=== PATIENT | female | born 1950 | race Caucasian/White ===

== ENCOUNTER 2022-05-12 14:34 | Emergency (ER) | payer MEDICARE, SELFPAY ==
[2022-05-12 14:39] VITALS: BP 135/71; PULSE 89; RESP 18; TEMP 36.6; O2SAT 98; BMI 23.6
[2022-05-12 15:02] VITALS: PULSE 89; O2SAT 95
--- NOTE | 2022-05-12 15:21 | CRLHL7_ITS ---
For Patients: As a result of the Century Cures Act, medical imaging exams and procedure reports are released immediately into your electronic medical record. You may view this report before your referring provider. If you have questions, please contact your health care provider. INDICATION: COUGH HISTORY: Cough. COMPARISON: None. TECHNIQUE: Chest, 2 views. FINDINGS: Heart size is obscured. There is a mass present in the right lung, which is suspicious for malignancy. Chest CT is suggested for further assessment. This involves the right middle lobe, and on the lateral projection, measures approximately 15 cm in dimension. There is no pneumothorax. The left lung and pleural space are within normal limits. Case was reviewed with Dr. Patricia of the emergency department, 05/12/2022, 1625 hours. IMPRESSION: 1. Region of masslike consolidation in the right lung. 2. No comparison exam is available for review. Chest CT is suggested for further assessment. Dictated by Too Greenberg MD @ 05/12/2022 4:27:09 PM Dictated by: Too Greenberg MD @ 05/12/2022 16:27:15 (Electronically Signed)
--- OUTSIDE RECORDS SUMMARY | 2022-05-12 15:37 | XMS_ITS | Clinical Summary ---
:1950 Author Organization [facility] [place] [address] Care Team Providers Name Role Phone Chitra Bruno MD Primary Care Provider [phone] Allergies Active Allergy Reactions Severity Noted Date Comments Penicillins 09/05/2010 Sulfa (Sulfonamide Antibiotics) 1 Medications Medication Sig Dispensed Refills Start Date End Date Status estrogens conj Take 1 tablet by 0 09/05/2010 Active synthetic (CENESTIN) mouth once daily. 0.9 mg tablet FLUoxetine (PROZAC) 10 Take 1 capsule by 0 1 Active mg capsule mouth every morning. alendronate (FOSAMAX) Take 1 tablet by 12 tablet 3 09/28/2010 Active 70 mg mouth once a week tabletIndications: in the morning. Osteoporosis Take on empty stomach with full glass of water. Do not lie down for 1 hr. Active Problems Problem Noted Date Osteopenia 09/05/2010 Immunizations Name Administration Dates Next Due Influenza, IIV3 (Age >=3 years) 09/05/2010 Tdap 09/05/2010 Family History Medical History Relation Name Comments Cancer Father bladder Cancer Mother ovarian, age 65 Cancer-breast No Family History Relation Name Status Comments Father Mother Social History Tobacco Use Types Packs/Day Years Used Date Never Smoker Smokeless Tobacco: Never Used Alcohol Use Standard Drinks/Week Comments Yes 0 (1 standard drink = 0.6 oz pure alcoho l) occa Alcohol Habits Answer Date Recorded How often do you have a drink containing alcohol? Not asked How many drinks containing alcohol do you have on a typical Not asked day when you are drinking? How often do you have six or more drinks on one occasion? No t asked Comment: occa 09/05/2010 Sex Assigned at Date Recorded Not on file Obstetrics History Last Filed Vital Signs Vital Sign Reading Time Taken Comments Blood Pressure 118/78 09/28/2010 2:38 PM [employer] Pulse 71 09/28/2010 2:38 PM [employer] Temperature - - Respiratory Rate - - Oxygen Saturation - - Inhaled Oxygen Concentration - - Weight 85.2 kg (187 lb 12.8 oz) 09/28/2010 2:38 PM [employer] Height 174 cm (5' 8.5) 09/05/2010 3:52 PM [employer] Body Mass Index 28.14 09/05/2010 3:52 PM [employer] Plan of Treatment Health Maintenance Due Date Last Done Comments COVID-19 vaccine series (#1) 01/25/1951 Depression screening for age 12+ 1964 BMI (ht and wt on same day) for age 18+ 1970 Hepatitis C screening for age 18-79 1970 Colonoscopy through age 75 1997 Lipids for age 45-75 1997 Zoster (shingles) series for age 50+ (1 of 2002 2) Mammogram for age 45-75 09/21/2011 09/21/2010, 09/05/2010 DEXA/DXA scan for age 65+ 2017 09/12/2010 Pneumococcal series for age 65+ (1 - PCV) 2017 Tetanus booster 09/05/2020 09/05/2010 Influenza for age 65+ 04/26/2022 09/05/2010 Tdap Completed 09/05/2010 Results Not on filefrom Last 3 Months Insurance Payer Benefit Plan / Subscriber ID Effective Dates Phone Addre ss Type Group [employer]UE [employer]OSS [employer] OF [id number] 2010-Present [address] [place] [address] Care Teams Director Of Marketing Communications Relationship Specialty Start Date End Date Chitra Bruno MD PCP - General Family Practice 08/29/10 [address] [place] [address]
[2022-05-12] MEDS: IPRAT-ALBUT 0.5-2.5 MG/3 ML NEB 1 NEB IH (15:40)
--- NOTE | 2022-05-12 15:45 | ED_ITS ---
HPI - SOB/Dyspnea General Date Seen: 05/12/22 <Tony Patricia MD - Last Filed: 05/13/22 20:10> Chief Complaint: Shortness of Breath/Dyspnea <Tony Patricia MD - Last Filed: 05/13/22 20:10> Stated Complaint: Short of Breath <Tony Patricia MD - Last Filed: 05/13/22 20:10> Time Seen by Provider: 05/12/22 14:37 <Tony Patricia MD - Last Filed: 05/13/22 20:10> Source: patient <Tony Patricia MD - Last Filed: 05/13/22 20:10> Mode of arrival: ambulatory <Tony Patricia MD - Last Filed: 05/13/22 20:10> Limitations: no limitations <Tony Patricia MD - Last Filed: 05/13/22 20:10> History of Present Illness HPI Narrative: Patient is a helen 71-year-old female presents here with the 3 day history of progressive shortness of breath, she notices this when she moves around or talks, and after talking to the nurse line today, they suggested she comes in to be seen. Is noted with this she has had a runny nose, postnasal drip, and a cough. Low-grade fever, but she has not been really good about taking her temperature the highest she has got is 99. She denies any previous history of cardiac or pulmonary problems, there is no purulence to her sputum, she has had no chest pain, leg swelling, nausea vomiting, her appetites been good. She is COVID vaccinated x4, her son who was also sick, and she feels she may have got that from him. He tested COVID negative 3 times. <Tony Patricia MD - Last Filed: 05/13/22 20:10> MD elicited complaint: shortness of breath and cough <Tony Patricia MD - Last Filed: 05/13/22 20:10> Onset (ago): day(s) <Tony Patricia MD - Last Filed: 05/13/22 20:10> Timing: constant and progressively worsening <Tony Patricia MD - Last Filed: 05/13/22 20:10> Severity: moderate <Tony Patricia MD - Last Filed: 05/13/22 20:10> Exacerbating factors: coughing and talking <Tony Patricia MD - Last Filed: 05/13/22 20:10> Relieving factors: upright position <Tony Patricia MD - Last Filed: 05/13/22 20:10> Associated symptoms: wheezing and chest congestion <Tony Patricia MD - Last Filed: 05/13/22 20:10> Treatment prior to arrival: other (Treated with a decongestant x1) <Tony Patricia MD - Last Filed: 05/13/22 20:10> Related Data Home oxygen amount: none <Tony Patricia MD - Last Filed: 05/13/22 20:10> Home Medications: Home Medications Medication Instructions Recorded Confirmed acetaminophen 500 mg tablet mg PO .As Needed as needed PRN 03/14/22 03/14/22 ascorbate calcium (vitamin C) 500 500 mg PO BID 03/14/22 03/14/22 mg tablet ascorbic acid (vitamin C) 1,000 mg 1 g PO DAILY 03/14/22 03/14/22 tablet cholecalciferol (vitamin D3) 50 2,000 unit PO DAILY 03/14/22 03/14/22 mcg (2,000 unit) capsule cyanocobalamin (vitamin B-12) 1,000 mcg PO .weekly 03/14/22 03/14/22 1,000 mcg tablet glucosamine sulfate 1,500 mg oral mg PO DAILY 03/14/22 03/14/22 powder packet ibuprofen 200 mg tablet mg PO PRN 03/14/22 03/14/22 multivitamin with minerals-ferrous tab PO DAILY 03/14/22 03/14/22 sulfate 4.5 mg iron tablet (One Daily Multivitamins with Minerals) tumeric 100 mg-wallace 150 mg-olive cap PO DAILY 03/14/22 03/14/22 50 mg-oreg 150 mg-caprylate capsule zinc 50 mg tablet 50 mg PO QDAY 03/14/22 03/14/22 Previous Rx's Medication Instructions Recorded alendronate 70 mg tablet 70 mg PO .Every 7 Days #12 tabs 03/14/22 estradiol 0.5 mg tablet 0.5 mg PO QDAY #90 tabs 03/14/22 sulfuric acid 30 %-sulfonated 1 applic mucous membrane ONCE PRN 03/14/22 phenol 50 % mucosal swab pain 2 doses #12 ea (Debacterol) doxycycline monohydrate 100 mg 100 mg PO BID #19 caps 05/12/22 capsule <Tony Patricia MD - Last Filed: 05/13/22 20:10> Allergies/Adverse Reactions: Allergies Allergy/AdvReac Type Severity Reaction Status Date / Time penicillin V Allergy Mild Rash Verified 05/12/22 16:45 Sulfa (Sulfonamide Allergy Mild Verified 05/12/22 16:45 Antibiotics) <Tony Patricia MD - Last Filed: 05/13/22 20:10> Review of Systems Status of ROS: Reports: 10 or more systems reviewed and unremarkable except as noted in History and below <Tony Patricia MD - Last Filed: 05/13/22 20:10> PFSH PFS Medical History: Medical History Fracture of distal end of right radius History of fracture of wrist (08/2017) History of in vitro fertilization Hot flashes due to menopause Left shoulder pain Osteopenia (2017) <Tony Patricia MD - Last Filed: 05/13/22 20:10> Surgical History: Surgical History History of bilateral cataract extraction (2017) History of colonoscopy History of surgery on wrist History of total abdominal hysterectomy and bilateral salpingo-oophorectomy (2002) <Tony Patricia MD - Last Filed: 05/13/22 20:10> Family History: Family History Father Bladder cancer, Onset Age: 60 High blood pressure Paternal Grandfather Coronary artery disease Mother Ovarian cancer, Onset Age: 65 Sister Thyroid disease <Tony Patricia MD - Last Filed: 05/13/22 20:10> Social History: Social History Narrative: exercises regularly- 3-4/week gym, weights, cardio non-smoker rarely consumes alcohol lives [place] lives with 21 yo adopted Aspergers son Smoking Status: Never smoker How often do you have a drink containing alcohol: monthly or less How often do you have six or more drinks on one occasion: Never AUDIT-C Alcohol total score: 1 Non-prescribed substance use: denies use Little interest or pleasure in doing things: several days Feeling down, depressed, or hopeless: several days <Tnoy Patricia MD - Last Filed: 05/13/22 20:10> Exam Narrative: Exam Narrative: Patient is seen in the room, she does have a bit of a stuttering conversation associated with not being able to get all of her sentences out. She is alert and oriented x3, with good color her pupils are equal round react to light there is no scleral icterus redness TMs are normal oropharynx is normal, neck is supple full range of motion JVP is flat, she has musical wheezes in all lung wood, and appears to be hyperinflated to this examiner. No dullness to percussion and no crackles noted, heart sounds S1-S2 is normal no S3-S4 clicks murmurs or gallops, her abdomen is soft there is no guarding no past splenomegaly skin reveals no petechiae or rashes, there is no edema of her lower extremities negative Homans sign, pulses are normal, she moves her upper lower extremities through normal range of motion right versus left symmetrical, with normal proximal and distal muscle strength. <Tony Patricia MD - Last Filed: 05/13/22 20:10> Const: Vital Signs, click to edit/add: Vital Signs - 24 hr 05/12/22 14:39 05/12/22 15:02 Temperature 97.8 F Pulse Rate [Right Pulse Oximeter] 89 89 Respiratory Rate 18 Blood Pressure [Ri ght Upper Arm] 135/71 Pulse Oximetry 98 95 Oxygen Delivery Me thod Room Air Room Air <Tony Patricia MD - Last Filed: 05/13/22 20:10> Vital Signs, click to edit/add: Vital Signs - 24 hr 05/12/22 14:39 05/12/22 15:02 Temperature 97.8 F Pulse Rate [Right Pulse Oximeter] 89 89 Respiratory Rate 18 Blood Pressure [Ri ght Upper Arm] 135/71 Pulse Oximetry 98 95 Oxygen Delivery Me thod Room Air Room Air <Joyce Levin MD - Last Filed: 05/12/22 19:19> Documenting provider has reviewed patient's vital signs: yes <Tony Patricia MD - Last Filed: 05/13/22 20:10> Course Reevaluation(s) Reevaluation #1: Have reviewed with patient in shown her a picture of her chest x-ray, that it is abnormal on the right side. We will bridge seed with a chest CT PE protocol. Her D-dimer is just very minimally elevated. Radiology had called Dr. Patricia and I was in the office when they called to report her abnormal chest x-ray. She has been getting recurrent aphthous ulcers, nasal congestion and headache. She states the aphthous ulcers, and then the other symptoms come. I do note when she is talking to me that she is a bit tachypneic just talking in regular sentences. She is not overtly hypoxic however. <Joyce Levin MD - Last Filed: 05/12/22 19:19> Time: 16:39 <Joyce Levin MD - Last Filed: 05/12/22 19:19> Reevaluation #2: Reviewed with patient her CT. There are no pulmonary emboli, there are possibly some infectious or inflammatory infiltrates in the right upper lobe, mass in the right middle lobe. We discussed that there was concern that this could be a cancerous process. She is going to need further workup an outpatient evaluation. I do know that [place] has a pulmonary clinic that specializes and masses and nodules, new diagnosis of cancers. She is going to need to contact her clinic and get set up for appropriate follow-up. She is not hypoxic here, does not require hospitalization or inpatient workup of this at this time. <Joyce Levin MD - Last Filed: 05/12/22 19:19> Time: 19:08 <Joyce Levin MD - Last Filed: 05/12/22 19:19> Vital Signs Vital signs: Initial Vital Signs Temperature 97.8 F 05/12/22 14:39 Temperature Source Temporal Artery Scan 05/12/22 14:39 Pulse Rate 89 05/12/22 14:39 Respiratory Rate 18 05/12/22 14:39 Blood Pressure 135/71 05/12/22 14:39 Blood Pressure Mean 92 05/12/22 14:39 Blood Pressure Position Sitting 05/12/22 14:39 Pulse Oximetry 98 05/12/22 14:39 Oxygen Delivery Method 05/12/22 14:39 Vital Signs Temperature 97.8 F 05/12/22 14:39 Pulse Rate 89 05/12/22 14:39 Respiratory Rate 18 05/12/22 14:39 Blood Pressure 135/71 05/12/22 14:39 Pulse Oximetry 98 05/12/22 14:39 Oxygen Delivery Method 05/12/22 14:39 Temperature 97.8 F 05/12/22 19:43 Pulse Rate 98 05/12/22 19:43 Respiratory Rate 18 05/12/22 19:43 Blood Pressure 131/57 L 05/12/22 19:43 Pulse Oximetry 95 05/12/22 19:15 Oxygen Delivery Method 05/12/22 19:15 <Tony Patricia MD - Last Filed: 05/13/22 20:10> Initial Vital Signs Temperature 97.8 F 05/12/22 14:39 Temperature Source Temporal Artery Scan 05/12/22 14:39 Pulse Rate 89 05/12/22 14:39 Respiratory Rate 18 05/12/22 14:39 Blood Pressure 135/71 05/12/22 14:39 Blood Pressure Mean 92 05/12/22 14:39 Blood Pressure Position Sitting 05/12/22 14:39 Pulse Oximetry 98 05/12/22 14:39 Oxygen Delivery Method 05/12/22 14:39 Vital Signs Temperature 97.8 F 05/12/22 14:39 Pulse Rate 89 05/12/22 14:39 Respiratory Rate 18 05/12/22 14:39 Blood Pressure 135/71 05/12/22 14:39 Pulse Oximetry 98 05/12/22 14:39 Oxygen Delivery Method 05/12/22 14:39 Temperature 97.8 F 05/12/22 19:43 Pulse Rate 98 05/12/22 19:43 Respiratory Rate 18 05/12/22 19:43 Blood Pressure 131/57 L 05/12/22 19:43 Pulse Oximetry 95 05/12/22 19:15 Oxygen Delivery Method 05/12/22 19:15 <Joyce Levin MD - Last Filed: 05/12/22 19:19> MDM - SOB/Dyspnea MDM Narrative Medical decision making narrative: Life-threatening differential diagnosis includes occluded COPD exacerbation, pulmonary edema, acute coronary syndromes, pulmonary embolism, pneumonia, and pneumothorax. Other differential diagnosis considerations include asthma, bronchitis as well as other etiologies We will test her for COVID, will do the normal shortness of breath workup, we will get a chest x-ray, and I will give her a DuoNeb now. As she is wheezy. <Tony Patricia MD - Last Filed: 05/13/22 20:10> Lab Data Attestation: I reviewed the patient's lab results. <Joyce Levin MD - Last Filed: 05/12/22 19:19> Labs: Lab Results 05/12/22 05/12/22 05/12/22 Range/Units 14:49 14:50 15:21 WBC (4.50-11.00) K/uL RBC (4.00-5.20) m/uL Hgb (12.0-16.0) gm/dL Hct (33.0-51.0) % MCV (80-100) fL MCH (26-34) pg MCHC (32-36) gm/dL RDW Coeff of [place] (11.5-15.5) % Plt Count (140-440) K/uL Neut % (Auto) (42.0-72.0) % Lymph % (Auto) (20-44) % Emmons % (Auto) (0.0-11.0) % Eos % (Auto) (0.0-7.0) % Baso % (Auto) (0.0-3.0) % Neut # (Auto) (1.7-7.0) K/uL Lymph # (Auto) (0.90-2.90) K/uL Emmons # (Auto) (0.00-0.90) K/UL Eos # (Auto) (0.00-0.50) K/uL Baso # (Auto) (0.00-0.30) K/uL Abs Immat Gran (auto) (0.00-0.30) K/uL D-Dimer Quant (PE/DVT) (0.00-0.50) ug/ml Sodium (135-149) mmol/L Potassium (3.6-5.1) mmol/L Chloride (96-114) mmol/L Carbon Dioxide (20-32) mmol/L BUN (7-30) mg/dL Creatinine (0.5-1.5) mg/dL Estimated Creat Clear Estimated GFR ml/min Glucose (60-115) mg/dL Lactate (0.5-1.9) mmol/L Calcium (8.4-10.6) mg/dL C-Reactive Protein (0.5-1.0) mg/dL NT-Pro-B Natriuret Pep (0-125) PG/mL SARS-CoV-2 (PCR) Negative SARS-CoV-2 Negative SARS-CoV-2 (Negative) Influenza Type A (PCR) Negative PCR FLU A (Negative) Influenza Type B (PCR) Negative PCR FLU B (Negative) RSV (PCR) Negative PCR RSV (Negative) POC Troponin I 0.00 L (0.01-0.04) ng/ml 05/12/22 05/12/22 05/12/22 Range/Units 15:45 15:45 15:45 WBC 17.78 H (4.50-11.00) K/uL RBC 4.89 (4.00-5.20) m/uL Hgb 14.4 (12.0-16.0) gm/dL Hct 43.3 (33.0-51.0) % MCV 89 (80-100) fL MCH 29 (26-34) pg MCHC 33 (32-36) gm/dL RDW Coeff of [place] 12.9 (11.5-15.5) % Plt Count 279 (140-440) K/uL Neut % (Auto) 80.2 H (42.0-72.0) % Lymph % (Auto) 10.9 L (20-44) % Emmons % (Auto) 8.7 (0.0-11.0) % Eos % (Auto) 0.0 (0.0-7.0) % Baso % (Auto) 0.0 (0.0-3.0) % Neut # (Auto) 14.30 H (1.7-7.0) K/uL Lymph # (Auto) 1.90 (0.90-2.90) K/uL Emmons # (Auto) 1.50 H (0.00-0.90) K/UL Eos # (Auto) 0.00 (0.00-0.50) K/uL Baso # (Auto) 0.00 (0.00-0.30) K/uL Abs Immat Gran (auto) 0.04 (0.00-0.30) K/uL D-Dimer Quant (PE/DVT) 0.52 H (0.00-0.50) ug/ml Sodium 133 L (135-149) mmol/L Potassium 3.7 (3.6-5.1) mmol/L Chloride 98 (96-114) mmol/L Carbon Dioxide 28 (20-32) mmol/L BUN 15 (7-30) mg/dL Creatinine 0.6 (0.5-1.5) mg/dL Estimated Creat Clear 53.56 Estimated GFR 97 ml/min Glucose 114 (60-115) mg/dL Lactate (0.5-1.9) mmol/L Calcium 8.5 (8.4-10.6) mg/dL C-Reactive Protein 8.2 H (0.5-1.0) mg/dL NT-Pro-B Natriuret Pep 284 H (0-125) PG/mL SARS-CoV-2 (PCR) (Negative) Influenza Type A (PCR) (Negative) Influenza Type B (PCR) (Negative) RSV (PCR) (Negative) POC Troponin I (0.01-0.04) ng/ml 05/12/22 Range/Units 15:45 WBC (4.50-11.00) K/uL RBC (4.00-5.20) m/uL Hgb (12.0-16.0) gm/dL Hct (33.0-51.0) % MCV (80-100) fL MCH (26-34) pg MCHC (32-36) gm/dL RDW Coeff of [place] (11.5-15.5) % Plt Count (140-440) K/uL Neut % (Auto) (42.0-72.0) % Lymph % (Auto) (20-44) % Emmons % (Auto) (0.0-11.0) % Eos % (Auto) (0.0-7.0) % Baso % (Auto) (0.0-3.0) % Neut # (Auto) (1.7-7.0) K/uL Lymph # (Auto) (0.90-2.90) K/uL Emmons # (Auto) (0.00-0.90) K/UL Eos # (Auto) (0.00-0.50) K/uL Baso # (Auto) (0.00-0.30) K/uL Abs Immat Gran (auto) (0.00-0.30) K/uL D-Dimer Quant (PE/DVT) (0.00-0.50) ug/ml Sodium (135-149) mmol/L Potassium (3.6-5.1) mmol/L Chloride (96-114) mmol/L Carbon Dioxide (20-32) mmol/L BUN (7-30) mg/dL Creatinine (0.5-1.5) mg/dL Estimated Creat Clear Estimated GFR ml/min Glucose (60-115) mg/dL Lactate 0.7 (0.5-1.9) mmol/L Calcium (8.4-10.6) mg/dL C-Reactive Protein (0.5-1.0) mg/dL NT-Pro-B Natriuret Pep (0-125) PG/mL SARS-CoV-2 (PCR) (Negative) Influenza Type A (PCR) (Negative) Influenza Type B (PCR) (Negative) RSV (PCR) (Negative) POC Troponin I (0.01-0.04) ng/ml <Tony Patricia MD - Last Filed: 05/13/22 20:10> Lab Results 05/12/22 05/12/22 05/12/22 Range/Units 14:49 14:50 15:21 WBC (4.50-11.00) K/uL RBC (4.00-5.20) m/uL Hgb (12.0-16.0) gm/dL Hct (33.0-51.0) % MCV (80-100) fL MCH (26-34) pg MCHC (32-36) gm/dL RDW Coeff of [place] (11.5-15.5) % Plt Count (140-440) K/uL Neut % (Auto) (42.0-72.0) % Lymph % (Auto) (20-44) % Emmons % (Auto) (0.0-11.0) % Eos % (Auto) (0.0-7.0) % Baso % (Auto) (0.0-3.0) % Neut # (Auto) (1.7-7.0) K/uL Lymph # (Auto) (0.90-2.90) K/uL Emmons # (Auto) (0.00-0.90) K/UL Eos # (Auto) (0.00-0.50) K/uL Baso # (Auto) (0.00-0.30) K/uL Abs Immat Gran (auto) (0.00-0.30) K/uL D-Dimer Quant (PE/DVT) (0.00-0.50) ug/ml Sodium (135-149) mmol/L Potassium (3.6-5.1) mmol/L Chloride (96-114) mmol/L Carbon Dioxide (20-32) mmol/L BUN (7-30) mg/dL Creatinine (0.5-1.5) mg/dL Estimated Creat Clear Estimated GFR ml/min Glucose (60-115) mg/dL Lactate (0.5-1.9) mmol/L Calcium (8.4-10.6) mg/dL C-Reactive Protein (0.5-1.0) mg/dL NT-Pro-B Natriuret Pep (0-125) PG/mL SARS-CoV-2 (PCR) Negative SARS-CoV-2 Negative SARS-CoV-2 (Negative) Influenza Type A (PCR) Negative PCR FLU A (Negative) Influenza Type B (PCR) Negative PCR FLU B (Negative) RSV (PCR) Negative PCR RSV (Negative) POC Troponin I 0.00 L (0.01-0.04) ng/ml 05/12/22 05/12/22 05/12/22 Range/Units 15:45 15:45 15:45 WBC 17.78 H (4.50-11.00) K/uL RBC 4.89 (4.00-5.20) m/uL Hgb 14.4 (12.0-16.0) gm/dL Hct 43.3 (33.0-51.0) % MCV 89 (80-100) fL MCH 29 (26-34) pg MCHC 33 (32-36) gm/dL RDW Coeff of [place] 12.9 (11.5-15.5) % Plt Count 279 (140-440) K/uL Neut % (Auto) 80.2 H (42.0-72.0) % Lymph % (Auto) 10.9 L (20-44) % Emmons % (Auto) 8.7 (0.0-11.0) % Eos % (Auto) 0.0 (0.0-7.0) % Baso % (Auto) 0.0 (0.0-3.0) % Neut # (Auto) 14.30 H (1.7-7.0) K/uL Lymph # (Auto) 1.90 (0.90-2.90) K/uL Emmons # (Auto) 1.50 H (0.00-0.90) K/UL Eos # (Auto) 0.00 (0.00-0.50) K/uL Baso # (Auto) 0.00 (0.00-0.30) K/uL Abs Immat Gran (auto) 0.04 (0.00-0.30) K/uL D-Dimer Quant (PE/DVT) 0.52 H (0.00-0.50) ug/ml Sodium 133 L (135-149) mmol/L Potassium 3.7 (3.6-5.1) mmol/L Chloride 98 (96-114) mmol/L Carbon Dioxide 28 (20-32) mmol/L BUN 15 (7-30) mg/dL Creatinine 0.6 (0.5-1.5) mg/dL Estimated Creat Clear 53.56 Estimated GFR 97 ml/min Glucose 114 (60-115) mg/dL Lactate (0.5-1.9) mmol/L Calcium 8.5 (8.4-10.6) mg/dL C-Reactive Protein 8.2 H (0.5-1.0) mg/dL NT-Pro-B Natriuret Pep 284 H (0-125) PG/mL SARS-CoV-2 (PCR) (Negative) Influenza Type A (PCR) (Negative) Influenza Type B (PCR) (Negative) RSV (PCR) (Negative) POC Troponin I (0.01-0.04) ng/ml 05/12/22 Range/Units 15:45 WBC (4.50-11.00) K/uL RBC (4.00-5.20) m/uL Hgb (12.0-16.0) gm/dL Hct (33.0-51.0) % MCV (80-100) fL MCH (26-34) pg MCHC (32-36) gm/dL RDW Coeff of [place] (11.5-15.5) % Plt Count (140-440) K/uL Neut % (Auto) (42.0-72.0) % Lymph % (Auto) (20-44) % Emmons % (Auto) (0.0-11.0) % Eos % (Auto) (0.0-7.0) % Baso % (Auto) (0.0-3.0) % Neut # (Auto) (1.7-7.0) K/uL Lymph # (Auto) (0.90-2.90) K/uL Emmons # (Auto) (0.00-0.90) K/UL Eos # (Auto) (0.00-0.50) K/uL Baso # (Auto) (0.00-0.30) K/uL Abs Immat Gran (auto) (0.00-0.30) K/uL D-Dimer Quant (PE/DVT) (0.00-0.50) ug/ml Sodium (135-149) mmol/L Potassium (3.6-5.1) mmol/L Chloride (96-114) mmol/L Carbon Dioxide (20-32) mmol/L BUN (7-30) mg/dL Creatinine (0.5-1.5) mg/dL Estimated Creat Clear Estimated GFR ml/min Glucose (60-115) mg/dL Lactate 0.7 (0.5-1.9) mmol/L Calcium (8.4-10.6) mg/dL C-Reactive Protein (0.5-1.0) mg/dL NT-Pro-B Natriuret Pep (0-125) PG/mL SARS-CoV-2 (PCR) (Negative) Influenza Type A (PCR) (Negative) Influenza Type B (PCR) (Negative) RSV (PCR) (Negative) POC Troponin I (0.01-0.04) ng/ml <Joyce Levin MD - Last Filed: 05/12/22 19:19> Imaging Data Chest x-ray: Attestation: I have reviewed the pertinent imaging results. <Joyce Bartholomew MD - Last Filed: 05/12/22 19:19> Radiologist's impression: Patient: NANY NINO Facility:?[facility] Patient ID:?[id number] Site Patient ID:?[id number]. Site :?[id number] Study:?XRay Chest 2 IMAGES-05/12/2022 3:51:33 PM Ordering Physician:Ricco Jimenez Final Report: INDICATION: COUGH HISTORY: Cough. COMPARISON: None. TECHNIQUE: Chest, 2 views. FINDINGS: Heart size is obscured. There is a mass present in the right lung, which is suspicious for malignancy. Chest CT is suggested for further assessment. This involves the right middle lobe, and on the lateral projection, measures approximately 15 cm in dimension. There is no pneumothorax. The left lung and pleural space are within normal limits. Case was reviewed with Dr. Patricia of the emergency department, 05/12/2022, 1625 hours. IMPRESSION: 1. Region of masslike consolidation in the right lung. 2. No comparison exam is available for review. Chest CT is suggested for further assessment. Dictated by Too Greenberg MD @ 05/12/2022 4:27:09 PM Dictated by: Too Greenberg MD @ 05/12/2022 16:27:15 <Joyce Levin MD - Last Filed: 05/12/22 19:19> CT scan - chest: Attestation: I have reviewed the pertinent imaging results. <Joyce Bartholomew MD - Last Filed: 05/12/22 19:19> Radiologist's impression: Patient: NANY NINO Facility:?[facility] Patient ID:?[id number] Site Patient ID:?[id number]. 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 No pulmonary emboli. Prevascular mediastinal adenopathy. Heart size is normal. No pericardial effusion. Small right effusion. subtle ill-defined centrilobular nodules peripheral right upper lobe could be infectious or inflammatory atelectasis in the posterior right upper lobe. There is a large right middle lobe heterogeneous mass measuring 16 centimeters craniocaudad dimension by a 9.5 x 14.5 cm area slight mass effect on the right cardiac border. Small right pericardial effusion. Small low-attenuation lesions in the left kidney probably reflecting cysts. No suspicious bony lesions. Impression: 1. Large 16 x 9.5 x 14.5 centimeter mass centered in the right middle lobe suspicious for malignancy. Mild mediastinal prevascular adenopathy. Small right effusion. 2. Subtle ill-defined centrilobular opacities in the right upper lobe could be infectious or inflammatory. Please note that all CT scans at this facility use dose modulation, iterative reconstruction, and/or weight-based dosing when appropriate to reduce radiation dose to as low as reasonably achievable. Dictated by Darcy Luna MD @ 05/12/2022 6:09:29 PM (Electronic Signature) <Joyce Levin MD - Last Filed: 05/12/22 19:19> ECG Data Attestation: I personally reviewed and interpreted this ECG as follows: (Sinus rhythm, 95 beats per minute. Nonspecific flipped T-waves V1 V2 without any significant ST segment changes. Flipped T-wave aVL without ST segment change) <Joyce Levin MD - Last Filed: 05/12/22 19:19> ECG interpretation date: 05/12/22 <Joyce Levin MD - Last Filed: 05/12/22 19:19> Critical Care Time Critical Care Time Critical Care Time: No <Joyce Levin MD - Last Filed: 05/12/22 19:19> Discharge Plan Discharge Clinical Impression: Infiltrate of lung present on computed tomography, Shortness of breath, Lung mass <Tony Patricia MD - Last Filed: 05/13/22 20:10> Patient Disposition: Home, Self-Care <Tony Patricia MD - Last Filed: 05/13/22 20:10> Condition: Stable <Tony Patricia MD - Last Filed: 05/13/22 20:10> Instructions: Bacterial Pneumonia (ED) <Tony Patricia MD - Last Filed: 05/13/22 20:10> Additional Instructions: Need to continue with oral antibiotics as there may be pneumonia on the CT scan. Need to follow up with primary provider next week remy and they will need to assist you in further appointments in work up of this lung mass. Acitivity as tolerated, do not push yourself to point of becoming short of breath. Should you develop increasing difficulty breathing, fever, coughing up blood or have further concerns, need to be re-evaluated. <Tony Patricia MD - Last Filed: 05/13/22 20:10> Activity Level: Activity as Tolerated <Tony Patricia MD - Last Filed: 05/13/22 20:10> Activity as Tolerated <Joyce Levin MD - Last Filed: 05/12/22 19:19> Prescriptions: New doxycycline monohydrate 100 mg capsule 100 mg PO BID Qty: 19 0RF No Action cholecalciferol (vitamin D3) 50 mcg (2,000 unit) capsule 2,000 unit PO DAILY Rx Instructions: MWF during the summer, daily during the winter. ibuprofen 200 mg tablet PO PRN acetaminophen 500 mg tablet PO .As Needed as needed PRN Rx Instructions: NO MORE THAN 4000 MG/DAY cyanocobalamin (vitamin B-12) 1,000 mcg tablet 1,000 mcg PO .weekly ascorbic acid (vitamin C) 1,000 mg tablet 1 g PO DAILY zinc 50 mg tablet 50 mg PO QDAY One Daily Multi-Vit w-Mineral 4.5 mg iron tablet PO DAILY ascorbate calcium (vitamin C) 500 mg tablet 500 mg PO BID glucosamine sulfate 1,500 mg powder in packet PO DAILY tsnoxwf-yfvg-xahmx-oreg-capryl 100 mg-150 mg- 50 mg-150 mg capsule PO DAILY Debacterol 30-50 % swab 1 applic mucous membrane ONCE PRN (Reason: pain) Qty: 12 0RF Rx Instructions: Use on after does ulcer 5-10 seconds x1, use as needed, then rinse mouth alendronate 70 mg tablet 70 mg PO .Every 7 Days Qty: 12 4RF estradiol 0.5 mg tablet 0.5 mg PO QDAY Qty: 90 4RF <Tony Patricia MD - Last Filed: 05/13/22 20:10> Follow Up/Referrals: Aury Estevez MD [Primary Care Provider] - <Tony Patricia MD - Last Filed: 05/13/22 20:10> Stand Alone Forms: [facility] Info Instructions <Tony Patricia MD - Last Filed: 05/13/22 20:10>
[2022-05-12 15:46] LABS: SARS PCR* Negative SARS-CoV-2 (Negative)
[2022-05-12 15:53] LABS: Lactate* 0.7 mmol/L (0.5-1.9)
[2022-05-12 15:56] LABS: Hematocrit 43.3 % (33.0-51.0); Hemoglobin* 14.4 gm/dL (12.0-16.0); Immature Granulocytes Abs Auto 0.04 K/uL (0.00-0.30); Lymphocytes Percent Auto 10.9 % (20-44); Mean Corpuscular HGB Conc 33 gm/dL (32-36); Mean Corpuscular Hemoglobin 29 pg (26-34); Mean Corpuscular Volume 89 fL (80-100); Monocytes Percent Auto 8.7 % (0.0-11.0); Neutrophils Percent Auto 80.2 % (42.0-72.0); Platelet Count* 279 K/uL (140-440); RDW Coefficient of Variation % 12.9 % (11.5-15.5); Red Blood Count 4.89 m/uL (4.00-5.20); White Blood Count* 17.78 K/uL (4.50-11.00)
--- NOTE | 2022-05-12 15:58 | ED.NURSE ---
Pt states she felt relief from wheezing while doing the neb, but states previous feeling of congestion and wheezing returned once the neb was complete.
[2022-05-12 16:01] LABS: Slide Review Reflex No
[2022-05-12 16:20] LABS: Chloride* 98 mmol/L (96-114); Potassium* 3.7 mmol/L (3.6-5.1); Sodium* 133 mmol/L (135-149)
[2022-05-12 16:23] LABS: Blood Urea Nitrogen* 15 mg/dL (7-30); Carbon Dioxide* 28 mmol/L (20-32); Creatinine* 0.6 mg/dL (0.5-1.5); D Dimer Quantitative* 0.52 ug/ml (0.00-0.50); Est. Creatinine Clearance* 53.56; Estimated Glomerular Filt Rate 97 ml/min
[2022-05-12 16:24] LABS: Calcium* 8.5 mg/dL (8.4-10.6); Glucose* 114 mg/dL (60-115)
[2022-05-12 16:26] LABS: C Reactive Protein* 8.2 mg/dL (0.5-1.0)
--- NOTE | 2022-05-12 16:30 | CRLHL7_ITS ---
For Patients: As a result of the Century Cures Act, medical imaging exams and procedure reports are released immediately into your electronic medical record. You may view this report before your referring provider. If you have questions, please contact your health care provider. 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 No pulmonary emboli. Prevascular mediastinal adenopathy. Heart size is normal. No pericardial effusion. Small right effusion. subtle ill-defined centrilobular nodules peripheral right upper lobe could be infectious or inflammatory atelectasis in the posterior right upper lobe. There is a large right middle lobe heterogeneous mass measuring 16 centimeters craniocaudad dimension by a 9.5 x 14.5 cm area slight mass effect on the right cardiac border. Small right pericardial effusion. Small low-attenuation lesions in the left kidney probably reflecting cysts. No suspicious bony lesions. Impression: 1. Large 16 x 9.5 x 14.5 centimeter mass centered in the right middle lobe suspicious for malignancy. Mild mediastinal prevascular adenopathy. Small right effusion. 2. Subtle ill-defined centrilobular opacities in the right upper lobe could be infectious or inflammatory. Please note that all CT scans at this facility use dose modulation, iterative reconstruction, and/or weight-based dosing when appropriate to reduce radiation dose to as low as reasonably achievable. Dictated by Darcy Luna MD @ 05/12/2022 6:09:29 PM (Electronically Signed)
[2022-05-12 16:31] LABS: NT Pro B Type NatriureticPept* 284 PG/mL (0-125)
[2022-05-12 17:25] VITALS: BP 135/59; PULSE 102; O2SAT 91
[2022-05-12 18:32] LABS: PCR FLU A Negative PCR FLU A (Negative); PCR FLU B Negative PCR FLU B (Negative); PCR RSV Negative PCR RSV (Negative); SARS PCR* Negative SARS-CoV-2 (Negative)
[2022-05-12 19:15] VITALS: BP 131/57; PULSE 98; O2SAT 95
[2022-05-12] MEDS: DOXYCYCLINE HYCLATE 100 MG CAPSULE PO (19:41)
[2022-05-12 19:43] VITALS: BP 131/57; PULSE 98; RESP 18; TEMP 36.6
== END 2022-05-12 19:44 | disposition home or self-care (01) ==
PROVIDERS: Family Medicine; Emergency Provider Family Medicine; PCP Family Medicine
DX: R91.8 Other nonspecific abnormal finding of lung field (principal); R06.02 Shortness of breath
CPT/HCPCS: 36415; 71046; 71260; 80048; 83605; 83880; 84484; 85025; 85379; 86140; 87502; 87634; 87635; 93005; 94640; 99285; A9270; Q9967

== ENCOUNTER 2022-06-11 13:06 | Outpatient (CLI) | payer MEDICARE, SELFPAY ==
--- OUTSIDE RECORDS SUMMARY | 2022-06-11 13:10 | XMS_ITS | Encounter Summary ---
:1950 Author Organization [facility] Address [address] [place] [address] Care Team Providers Name Role Phone Elsewhere, Pcp Primary Care Provider Unavailable Reason for Referral Outpatient (Routine) - Closed Specialty Diagnoses / Procedures Referred By Contact Refer red To Contact Pulmonary Medicine Diagnoses Other Nonspecific Abnormal Finding Of Lung Field Aury Estevez [place] [facility] [place] M.D. [address] [place] [address] Referral ID Status Reason Start Date Expiration Date Visits Requ ested Visits Authorized [id number] Closed 05/15/2022 05/15/2023 1 1 Encounter Details Date Type Department Care Team Description 05/15/2022 Community [facility] Aury Estevez Other Nonspecific AND CLINICS Everett Kunz Abnormal Finding Of [address] [facility] [address] [facility] Lung [place] [address] [place], [place]) [phone] [id number] Social History Tobacco Use Types Packs/Day Years Used Date Smoking Tobacco: Never Assessed Alcohol Habits Answer Date Recorded How often do you have a drink containing Monthly or less 06/04/2022 alcohol? How many drinks containing alcohol do you have Patient does not drink 06/04/2022 on a typical day when you are drinking? How often do you have six or more drinks on one Never 06/04/2022 occasion? Social Isolation Answer Date Recorded In a typical week, how many times do you talk on the Three t imes a week 06/04/2022 phone with family, friends, or neighbors? How often do you get together with friends or Patient refuse d 06/04/2022 relatives? How often do you attend confucianist or spiritism Never 06/04/2022 services? Do you belong to any clubs or organizations such as No 06/04/2022 confucianist groups, unions, fraternal or athletic groups, or school groups? How often do you attend meetings of the clubs or Never 06/04/2022 organizations you belong to? Are you now , , , , 06/04/2022 never or living with a partner? Physical Activity Answer Date Recorded On average, how many days per week do you engage in moderate to 7 days 06/04/2022 strenuous exercise (like walking fast, running, jogging, dancing, swimming, biking, or other activities that cause a light or heavy sweat)? On average, how many minutes do you engage in exercise at th is 30 min 06/04/2022 level? Stress Answer Date Recorded Do you feel stress - tense, restless, nervous, or To some ex tent 06/04/2022 anxious, or unable to sleep at night because your mind is troubled all the time - these days? Financial Resource Strain Answer Date Recorded How hard is it for you to pay for the very basics like Not v michel hard 06/04/2022 food, housing, medical care, and heating? Intimate Partner Violence Answer Date Recorded Within the last year, have you been afraid of your partner o r No 06/04/2022 ex-partner? Within the last year, have you been humiliated or emotionall y No 06/04/2022 abused in other ways by your partner or ex-partner? Within the last year, have you been kicked, hit, slapped, or No 06/04/2022 otherwise physically hurt by your partner or ex-partner? Within the last year, have you been raped or forced to have any No 06/04/2022 kind of sexual activity by your partner or ex-partner? Food Insecurity Answer Date Recorded Within the past 12 months, you worried that your food would Never true 06/04/2022 run out before you got money to buy more. Within the past 12 months, the food you bought just didn't N ever true 06/04/2022 last and you didn't have money to get more. Transportation Needs Answer Date Recorded In the past 12 months, has lack of transportation kept you f rom No 06/04/2022 medical appointments or from getting medications? In the past 12 months, has lack of transportation kept you f rom No 06/04/2022 meetings, work, or getting things needed for daily living? Housing Stability Answer Date Recorded In the last 12 months, was there a time when you were not ab le No 06/04/2022 to pay the mortgage or rent on time? In the last 12 months, how many places have you lived? 1 06/04/2022 In the last 12 months, was there a time when you did not hav e a No 06/04/[address] sleep or slept in a half-way (including now)? Sex Assigned at Date Recorded Female 06/04/2022 4:58 PM CDT documented as of this encounter Plan of Treatment Upcoming Encounters Date Type Specialty Care Team Description 07/12/2022 Appointment Radiology López Doran M .D. 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
--- OUTSIDE RECORDS SUMMARY | 2022-06-11 13:10 | XMS_ITS | Clinical Summary ---
:1950 Author Organization [facility] Address [address] [place] [address] Care Team Providers Name Role Phone Elsewhere, Pcp Primary Care Provider Unavailable Source Comments Patient records contain information from all sites at [facility]. For routine questions regarding patient records, call [phone] during business hours, M-F 8:00 AM - 5:00 PM Central Time. Record requests for emergency care only can be directed to [phone] at any time.[facility] Allergies Active Allergy Reactions Severity Noted Date Comments Penicillins Rash 09/05/2010 Sulfa (Sulfonamide Antibiotics) Rash 1 Medications Medication Sig Dispensed Refills Start Date End Date Status estradiol Take 1 mg by 3 04/13/2018 Active (ESTRACE) 1 mg mouth daily. tablet Guaiatussin AC TAKE 5-10 ML BY 0 05/17/2022 Active 10-100 mg/5 mL MOUTH THREE liquid TIMES DAILY NEEDED FOR COUGH. alendronate Take 70 mg by 11 06/02/2018 06/05/2022 Di scontinued (FOSAMAX) 70 mg mouth once a tablet week. FLUoxetine Take 10 mg by 0 09/05/2010 06/05/2022 Dis continued (PROzac) 10 mg mouth. capsule FLUoxetine Take by mouth 3 04/26/2018 06/05/2022 Dis continued (PROzac) 20 mg daily. capsule albuterol 90 INHALE 2 PUFFS 0 05/15/2022 06/05/2022 Discontinued mcg/actuation EVERY 4-6 HOURS inhaler NEEDED FOR SHORTNESS OF BREATH OR WHEEZING. doxycycline Take 100 mg by 0 05/13/2022 06/05/2022 D iscontinued monohydrate mouth 2 (two) (MONODOX) 100 mg times a day. capsule Encounters Date Type Specialty Care Team Description 06/06/2022 Comprehensive Visit Pulmonary Medicine López Doran, Thymoma (Primary Dx); [facility]; Other Nonspecif ic Abnormal Finding Of Lung Field 06/06/2022 Ancillary Procedure Radiology Ronal Mass L Abril neumann M.D. 06/05/2022 Hospital Encounter Radiology Shlomo Hector M.D. 06/01/2022 Clinical Communication Admitting/Central Scheduling 06/01/2022 Hospital Encounter Laboratory Medicine Barbara Hector ss Lung [place] [facility] 06/01/2022 Hospital Encounter Radiology Shlomo Hector M.D. 05/16/2022 Documentation Pulmonary Medicine Mundo Hector M.D. 05/15/2022 Community Orders Heral[facility]erg, Other Nonsp ecific Aury Kunz M.D. Abnormal Find ing Of Lung Field (Rosangela Dx) from Last 3 Months Immunizations Name Administration Dates Next Due PCV13 01/03/2018 Family History Medical History Relation Name Comments Bladder cancer Father Hypertension Father Ovarian cancer Mother Coronary artery disease Paternal Grandfather Heart attack Paternal Grandfather Thyroid disease Sister Relation Name Status Comments Father Mother Paternal Grandfather Sister Social History Tobacco Use Types Packs/Day Years Used Date Smoking Tobacco: Never Smokeless Tobacco: Never Tobacco Cessation: Counseling Given: Not Answered Alcohol Habits Answer Date Recorded How often [...] 06/04/2022 relatives? How often do you attend latter-day or gnosticism Never 06/04/2022 services? Do you belong to any clubs or organizations such as No 06/04/2022 latter-day groups, unions, fraternal or athletic groups, or [...] or slept in a half-way (including now)? Education Answer Date Recorded What is the highest level of school Master's degree (e.g., M Marielena, MS, 06/04/2022 you have completed or the highest Milly, MEd, ASSISTANT REAL E[employer]GER, MADELYN) degree you have received? Sex Assigned at Date Recorded Female 06/04/2022 4:58 PM CDT Last Filed Vital Signs Vital Sign Reading Time Taken Comments Blood Pressure 146/78 06/06/2022 2:40 PM CDT Pulse 81 06/06/2022 2:40 PM CDT Temperature 35.4 ??C (95.8 ??F) 06/06/2022 2:40 PM CDT Respiratory Rate - - Oxygen Saturation 97% 06/06/2022 2:40 PM CDT rm air Inhaled Oxygen Concentration - - Weight 68.2 kg (150 lb 5.7 oz) 06/06/2022 2:40 PM CDT Height 174 cm (5' 8.5) 06/06/2022 2:40 PM CDT Body Mass Index 22.53 06/06/2022 2:40 PM CDT Plan of Treatment Upcoming Encounters Date Type Specialty Care Team Description 07/12/2022 Appointment Radiology López Doran M .D. [address] [phone] (Wo rk) Health Maintenance Due Date Last Done Comments Bone Density Scan (Osteoporosis 1950 Screen) CT Colonography 1950 Cologuard 1950 Colonoscopy 1950 Colorectal Cancer Screening 1950 FIT 1950 Hepatitis C Screening 1950 Mammogram 1950 Zoster Vaccines (1 of 2) 2002 Depression Screening (Annual 08/26/2021 PHQ-2) COVID-19 Vaccine (4 - Booster for 09/05/2021 07/11/2021, , Pfizer series) 11/05/2020 Influenza Vaccine (#1) 2022 06/09/2021, 05/26/2019, 05/13/2019, Additional history exists DTaP,Tdap,and Td Vaccines (3 - Td 06/23/2022 06/23/2012, or Tdap) Fasting Glucose for Diabetes 06/01/2025 06/01/2022 Screening Pneumococcal vaccine (65+ years) Completed 04/08/2020, 06/2019, 01/03/2018 Fall Risk Screen (Annual) Completed 06/05/2022 Procedures Procedure Name Priority Date/Time Associated Comments Diagnosis INTERPRETATION OF RAD - Routine 06/06/2022 8:52 [facility] Result s for OUTSIDE CT CHEST (most inpatients AM CDT this pr ocedure and all are in the outpatients) results section. MR BRAIN WITHOUT AND RAD - Routine 06/05/2022 9:50 [facility] Res ults for WITH IV CONTRAST (most inpatients PM CDT this pr ocedure and all are in the outpatients) results section. PULMONARY FUNCTION Routine 06/05/2022 12:13 [facility] Resul ts for TESTS PM CDT this procedure are in the results section. PET CT SKULL TO THIGH RAD - Routine 06/01/2022 12:14 [facility] R esults for (most inpatients PM CDT this proced ure and all are in the outpatients) results section. COMPREHENSIVE Routine 06/01/2022 12:12 [facility] Results fo r METABOLIC PANEL, S/P PM CDT this pr ocedure are in the results section. CBC WITH Routine 06/01/2022 12:12 [facility] Results for DIFFERENTIAL, B PM CDT this procedu re are in the results section. OUTSIDE CT BODY Routine 05/12/2022 4:50 Results f or PM CDT this procedure are in the results section. OUTSIDE DX CHEST Routine 05/12/2022 3:40 Results for PM CDT this procedure are in the results section. from Last 3 Months Results Interpretation of Outside CT Chest (06/06/2022 8:52 AM CDT) Anatomical Region Laterality Modality Chest, Thoracic RST LOS, Thoracic ARZ LOS, Thoracic N/A Computed Tomography FLA LOS, Other, Body Specimen (Source) Anatomical Collection Method Collection Time Re ceived Time Location / / Volume Laterality 06/06/2022 10:02 AM CDT Impressions 06/06/2022 10:11 AM CDT 1. Negative for pulmonary embolism. 2. Large mass in the right hemithorax. 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 3. Right pleural effusion, hilar/mediast inal adenopathy, nodes in the right cardiophrenic angle several pulmonary micronodules and a lef t adrenal nodule are indeterminate for metastatic disease. Narrative 06/06/2022 10:11 AM CDT EXAM: ??INTERPRETATION OF OUTSIDE CT CHEST COMPARISON: ??None. FINDINGS: OUTSIDE CT ANGIOGRAPHY OF THE CHEST WITH INTRAVENOUS CONTRAST DATED 05/12/2022 No filling defects in the pulmonary denise barbara to suggest acute or chronic pulmonary thromboemboli are identified. There is a large heterogeneous density e nhancing mass in the right hemithorax that measures approximately 9 x 17 cm axially and exte nds over 15 cm craniocaudally. This abuts the mediastinum medially, the chest wall anteriorly/late rally and results in moderate compression of the lung, particularly the right middle lobe. Fat planes between the mass and the ascending thoracic aorta, pericardium, SVC and chest wall are obsc ured. A moderate right pleural effusion is concerning for potential pleural invasion although no d efinite pleural enhancement/nodularity is identified. The etiology is indeterminate but the morpho logy with vessels that apparently CT chest from the mediastinum and position are concerning for malignancy such as a thymoma. The appearance would be unusual for a primary pulmonary neoplasm . Pleural malignancy might also be considered but is probably less likely given the position and vascularity. The borderline enlarged right cardiophre george angle lymph node (series 5 image 166), a 12 mm left infrahilar node (series 5 image 108, 10 mm subcarinal nodes (image 92) and ill- defined soft tissue in the right paratracheal position are i ndeterminate for metastatic disease. Mild central bronchial wall thickening i s compatible with an inflammatory or infectious process such as bronchitis or asthma. There are few 1-3 mm pulmonary micronodu les (for example left upper lobe series 5 image 28, right lower lobe image 167) that are indetermi rekha. These are too small to further characterize but metastatic malignancy cannot be excluded . Minimal apical scarring. Probable left renal cyst. Approximately 10 mm nodule in the left adrenal gland is indeterminate. Otherwise the visualized upper abdomen a ppears negative. Procedure Note Dillon Danielle M.D. - 06/06/2022Fo rmatting of this note might be different from the original. EXAM: INTERPRETATION OF OUTSIDE CT CHEST COMPARISON: None. FINDINGS: OUTSIDE CT ANGIOGRAPHY OF THE CHEST WITH INTRAVENOUS CONTRAST DATED 05/12/2022 No filling defects in the pulmonary denise barbara to suggest acute or chronic pulmonary thromboemboli are identified. There is a large heterogeneous density e nhancing mass in the right hemithorax that measures approximately 9 x 17 cm axially and exte nds over 15 cm craniocaudally. This abuts the mediastinum medially, the chest wall anteriorly/late rally and results in moderate compression of the lung, particularly the right middle lobe. Fat planes between the mass and the ascending thoracic aorta, pericardium, SVC and chest wall are obsc ured. A moderate right pleural effusion is concerning for potential pleural invasion although no d efinite pleural enhancement/nodularity is identified. The etiology is indeterminate but the morpho logy with vessels that apparently CT chest from the mediastinum and position are concerning for malignancy such as a thymoma. The appearance would be unusual for a primary pulmonary neoplasm . Pleural malignancy might also be considered but is probably less likely given the position and vascularity. The borderline enlarged right cardiophre george angle lymph node (series 5 image 166), a 12 mm left infrahilar node (series 5 image 108, 10 mm subcarinal nodes (image 92) and ill- defined soft tissue in the right paratracheal position are i ndeterminate for metastatic disease. Mild central bronchial wall thickening i s compatible with an inflammatory or infectious process such as bronchitis or asthma. There are few 1-3 mm pulmonary micronodu les (for example left upper lobe series 5 image 28, right lower lobe image 167) that are indetermi rekha. These are too small to further characterize but metastatic malignancy cannot be excluded . Minimal apical scarring. Probable left renal cyst. Approximately 10 mm nodule in the left adrenal gland is indeterminate. Otherwise the visualized upper abdomen a ppears negative. IMPRESSION: 1. Negative for pulmonary embolism. 2. Large mass in the right hemithorax. 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 3. Right pleural effusion, hilar/mediast inal adenopathy, nodes in the right cardiophrenic angle several pulmonary micronodules and a lef t adrenal nodule are indeterminate for metastatic disease. Abril Villeda M.D. IMG CT PROCEDURES MR Brain without and with IV Contrast (06/05/2022 9:50 PM CDT) Anatomical Region Laterality Modality Head, Brain, Neuroradiology RST LOS, Neuroradiology ARZ N/A Magnetic Resonance LOS, Neuroradiology FLA LOS Specimen (Source) Anatomical Collection Method Collection Time Re ceived Time Location / / Volume Laterality 06/06/2022 8:49 AM CDT Impressions 06/06/2022 8:57 AM CDT Negative for intracranial metastatic dis ease. Narrative 06/06/2022 8:57 AM CDT EXAM: MR BRAIN WITHOUT AND WITH IV CONTRAST COMPARISON: None FINDINGS: Mild generalized cerebral and cerebellar parenchymal volume loss. Minimal leukoaraiosis supratentorially, moderate in the mid po ns. No diffusion restriction or abnormal contrast enhancement. No evidence for metastatic disease. Susceptibility weighted imaging is unremarkable. Mild mucosal thickening right greater th an left maxillary sinuses, and in a few bilateral ethmoid air cells, with a dependent fluid level in the right maxillary sinus. Mastoid air cells are clear. Procedure Note Shandra Kennedy M.D. - 06/06/2022Fo rmatting of this note might be different from the original. EXAM: MR BRAIN WITHOUT AND WITH IV CONTR AST COMPARISON: None FINDINGS: Mild generalized cerebral and cerebellar parenchymal volume loss. Minimal leukoaraiosis supratentorially, moderate in the mid po ns. No diffusion restriction or abnormal contrast enhancement. No evidence for metastatic disease. Susceptibility weighted imaging is unremarkable. Mild mucosal thickening right greater th an left maxillary sinuses, and in a few bilateral ethmoid air cells, with a dependent fluid level in the right maxillary sinus. Mastoid air cells are clear. IMPRESSION: Negative for intracranial metastatic dis ease. Mundo Hector M.D. IMG MRI PROCEDURES Pulmonary Function Tests (06/05/2022 12:13 PM CDT) Analysis Performed At Patho logist Time Signature VC MAX POST 2.82 L 06/05/2022 [facility] 5:55 PM CDT SUITE PostFVC 2.82 L 06/05/2022 [facility] 5:55 PM CDT SUITE PostFEV1 1.95 L 06/05/2022 [facility] 5:55 PM CDT SUITE FEV1/FVC POST 69.06 % 06/05/2022 [facility] 5:55 PM CDT SUITE FEF 25-75 % 1.13 L/s 06/05/2022 [facility] POST 5:55 PM CDT SUITE PEF POST 4.29 L/s 06/05/2022 [facility] 5:55 PM CDT SUITE FET POST 15.30 sec 06/05/2022 [facility] 5:55 PM CDT SUITE DLCO SINGLE 15.00 ml/(min*mm 06/05/2022 [facility] BREATH POST Hg) 5:55 PM CDT SUITE DLCOC SINGLE 14.82 ml/(min*mm 06/05/2022 [facility] BREATH POST Hg) 5:55 PM CDT SUITE HB 13.80 g(Hb)/dL 06/05/2022 [facility] 5:55 PM CDT SUITE VA SINGLE 4.21 L 06/05/2022 [facility] BREATH POST 5:55 PM CDT SUITE [id number] 98.00 % 06/05/2022 [facility] 5:55 PM CDT SUITE PulseRest 94.00 1/min 06/05/2022 [facility] 5:55 PM CDT SUITE [id number] 95.00 % 06/05/2022 [facility] 5:55 PM CDT SUITE PulseExer 106.00 1/min 06/05/2022 [facility] 5:55 PM CDT SUITE EXER TIME 3.00 min 06/05/2022 [facility] 5:55 PM CDT SUITE STEP HEIGHT 9.00 Inch 06/05/2022 [facility] PRE 5:55 PM CDT SUITE TLC 4.80 L 06/05/2022 [facility] 5:55 PM CDT SUITE VC PRE 2.79 L 06/05/2022 [facility] 5:55 PM CDT SUITE FRCPLETH 3.02 L 06/05/2022 [facility] PROVBASE 5:55 PM CDT SUITE RV 2.01 L 06/05/2022 [facility] 5:55 PM CDT SUITE RV % TLC PRE 41.90 % 06/05/2022 [facility] 5:55 PM CDT SUITE SR MID PRE 7.27 cmH2O*s 06/05/2022 [facility] 5:55 PM CDT SUITE VC MAX PRE 2.67 L 06/05/2022 [facility] 5:55 PM CDT SUITE FVC 2.67 L 06/05/2022 [facility] 5:55 PM CDT SUITE FEV1 1.79 L 06/05/2022 [facility] 5:55 PM CDT SUITE FEV1/FVC 67.10 % 06/05/2022 [facility] 5:55 PM CDT SUITE AMI71-41% 0.89 L/s 06/05/2022 [facility] 5:55 PM CDT SUITE PEF PRE 4.13 L/s 06/05/2022 [facility] 5:55 PM CDT SUITE FET PRE 15.05 sec 06/05/2022 [facility] 5:55 PM CDT SUITE SUBSTANCE POST Albuterol 06/05/2022 [facility] 5:55 PM CDT SUITE DOSE POST 2 Puff 06/05/2022 [facility] 5:55 PM CDT SUITE TLC% 83 % % 06/05/2022 [facility] 5:55 PM CDT SUITE % PRED RV 88 % % 06/05/2022 [facility] 5:55 PM CDT SUITE % PRED VC MAX 80 % % 06/05/2022 [facility] 5:55 PM CDT SUITE FVC% 80 % % 06/05/2022 [facility] 5:55 PM CDT SUITE FEV1% 70 % % 06/05/2022 [facility] 5:55 PM CDT SUITE % PRED 86 % % 06/05/2022 [facility] FEV1/FVC 5:55 PM CDT SUITE % PRED FEF 43 % % 06/05/2022 [facility] 25-75% 5:55 PM CDT SUITE % PRED PEF 68 % % 06/05/2022 [facility] 5:55 PM CDT SUITE PRED TLC 5.80 06/05/2022 [facility] 5:55 PM CDT SUITE PRED RV 2.27 06/05/2022 [facility] 5:55 PM CDT SUITE PRED VC MAX 3.33 06/05/2022 [facility] 5:55 PM CDT SUITE PRED FVC 3.33 06/05/2022 [facility] 5:55 PM CDT SUITE PRED FEV 1 2.56 06/05/2022 [facility] 5:55 PM CDT SUITE PRED FEV1/FVC 77.6 06/05/2022 [facility] 5:55 PM CDT SUITE PRED FEF 2.07 06/05/2022 [facility] 25-75% 5:55 PM CDT SUITE PRED PEF 6.1 06/05/2022 [facility] 5:55 PM CDT SUITE PRED DLCO 22.6 06/05/2022 [facility] 5:55 PM CDT SUITE PRED DLCOc 22.6 06/05/2022 [facility] 5:55 PM CDT SUITE Specimen (Source) Anatomical Collection Method Collection Time Re ceived Time Location / / Volume Laterality 06/05/2022 12:13 PM CDT Impressions [facility] - 06/05/2022 5:55 PM C DT Abnormal. FEV1 is mildly reduced in a nonspecific pattern, with a normal FEV1/FVC ratio, lung volumes, and airways resistance There is no immediate response to bronchodilator. Diffusing capacity (adjust ed for hemoglobin) is mildly reduced, co nsistent with a pulmonary parenchymal or vascular process. Oxygen saturation is normal at rest and during exercise. Narrative This result has an attachment that is no t available. Procedure Note Alen Marshall M.D. - 06/05/2022For matting of this note might be different from the original. IMPRESSION: Abnormal. FEV1 is mildly reduced in a no nspecific pattern, with a normal FEV1/FVC ratio, lung volumes, and airways resistance There is no immediate response to bronchodilator. Diffusing capacity (adjusted for hemoglobin) is mildly reduced, consistent with a pulmonary parenchymal or vascular process. Oxygen saturation is normal at rest and during exercise. Mundo Hector M.D. PFT ORDERABLES Performing Organization Address City/State/ZIP Code Phon e Number [facility] NA PET CT Skull to Thigh FDG (06/01/2022 12:14 PM CDT) Anatomical Region Laterality Modality Body, Nuclear Medicine PET RST LOS, N/A Posi edith Emission Tomography (PET), PET ARZ LOS, Nuclear Medicine PET FLA Po sitron Emission Tomography (PET) LOS, Nuclear Medicine Specimen (Source) Anatomical Collection Method Collection Time Re ceived Time Location / / Volume Laterality 06/01/2022 3:07 PM CDT Impressions 06/01/2022 3:56 PM CDT 1. Large right lung mass with mild to mo derate FDG uptake, suspicious for malignancy. Small right pleural effusion with mild FDG uptake, c oncerning for malignant pleural effusion. 2. Mild increased FDG uptake at the axia l skeleton, could be from anemia, reactive bone marrow changes, hematopoietic disorder Narrative 06/01/2022 3:56 PM CDT EXAM: ??PET CT SKULL TO THIGH FDG Serum glucose at time of F-18 FDG inject ion was 99 mg/dL. Patient followed standard dietary/fasting requirements for this exam. RADIOPHARMACEUTICAL/MEDS: Route: intravenous fludeoxyglucose F 18 injection SNF (FDG F-18),14.94 millicurie TECHNIQUE: ??F-18 FDG PET/CT scan was pe rformed from the orbits through the thighs with low dose, non-contrast, free-breathing CT images f or attenuation correction and anatomic localization (AC/AL), with imaging beginning at approximately 60 minutes after radiotracer injection. ?? COMPARISON: ??05/12/[address] INDICATION: ??Lung mass suspicious for m alignancy. ??Initial treatment strategy. The patient reports having received a va ccination in the left arm within the last two months. FINDINGS: About 15 x 9 cm large heteroge neous lobulated mass at the anterior portion of the right lung involving right upper lung and righ t middle lung with mild heterogeneous radiotracer uptake with maximum SUV of 4. Small right pleur al effusion with mild FDG uptake. ?? Mild increased FDG uptake at the axial s keleton. Focal FDG uptake at the moderately displ aced fracture deformity at the left posterior 8th rib, most likely posttraumatic, reactive/inflammat ory. Significant incidental findings on the n oncontrast CT: Layering fluid in the right maxillary sinus, consistent with maxillary sinusitis. Sca ttered vascular calcifications. Cholelithiasis. Mild atherosclerotic changes of abdominal aor ta and its branches. Scattered colonic diverticula. Procedure Note Claribel Reno M.D. - 06/01/2022Formatti ng of this note might be different from the original. EXAM: PET CT SKULL TO THIGH FDG Serum glucose at time of F-18 FDG inject ion was 99 mg/dL. Patient followed standard dietary/fasting requirements for this exam. RADIOPHARMACEUTICAL/MEDS: Route: intravenous fludeoxyglucose F 18 injection SNF (FDG F-18),14.94 millicurie TECHNIQUE: F-18 FDG PET/CT scan was perf ormed from the orbits through the thighs with low dose, non-contrast, free-breathing CT images f or attenuation correction and anatomic localization (AC/AL), with imaging beginning at approximately 60 minutes after radiotracer injection. COMPARISON: 05/12/[address] INDICATION: Lung mass suspicious for mal ignancy. Initial treatment strategy. The patient reports having received a va ccination in the left arm within the last two months. FINDINGS: About 15 x 9 cm large heteroge neous lobulated mass at the anterior portion of the right lung involving right upper lung and righ t middle lung with mild heterogeneous radiotracer uptake with maximum SUV of 4. Small right pleur al effusion with mild FDG uptake. Mild increased FDG uptake at the axial s keleton. Focal FDG uptake at the moderately displ aced fracture deformity at the left posterior 8th rib, most likely posttraumatic, reactive/inflammat ory. Significant incidental findings on the n oncontrast CT: Layering fluid in the right maxillary sinus, consistent with maxillary sinusitis. Sca ttered vascular calcifications. Cholelithiasis. Mild atherosclerotic changes of abdominal aor ta and its branches. Scattered colonic diverticula. IMPRESSION: 1. Large right lung mass with mild to mo derate FDG uptake, suspicious for malignancy. Small right pleural effusion with mild FDG uptake, c oncerning for malignant pleural effusion. 2. Mild increased FDG uptake at the axia l skeleton, could be from anemia, reactive bone marrow changes, hematopoietic disorder Mundo Hector M.D. IMG [place] PROCEDURES CBC with Differential, Blood (06/01/2022 12:12 PM CDT) P athologist Signature Hemoglobin 13.8 11.6 - 06/01/2022 DTL 15.0 g/dL 12:44 PM CDT Hematocrit 43.9 35.5 - 06/01/2022 DTL 44.9 % 12:44 PM CDT Erythrocytes 4.77 3.92 - 06/01/2022 DTL 5.13 12:44 PM CDT x10(12)/L MCV 92.0 78.2 - 06/01/2022 DTL 97.9 fL 12:44 PM CDT RBC Distrib Width 12.9 12.2 - 06/01/2022 DTL 16.1 % 12:44 PM CDT Platelet Count 318 157 - 371 06/01/2022 DTL x10(9)/L 12:44 PM CDT Leukocytes 7.3 3.4 - 9.6 06/01/2022 DTL x10(9)/L 12:44 PM CDT Neutrophils 4.45 1.56 - 06/01/2022 DTL 6.45 12:44 PM CDT x10(9)/L Lymphocytes 2.07 0.95 - 06/01/2022 DTL 3.07 12:44 PM CDT x10(9)/L Monocytes 0.73 0.26 - 06/01/2022 DTL 0.81 12:44 PM CDT x10(9)/L Eosinophils <0.03 0.03 - 06/01/2022 DTL 0.48 12:44 PM CDT x10(9)/L Basophils <0.03 0.01 - 06/01/2022 DTL 0.08 12:44 PM CDT x10(9)/L Specimen Anatomical Collection Method Collection Time Receive d Time (Source) Location / / Volume Laterality Blood (Blood, 06/01/2022 12:12 06/01/2022 Venous) PM CDT 12:36 PM CDT Mundo Hector M.D. LAB BLOOD ADD-ON Performing Organization Address City/State/ZIP Code Phon e Number [facility] - [address] [place] [address] [phone] [facility] [place] [address] [facility] [facility] [address] [facility] (ABNORMAL) Comprehensive Metabolic Panel (06/01/2022 12:12 PM CDT) athologist Signature Potassium, S 4.8 3.6 - 5.2 06/01/2022 DTL mmol/L 1:36 PM CDT Sodium, S 142 135 - 145 06/01/2022 DTL mmol/L 1:36 PM CDT Chloride, S 102 98 - 107 06/01/2022 DTL mmol/L 1:36 PM CDT Bicarbonate, S 31 (H) 22 - 29 06/01/2022 DTL mmol/L 1:36 PM CDT Anion Gap 9 7 - 15 06/01/2022 DTL 1:36 PM CDT BUN (Blood Urea 14 6 - 21 06/01/2022 DTL Nitrogen), S mg/dL 1:36 PM CDT Creatinine 0.76 0.59 - 06/01/2022 DTL 1.04 mg/dL 1:36 PM CDT Estimated GFR 85 >=60 06/01/2022 DTL (eGFR) mL/min/BSA 1:36 PM CDT Comment: Estimated GFR calculated using the 2020 CKD_EPI creatinine equation. Calcium, Total, S 9.5 8.8 - 10.2 mg/dL 06/01/2022 1:36 PM CDT DTL Glucose, S 96 70 - 140 mg/dL 06/01/2022 1:36 PM CDT D TL Protein, Total, S 5.6 (L) 6.3 - 7.9 g/dL 06/01/2022 1:36 P M CDT DTL Albumin, S 4.1 3.5 - 5.0 g/dL 06/01/2022 1:36 PM CDT D TL Aspartate Aminotransferase 25 8 - 43 U/L 06/01/2022 1 :36 PM CDT DTL (AST), S Alkaline Phosphatase, S 82 35 - 104 U/L 06/01/2022 1: 36 PM CDT DTL Alanine Aminotransferase 28 7 - 45 U/L 06/01/2022 1:3 6 PM CDT DTL (ALT), S Bilirubin, Total, S 0.4 <=1.2 mg/dL 06/01/2022 1:36 PM CDT DTL Specimen Anatomical Collection Method Collection Time Receive d Time (Source) Location / / Volume Laterality Blood (Blood, 06/01/2022 12:12 06/01/2022 Venous) PM CDT 12:55 PM CDT Mundo Hector M.D. LAB BLOOD ADD-ON Performing Organization Address City/State/ZIP Code Phon e Number [facility] - [address] [place], [place] [address] [facility] [place] [address] [facility] [address] ANGIO CHEST PE PROTOCOL-Outside CT Body (05/12/2022 4:50 PM CDT) Specimen (Source) Anatomical Location Collection Method / Collectio n Time Received Time / Laterality Volume Narrative IIMS - 05/15/2022 11:21 AM CDT This order has been created and auto-finalized to support the import of outside images. If available, original i nterpretation can be found on the Media Tab in Chart Review, in Document V iewer, or as an image in QREADS. If a re-interpretation or overread is re quired please follow defined workflow. ?? Provider Not In System IMG CT PROCEDURES Performing Organization Address [facility]/ZIP Code Phon e Number IIMS IIMS NA XR CHEST 2V-Outside Chest Xray (05/12/2022 3:40 PM CDT) Specimen (Source) Anatomical Location Collection Method / Collectio n Time Received Time / Laterality Volume Narrative IIMS - 05/15/2022 11:12 AM CDT This order has been created and auto-finalized to support the import of outside images. If available, original i nterpretation can be found on the Media Tab in Chart Review, in Document V iewer, or as an image in QREADS. If a re-interpretation or overread is re quired please follow defined workflow. ?? Provider Not In System IMG DIAGNOSTIC IMAGING PROCE DURES Performing Organization Address City/[facility]/ZIP Code Phon e Number IIMS IIMS NA from Last 3 Months Insurance Payer Benefit Plan / Subscriber ID Effective Dates Phone Addre ss Type Group [employer] ARE FOR [id number] 2019-Present [phone] [address] [place] [address] Care Teams Salesperson Automobiles Relationship Specialty Start Date End Date Elsewhere, Pcp PCP - General Family Medicine 01/03/18
--- OUTSIDE RECORDS SUMMARY | 2022-06-11 13:10 | XMS_ITS | Encounter Summary ---
:1950 Author Organization [facility] Address [address] [place] [address] Care Team Providers Name Role Phone Elsewhere, Pcp Primary Care Provider Unavailable Reason for Visit MRI/CAT/PET Scan (Routine) - Closed Specialty Diagnoses / Procedures Referred By Contact Refer red To Contact Radiology Diagnoses Mass Lung Mundo Hector M.D. [facility] Procedures MR Brain without and with IV Contrast MR Brain with IV Contrast [place] MRI BRAIN W [facility] [address] [place] [address] Referral ID Status Reason Start Date Expiration Date Visits Requ ested Visits Authorized [id number] Closed 05/16/2022 05/16/2023 1 1 Encounter Details Date Type Department Care Team Description 06/05/2022 Hospital Encounter Department of Radiology, Rupinder Hector, Mass Lung beto Middleton M.D. [place], [place] [address] [facility] [address] [place] [phone] Social History Tobacco Use Types Packs/Day Years [...] 06/04/2022 relatives? How often do you attend catholic or quaker Never 06/04/2022 services? Do you belong to any clubs or organizations such as No 06/04/2022 catholic groups, unions, fraternal or athletic groups, or [...] place to sleep or slept in a fpc (including now)? Education Answer Date Recorded What is the highest level of school Master's degree (e.g., M A, MS, 06/04/2022 you have completed or the highest Milly, MEd, ASSISTANT CHIEF ENGINEER, MADELYN) degree you have received? Sex Assigned at Date Recorded Female 06/04/2022 4:58 PM CDT documented as of this encounter Medications at Time of Discharge Medication Sig Dispensed Refills Start Date End Date estradiol (ESTRACE) 1 mg Take 1 mg by mouth 3 tablet daily. Guaiatussin AC 10-100 mg/5 TAKE 5-10 ML BY MOUTH 0 05/17/2022 mL liquid THREE TIMES DAILY NEEDED FOR COUGH. documented as of this encounter Plan of Treatment Upcoming Encounters Date Type Specialty Care Team Description 07/12/2022 Appointment Radiology López Doran M .D. [address] [place] [phone] (Wo rk) documented as of this encounter Procedures Procedure Name Priority Date/Time Associated Comments Diagnosis MR BRAIN WITHOUT RAD - Routine 06/05/2022 9:50 Mass Lung Results for this AND WITH IV (most inpatients PM CDT procedure a re in CONTRAST and all the results outpatients) section. documented in this encounter Results MR Brain without and with IV Contrast [...] intracranial metastatic dis ease. Mundo Hector M.D. [facility] MRI PROCEDURES documented in this encounter Visit Diagnoses Diagnosis Mass Lung documented in this encounter Administered Medications Inactive Administered Medications - up to 3 most recent administrations Medication Order MAR Action Action Date Dose Rate Site gadobutrol injection 0.01-30 mL Given 06/05/2022 9:37 PM CDT 10 mL (GADAVIST) 0.01-30 mL, intravenous, Once in imaging, contrast, Starting on Sat06/05/22 at 2102, For 1 dose, Imaging Protocol Orders, Dose per Radiant Medication Guidelines Intrathecal doses greater than 0.25 mL not recommended. documented in this encounter Care Teams Breakfast Attendant Relationship Specialty Start Date End Date Elsewhere, Pcp PCP - General Family Medicine 01/03/18 documented as of this encounter
--- OUTSIDE RECORDS SUMMARY | 2022-06-11 13:10 | XMS_ITS | Encounter Summary ---
:1950 Author Organization [facility] Address [address] [place] [address] Care Team Providers Name Role Phone Elsewhere, Pcp Primary Care Provider Unavailable Encounter Details Date Type Department Care Team Description 06/01/2022 Clinical Communication Visit Review in [place], [place] [address] [place] [address] Social History Tobacco Use Types Packs/Day Years [...] How often do you attend catholic or anabaptist Never 06/04/2022 services? Do you belong to [...] place to sleep or slept in a residential (including now)? Sex Assigned at Date Recorded Female 06/04/2022 4:58 PM CDT documented as of this encounter Plan of Treatment Upcoming Encounters Date Type Specialty Care Team Description 07/12/2022 Appointment Radiology López Doran M .D. [address] [place], [place] [phone] (Wo rk) documented as of this encounter Visit Diagnoses Not on filedocumented in this encounter Care Teams Chief Unit Forester Relationship Specialty Start Date End Date Elsewhere, Pcp PCP - General Family Medicine 01/03/18 documented as of this encounter
--- OUTSIDE RECORDS SUMMARY | 2022-06-11 13:10 | XMS_ITS | Encounter Summary ---
:1950 Author Organization [facility] Address [address] [place] [address] Care Team Providers Name Role Phone Elsewhere, Pcp Primary Care Provider Unavailable Reason for Referral MRI/CAT/PET Scan (Routine) - Closed Specialty Diagnoses / Procedures Referred By Contact Refer red To Contact Diagnoses Mass Lung Mundo Hector M.D. [facility] Procedures PET CT Skull to Thigh FDG [place] PET/CT TRUNK [address] [place] [address] Referral ID Status Reason Start Date Expiration Date Visits Requ ested Visits Authorized [id number] Closed 05/16/2022 05/16/2023 1 1 Encounter Details Date Type Department Care Team Description 05/16/2022 Documentation Division of Pulmonary Rupinder Hector M.D. Medicine in [place], [address] [place] [address] [place] [phone] [place] [address] [phone] Social History Tobacco Use Types Packs/Day Years [...] 06/04/2022 relatives? How often do you attend mandaen or episcopalian Never 06/04/2022 services? Do you belong to any clubs or organizations such as No 06/04/2022 mandaen groups, unions, fraternal or athletic groups, or [...] place to sleep or slept in a nursing home (including now)? Sex Assigned at Date Recorded Female 06/04/2022 4:58 PM CDT documented as of this encounter Progress Notes Mundo Hector M.D. - 05/16/2022 11:51 AM CDT Triage note 71-year-old woman with unknown smoking status. Outside imaging demonstrates a large right mid lung mass. There is also right-sided pleural effusion and mediastinal lymphadenopathy. This is highly suspicious for malignancy. Plan is to bring the patient in for a visit. We should pre schedule a PET-CT, MRI of the brain, blood work and PFTs. documented in this encounter Plan of Treatment Upcoming Encounters Date Type Specialty Care Team Description 07/12/2022 Appointment Radiology López Doran M .D. [address] [place], [place] [phone] (Wo rk) documented as of this encounter Results Pulmonary Function Tests (06/05/2022 12:13 PM CDT) Analysis Performed At Patho logist Time Signature VC MAX POST 2.82 L 06/05/2022 [facility] 5:55 PM CDT SUITE PostFVC 2.82 L 06/05/2022 [facility] 5:55 PM CDT SUITE PostFEV1 1.95 L 06/05/2022 [facility] SUITE FEV1/FVC POST 69.06 % 06/05/2022 [facility] 5:55 PM CDT SUITE FEF 25-75 % 1.13 L/s 06/05/2022 [facility] POST 5:55 PM CDT SUITE PEF POST 4.29 L/s 06/05/2022 [facility] 5:55 PM CDT SUITE FET POST 15.30 sec 06/05/2022 [facility] 5:55 PM CDT SUITE DLCO SINGLE 15.00 ml/(min*mm 06/05/2022 [facility] BREATH POST Hg) 5:55 PM CDT SUITE DLCOC SINGLE 14.82 ml/(min*mm 06/05/2022 [facility] BREATH POST Hg) 5:55 PM CDT SUITE HB 13.80 g(Hb)/dL 06/05/2022 [facility] 5:55 PM [address] VA SINGLE 4.21 L 06/05/2022 [facility] BREATH POST 5:55 PM CDT SUITE Q6VaxWvdl 98.00 % 06/05/2022 [facility] 5:55 PM CDT SUITE PulseRest 94.00 1/min 06/05/2022 [facility] 5:55 PM CDT SUITE F5NqlXnou 95.00 % 06/05/2022 [facility] 5:55 PM CDT SUITE PulseExer 106.00 1/min 06/05/2022 [facility] 5:55 PM CDT SUITE EXER TIME 3.00 min 06/05/2022 [facility] 5:55 PM CDT SUITE STEP HEIGHT 9.00 Inch 06/05/2022 [facility] PRE 5:55 PM CDT SUITE TLC 4.80 L 06/05/2022 [facility] 5:55 PM CDT SUITE VC PRE 2.79 L 06/05/2022 [facility] 5:55 PM CDT SUITE FRCPLETH 3.02 L 06/05/2022 [facility] PROVBASE 5:55 PM CDT SUITE RV 2.01 L 06/05/2022 [facility] 5:55 PM CDT SUITE RV % TLC PRE 41.90 % 06/05/2022 [facility] 5:55 PM CDT SUITE SR MID PRE 7.27 cmH2O*s 06/05/2022 [facility] 5:55 PM CDT SUITE VC MAX PRE 2.67 L 06/05/2022 [facility] 5:55 PM CDT SUITE FVC 2.67 L 06/05/2022 [facility] 5:55 PM CDT SUITE FEV1 1.79 L 06/05/2022 [facility] 5:55 PM CDT SUITE FEV1/FVC 67.10 % 06/05/2022 [facility] 5:55 PM CDT SUITE UQE41-55% 0.89 L/s 06/05/2022 [facility] 5:55 PM CDT SUITE PEF PRE 4.13 L/s 06/05/2022 [facility] 5:55 PM CDT SUITE FET PRE 15.05 sec 06/05/2022 [facility] 5:55 PM CDT SUITE SUBSTANCE POST Albuterol 06/05/2022 [facility] 5:55 PM CDT SUITE DOSE POST 2 Puff 06/05/2022 [facility] 5:55 PM CDT SUITE TLC% 83 % % 06/05/2022 [facility] 5:55 PM CDT SUITE % PRED RV 88 % % 06/05/2022 [facility] 5:55 PM CDT SUITE % PRED VC MAX 80 % % 06/05/2022 [facility] 5:55 PM CDT SUITE FVC% 80 % % 06/05/2022 [facility] 5:55 PM CDT SUITE FEV1% 70 % % 06/05/2022 [facility] 5:55 PM CDT SUITE % PRED 86 % % 06/05/2022 [facility] FEV1/FVC 5:55 PM CDT SUITE % PRED FEF 43 % % 06/05/2022 [facility] 25-75% 5:55 PM CDT SUITE % PRED PEF 68 % % 06/05/2022 [facility] 5:55 PM CDT SUITE PRED TLC 5.80 06/05/2022 [facility] 5:55 PM CDT SUITE PRED RV 2.27 06/05/2022 [facility] 5:55 PM CDT SUITE PRED VC MAX 3.33 06/05/2022 [facility] 5:55 PM CDT SUITE PRED FVC 3.33 06/05/2022 [facility] 5:55 PM CDT SUITE PRED FEV 1 2.56 06/05/2022 [facility] 5:55 PM CDT SUITE PRED FEV1/FVC 77.6 06/05/2022 [facility] 5:55 PM CDT SUITE PRED FEF 2.07 06/05/2022 [facility] 25-75% 5:55 PM CDT SUITE PRED PEF 6.1 06/05/2022 [facility] 5:55 PM [address]T [address] PRED DLCO 22.6 06/05/2022 [facility] 5:55 PM CDT SU[address] PRED DLCOc 22.6 06/05/2022 [facility] 5:55 PM CDT SUITE Specimen (Source) Anatomical Collection Method Collection Time Re ceived Time Location / / Volume Laterality 06/05/2022 12:13 PM CDT Impressions [facility] - 06/05/2022 5:55 PM C DT Abnormal. [...] Organization Address City/State/ZIP Code Phon e Number [facility] NA PET CT Skull to Thigh [...] RADIOPHARMACEUTICAL/MEDS: Route: intravenous fludeoxyglucose F 18 injection FCI (FDG F-18),14.94 millicurie TECHNIQUE: ??F-18 FDG PET/CT [...] RADIOPHARMACEUTICAL/MEDS: Route: intravenous fludeoxyglucose F 18 injection FCI (FDG F-18),14.94 millicurie TECHNIQUE: F-18 FDG PET/CT [...] reactive bone marrow changes, hematopoietic disorder Mundo MALING NM PROCEDURES (ABNORMAL) Comprehensive Metabolic Panel (06/01/2022 12:12 PM CDT) P athologist Signature Potassium, S 4.8 3.6 - [...] Organization Address City/State/ZIP Code Phon e Number [facility] - [address] [place], [place] [address] [facility] [place] [address] [facility] [place] 200 [facility] CBC with Differential, Blood (06/01/2022 12:12 PM [...] Organization Address City/State/ZIP Code Phon e Number [facility] - [address] [place], [place] [address] [facility] [place] [address] [facility] [place] [address] documented in this encounter Visit Diagnoses Diagnosis Mass Lung - Primary Mass Lung documented in this encounter Care Teams Wringer Machine Operator Relationship Specialty Start Date End Date Elsewhere, Pcp PCP - General Family Medicine 01/03/18 documented as of this encounter
--- OUTSIDE RECORDS SUMMARY | 2022-06-11 13:10 | XMS_ITS | Encounter Summary ---
:1950 Author Organization [facility] Address [address] [place] [address] Care Team Providers Name Role Phone Elsewhere, Pcp Primary Care Provider Unavailable Reason for Referral MRI/CAT/PET Scan (Routine) - Pending Review Specialty Diagnoses / Procedures Referred By Contact Refer red To Contact Radiology Diagnoses Thymoma López Doran M.D. [facility] Procedures MR Chest without and with IV Contrast [address] [place] [address] Referral ID Status Reason Start Date Expiration Date Visits V isits Requested Authorized [id number] Pending 06/06/2022 06/06/2023 1 1 Review Reason for Visit Outpatient (Routine) - Closed Specialty Diagnoses / Procedures Referred By Contact Refer red To Contact Pulmonary Medicine Diagnoses Other Nonspecific Abnormal Finding Of Lung [facility] Aury Estevez, Shilpa [facility] Clara Floyd [address] [place] [address] Referral ID Status Reason Start Date Expiration Date Visits Requ ested Visits Authorized [id number] Closed 05/15/2022 05/15/2023 1 1 Encounter Details Date Type Department Care Team Description 06/06/2022 Comprehensive Visit Division of López Doran Thymom a (Primary Dx); Pulmonary Medicine M.DYesika Mass Lung; in [place], [address] [facility] Other Nonspecific Abnormal Finding Of Rita ng Field [place], [place] [address] [place] [address] [place], [place] [phone] (Work) [phone] Social History Tobacco Use Types Packs/Day Years [...] 06/04/2022 relatives? How often do you attend taoist or mandaeism Never 06/04/2022 services? Do you belong to any clubs or organizations such as No 06/04/2022 taoist groups, unions, fraternal or athletic groups, or [...] place to sleep or slept in a usp (including now)? Education Answer Date Recorded What is the highest level of school Master's degree (e.g., M A, MS, 06/04/2022 you have completed or the highest Milly, MEd, CRIME PREVENTION WORKER, MADELYN) degree you have received? Sex Assigned at Date Recorded Female 06/04/2022 4:58 PM CDT documented as of this encounter Last Filed Vital Signs Vital Sign Reading [...] Mass Index 22.53 06/06/2022 2:40 PM CDT documented in this encounter Consult Notes Abril Villeda M.D. - 06/06/2022 3:00 PM CDT SUBJECTIVE CHIEF COMPLAINT/REASON FOR VISIT Lung mass This is a supervisory note for Dr. Doran. I have personally seen and evaluated Ms. Phillips. I have reviewed the pertinent laboratory data, radiographic images, and clinical notes. I have reviewed the history, physical examination, impression, report, and plan with Dr. Doran and agree with the documentation outlined in his note from today's date. The patient had an x-ray in April of 2022, which showed findings concerning for a large mass. CTof the chest was obtained and confirmed that the patient did indeed have a large 15 x 9 cm heterogeneous lobulated mass. PET scan revealed heterogeneous uptake with an SUV maximum of 4 and a small right pleural effusion with mild FDG uptake. There was some focal FDG uptake near a moderately displaced fracture of the left posterior 8th rib, which was felt to likely be posttraumatic inflammation. ASSESSMENT / PLAN Ms. Alexia Phillips is a 71 y.o. female who presents for evaluation of a lung mass. 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 If there are in-tact planes around the mass, then we can refer the patient for surgical excision. Remainder of the plan of care is as outlined in Dr. Doran's note from today's date. Abril Villeda MD Carbon Capture Power Plant Engineer [employer] Joiner Pulmonary/Sleep Medicine #[id number] López Doran M.D. - 06/06/2022 3:00 PM CDT SUBJECTIVE PULMONARY MEDICINE CONSULT NOTE REFERRED BY: Aury Estevez M.D. CHIEF COMPLAINT/REASON FOR VISIT Thoracic mass HISTORY OF PRESENT ILLNESS Ms. Alexia Phillips is a 71-year-old female from [place], [place], with medical comorbidities including osteoporosis, depression, and anxiety, who has been referred to Pulmonary Clinic for evaluation of a right-sided lung mass. Patient presented to the emergency department on 05/03/2022 after experiencing a 3-day history of progressive shortness of breath. This is in the setting of many months of cough, rhinorrhea, and frequent oral mouth sores. CT chest was obtained noting a large right sided heterogenous mass measuring 16 x 9 x 14.5 cm. It was recommended she follow up at [facility] for further cares. Today, patient states her shortness of breath has improved after a course of doxycycline. She otherwise confirms the history as listed above. She has no history of pulmonary issues. She is a lifetime nonsmoker. She remains very active, walking on her treadmill for 30 minutes per day along with stretching, sit ups, and pushups. Family history of malignancy includes father (bladder) and mother (lung). The following portions of the patient's history were reviewed and updated as appropriate: allergies,current medications, family history, medical history, social history, surgical history and problem list. REVIEW OF SYSTEMS All systems were reviewed and negative or non-contributory outside of items mentioned in the HPI. VITAL SIGNS Temperature: 35.4 ??C Blood Pressure: 146/78 SpO2: 97 % Height: 174 cm Weight: 68.2 kg BMI (Calculated): 22.5 kg/m?? OBJECTIVE PHYSICAL EXAMINATION General: female, resting comfortably on the exam table, no acute distress HEENT: Moist mucous membranes, no oral lesions. Cardiac: Regular rate and rhythm, no murmurs/rubs/gallops. Respiratory: Lungs clear to auscultation bilaterally, no wheezing/rhonchi/rales. Extremities: No peripheral edema, peripheral pulses intact. Skin: No rashes or lesions noted. Neuro: No focal motor or sensory deficits appreciated DIAGNOSTIC REVIEW I have reviewed the patient's current laboratory, imaging, and other diagnostic studies. PFTs (06/06/22): FEV1 is mildly reduced in a nonspecific pattern, with a normal FEV1/FVC ratio, lungvolumes, and airways resistance There is no immediate response to bronchodilator. Diffusing capacity(adjusted for hemoglobin) is mildly reduced, consistent with a pulmonary parenchymal or vascular process. Oxygen saturation is normal at rest and during exercise. PET-CT (06/01/22): Large right lung mass with mild to moderate FDG uptake, suspicious for malignancy. Small right pleural effusion with mild FDG uptake, concerning for malignant pleural effusion. MRI brain (06/06/22): Negative for intracranial metastatic disease. 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 Phillips is here for evaluation of large right-sided chest mass. We have reviewed her imaging in depth. The mass appears to originate from the anterior mediastinum and is radiographically consistent with a thymoma. A primary pulmonary malignancy is much less likely. We discussed her case at tumor board. The recommendation of the group was that this would likely be amenable to surgical resection. A biopsy is not needed. Prior to surgery, an MRI of the chest would be helpful to distinguish that planes between the mass and aorta, pericardium, chest wall, etc for surgical planning. Order has beenplaced. I will follow-up with the patient by phone after imaging. Patient seen and evaluated with supervising loss control consultant, Dr. Villeda. PATIENT EDUCATION Ready to learn, no apparent learning barriers were identified; learning preferences include listening. Explained diagnosis and treatment plan; patient expressed understanding of the content. ADMINISTRATIVE BILLING I personally spent over half of a total 45 minutes face to face with the patient in counseling and discussion and/or coordination of care as described above. López Doran M.D. Pulmonary and Critical Care Medicine, [id number] [phone] 06/06/22 documented in this encounter Plan of Treatment Upcoming Encounters Date Type Specialty Care Team Description 07/12/2022 Appointment Radiology López Doran M .D. [address] [place] [phone] (Wo rk) Scheduled Orders Name Type Priority Associated Diagnoses Order S chedule MR Chest without Imaging RAD - Routine (most Thymoma Expe cted: and with IV inpatients and all 2 Contrast outpatients) (Approximate), Expires: 09/06/2023 documented as of this encounter Results Interpretation of Outside CT Chest (06/06/2022 [...] disease. Abril Villeda M.D. IMG CT PROCEDURES documented in this encounter Visit Diagnoses Diagnosis Thymoma - Primary Mass Lung Other Nonspecific Abnormal Finding Of Rita ng Field Mass Lung documented in this encounter Care Teams Ballast Inspector Relationship Specialty Start Date End Date Elsewhere, Pcp PCP - General Family Medicine 01/03/18 documented as of this encounter
--- OUTSIDE RECORDS SUMMARY | 2022-06-11 13:10 | XMS_ITS | Encounter Summary ---
:1950 Author Organization [facility] Address [address] [place] [address] Care Team Providers Name Role Phone Elsewhere, Pcp Primary Care Provider Unavailable Encounter Details Date Type Department Care Team Description 06/06/2022 Ancillary Procedure Department of Radiology Cara yusuf, [facility] in [facility] tyrel Simons M.D. [address] [facility] [address] [place] [address] [place] [address] Social History Tobacco Use Types Packs/Day Years Used Date Smoking Tobacco: Never Smokeless Tobacco: Never Alcohol Habits Answer Date Recorded How often [...] 06/04/2022 relatives? How often do you attend restorationism or christian Never 06/04/2022 services? Do you belong to any clubs or organizations such as No 06/04/2022 restorationism groups, unions, fraternal or athletic groups, or [...] place to sleep or slept in a [facility] (including now)? Education Answer Date Recorded What is the highest level of school Master's degree (e.g., M A, MS, 06/04/2022 you have completed or the highest Milly, MEd, TURNING MACHINE OPERATOR, MADELYN) degree you have received? Sex Assigned at Date Recorded Female 06/04/2022 4:58 PM CDT documented as of this encounter Plan of Treatment Upcoming Encounters Date Type Specialty Care Team Description 07/12/2022 Appointment Radiology López Doran M .D. [address] [place], [place] [phone] (Wo rk) documented as of this encounter Procedures Procedure Name Priority Date/Time Associated Comments Diagnosis INTERPRETATION OF RAD - Routine 06/06/2022 8:52 [facility] Result s for OUTSIDE CT CHEST (most inpatients AM CDT this pr ocedure and all are in the outpatients) results section. documented in this encounter Results Interpretation of Outside CT [...] nodule are indeterminate for metastatic disease. Abril MURDOCK CT PROCEDURES documented in this encounter Visit Diagnoses Diagnosis [facility] documented in this encounter Care Teams Java Android Developer Relationship Specialty Start Date End Date Elsewhere, Pcp PCP - General Family Medicine 01/03/18 documented as of this encounter
--- OUTSIDE RECORDS SUMMARY | 2022-06-11 13:10 | XMS_ITS | Encounter Summary ---
:1950 Author Organization [facility] Address [address] [place] [address] Care Team Providers Name Role Phone Elsewhere, Pcp Primary Care Provider Unavailable Encounter Details Date Type Department Care Team Description 06/09/2018 Ancillary Procedure Department of Dermatology Social History Tobacco Use Types Packs/Day Years [...] 06/04/2022 relatives? How often do you attend pentecostalism or congregation Never 06/04/2022 services? Do you belong to any clubs or organizations such as No 06/04/2022 pentecostalism groups, unions, fraternal or athletic groups, or [...] place to sleep or slept in a [place] [facility] [place] (including now)? Sex Assigned at Date Recorded Female 06/04/2022 4:58 PM CDT documented as of this encounter Plan of Treatment Upcoming Encounters Date Type Specialty Care Team Description 07/12/2022 Appointment Radiology López Doran M .D. [address] [place] [phone] (Wo rk) documented as of this encounter Procedures Procedure Name Priority Date/Time Associated Comments Diagnosis DERMATOLOGY IMAGE Routine 06/09/2018 3:15 PM Resu lts for this EXAM CDT procedure are i n the results section. documented in this encounter Results DERMATOLOGY IMAGE EXAM (06/09/2018 3:15 PM CDT) Specimen (Source) Anatomical Collection Method Collection Time Re ceived Time Location / / Volume Laterality 06/09/2018 3:15 PM CDT Narrative [facility] - 06/09/2018 3:17 PM CDT This order has been created and auto-finalized to support the import of images acquired without order. The clini georgette documentation to support these images can be found on the encounter reyes t produced images. Provider Not In System IMG NON RAD IMAGING PROCEDUR ES Performing Organization Address City/State/ZIP Code Phon e Number [facility] NA documented in this encounter Visit Diagnoses Not on filedocumented in this encounter Care Teams Brim Shaper Relationship Specialty Start Date End Date Elsewhere, Pcp PCP - General Family Medicine 01/03/18 documented as of this encounter
--- OUTSIDE RECORDS SUMMARY | 2022-06-11 13:10 | XMS_ITS | Encounter Summary ---
:1950 Author Organization [facility] Address [address] [place] [address] Care Team Providers Name Role Phone Elsewhere, Pcp Primary Care Provider Unavailable Encounter Details Date Type Department Care Team Description 06/09/2018 Orders Only Department of Dermatology in [facility] tyrel Carias, [place] [address] [place], [place] [phone] [place], [place] [phone] Social History Tobacco Use Types Packs/Day Years [...] 06/04/2022 relatives? How often do you attend muslim or temple Never 06/04/2022 services? Do you belong to any clubs or organizations such as No 06/04/2022 muslim groups, unions, fraternal or athletic groups, or [...] place to sleep or slept in a alf (including now)? Sex Assigned at Date Recorded Female 06/04/2022 4:58 PM CDT documented as of this encounter Plan of Treatment Upcoming Encounters Date Type Specialty Care Team Description 07/12/2022 Appointment Radiology López Doran M .D. [address] [place], [place] [phone] (Wo rk) documented as of this encounter Visit Diagnoses Not on filedocumented in this encounter Care Teams Guyline Operator Relationship Specialty Start Date End Date Elsewhere, Pcp PCP - General Family Medicine 01/03/18 documented as of this encounter
--- OUTSIDE RECORDS SUMMARY | 2022-06-11 13:10 | XMS_ITS | Encounter Summary ---
:1950 Author Organization [facility] Address [address] [place] [address] Care Team Providers Name Role Phone Elsewhere, Pcp Primary Care Provider Unavailable Encounter Details Date Type Department Care Team Description 06/01/2022 Hospital Encounter Department of Laboratory Rupinder Hector, [facility] Lung Medicine and Pathology, [facility], in [address] [place], [place] [address] [place] [phone] [place] [address] [phone] Social History Tobacco Use Types Packs/Day Years [...] 06/04/2022 relatives? How often do you attend bahai or holiness Never 06/04/2022 services? Do you belong to any clubs or organizations such as No 06/04/2022 bahai groups, unions, fraternal or athletic groups, or [...] place to sleep or slept in a long term (including now)? Sex Assigned at Date Recorded Female 06/04/2022 4:58 PM CDT documented as of this encounter Medications at Time of Discharge Medication Sig Dispensed Refills Start Date End Date estradiol (ESTRACE) 1 mg Take 1 mg by mouth 3 tablet daily. Guaiatussin AC 10-100 TAKE 5-10 ML BY MOUTH 0 mg/5 mL liquid THREE TIMES DAILY NEEDED FOR COUGH. albuterol 90 INHALE 2 PUFFS EVERY 0 05/15/2022 mcg/actuation inhaler 4-6 HOURS NEEDED FOR SHORTNESS OF BREATH OR WHEEZING. alendronate (FOSAMAX) 70 Take 70 mg by mouth 11 06/05/2022 mg tablet once a week. doxycycline monohydrate Take 100 mg by mouth 0 06/05/2022 (MONODOX) 100 mg capsule 2 (two) times a day. FLUoxetine (PROzac) 10 Take 10 mg by mouth. 0 06/201106/05/2022 mg capsule FLUoxetine (PROzac) 20 Take by mouth daily. 3 08/201706/05/2022 mg capsule documented as of this encounter Plan of Treatment Upcoming Encounters Date Type Specialty Care Team Description 07/12/2022 Appointment Radiology López Doran M .D. [address] [place] [phone] (Wo rk) documented as of this encounter Procedures Procedure Name Priority Date/Time Associated Comments Diagnosis CBC WITH DIFFERENTIAL, Routine 06/01/2022 12:12 [facility] R esults for this B PM CDT procedure are i n the results section. COMPREHENSIVE Routine 06/01/2022 12:12 [facility] Results fo r this METABOLIC PANEL, S/P PM CDT procedu re are in the results section. documented in this encounter Results (ABNORMAL) Comprehensive Metabolic Panel (06/01/2022 12:12 PM [...] Organization Address City/State/ZIP Code Phon e Number [facility] - [address] [place] [phone] [place] [address] [facility] 200 [facility] CBC with Differential, Blood (06/01/2022 12:12 PM [...] Organization Address City/State/ZIP Code Phon e Number [facility] - [address] [place], [place] [address] [place] [address] [facility] [address] documented in this encounter Visit Diagnoses Diagnosis [facility] documented in this encounter Care Teams Signal Worker Relationship Specialty Start Date End Date Elsewhere, Pcp PCP - General Family Medicine 01/03/18 documented as of this encounter
--- OUTSIDE RECORDS SUMMARY | 2022-06-11 13:10 | XMS_ITS | Encounter Summary ---
:1950 Author Organization [facility] Address [address] [place] [address] Care Team Providers Name Role Phone Elsewhere, Pcp Primary Care Provider Unavailable Reason for Referral MRI/CAT/PET Scan (Routine) - Closed Specialty Diagnoses / Procedures Referred By Contact Refer red To Contact Diagnoses [facility] Mundo Hector M.D. [facility] Procedures PET CT Skull to Thigh FDG NC PET/CT TRUNK [address] [place] [address] Referral ID Status Reason Start Date Expiration Date Visits Requ ested Visits Authorized [id number] Closed 05/16/2022 05/16/2023 1 1 Reason for Visit MRI/CAT/PET Scan (Routine) - Closed Specialty Diagnoses / Procedures Referred By Contact Refer red To Contact Diagnoses [facility] Mundo Hector M.D. [facility] Procedures PET CT Skull to Thigh FDG NC PET/CT TRUNK [address] [place] [address] Referral ID Status Reason Start Date Expiration Date Visits Requ ested Visits Authorized [id number] Closed 05/16/2022 05/16/2023 1 1 Encounter Details Date Type Department Care Team Description 06/01/2022 Hospital Encounter Department of Radiology, Rupinder Hector, beto Gonzalez M.D. [place], [place] 200 [facility] [address] [place] [phone] Social History Tobacco Use Types Packs/Day Years [...] 06/04/2022 relatives? How often do you attend restorationist or episcopalian Never 06/04/2022 services? Do you belong to any clubs or organizations such as No 06/04/2022 restorationist groups, unions, fraternal or athletic groups, or [...] place to sleep or slept in a correction (including now)? Sex Assigned at Date Recorded [...] Radiology López Doran M .D. [address] [place] [phone] (Wo rk) documented as of this encounter Procedures Procedure Name Priority Date/Time Associated Comments Diagnosis PET CT SKULL TO RAD - Routine 06/01/2022 12:14 [facility] Results for this THIGH (most inpatients PM CDT procedure a re in and all the results outpatients) section. documented in this encounter Results PET CT Skull to Thigh FDG (06/01/2022 [...] RADIOPHARMACEUTICAL/MEDS: Route: intravenous fludeoxyglucose F 18 injection LONG-TERM (FDG F-18),14.94 millicurie TECHNIQUE: ??F-18 FDG PET/CT [...] RADIOPHARMACEUTICAL/MEDS: Route: intravenous fludeoxyglucose F 18 injection LONG-TERM (FDG F-18),14.94 millicurie TECHNIQUE: F-18 FDG PET/CT [...] changes, hematopoietic disorder Mundo Hector M.D. IMG [facility] PROCEDURES documented in this encounter Visit Diagnoses Diagnosis [facility] documented in this encounter Administered Medications Inactive Administered Medications - up to 3 most recent administrations Medication Order MAR Action Action Date Dose Rate Site fludeoxyglucose F 18 Given 06/01/2022 10:26 14.94 millicuries injection LONG-TERM (FDG F-18) AM CDT 4.5-16.5 millicurie, intravenous, Once, On Sat06/01/22 at 1030, For 1 dose, Imaging Protocol Orders documented in this encounter Care Teams Assembling Fabricator Relationship Specialty Start Date End Date Elsewhere, Pcp PCP - General Family Medicine 01/03/18 documented as of this encounter
--- OUTSIDE RECORDS SUMMARY | 2022-06-11 13:11 | XMS_ITS | Clinical Summary ---
:1950 Author Organization [facility] [place] [address] Care Team Providers Name Role Phone Chitra Bruno MD Primary Care Provider [phone] Allergies Active Allergy Reactions Severity Noted Date [...] Comments Blood Pressure 118/78 09/28/2010 2:38 PM DEBT COUNSELOR Pulse 71 09/28/2010 2:38 PM DEBT COUNSELOR Temperature - - Respiratory Rate - - Oxygen Saturation - - Inhaled Oxygen Concentration - - Weight 85.2 kg (187 lb 12.8 oz) 09/28/2010 2:38 PM DEBT COUNSELOR Height 174 cm (5' 8.5) 09/05/2010 3:52 PM DEBT COUNSELOR Body Mass Index 28.14 09/05/2010 3:52 PM DEBT COUNSELOR Plan of Treatment Health Maintenance Due Date [...] Type Group BLUE CROSS BLUE CROSS OF [id number] 2010-Present [address] [place] [address] Care Teams Drag Down Relationship Specialty Start Date End Date Chitra Bruno MD PCP - General Family Practice 08/29/10 [address] [place] [address]
--- OUTSIDE RECORDS SUMMARY | 2022-06-11 13:11 | XMS_ITS | Encounter Summary ---
:1950 Author Organization [facility] Address [address] [place] [address] Care Team Providers Name Role Phone Elsewhere, Pcp Primary Care Provider Unavailable Reason for Visit Appointment Request (Routine) - Closed Specialty Diagnoses / Procedures Referred By Contact Refer red To Contact Dermatology Referral ID Status Reason Start Date Expiration Date Visits Requ ested Visits Authorized [id number] Closed 01/03/2018 07/02/2018 1 Encounter Details Date Type Department Care Team Description 06/09/2018 Office Visit Department of Bubba Carvajal [facility] (Primary Dermatology in [place] ) [address] [phone] Social History Tobacco Use Types Packs/Day Years [...] 06/04/2022 relatives? How often do you attend islam or catholic Never 06/04/2022 services? Do you belong to any clubs or organizations such as No 06/04/2022 islam groups, unions, fraternal or athletic groups, or [...] place to sleep or slept in a jail (including now)? Sex Assigned at Date Recorded Female 06/04/2022 4:58 PM CDT documented as of this encounter Consult Notes Bubba Carvajal M.D. - 06/09/2018 2:45 PM CDT CHIEF COMPLAINT Skin cancer screening exam HISTORY OF THE PRESENT ILLNESS Alexia Phillips is a pleasant 67 y.o. female who is being seen the first time by me for a skin cancer screening exam. She has been seen by multiple dermatologists including Dr. Yesica Duke in [place]. The patient has two moles to the bilateral arms which have been present for as long as the patient is able to remember. She had a small lesion appear next to the mole involving the left antecubital fossa. At that time, she had a shave biopsy which was apparently benign. The patient also had anevus removed from her upper central back by her arson and bomb investigator in [place], [place] but she is uncertain of the diagnosis as to whether not it was atypical but she was told it was benign and not melanoma. She denies a personal history of skin cancer but she has a sister who has had basal cell carcinoma. The patient uses facial moisturizer with SPF 15 sunscreen. We have recommended SPF 30 or higher. PAST MEDICAL HISTORY No history of skin cancer FAMILY HISTORY Sister with history of basal cell carcinoma PHYSICAL EXAM General: Awake, alert, in no acute distress, and with appropriate affect. Eyes: No scleral injection or icterus. No eyelid abnormalities. Lymph: No lower extremity edema. Skin: I have examined the scalp, face, neck, chest, abdomen, back, bilateral upper extremities, and bilateral lower extremities. Examination of the skin reveals multiple benign nevi and lentigines. Examination of the the left anterior thigh reveals a 3.5 mm x 2.5 mm nevus with slightly irregular pigmen tation and borders. Examination of the right upper thigh reveals some seborrheic keratoses. Examination of the area lateral to left axilla reveals a benign seborrheic keratosis. Examination of the posterior legs reveals multiple benign nevi and seborrheic keratoses. Examination of the right lower backreveals a 5 mm x 3 mm dark brown nevus with slight irregular pigmentation and border. Examination ofthe upper central back reveals a scar with no evidence of recurrence of a suspicious lesion. Examination of the left upper back reveals a 6 mm x 9 mm nonspecific pinkish slightly firm macule, that could represent a dermatofibroma versus atypical nevus. IMPRESSION AND PLAN #1 Right lower back and left anterior thigh: Rule out atypical nevus I have recommended the patient return during procedure clinic on July 08 for a 8-mm punch biopsies of the nevus involving the right lower back and a 6 mm punch biopsy for the nevus involving the left anterior thigh. Photograph taken today with patient's verbal consent. #2 Left upper back: Dermatofibroma versus atypical nevus I have recommended the patient return during procedure clinic on July 08 for an excisional biopsy or 10-mm punch excision biopsy of the lesion. Photograph taken today with patient's verbal consent. #3 Multiple nevi The ABCDE criteria for melanoma was reviewed with the patient. None of the patient's nevi reach the clinical threshold for biopsy. I recommend continued sun protection, self-skin examinations, and observation. Should any of the patient's nevi change in size, color, texture, or shape or develop symptoms such as itching or bleeding, I recommend an immediate return visit for reassessment. PATIENT EDUCATION Ready to learn. No apparent learning barriers were identified. Learning preferences include listening. Explained diagnosis and treatment plan; patient/guardian of patient expressed understanding of thecontent. By signing my name below, I, Errol Rothman, attest that this documentation has been prepared under the direction and in the presence of Bubba Carvajal M.D.. Electronically Signed: sabrina Busch. 06/09/2018. 2:55 PM . I, Bubba Carvajal M.D., personally performed the services described in this documentation. All medical record entries made by the scribe were at my direction and in my presence. I have reviewed the chart and discharge instructions (if applicable) and agree that the record reflects my personal performance and is accurate and complete. Bubba Carvajal M.D. . 06/09/2018. 4:11 PM. documented in this encounter Plan of Treatment Upcoming Encounters Date Type Specialty Care Team Description 07/12/2022 Appointment Radiology López Doran M .D. [address] [place], [place] [phone] (Wo rk) documented as of this encounter Visit Diagnoses Diagnosis Nevi Multiple - Primary documented in this encounter Care Teams Ems Manager Relationship Specialty Start Date End Date Elsewhere, Pcp PCP - General Family Medicine 01/03/18 documented as of this encounter
--- OUTSIDE RECORDS SUMMARY | 2022-06-11 13:11 | XMS_ITS | Encounter Summary ---
:1950 Author Organization [facility] Address [address] [place] [address] Care Team Providers Name Role Phone Elsewhere, Pcp Primary Care Provider Unavailable Encounter Details Date Type Department Care Team Description 01/16/2018 Abstract Department of Family Medicine in Provider , Historical Julianna Leary n [address] [phone] Social History Tobacco Use Types Packs/Day Years [...] 06/04/2022 relatives? How often do you attend jewish or oriental orthodox Never 06/04/2022 services? Do you belong to any clubs or organizations such as No 06/04/2022 jewish groups, unions, fraternal or athletic groups, or [...] place to sleep or slept in a long-term (including now)? Sex Assigned at Date Recorded Female 06/04/2022 4:58 PM CDT documented as of this encounter Plan of Treatment Upcoming Encounters Date Type Specialty Care Team Description 07/12/2022 Appointment Radiology López Doran M .D. [address] [place], [place] [phone] (Wo rk) documented as of this encounter Visit Diagnoses Not on filedocumented in this encounter Care Teams Starcher And Tenter Range Feeder Relationship Specialty Start Date End Date Elsewhere, Pcp PCP - General Family Medicine 01/03/18 documented as of this encounter
--- NOTE | 2022-06-11 13:20 | CRLHL7_ITS ---
For Patients: As a result of the Century Cures Act, medical imaging exams and procedure reports are released immediately into your electronic medical record. You may view this report before your referring provider. If you have questions, please contact your health care provider. BILATERAL SCREENING MAMMOGRAM WITH COMPUTER-AIDED DETECTION AND TOMOSYNTHESIS TECHNIQUE: CC and MLO views were obtained. These mammographic images have been obtained using full-field digital technique. These mammographic images were interpreted with the benefit of computer-aided detection. Breast Tomosynthesis was used in this interpretation. COMPARISON FILM: 04/26/21, 03/16/20, 03/06/19. FINDINGS: There are scattered areas of fibroglandular density IMPRESSION: There is no radiographic evidence for malignancy. ASSESSMENT: BI-RADS Category 1: Negative RECOMMENDATION: Routine screening mammogram in 1 year. A lay language report of this examination will be provided to the patient. Dale Jordan M.D. Diagnostic Radiologist [email or web address] BRODY/Dictated by: Dale Jordan MD @ 06/12/2022 9:13:00 AM (Electronically Signed)
== END 2022-06-11 13:07 | disposition home or self-care (01) ==
LOC: MAMMO 13:06
PROVIDERS: PCP Family Medicine; Visit Provider Family Medicine
DX: Z12.31 Encounter for screening mammogram for malignant neoplasm of breast (principal)
CPT/HCPCS: 77063; 77067

== ENCOUNTER 2023-03-20 10:05 | Outpatient (CLI) | payer MEDICARE, SELFPAY ==
[2023-03-20 18:58] LABS: Lab Add On Test New Spec Needed
== END 2023-03-20 10:06 | disposition home or self-care (01) ==
PROVIDERS: PCP Family Medicine; Referring Provider Family Medicine; Visit Provider Family Medicine
DX: R53.83 Other fatigue (principal); E55.9 Vitamin D deficiency, unspecified; D64.9 Anemia, unspecified; Z13.6 Encounter for screening for cardiovascular disorders
CPT/HCPCS: 80053; 80061; 82306; 82607; 82728

== ENCOUNTER 2023-04-04 12:39 | Outpatient (CLI) | payer MEDICARE, SELFPAY ==
--- NOTE | 2023-04-04 08:26 | W.ANESCHARGE ---
Anesthesia Charges Start Date/Time Anesthesia Start Date: 04/04/23 Anesthesia Start Time: 13:40 Stop Date/Time Anesthesia Stop Date: 04/04/23 Anesthesia Stop Time: 13:56 Summary Extremes of Age - Over 70 or under 1: MDA
--- NOTE | 2023-04-04 14:01 | W.ANESCHARGE ---
Anesthesia Charges Start Date/Time Anesthesia Start Date: 04/04/23 Anesthesia Start Time: 13:40 Stop Date/Time Anesthesia Stop Date: 04/04/23 Anesthesia Stop Time: 13:56
== END 2023-04-04 12:40 | disposition home or self-care (01) ==
LOC: OP CLINIC 12:40
PROVIDERS: PCP Family Medicine; Visit Provider Internal Medicine
DX: D50.9 Iron deficiency anemia, unspecified (principal); K25.9 Gastric ulcer, unspecified as acute or chronic, without hemorrhage or perforation
CPT/HCPCS: 43239; 731; 88305; 88342; 99100; J2704

== ENCOUNTER 2023-04-30 14:05 | Outpatient (CLI) | payer MEDICARE, SELFPAY | END 2023-04-30 14:06 | disposition home or self-care (01) | LOC: NFLDREF 05-01 08:00 | PROVIDERS: PCP Family Medicine; Referring Provider Family Medicine; Visit Provider Family Medicine | DX: D50.9 Iron deficiency anemia, unspecified (principal) | CPT/HCPCS: 80053; 82728 ==

== ENCOUNTER 2023-05-08 14:59 | Outpatient (CLI) | payer MEDICARE, SELFPAY ==
--- NOTE | 2023-05-08 15:00 | CRLHL7_ITS ---
For Patients: As a result of the Century Cures Act, medical imaging exams and procedure reports are released immediately into your electronic medical record. You may view this report before your referring provider. If you have questions, please contact your health care provider. DXA BONE MINERAL DENSITY STUDY Reason for exam: Osteopenia. Current height (in): 68. Weight (lb): 154. Menopause age: 54. Ethnicity: White. 1. Have you had a previous hip or vertebral fracture? No. 2. Have you had any fractures during your adult life which did not result from significant trauma (e.g., auto accident)? No. 3. Did either of your parents have a hip fracture? No. 4. Do you smoke? No. 5. Have you ever taken Glucocorticoids? No. 6. Do you have rheumatoid arthritis? No. 7. Do you have secondary osteoporosis? No. 8. Do you drink 3 or more alcoholic drinks per day? No. 9. Are you being treated for osteoporosis? No. 10. Have you ever taken any of the following medications: Actonel, Evista, Fosamax, Miacalcin, Reclast, Boniva, Forteo, HRT (i.e. estrogen/hormone therapy), Protelos, Prolia, Vitamin D, Calcium, other ??? please specify. ANSWER: No. 11. Do you have any of the following medical conditions: Anorexia or bulimia, asthma or emphysema, end stage renal disease, hyperparathyroidism, any seizure disorders, cancer, inflammatory bowel diseases, hysterectomy, other ??? please specify. ANSWER: Yes, hysterectomy. 12. What was your maximum height (inches)? 69. 13. Do you perform weight bearing exercise regularly? Yes. 14. Do you regularly consume dairy products? Yes. . 15. Do you drink caffeinated beverages? Yes. 16. At what age did your period start? 15. 17. Are you premenopausal? No. 18. How many full term pregnancies have you had? 0. 19. Have you ever missed your period for more than 6 months in a row (not including or menopause)? No. TECHNIQUE: Bone mineral density study was performed using the [employer]. FINDINGS: The results of the study expressed as bone mineral density (BMD) are as follows: Lumbar spine L1 to L4: BMD: 0.824 g/cm2. T-score: -2.0 Z-score: 0.1. Neck Left: BMD: 0.788 g/cm2. T-score: -0.5. Z-score: 1.3. Right: BMD: 0.792 g/cm2. T-score: -0.5. Z-score: 1.3. Total Left: BMD: 0.969 g/cm2. T-score: 0.2. Z-score: 1.8. Right: BMD: 0.971 g/cm2. T-score: 0.2. Z-score: 1.8. IMPRESSION: Osteopenia. *Comparison exams done prior to 01/2020 were performed on different unit, [employer]. COMPARISON: Compared with scan of 01/23/2018, the bone mineral density has decreased by 0.8 percent at the spine. Compared with scan of 03/16/2020 the bone mineral density has decreased by 1.1 percent at the hip. FRAX 10-year Fracture Risk Major Osteoporotic Fracture: 7.9 percent Hip Fracture: 0.7 percent Reported Risk Factors: [place] () Neck BMD=0.788, BMI=23.4 Dale Jordan M.D. Diagnostic Radiologist [email or web address] BRODY/Dictated by: Dale Jordan MD @ 05/09/2023 9:55:00 AM (Electronically Signed)
== END 2023-05-08 15:00 | disposition home or self-care (01) ==
LOC: RAD 14:59
PROVIDERS: PCP Family Medicine; Visit Provider Family Medicine
DX: M85.80 Other specified disorders of bone density and structure, unspecified site (principal); M85.88 Other specified disorders of bone density and structure, other site
CPT/HCPCS: 77080

== ENCOUNTER 2023-07-05 14:27 | Outpatient (CLI) | payer MEDICARE, SELFPAY ==
--- NOTE | 2023-07-05 14:40 | CRLHL7_ITS ---
For Patients: As a result of the Century Cures Act, medical imaging exams and procedure reports are released immediately into your electronic medical record. You may view this report before your referring provider. If you have questions, please contact your health care provider. BILATERAL DIGITAL SCREENING MAMMOGRAM WITH TOMOSYNTHESIS AND COMPUTER-AIDED DETECTION CLINICAL HISTORY: Routine screening exam. COMPARISON: 06/11/2022, 04/26/2021, 03/16/2020. TECHNIQUE: Digital mammogram in CC and MLO projections including computer-aided detection (CAD). Tomosynthesis utilized. BREAST COMPOSITION: The breasts are heterogeneously dense, which may obscure small masses. FINDINGS: RIGHT Breast: Focal asymmetric density retroareolar plane 4 cm from the nipple. LEFT Breast: No suspicious findings. IMPRESSION: RIGHT breast asymmetry/mass. RECOMMENDATIONS: Additional mammographic views of the RIGHT breast including 3D spot compression CC/MLO. RIGHT breast ultrasound may also be required. BI-RADS Category 0: Incomplete: Need Additional Imaging Evaluation and/or Prior Mammograms for Comparison The [facility] will contact the patient for follow-up. A lay language report of this examination will be provided to the patient. Dictated by Dale Jordan MD @ 07/08/2023 1:08:17 PM [place]/Dictated by: Dale Jordan MD @ 07/08/2023 1:08:00 PM (Electronically Signed)
== END 2023-07-05 14:28 | disposition home or self-care (01) ==
LOC: MAMMO 14:28
PROVIDERS: PCP Family Medicine; Visit Provider Family Medicine
DX: Z12.31 Encounter for screening mammogram for malignant neoplasm of breast (principal); N63.10 Unspecified lump in the right breast, unspecified quadrant; R92.2 Inconclusive mammogram
CPT/HCPCS: 77063; 77067

== ENCOUNTER 2023-07-19 10:42 | Outpatient (CLI) | payer MEDICARE, SELFPAY ==
--- NOTE | 2023-07-19 10:45 | CRLHL7_ITS ---
For Patients: As a result of the Cures Act, medical imaging exams and procedure reports are released immediately into your electronic medical record. You may view this report before your referring provider. If you have questions, please contact your health care provider. DIGITAL DIAGNOSTIC RIGHT MAMMOGRAM USING TOMOSYNTHESIS AND COMPUTER-AIDED DETECTION RIGHT BREAST ULTRASOUND CLINICAL HISTORY: RIGHT breast mass/asymmetry. COMPARISON: 07/05/2023, 06/11/2022, 04/26/2021, 03/16/2020. TECHNIQUE: Digital RIGHT mammogram in two projections. Tomosynthesis and CAD utilized. Real-time ultrasound imaging of RIGHT breast with imaging documentation. Scanning was performed by both the technologist and the radiologist. BREAST COMPOSITION: The breast is heterogeneously dense, which may obscure small masses. FINDINGS: 3D spot compression CC/MLO RIGHT breast mammogram images submitted. Persistent asymmetric density in the retroareolar plane. No suspicious calcifications or adenopathy. Targeted RIGHT breast ultrasound performed. In the retroareolar plane at 9 o`clock 1 cm from the nipple, there is an ill-defined area of decreased echotexture, only visualized in the anti-radial plane due to the presence of the nipple, measuring approximately 2.4 cm. IMPRESSION: Indeterminate ill-defined area of hypoechoic tissue 9 o`clock 1 cm from the nipple RIGHT breast. RECOMMENDATIONS: Ultrasound-guided biopsy recommended. Results and recommendations discussed with the patient. BI-RADS Category 4: Suspicious Dictated by Dale Jordan MD @ 07/19/2023 11:46:06 AM jj/Dictated by: Dale Jordan MD @ 07/19/2023 11:46:00 AM (Electronically Signed)
--- NOTE | 2023-07-19 11:15 | CRLHL7_ITS ---
For Patients: As a result of the Cures Act, medical imaging exams and procedure reports are released immediately into your electronic medical record. You may view this report before your referring provider. If you have questions, please contact your health care provider. PLEASE SEE DIGITAL DIAGNOSTIC RIGHT MAMMOGRAM PERFORMED SAME DAY CRL:[place] goff/Dictated by: Dale Jordan MD @ 07/19/2023 11:58:00 AM (Electronically Signed)
== END 2023-07-19 10:43 | disposition home or self-care (01) ==
LOC: MAMMO 10:43
PROVIDERS: PCP Family Medicine; Visit Provider Family Medicine
DX: N63.10 Unspecified lump in the right breast, unspecified quadrant (principal); R92.8 Other abnormal and inconclusive findings on diagnostic imaging of breast
CPT/HCPCS: 76642; 77065; G0279

== ENCOUNTER 2023-07-31 11:01 | Outpatient (CLI) | payer MEDICARE, SELFPAY ==
--- NOTE | 2023-07-31 11:15 | CRLHL7_ITS ---
For Patients: As a result of the Century Cures Act, medical imaging exams and procedure reports are released immediately into your electronic medical record. You may view this report before your referring provider. If you have questions, please contact your health care provider. ULTRASOUND-GUIDED BREAST BIOPSY AND POST-BIOPSY DIGITAL MAMMOGRAM FOR BIOPSY MARKER PLACEMENT CLINICAL HISTORY: Indeterminate hypoechoic lesion. COMPARISON STUDIES: 07/05/2023. TECHNIQUE: Real-time ultrasound with image documentation was used for targeting the breast lesion. Core biopsy specimens were obtained using an automated gun with a 18-gauge biopsy needle. Post-biopsy CC and ML digital mammograms were obtained to document position of the biopsy marker. CONSENT and TIME OUT: The procedure, risks, and alternatives were explained to the patient and a consent was signed. [place] Protocol was followed including pre-procedure verification that relevant information/documentation was available, reviewed and properly matched to the patient; consent accurate and complete; and equipment and supplies available. Time Out was conducted just prior to starting procedure to verify the four required elements: patient identity, correct side/site marked (if applicable), procedure, relevant images/results properly labeled and displayed (if applicable). PROCEDURE: The patient was positioned supine on the ultrasound table. The breast was prepped with ChloraPrep. 8 cc of 1% lidocaine was injected for local anesthesia. Core samples were obtained. A sterile metal biopsy clip was placed percutaneously to nate the lesion position within the breast. The specimens were placed in 10% formalin and sent to the pathology department. Pressure was held on the biopsy site until all bleeding subsided. The skin incision was closed with Steri-Strips. An ice pack was positioned over the biopsy site. Post-biopsy instructions were reviewed with the patient, and a written copy was given to her. LATERALITY: RIGHT breast. LESION: Ill-defined hypoechoic breast tissue measuring approximately 2.5 cm at 9 o`clock 1 cm from the nipple. SUSPICION FOR MALIGNANCY: Low-medium. NUMBER OF SAMPLES: 5. BIOPSY CLIP SHAPE: Oval. PROXIMITY OF CLIP TO TARGET: Within the lesion. IMPRESSION: Ultrasound-guided breast biopsy. When the pathology report is available, an addendum to this report will be made. ACR not applicable Dictated by Dale Jordan MD @ 07/31/2023 12:11:38 PM jj/Dictated by: Dale Jordan MD @ 07/31/2023 12:11:00 PM (Electronically Signed)
--- NOTE | 2023-07-31 12:00 | CRLHL7_ITS ---
For Patients: As a result of the Century Cures Act, medical imaging exams and procedure reports are released immediately into your electronic medical record. You may view this report before your referring provider. If you have questions, please contact your health care provider. PLEASE SEE ULTRASOUND-GUIDED RIGHT BREAST BIOPSY PERFORMED SAME DAY CRL:[place] goff/Dictated by: Dale Jordan MD @ 07/31/2023 2:42:00 PM (Electronically Signed)
== END 2023-07-31 11:02 | disposition home or self-care (01) ==
LOC: US 11:01
PROVIDERS: PCP Family Medicine; Visit Provider Family Medicine
DX: N63.10 Unspecified lump in the right breast, unspecified quadrant (principal); R92.8 Other abnormal and inconclusive findings on diagnostic imaging of breast
CPT/HCPCS: 19083; 77065; 88305; A4648; A4649

== ENCOUNTER 2023-08-25 22:14 | Emergency (ER) | payer MEDICARE, SELFPAY ==
[2023-08-25 22:27] VITALS: BP 148/71; PULSE 84; RESP 16; TEMP 36.2; O2SAT 96; BMI 22.8
--- NOTE | 2023-08-25 23:34 | ED.GENADULT ---
HPI - General Adult General Chief complaint: Back Injury/Pain Stated complaint: covid positive, right flank pain Time Seen by Provider: 08/25/23 23:18 History of Present Illness HPI narrative: This 73-year-old female comes in reporting pain in her right lateral and posterior ribs related to coughing. She was diagnosed with COVID about 3 or 4 weeks ago and states that she has continued to cough throughout this time. She now has developed significant pain in her right lateral and posterior ribs when coughing. She was evaluated a couple weeks ago and without any imaging or studies she received a prescription for doxycycline. She has been taking this without any relief. She arrives here with normal vital signs. Her main reason for presenting here is because of the distinct and severe pain when coughing. Related Data Home Medications Medication Instructions Recorded Confirmed acetaminophen 500 mg tablet mg PO .As Needed as needed PRN 03/14/22 08/15/23 ascorbic acid (vitamin C) 1,000 mg 1 g PO DAILY 03/14/22 08/15/23 tablet cholecalciferol (vitamin D3) 50 2,000 unit PO DAILY 03/14/22 08/15/23 mcg (2,000 unit) capsule cyanocobalamin (vitamin B-12) 1,000 mcg PO .weekly 03/14/22 08/15/23 1,000 mcg tablet multivitamin with minerals-ferrous tab PO DAILY 03/14/22 08/15/23 sulfate 4.5 mg iron tablet (One Daily Multivitamins with Minerals) zinc 50 mg tablet 50 mg PO QDAY 03/14/22 08/15/23 glucosamine chondroi 2 tab PO DAILY 01/01/23 08/15/23 estradiol 0.5 mg tablet 0.5 mg PO .Every 3 days 05/08/23 08/15/23 Previous Rx's Medication Instructions Recorded iron,carbonyl 65 mg-vitamin C 125 1 tab PO QHS #90 tabs 05/08/23 mg tablet,delayed release (Vitron-C) estradiol 1 mg tablet 1 mg PO QDAY 1 month #30 tabs 06/25/23 codeine 10 mg-guaifenesin 100 mg/5 5 - 10 ml PO BID PRN cough #240 mL 08/15/23 mL oral liquid doxycycline hyclate 100 mg capsule 100 mg PO BID #20 caps 08/15/23 omeprazole 20 mg capsule,delayed 20 mg PO QDAY #90 caps 08/22/23 release Allergies Allergy/AdvReac Type Severity Reaction Status Date / Time penicillin V Allergy Mild Rash Verified 08/15/23 11:22 Sulfa (Sulfonamide Allergy Mild Verified 08/15/23 11:22 Antibiotics) Review of Systems Status of ROS: Reports: 10 or more systems reviewed and unremarkable except as noted in History and below Narrative: Constitutional: No fevers, no weight gain or loss. Eyes: No discharge. No vision changes. HENT: No congestion, no sore throat, no ear pain. Cardiovascular: No chest pain, no palpitations. Respiratory: No shortness of breath, no wheezes. She has a nonproductive cough. Gastrointestinal: No abdominal pain, no vomiting, no diarrhea. Genitourinary: No dysuria, no hematuria. Musculoskeletal: Normal range of motion. Skin: No rashes, no pruritis. Neurological: No dizziness, weakness, sensory change, speech change. Endo/Heme/Allergies: No bruising or bleeding. No polydipsia. Pysch: no suicidality, no anxiety, no insomnia. All other systems reviewed and are negative. 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-10) Hot flashes due to menopause ?N95.1 - Menopausal and female climacteric states (ICD-10) Osteoporosis ?M81.0 - Age-related osteoporosis without current pathological fracture (ICD-10) Osteopenia (2018) ?M85.80 - Other specified disorders of bone density and structure, unspecified site (ICD-10) Left shoulder pain ?M25.512 - Pain in left shoulder (ICD-10) History of in vitro fertilization ?Z98.890 - Other specified postprocedural states (ICD-10) History of fracture of wrist (08/2017) ?Z87.81 - Personal history of (healed) traumatic fracture (ICD-10) Surgical History 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) ?Z90.89 - Acquired absence of other organs (ICD-10) History of total abdominal hysterectomy and bilateral salpingo-oophorectomy (2002) ?Z90.710 - Acquired absence of both cervix and uterus (ICD-10) ?Z90.722 - Acquired absence of ovaries, bilateral (ICD-10) ?Z90.79 - Acquired absence of other genital organ(s) (ICD-10) History of surgery on wrist (~2018) ?Z98.890 - Other specified postprocedural states (ICD-10) History of colonoscopy (2018) ?Z98.890 - Other specified postprocedural states (ICD-10) History of bilateral cataract extraction (2018) ?Z98.41 - Cataract extraction status, right eye (ICD-10) ?Z98.42 - Cataract extraction status, left eye (ICD-10) Family History Father Bladder cancer, Onset Age: 60 High blood pressure Paternal Grandfather Coronary artery disease Mother Ovarian cancer, Onset Age: 65 Sister Thyroid disease Social History (Updated 03/27/23 @ 15:04 by Jolie Munoz ~ CTA) Narrative: exercises regularly- 3-4/week gym, weights, cardio non-smoker rarely consumes alcohol lives [place] lives with 21 yo adopted Aspergers son What is your current living situation?: I presently have a place to live Problems where you live: no known problems In the past 12 months, utilities in danger of being shut off: no In past 12 months, lack of transportation kept you from medical appts, meetings, work, or getting things needed for daily living: no In the past 12 mos, have been you worried that your food would run out before you had money to buy more?: never true In the past 12 mos, the food you bought just didn't last and you didn't have money to buy more?: never true Smoking Status: Never smoker How often do you have a drink containing alcohol: monthly or less How often do you have six or more drinks on one occasion: Never AUDIT-C Alcohol total score: 1 Non-prescribed substance use: denies use How often does anyone, including family, friends and others, physically hurt you: never How often does anyone, including family, friends and others, insult or talk down to you: never How often does anyone, including family, friends and others, threaten you with harm: never How often does anyone, including family, friends and others, scream or curse at you: never Little interest or pleasure in doing things: not at all Feeling down, depressed, or hopeless: not at all Exam Narrative: Exam Narrative: Constitutional: Well-developed, well-nourished, no acute distress. HEENT: Normocephalic, atraumatic. Neck: Normal range of motion. Nontender. Supple. Heart: Regular. No murmurs. Normal rate. Intact distal pulses. Lungs: Clear to auscultation. No wheezes, rhonchi, or rales. Distinct pain in the right lateral and posterior ribs when coughing and with certain movements. Abdomen: Normal bowel sounds. Nontender. No rebound tenderness. Genitalia: Deferred. Back: No midline tenderness. Normal range of motion. Extremities: Normal range of motion. No injury. Skin: Intact. No rash. Warm. No erythema or pallor. Neurologic: No altered sensation. No weakness. Alert and oriented. Psychiatric: No suicidality. No anxiety or depression. No insomnia. Nursing notes and vitals signs are reviewed. Const: Vital Signs, click to edit/add: Vital Signs - 24 hr 08/25/23 22:27 Temperature 97.2 F L Pulse Rate [Pulse Oximeter] 84 Respiratory Rate 16 Blood Pressure [Ri ght Upper Arm] 148/71 H Pulse Oximetry 96 Oxygen Delivery Me thod Room Air Course Vital Signs Vital signs: Initial Vital Signs Temperature 97.2 F L 08/25/23 22:27 Temperature Source Temporal Artery Scan 08/25/23 22:27 Pulse Rate 84 08/25/23 22:27 Pulse Rhythm Regular 08/25/23 22:27 Respiratory Rate 16 08/25/23 22:27 Blood Pressure 148/71 H 08/25/23 22:27 Blood Pressure Mean 96 08/25/23 22:27 Blood Pressure Position Sitting 08/25/23 22:27 Pulse Oximetry 96 08/25/23 22:27 Oxygen Delivery Method Room Air 08/25/23 22:27 Vital Signs Temperature 97.2 F L 08/25/23 22:27 Pulse Rate 84 08/25/23 22:27 Respiratory Rate 16 08/25/23 22:27 Blood Pressure 148/71 H 08/25/23 22:27 Pulse Oximetry 96 08/25/23 22:27 Oxygen Delivery Method Room Air 08/25/23 22:27 Temperature 97.2 F L 08/25/23 22:27 Pulse Rate 84 08/25/23 22:27 Respiratory Rate 16 08/25/23 22:27 Blood Pressure 148/71 H 08/25/23 22:27 Pulse Oximetry 96 08/25/23 22:27 Oxygen Delivery Method Room Air 08/25/23 22:27 Medical Decision Making MDM Narrative Medical decision making narrative: This patient comes in with persistent cough that is now causing distinct pain in her ribs on the right lateral and posterior aspect of her thorax. She arrives with normal vital signs and lungs are clear to auscultation. She is just now finishing a course of doxycycline without any relief. I did discuss the role of x-ray and labs but these were declined in a process of shared decision making. The patient did receive a wide Jayro wrap around her lower ribs which she states seemed to bring some relief. Additionally she received [facility] prescriptions for Toradol and Tylenol 3. Discharge Plan Discharge Clinical Impression: Rib pain on right side Patient Disposition: Home, Self-Care Condition: Stable Additional Instructions: Wear Jayro wrap or a rib belt as needed and directed. Take medication also as needed and directed. Activity as tolerated. Follow up with MD return if worsening. Prescriptions: No Action doxycycline hyclate 100 mg capsule 100 mg PO BID Qty: 20 0RF codeine-guaifenesin 10-100 mg/5 mL liquid 5 - 10 ml PO BID PRN (Reason: cough) Qty: 240 0RF cholecalciferol (vitamin D3) 50 mcg (2,000 unit) capsule 2,000 unit PO DAILY Rx Instructions: MWF during the summer, daily during the winter. acetaminophen 500 mg tablet PO .As Needed as needed PRN Rx Instructions: NO MORE THAN 4000 MG/DAY cyanocobalamin (vitamin B-12) 1,000 mcg tablet 1,000 mcg PO .weekly ascorbic acid (vitamin C) 1,000 mg tablet 1 g PO DAILY zinc 50 mg tablet 50 mg PO QDAY One Daily Multi-Vit w-Mineral 4.5 mg iron tablet PO DAILY estradiol 0.5 mg tablet 0.5 mg PO .Every 3 days Rx Instructions: Using every 3 days glucosamine chondroi 2 tab PO DAILY Vitron-C 65 mg iron- 125 mg tablet,delayed release (DR/EC) 1 tab PO QHS Qty: 90 0RF estradiol 1 mg tablet 1 mg PO QDAY 30 Days Qty: 30 12RF omeprazole 20 mg capsule,delayed release(DR/EC) 20 mg PO QDAY Qty: 90 0RF Follow Up/Referrals: Aury Estevez MD [Primary Care Provider] - Stand Alone Forms: [employer] Info Instructions
== END 2023-08-25 23:56 | disposition home or self-care (01) ==
LOC: ED 23:49
PROVIDERS: Emergency Provider Emergency Medicine Emergency Medical Services; PCP Family Medicine
DX: R05.9 Cough, unspecified (principal); S29.011A Strain of muscle and tendon of front wall of thorax, initial encounter
CPT/HCPCS: 99283; 99284

== ENCOUNTER 2023-09-04 19:37 | Inpatient (IN) | payer MEDICARE, SELFPAY ==
[2023-09-04] VITALS (18 sets, daily range): BP systolic 133–195; BP diastolic 56–113; PULSE 81–119; RESP 20–30; TEMP 36.7–39.6; O2SAT 86–99; BMI 22.8
--- NOTE | 2023-09-04 20:01 | CRLHL7_ITS ---
For Patients: As a result of the Century Cures Act, medical imaging exams and procedure reports are released immediately into your electronic medical record. You may view this report before your referring provider. If you have questions, please contact your health care provider. INDICATION: Hypoxia, fever. TECHNIQUE: Chest 1 view. COMPARISON: Chest radiograph 10/02/2022. FINDINGS: There are patchy opacities in the lower lungs bilaterally suspicious for pneumonia. No pleural effusion or pneumothorax. Heart size and pulmonary vasculature are within normal limits. Sternotomy. Surgical clips along the right mediastinum. Asymmetric density in the right hilum. There are multiple subacute to chronic appearing right lateral rib fractures which are new since prior exam. IMPRESSION: 1. Patchy bibasilar opacities suspicious for pneumonia. 2. Asymmetric density in the right hilum could be due to lymphadenopathy. 3. Multiple new right lateral rib fractures which have a subacute to chronic appearance. Dictated by Sheree Benavidez MD @ 09/04/2023 9:16:30 PM (Electronically Signed)
--- NOTE | 2023-09-04 20:04 | ED.GENADULT ---
HPI - General Adult General Chief complaint: Shortness of Breath/Dyspnea Stated complaint: Covid+, short of breath Time Seen by Provider: 09/04/23 19:54 History of Present Illness HPI narrative: This 73-year-old female comes in with fever and shortness of breath. She states that these fevers started yesterday and today. She has been coughing for the past fiber 6 weeks but symptoms got worse in the past day or so. She was diagnosed with COVID in the beginning of July last month. She arrives here with tachycardia, tachypnea, oximetry at 86% on room air, and a temperature at 103.3? F. 2 L of oxygen was applied by nasal cannula and this brought her oximetry up to 94-95%. She reports chills and fevers. Related Data Home Medications Medication Instructions Recorded Confirmed acetaminophen 500 mg tablet mg PO .As Needed as needed PRN 03/14/22 08/15/23 ascorbic acid (vitamin C) 1,000 mg 1 g PO DAILY 03/14/22 08/15/23 tablet cholecalciferol (vitamin D3) 50 2,000 unit PO DAILY 03/14/22 08/15/23 mcg (2,000 unit) capsule cyanocobalamin (vitamin B-12) 1,000 mcg PO .weekly 03/14/22 08/15/23 1,000 mcg tablet multivitamin with minerals-ferrous tab PO DAILY 03/14/22 08/15/23 sulfate 4.5 mg iron tablet (One Daily Multivitamins with Minerals) zinc 50 mg tablet 50 mg PO QDAY 03/14/22 08/15/23 glucosamine chondroi 2 tab PO DAILY 01/01/23 08/15/23 estradiol 0.5 mg tablet 0.5 mg PO .Every 3 days 05/08/23 08/15/23 Previous Rx's Medication Instructions Recorded iron,carbonyl 65 mg-vitamin C 125 1 tab PO QHS #90 tabs 05/08/23 mg tablet,delayed release (Vitron-C) estradiol 1 mg tablet 1 mg PO QDAY 1 month #30 tabs 06/25/23 codeine 10 mg-guaifenesin 100 mg/5 5 - 10 ml PO BID PRN cough #240 mL 08/15/23 mL oral liquid doxycycline hyclate 100 mg capsule 100 mg PO BID #20 caps 12/21/23 omeprazole 20 mg capsule,delayed 20 mg PO QDAY #90 caps 08/22/23 release Allergies Allergy/AdvReac Type Severity Reaction Status Date / Time penicillin V Allergy Mild Rash Verified 09/04/23 22:48 Sulfa (Sulfonamide Allergy Mild Verified 09/04/23 22:48 Antibiotics) Review of Systems Status of ROS: Reports: 10 or more systems reviewed and unremarkable except as noted in History and below Narrative: Constitutional: No weight gain or loss. She reports fever and chills. Eyes: No discharge. No vision changes. HENT: No congestion, no sore throat, no ear pain. Cardiovascular: No chest pain, no palpitations. Respiratory: Cough and shortness of breath. Gastrointestinal: No abdominal pain, no vomiting, no diarrhea. Genitourinary: No dysuria, no hematuria. Musculoskeletal: Normal range of motion. Skin: No rashes, no pruritis. Neurological: No dizziness, weakness, sensory change, speech change. Endo/Heme/Allergies: No bruising or bleeding. No polydipsia. Pysch: no suicidality, no anxiety, no insomnia. All other systems reviewed and are negative. 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) Hot flashes due to menopause ?N95.1 - Menopausal and female climacteric states (ICD-10) Osteoporosis ?M81.0 - Age-related osteoporosis without current pathological fracture (ICD-10) Osteopenia (2018) ?M85.80 - Other specified disorders of bone density and structure, unspecified site (ICD-10) Left shoulder pain ?M25.512 - Pain in left shoulder (ICD-10) History of in vitro fertilization ?Z98.890 - Other specified postprocedural states (ICD-10) History of fracture of wrist (08/2017) ?Z87.81 - Personal history of (healed) traumatic fracture (ICD-10) Surgical History 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) ?Z90.89 - Acquired absence of other organs (ICD-10) History of total abdominal hysterectomy and bilateral salpingo-oophorectomy (2002) ?Z90.710 - Acquired absence of both cervix and uterus (ICD-10) ?Z90.722 - Acquired absence of ovaries, bilateral (ICD-10) ?Z90.79 - Acquired absence of other genital organ(s) (ICD-10) History of surgery on wrist (~2018) ?Z98.890 - Other specified postprocedural states (ICD-10) History of colonoscopy (2018) ?Z98.890 - Other specified postprocedural states (ICD-10) History of bilateral cataract extraction (2018) ?Z98.41 - Cataract extraction status, right eye (ICD-10) ?Z98.42 - Cataract extraction status, left eye (ICD-10) Family History Father Bladder cancer, Onset Age: 60 High blood pressure Paternal Grandfather Coronary artery disease Mother Ovarian cancer, Onset Age: 65 Sister Thyroid disease Social History (Updated 09/04/23 @ 22:53 by Master Hawkins MD) Narrative: exercises regularly- 3-4/week gym, weights, cardio non-smoker rarely consumes alcohol lives in lives with 25 yo adopted Aspergers son Her sister Rea Purcell from [place] is healthcare power of 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 Code status is full What is your current living situation?: I presently have a place to live Problems where you live: no known problems Problems where you live details: N/A In the past 12 months, utilities in danger of being shut off: no In past 12 months, lack of transportation kept you from medical appts, meetings, work, or getting things needed for daily living: no In the past 12 mos, have been you worried that your food would run out before you had money to buy more?: never true In the past 12 mos, the food you bought just didn't last and you didn't have money to buy more?: never true Highest level of school completed/degree received: Master's degree Smoking Status: Never smoker How often do you have a drink containing alcohol: never How often do you have six or more drinks on one occasion: Never AUDIT-C Alcohol total score: 0 Non-prescribed substance use: denies use Caffeine: Yes (Occasional coffee) How often does anyone, including family, friends and others, physically hurt you: never How often does anyone, including family, friends and others, insult or talk down to you: never How often does anyone, including family, friends and others, threaten you with harm: never How often does anyone, including family, friends and others, scream or curse at you: never Little interest or pleasure in doing things: not at all Feeling down, depressed, or hopeless: not at all service: No Exam Narrative: Exam Narrative: Constitutional: Well-developed, well-nourished, no acute distress. HEENT: Normocephalic, atraumatic. Neck: Normal range of motion. Nontender. Supple. Heart: Regular. No murmurs. Normal rate. Intact distal pulses. Lungs: Clear to auscultation. No chest discomfort. No wheezes, rhonchi, or rales. Abdomen: Normal bowel sounds. Nontender. No rebound tenderness. Genitalia: Deferred. Back: No midline tenderness. Normal range of motion. Extremities: Normal range of motion. No injury. Skin: Intact. No rash. Warm. No erythema or pallor. Neurologic: No altered sensation. No weakness. Alert and oriented. Psychiatric: No suicidality. No anxiety or depression. No insomnia. Nursing notes and vitals signs are reviewed. Const: Vital Signs, click to edit/add: Vital Signs - 24 hr 09/04/23 19:47 09/04/23 19:53 09/04/23 20:00 Temperature 103.3 F H Pulse Rate 110 H 119 H Pulse Rate [Pulse Oximeter] 111 H Respiratory Rate 30 H Blood Pressure Blood Pressure [Le ft Upper Arm] 195/113 H Pulse Oximetry 86 L 96 94 Oxygen Delivery Me thod Room Air Oxygen Flow Rate 09/04/23 20:15 09/04/23 20:30 09/04/23 20:45 Temperature Pulse Rate 107 H 103 H 103 H Pulse Rate [Pulse Oximeter] Respiratory Rate Blood Pressure Blood Pressure [Le ft Upper Arm] Pulse Oximetry 96 95 96 Oxygen Delivery Me thod Oxygen Flow Rate 09/04/23 21:00 09/04/23 21:15 09/04/23 21:22 Temperature Pulse Rate 98 96 Pulse Rate [Pulse Oximeter] Respiratory Rate Blood Pressure Blood Pressure [Le ft Upper Arm] Pulse Oximetry 95 95 94 Oxygen Delivery Me thod Oxygen Flow Rate 09/04/23 21:22 09/04/23 21:30 09/04/23 22:07 Temperature Pulse Rate 91 Pulse Rate [Pulse Oximeter] Respiratory Rate Blood Pressure Blood Pressure [Le ft Upper Arm] Pulse Oximetry 94 96 94 Oxygen Delivery Me thod Nasal Cannula Oxygen Flow Rate 2 09/04/23 22:14 09/04/23 22:15 09/04/23 22:16 Temperature Pulse Rate 88 86 83 Pulse Rate [Pulse Oximeter] Respiratory Rate Blood Pressure 143/56 H Blood Pressure [Le ft Upper Arm] Pulse Oximetry 94 95 95 Oxygen Delivery Me thod Oxygen Flow Rate 09/04/23 22:30 Temperature Pulse Rate 81 Pulse Rate [Pulse Oximeter] Respiratory Rate Blood Pressure Blood Pressure [Le ft Upper Arm] Pulse Oximetry 97 Oxygen Delivery Me thod Oxygen Flow Rate Course Vital Signs Vital signs: Initial Vital Signs Temperature 103.3 F H 09/04/23 19:47 Temperature Source Temporal Artery Scan 09/04/23 19:47 Pulse Rate 111 H 09/04/23 19:47 Respiratory Rate 30 H 09/04/23 19:47 Respiratory Effort Normal 09/04/23 19:47 Respiratory Depth Normal 09/04/23 19:47 Respiratory Pattern Normal 09/04/23 19:47 Blood Pressure 195/113 H 09/04/23 19:47 Blood Pressure Mean 140 H 09/04/23 19:47 Blood Pressure Position Sitting 09/04/23 19:47 Pulse Oximetry 86 L 09/04/23 19:47 Oxygen Delivery Method Room Air 09/04/23 19:47 Vital Signs Temperature 103.3 F H 09/04/23 19:47 Pulse Rate 111 H 09/04/23 19:47 Respiratory Rate 30 H 09/04/23 19:47 Blood Pressure 195/113 H 09/04/23 19:47 Pulse Oximetry 86 L 09/04/23 19:47 Oxygen Delivery Method Room Air 09/04/23 19:47 Temperature 98.1 F 09/04/23 23:20 Pulse Rate 81 09/04/23 22:30 Respiratory Rate 20 09/04/23 23:25 Blood Pressure 133/64 09/04/23 23:20 Pulse Oximetry 99 09/04/23 23:25 Oxygen Delivery Method Nasal Cannula 09/04/23 23:25 Oxygen Flow Rate 2 09/04/23 23:25 Medications Administered Medications: Discontinued Medications Generic Name Dose Route Start Last Admin Trade Name Freq PRN Reason Stop Dose Admin Azithromycin 500 mg 09/04/23 20:00 09/04/23 22:30 Azithromycin 100 Mg/Ml Inj IVPB 09/04/23 20:01 500 mg ONCE ONE Administration Sodium Chloride 1,000 mls @ 1,000 mls/hr 09/04/23 20:00 09/04/23 22:41 0.9 % Sodium Chloride 1000 Ml IV 09/04/23 20:59 Infused .Q1H MIGUEL Infusion Ceftriaxone Sodium 1 gm/ 100 mls @ 200 mls/hr 09/04/23 20:00 09/04/23 22:41 Sodium Chloride IVPB 09/04/23 20:01 Infused ONCE ONE Infusion Ibuprofen 600 mg 09/04/23 20:00 09/04/23 22:30 Ibuprofen 200 Mg Tablet PO 09/04/23 20:01 600 mg ONCE ONE Administration Medical Decision Making Lab Data Labs: Lab Results 09/04/23 09/04/23 09/04/23 Range/Units 20:00 20:01 20:04 WBC 6.99 (4.50-11.00) K/uL RBC 4.26 (4.00-5.20) m/uL Hgb 12.4 (12.0-16.0) gm/dL Hct 37.2 (33.0-51.0) % MCV 87 (80-100) fL MCH 29 (26-34) pg MCHC 33 (32-36) gm/dL RDW Coeff of [place] 13.9 (11.5-15.5) % Plt Count 448 H (140-440) K/uL Neut % (Auto) 85.5 H (42.0-72.0) % Lymph % (Auto) 9.0 L (20-44) % [place] % (Auto) 5.3 (0.0-11.0) % Eos % (Auto) 0.0 (0.0-7.0) % Baso % (Auto) 0.1 (0.0-3.0) % Neut # (Auto) 6.00 (1.7-7.0) K/uL Lymph # (Auto) 0.60 L (0.90-2.90) K/uL [place] # (Auto) 0.40 (0.00-0.90) K/UL Eos # (Auto) 0.00 (0.00-0.50) K/uL Baso # (Auto) 0.01 (0.00-0.30) K/uL Abs Immat Gran (auto) 0.01 (0.00-0.30) K/uL Imm/Tot Granulo (auto) 0.1 % D-Dimer Quant (PE/DVT) (0.00-0.50) ug/ml Sodium 131 L (135-149) mmol/L Potassium 3.6 (3.6-5.1) mmol/L Chloride 95 L (96-114) mmol/L Carbon Dioxide 26 (20-32) mmol/L Anion Gap 10 (7-15) mEq/L BUN 15 (7-30) mg/dL Creatinine 0.6 (0.5-1.5) mg/dL Estimated Creat Clear 52.05 Estimated GFR 96 ml/min Glucose 112 (60-115) mg/dL Lactate 0.9 (0.5-1.9) mmol/L Calcium 9.0 (8.4-10.6) mg/dL Troponin I < 0.01 L (0.01-0.04) ng/mL NT-Pro-B Natriuret Pep 418 pg/mL Procalcitonin 0.26 (<0.50) ng/mL Urine Color (Yellow) Urine Appearance (Clear) Urine pH (5.0-8.5) Ur Specific [place] (1.000-1.030) Urine Protein (Negative) Urine Glucose (UA) (Negative) Urine Ketones (Negative) Urine Blood (Negative) Urine Nitrite (Negative) Urine Bilirubin (Negative) Urine Urobilinogen (0.2-1.0) Ur Leukocyte Esterase (Negative) Urine RBC (0-2) Urine WBC (0-5) Ur Squamous Epith Cells Urine Bacteria (None) Urine L. pneumophilia Ag (Negative) Urine Strep pneumoniae Ag (Negative) SARS-CoV-2 (PCR) POSITIVE SARS-CoV-2 A (Negative) Influenza Type A (PCR) Negative PCR FLU A (Negative) Influenza Type B (PCR) Negative PCR FLU B (Negative) RSV (PCR) Negative PCR RSV (Negative) SARS-CoV-2 Ag (Rapid) (Negative) Lab Acknowledgement Test Added 09/04/23 09/04/23 09/04/23 Range/Units 20:25 21:44 22:00 WBC (4.50-11.00) K/uL RBC (4.00-5.20) m/uL Hgb (12.0-16.0) gm/dL Hct (33.0-51.0) % MCV (80-100) fL MCH (26-34) pg MCHC (32-36) gm/dL RDW Coeff of [place] (11.5-15.5) % Plt Count (140-440) K/uL Neut % (Auto) (42.0-72.0) % Lymph % (Auto) (20-44) % [place] % (Auto) (0.0-11.0) % Eos % (Auto) (0.0-7.0) % Baso % (Auto) (0.0-3.0) % Neut # (Auto) (1.7-7.0) K/uL Lymph # (Auto) (0.90-2.90) K/uL [place] # (Auto) (0.00-0.90) K/UL Eos # (Auto) (0.00-0.50) K/uL Baso # (Auto) (0.00-0.30) K/uL Abs Immat Gran (auto) (0.00-0.30) K/uL Imm/Tot Granulo (auto) % D-Dimer Quant (PE/DVT) 1.61 H (0.00-0.50) ug/ml Sodium (135-149) mmol/L Potassium (3.6-5.1) mmol/L Chloride (96-114) mmol/L Carbon Dioxide (20-32) mmol/L Anion Gap (7-15) mEq/L BUN (7-30) mg/dL Creatinine (0.5-1.5) mg/dL Estimated Creat Clear Estimated GFR ml/min Glucose (60-115) mg/dL Lactate (0.5-1.9) mmol/L Calcium (8.4-10.6) mg/dL Troponin I (0.01-0.04) ng/mL NT-Pro-B Natriuret Pep pg/mL Procalcitonin (<0.50) ng/mL Urine Color Yellow (Yellow) Urine Appearance Clear (Clear) Urine pH 7.0 (5.0-8.5) Ur Specific [place] 1.015 (1.000-1.030) Urine Protein 1+ A (Negative) Urine Glucose (UA) Negative (Negative) Urine Ketones Negative (Negative) Urine Blood 1+ A (Negative) Urine Nitrite Negative (Negative) Urine Bilirubin Negative (Negative) Urine Urobilinogen 0.2 (0.2-1.0) Ur Leukocyte Esterase Negative (Negative) Urine RBC 0-2 (0-2) Urine WBC 0-2 (0-5) Ur Squamous Epith Cells Not Reportable Urine Bacteria None (None) Urine L. pneumophilia Ag L. pneumo POSITIVE A (Negative) Urine Strep pneumoniae Ag S. pneumo Negative (Negative) SARS-CoV-2 (PCR) (Negative) Influenza Type A (PCR) (Negative) Influenza Type B (PCR) (Negative) RSV (PCR) (Negative) SARS-CoV-2 Ag (Rapid) POSITIVE A (Negative) Lab Acknowledgement Test Added Imaging Data Chest x-ray: Radiologist's impression: 1. Patchy bibasilar opacities suspicious for pneumonia. 2. Asymmetric density in the right hilum could be due to lymphadenopathy. 3. Multiple new right lateral rib fractures which have a subacute to chronic appearance. ECG Data Attestation: I personally reviewed and interpreted this ECG as follows: Interpretation: Sinus tachycardia. Rate is 106 beats per minute. There are no specific ST or T-wave abnormalities. Discharge Plan Discharge Patient Disposition: Admitted As Observation Discharge Location: [facility]
[2023-09-04 20:11] LABS: Lactate* 0.9 mmol/L (0.5-1.9)
[2023-09-04 20:22] LABS: Basophils Absolute Auto 0.01 K/uL (0.00-0.30); Basophils Percent Auto 0.1 % (0.0-3.0); Hematocrit 37.2 % (33.0-51.0); Hemoglobin* 12.4 gm/dL (12.0-16.0); Immature Granulocytes Abs Auto 0.01 K/uL (0.00-0.30); Immature Granulocytes Pct Auto 0.1 %; Mean Corpuscular HGB Conc 33 gm/dL (32-36); Mean Corpuscular Hemoglobin 29 pg (26-34); Mean Corpuscular Volume 87 fL (80-100); Monocytes Percent Auto 5.3 % (0.0-11.0); Neutrophils Percent Auto 85.5 % (42.0-72.0); Platelet Count* 448 K/uL (140-440); RDW Coefficient of Variation % 13.9 % (11.5-15.5); Red Blood Count 4.26 m/uL (4.00-5.20); White Blood Count* 6.99 K/uL (4.50-11.00)
[2023-09-04 20:23] LABS: Slide Review Reflex No
--- OUTSIDE RECORDS SUMMARY | 2023-09-04 20:28 | XMS_ITS ---
Author Name Unknown Organization [facility] Address [address] [place] [address] Care Team Providers Care Billboard Poster Helper Name Role Phone Unavailable Unavailable Unavailable Surgery Details Not on file Complications Check Surgery Details section. Procedure Estimated Blood Loss Check Surgery Details section. Procedure Findings Check Surgery Details section. Procedure Specimens Taken Check Surgery Details section.
--- OUTSIDE RECORDS SUMMARY | 2023-09-04 20:28 | XMS_ITS | Encounter Summary ---
Author Name Unknown Organization [facility] Address [address] [place] [address] Care Team Providers Care Sexer Name Role Phone Elsewhere, Pcp Primary Care Provider Unavailabl e Encounter Details Date Type Department Care Team (Late st Contact Info) Description 10/26/2022 Clinical Communication Division of Thoracic Surgery in [place], [place] [address] [place] [address] Susan Jarrett, RYesikaN. Social History Tobacco Use Types Packs/Day Years Used Date Smoking Tobacco: Never Smokeless Tobacco: Never Comments:I have never used t obacco. Alcohol Use Standard Drinks/Week Comments Never 0 (1 standard drink = 0.6 oz pur e alcohol) Humiliation, Afraid, Rape, and Kick questionnair e Answer Date Recorded Within the last year, have y ou been afraid of your partner or ex-partner? No 06/04/2022 Within the last year, have y ou been humiliated or emotionally abused in other ways by your partner or ex-partner? No Within the last year, have y ou been kicked, hit, slapped, or otherwise physically hurt by your partner or ex-partner? No 06/04/2022 Within the last year, have y ou been raped or forced to have any kind of sexual activity by your partner or ex-partner? No 06/04/2022 Social Connection and Isolation Panel [NHANES] A nswer Date Recorded In a typical week, how many times do you talk on the phone with family, friends, or neighbors? Three times a week 06/04/2022 How often do you get togethe r with friends or relatives? Patient declined 06/04/2022 How often do you attend chur or mandaen services? Never 06/04/2022 Do you belong to any clubs o r organizations such as taoism groups, unions, fraternal or athletic groups, or school groups? No 06/04/2022 How often do you attend meet ings of the clubs or organizations you belong to? Never 06/04/2022 Are you , , di vorced, , never , or living with a partner? 06/04/2022 AUDIT-C Answer Date Recorded Q1: How often do you have a drink containing alcohol? Monthly or less 06/04/2022 Q2: How many drinks containi ng alcohol do you have on a typical day when you are drinking? Patient does not drink Q3: How often do you have si x or more drinks on one occasion? Never 06/04/2022 Overall Financial Resource Strain (CARDIA) Answe r Date Recorded How hard is it for you to pa y for the very basics like food, housing, medical care, and heating? Not very hard 06/04/2022 [facility] - Occupational Stress Questionnaire Answer Date Recorded Do you feel stress - tense, restless, nervous, or anxious, or unable to sleep at night because your mind is troubled all the time - these days? To some extent 06/04/2022 Exercise Vital Sign Answer Date Recorde d On average, how many days pe r week do you engage in moderate to strenuous exercise (like a brisk walk)? 7 days 06/04/2022 On average, how many minutes do you engage in exercise at this level? 30 min 06/04/2022 Hunger Vital Sign Answer Date Recorded Within the past 12 months, y ou worried that your food would run out before you got the money to buy more. Never true 06/04/20 22 Within the past 12 months, t he food you bought just didn't last and you didn't have money to get more. Never true 06/04/2022 PRAPARE - Transportation Answer Date Re corded In the past 12 months, has l ack of transportation kept you from medical appointments or from getting medications? No 05/26 In the past 12 months, has l ack of transportation kept you from meetings, work, or from getting things needed for daily living? No 06/04/2022 Housing Stability Vital Sign Answer Edwin e Recorded In the last 12 months, was t here a time when you were not able to pay the mortgage or rent on time? No 06/04/2022 In the last 12 months, how many places have you lived? 1 06/04/2022 In the last 12 months, was t here a time when you did not have a steady place to sleep or slept in a halfway (including now)? No 06/04/2022 Nutrition Answer Date Recorded Nutrition: EVOO Fat Source Yes 06/04 On average, how many serving s of fruits and vegetables do you eat per day (serving size is equal to 1 cup or approximately the size of a tennis ball)? 4-5 06/04/2022 Dental Answer Date Recorded Dental: Regular Dentist Yes 06/04/20 Employment Answer Date Recorded Employment status Retired 06/04/2022 Education Answer Date Recorded What is the highest level of school you have completed or the highest degree you have received? Master's degree (e.g., MA, MS, Milly, MEd, MRI SUPERVISOR, MADELYN) 06/04/2022 Sex and Gender Information Value Date Recorded Sex Assigned at Female 06/04/2022 4:58 PM CDT Gender Identity Female 06/04/2022 4:58 PM CDT Sexual Orientation Straight 06/04/2022 4: 58 PM CDT documented as of this encounter Miscellaneous Notes * Addendum Note - Suly Mansfield APRN, C.N.P. - 10/26/2022 10:09 AM PSYCHOLOGY INSTRUCTOR Addended by: SULY MANSFIELD on: 10/26/2022 10:09 AM Modules accepted: Orders HOLOGY INSTRUCTOR * Telephone Encounter - Susan Jarrett R.N. - 10/26/2022 9:43 AM PSYCHOLOGY INSTRUCTOR PLAN The following information was provided: Patient Keke called called in returning a call from our office. We have been trying to get in touch with her to discuss her pain and medication for it. I discussed with her what she was currently doing for her pain management and what a potential plan going forward would be. Recall she had a aryan clamshell with Dr. Claudio on August 22. She states that this time she is taking 2 doses of pregabalin a day, with Tylenol or ibuprofen usually once during the day as well. She indicated that she only has 1 more dose of the pregabalin left for this morning and will be out this evening. We discussed that it would be reasonable to continue doing twice a day through the weekend, and then begin the taper. The taper would be her taking it once a day, and then using ibuprofen and/or Tylenol for the residual pain. We discussed giving her enough tablets to complete this next week with the contingency that we would touch base again towards the end of next week. This will all be discussed with Suly Mansfield NP. I anticipate we would be able to provide her with 12 tablets to get through the weekend and next week. I confirmed her pharmacy with her and let her know that we would send a messagethrough the portal once we had sent the prescription. She would no further questions at this time and was appreciative of the call. Information/Education: patient/caller able to teach back The following references were used: nursing clinical judgement HOLOGY INSTRUCTOR documented in this encounter Plan of Treatment Upcoming Encounters Date Type Department Care Team (Latest Contact Info) Description 09/18/2023 10:15 AM PSYCHOLOGY INSTRUCTOR Clinical Communication Virtual Review in [place], [place] [address] [place] [address] 09/19/2023 8:10 AM PSYCHOLOGY INSTRUCTOR Appointment Department of Laboratory Medicine and Pathology, [facility], in [address] [phone] Suly Mansfield APRN, C.NLuz Maria, M.S.N. [address] [place] [phone] 09/19/2023 10:15 AM PSYCHOLOGY INSTRUCTOR Appointment Department of Radiology, [facility], in [place], [place] [address] [place] [phone] Suly Mansfield APRN, C.N.P., M.S.N. [address] [place] [phone] 09/19/2023 1:00 PM PSYCHOLOGY INSTRUCTOR Office Visit Division of Thoracic Surgery in [place], [place] [address] [place] [phone] Suly Mansfield APRN, C.NLuz Maria, M.S.N. [address] [place] [phone] documented as of this encounter Visit Diagnoses Not on filedocumented in this encounter Care Teams Sexer Relationship Specialty Start Date End Date Elsewhere, Pcp PCP - General Family Medicine 01/03/18 documented as of this encounter
--- OUTSIDE RECORDS SUMMARY | 2023-09-04 20:28 | XMS_ITS | Referral Summary ---
Author Name Unknown Organization [facility] Address [address] [place] [address] Care Team Providers Care Public Interviewer Name Role Phone Elsewhere, Pcp Primary Care Provider Unavailabl e Source Comments Patient records contain information from all sites at [facility]. For routine questions regarding patient records, call [phone] during business hours, M-F 8:00 AM - 5:00 PM Central Time. Record requests for emergency care only can be directed to [phone] at any time.[facility] Encounters Date Type Department Care Team Description 07/08/2023 Orders Only Division of Thoracic Surgery in [place], [place] [address] [place] [address] Susan Jarrett R.N. 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 As of 08/17/2022, has not been taking for awhile, but may restart and would like to keep on medication list for now. 0 06/19/2022 Active cholecalciferol (VITAMIN D3) 50 mcg (2,000 Unit) tablet Take 2,000 Units by mouth daily. 0 03/14/2022 Active estradioL (ESTRACE) 1 mg tablet Take 0.5 mg by mouth every other day. Takes after dinner every other day. 0 03/14/2022 Active sulfuric acid-sulfonated phenolics (DEBACTEROL) 30-50 % swab Apply 1 each topically as needed (canker sores). Does not use often, but would like to keep on medication list in case needed. 0 03/14/2022 Active ZINC ORAL Take 30 mg by mouth 3 (three) times a week. Wgsubu-Uobjdrofg-Pc iday 0 03/14/2022 Active B complex-vitamins (BALANCE B-50) tablet Take 1 tablet by mouth once a week. MONDAYS 0 Active glucosa merchant 2KCl/chondroitin merchant (GLUCOSAMINE SULF-CHONDROITIN ORAL) Take 2 tablets by mouth daily after dinner. Glucosamine 1500 mg/Chondroitin 1200 mg/tablet 0 Active multivitamin-minera ls-lutein (CENTURY MATURE) tablet Take 1 tablet by mouth daily. 0 Active calcium-vitamin D3-vitamin K (VIACTIV) 650 mg-12.5 mcg (500 Unit)-40 mcg tablet,chewable per chewable tablet Chew 1 tablet 2 (two) times a day with meals. 0 Active ascorbic acid, vitamin C, (VITAMIN C) 1,000 mg tablet Take 1,000 mg by mouth daily. 0 Active peg 400/hypromellose/gl ycerin (DRY EYE RELIEF OPHT) Administer 1-2 drops into both eyes as needed (dry eyes). 0 Active minoxidiL 5 % solution Apply 1 application topically at bedtime. Apply to scalp 0 Active pseudoephedrine (SUDAFED) 30 mg tablet Take 30 mg by mouth as needed for congestion. 0 Active acetaminophen (TYLENOL) 500 mg tablet Take 1-2 tablets (500-1,000 mg total) by mouth every 6 (six) hours as needed (pain). 0 08/27/2022 Active ibuprofen (ADVIL,MOTRIN) 600 mg tablet Take 1 tablet (600 mg total) by mouth every 6 (six) hours as needed for pain (pain). 50 tablet 0 08/27/2022 Active Additional Information Patient not taking.Reported on 05/01/2023 omeprazole (PriLOSEC) [address] capsule Take 20 mg by mouth every morning before breakfast. 0 03/27/2023 Active triamcinolone (KENALOG) 0.1 % dental paste TAKE 1 APPLICATION 3 TIMES A DAY BY DENTAL ROUTE NEEDED FOR 10 DAYS. 0 Active dexAMETHasone 0.5 mg/5 mL elixir See Admin Instructions. 0 Active DOCUSATE SODIUM ORAL Take 200 mg by mouth 2 (two) times a day. 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 Alcohol Use Standard Drinks/Week Comments Never 0 [...] How often do you attend chur or anglican services? Never 06/04/2022 Do you belong to any clubs o r organizations such as anabaptist groups, unions, fraternal or athletic groups, or [...] care, and heating? Not very hard 06/04/2022 [facility] [place] of Occupat ional Health - Occupational Stress [...] place to sleep or slept in a senior living (including now)? No 06/04/2022 Nutrition Answer Date [...] Master's degree (e.g., MA, MS, Milly, MEd, TECHNICAL SUPPORT TECHNICIAN, MADELYN) 06/04/2022 Sex and Gender Information Value Date Recorded Sex Assigned at Female 06/04/2022 4:58 PM CDT Gender Identity Female 06/04/2022 4:58 PM CDT Sexual Orientation Straight 06/04/2022 4: 58 PM CDT Last Filed Vital Signs Vital Sign Reading Time Taken Comments Blood Pressure 125/53 08/27/2022 10:15 AM MUSIC SOUND LIGHT TECHNICIAN Pulse 82 08/27/2022 10:15 AM MUSIC SOUND LIGHT TECHNICIAN Temperature 36.8 ??C (98.2 ??F) 08/27/2022 10:[address] Respiratory Rate 16 08/27/2022 10:15 AM MUSIC SOUND LIGHT TECHNICIAN Oxygen Saturation 98% 08/27/2022 10:15 AM MUSIC SOUND LIGHT TECHNICIAN Inhaled Oxygen Concentration - - Weight 67.6 kg (149 lb 0.5 oz) 08/26/2022 9:15 A M MUSIC SOUND LIGHT TECHNICIAN Height 173.9 cm (5' 8.47) 08/22/2022 7:06 AM CS T Body Mass Index 22.35 08/22/2022 7:06 AM MUSIC SOUND LIGHT TECHNICIAN Plan of Treatment Upcoming Encounters Date Type Department Care Team (Latest Contact Info) Description 09/18/2023 10:15 AM MUSIC SOUND LIGHT TECHNICIAN Clinical Communication Virtual Review in [place], [place] [address] [place] [address] 09/19/2023 8:10 AM MUSIC SOUND LIGHT TECHNICIAN Appointment Department of Laboratory Medicine and Pathology, [facility], in [place], [place] [address] [place] [address] Radha Keen APRN, C.N.P., M.S.N. [address] [place] [phone] 09/19/2023 10:15 AM MUSIC SOUND LIGHT TECHNICIAN Appointment Department of Radiology, [facility], in [place], [place] [address] [place] [address] Radha Keen APRN, C.N.P., M.S.N. [address] [place] [phone] 09/19/2023 1:00 PM MUSIC SOUND LIGHT TECHNICIAN Office Visit Division of Thoracic Surgery in [place], [place] [address] [place] [address] Radha Keen APRN, C.N.P., M.S.N. [address] [place] [phone] Medical Devices Implanted Type Area Taproom Attendant Device Identifier Shelf Expiration Date Model / Serial / Lot Clp Hrzn Ti 6 Clp Lg Orng - [id number] Implanted:Qty: 1 on 08/22/2022 by Rosaura Claudio M.D., Ph.D. at [facility] Hardware e.g. pins/screws/r ods [employer] [id number] 04/16/2027 [id number] / / [id number] Ocular Lens Ocular Lens Eye Orthopedic Other Orthopedic Other Wrist Advance Directives For more information, please contact: [phone] Documents on File Type Date Recorded Patient Optics Engineer Expl anation Advance Directives 08/22/2022 9:15 AM Rea PhillipsSelenaskyla Albarosvetlana Phillips HCPOA/ADVOCATE/AGENT/R EPRESENTATIVE/SURROGAT E Latest Code Status on File Code Status Date Activated Date Inactivated Comments Full Code 08/22/2022 3:36 PM 08/27/2022 2:15 PM Question Answer Comments Full Code: Not Discussed Due to: Patient not available Healthcare Agents on File Name Relationship Healthcare Agent Relationship Communication Rea Sousa Sister Health Care Agent [email or web address] Jacqueline Leavitt Health Care Agent [email or web address] Selenaskyla Leavitt First Altern ate Health Care Agent Care Teams Public Interviewer Relationship Specialty Start Date End Date Elsewhere, Pcp PCP - General Family Medicine 01/03/18
--- OUTSIDE RECORDS SUMMARY | 2023-09-04 20:28 | XMS_ITS | Encounter Summary ---
Author Name Unknown Organization [facility] Address [address] [place] [address] Care Team Providers Care Home Care Provider Name Role Phone Elsewhere, Pcp Primary Care Provider Unavailabl e Reason for Referral * Outpatient (Routine) - Authorized Specialty Diagnoses / Procedures Referred By Joe allison Referred To Contact Thoracic Surgery Radha Keen APRN, C.N.PYesika, M.S.N. [address] [place] [phone] [facility] Referral ID Status Reason Start Date Expiration Date V isits Requested Visits Authorized [id number] Authorized 07/08/2023 07/07/2026 1 1 Scheduling Instructions With Radha Keen NP after CT scan TTING OFFICER * MRI/CAT/PET Scan (Routine) - Pending Review Specialty Diagnoses / Procedures Referred By Joe t Referred To Contact Radiology Diagnoses Thymoma Procedures CT Chest with IV Contrast Radha Keen APRN, C.N.PYesika, M.S.N. [address] [place] [phone] [place] [facility] Referral ID Status Reason Start Date Expiration Date V isits Requested Visits Authorized [id number] Pending Review 07/08/2023 07/07/2024 1 1 TTING OFFICER Encounter Details Date Type Department Care Team (Late st Contact Info) Description 07/08/2023 Orders Only Division of Thoracic Surgery in [place], [place] [address] [place] [address] Susan Jarrett, RYesikaNYesika Thymoma (Primary Dx) Social History Tobacco Use Types Packs/Day Years [...] How often do you attend chur or protestant services? Never 06/04/2022 Do you belong to any clubs o r organizations such as episcopal groups, unions, fraternal or athletic groups, or [...] care, and heating? Not very hard 06/04/2022 [facility] [place] of Occupat ional Health - Occupational Stress [...] place to sleep or slept in a detention (including now)? No 06/04/2022 Nutrition Answer Date [...] degree you have received? Master's degree (e.g., DICK, MS, Milly, MEd, FORMING DEPARTMENT END FINDER, MADELYN) 06/04/2022 Sex and Gender Information Value Date Recorded Sex Assigned at Female 06/04/2022 4:58 PM CDT Gender Identity Female 06/04/2022 4:58 PM CDT Sexual Orientation Straight 06/04/2022 4: 58 PM CDT documented as of this encounter Plan of Treatment Upcoming Encounters Date Type Department Care Team (Latest Contact Info) Description 09/18/2023 10:15 AM ADMITTING OFFICER Clinical Communication Virtual Review in [place], [place] [address] [place] [address] 09/19/2023 8:10 AM ADMITTING OFFICER Appointment Department of Laboratory Medicine and Pathology, [facility] in [address] [phone] Radha Keen APRN, C.N.P., M.S.N. [address] [place] [phone] 09/19/2023 10:15 AM ADMITTING OFFICER Appointment Department of Radiology, [facility] in [address] [phone] Radha Keen APRN, C.N.P., M.S.N. [address] [place] [phone] 09/19/2023 1:00 PM ADMITTING OFFICER Office Visit Division of Thoracic Surgery in [place], [place] 200 [place] [address] Radha Keen APRN, C.N.P., M.S.N. 200 [place] [address] Scheduled Orders Name Type Priority Associated Diagnoses Orde r Schedule Creatinine with Estimated GFR Lab Routine Thymoma Expected: 09/18/2023 (Approximate), Expires: 10/08/2024 CT Chest with IV Contrast Imaging RAD - Routine (most inpatients and all outpatients) Thymoma Expected: 09/19/2023 (Approximate), Expires: 07/08/2024 Scheduled Referrals Name Type Priority Associated Diagnoses Orde r Schedule Thoracic Surgery office visit (clinic) Outpatient Referral Routine Expected: 09/19/2023 (Approximate), Expires: 10/08/2024 documented as of this encounter Visit Diagnoses Diagnosis Thymoma- Primary documented in this encounter Care Teams Home Care Provider Relationship Specialty Start Date End Date Elsewhere, Pcp PCP - General Family Medicine 01/03/18 documented as of this encounter
--- OUTSIDE RECORDS SUMMARY | 2023-09-04 20:28 | XMS_ITS | Encounter Summary ---
Author Name Unknown Organization [facility] Address [address] [place] [phone] Care Team Providers Care Adult Crossing Guard Name Role Phone Elsewhere, Pcp Primary Care Provider Unavailabl e Reason for Visit * Reason Onset Date Comments Pre-visit Intake 05/01/2023 Encounter Details Date Type Department Care Team (Latest Contact Info) Description 05/01/2023 12:00 PM CDT Clinical Communication Virtual Review in [place], [place] 200 [place] [address] Pre-visit Intake Social History Tobacco Use Types Packs/Day Years [...] How often do you attend chur or islam services? Never 06/04/2022 Do you belong to any clubs o r organizations such as confucianism groups, unions, fraternal or athletic groups, or [...] care, and heating? Not very hard 06/04/2022 [facility] of Occupat ional Health - Occupational Stress [...] money to buy more. Never true 06/04/20 Within the past 12 months, t he [...] place to sleep or slept in a fdc (including now)? No 06/04/2022 Nutrition Answer Date [...] Master's degree (e.g., MA, MS, Milly, MEd, TOP EXECUTIVE, MADELYN) 06/04/2022 Sex and Gender Information Value Date Recorded Sex Assigned at Female 06/04/2022 4:58 PM CDT Gender Identity Female 06/04/2022 4:58 PM CDT Sexual Orientation Straight 06/04/2022 4: 58 PM CDT documented as of this encounter Plan of Treatment Upcoming Encounters Date Type Department Care Team (Latest Contact Info) Description 09/18/2023 10:15 AM PRESS SET UP PERSON Clinical Communication Virtual Review in [address] [address] 09/19/2023 8:10 AM PRESS SET UP PERSON Appointment Department of Laboratory Medicine and Pathology, [facility] in [place], [place] [address] [place] [address] Radha Keen APRN, C.NLuz Maria, M.S.N. [address] [place] [phone] 09/19/2023 10:15 AM PRESS SET UP PERSON Appointment Department of Radiology, [facility] in [place], [place] [address] [place] [address] Radha Keen APRN, C.N.P., M.S.N. [address] [place] [phone] 09/19/2023 1:00 PM PRESS SET UP PERSON Office Visit Division of Thoracic Surgery in [place], [place] [address] [place] [phone] Radha Keen APRN, C.NYesikaP., M.S.N. [address] [place] [phone] documented as of this encounter Visit Diagnoses Not on filedocumented in this encounter Care Teams Adult Crossing Guard Relationship Specialty Start Date End Date Elsewhere, Pcp PCP - General Family Medicine 01/03/18 documented as of this encounter
--- OUTSIDE RECORDS SUMMARY | 2023-09-04 20:28 | XMS_ITS | Encounter Summary ---
Author Name Unknown Organization [facility] Address [address] [place] [address] Care Team Providers Care Slot Operations Director Name Role Phone Elsewhere, Pcp Primary Care Provider Unavailabl e Reason for Visit * Reason Comments Med Refill Encounter Details Date Type Department Care Team (Late st Contact Info) Description 10/26/2022 Refill Division of Thoracic Surgery in [place], [place] [address] [place] [phone] Radha Keen APRN, C.N.P., M.S.N. [address] [place] [phone] Med Refill Social History Tobacco Use Types Packs/Day Years [...] How often do you attend chur or denominational services? Never 06/04/2022 Do you belong to any clubs o r organizations such as zoroastrian groups, unions, fraternal or athletic groups, or [...] care, and heating? Not very hard 06/04/2022 [facility] [place] [facility] - Occupational Stress Questionnaire Answer [...] place to sleep or slept in a custodial (including now)? No 06/04/2022 Nutrition Answer Date [...] Master's degree (e.g., MA, MS, Milly, MEd, FITNESS ASSISTANT, MADELYN) 06/04/2022 Sex and Gender Information Value Date Recorded Sex Assigned at Female 06/04/2022 4:58 PM CDT Gender Identity Female 06/04/2022 4:58 PM CDT Sexual Orientation Straight 06/04/2022 4: 58 PM CDT documented as of this encounter Plan of Treatment Upcoming Encounters Date Type Department Care Team (Latest Contact Info) Description 09/18/2023 10:15 AM GASOLINE ENGINE INSPECTOR Clinical Communication Virtual Review in [place], [place] [address] [place] [address] 09/19/2023 8:10 AM GASOLINE ENGINE INSPECTOR Appointment Department of Laboratory Medicine and Pathology, [facility] in [place], [place] [address] [place] [phone] Radha Keen APRN, Sandip.N.P., M.S.N. [address] [place] [phone] 09/19/2023 10:15 AM GASOLINE ENGINE INSPECTOR Appointment Department of Radiology, [facility], in [place], [place] [address] [place] [phone] Radha Keen APRN, C.N.P., M.S.N. [address] [place] [phone] 09/19/2023 1:00 PM GASOLINE ENGINE INSPECTOR Office Visit Division of Thoracic Surgery in [address] [phone] Radha Keen APRN, C.N.P., M.S.N. [address] [place] [phone] documented as of this encounter Visit Diagnoses Not on filedocumented in this encounter Care Teams Slot Operations Director Relationship Specialty Start Date End Date Elsewhere, Pcp PCP - General Family Medicine 01/03/18 documented as of this encounter
--- OUTSIDE RECORDS SUMMARY | 2023-09-04 20:28 | XMS_ITS | Encounter Summary ---
Author Name Unknown Organization [facility] Address [address] [place] [address] Care Team Providers Care Dye Machine Tender Name Role Phone Elsewhere, Pcp Primary Care Provider Unavailabl e Encounter Details Date Type Department Care Team (Latest Contact Info) Description 04/18/2023 Clinical Communication Department of Cardiovascular Surgery in [place], [place] [address] [place] [phone] Rosaura Claudio M.D., Ph.D. [address] [place] [phone] Social History Tobacco Use Types Packs/Day Years [...] How often do you attend chur or shinto services? Never 06/04/2022 Do you belong to any clubs o r organizations such as scientologist groups, unions, fraternal or athletic groups, or [...] care, and heating? Not very hard 06/04/2022 [facility] [place] of Occupat ional Health - Occupational Stress [...] place to sleep or slept in a assisted (including now)? No 06/04/2022 Nutrition Answer Date [...] Master's degree (e.g., MA, MS, Milly, MEd, CNC SET UP OPERATOR, MADELYN) 06/04/2022 Sex and Gender Information Value Date Recorded Sex Assigned at Female 06/04/2022 4:58 PM CDT Gender Identity Female 06/04/2022 4:58 PM CDT Sexual Orientation Straight 06/04/2022 4: 58 PM CDT documented as of this encounter Plan of Treatment Upcoming Encounters Date Type Department Care Team (Latest Contact Info) Description 09/18/2023 10:15 AM RADIATION PROTECTION SPECIALIST Clinical Communication Virtual Review in [place], [place] 200 [place] [address] 09/19/2023 8:10 AM RADIATION PROTECTION SPECIALIST Appointment Department of Laboratory Medicine and Pathology, [facility] in [address] [phone] Radha Keen APRN, C.NYesiakPYesika, M.S.N. [address] [place] [phone] 09/19/2023 10:15 AM RADIATION PROTECTION SPECIALIST Appointment Department of Radiology, [facility] in [address] [phone] Radha Keen APRN, C.NLuz Maria, M.S.N. [address] [place] [phone] 09/19/2023 1:00 PM RADIATION PROTECTION SPECIALIST Office Visit Division of Thoracic Surgery in [address] [phone] Radha Keen APRN, C.NYesikaP., M.S.N. [address] [place] [phone] documented as of this encounter Visit Diagnoses Not on filedocumented in this encounter Care Teams Dye Machine Tender Relationship Specialty Start Date End Date Elsewhere, Pcp PCP - General Family Medicine 01/03/18 documented as of this encounter
--- OUTSIDE RECORDS SUMMARY | 2023-09-04 20:28 | XMS_ITS | Clinical Summary ---
Author Name Unknown Organization [facility] Address [address] [place] [address] Care Team Providers Care Supercharge Repair Supervisor Name Role Phone Elsewhere, Pcp Primary Care Provider Unavailabl e Source Comments Patient records contain information from all sites at [facility]. For routine questions regarding patient records, call [phone] during business hours, M-F 8:00 AM - 5:00 PM Central Time. Record requests for emergency care only can be directed to [phone] at any time.[facility] Allergies Active Allergy Reactions Criticality Noted Date [...] by mouth 3 (three) times a week. Beezah-Jzmjlwkif-Ri iday 0 03/14/2022 Active B complex-vitamins (BALANCE [...] Overview: Added automatically from request for surgery [id number] Encounters Date Type Department Care Team Description 07/08/2023 Orders Only Division of Thoracic Surgery in [place], [place] [address] [place] [phone] Susan Jarrett R.N. Thymoma (Primary Dx) from Last 3 Months Immunizations Name Administration Dates Next Due PCV13 01/03/2018 Family History Medical History Relation Name Comments Bladder cancer Father Antonio Coronary artery disease Father Antonio atri al fibrillation Hypertension Father Antonio Ovarian cancer Mother Sandra Coronary artery disease Paternal Grandfather Sandra Heart attack Paternal Grandfather Sandra Parkinson disease Paternal Grandfather Sandra Thyroid disease Sister Rea Relation Name Status Comments Father Antonio Mother Sandra Paternal Grandfather Sandra Sister Rea Social History Tobacco Use Types Packs/Day Years [...] 06/04/2022 How often do you attend chur ch or confucianist services? Never 06/04/2022 Do you belong to any clubs o r organizations such as adventism groups, unions, fraternal or athletic groups, or [...] care, and heating? Not very hard 06/04/2022 [facility] - Occupational [...] place to sleep or slept in a group home (including now)? No 06/04/2022 Nutrition Answer Date [...] Master's degree (e.g., MA, MS, Milly, MEd, REIMBURSEMENT SPECIALIST, MADELYN) 06/04/2022 Sex and Gender Information Value Date Recorded Sex Assigned at Female 06/04/2022 4:58 PM CDT Gender Identity Female 06/04/2022 4:58 PM CDT Sexual Orientation Straight 06/04/2022 4: 58 PM CDT Last Filed Vital Signs Vital Sign Reading Time Taken Comments Blood Pressure 125/53 08/27/2022 10:15 AM FLIGHT LINE SERVICE ATTENDANT Pulse 82 08/27/2022 10:15 AM FLIGHT LINE SERVICE ATTENDANT Temperature 36.8 ??C (98.2 ??F) 08/27/2022 10:[address] Respiratory Rate 16 08/27/2022 10:15 AM FLIGHT LINE SERVICE ATTENDANT Oxygen Saturation 98% 08/27/2022 10:15 AM FLIGHT LINE SERVICE ATTENDANT Inhaled Oxygen Concentration - - Weight 67.6 kg (149 lb 0.5 oz) 08/26/2022 9:15 A M FLIGHT LINE SERVICE ATTENDANT Height 173.9 cm (5' 8.47) 08/22/2022 7:06 AM CS T Body Mass Index 22.35 08/22/2022 7:06 AM FLIGHT LINE SERVICE ATTENDANT Plan of Treatment Upcoming Encounters Date Type Department Care Team (Latest Contact Info) Description 09/18/2023 10:15 AM FLIGHT LINE SERVICE ATTENDANT Clinical Communication Virtual Review in [place], [place] [address] [place] [address] 09/19/2023 8:10 AM FLIGHT LINE SERVICE ATTENDANT Appointment Department of Laboratory Medicine and Pathology, [facility] in [place], [place] [address] [place] [phone] Radha Keen APRN, C.N.P., M.S.N. [address] [place] [phone] 09/19/2023 10:15 AM FLIGHT LINE SERVICE ATTENDANT Appointment Department of Radiology, [facility] in [place], [place] [address] [place] [phone] Radha Keen APRN, C.NCasandra., M.S.N. [address] [place] [phone] 09/19/2023 1:00 PM FLIGHT LINE SERVICE ATTENDANT Office Visit Division of Thoracic Surgery in [address] [phone] Radha Keen APRN, C.N.P., M.S.N. [address] [place] [phone] Health Maintenance Due Date Last Done Comments Bone Density Scan (Osteoporo sis Screen) 1952 CT Colonography 1952 Cologuard 1952 Colonoscopy 1952 Colorectal Cancer Screening 1952 FIT 1952 Hepatitis C Screening 1950 Mammogram 1952 Zoster Vaccines (1 of 2) 2002 Depression Screening (Annual PHQ-2) 08/26/2023 Fall Risk Screen (Annual) 08/26/2023 Fasting Glucose for Diabetes Screening 08/25/2025 08/25/2022, 08/22/2022, 08/21/2022, Additional history exists DTaP,Tdap,and Td Vaccines (4 - Td or Tdap) 05/07/2033 05/07/2023, 06/23/2012, 09/05/2010 Pneumococcal vaccine (65+ years) Completed 04/08/2020, 02/03/2019, 01/03/2018 Influenza Vaccine Completed 06/28/2023, , 06/09/2021, Additional history exists COVID-19 Vaccine Completed 07/23/2023, 06/2023, 08/07/2022, Additional history exists Medical Devices Implanted Type Area Director Of Strategic Initiatives Device Identifier Shelf Expiration Date Model / Serial / Lot Clp Hrzn Ti 6 Clp Lg Orng - [id number] Implanted:Qty: 1 on 08/22/2022 by Rosaura Claudio M.D., Ph.D. at [facility] Hardware e.g. pins/screws/r ods Instagram [id number] 04/16/2027 [id number] / / [id number] Ocular Lens Ocular Lens Eye Orthopedic Other Orthopedic Other Wrist Advance Directives For more information, please contact: [phone] Documents on File Type Date Recorded Patient Fire Extinguisher Technician Expl anation Advance Directives 08/22/2022 9:15 AM Rea Phillips HCPOA/ADVOCATE/AGENT/R EPRESENTATIVE/SURROGAT E Latest Code Status on File Code Status Date Activated Date Inactivated Comments Full Code 08/22/2022 3:36 PM 08/27/2022 2:15 PM Question Answer Comments Full Code: Not Discussed Due to: Patient not available Healthcare Agents on File Name Relationship Healthcare Agent Relationship Communication Rea Sousa Sister Health Care Agent [email or web address] Abraham Jacqueline Leavitt Health Care Agent [email or web address] Selenaskyla Leavitt First Altern ate Health Care Agent Care Teams Supercharge Repair Supervisor Relationship Specialty Start Date End Date Elsewhere, Pcp PCP - General Family Medicine 01/03/18
--- OUTSIDE RECORDS SUMMARY | 2023-09-04 20:28 | XMS_ITS | Encounter Summary ---
Author Name Unknown Organization [facility] Address [address] [place] [id number] Care Team Providers Care Milanese Knitting Machine Operator Name Role Phone Elsewhere, Pcp Primary Care Provider Unavailabl e Reason for Visit * Outpatient (Routine) - Closed Specialty Diagnoses / Procedures Referred By Joe allison Referred To Contact Thoracic Surgery Abril Nash P.A.-C. [address] [place] [phone] [facility] Referral ID Status Reason Start Date Expiration Date Visits Re quested Visits Authorized [id number] Closed 10/30/2022 10/29/2025 1 1 Encounter Details Date Type Department Care Team (Late st Contact Info) Description 05/02/2023 1:00 PM CDT Office Visit Division of Thoracic Surgery in [place], [place] [address] [place] [phone] Radha Keen APRN, C.N.P., M.S.N. [address] [place] [phone] Thymoma (Primary Dx) Social History Tobacco Use [...] often do you attend chur ch or latter day services? Never 06/04/2022 Do you belong to any clubs o r organizations such as alevism groups, unions, fraternal or athletic groups, or [...] care, and heating? Not very hard 06/04/2022 [facility] - Occupational Stress [...] Master's degree (e.g., MA, MS, Milly, MEd, WRITER TECHNICAL PUBLICATIONS, MADELYN) 06/04/2022 Sex and Gender Information Value Date Recorded Sex Assigned at Female 06/04/2022 4:58 PM CDT Gender Identity Female 06/04/2022 4:58 PM CDT Sexual Orientation Straight 06/04/2022 4: 58 PM CDT documented as of this encounter Progress Notes * Radha Keen APRN, C.N.P., M.S.N. - 05/02/2023 1:00 PM CDT SUBJECTIVE Alexia Phillips is a 72 y.o. female who presents today for a thymoma surveillance visit. Dr. Claudio took her to the operating room on August 14, 2022 for a aryan clamshell mediastinal mass resection. 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 Marginsnegative by 1 mm. It was encapsulated without invasion of surrounding tissue. She was discharged from the hospital on August 27 after an uneventful postoperative course. She feels like she has recovered from her surgery. Unfortunately, she was feeling epigastric pain and was evaluated in March with an endoscopy that showed ulceration. She was started on six weeks ofPPI and will be re-evaluated endoscopically in May. She has also had waxing and waning stomatitis in recent months. This got significantly worse after her endoscopy. OBJECTIVE EXAM: CT CHEST WITH IV CONTRAST COMPARISON: Outside chest CT 05/12/2022 FINDINGS: Since 08/11/2022, interval postoperative changes related to resection of a large thymoma involving the prevascular mediastinum and right hemithorax. No discrete soft tissue density nodularity in the prevascular mediastinum. Small foci of fluid density along the right pleural surfaces, for example paramediastinal pleura at the level of the ascending aorta on , anterolateral pleural surface of , overlying the posterior right hemidiaphragm inferiorly on and posterior costophrenic sulcus on . An 8 x 6 mm solid noncalcified pulmonary nodule along the right minor fissure may have been present on the preoperative study, however is challenging to accurately compare and was previously immediately adjacent to the mass. New sub-3 mm posterior left lower lobe solid noncalcified pulmonary nodule on 546. Unchanged 3 mm left lower lobe groundglass pulmonary nodule laterally on 466 and 4 mm lateral right lower lobe groundglass nodule on 440. Numerous additional sub-3 mm noncalcified micronodules in both lungs, for example on left upper lobe 107, 109 which are similar to the prior. Ill-defined peripheral predominant groundglass and reticulation predominantly in the right lung, though also mildly present in the left lower lobe, some of which were present on 10/12/2021, however accurate comparison is challenging due to the prior mass and left pleural effusion. Probable mild dendriform pulmonary ossifications in the inferior lung bases. Clear central airways. Subsegmental endobronchial mucous plugging. No left pleural effusion. No pneumothorax. An 8 mm left interlobar lymph node on 340 has decreased in size from 10 mm previously. A 7 mm right infrahilar lymph node on 375 previously measured 5 mm. Additional scattered unchanged subcentimeter thoracic lymph nodes. For example: 5 mm right anterior diaphragmatic lymph node on 493 and 6 mm precarinal lymph node on 262. No pericardial effusion. Mild atherosclerotic vascular calcifications. Stable 5 mm nodule or lymph node inferior right breast on 387. Interval sternotomy. Right lower anterior costochondral junction cerclage wire. New ununited left posterolateral lateral 8th rib fracture on 347. No aggressive appearing osseous lesions. Cholelithiasis. Left renal cysts. Unchanged 9 mm left adrenal nodule on 627 and similar somewhat ill-defined thickening of the medial limb of the left adrenal gland on 599. The visualized upper abdomen is otherwise unremarkable. IMPRESSION: 1. Since 08/11/2022, interval postoperative changes related to resection of a large thymoma involving the prevascular mediastinum and right hemithorax. No discrete soft tissue density nodularity in the prevascular mediastinum. Scattered small foci of low density along the right pleural surfaces are likely postoperative. 2. An 8 x 6 mm solid noncalcified pulmonary nodule along the right minor fissure may have been present on the preoperative study, however is challenging to accurately compare and was previously immediately adjacent to the mass. New sub-3 mm posterior left lower lobe solid noncalcified pulmonary nodule. Chest CT follow-up is recommended. 3. Multiple additional unchanged solid and sub-solid pulmonary nodules measuring 4 mm or less. 4. Ill-defined mild peripheral predominant groundglass and reticulation predominantly in the right lung, though also mildly present in the left lower lobe, some of which were present on 10/12/2021, however accurate comparison is challenging due to the prior mass and left pleural effusion; this may be related to inflammation and/or mild interstitial fibrosis. 5. Subcentimeter thoracic lymph nodes. An 8 mm interlobar lymph node has mildly decreased in size, however a 7 mm right infrahilar lymph node has mildly increased in size. ASSESSMENT / PLAN #[address] of the chest was discussed with Dr. Claudio. Due to the increase in size of a right infrahilar lymph node, she recommends repeating the CT scan in four months. We discussed that the stomatitis could be dealt with her primary care provider who she is following up with this week. This could be due to nutritional deficiencies such as folic acid or iron, and we have evidence that she is deficient in iron with her anemia. We will plan on seeing her back again in four months' time for ongoing surveillance. documented in this encounter Plan of Treatment Upcoming Encounters Date Type Department Care Team (Latest Contact Info) Description 09/18/2023 10:15 AM ASPHALT TAMPER Clinical Communication Virtual Review in [place], [place] [address] [place] [address] 09/19/2023 8:10 AM ASPHALT TAMPER Appointment Department of Laboratory Medicine and Pathology, [facility] in [place], [place] [address] [place] [phone] Radha Keen APRN, C.N.P., M.S.N. [address] [place] [phone] 09/19/2023 10:15 AM ASPHALT TAMPER Appointment Department of Radiology, [facility], in [place], [place] [address] [place] [phone] Radha Keen APRN, C.N.P., M.S.N. [address] [place] [phone] 09/19/2023 1:00 PM ASPHALT TAMPER Office Visit Division of Thoracic Surgery in [place], [place] [address] [place] [phone] Radha Keen APRN, Estefani, M.S.N. [address] [place] [phone] documented as of this encounter Visit Diagnoses Diagnosis Thymoma- Primary documented in this encounter Care Teams Milanese Knitting Machine Operator Relationship Specialty Start Date End Date Elsewhere, Pcp PCP - General Family Medicine 01/03/18 documented as of this encounter
--- OUTSIDE RECORDS SUMMARY | 2023-09-04 20:28 | XMS_ITS | Encounter Summary ---
Author Name Unknown Organization [facility] Address [address] [place] [address] Care Team Providers Care Slice Plug Cutter Operator Name Role Phone Elsewhere, Pcp Primary Care Provider Unavailabl e Reason for Referral * MRI/CAT/PET Scan (Routine) - Closed Specialty Diagnoses / Procedures Referred By Joe allison Referred To Contact Radiology Diagnoses Mass Mediastinal Procedures CT Chest with IV Contrast Abril Nash P.A.-C. [address] [place] [address] [facility] Referral ID Status Reason Start Date Expiration Date Visits Re quested Visits Authorized [id number] Closed 10/30/2022 10/30/2023 1 1 Reason for Visit * MRI/CAT/PET Scan (Routine) - Closed Specialty Diagnoses / Procedures Referred By Joe allison Referred To Contact Radiology Diagnoses Mass Mediastinal Procedures CT Chest with IV Contrast Abril Nash P.A.-C. [address] [place] [address] [facility] Referral ID Status Reason Start Date Expiration Date Visits Re quested Visits Authorized [id number] Closed 10/30/2022 10/30/2023 1 1 Encounter Details Date Type Department Care Team (Latest Contact Info) Description 05/02/2023 10:21 AM CDT - 05/02/2023 11:59 PM CDT Hospital Encounter Department of Radiology, [facility], in [place], [place] [address] [place] [address] Abril Nsah P.A.-C. [address] [place] [address] Mass Mediastinal Discharge Disposition: Home or Self Care Social History Tobacco Use Types Packs/Day Years [...] often do you attend chur ch or rastafarian services? Never 06/04/2022 Do you belong to any clubs o r organizations such as tenriism groups, unions, fraternal or athletic groups, or [...] care, and heating? Not very hard 06/04/2022 [facility] of Occupat ional Health - Occupational Stress [...] or slept in a residential (including now)? No 06/04/2022 Nutrition Answer Date [...] Master's degree (e.g., MA, MS, Milly, MEd, MONITORING TECH, MADELYN) 06/04/2022 Sex and Gender Information Value Date Recorded Sex Assigned at Female 06/04/2022 4:58 PM CDT Gender Identity Female 06/04/2022 4:58 PM CDT Sexual Orientation Straight 06/04/2022 4: 58 PM CDT documented as of this encounter Medications at Time of Discharge Medication Sig Dispensed Refills Start Date End Date acetaminophen (TYLENOL) 500 mg tablet Take 1-2 tablets (500-1,000 mg total) by mouth every 6 (six) hours as needed (pain). 0 08/27/2022 ascorbic acid, vitamin C, (VITAMIN C) 1,000 mg tablet Take 1,000 mg by mouth daily. 0 B complex-vitamins (BALANCE B-50) tablet Take 1 tablet by mouth once a week. MONDAYS 0 calcium-vitamin D3-vitamin K (VIACTIV) 650 mg-12.5 mcg (500 Unit)-40 mcg tablet,chewable per chewable tablet Chew 1 tablet 2 (two) times a day with meals. 0 cholecalciferol (VITAMIN D3) 50 mcg (2,000 Unit) tablet Take 2,000 Units by mouth daily. 0 03/14/2022 dexAMETHasone 0.5 mg/5 mL elixir See Admin Instructions. 0 DOCUSATE SODIUM ORAL Take 200 mg by mouth 2 (two) times a day. 0 estradioL (ESTRACE) 1 mg tablet Take 0.5 mg by mouth every other day. Takes after dinner every other day. 0 03/14/2022 FLUoxetine (PROzac) 20 mg capsule Take 20 mg by mouth as directed. As of 08/17/2022, has not been taking for awhile, but may restart and would like to keep on medication list for now. 0 06/19/2022 glucosa merchant 2KCl/chondroitin merchant (GLUCOSAMINE SULF-CHONDROITIN ORAL) Take 2 tablets by mouth daily after dinner. Glucosamine 1500 mg/Chondroitin 1200 mg/tablet 0 ibuprofen (ADVIL,MOTRIN) 600 mg tablet Take 1 tablet (600 mg total) by mouth every 6 (six) hours as needed for pain (pain). 50 tablet 0 08/27/2022 minoxidiL 5 % solution Apply 1 application topically at bedtime. Apply to scalp 0 multivitamin-minerals- lutein (CENTURY MATURE) tablet Take 1 tablet by mouth daily. 0 omeprazole (PriLOSEC) [address] capsule Take 20 mg by mouth every morning before breakfast. 0 03/27/2023 peg 400/hypromellose/glyce rin (DRY EYE RELIEF OPHT) Administer 1-2 drops into both eyes as needed (dry eyes). 0 pseudoephedrine (SUDAFED) 30 mg tablet Take 30 mg by mouth as needed for congestion. 0 sulfuric acid-sulfonated phenolics (DEBACTEROL) 30-50 % swab Apply 1 each topically as needed (canker sores). Does not use often, but would like to keep on medication list in case needed. 0 03/14/2022 triamcinolone (KENALOG) 0.1 % dental paste TAKE 1 APPLICATION 3 TIMES A DAY BY DENTAL ROUTE NEEDED FOR 10 DAYS. 0 ZINC ORAL Take 30 mg by mouth 3 (three) times a week. Uyfakh-Sbvtngeyg-Wtclgu 0 03/14/2022 documented as of this encounter Plan of Treatment Upcoming Encounters Date Type Department Care Team (Latest Contact Info) Description 09/18/2023 10:15 AM FREIGHT CAR INSPECTOR Clinical Communication Virtual Review in [place], [place] [address] [place] [address] 09/19/2023 8:10 AM FREIGHT CAR INSPECTOR Appointment Department of Laboratory Medicine and Pathology, [facility], in [place], [place] [address] [place] [address] Radha Keen, CICI, C.NLuz Maria, M.S.N. [address] [place] [phone] 09/19/2023 10:15 AM FREIGHT CAR INSPECTOR Appointment Department of Radiology, [facility], in [place], [place] [address] [place] [address] Radha Keen APRN, C.N.P., M.S.N. [address] [place] [phone] 09/19/2023 1:00 PM FREIGHT CAR INSPECTOR Office Visit Division of Thoracic Surgery in [place], [place] [address] [place] [phone] Radha Keen APRN, C.N.P., M.S.N. [address] [place] [phone] documented as of this encounter Procedures Procedure Name Priority Date/Time Associated Diagnosis Comments CT CHEST WITH IV CONTRAST RAD - Routine (most inpatients and all outpatients) 05/02/2023 11:04 AM CDT Mass Mediastinal documented in this encounter Results * CT Chest with IV Contrast (05/02/2023 11:04 AM CDT) Anatomical Region Laterality Modality Chest, Thoracic RST LOS, Tho racic ARZ LOS, Thoracic ARZ LOS, Thoracic FLA LOS N/A Computed Tomography, Compute d Tomography 05/02/2023 11:0 4 AM CDT Impressions 05/02/2023 11:50 AM CDT 1. 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 No discrete soft tissue density nodularity in the prevascular mediastinum. Scattered small foci of low density along the right pleural surfaces are likely postoperative. 2. ??An 8 x 6 mm solid noncalcified pulmonary nodule along the right minor fissure may have been present on the preoperative study, however is challenging to accurately compare and was previously immediately adjacent to the mass. New sub-3 mm posterior left lower lobe solid noncalcified pulmonary nodule. Chest CT follow-up is recommended. 3. ??Multiple additional unchanged solid and sub-solid pulmonary nodules measuring 4 mm or less. 4. ??Ill-defined mild peripheral predominant groundglass and reticulation predominantly in the right lung, though also mildly present in the left lower lobe, some of which were present on 10/12/2021, however accurate comparison is challenging due to the prior mass and left pleural effusion; this may be related to inflammation and/or mild interstitial fibrosis. 5. ??Subcentimeter thoracic lymph nodes. An 8 mm interlobar lymph node has mildly decreased in size, however a 7 mm right infrahilar lymph node has mildly increased in size. 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 No discrete soft tissue density nodularity in the prevascular mediastinum. Small foci of fluid density along the right pleural surfaces, for example paramediastinal pleura at the level of the ascending aorta on 3/310, anterolateral pleural surface of 3/310, overlying the posterior right hemidiaphragm inferiorly on 3/588 and posterior costophrenic sulcus on 3/577. An 8 x 6 mm solid noncalcified pulmonary nodule along the right minor fissure may have been present on the preoperative study, however is challenging to accurately compare and was previously immediately adjacent to the mass. New sub-3 mm posterior left lower lobe solid noncalcified pulmonary nodule on 3/546. Unchanged 3 mm left lower lobe groundglass pulmonary nodule laterally on 3/466 and 4 mm lateral right lower lobe groundglass nodule on /440. Numerous additional sub-3 mm noncalcified micronodules in both lungs, for example on left upper lobe 3/107, 109 which are similar to the prior. [...] 8 mm left interlobar lymph node on has decreased in size from 10 mm previously. A 7 mm right infrahilar lymph node on previously measured 5 mm. Additional scattered unchanged subcentimeter thoracic lymph nodes. For example: 5 mm right anterior diaphragmatic lymph node on and 6 mm precarinal lymph node on 262. No pericardial effusion. Mild atherosclerotic vascular calcifications. Stable 5 mm nodule or lymph node inferior right breast on . Interval sternotomy. Right lower anterior costochondral junction cerclage wire. New ununited left posterolateral lateral 8th rib fracture on . No aggressive appearing osseous lesions. Cholelithiasis. Left renal cysts. Unchanged 9 mm left adrenal nodule on and similar somewhat ill-defined thickening of the medial limb of the left adrenal gland on 599. The visualized upper abdomen is otherwise unremarkable. Procedure Note Noreen Chu M.D. - 05/02/2023 EXAM: CT CHEST WITH IV CONTRAST COMPARISON: Outside chest CT 05/12/2022 FINDINGS: Since 08/11/2022, interval postoperative changes related to resection of alarge thymoma involving the prevascular mediastinum and right hemithorax. No discrete soft tissuedensity nodularity in the prevascular mediastinum. Small foci of fluid density along the rightpleural surfaces, for example paramediastinal pleura at the level of the ascending aorta on 310,anterolateral pleural surface of 310, overlying the posterior right hemidiaphragm inferiorly on 588and posterior costophrenic sulcus on 577. An 8 x 6 mm solid noncalcified pulmonary nodule along the right minorfissure may have been present on the preoperative study, however is challenging to accurately compareand was previously immediately adjacent to the mass. New sub-3 mm posterior left lower lobesolid noncalcified pulmonary nodule on 546. Unchanged 3 mm left lower lobe groundglasspulmonary nodule laterally on 466 and 4 mm lateral right lower lobe groundglass nodule on 440.Numerous additional sub-3 mm noncalcified micronodules in both lungs, for example on left upper lobe/107, 109 which are similar to the prior. Ill-defined peripheral predominant groundglass and reticulationpredominantly in the right lung, though also mildly present in the left lower lobe, some of which werepresent on 10/12/2021, however accurate comparison is challenging due to the prior mass and left pleuraleffusion. Probable mild dendriform pulmonary ossifications in the inferior lung bases. Clearcentral airways. Subsegmental endobronchial mucous plugging. No left pleural effusion. Nopneumothorax. An 8 mm left interlobar lymph node on has decreased in size from 10mm previously. A 7 mm right infrahilar lymph node on previously measured 5 mm. Additionalscattered unchanged subcentimeter thoracic lymph nodes. For example: 5 mm right anteriordiaphragmatic lymph node on 493 and 6 mm precarinal lymph node on 262. No pericardial effusion. Mild atherosclerotic vascular calcifications. Stable 5 mm nodule or lymph node inferior right breast on . Interval sternotomy. Right lower anterior costochondral junction cerclagewire. New ununited left posterolateral lateral 8th rib fracture on . No aggressive appearingosseous lesions. Cholelithiasis. Left renal cysts. Unchanged 9 mm left adrenal nodule on627 and similar somewhat ill-defined thickening of the medial limb of the left adrenal gland on599. The visualized upper abdomen is otherwise unremarkable. IMPRESSION: 1. Since 08/11/2022, interval postoperative changes related to resectionof a large thymoma involving the prevascular mediastinum and right hemithorax. No discretesoft tissue density nodularity in the prevascular mediastinum. Scattered small foci of lowdensity along the right pleural surfaces are likely postoperative. 2. An 8 x 6 mm solid noncalcified pulmonary nodule along the right minorfissure may have been present on the preoperative study, however is challenging to accuratelycompare and was previously immediately adjacent to the mass. New sub-3 mm posterior left lower lobesolid noncalcified pulmonary nodule. Chest CT follow-up is recommended. 3. Multiple additional unchanged solid and sub-solid pulmonary nodulesmeasuring 4 mm or less. 4. Ill-defined mild peripheral predominant groundglass and reticulationpredominantly in the right lung, though also mildly present in the left lower lobe, some of whichwere present on 10/12/2021, however accurate comparison is challenging due to the prior mass and leftpleural effusion; this may be related to inflammation and/or mild interstitial fibrosis. 5. Subcentimeter thoracic lymph nodes. An 8 mm interlobar lymph node hasmildly decreased in size, however a 7 mm right infrahilar lymph node has mildly increased in size. Abril Nash P.A.-C. IMG CT PROCEDU RES documented in this encounter Visit Diagnoses Diagnosis Mass Mediastinal documented in this encounter Administered Medications Inactive Administered Medications - up to 3 most recent administrations Medication Order MAR Action Action Date Dose Rate Site iohexoL 300 mg iodine/mL solution 1-200 mL (OMNIPAQUE) 1-200 mL, intravenous, Once in imaging, contrast, Starting on Christina 05/02/23 at 1026, For 1 dose, Imaging Protocol Orders, Dose per Radiant Medication Guidelines Given 05/02/2023 10:53 AM CDT 80 mL documented in this encounter Care Teams Slice Plug Cutter Operator Relationship Specialty Start Date End Date Elsewhere, Pcp PCP - General Family Medicine 01/03/18 documented as of this encounter
--- OUTSIDE RECORDS SUMMARY | 2023-09-04 20:28 | XMS_ITS | Encounter Summary ---
Author Name Unknown Organization [facility] Address [address] [place] [address] Care Team Providers Care Chairman And Ceo Name Role Phone Elsewhere, Pcp Primary Care Provider Unavailabl e Encounter Details Date Type Department Care Team (Latest Contact Info) Description 05/02/2023 8:50 AM CDT - 05/02/2023 10:20 AM CDT Hospital Encounter Department of Laboratory Medicine and Pathology, [facility], in [place], [place] [address] [place] [address] Abril Nash P.A.-C. [address] [place] [address] Mass Mediastinal Discharge Disposition: Home or Self [...] How often do you attend chur or episcopal services? Never 06/04/2022 Do you belong to any clubs o r organizations such as druze groups, unions, fraternal or athletic groups, or [...] care, and heating? Not very hard 06/04/2022 [facility] of Occupat ional Health - Occupational Stress [...] place to sleep or slept in a fci (including now)? No 06/04/2022 Nutrition Answer Date [...] Master's degree (e.g., MA, MS, Milly, MEd, PERSONAL LINES ADVISOR, MADELYN) 06/04/2022 Sex and Gender Information Value [...] by mouth 3 (three) times a week. Tqdsas-Akpdoedsr-Gspdjp 0 03/14/2022 documented as of this encounter Plan of Treatment Upcoming Encounters Date Type Department Care Team (Latest Contact Info) Description 09/18/2023 10:15 AM FOOT SPECIALIST Clinical Communication Virtual Review in [address] [address] 09/19/2023 8:10 AM FOOT SPECIALIST Appointment Department of Laboratory Medicine and Pathology, [facility] in [address] [phone] Radha Keen APRN C.N.P., M.S.N. [address] [place] [phone] 09/19/2023 10:15 AM FOOT SPECIALIST Appointment Department of Radiology, [facility], in [address] [phone] Radha Keen APRN, C.N.P., M.S.N. [address] [place] [phone] 09/19/2023 1:00 PM FOOT SPECIALIST Office Visit Division of Thoracic Surgery in [address] [phone] Radha Keen APRN C.N.P., M.S.N. [address] [place] [phone] documented as of this encounter Procedures Procedure Name Priority Date/Time Associated Diagnosis Comments CREATININE WITH EGFR, S/P Routine 05/02/2023 9:09 AM CDT Mass Mediastinal documented in this encounter Results * Creatinine with Estimated GFR (05/02/2023 9:09 AM CDT) Creatinine 0.79 0.59 - 1.04 mg/dL 05/02/2023 10:02 AM CDT DTL Estimated GFR (eGFR) 80 >=60 mL/min/BSA 05/02/2023 10:02 AM CDT DTL Comment: Estimated GFR calculated using the 2020 CKD_EPI creatinine equation. Blood (Blood, Venous) 05/02/2023 9:09 AM CDT 05/02/2023 9:44 AM CDT Abril Nash P.A.-C. LAB BLOOD ADD- ON [facility] [address] [place] [address], [facility] DTL [facility] [address] [place] [address] documented in this encounter Visit Diagnoses Diagnosis Mass Mediastinal documented in this encounter Care Teams Chairman And Ceo Relationship Specialty Start Date End Date Elsewhere, Pcp PCP - General Family Medicine 01/03/18 documented as of this encounter
[2023-09-04 20:29] LABS: Chloride* 95 mmol/L (96-114); Potassium* 3.6 mmol/L (3.6-5.1); Sodium* 131 mmol/L (135-149)
--- OUTSIDE RECORDS SUMMARY | 2023-09-04 20:29 | XMS_ITS | Clinical Summary ---
Author Name Unknown Organization [employer] [facility] Address [place], [place] [address] Care Team Providers Care Card Decorator Name Role Phone Chitra Bruno MD Primary Care Provider Allergies Active Allergy Reactions Criticality Noted Date Comments Penicillins 09/05/2010 Sulfa (Sulfonamide Antibiotics) 08/26 Medications Medication Sig Dispensed Refills Start Date End Date Status estrogens conj synthetic (CENESTIN) 0.9 mg tablet Take 1 tablet by mouth once daily. 0 09/05/2010 Active FLUoxetine (PROZAC) 10 mg capsule Take 1 capsule by mouth every morning. 0 09/05/2010 Active alendronate (FOSAMAX) 70 mg tabletIndications:Ost eoporosis Take 1 tablet by mouth once a week in the morning. Take on empty stomach with full glass of water. Do not lie down for 1 hr. 12 tablet 3 09/28/2010 Active Active Problems Problem Noted Date Diagnosed Date Osteopenia 09/05/2010 Encounters Date Type Department Care Team Description 07/31/2023 Lab Requisition [facility] [phone] Aury Estevez MD from Last 3 Months Immunizations Name Administration Dates Next Due Influenza, IIV3 (Age >=3 years) 09/05/2010 Tdap 09/05/2010 Family History Medical History Relation Name Comments Cancer Father bladder Cancer Mother ovarian, age 65 Cancer-breast No Family History Relation Name Status Comments Father Mother Social History Tobacco Use Types Packs/Day Years Used Date Smoking Tobacco: Never Smokeless Tobacco: Never Alcohol Use Standard Drinks/Week Comments Yes 0 (1 standard drink = 0.6 oz pur e alcohol) occa Social Connections Answer Date Recorded Frequency of Communication with Friends and Fami ly Not on file 08/28/2023 Sex and Gender Information Value Date Recorded Sex Assigned at Not on file Gender Identity Not on file Sexual Orientation Not on file Obstetrics History Last Filed Vital Signs Vital Sign Reading Time Taken Comments Blood Pressure 118/78 09/28/2010 2:38 PM SENIOR SITE MANAGER Pulse 71 09/28/2010 2:38 PM SENIOR SITE MANAGER Temperature - - Respiratory Rate - - Oxygen Saturation - - Inhaled Oxygen Concentration - - Weight 85.2 kg (187 lb 12.8 oz) 09/28/2010 2:38 PM SENIOR SITE MANAGER Height 174 cm (5' 8.5) 09/05/2010 3:52 PM SENIOR SITE MANAGER Body Mass Index 28.14 09/05/2010 3:52 PM SENIOR SITE MANAGER Plan of Treatment Health Maintenance Due Date Last Done Comments COVID-19 vaccine series (#1) 01[birth year]25/1951 Depression screening for age 12+ 1964 BMI (ht and wt on same day) for age 18+ 1970 Hepatitis C screening for age 18-79 1970 Colonoscopy through age 75 1997 Lipids for age 45-75 1997 Zoster (shingles) series for age 50+ (1 of 2) 2002 Mammogram for age 45-75 09/21/2011 09/21/2010, 09/05 DEXA/DXA scan for age 65+ 2017 09/12/2010 Pneumococcal series for age 65+ (1 of 1 - PCV) 2017 Tetanus booster 09/05/2020 09/05/2010 Influenza for age 65+ 04/26/2023 09/05/2010 Tdap Completed 09/05/2010 Procedures Procedure Name Priority Date/Time Associated Diagnosis Comments LAB TRACKING EVENT Routine 07/31/2023 11 :30 AM SENIOR SITE MANAGER PATH BREAST CORE BIOPSY Routine 07/31/2023 11:30 AM SENIOR SITE MANAGER from Last 3 Months Results * LAB TRACKING EVENT (07/31/2023 11:30 AM SENIOR SITE MANAGER) Other (Other) Client Collect / Unknown 07/31/2023 11:30 AM SENIOR SITE MANAGER 07/31/2023 8:50 PM SENIOR SITE MANAGER Aury Estevez MD LAB BILL ONLY [facility] [address] [place] [address], * PATH BREAST CORE BIOPSY (07/31/2023 11:30 AM SENIOR SITE MANAGER) Case Report Pathology Report ?Case: [id number] ? Authorizing Provider: ??Aury Estevez MD ??Collected: ? 07/31/2023 1130 ? Ordering Location: ? [facility] ?Received: ?07/31/20232055 ? Pathologist: ? Dale Helton MD ? Specimen: ?Right Breast Core Ultrasound Biopsy ? 08/01/2023 10:26 AM SENIOR SITE MANAGER [facility] Final Diagnosis A) RIGHT BREAST, 9:00, 1 CM FROM NIPPLE, ULTRASOUND-GUID ED CORE BIOPSY: 1. Nodular densely fibrous breast stroma and dilated ducts 2. Negative for atypia and malignancy 08/01/2023 10:26 AM SENIOR SITE MANAGER [facility] Comment A) This is an image-guided breast biopsy. The pathologic findings should be correlated with radiologic and clinical findings prior to treatment decisions. Case seen in consultation with Dr. Andres. 08/01/2023 10:26 AM [facility] Clinical Information RIGHT breast lobulated, indistinct, hypoechoic, solid mass at 9:00, 1 cm from the nipple measuring 2.4 cm 08/01/2023 10:26 AM [facility] Gross Description A) Label: Patient's name and right breast Description: Fibrofatty core biopsies Size: 2.0 x 0.7 x 0.2 cm (aggregate) Ink color: Blue The specimen is submitted in toto in 1 cassette(s). Cold ischemic time: Less than 60 minutes, meets current ASCO/CAP guidelines. ?? The specimen was fixed in formalin for a minimum of 6 hours and not longer than 72 hours. TLF 07/31/2023 08/01/2023 10:26 AM [facility] Microscopic Description The final diagnosis is based on microscopic examination of appropriate sections of all specimens. A) The presence of blue ink is confirmed on tissue sections. 08/01/2023 10:26 AM [facility] Additional Information Interpreted at [facility] - [address] [facility] [address], [place] [address] 08/01/2023 10:26 AM [facility] Other (Right Breast Core Ultrasound Biopsy) 07/31/2023 11:30 AM SENIOR SITE MANAGER 07/31/2023 8:56 PM SENIOR SITE MANAGER Aury Estevez MD PATHOLOGY/CYTOLO [facility] [address] [place] [address], from Last 3 Months Care Teams Card Decorator Relationship Specialty Start Date End Date Chitra Bruno MD [address] [place] [address] PCP - General Family Practice 08/29/10
--- OUTSIDE RECORDS SUMMARY | 2023-09-04 20:29 | XMS_ITS | Encounter Summary ---
Author Name Unknown Organization [facility] Address [address] [place] [address] Care Team Providers Care Regional Director Name Role Phone Elsewhere, Pcp Primary Care Provider Unavailabl e Reason for Visit * Reason Onset Date Comments Pre-visit Intake 10/12/2022 Encounter Details Date Type Department Care Team (Latest Contact Info) Description 10/12/2022 11:30 AM PALLETIZER OPERATOR Clinical Communication Virtual Review in [place], [place] 200 [place], [place] [address] Pre-visit Intake Social History Tobacco Use Types [...] How often do you attend chur or confucianism services? Never 06/04/2022 Do you belong to any clubs o r organizations such as episcopalian groups, unions, fraternal or athletic groups, or [...] care, and heating? Not very hard 06/04/2022 [facility] - Occupational Stress Questionnaire Answer [...] Master's degree (e.g., MA, MS, Milly, MEd, SAP GRC SECURITY, MADELYN) 06/04/2022 Sex and Gender Information Value Date Recorded Sex Assigned at Female 06/04/2022 4:58 PM CDT Gender Identity Female 06/04/2022 4:58 PM CDT Sexual Orientation Straight 06/04/2022 4: 58 PM CDT documented as of this encounter Plan of Treatment Upcoming Encounters Date Type Department Care Team (Latest Contact Info) Description 09/18/2023 10:15 AM PALLETIZER OPERATOR Clinical Communication Virtual Review in [address] [address] 09/19/2023 8:10 AM PALLETIZER OPERATOR Appointment Department of Laboratory Medicine and Pathology, [facility] in [place], [place] [address] [place] [address] Radha Keen APRN, C.NCasandra., M.S.N. [address] [place] [phone] 09/19/2023 10:15 AM PALLETIZER OPERATOR Appointment Department of Radiology, [facility] in [place], [place] [address] [place] [address] Radha Keen APRN, C.N.P., M.S.N. [address] [place] [phone] 09/19/2023 1:00 PM PALLETIZER OPERATOR Office Visit Division of Thoracic Surgery in [place], [place] [address] [place] [address] Radha Keen APRN, C.N.P., M.S.N. [address] [place] [phone] documented as of this encounter Visit Diagnoses Not on filedocumented in this encounter Care Teams Regional Director Relationship Specialty Start Date End Date Elsewhere, Pcp PCP - General Family Medicine 01/03/18 documented as of this encounter
--- OUTSIDE RECORDS SUMMARY | 2023-09-04 20:29 | XMS_ITS | Encounter Summary ---
Author Name Unknown Organization [facility] Address [address] [place] [address] Care Team Providers Care Fisher Troll Line Name Role Phone Elsewhere, Pcp Primary Care Provider Unavailabl e Encounter Details Date Type Department Care Team (Late st Contact Info) Description 09/13/2022 Orders Only Division of Thoracic Surgery in [place], [place] [address] [place] [phone] Radha Keen APRN, C.N.P., M.S.N. [address] [place] [phone] Social History Tobacco Use Types Packs/Day Years Used Date Smoking Tobacco: Never Smokeless Tobacco: Never Alcohol Use Standard Drinks/Week Comments Not Currently 0 (1 standard drink = 0.6 oz [...] How often do you attend chur or yazidism services? Never 06/04/2022 Do you belong to any clubs o r organizations such as buddhist groups, unions, fraternal or athletic groups, or [...] and heating? Not very hard 06/04/2022 [facility] of Occupat ional Health - Occupational [...] Master's degree (e.g., MA, MS, Milly, MEd, MEDICAL INSTRUMENT CABLE FABRICATOR, MADELYN) 06/04/2022 Sex and Gender Information Value Date Recorded Sex Assigned at Female 06/04/2022 4:58 PM CDT Gender Identity Female 06/04/2022 4:58 PM CDT Sexual Orientation Straight 06/04/2022 4: 58 PM CDT documented as of this encounter Plan of Treatment Upcoming Encounters Date Type Department Care Team (Latest Contact Info) Description 09/18/2023 10:15 AM TILTING HEAD BAND SAWYER Clinical Communication Virtual Review in [address] [address] 09/19/2023 8:10 AM TILTING HEAD BAND SAWYER Appointment Department of Laboratory Medicine and Pathology, [facility] in [place], [place] [address] [place] [address] Radha Keen APRN, C.NYesikaP., M.S.N. [address] [place] [phone] 09/19/2023 10:15 AM TILTING HEAD BAND SAWYER Appointment Department of Radiology, [facility] in [place], [place] [address] [place] [address] Radha Keen APRN, C.N.P., M.S.N. [address] [place] [phone] 09/19/2023 1:00 PM TILTING HEAD BAND SAWYER Office Visit Division of Thoracic Surgery in [place], [place] [address] [place] [phone] Radha Keen APRN, C.N.P., M.S.N. [address] [place] [phone] documented as of this encounter Visit Diagnoses Not on filedocumented in this encounter Care Teams Fisher Troll Line Relationship Specialty Start Date End Date Elsewhere, Pcp PCP - General Family Medicine 01/03/18 documented as of this encounter
--- OUTSIDE RECORDS SUMMARY | 2023-09-04 20:29 | XMS_ITS | Encounter Summary ---
Author Name Unknown Organization [facility] Address [address] [place] [address] Care Team Providers Care Archivist Name Role Phone Elsewhere, Pcp Primary Care Provider Unavailabl e Encounter Details Date Type Department Care Team (Late st Contact Info) Description 10/03/2022 Clinical Communication Division of Thoracic Surgery in [place], [place] [address] [place] [phone] Rosaura Claudio M.D., Ph.D. [address] [place] [address] Social History Tobacco Use Types Packs/Day Years [...] often do you attend chur ch or yarsanism services? Never 06/04/2022 Do you belong to any clubs o r organizations such as yazidism groups, unions, fraSpongecell or athletic groups, or school groups? No [...] care, and heating? Not very hard 06/04/2022 [facility] of Occupat ional Health - Occupational Stress [...] place to sleep or slept in a prison (including now)? No 06/04/2022 Nutrition Answer Date [...] Master's degree (e.g., MA, MS, Milly, MEd, WAIST PLEATER, MADELYN) 06/04/2022 Sex and Gender Information Value Date Recorded Sex Assigned at Female 06/04/2022 4:58 PM CDT Gender Identity Female 06/04/2022 4:58 PM CDT Sexual Orientation Straight 06/04/2022 4: 58 PM CDT documented as of this encounter Miscellaneous Notes * Telephone Encounter - Radha Keen APRN, C.N.P. - 10/05/2022 1:34 PM CST Left another message. T LINE FEEDER * Telephone Encounter - Radha Keen APRN, C.N.P. - 10/04/2022 9:46 AM CST Left message T LINE FEEDER documented in this encounter Plan of Treatment Upcoming Encounters Date Type Department Care Team (Latest Contact Info) Description 09/18/2023 10:15 AM PRINT LINE FEEDER Clinical Communication Virtual Review in [address] [address] 09/19/2023 8:10 AM PRINT LINE FEEDER Appointment Department of Laboratory Medicine and Pathology, [facility] in [address] [phone] Radha Keen APRN, C.N.P., M.S.N. [address] [place] [phone] 09/19/2023 10:15 AM PRINT LINE FEEDER Appointment Department of Radiology, [facility], in [address] [phone] Radah Kene APRN, Sandip.N.P., M.S.N. [address] [place] [phone] 09/19/2023 1:00 PM PRINT LINE FEEDER Office Visit Division of Thoracic Surgery in [address] [phone] Radha Keen APRN, C.N.P., M.S.N. [address] [place] [phone] documented as of this encounter Visit Diagnoses Not on filedocumented in this encounter Care Teams Archivist Relationship Specialty Start Date End Date Elsewhere, Pcp PCP - General Family Medicine 01/03/18 documented as of this encounter
--- OUTSIDE RECORDS SUMMARY | 2023-09-04 20:29 | XMS_ITS | Encounter Summary ---
Author Name Unknown Organization [facility] Address [address] [place] [address] Care Team Providers Care [employer] Home Economics Teacher Name Role Phone Elsewhere, Pcp Primary Care Provider Unavailabl e Reason for Referral * Outpatient (Routine) - Closed Specialty Diagnoses / Procedures Referred By Joe allison Referred To Contact Thoracic Surgery Abril Nash P.A.-C. 200 [place] [address] [facility] Referral ID Status Reason Start Date Expiration Date Visits Re quested Visits Authorized [id number] Closed 10/30/2022 10/29/2025 1 1 SLITTER * MRI/CAT/PET Scan (Routine) - Closed Specialty Diagnoses / Procedures Referred By Joe allison Referred To Contact Radiology Diagnoses Mass Mediastinal Procedures CT Chest with IV Contrast Abril Nash P.A.-C. [address] [place] [phone] [facility] Referral ID Status Reason Start Date Expiration Date Visits Re quested Visits Authorized [id number] Closed 10/30/2022 10/30/2023 1 1 SLITTER Reason for Visit * Outpatient (Routine) - Closed Specialty Diagnoses / Procedures Referred By Joe t Referred To Contact Video Medicine Diagnoses Mass Mediastinal Delaney Wade M.D. [facility] Referral ID Status Reason Start Date Expiration Date Visits Re quested Visits Authorized [id number] Closed 08/27/2022 08/27/2023 1 1 Encounter Details Date Type Department Care Team (Late st Contact Info) Description 10/15/2022 11:00 AM CUFF SLITTER Telemedicine Division of Thoracic Surgery in [place], [place] [address] [place] [phone] Abril Nash P.A.-C. [address] [place] [address] Mass Mediastinal Social History Tobacco Use Types Packs/Day Years [...] often do you attend chur ch or catholic services? Never 06/04/2022 Do you belong to any clubs o r organizations such as jehovah's witness groups, unions, fraternal or athletic groups, or [...] to sleep or slept in a senior care (including now)? No 06/04/2022 Nutrition Answer Date [...] Master's degree (e.g., MA, MS, Milly, MEd, GEM SETTER, MADELYN) 06/04/2022 Sex and Gender Information Value Date Recorded Sex Assigned at Female 06/04/2022 4:58 PM CDT Gender Identity Female 06/04/2022 4:58 PM CDT Sexual Orientation Straight 06/04/2022 4: 58 PM CDT documented as of this encounter Progress Notes * Abril Nash P.A.-C. - 10/15/2022 11:00 AM CST SUBJECTIVE Alexia Phillips is a 72 y.o. female who presents today for a post- operative follow up visit. Dr. Claudio took her to the operating room on August 14, 2022 for a aryan clamshell mediastinalmass resection. 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 Margins negative by 1 mm. It was encapsulated without invasion of surrounding tissue. She was discharged from the hospital on August 27 after an uneventful postoperative course. She returns today doing really well. She is having some persistent soreness, numbness and hypersensitivity, which is not unexpected. This is worse with a deep breath. She is taking Lyrica twice a daywith some side effects, and will taper off when ready. She may need a refill prior to completely stopping it. Appetite and bowel of improve, along with activity. No fevers, chills, infections, or hospitalizations since discharge. OBJECTIVE PHYSICAL EXAM General: no apparent distress Pulmonary: normal breathing Incision: normal, clean, dry, intact, no erythema and no drainage Diagnostics Imaging: chest radiograph Chest x-ray Result: stable postoperative changes ASSESSMENT / PLAN #1 Mass Mediastinal Doing as I expect after surgery. If she needs more pregabalin prior to tapering, certainly we are happy to help. For ongoing oncologic surveillance, we will see her back in [address] chest with IV contrast. I did review with the team regarding the role of adjuvant radiation therapy, but given the negativemargin, the team did not feel it was necessary. Postoperative visit no charge. SLITTER documented in this encounter Plan of Treatment Upcoming Encounters Date Type Department Care Team (Latest Contact Info) Description 09/18/2023 10:15 AM CUFF SLITTER Clinical Communication Virtual Review in [place], [place] 200 [place] [address] 09/19/2023 8:10 AM CUFF SLITTER Appointment Department of Laboratory Medicine and Pathology, [facility] in [place], [place] [address] [place] [phone] Radha Keen APRN C.N.P., M.S.N. [address] [place] [phone] 09/19/2023 10:15 AM CUFF SLITTER Appointment Department of Radiology, [facility], in [place], [place] [address] [place] [phone] Radha Keen APRN, Sandip.N.P., M.S.N. [address] [place] [phone] 09/19/2023 1:00 PM CUFF SLITTER Office Visit Division of Thoracic Surgery in [place], [place] [address] [place] [address] Radha Keen, CICI, C.N.P., M.S.N. [address] [place] [address] Scheduled Referrals Name Type Priority Associated Diagnoses Orde r Schedule Thoracic Surgery office visit (clinic) Outpatient Referral Routine Expected: 05/02/2023 (Approximate), Expires: 01/31/2024 documented as of this encounter Results * CT Chest with [...] the level of the ascending aorta on 310, anterolateral pleural surface of 310, overlying the posterior right hemidiaphragm inferiorly on 588 and posterior costophrenic sulcus on 577. An 8 [...] 5 mm right anteriordiaphragmatic lymph node on and 6 mm precarinal lymph node on . No pericardial effusion. Mild atherosclerotic vascular calcifications. [...] medial limb of the left adrenal gland on. The visualized upper abdomen is otherwise unremarkable. [...] mildly increased in size. Abril Nash P.A.-C. [facility] CT PROCEDU RES * Creatinine with Estimated GFR (05/02/2023 9:09 AM CDT) Creatinine 0.79 0.59 - 1.04 mg/dL 05/02/2023 10:02 AM CDT DTL Estimated GFR (eGFR) 80 >=60 mL/min/BSA 05/02/2023 10:02 AM CDT DTL Comment: Estimated GFR calculated using the 2020 CKD_EPI creatinine equation. Blood (Blood, Venous) 05/02/2023 9:09 AM CDT 05/02/2023 9:44 AM CDT Abril Nash P.A.-C. LAB BLOOD ADD- ON [place] [address] [place] [address], [facility] DTL [facility][note 3] [address] [place] [address] documented in this encounter Visit Diagnoses Diagnosis Mass Mediastinal Mass Mediastinal documented in this encounter Care Teams [employer] Home Economics Teacher Relationship Specialty Start Date End Date Elsewhere, Pcp PCP - General Family Medicine 01/03/18 documented as of this encounter
--- OUTSIDE RECORDS SUMMARY | 2023-09-04 20:29 | XMS_ITS | Encounter Summary ---
Author Name Unknown Organization [facility] Address [address] [place] [address] Care Team Providers Care Career Specialist Name Role Phone Elsewhere, Pcp Primary Care Provider Unavailabl e Reason for Visit * Reason Comments Med Refill Encounter Details Date Type Department Care Team (Late st Contact Info) Description 09/20/2022 Clinical Communication Division of Thoracic Surgery in [place], [place] [address] [place] [phone] Rosaura Claudio M.D., Ph.D. [address] [place] [address] Med Refill Social History Tobacco Use Types [...] How often do you attend chur or anabaptist services? Never 06/04/2022 Do you belong to [...] Not very hard 06/04/2022 [facility] of Occupat ional Health - Occupational Stress [...] Master's degree (e.g., MA, MS, Milly, MEd, ELECTROMEDICAL SERVICE ENGINEER, MADELYN) 06/04/2022 Sex and Gender Information Value Date Recorded Sex Assigned at Female 06/04/2022 4:58 PM CDT Gender Identity Female 06/04/2022 4:58 PM CDT Sexual Orientation Straight 06/04/2022 4: 58 PM CDT documented as of this encounter Miscellaneous Notes * Telephone Encounter - Suly Mansfield APRN, C.N.P. - 09/25/2022 9:02 AM CST Unable to reach patient by phone-seems to be not working. Rx for Lyrica sent to local pharmacy and portal message sent to patient. OLL LEAD * Addendum Note - Suly Mansfield APRN, C.N.P. - 09/24/2022 4:50 PM PAYROLL LEAD Addended by: SULY MANSFIELD on: 09/24/2022 04:50 PM Modules accepted: Orders OLL LEAD * Telephone Encounter - Arlette Khan - 09/24/2022 3:03 PM CST Pat called back and is interested in trying gabapentin but she has some ?s and would like to talk with you. OLL LEAD * Telephone Encounter - Suly Mansfield APRN, C.N.P. - 09/20/2022 4:46 PM CST I spoke with Mrs. Phillips by phone today. She had a aryan clamshell resection of a mediastinal mass on 08/22/[address] Claudio. She feels her pain has changed over the last week or so, mainly in the right breast area. She describes a deep ache which sounds neuropathic in nature. She doesn't like taking the oxycodone, but finds she needs it to be as active as she wants to be. She is alternating Tylenol and ibuprofen. We discussed the use of lidocaine patches, but she isn't sure about using this on her breast which is understandable. We discussed the use of gabapentin as well, including potential side effects. By the end of our conversation, we decided she will continue with the Tylenol and ibuprofen and use oxycodone as needed. A new Rx has been sent to her pharmacy. She would like to think about the gabapentin. I've reassured her that what is she feeling is expected and will improve slowly. If she continues to struggle beyond 3 months post op, we will refer her to the pain clinic for consideration of injection. OLL LEAD * Telephone Encounter - Nickie Khanrios Mcnair - 09/20/2022 4:04 PM CST Patient is still having breakthrough pain alternating Tylenol and ibuprofen every 6 hours. She is wanting to discuss pain issues, what she can do to lessen the pain, and also requesting some pain medication. OLL LEAD documented in this encounter Plan of Treatment Upcoming Encounters Date Type Department Care Team (Latest Contact Info) Description 09/18/2023 10:15 AM PAYROLL LEAD Clinical Communication Virtual Review in [address] [address] 09/19/2023 8:10 AM PAYROLL LEAD Appointment Department of Laboratory Medicine and Pathology, [facility] in [address] [phone] Suly Mansfield APRN, C.N.P., M.S.N. [address] [place] [phone] 09/19/2023 10:15 AM PAYROLL LEAD Appointment Department of Radiology, [facility], in [address] [phone] Suly Mansfield APRN, C.N.P., M.S.N. [address] [place] [phone] 09/19/2023 1:00 PM PAYROLL LEAD Office Visit Division of Thoracic Surgery in [address] [phone] Suly Mansfield APRN, C.N.P., M.S.N. [address] [place] [address] documented as of this encounter Visit Diagnoses Not on filedocumented in this encounter Care Teams Career Specialist Relationship Specialty Start Date End Date Elsewhere, Pcp PCP - General Family Medicine 01/03/18 documented as of this encounter
--- OUTSIDE RECORDS SUMMARY | 2023-09-04 20:29 | XMS_ITS | Data Portability ---
Author Name Unknown Address [address] [place] [address] Phone [phone] Organization [place] - [facility], [facility] Address [facility] [address] [place] [address] Care Team Providers Care Concrete Stone Fabricating Supervisor Name Role Phone BRUCE FORREST Primary Care Provider [phone] FLORA KEMP Referring Provider [phone] NIKO CRISOSTOMO Primary Care Provider [phone] Assessment No assessment recorded. Plan of Treatment Reminders Order Date Submit Date Provider Last Modified By Organization Details Last Modified Time Details Appointments None recorded. Lab None recorded. Referral None recorded. Procedures None recorded. Surgeries None recorded. Imaging None recorded. Medication Orders triamcinolo ne acetonide 0.1 % dental paste 2022 023 [facility] [id number] [facility] [employer], [facility], [address], 15:33:29 dexamethaso ne 0.5 mg/5 mL oral elixir 2022 023 [facility] [id number] [address] [employer], [address] [facility] [place], [address], 15:33:28 Patient TargetsNo targets recorded. Patient Instructions Encounter Date Encounter Id Patient Instructions Last Modified By Organization Details Last Modified Time 01/16/2023 [id number] canker sore: car e instructions jbarss Not available 01/16/2023 15:33:25 S: Pt has a vaishali f complaint of sores that are like canker sores that come and go that are very painful and seem to cause a headache and foggy feeling. They can be quite debilitating. 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 She did not complain of dryness. No sores today. O: Clinical findings are documented in her e chart and are very normal today except for gingival/periodont al tissues are erythemic and edemic that look like they have a pathologic process going on, especially Li to 22-27. This makes it painful to brush and she had her teeth aggressively cleaned a couple months ago. A: Apthous Ulcers/mucocitis; possible periodontitis P; We had a long discussion about the oral lesions and I prescribed 2 medications to help her with those: 1) triamcinolone in dental paste for times when she has 1 or 2 lesions with instructions how to use and 12 refills 2) dexamethasone elixir to swish with for 3 minutes and spit out 2-3x/day for up to 2 weeks for times she has multiple lesions also with 12 refills Discussed stress as part of the equation for these appearing. Also discussed her gingival tissues and recommended she order Nimbus toothbrushes to use for the discomfort of brushing right now as they have feathered tips to the bristles for comfort and the supporting part of the bristle is able to be engaged as the tenderness subsides. I also recommended she see a Automotive Window Tinter for an evaluation. She knows to reach out to me via the portal if she has any questions or concerns an d if she is able to capture a lesion by photo she will send it to me. jbarss Not available 01/16/2023 22:19:21 Reason for Referral None Reported. Procedures Surgical History Date Name Laterality Status Provider Name and Address Organization Details Recorded Time procedure on lung completed [facility] 01/16/2023 14:30:06 Imaging Results None recorded. Procedure Notes None recorded. Medical Equipment None Reported. Allergies Allergen ID Allergen Name Allergen Category Reaction Reaction Severity Criticality Documentation Date Start Date Code Code System Note Provider Name and Address Organization Details Recorded Time 97347 Medicinal product containin g penicilli n and acting as antibacte rial agent (product) medicatio n Not available Not available Not available 01/16/2023 56097 05 SNOMED [facility] 14:38:42 67737 Substance with sulfonami de structure and antibacte rial mechanism of action (substanc e) medicatio n Not available Not available Not available 01/16/2023 67536 8003 SNOMED Rea Pace audrey [facility] 14:38:49 Medications Name Sig Start Date Stop Date Status Note LastModified by Organization Details LastModified Time methocarbam ol 500 mg tablet TAKE 1 TABLET BY MOUTH 4 TIMES A DAY NEEDED FOR MUSCLE SPASMS. 01/16 completed Not Available Not Available Not Available alendronate 70 mg tablet TAKE 1 TABLET BY MOUTH EVERY 7 DAYS. 01/16 completed Not Available Not Available Not Available dexamethaso ne 0.5 mg/5 mL oral elixir PLEASE SEE ATTACHED FOR DETAILED DIRECTION S active Not Available Not Available No t Available Guaiatussin AC 10 mg-100 mg/5 mL oral liquid TAKE 5-10 ML BY MOUTH THREE TIMES DAILY NEEDED FOR COUGH. 01/16 completed Not Available Not Available Not Available famotidine 20 mg tablet TAKE 1 TABLET BY MOUTH EVERY DAY active Not Available Not Available No t Available estradiol 1 mg tablet TAKE 1 TABLET BY MOUTH EVERY DAY 01/16 completed Not Available Not Available Not Available triamcinolo ne acetonide 0.1 % dental paste TAKE 1 APPLICATI ON 3 TIMES A DAY BY DENTAL ROUTE NEEDED FOR 10 DAYS. active Not Available Not Available No t Available doxycycline monohydrate 100 mg capsule TAKE 1 CAPSULE BY MOUTH TWICE A DAY 01/16 completed Not Available Not Available Not Available ibuprofen 600 mg tablet active Not Available Not Available Not Available albuterol sulfate HFA 90 mcg/actuati on aerosol inhaler INHALE 2 PUFFS EVERY 4-6 HOURS NEEDED FOR SHORTNESS OF BREATH OR WHEEZING. 01/16 completed Not Available Not Available Not Available fluoxetine 20 mg capsule TAKE 1 CAPSULE BY MOUTH DAILY 01/16 completed Not Available Not Available Not Available oxycodone 5 mg tablet PLEASE SEE ATTACHED FOR DETAILED DIRECTION S 01/16 completed Not Available Not Available Not Available pregabalin 75 mg capsule TAKE 1 CAPSULE (75 MG TOTAL) BY MOUTH 2 (TWO) TIMES A DAY. REDUCE DOSE TO ONCE PER DAY ON 10/29/22. 01/16 completed Not Available Not Available Not Available Vitals Date Recorded Body height Heart rate Systolic blood pressure Diastolic blood pressure Provider Name and Address Organization Details Last Updated DateTime 01/16/2023 172.72 cm 73 /min 118 mm[Hg] 63 mm[Hg] Rea venturaNEDA - [facility] 01/16/2023 14:37:47 Social History Question Answer Notes LastModified by Organizat ion Details LastModified Time Tobacco Smoking Status Never Smoker Rea ventura [facility] 01/16/2023 14:41:43 What Is Your Level Of Alcohol Consumption? None Information not available 01/16/2023 What Is Your Level Of Caffeine Consumption? Occasional Information not available 01/16/2023 Are You Currently Employed? No Information not available 01/16/2023 What Type Of Diet Are You Following? REGULAR Information not available 01/16/2023 What Is Your Relationship Status? Information not available 01/16/2023 Do You Use Any Illicit Or Recreational Drugs? No Information not available 01/16/2023 Sex: Female Functional Status Question Answer Note LastModified by Organization D etails LastModified Time What is your exercise level? Moderate Information not available 01/16/2023 Mental Status None recorded. Family History Relationship Description Onset Age of this Age Resolved Age Notes Father No current problems or disability Mother No current problems or disability Medical History Condition Response Coronary Artery Disease N Other N Gout N Chronic fatigue syndrome N Hyperthyroidism N Premenstrual syndrome (PMS) N MRSA N Head Trauma/Injury N Emphysema N Irritable bowel syndrome N Glaucoma N Lung Disease N COPD N Hypothyroidism N Depression Y Pneumonia Y Pacemaker N Orthopedic Problems N Obstructive Sleep Apnea N Anxiety Disorder N Autoimmune disease N Muscle, Joint, or Bone Problems N Vision or Eye Problems N Arthritis N Serious Illness or Injuries N Acid Reflux (GERD) N Cancer N Stroke N Eating disorder N Neck Injury N Back Injury N High Cholesterol N History of chemotherapy N Neurologic Disorder N Liver Disease N Organ Transplant N Rheumatoid Arthritis N Headaches N Fibromyalgia N Kidney Disease N Allergies/Hayfever N Post traumatic stress disorder (PTSD) N Parkinson's Disease N Migraines N Thyroid Problems N Brain Tumors N Anemia N Multiple Sclerosis N Immune System Disorder N Meningitis N Pancreatic disease N Heart Attack ([place]) N Stomach Ulcers N Back pain Y Diabetes N Bleeding Disorder N Seizures/Epilepsy N Sjogren's syndrome N Tuberculosis N AIDS/HIV N History of radiation therapy N Hyperlipidemia N Dementia N Asthma N Physical or sexual abuse N Substance Abuse N Peripheral Vascular Disease N Psoriasis N Reflux/GERD N Mental Problems N Vertigo N Sleep Disorder N GERD/Reflux N Aneurysm N Hepatitis N Heart Disease N Neuropathy N Pulmonary Embolism N Hypertension N Osteoporosis N Gynecological HistoryNo gynecological history recorded. Obstetrics History GPAL:G 0 P 0 0 0 0 Past Encounters Encounter ID Performer Location Encounter Start Date Encounter Closed Date Diagnosis/Indication [id number] Helena Villalta DDS [address] [place] [address] 01/16/2023 14:17:38 01/16/2023 15:33:21 Aphthous ulcer of mouth Health Concerns Section Related Observation LastModified by Organization Detai ls LastModified Time None Recorded Concern Status LastModified by Organization Details LastModified Time None Recorded Advance Directives Directive None Recorded Payers Encounter Date Sequence Insurance Name Policy Number Policy Guevara Covered Member ID Guevara Member ID Guarantor Name 01/16/2023 1 [employer] - DOS ON OR AFTER 19 (MEDICARE REPLACEMENT/ ADVANTAGE - HMO) [id number] 1 Alexia Phillips [id number] Alexia Phillips Notes Date Note Type Note Provider Name and Address Organization Details Recorded Time 01/16/2023 text/html HPI Notes: Oral Medicine Reported by patient. Location: gingiva Quality: sore Severity: pain level 0-5/10 Duration/frequency episodic frequent Context: no known trigger Alleviating Factors: none Aggravating Factors: brushing her teeth Associated Symptoms: headaches; Dry mouth sores come and go, leading to symptoms of headaches. Alexia recently had a tumor removed from her lung last jul 2023. Helena Villalta DDS [address] [facility] [address], [place], [address], [facility] 01/16/2023 22:21:14 OBGyn Episode No OBEpisode recorded.
--- OUTSIDE RECORDS SUMMARY | 2023-09-04 20:29 | XMS_ITS | Encounter Summary ---
Author Name Unknown Organization [facility] Address [address] [place] [address] Care Team Providers Care Hydrometer Tester Name Role Phone Elsewhere, Pcp Primary Care Provider Unavailabl e Encounter Details Date Type Department Care Team (Late st Contact Info) Description 09/20/2022 Orders Only Division of Thoracic Surgery in [place], [place] [address] [place] [phone] Mookie Jaimes III, P.AYesika-Angela [address] [place] [address] Social History Tobacco Use Types Packs/Day Years [...] 06/04/2022 How often do you attend chur uTaP or uatsdin services? Never 06/04/2022 Do you belong to any clubs o r organizations such as temple groups, unions, fraternal or athletic groups, or [...] care, and heating? Not very hard 06/04/2022 [facility] [place] of Occupat ional Health - Occupational Stress [...] Master's degree (e.g., MA, MS, Milly, MEd, SECURITY INVESTIGATOR, MADELYN) 06/04/2022 Sex and Gender Information Value Date Recorded Sex Assigned at Female 06/04/2022 4:58 PM CDT Gender Identity Female 06/04/2022 4:58 PM CDT Sexual Orientation Straight 06/04/2022 4: 58 PM CDT documented as of this encounter Plan of Treatment Upcoming Encounters Date Type Department Care Team (Latest Contact Info) Description 09/18/2023 10:15 AM SURFACE LAY OUT TECHNICIAN Clinical Communication Virtual Review in [place], [place] [address] [place] [address] 09/19/2023 8:10 AM SURFACE LAY OUT TECHNICIAN Appointment Department of Laboratory Medicine and Pathology, [facility], in [place], [place] [address] [place] [phone] Radha Keen APRN, C.NLuz Maria, M.S.N. [address] [place] [phone] 09/19/2023 10:15 AM SURFACE LAY OUT TECHNICIAN Appointment Department of Radiology, [facility] in [place], [place] [address] [place] [phone] Radha Keen APRN, C.NLuz Maria, M.S.N. [address] [place] [phone] 09/19/2023 1:00 PM SURFACE LAY OUT TECHNICIAN Office Visit Division of Thoracic Surgery in [place], [place] [address] [place] [phone] Radha Keen APRN, C.NCasandra., M.S.N. [address] [place] [phone] documented as of this encounter Visit Diagnoses Not on filedocumented in this encounter Care Teams Hydrometer Tester Relationship Specialty Start Date End Date Elsewhere, Pcp PCP - General Family Medicine 01/03/18 documented as of this encounter
--- OUTSIDE RECORDS SUMMARY | 2023-09-04 20:29 | XMS_ITS | Encounter Summary ---
Author Name Unknown Organization [facility] Address [address] [place] [address] Care Team Providers Care Billing And Accounting Staff Assistant Name Role Phone Elsewhere, Pcp Primary Care Provider Unavailabl e Reason for Visit * Reason Onset Date Comments medication refill 10/22/2022 Encounter Details Date Type Department Care Team (Latest Contact Info) Description 10/22/2022 Clinical Communication Department of Cardiovascular Surgery in [place], [place] [address] [place] [phone] Rosaura Claudio M.D., Ph.D. [address] [place] [phone] medication refill Social History Tobacco Use Types Packs/Day Years [...] How often do you attend chur or evangelical services? Never 06/04/2022 Do you belong to any clubs o r organizations such as buddhism groups, unions, fraternal or athletic groups, or [...] care, and heating? Not very hard 06/04/2022 [facility] [place] of Occupat ional Health - Occupational Stress [...] Master's degree (e.g., MA, MS, Milly, MEd, DATABASE PROGRAMMER, MADELYN) 06/04/2022 Sex and Gender Information Value Date Recorded Sex Assigned at Female 06/04/2022 4:58 PM CDT Gender Identity Female 06/04/2022 4:58 PM CDT Sexual Orientation Straight 06/04/2022 4: 58 PM CDT documented as of this encounter Miscellaneous Notes * Telephone Encounter - Radha Keen APRN, C.N.P. - 10/23/2022 2:04 PM CST Unable to reach patient by phone despite multiple tries. Call will not go through. Sent portal message. WALL SUPERVISOR * Telephone Encounter - Arlette Khan - 10/22/2022 3:15 PM CST Patient is requesting Lyrica refill sent to [facility] in [place]. WALL SUPERVISOR documented in this encounter Plan of Treatment Upcoming Encounters Date Type Department Care Team (Latest Contact Info) Description 09/18/2023 10:15 AM TILT WALL SUPERVISOR Clinical Communication Virtual Review in [address] [address] 09/19/2023 8:10 AM TILT WALL SUPERVISOR Appointment Department of Laboratory Medicine and Pathology, [facility] in [address] [phone] Radha Keen APRN, C.N.P., M.S.N. [address] [place] [phone] 09/19/2023 10:15 AM TILT WALL SUPERVISOR Appointment Department of Radiology, [facility], in [address] [phone] Radha Keen APRN, C.N.P., M.S.N. [address] [place] [phone] 09/19/2023 1:00 PM TILT WALL SUPERVISOR Office Visit Division of Thoracic Surgery in [address] [phone] Radha Keen APRN, C.N.PYesika, M.S.N. [address] [place] [phone] documented as of this encounter Visit Diagnoses Not on filedocumented in this encounter Care Teams Billing And Accounting Staff Assistant Relationship Specialty Start Date End Date Elsewhere, Pcp PCP - General Family Medicine 01/03/18 documented as of this encounter
[2023-09-04 20:32] LABS: Anion Gap 10 mEq/L (7-15); Blood Urea Nitrogen* 15 mg/dL (7-30); Carbon Dioxide* 26 mmol/L (20-32); Creatinine* 0.6 mg/dL (0.5-1.5); Est. Creatinine Clearance* 52.05; Estimated Glomerular Filt Rate 96 ml/min; Glucose* 112 mg/dL (60-115)
[2023-09-04 20:54] LABS: PCR FLU A Negative PCR FLU A (Negative); PCR FLU B Negative PCR FLU B (Negative); PCR RSV Negative PCR RSV (Negative); SARS PCR* POSITIVE SARS-CoV-2 (Negative)
[2023-09-04 21:55] LABS: Appearance Urine Clear (Clear); Bilirubin Urine Negative (Negative); Blood Urine 1+ (Negative); Color Urine Yellow (Yellow); Glucose Urine Negative (Negative); Ketones Urine Negative (Negative); Leukocyte Esterase Urine Negative (Negative); Nitrite Urine Negative (Negative); Protein Urine 1+ (Negative); Specific Gravity Urine 1.015 (1.000-1.030); Urobilinogen Urine 0.2 (0.2-1.0)
[2023-09-04 21:59] LABS: NT Pro B Type NatriureticPept* 418 pg/mL; Troponin I* < 0.01 ng/mL (0.01-0.04)
[2023-09-04 22:24] LABS: RBC Urine 0-2 (0-2); WBC Urine 0-2 (0-5)
[2023-09-04] MEDS: 0.9 % SODIUM CHLORIDE 1000 ml 1,000 ML IV (22:28)
[2023-09-04] MEDS: cefTRIAXone 1 GM in 0.9 % SODIUM CHLORIDE Mini-bag 100 ML IVPB (22:30)
[2023-09-04] MEDS: IBUPROFEN 200 MG TABLET 600 MG PO (22:30)
[2023-09-04] MEDS: AZITHROMYCIN 100 MG/ML inj 500 MG IVPB (22:30)
--- NOTE | 2023-09-04 22:32 | CRLHL7_ITS ---
For Patients: As a result of the Century Cures Act, medical imaging exams and procedure reports are released immediately into your electronic medical record. You may view this report before your referring provider. If you have questions, please contact your health care provider. INDICATION: HYPOXIA, COUGH, HX THYMECTOMY. TECHNIQUE: CT chest PE was acquired with 95 cc Isovue 370 IV contrast. Permanently recorded images are archived. COMPARISON: Chest CT 05/12/2022. FINDINGS: Heart and vasculature: Contrast opacification of the pulmonary arterial tree is adequate. No sign of pulmonary embolism. Heart size is normal. Thoracic aorta and pulmonary artery are normal in caliber. Median sternotomy. CABG postsurgical changes. No pericardial effusion. Lungs and pleura: Diffuse patchy ground-glass opacities throughout the lower lobes and to a lesser degree within the inferior upper lobes and right middle lobe. No pleural effusion or pneumothorax. Lymph nodes/mediastinum: No mediastinal, hilar, or axillary adenopathy. Chest wall: No masses. Thyroid: Unremarkable. Upper abdomen: No acute or significant findings. Bones: Subacute right lateral 4th, 5th, and 6th rib fractures. Acute, mildly displaced 7th and 8th lateral rib fractures. Chronic posterolateral left 8th rib fracture. IMPRESSION: 1. No pulmonary embolism. 2. Diffuse patchy ground-glass opacities throughout the lower lobes and to a lesser degree the upper lobes and right middle lobe, most likely representing multilobar pneumonia. Recommend follow-up imaging after treatment to ensure resolution. Please note that all CT scans at this facility use dose modulation, iterative reconstruction, and/or weight-based dosing when appropriate to reduce radiation dose to as low as reasonably achievable. Dictated by Eyad Pineda MD @ 09/05/2023 12:23:44 AM (Electronically Signed)
--- NOTE | 2023-09-04 22:43 | ED.NURSE ---
ED nurse maren tubes for stat procalcitonin and stat d-dimer. Notified lab to run these two labs. Lab in agreement with plan of care and will run labs as soon as able.
[2023-09-04 22:45] LABS: SARS Antigen* POSITIVE (Negative)
--- NOTE | 2023-09-04 22:49 | P.IMHP_ITS ---
Hospitalist- H&P: HPI History of Present Illness Date Seen: 09/04/23 Chief complaint: Covid+, short of breath Narrative: Alexia Phillips is a 73 year old female admitted with fever cough hypoxia fatigue malaise for 1 month. Patient was diagnosed with COVID infection on 08/03/2023. She reports at that time she had fever cough dyspnea fatigue malaise. The fever resolved after about 4 days. Her other symptoms persisted. On August 15 she was seen by primary care and started on doxycycline. The course of doxycycline was reported to be of no help. At the end of July she was seen in the emergency department for her rib pain from so much coughing. Since then she has had recurrence of the fever and her dyspnea is getting worse. In the emergency department she was found to be hypoxic. Chest x-ray shows by lateral infiltrates. COVID test remains positive. She has no history of heart or lung disease. She is a nonsmoker. 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 That procedure was uncomplicated. Review of Systems Narrative: She reports prominent fatigue, dyspnea, malaise, cough, pleuritic chest pain, poor appetite, recurrence of fever. 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) Hot flashes due to menopause ?N95.1 - Menopausal and female climacteric states (ICD-10) Osteoporosis ?M81.0 - Age-related osteoporosis without current pathological fracture (ICD- 10) Osteopenia (2017) ?M85.80 - Other specified disorders of bone density and structure, unspecified site (ICD-10) Left shoulder pain ?M25.512 - Pain in left shoulder (ICD-10) History of in vitro fertilization ?Z98.890 - Other specified postprocedural states (ICD-10) History of fracture of wrist (08/2017) ?Z87.81 - Personal history of (healed) traumatic fracture (ICD-10) Surgical History 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) ?Z90.89 - Acquired absence of other organs (ICD-10) History of total abdominal hysterectomy and bilateral salpingo-oophorectomy (2003) ?Z90.710 - Acquired absence of both cervix and uterus (ICD-10) ?Z90.722 - Acquired absence of ovaries, bilateral (ICD-10) ?Z90.79 - Acquired absence of other genital organ(s) (ICD-10) History of surgery on wrist (~2018) ?Z98.890 - Other specified postprocedural states (ICD-10) History of colonoscopy (2018) ?Z98.890 - Other specified postprocedural states (ICD-10) History of bilateral cataract extraction (2018) ?Z98.41 - Cataract extraction status, right eye (ICD-10) ?Z98.42 - Cataract extraction status, left eye (ICD-10) Family History Father Bladder cancer, Onset Age: 60 High blood pressure Paternal Grandfather Coronary artery disease Mother Ovarian cancer, Onset Age: 65 Sister Thyroid disease Social History (Updated 09/04/23 @ 22:53 by Master Hawkins MD) Narrative: exercises regularly- 3-4/week gym, weights, cardio non-smoker rarely consumes alcohol lives in lives with 25 yo adopted Aspergers son Her sister Rea Purcell from [place] is healthcare power of assistant prosecuting attorney. Code status is full What is your current living situation?: I presently have a place to live Problems where you live: no known problems In the past 12 months, utilities in danger of being shut off: no In past 12 months, lack of transportation kept you from medical appts, meetings, work, or getting things needed for daily living: no In the past 12 mos, have been you worried that your food would run out before you had money to buy more?: never true In the past 12 mos, the food you bought just didn't last and you didn't have money to buy more?: never true Smoking Status: Never smoker How often do you have a drink containing alcohol: monthly or less How often do you have six or more drinks on one occasion: Never AUDIT-C Alcohol total score: 1 Non-prescribed substance use: denies use How often does anyone, including family, friends and others, physically hurt you : never How often does anyone, including family, friends and others, insult or talk down to you: never How often does anyone, including family, friends and others, threaten you with harm: never How often does anyone, including family, friends and others, scream or curse at you: never Little interest or pleasure in doing things: not at all Feeling down, depressed, or hopeless: not at all Meds Home Medications and Allergies Home Medications Medication Instructions Recorded Confirmed Type acetaminophen 500 mg tablet mg PO .As Needed as needed PRN 03/14/22 08/15/23 History ascorbic acid (vitamin C) 1,000 mg 1 g PO DAILY 03/14/22 08/15/23 History tablet cholecalciferol (vitamin D3) 50 2,000 unit PO DAILY 03/14/22 08/15/23 History mcg (2,000 unit) capsule cyanocobalamin (vitamin B-12) 1,000 mcg PO .weekly 03/14/22 08/15/23 History 1,000 mcg tablet multivitamin with minerals-ferrous tab PO DAILY 03/14/22 08/15/23 History sulfate 4.5 mg iron tablet (One Daily Multivitamins with Minerals) zinc 50 mg tablet 50 mg PO QDAY 03/14/22 08/15/23 History glucosamine chondroi 2 tab PO DAILY 01/01/23 08/15/23 History estradiol 0.5 mg tablet 0.5 mg PO .Every 3 days 05/08/23 08/15/23 History Allergies Allergy/AdvReac Type Severity Reaction Status Date / Time penicillin V Allergy Mild Rash Verified 09/04/23 22:48 Sulfa (Sulfonamide Allergy Mild Verified 09/04/23 22:48 Antibiotics) Exam Narrative: Exam Narrative: She is alert and appears in mild respiratory distress with increased rate and work of breathing. She gives her own history and is oriented to her circumstances. Oropharynx is normal. Eyes normal. No facial asymmetry. Neck is supple without mass or adenopathy. Respirations with bibasilar crackles. No wheezing. Fair air exchange all lung wood. Cardiovascular: S1, S2, regular rate and rhythm. No murmur gallop or rub. Abdomen: Bowel sounds active. Abdomen is soft without tenderness or mass. Extremities without edema. She has intact peripheral pulses. There is no rash. Const: Vital Signs, click to edit/add: Vital Signs - 24 hr 09/04/23 19:47 09/04/23 19:53 09/04/23 20:00 Temperature 103.3 F H Pulse Rate 110 H 119 H Pulse Rate [Pulse Oximeter] 111 H Respiratory Rate 30 H Blood Pressure Blood Pressure [Le ft Upper Arm] 195/113 H Pulse Oximetry 86 L 96 94 Oxygen Delivery Me thod Room Air Oxygen Flow Rate 09/04/23 20:15 09/04/23 20:30 09/04/23 20:45 Temperature Pulse Rate 107 H 103 H 103 H Pulse Rate [Pulse Oximeter] Respiratory Rate Blood Pressure Blood Pressure [Le ft Upper Arm] Pulse Oximetry 96 95 96 Oxygen Delivery Me thod Oxygen Flow Rate 09/04/23 21:00 09/04/23 21:15 09/04/23 21:22 Temperature Pulse Rate 98 96 Pulse Rate [Pulse Oximeter] Respiratory Rate Blood Pressure Blood Pressure [Le ft Upper Arm] Pulse Oximetry 95 95 94 Oxygen Delivery Me thod Oxygen Flow Rate 09/04/23 21:22 09/04/23 21:30 09/04/23 22:14 Temperature Pulse Rate 91 88 Pulse Rate [Pulse Oximeter] Respiratory Rate Blood Pressure Blood Pressure [Le ft Upper Arm] Pulse Oximetry 94 96 94 Oxygen Delivery Me thod Nasal Cannula Oxygen Flow Rate 2 09/04/23 22:15 09/04/23 22:16 09/04/23 22:30 Temperature Pulse Rate 86 83 81 Pulse Rate [Pulse Oximeter] Respiratory Rate Blood Pressure 143/56 H Blood Pressure [Le ft Upper Arm] Pulse Oximetry 95 95 97 Oxygen Delivery Me thod Oxygen Flow Rate Documenting provider has reviewed patient's vital signs: yes Hospitalist - H&P: Result Labs Labs: Short CBC 09/04/23 Range/Units 20:01 WBC 6.99 (4.50-11.00) K/uL Hgb 12.4 (12.0-16.0) gm/dL Hct 37.2 (33.0-51.0) % Plt Count 448 H (140-440) K/uL BMP 09/04/23 20:01 Sodium 131 L Potassium 3.6 Chloride 95 L Carbon Dioxide 26 BUN 15 Creatinine 0.6 Glucose 112 Calcium 9.0 Cardiac Enzymes 09/04/23 Range/Units 20:01 Troponin I < 0.01 L (0.01-0.04) ng/mL Urine 09/04/23 Range/Units 21:44 Urine Color Yellow (Yellow) Urine Appearance Clear (Clear) Urine pH 7.0 (5.0-8.5) Ur Specific [place] 1.015 (1.000-1.030) Urine Protein 1+ A (Negative) Urine Glucose (UA) Negative (Negative) Imaging Chest x-ray: Radiologist's impression: INDICATION: Hypoxia, fever. TECHNIQUE: Chest 1 view. COMPARISON: Chest radiograph 10/02/2022. FINDINGS: There are patchy opacities in the lower lungs bilaterally suspicious for pneumonia. No pleural effusion or pneumothorax. Heart size and pulmonary vasculature are within normal limits. Sternotomy. Surgical clips along the right mediastinum. Asymmetric density in the right hilum. There are multiple subacute to chronic appearing right lateral rib fractures which are new since prior exam. IMPRESSION: 1. Patchy bibasilar opacities suspicious for pneumonia. 2. Asymmetric density in the right hilum could be due to lymphadenopathy. 3. Multiple new right lateral rib fractures which have a subacute to chronic appearance. Assessment and Plan Assessment and plan (1) Bilateral pneumonia: Problem comment: Presentation is atypical for COVID infection as well as bacterial infections with the prolonged course of illness. Will treat as community-acquired pneu monia. No COVID treatment at this time due to presentation 1 month from diagnosis Status: Acute (2) Hypoxic respiratory failure: Problem comment: Chest CT pending Status: Acute (3) Rib pain on right side: Problem comment: New rib fractures probably from her severe cough Status: Acute (4) COVID-19: Status: Acute (5) History of thymectomy: Problem comment: thymoma , not ca not according to patient. entire timor gone, no additional treatment needed Status: Acute Plan Patient admitted to the hospital for treatment of hypoxic respiratory failure and pneumonia. Oxygen, IV antibiotics, Total time spent is 80 minutes, 50 minutes in coordination of care discussing with patient other providers ongoing management of pneumonia and COVID and hypoxia
[2023-09-04 22:54] LABS: D Dimer Quantitative* 1.61 ug/ml (0.00-0.50)
[2023-09-04 23:03] LABS: S pneumo Ag Urine S. pneumo Negative (Negative)
[2023-09-04 23:04] LABS: Procalcitonin* 0.26 ng/mL (<0.50)
[2023-09-05] VITALS (10 sets, daily range): BP systolic 120–145; BP diastolic 57–71; PULSE 76–100; RESP 16–22; TEMP 36.5–39.1; O2SAT 94–98
[2023-09-05] MEDS: ACETAMINOPHEN 325 MG TABLET 650 MG PO ×4 (03:39→23:36)
[2023-09-05 06:24] LABS: HCO3 VBG 28 mmol/L (21-28); PCO2 VBG 43 mmHG (40-50); PO2 VBG 36.9 mmHG (25-47); pH VBG 7.428 (7.32-7.43)
[2023-09-05 06:30] LABS: Basophils Absolute Auto 0.01 K/uL (0.00-0.30); Basophils Percent Auto 0.2 % (0.0-3.0); Hematocrit 30.9 % (33.0-51.0); Hemoglobin* 10.2 gm/dL (12.0-16.0); Immature Granulocytes Abs Auto 0.03 K/uL (0.00-0.30); Immature Granulocytes Pct Auto 0.6 %; Lymphocytes Percent Auto 12.4 % (20-44); Mean Corpuscular HGB Conc 33 gm/dL (32-36); Mean Corpuscular Hemoglobin 29 pg (26-34); Mean Corpuscular Volume 88 fL (80-100); Monocytes Percent Auto 7.7 % (0.0-11.0); Neutrophils Percent Auto 79.1 % (42.0-72.0); Platelet Count* 367 K/uL (140-440); White Blood Count* 5.34 K/uL (4.50-11.00)
[2023-09-05 06:43] LABS: Slide Review Reflex No
[2023-09-05] MEDS: OMEPRAZOLE 20 MG CAPSULE DR 40 MG PO (06:45)
--- NOTE | 2023-09-05 06:58 | PC.NURSE ---
Pt admitted to med/surg from ED at 2315 last night. She is noted to be alert & oriented x 4 and able to make needs known. Pt able to transfer/ambulate independently in room. Pt is on telemetry with NSR noted. EKG and MRSA swab completed per orders. VSS. Pt is currently on 2 liters oxygen via NC with O2 sat of 99% noted on arrival to med/surg unit. Pt states she has had intermittent cough at home since being diagnosed with Covid on 08/03/23. She states she has had both a productive and dry cough noted at times though has not inspected sputum when productive cough noted at home. Bilateral lung?bases noted to be diminished upon auscultation. Late supper served upon pt?s arrival to / with pt eating 100% of soup and sandwich provided. She has been continent of bladder and reports last BM 09/04/23. Pt states she takes Estradiol daily though current order reads to take every 3 days. Ornamenter Hand did leave a note for hospitalist to address this this morning. Pt noted to have perspiration and chills this morning though was afebrile with temp of 98.0. PRN Tylenol given for c/o 5/10 mid back pain which was effective. Pt has been continent of bladder. IV to R AC SL.
[2023-09-05 07:00] LABS: Chloride* 103 mmol/L (96-114); Potassium* 4.2 mmol/L (3.6-5.1); Sodium* 134 mmol/L (135-149)
[2023-09-05 07:02] LABS: Creatinine* 0.5 mg/dL (0.5-1.5); Est. Creatinine Clearance* 52.05; Estimated Glomerular Filt Rate 100 ml/min
[2023-09-05 07:03] LABS: Anion Gap 4 mEq/L (7-15); Blood Urea Nitrogen* 13 mg/dL (7-30); Carbon Dioxide* 27 mmol/L (20-32); Glucose* 107 mg/dL (60-115)
[2023-09-05 07:04] LABS: Calcium* 8.2 mg/dL (8.4-10.6)
[2023-09-05 07:17] LABS: C Reactive Protein* 11.5 mg/dL (0.5-1.0)
[2023-09-05] MEDS: METHYLPREDNISOLONE SOD SUCC 62.5 MG/ML (125) 125 MG IVP ×3 (09:40→22:03)
[2023-09-05] MEDS: CEFEPIME HCL 2 GM in 0.9 % SODIUM CHLORIDE Mini-bag 100 ML IVPB ×2 (09:41→17:50)
[2023-09-05] MEDS: 0.9 % SODIUM CHLORIDE 250 ml IV (09:41)
[2023-09-05] MEDS: SODIUM CHLORIDE 0.9 % (FLUSH) 10 ML SYRINGE 5 ML IVF ×2 (09:41→22:03)
[2023-09-05] MEDS: BUDESONIDE 0.5 MG/2ML NEB NEB ×2 (09:42→22:02)
--- NOTE | 2023-09-05 10:03 | PM.IMPN1 ---
Progress Note: A&P Assessment and plan (1) Hypoxic respiratory failure: Problem details: Pulmonary hygiene. Steroids. Oxygen supplementation. Budesonide nebs. P.r.ana Meza. RT to evaluate. Cefepime and azithromycin to cover bacterial etiology and specifically Legionella Steroids to cover the COVID 19 positive antigen Suspect she will be here for 2-3 days Status: Acute (2) Legionella pneumonia: Problem details: Will continue IV azithromycin at 500 Q 24 Adding IV Solu-Medrol Status: Acute (3) COVID-19: Problem details: Symptomatic with a positive PCR since early July. Antigen still positive. Status: Acute (4) Rib pain on right side: Problem details: New rib fractures probably from her severe cough -Subacute right lateral 4th, 5th, and 6th rib fractures. Acute, mildly displaced 7th and 8th lateral rib fractures. 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 entire timor gone, no additional treatment needed Status: Acute Subjective Date Seen: 09/05/23 Interval history: Daily Progress Note - Hospital Medicine Day #:2 CC: Hypoxic respiratory failure secondary to Legionella pneumonia and COVID-19 OVERNIGHT UPDATES FROM STAFF & MED, LAB, IMAGING UPDATES -remains on 1-2 L nasal cannula oxygen -urine antigen positive for Legionella -COVID antigen still positive -WBC count normal -blood gas normal -CRP up from 8.2-11.5 -sodium has improved to 134 CT chest reviewed IMPRESSION: 1. No pulmonary embolism. 2. Diffuse patchy ground-glass opacities throughout the lower lobes and to a lesser degree the upper lobes and right middle lobe, most likely representing multilobar pneumonia. Recommend follow-up imaging after treatment to ensure resolution. Blood cultures negative to date Objective: Looks acutely ill. Febrile. Vitals: see above Lungs: Bilateral crackles. No significant respiratory distress Cardiac: S1S2. Disposition/Potential discharge - Likely to return to previous living situation. Today I spent 50minutes seeing the patient, reviewing Expanse and EPIC notes/diagnostics, discussing the care plan with our care time that includes social work, PT/OT, pharmacy, RT, mcc and documenting my impressions and plan in the medical record. Exam Const: Vital Signs, click to edit/add: Vital Signs - 24 hr 09/04/23 19:47 09/04/23 19:53 09/04/23 20:00 Temperature 103.3 F H Pulse Rate 110 H 119 H Pulse Rate [Left P ulse Oximeter] Pulse Rate [Pulse Oximeter] 111 H Respiratory Rate 30 H Blood Pressure Blood Pressure [Le ft Arm] Blood Pressure [Le ft Upper Arm] 195/113 H Pulse Oximetry 86 L 96 94 Oxygen Delivery Me thod Room Air Oxygen Flow Rate 09/04/23 20:15 09/04/23 20:30 09/04/23 20:45 Temperature Pulse Rate 107 H 103 H 103 H Pulse Rate [Left P ulse Oximeter] Pulse Rate [Pulse Oximeter] Respiratory Rate Blood Pressure Blood Pressure [Le ft Arm] Blood Pressure [Le ft Upper Arm] Pulse Oximetry 96 95 96 Oxygen Delivery Me thod Oxygen Flow Rate 09/04/23 21:00 09/04/23 21:15 09/04/23 21:22 Temperature Pulse Rate 98 96 Pulse Rate [Left P ulse Oximeter] Pulse Rate [Pulse Oximeter] Respiratory Rate Blood Pressure Blood Pressure [Le ft Arm] Blood Pressure [Le ft Upper Arm] Pulse Oximetry 95 95 94 Oxygen Delivery Me thod Oxygen Flow Rate 09/04/23 21:22 09/04/23 21:30 09/04/23 22:07 Temperature Pulse Rate 91 Pulse Rate [Left P ulse Oximeter] Pulse Rate [Pulse Oximeter] Respiratory Rate Blood Pressure Blood Pressure [Le ft Arm] Blood Pressure [Le ft Upper Arm] Pulse Oximetry 94 96 94 Oxygen Delivery Me thod Nasal Cannula Oxygen Flow Rate 2 09/04/23 22:14 09/04/23 22:15 09/04/23 22:16 Temperature Pulse Rate 88 86 83 Pulse Rate [Left P ulse Oximeter] Pulse Rate [Pulse Oximeter] Respiratory Rate Blood Pressure 143/56 H Blood Pressure [Le ft Arm] Blood Pressure [Le ft Upper Arm] Pulse Oximetry 94 95 95 Oxygen Delivery Me thod Oxygen Flow Rate 09/04/23 22:30 09/04/23 23:20 09/04/23 23:25 Temperature 98.1 F Pulse Rate 81 Pulse Rate [Left P ulse Oximeter] Pulse Rate [Pulse Oximeter] Respiratory Rate 20 20 Blood Pressure Blood Pressure [Le ft Arm] 133/64 Blood Pressure [Le ft Upper Arm] Pulse Oximetry 97 99 99 Oxygen Delivery Me thod Room Air Nasal Cannula Oxygen Flow Rate 2 2 09/04/23 23:32 09/05/23 00:42 09/05/23 03:29 Temperature 99.3 F Pulse Rate 78 Pulse Rate [Left P ulse Oximeter] 80 Pulse Rate [Pulse Oximeter] Respiratory Rate 20 18 Blood Pressure Blood Pressure [Le ft Arm] 139/69 Blood Pressure [Le ft Upper Arm] Pulse Oximetry 99 96 Oxygen Delivery Me thod Nasal Cannula Nasal Cannula Oxygen Flow Rate 2 2 09/05/23 09:13 Temperature 102.3 F H Pulse Rate Pulse Rate [Left P ulse Oximeter] 100 Pulse Rate [Pulse Oximeter] Respiratory Rate 18 Blood Pressure Blood Pressure [Le ft Arm] 145/71 H Blood Pressure [Le ft Upper Arm] Pulse Oximetry 95 Oxygen Delivery Me thod Nasal Cannula Oxygen Flow Rate 2 Labs Labs: Laboratory Results - last 24 hr 09/04/23 09/04/23 09/04/23 20:00 20:01 20:04 WBC 6.99 RBC 4.26 Hgb 12.4 Hct 37.2 MCV 87 MCH 29 MCHC 33 RDW Coeff of [place] 13.9 Plt Count 448 H Neut % (Auto) 85.5 H Lymph % (Auto) 9.0 L [place] % (Auto) 5.3 Eos % (Auto) 0.0 Baso % (Auto) 0.1 Neut # (Auto) 6.00 Lymph # (Auto) 0.60 L [place] # (Auto) 0.40 Eos # (Auto) 0.00 Baso # (Auto) 0.01 Abs Immat Gran (auto) 0.01 Imm/Tot Granulo (auto) 0.1 D-Dimer Quant (PE/DVT) VBG pH VBG pCO2 VBG pO2 VBG HCO3 Sodium 131 L Potassium 3.6 Chloride 95 L Carbon Dioxide 26 Anion Gap 10 BUN 15 Creatinine 0.6 Estimated Creat Clear 52.05 Estimated GFR 96 Glucose 112 Lactate 0.9 Calcium 9.0 Troponin I < 0.01 L C-Reactive Protein NT-Pro-B Natriuret Pep 418 Procalcitonin 0.26 Urine Color Urine Appearance Urine pH Ur Specific [place] Urine Protein Urine Glucose (UA) Urine Ketones Urine Blood Urine Nitrite Urine Bilirubin Urine Urobilinogen Ur Leukocyte Esterase Urine RBC Urine WBC Ur Squamous Epith Cells Urine Bacteria Urine L. pneumophilia Ag Urine Strep pneumoniae Ag SARS-CoV-2 (PCR) POSITIVE SARS-CoV-2 A Influenza Type A (PCR) Negative PCR FLU A Influenza Type B (PCR) Negative PCR FLU B RSV (PCR) Negative PCR RSV SARS-CoV-2 Ag (Rapid) Lab Acknowledgement Test Added 09/04/23 09/04/23 09/04/23 20:25 21:44 22:00 WBC RBC Hgb Hct MCV MCH MCHC RDW Coeff of [place] Plt Count Neut % (Auto) Lymph % (Auto) [place] % (Auto) Eos % (Auto) Baso % (Auto) Neut # (Auto) Lymph # (Auto) [place] # (Auto) Eos # (Auto) Baso # (Auto) Abs Immat Gran (auto) Imm/Tot Granulo (auto) D-Dimer Quant (PE/DVT) 1.61 H VBG pH VBG pCO2 VBG pO2 VBG HCO3 Sodium Potassium Chloride Carbon Dioxide Anion Gap BUN Creatinine Estimated Creat Clear Estimated GFR Glucose Lactate Calcium Troponin I C-Reactive Protein NT-Pro-B Natriuret Pep Procalcitonin Urine Color Yellow Urine Appearance Clear Urine pH 7.0 Ur Specific [place] 1.015 Urine Protein 1+ A Urine Glucose (UA) Negative Urine Ketones Negative Urine Blood 1+ A Urine Nitrite Negative Urine Bilirubin Negative Urine Urobilinogen 0.2 Ur Leukocyte Esterase Negative Urine RBC 0-2 Urine WBC 0-2 Ur Squamous Epith Cells Not Reportable Urine Bacteria None Urine L. pneumophilia Ag L. pneumo POSITIVE A Urine Strep pneumoniae Ag S. pneumo Negative SARS-CoV-2 (PCR) Influenza Type A (PCR) Influenza Type B (PCR) RSV (PCR) SARS-CoV-2 Ag (Rapid) POSITIVE A Lab Acknowledgement Test Added 09/05/23 05:40 WBC 5.34 RBC 3.50 L Hgb 10.2 L Hct 30.9 L MCV 88 MCH 29 MCHC 33 RDW Coeff of [place] 14.0 Plt Count 367 Neut % (Auto) 79.1 H Lymph % (Auto) 12.4 L [place] % (Auto) 7.7 Eos % (Auto) 0.0 Baso % (Auto) 0.2 Neut # (Auto) 4.20 Lymph # (Auto) 0.70 L [place] # (Auto) 0.40 Eos # (Auto) 0.00 Baso # (Auto) 0.01 Abs Immat Gran (auto) 0.03 Imm/Tot Granulo (auto) 0.6 D-Dimer Quant (PE/DVT) VBG pH 7.428 VBG pCO2 43 VBG pO2 36.9 VBG HCO3 28 Sodium 134 L Potassium 4.2 Chloride 103 Carbon Dioxide 27 Anion Gap 4 L BUN 13 Creatinine 0.5 Estimated Creat Clear 52.05 Estimated GFR 100 Glucose 107 Lactate Calcium 8.2 L Troponin I C-Reactive Protein 11.5 H NT-Pro-B Natriuret Pep Procalcitonin Urine Color Urine Appearance Urine pH Ur Specific [place] Urine Protein Urine Glucose (UA) Urine Ketones Urine Blood Urine Nitrite Urine Bilirubin Urine Urobilinogen Ur Leukocyte Esterase Urine RBC Urine WBC Ur Squamous Epith Cells Urine Bacteria Urine L. pneumophilia Ag Urine Strep pneumoniae Ag SARS-CoV-2 (PCR) Influenza Type A (PCR) Influenza Type B (PCR) RSV (PCR) SARS-CoV-2 Ag (Rapid) Lab Acknowledgement
[2023-09-05] MEDS: AZITHROMYCIN 500 MG in 0.9 % SODIUM CHLORIDE 250 ml 250 ML 255 MG IVPB (10:48)
[2023-09-05] MEDS: ENOXAPARIN 40 MG/0.4 ML INJ SUBCUT (22:02)
--- NOTE | 2023-09-05 22:39 | PC.NURSE ---
VSS, 2L NC oxygen sats in mid to high 90s. Lower back pain of 5- PRN tylenol given w/ relief. Tele- NSR. LS w/ crackles in bases. Frequent dry cough. SOB occasionally. Ate 100% of dinner, drinking well. Up to bathroom independently, 600 cc out. Queasy stomach- declined intervention. Loose stools x2. Up independently in room. PIV in left FA- SL'd. Will continue to monitor, follow POC, and keep pt and family updated. Donna Rosario RN
[2023-09-06] VITALS (11 sets, daily range): BP systolic 139–155; BP diastolic 77–85; PULSE 76–86; RESP 14–20; TEMP 36.6–37; O2SAT 90–97
[2023-09-06] MEDS: CEFEPIME HCL 2 GM in 0.9 % SODIUM CHLORIDE Mini-bag 100 ML IVPB (01:47)
[2023-09-06] MEDS: METHYLPREDNISOLONE SOD SUCC 62.5 MG/ML (125) 125 MG IVP (02:53)
--- NOTE | 2023-09-06 05:38 | PC.NURSE ---
Shift note: Pt is afebrile overnight, still on 2L Os via NC, SOB with exertion. She is independent in the room, no c/o nausea, chronic pain in lower back and head ache treated per eMAR with relief.
[2023-09-06 06:38] LABS: HCO3 VBG 29 mmol/L (21-28); PCO2 VBG 44 mmHG (40-50); PO2 VBG 30.1 mmHG (25-47)
[2023-09-06] MEDS: OMEPRAZOLE 20 MG CAPSULE DR 40 MG PO (06:43)
[2023-09-06 07:01] LABS: Hematocrit 33.7 % (33.0-51.0); Hemoglobin* 11.2 gm/dL (12.0-16.0); Mean Corpuscular HGB Conc 33 gm/dL (32-36); Mean Corpuscular Hemoglobin 29 pg (26-34); Mean Corpuscular Volume 88 fL (80-100); Platelet Count* 415 K/uL (140-440); Red Blood Count 3.84 m/uL (4.00-5.20); White Blood Count* 4.02 K/uL (4.50-11.00)
[2023-09-06 07:31] LABS: Albumin* 3.9 g/dL (3.3-5.0); Chloride* 102 mmol/L (96-114)
[2023-09-06 07:32] LABS: Potassium* 4.3 mmol/L (3.6-5.1); Sodium* 137 mmol/L (135-149)
[2023-09-06 07:34] LABS: Bilirubin Total* 0.3 mg/dL (0.1-1.5); Creatinine* 0.4 mg/dL (0.5-1.5); Est. Creatinine Clearance* 52.05; Estimated Glomerular Filt Rate 106 ml/min; Slide Review Reflex No
[2023-09-06 07:35] LABS: Alanine Aminotransferase* 26 U/L (4-35); Alkaline Phosphatase* 81 U/L (40-150); Anion Gap 6 mEq/L (7-15); Aspartate Amino Transferase* 35 U/L (12-35); Blood Urea Nitrogen* 13 mg/dL (7-30); Calcium* 8.8 mg/dL (8.4-10.6); Carbon Dioxide* 29 mmol/L (20-32); Glucose* 155 mg/dL (60-115); Total Protein* 6.3 g/dL (6.0-8.3)
[2023-09-06 07:49] LABS: Procalcitonin* 0.16 ng/mL (<0.50)
[2023-09-06 07:59] LABS: C Reactive Protein* 12.4 mg/dL (0.5-1.0); NT Pro B Type NatriureticPept* 608 pg/mL; Troponin I* < 0.01 ng/mL (0.01-0.04)
[2023-09-06 08:31] LABS: Thyroid Stimulating Hormone* 0.208 uIU/mL (0.270-4.20)
[2023-09-06 08:50] LABS: Magnesium* 2.6 mg/dL (1.5-2.6)
[2023-09-06] MEDS: AZITHROMYCIN 250 MG TABLET 500 MG PO (09:04)
[2023-09-06] MEDS: BUDESONIDE 0.5 MG/2ML NEB NEB ×2 (09:04→20:09)
[2023-09-06] MEDS: predniSONE 20 MG TABLET 40 MG PO (09:05)
[2023-09-06] MEDS: SODIUM CHLORIDE 0.9 % (FLUSH) 10 ML SYRINGE 5 ML IVF ×2 (09:06→20:11)
[2023-09-06] MEDS: ACETAMINOPHEN 325 MG TABLET 650 MG PO ×2 (09:08→18:11)
[2023-09-06] MEDS: levoFLOXacin 500 MG TABLET PO (11:03)
--- NOTE | 2023-09-06 11:21 | P.IMPN_ITS ---
Progress Note: A&P Assessment and plan (1) Hypoxic respiratory failure: Problem details: Pulmonary hygiene. Steroids. Oxygen supplementation. Budesonide jinas. P.rsena Meza. RT to evaluate. previous Cefepime d/c, azithromycin d/c - change to Levaquin 500mg qd - this will cover atypical pneumonia (including the legionella) continue prednisone (transitioned to oral after 4 doses of IV solu-medrol) Appreciate ID consult (recommended the switch from Azithro to Levaquin and that +covid was likely a false positive) Status: Acute (2) Legionella pneumonia: Problem details: levaquin 500mg qd, oral supportive care Status: Acute (3) COVID-19: Problem details: Symptomatic with a positive PCR since early July. Antigen still positive - cross reactive? Status: Acute (4) Rib pain on right side: Problem details: New rib fractures probably from her severe cough -Subacute right lateral 4th, 5th, and 6th rib fractures. Acute, mildly displaced 7th and 8th lateral rib fractures. 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 -urine antigen positive for Legionella -COVID antigen still positive (likely cross-reactive?) -WBC count 4.0 -CRP minimally up from 11.5-12.4 CT chest reviewed IMPRESSION: 1. No pulmonary embolism. 2. Diffuse patchy ground-glass opacities throughout the lower lobes and to a lesser degree the upper lobes and right middle lobe, most likely representing multilobar pneumonia. Recommend follow-up imaging after treatment to ensure resolution. Blood cultures negative to date Objective: Improved from yesterday. Vitals: see above Lungs: Bilateral crackles. No significant respiratory distress Cardiac: S1S2. Disposition/Potential discharge - Likely to return to previous living situation. Today I spent 50minutes seeing the patient, reviewing Expanse and EPIC notes/diagnostics, discussing the care plan with our care time that includes social work, PT/OT, pharmacy, RT, half-way and documenting my impressions and plan in the medical record. Exam Const: Vital Signs, click to edit/add: Vital Signs - 24 hr 09/05/23 11:54 09/05/23 15:00 09/05/23 15:00 Temperature 98.3 F 98.3 F Pulse Rate Pulse Rate [Left P ulse Oximeter] 81 82 Respiratory Rate 22 16 16 Blood Pressure [Le ft Arm] 129/60 131/57 L Blood Pressure [Ri ght Arm] Pulse Oximetry 97 95 95 Oxygen Delivery Me thod Nasal Cannula Room Air Nasal Cannula Oxygen Flow Rate 2 2 2 09/05/23 15:00 09/05/23 15:00 09/05/23 19:00 Temperature 97.7 F Pulse Rate 80 Pulse Rate [Left P ulse Oximeter] 82 76 Respiratory Rate 16 16 Blood Pressure [Le ft Arm] 120/58 L Blood Pressure [Ri ght Arm] Pulse Oximetry 98 Oxygen Delivery Me thod Nasal Cannula Oxygen Flow Rate 2 09/05/23 21:35 09/05/23 23:00 09/05/23 23:00 Temperature Pulse Rate 78 Pulse Rate [Left P ulse Oximeter] 79 Respiratory Rate 16 Blood Pressure [Le ft Arm] Blood Pressure [Ri ght Arm] Pulse Oximetry 98 Oxygen Delivery Me thod Oxygen Flow Rate 09/05/23 23:00 09/05/23 23:00 09/06/23 03:00 Temperature 97.9 F 98.3 F Pulse Rate Pulse Rate [Left P ulse Oximeter] 79 76 Respiratory Rate 16 16 20 Blood Pressure [Le ft Arm] 141/71 H Blood Pressure [Ri ght Arm] Pulse Oximetry 95 94 97 Oxygen Delivery Me thod Nasal Cannula Nasal Cannula Nasal Cannula Oxygen Flow Rate 2 2 2 09/06/23 07:00 09/06/23 07:00 09/06/23 07:36 Temperature 97.9 F Pulse Rate Pulse Rate [Left P ulse Oximeter] 80 80 Respiratory Rate 14 14 14 Blood Pressure [Le ft Arm] Blood Pressure [Ri ght Arm] 139/85 Pulse Oximetry 96 96 Oxygen Delivery Me thod Room Air Nasal Cannula Oxygen Flow Rate 2 09/06/23 10:45 09/06/23 11:05 Temperature 98.3 F Pulse Rate 82 Pulse Rate [Left P ulse Oximeter] 83 Respiratory Rate 20 Blood Pressure [Le ft Arm] Blood Pressure [Ri ght Arm] 145/80 H Pulse Oximetry 90 Oxygen Delivery Me thod Nasal Cannula Oxygen Flow Rate 0.5 Labs Labs: Laboratory Results - last 24 hr 09/06/23 09/06/23 06:12 09:08 WBC 4.02 L RBC 3.84 L Hgb 11.2 L Hct 33.7 MCV 88 MCH 29 MCHC 33 Plt Count 415 VBG pH 7.420 VBG pCO2 44 VBG pO2 30.1 VBG HCO3 29 H Sodium 137 Potassium 4.3 Chloride 102 Carbon Dioxide 29 Anion Gap 6 L BUN 13 Creatinine 0.4 L Estimated Creat Clear 52.05 Estimated GFR 106 Glucose 155 H Calcium 8.8 Magnesium 2.6 Total Bilirubin 0.3 AST 35 ALT 26 Alkaline Phosphatase 81 Troponin I < 0.01 L C-Reactive Protein 12.4 H NT-Pro-B Natriuret Pep 608 Total Protein 6.3 Albumin 3.9 Procalcitonin 0.16 TSH 0.208 L Free T4 1.60 Lab Acknowledgement Test Added
[2023-09-06] MEDS: LACTOBACILLUS ACIDOPHILUS 1 TABLET 1 TAB PO ×2 (12:29→18:11)
--- NOTE | 2023-09-06 13:08 | W.PM.INFDCN ---
Consultation Information Consultation Information Consultation Statement: This patient recommendation is based on a telemedicine consult request which was completed asynchronously through chart review and information provided by the primary physician. The patient was not seen or examined today. The evaluation is consultative in nature and all patient care and treatment decisions can either be accepted or rejected by the patient's primary hospital-based treating physician using their own independent medical judgment for their patient. 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 At [facility], nonsmoker, recently diagnosed with COVID-19 infection on 08/03/23 who presented to [facility] on 09/04 with c/o fever cough, malaise and fatigue for about 1 month. Patient was diagnosed with COVID infection early Jul 2023. She reports at that time she had fever cough dyspnea fatigue malaise. The fever resolved after about 4 days. Her other symptoms persisted. On August 15 she was seen by primary care and started on doxycycline. Apparently despite taking oral doxy, symptoms persisted. At the end of July, she was seen in the emergency department for her rib pain from due to persistent cough and since then she has had recurrence of the fever with worsening dyspnea. Upon arrival to the ED, pt noted to be hypoxic at 86% on RA, tachycardic and tachypneic, febrile up to 103.3. Pt was started on O2 supplementation 2L NC her O2 sat improved to 94-95%, Chest x-ray shows bilateral infiltrates. EKG c/w sinus tachy rate 106, no specific ST or t wave abnormalities, COVID test remains positive with both PCR and Ag. Pt was started on broad spectrum IV Abx and supplemental O2, and was admitted to Medicine for further management. Labs reviewed WBC normal today at 4.02<6.99K on admission, Hg 11.2, plat 415k, sodium 134, AST, ALT normal, CRP 11.5<12.4, Procal 0.16, D dimer 1.6, VBG upon admission PH 7.4, pCO2 43, HCO3 28, Cr 0.6, UA negative for infection, urine strep pneumo Ag negative, urine legionella Ag positive. COVID-19 Ag positive, PCR also positive. 09/04 blood cx NG after 24 hr. Nares MRSA screen negative. Pt clinically improving with decreased O2 requirement, today on minimal O2 1 L NC, afebrile since 09/05 when she spikes 102.3 at 09:13. Tmax 103.3 on 09/04. Primary initially started cefepime + azithromycin, once urine legionella Ag returned positive, cefepime was d/tesfaye by primary team on 09/05 and azithromycin continued. Tele ID consulted on 09/06 for recommendations Re antibiotic management. 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-10) Hot flashes due to menopause ?N95.1 - Menopausal and female climacteric states (ICD-10) Osteoporosis ?M81.0 - Age-related osteoporosis without current pathological fracture (ICD-10) Osteopenia (2017) ?M85.80 - Other specified disorders of bone density and structure, unspecified site (ICD-10) Left shoulder pain ?M25.512 - Pain in left shoulder (ICD-10) History of in vitro fertilization ?Z98.890 - Other specified postprocedural states (ICD-10) History of fracture of wrist (08/2017) ?Z87.81 - Personal history of (healed) traumatic fracture (ICD-10) Surgical History (Updated 09/05/23 @ 15:04 by Stella Durand MD) 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) ?Z90.89 - Acquired absence of other organs (ICD-10) History of total abdominal hysterectomy and bilateral salpingo-oophorectomy (2002) ?Z90.710 - Acquired absence of both cervix and uterus (ICD-10) ?Z90.722 - Acquired absence of ovaries, bilateral (ICD-10) ?Z90.79 - Acquired absence of other genital organ(s) (ICD-10) History of surgery on wrist (~2017) ?Z98.890 - Other specified postprocedural states (ICD-10) History of colonoscopy (2017) ?Z98.890 - Other specified postprocedural states (ICD-10) History of bilateral cataract extraction (2018) ?Z98.41 - Cataract extraction status, right eye (ICD-10) ?Z98.42 - Cataract extraction status, left eye (ICD-10) Family History Father Bladder cancer, Onset Age: 60 High blood pressure Paternal Grandfather Coronary artery disease Mother Ovarian cancer, Onset Age: 65 Sister Thyroid disease Social History (Updated 09/04/23 @ 22:53 by Master Hawkins MD) Narrative: exercises regularly- 3-4/week gym, weights, cardio non-smoker rarely consumes alcohol lives in lives with 25 yo adopted Aspergers son Her sister Rea Purcell from [place] is healthcare power of 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 Code status is full What is your current living situation?: I presently have a place to live Problems where you live: no known problems Problems where you live details: N/A In the past 12 months, utilities in danger of being shut off: no In past 12 months, lack of transportation kept you from medical appts, meetings, work, or getting things needed for daily living: no In the past 12 mos, have been you worried that your food would run out before you had money to buy more?: never true In the past 12 mos, the food you bought just didn't last and you didn't have money to buy more?: never true Highest level of school completed/degree received: Master's degree Smoking Status: Never smoker How often do you have a drink containing alcohol: never How often do you have six or more drinks on one occasion: Never AUDIT-C Alcohol total score: 0 Non-prescribed substance use: denies use Caffeine: Yes (Occasional coffee) How often does anyone, including family, friends and others, physically hurt you: never How often does anyone, including family, friends and others, insult or talk down to you: never How often does anyone, including family, friends and others, threaten you with harm: never How often does anyone, including family, friends and others, scream or curse at you: never Little interest or pleasure in doing things: not at all Feeling down, depressed, or hopeless: not at all service: No Home Medications and Allergies Home Medications and Allergies Inpatient Medications: Active Medications Generic Name Dose Route Start Last Admin Trade Name Freq PRN Reason Stop Dose Admin Acetaminophen 650 mg 09/04/23 22:05 09/06/23 09:08 Acetaminophen 325 Mg Tablet PO 650 mg Q4H PRN Administration Albuterol/Ipratropium 1 neb 09/05/23 09:04 Iprat-Albut 0.5-2.5 Mg/3 Ml Neb IH Q2H PRN Budesonide 0.5 mg 09/05/23 09:00 09/06/23 09:04 Budesonide 0.5 Mg/2ml Neb NEB 0.5 mg BID MIGUEL Administration Enoxaparin Sodium 40 mg 09/05/23 21:00 09/05/23 22:02 Enoxaparin 40 Mg/0.4 Ml Inj SUBCUT 40 mg HS MIGUEL Administration Estradiol 1 mg 09/06/23 21:00 Estradiol 1 Mg Tablet PO HS MIGUEL Lactobacillus Acidophilus 1 tab 09/06/23 12:00 09/06/23 12:29 Lactobacillus Acidophilus 1 Tablet PO 1 tab TIDWM MIGUEL Administration Levofloxacin 500 mg 09/06/23 11:00 09/06/23 11:03 Levofloxacin 500 Mg Tablet PO 500 mg Q24H MIGUEL Administration Melatonin 3 mg 09/04/23 22:05 Melatonin 3 Mg Tablet PO HS PRN Omeprazole 20 mg 09/06/23 07:00 09/06/23 07:42 Omeprazole [address] PO Not Given DAILY@0700 MIGUEL Oxycodone HCl 2.5 mg 09/04/23 22:05 Oxycodone 5 Mg Tablet PO Q2H PRN Pain Prednisone 40 mg 09/06/23 08:00 09/06/23 09:05 Prednisone 20 Mg Tablet PO 40 mg DAILYWM MIGUEL Administration Senna/Docusate Sodium 1 - 2 tab 09/04/23 22:05 Sennosides/Docusate Tablet PO BID PRN Sodium Chloride 5 ml 09/05/23 09:00 09/06/23 09:06 Sodium Chloride 0.9 % (Flush) 10 Ml Syringe IVF 5 ml BID MIGUEL Administration Sodium Chloride 3 ml 09/05/23 09:04 Sodium Chloride 0.9% 3ml Neb NEB Q2H PRN Sodium Chloride 250 ml 09/05/23 09:30 09/06/23 10:21 0.9 % Sodium Chloride 250 Ml IV Not Given Q24H MIGUEL Vitamin D 50 mcg 09/05/23 09:00 09/06/23 09:05 Cholecalciferol (Vitamin D3) 25 Mcg Tablet (1000 Unit) PO 50 mcg DAILY MIGUEL Administration Discontinued Medications Generic Name Dose Route Start Last Admin Trade Name Beto PRN Reason Stop Dose Admin Azithromycin 500 mg 09/04/23 20:00 09/04/23 22:30 Azithromycin 100 Mg/Ml Inj IVPB 09/04/23 20:01 500 mg ONCE ONE Administration Azithromycin Confirm 09/04/23 20:08 Azithromycin 100 Mg/Ml Inj Administered 09/04/23 20:09 Dose 500 mg IVPB .STK-MED ONE Azithromycin 500 mg 09/05/23 22:00 Azithromycin 250 Mg Tablet PO Q24H MIGUEL Azithromycin 500 mg 09/06/23 09:00 09/06/23 09:04 Azithromycin 250 Mg Tablet PO 500 mg Q24H MIGUEL Administration Budesonide 0.5 mg 09/05/23 21:00 Budesonide 0.5 Mg/2ml Neb NEB BID MIGUEL Budesonide 0.5 mg 09/05/23 21:00 Budesonide 0.5 Mg/2ml Neb NEB BID MIGUEL Ceftriaxone Sodium Confirm 09/04/23 20:09 Ceftriaxone 1 Gm Vial Administered 09/04/23 20:10 Dose 1 gm .ROUTE .STK-MED ONE Estradiol 1 mg 09/06/23 09:00 09/06/23 09:04 Estradiol 1 Mg Tablet PO Not Given DAILY MIGUEL Sodium Chloride 1,000 mls @ 1,000 mls/hr 09/04/23 20:00 09/04/23 22:41 0.9 % Sodium Chloride 1000 Ml IV 09/04/23 20:59 Infused .Q1H MIGUEL Infusion Ceftriaxone Sodium 1 gm/ 100 mls @ 200 mls/hr 09/04/23 20:00 09/04/23 22:41 Sodium Chloride IVPB 09/04/23 20:01 Infused ONCE ONE Infusion Ceftriaxone Sodium 2 gm/ 100 mls @ 200 mls/hr 09/05/23 22:00 Sodium Chloride IVPB Q24H MIGUEL Cefepime HCl 2 gm/ Sodium 100 mls @ 200 mls/hr 09/05/23 09:15 09/06/23 02:53 Chloride IVPB Infused Q8H MIGUEL Infusion Azithromycin 500 mg/ Sodium 255 mls @ 255 mls/hr 09/05/23 10:00 09/06/23 07:43 Chloride IVPB Infused Q24H MIGUEL Infusion Ibuprofen 600 mg 09/04/23 20:00 09/04/23 22:30 Ibuprofen 200 Mg Tablet PO 09/04/23 20:01 600 mg ONCE ONE Administration Ibuprofen Confirm 09/04/23 20:09 Ibuprofen 200 Mg Tablet Administered 09/04/23 20:10 Dose 600 mg .ROUTE .STK-MED ONE Ibuprofen Confirm 09/04/23 22:11 Ibuprofen 200 Mg Tablet Administered 09/04/23 22:12 Dose 200 mg .ROUTE .STK-MED ONE Iopamidol 95 ml 09/04/23 20:21 Iopamidol IV 09/04/23 20:22 .STK-MED ONE Methylprednisolone Sodium Succinate 125 mg 09/05/23 09:00 09/06/23 02:53 Methylprednisolone Sod Succ 62.5 Mg/Ml (125) IVP 09/06/23 03:01 125 mg Q6H MIGUEL Administration Non-Formulary Medication 1 tab 09/05/23 09:00 [id number] Sulfate [One Daily Multi-Vit W-Mineral] PO DAILY MIGUEL Non-Formulary Medication 1 tab 09/04/23 22:15 Iron,Carbonyl-Vitamin C [Vitron-C] PO QHS MIGUEL Non-Formulary Medication 1,000 mcg 09/04/23 22:15 Cyanocobalamin (Vitamin B-12) PO .weekly MIGUEL Omeprazole 40 mg 09/05/23 07:00 09/06/23 06:43 Omeprazole [address] PO 40 mg DAILY@0700 [facility] Administration Ondansetron HCl 4 mg 09/04/23 22:05 Ondansetron 2 Mg/Ml Inj IVP Q4H PRN Nausea Vitamin D 1,000 mcg 09/05/23 09:00 09/06/23 09:13 Cholecalciferol (Vitamin D3) 25 Mcg Tablet (1000 Unit) PO Not Given DAILY [facility] Allergies Allergy/AdvReac Type Severity Reaction Status Date / Time penicillin V Allergy Mild Rash Verified 09/04/23 22:48 Sulfa (Sulfonamide Allergy Mild Verified 09/04/23 22:48 Antibiotics) Objective - Infectious Disease Objective Vital Signs: Vital Signs - 24 hr 09/05/23 15:00 09/05/23 15:00 09/05/23 15:00 Temperature 98.3 F Pulse Rate 80 Pulse Rate [Left Pulse Oximeter] 82 Respiratory Rate 16 16 Blood Pressure [Left Arm] 131/57 L Blood Pressure [Right Arm] Pulse Oximetry 95 95 Oxygen Delivery Method Room Air Nasal Cannula Oxygen Flow Rate 2 2 09/05/23 15:00 09/05/23 19:00 09/05/23 21:35 Temperature 97.7 F Pulse Rate Pulse Rate [Left Pulse Oximeter] 82 76 Respiratory Rate 16 16 Blood Pressure [Left Arm] 120/58 L Blood Pressure [Right Arm] Pulse Oximetry 98 98 Oxygen Delivery Method Nasal Cannula Oxygen Flow Rate 2 09/05/23 23:00 09/05/23 23:00 09/05/23 23:00 Temperature Pulse Rate 78 Pulse Rate [Left Pulse Oximeter] 79 Respiratory Rate 16 16 Blood Pressure [Left Arm] Blood Pressure [Right Arm] Pulse Oximetry 95 Oxygen Delivery Method Nasal Cannula Oxygen Flow Rate 2 09/05/23 23:00 09/06/23 03:00 09/06/23 07:00 Temperature 97.9 F 98.3 F Pulse Rate Pulse Rate [Left Pulse Oximeter] 79 76 80 Respiratory Rate 16 20 14 Blood Pressure [Left Arm] 141/71 H Blood Pressure [Right Arm] Pulse Oximetry 94 97 Oxygen Delivery Method Nasal Cannula Nasal Cannula Oxygen Flow Rate 2 2 09/06/23 07:00 09/06/23 07:36 09/06/23 10:45 Temperature 97.9 F Pulse Rate 82 Pulse Rate [Left Pulse Oximeter] 80 Respiratory Rate 14 14 Blood Pressure [Left Arm] Blood Pressure [Right Arm] 139/85 Pulse Oximetry 96 96 Oxygen Delivery Method Room Air Nasal Cannula Oxygen Flow Rate 2 09/06/23 11:05 Temperature 98.3 F Pulse Rate Pulse Rate [Left Pulse Oximeter] 83 Respiratory Rate 20 Blood Pressure [Left Arm] Blood Pressure [Right Arm] 145/80 H Pulse Oximetry 90 Oxygen Delivery Method Nasal Cannula Oxygen Flow Rate 0.5 Narrative: Patient was not seen or examined. Results - Infectious Disease Results Labs: 09/05/23 00:20 Nares MRSA Screen - Final No MRSA (Methicillin resistant Staph aureus) isolated. 09/04/23 20:25 Blood Blood Culture - Preliminary NO GROWTH AFTER 24 HOURS 09/04/23 20:01 Blood Blood Culture - Preliminary NO GROWTH AFTER 24 HOURS Laboratory Tests 09/06/23 09/06/23 09/05/23 Range/Units 09:08 06:12 05:40 WBC 4.02 L 5.34 (4.50-11.00) K/uL RBC 3.84 L 3.50 L (4.00-5.20) m/uL Hgb 11.2 L 10.2 L (12.0-16.0) gm/dL Hct 33.7 30.9 L (33.0-51.0) % MCV 88 88 (80-100) fL MCH 29 29 (26-34) pg MCHC 33 33 (32-36) gm/dL RDW Coeff of [place] 14.0 (11.5-15.5) % Plt Count 415 367 (140-440) K/uL Neut % (Auto) 79.1 H (42.0-72.0) % Lymph % (Auto) 12.4 L (20-44) % [place] % (Auto) 7.7 (0.0-11.0) % Eos % (Auto) 0.0 (0.0-7.0) % Baso % (Auto) 0.2 (0.0-3.0) % Neut # (Auto) 4.20 (1.7-7.0) K/uL Lymph # (Auto) 0.70 L (0.90-2.90) K/uL [place] # (Auto) 0.40 (0.00-0.90) K/UL Eos # (Auto) 0.00 (0.00-0.50) K/uL Baso # (Auto) 0.01 (0.00-0.30) K/uL Abs Immat Gran (auto) 0.03 (0.00-0.30) K/uL Imm/Tot Granulo (auto) 0.6 % D-Dimer Quant (PE/DVT) (0.00-0.50) ug/ml VBG pH 7.420 7.428 (7.32-7.43) VBG pCO2 44 43 (40-50) mmHG VBG pO2 30.1 36.9 (25-47) mmHG VBG HCO3 29 H 28 (21-28) mmol/L Sodium 137 134 L (135-149) mmol/L Potassium 4.3 4.2 (3.6-5.1) mmol/L Chloride 102 103 (96-114) mmol/L Carbon Dioxide 29 27 (20-32) mmol/L Anion Gap 6 L 4 L (7-15) mEq/L BUN 13 13 (7-30) mg/dL Creatinine 0.4 L 0.5 (0.5-1.5) mg/dL Estimated Creat Clear 52.05 52.05 Estimated GFR 106 100 ml/min Glucose 155 H 107 (60-115) mg/dL Lactate (0.5-1.9) mmol/L Calcium 8.8 8.2 L (8.4-10.6) mg/dL Magnesium 2.6 (1.5-2.6) mg/dL Total Bilirubin 0.3 (0.1-1.5) mg/dL AST 35 (12-35) U/L ALT 26 (4-35) U/L Alkaline Phosphatase 81 (40-150) U/L Troponin I < 0.01 L (0.01-0.04) ng/mL C-Reactive Protein 12.4 H 11.5 H (0.5-1.0) mg/dL NT-Pro-B Natriuret Pep 608 pg/mL Total Protein 6.3 (6.0-8.3) g/dL Albumin 3.9 (3.3-5.0) g/dL Procalcitonin 0.16 (<0.50) ng/mL TSH 0.208 L (0.270-4.20) uIU/mL Free T4 1.60 (0.70-1.85) ng/dL T3 Pending Urine Color (Yellow) Urine Appearance (Clear) Urine pH (5.0-8.5) Ur Specific [place] (1.000-1.030) Urine Protein (Negative) Urine Glucose (UA) (Negative) Urine Ketones (Negative) Urine Blood (Negative) Urine Nitrite (Negative) Urine Bilirubin (Negative) Urine Urobilinogen (0.2-1.0) Ur Leukocyte Esterase (Negative) Urine RBC (0-2) Urine WBC (0-5) Ur Squamous Epith Cells Urine Bacteria (None) Urine L. pneumophilia Ag (Negative) Urine Strep pneumoniae Ag (Negative) SARS-CoV-2 (PCR) (Negative) Influenza Type A (PCR) (Negative) Influenza Type B (PCR) (Negative) RSV (PCR) (Negative) SARS-CoV-2 Ag (Rapid) (Negative) Lab Acknowledgement Test Added 09/04/23 09/04/23 09/04/23 Range/Units 22:00 21:44 20:25 WBC (4.50-11.00) K/uL RBC (4.00-5.20) m/uL Hgb (12.0-16.0) gm/dL Hct (33.0-51.0) % MCV (80-100) fL MCH (26-34) pg MCHC (32-36) gm/dL RDW Coeff of [place] (11.5-15.5) % Plt Count (140-440) K/uL Neut % (Auto) (42.0-72.0) % Lymph % (Auto) (20-44) % [place] % (Auto) (0.0-11.0) % Eos % (Auto) (0.0-7.0) % Baso % (Auto) (0.0-3.0) % Neut # (Auto) (1.7-7.0) K/uL Lymph # (Auto) (0.90-2.90) K/uL [place] # (Auto) (0.00-0.90) K/UL Eos # (Auto) (0.00-0.50) K/uL Baso # (Auto) (0.00-0.30) K/uL Abs Immat Gran (auto) (0.00-0.30) K/uL Imm/Tot Granulo (auto) % D-Dimer Quant (PE/DVT) 1.61 H (0.00-0.50) ug/ml VBG pH (7.32-7.43) VBG pCO2 (40-50) mmHG VBG pO2 (25-47) mmHG VBG HCO3 (21-28) mmol/L Sodium (135-149) mmol/L Potassium (3.6-5.1) mmol/L Chloride (96-114) mmol/L Carbon Dioxide (20-32) mmol/L Anion Gap (7-15) mEq/L BUN (7-30) mg/dL Creatinine (0.5-1.5) mg/dL Estimated Creat Clear Estimated GFR ml/min Glucose (60-115) mg/dL Lactate (0.5-1.9) mmol/L Calcium (8.4-10.6) mg/dL Magnesium (1.5-2.6) mg/dL Total Bilirubin (0.1-1.5) mg/dL AST (12-35) U/L ALT (4-35) U/L Alkaline Phosphatase (40-150) U/L Troponin I (0.01-0.04) ng/mL C-Reactive Protein (0.5-1.0) mg/dL NT-Pro-B Natriuret Pep pg/mL Total Protein (6.0-8.3) g/dL Albumin (3.3-5.0) g/dL Procalcitonin (<0.50) ng/mL TSH (0.270-4.20) uIU/mL Free T4 (0.70-1.85) ng/dL T3 Urine Color Yellow (Yellow) Urine Appearance Clear (Clear) Urine pH 7.0 (5.0-8.5) Ur Specific [place] 1.015 (1.000-1.030) Urine Protein 1+ A (Negative) Urine Glucose (UA) Negative (Negative) Urine Ketones Negative (Negative) Urine Blood 1+ A (Negative) Urine Nitrite Negative (Negative) Urine Bilirubin Negative (Negative) Urine Urobilinogen 0.2 (0.2-1.0) Ur Leukocyte Esterase Negative (Negative) Urine RBC 0-2 (0-2) Urine WBC 0-2 (0-5) Ur Squamous Epith Cells Not Reportable Urine Bacteria None (None) Urine L. pneumophilia Ag L. pneumo POSITIVE A (Negative) Urine Strep pneumoniae Ag S. pneumo Negative (Negative) SARS-CoV-2 (PCR) (Negative) Influenza Type A (PCR) (Negative) Influenza Type B (PCR) (Negative) RSV (PCR) (Negative) SARS-CoV-2 Ag (Rapid) POSITIVE A (Negative) Lab Acknowledgement Test Added 09/04/23 09/04/23 09/04/23 Range/Units 20:04 20:01 20:00 WBC 6.99 (4.50-11.00) K/uL RBC 4.26 (4.00-5.20) m/uL Hgb 12.4 (12.0-16.0) gm/dL Hct 37.2 (33.0-51.0) % MCV 87 (80-100) fL MCH 29 (26-34) pg MCHC 33 (32-36) gm/dL RDW Coeff of [place] 13.9 (11.5-15.5) % Plt Count 448 H (140-440) K/uL Neut % (Auto) 85.5 H (42.0-72.0) % Lymph % (Auto) 9.0 L (20-44) % [place] % (Auto) 5.3 (0.0-11.0) % Eos % (Auto) 0.0 (0.0-7.0) % Baso % (Auto) 0.1 (0.0-3.0) % Neut # (Auto) 6.00 (1.7-7.0) K/uL Lymph # (Auto) 0.60 L (0.90-2.90) K/uL [place] # (Auto) 0.40 (0.00-0.90) K/UL Eos # (Auto) 0.00 (0.00-0.50) K/uL Baso # (Auto) 0.01 (0.00-0.30) K/uL Abs Immat Gran (auto) 0.01 (0.00-0.30) K/uL Imm/Tot Granulo (auto) 0.1 % D-Dimer Quant (PE/DVT) (0.00-0.50) ug/ml VBG pH (7.32-7.43) VBG pCO2 (40-50) mmHG VBG pO2 (25-47) mmHG VBG HCO3 (21-28) mmol/L Sodium 131 L (135-149) mmol/L Potassium 3.6 (3.6-5.1) mmol/L Chloride 95 L (96-114) mmol/L Carbon Dioxide 26 (20-32) mmol/L Anion Gap 10 (7-15) mEq/L BUN 15 (7-30) mg/dL Creatinine 0.6 (0.5-1.5) mg/dL Estimated Creat Clear 52.05 Estimated GFR 96 ml/min Glucose 112 (60-115) mg/dL Lactate 0.9 (0.5-1.9) mmol/L Calcium 9.0 (8.4-10.6) mg/dL Magnesium (1.5-2.6) mg/dL Total Bilirubin (0.1-1.5) mg/dL AST (12-35) U/L ALT (4-35) U/L Alkaline Phosphatase (40-150) U/L Troponin I < 0.01 L (0.01-0.04) ng/mL C-Reactive Protein (0.5-1.0) mg/dL NT-Pro-B Natriuret Pep 418 pg/mL Total Protein (6.0-8.3) g/dL Albumin (3.3-5.0) g/dL Procalcitonin 0.26 (<0.50) ng/mL TSH (0.270-4.20) uIU/mL Free T4 (0.70-1.85) ng/dL T3 Urine Color (Yellow) Urine Appearance (Clear) Urine pH (5.0-8.5) Ur Specific [place] (1.000-1.030) Urine Protein (Negative) Urine Glucose (UA) (Negative) Urine Ketones (Negative) Urine Blood (Negative) Urine Nitrite (Negative) Urine Bilirubin (Negative) Urine Urobilinogen (0.2-1.0) Ur Leukocyte Esterase (Negative) Urine RBC (0-2) Urine WBC (0-5) Ur Squamous Epith Cells Urine Bacteria (None) Urine L. pneumophilia Ag (Negative) Urine Strep pneumoniae Ag (Negative) SARS-CoV-2 (PCR) POSITIVE SARS-CoV-2 A (Negative) Influenza Type A (PCR) Negative PCR FLU A (Negative) Influenza Type B (PCR) Negative PCR FLU B (Negative) RSV (PCR) Negative PCR RSV (Negative) SARS-CoV-2 Ag (Rapid) (Negative) Lab Acknowledgement Test Added Impression & Recommendations Recommendations Impression & Recommendations: HPI This is a 73-year-old female patient with history of thoracotomy for removal thymoma? At [facility], nonsmoker, recently diagnosed with COVID-19 infection on 08/03/23 who presented to [facility] ER on 09/04 with c/o fever cough, malaise and fatigue for about 1 month. Patient was diagnosed with COVID infection early Jul 2023. She reports at that time she had fever cough dyspnea fatigue malaise. The fever resolved after about 4 days. Her other symptoms persisted. On August 15 she was seen by primary care and started on doxycycline. Apparently despite taking oral doxy, symptoms persisted. At the end of July, she was seen in the emergency department for her rib pain from due to persistent cough and since then she has had recurrence of the fever with worsening dyspnea. Upon arrival to the ED, pt noted to be hypoxic at 86% on RA, tachycardic and tachypneic, febrile up to 103.3. Pt was started on O2 supplementation 2L NC her O2 sat improved to 94-95%, Chest x-ray shows bilateral infiltrates. EKG c/w sinus tachy rate 106, no specific ST or t wave abnormalities, COVID test remains positive with both PCR and Ag. Pt was started on broad spectrum IV Abx and supplemental O2, and was admitted to Medicine for further management. Labs reviewed WBC normal today at 4.02<6.99K on admission, Hg 11.2, plat 415k, sodium 134, AST, ALT normal, CRP 11.5<12.4, Procal 0.16, D dimer 1.6, VBG upon admission PH 7.4, pCO2 43, HCO3 28, Cr 0.6, UA negative for infection, urine strep pneumo Ag negative, urine legionella Ag positive. COVID-19 Ag positive, PCR also positive. 09/04 blood cx NG after 24 hr. Nares MRSA screen negative. Pt clinically improving with decreased O2 requirement, today on minimal O2 1 L NC, afebrile since 09/05 when she spikes 102.3 at 09:13. Tmax 103.3 on 09/04. Primary initially started cefepime + azithromycin, once urine legionella Ag returned positive, cefepime was d/tesfaye by primary team on 09/05 and azithromycin continued. Tele ID consulted on 09/06 for recommendations Re antibiotic management. Micro 09/04 blood cx NG after 24 hr. 09/05 Nares MRSA screen negative. Antibiotics Levaquin 09/06-current S/p course of cefepime, azithromycin. Imaging 09/04/23 CXR 1. Patchy bibasilar opacities suspicious for pneumonia. 2. Asymmetric density in the right hilum could be due to lymphadenopathy. 3. Multiple new right lateral rib fractures which have a subacute to chronic appearance. 09/04/23 Chest CTA 1. No pulmonary embolism. 2. Diffuse patchy ground-glass opacities throughout the lower lobes and to a lesser degree the upper lobes and right middle lobe, most likely representing multilobar pneumonia. Recommend follow-up imaging after treatment to ensure resolution. Antibiotic allergies PNC V rash, sulfa Abx Summary # Multifocal pneumonia with positive COVID test in the setting of recent diagnosis of COVID-19 infection and positive urine legionella Ag # Recent COVID1-19 infection and now with positive COVID-19 Ag and PCR, Symptomatic with a positive PCR since early July. 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 Discussion/Recommendations Multifocal PNA in a pt with a recent diagnosis of COVID-19 with persistent symptoms since early Jul 2023 and worsening 3 days prior to this admission, possible CAP vs atypical PNA? With persistent COVID-19 symptoms since recent infection early Jul. The interpretation of legionella Ag test and COVID-19 testing in the context of a recent COVID-19 infection is not clear. There have been case reports of coninfections with COVID-19 and legionella pneumophila, there are also some reports in the literature of cases with false positive legionella pneumophilia antibodies in COVID-19 patients. In addition a case of legionnaire?s disease with severe rhabdomyolysis misdiagnosed as COVID-19 was described in a case report on Jul 2022. The patient seems to be improving on broad spectrum IV Abx, therefore, it is reasonable to continue coverage for a possible bacterial PNA targeting pathogens that can cause both CAP and atypical PNA with supportive treatment for COVID-19 infection. Recs -Continue broad spectrum IV Abx. -Negative MRSA screen, and adm blood cx NGTD, so unlikely MRSA bacterial superinfection, it is reasonable to continue treatment for CAP with coverage for atypical PNA, I would switch Azithromycin to Levaquin 750 mg daily for a broader Abx coverage including legionella coverage, to treat for a total of 7 days. -Monitor admission blood cx, consider sending sputum Cx if pt has a productive cough -Management and isolation for COVID-19 infection per local treatment protocol, wean off O2 as tolerated. -Monitor clinical status and labs while pt remains on systemic antibiotics with cbd/diff and CMP. -Rest of management per primary team. -Plan d/w Dr. Durand earlier. -Thanks for the consult, tele ID will sign off, you can contact tele ID with any questions. Tele ID will not round over the weekend or review charts, but you can page IDC to discuss with the covering ID Attending if any questions arise over the weekend. Sarahi Ventura MD Visual Manager [facility] ID connect
--- NOTE | 2023-09-06 18:00 | PC.NURSE ---
End of Shift: Patient pleasant and cooperative. Patient vitally stable, lungs course, BS WNL, IV SL and intact. Patient independent. Patient reports chest/back pain at most 3-4, tylenol given x2. Patient currently on RA, does desat with activity and was put on 0.5 L of oxygen NS for a little bit. Patient tolerating regular diet, urinating, and has had 3 BM, 2 being loose stools.
[2023-09-06] MEDS: estradioL 1 MG TABLET PO (18:13)
[2023-09-06] MEDS: ENOXAPARIN 40 MG/0.4 ML INJ SUBCUT (20:10)
[2023-09-07] VITALS (12 sets, daily range): BP systolic 135–153; BP diastolic 67–95; PULSE 79–99; RESP 16–33; TEMP 36.6–37.6; O2SAT 88–97
[2023-09-07] MEDS: ACETAMINOPHEN 325 MG TABLET 650 MG PO ×3 (02:57→20:05)
[2023-09-07] MEDS: diphenhydrAMINE 25 MG CAPSULE PO ×2 (02:57→20:04)
--- NOTE | 2023-09-07 05:00 | PC.NURSE ---
Pt remained on RA overnight with sats at 97%. Pt up IND. Intermittent cough. Afebrile. Pt very anxious this night.
[2023-09-07] MEDS: OMEPRAZOLE 20 MG CAPSULE DR 40 MG PO (06:09)
[2023-09-07] MEDS: LACTOBACILLUS ACIDOPHILUS 1 TABLET 1 TAB PO ×3 (08:21→18:27)
[2023-09-07] MEDS: BUDESONIDE 0.5 MG/2ML NEB NEB (08:21)
[2023-09-07] MEDS: predniSONE 20 MG TABLET 40 MG PO (08:21)
[2023-09-07] MEDS: levoFLOXacin 500 MG TABLET PO (11:01)
[2023-09-07] MEDS: SODIUM CHLORIDE 0.9 % (FLUSH) 10 ML SYRINGE 5 ML IVF ×2 (11:01→20:06)
--- NOTE | 2023-09-07 11:44 | CRLHL7_ITS ---
For Patients: As a result of the Cures Act, medical imaging exams and procedure reports are released immediately into your electronic medical record. You may view this report before your referring provider. If you have questions, please contact your health care provider. INDICATION: Followup pneumonia. COMPARISON: Chest CT and chest x-ray done 09/04/2023. FINDINGS: AP portable view of the chest was obtained. There are sternotomy wires. The cardiac silhouette and pulmonary vasculature are within normal limits. There are continued airspace opacities in the lung bases bilaterally similar to the previous study. The upper lungs are clear. IMPRESSION: Continued bibasilar pneumonia. Dictated by Master Alcantara MD @ 09/07/2023 1:19:16 PM (Electronically Signed)
[2023-09-07 12:09] LABS: Hematocrit 34.7 % (33.0-51.0); Hemoglobin* 11.5 gm/dL (12.0-16.0); Mean Corpuscular HGB Conc 33 gm/dL (32-36); Mean Corpuscular Hemoglobin 29 pg (26-34); Mean Corpuscular Volume 88 fL (80-100); Platelet Count* 462 K/uL (140-440); Red Blood Count 3.95 m/uL (4.00-5.20); White Blood Count* 14.34 K/uL (4.50-11.00)
[2023-09-07 12:11] LABS: Slide Review Reflex No
[2023-09-07 12:38] LABS: C Reactive Protein* 5.1 mg/dL (0.5-1.0)
--- NOTE | 2023-09-07 16:37 | P.IMPN_ITS ---
Progress Note: A&P Assessment and plan (1) Hypoxic respiratory failure: Problem details: Pulmonary hygiene. Steroids. Oxygen supplementation. Budesonide nebs. Sg Meza. RT working with patient. previous Cefepime d/c, azithromycin d/c - change to Levaquin 500mg qd - this will cover atypical pneumonia (including the legionella) continue prednisone (transitioned to oral after 4 doses of IV solu-medrol) Appreciate ID consult (recommended the switch from Azithro to Levaquin and that +covid was likely a false positive) Status: Acute (2) Legionella pneumonia: Problem details: levaquin 500mg qd, oral supportive care Status: Acute (3) COVID-19: Problem details: Symptomatic with a positive PCR since early July. Antigen still positive - cross reactive? Status: Acute (4) Rib pain on right side: Problem details: New rib fractures probably from her severe cough -Subacute right lateral 4th, 5th, and 6th rib fractures. Acute, mildly displaced 7th and 8th lateral rib fractures. 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 No pulmonary embolism. 2. Diffuse patchy ground-glass opacities throughout the lower lobes and to a lesser degree the upper lobes and right middle lobe, most likely representing multilobar pneumonia. Recommend follow-up imaging after treatment to ensure resolution. Blood cultures negative to date MRSA negative Objective: Improved from yesterday. anxious. two pages of written notes/questions. Vitals: see above Lungs: Bilateral crackles lessening. No significant respiratory distress Cardiac: S1S2. Disposition/Potential discharge - Likely to return to previous living situation. Today I spent 50minutes seeing the patient, reviewing Expanse and EPIC notes/diagnostics, discussing the care plan with our care time that includes social work, PT/OT, pharmacy, RT, penitentiary and documenting my impressions and plan in the medical record. Exam Const: Vital Signs, click to edit/add: Vital Signs - 24 hr 09/06/23 19:11 09/06/23 19:20 09/06/23 20:47 Temperature 98.2 F 98.2 F Pulse Rate [Left P ulse Oximeter] 86 Respiratory Rate 16 Blood Pressure [Le ft Arm] 148/77 H Blood Pressure [Ri ght Arm] Pulse Oximetry 96 96 Oxygen Delivery Me thod Room Air Oxygen Flow Rate 0 09/06/23 22:12 09/06/23 22:13 09/06/23 22:13 Temperature 98.6 F Pulse Rate [Left P ulse Oximeter] 84 84 Respiratory Rate 16 16 16 Blood Pressure [Le ft Arm] Blood Pressure [Ri ght Arm] 155/84 H Pulse Oximetry 94 94 Oxygen Delivery Me thod Room Air Room Air Oxygen Flow Rate 0 09/07/23 01:57 09/07/23 02:57 09/07/23 07:00 Temperature 98.6 F 98.6 F Pulse Rate [Left P ulse Oximeter] 88 88 Respiratory Rate 16 26 H Blood Pressure [Le ft Arm] Blood Pressure [Ri ght Arm] 142/73 H Pulse Oximetry 97 Oxygen Delivery Me thod Room Air Oxygen Flow Rate 09/07/23 07:00 09/07/23 07:00 09/07/23 11:00 Temperature 99.6 F Pulse Rate [Left P ulse Oximeter] 86 99 Respiratory Rate 26 H 26 H 33 H Blood Pressure [Le ft Arm] 153/71 H 146/70 H Blood Pressure [Ri ght Arm] Pulse Oximetry 92 90 88 Oxygen Delivery Me thod Room Air Room Air Room Air Oxygen Flow Rate 09/07/23 15:00 09/07/23 15:00 09/07/23 15:00 Temperature 97.8 F Pulse Rate [Left P ulse Oximeter] 99 88 Respiratory Rate 25 H 25 H 25 H Blood Pressure [Le ft Arm] Blood Pressure [Ri ght Arm] 135/67 Pulse Oximetry 94 94 Oxygen Delivery Me thod Room Air Room Air Oxygen Flow Rate Labs Labs: Laboratory Results - last 24 hr 09/07/23 12:00 WBC 14.34 H RBC 3.95 L Hgb 11.5 L Hct 34.7 MCV 88 MCH 29 MCHC 33 Plt Count 462 H C-Reactive Protein 5.1 H
--- NOTE | 2023-09-07 18:47 | PC.NURSE ---
Nursing Care Hours: [id number] Pt this shift alert and oriented, calm and cooperative with cares. Independent in room. SpO2 drops to 79% when ambulating. Instructed pt on pursed lip breathing and taking breaks during activity. Also educated pt on use of supplemental oxygen with activities. Pt using IS and PEP independently. Drinking plenty and voiding. No BM this shift, but pt states she feels like she needs to but feels slightly constipated. Requesting docusate PRN for tomorrow. Highest temperature was 99.6, pt states feeling chilled but flushed. Treated with acetaminophen, effective. Gown and pillow linens changed d/t perspiration.
[2023-09-07] MEDS: ENOXAPARIN 40 MG/0.4 ML INJ SUBCUT (20:04)
[2023-09-07] MEDS: SENNOSIDES/DOCUSATE TABLET PO (20:05)
[2023-09-07] MEDS: estradioL 1 MG TABLET PO (20:06)
[2023-09-07 21:55] LABS: Total T3 62 ng/dL (80-200)
[2023-09-08 03:36] VITALS: TEMP 37.2
[2023-09-08] MEDS: ACETAMINOPHEN 325 MG TABLET 650 MG PO ×2 (03:36→08:14)
[2023-09-08 04:34] VITALS: BP 163/87; PULSE 97; RESP 18; TEMP 37.2; O2SAT 93
[2023-09-08] MEDS: OMEPRAZOLE 20 MG CAPSULE DR 40 MG PO (06:17)
[2023-09-08 08:01] VITALS: BP 142/78; PULSE 96; RESP 16; TEMP 38.6; O2SAT 92
[2023-09-08] MEDS: LACTOBACILLUS ACIDOPHILUS 1 TABLET 1 TAB PO ×2 (08:12→12:04)
[2023-09-08] MEDS: predniSONE 20 MG TABLET 40 MG PO (08:12)
[2023-09-08 08:14] VITALS: TEMP 38.5
[2023-09-08] MEDS: SODIUM CHLORIDE 0.9 % (FLUSH) 10 ML SYRINGE 5 ML IVF (09:32)
[2023-09-08] MEDS: BUDESONIDE 0.5 MG/2ML NEB NEB (09:32)
[2023-09-08 09:33] VITALS: TEMP 37.4
[2023-09-08 11:04] VITALS: BP 129/68; PULSE 81; RESP 20; TEMP 37; O2SAT 95
[2023-09-08] MEDS: levoFLOXacin 500 MG TABLET PO (11:04)
--- NOTE | 2023-09-08 15:08 | PC.NURSE ---
Discharge: Patient pleasant and cooperative. Patient vitally stable, lungs course, BS WNL, IV removed, catheter intact. Patient independent in room. Patient given tylenol once for back/chest pain that she rates 4/10, and also for temperature. Temperature resolved after administration of tylenol. Patient tolerating regular diet and urinating. Patient signed belongings sheet and discharge form. Discharge information reviewed, patient had no further questions. Patient left the floor by wheelchair at 1507.
--- NOTE | 2023-09-08 17:03 | P.DS_ITS ---
DS: Providers Provider Date Seen: 09/08/23 Date of admission: 09/04/23 22:49 Primary care physician: Aury Estevez MD Admitting Clinician: Master Hawkins MD Consults: 09/04/23 22:07 Consult to Respiratory Therapy [CONS] Routine Comment: Reason(s) for RT Consult:: Consult 09/06/23 10:50 Consult to Infectious Diseases [CONS] Routine Comment: Consulting Provider: [facility] Consult priority: Routine Has provider been notified: Yes Call back required?: No Attending Physician on discharge: Stella Durand MD [facility] Date of Discharge: 09/08/23 DS: Diagnosis Discharge Diagnosis (1) Legionella pneumonia: Status: Acute Problem details: Total does is 10 days of antibiotics, Levaquin 500 mg q.day at discharge Prednisone continued taper at discharge (2) Hypoxic respiratory failure: Status: Acute Problem details: Pulmonary hygiene. Steroids. Oxygen supplementation. Budesonide nebs. P.r.n. Susana. RT consulted with patient. previous Cefepime d/c, azithromycin d/c - change to Levaquin 500mg qd - this will cover atypical pneumonia (including the legionella) continue prednisone (transitioned to oral after 4 doses of IV solu-medrol) Appreciate ID consult (recommended the switch from Azithro to Levaquin and that +covid was likely a false positive) (3) Rib pain on right side: Status: Acute Problem details: New rib fractures probably from her severe cough -Subacute right lateral 4th, 5th, and 6th rib fractures. Acute, mildly displaced 7th and 8th lateral rib fractures. Chronic posterolateral left 8th rib fracture (4) COVID-19: Status: Acute Problem details: Symptomatic with a positive PCR since early July. Antigen still positive - cross reactive? DS: Summary Hospital Course Hospital Course: FINAL DIAGNOSIS/FOLLOW UP ISSUES: Legionella pneumonia - wean from oxygen. Discharged on oral Levaquin for total therapy of 10 days. Prednisone taper outlined in discharge summary. Positive COVID antigen and PCR-ID felt like this was likely a cross-reactivity false-positive. Patient was weaned from oxygen and discharged on prednisone taper. BRIEF HOSPITAL COURSE: Patient was admitted for 5 days. Synopsis of acute inpatient issues are outlined above. Chronic medical conditions with notable findings outlined above. She was weaned from a oxygen on hospital day 3. Her max support was 2-3 L per nasal cannula. She was anxious throughout her stay but easily redirected. DISCHARGE MEDICATIONS: See Reconciled list - SIGNIFICANT CHANGES: Short-term use of prednisone and Levaquin as outlined above. Specific instructions to the patient and follow-up are outlined below. REVIEW OF SYSTEMS No new chest pain or dyspnea Pain controlled No voiding difficulties Tolerating diet challenge PHYSICAL EXAM: CONSTITUTIONAL: Anxious. But improved physically. VITAL SIGNS: see record. HEENT: Normocephalic, atraumatic. PERRL, EOMI, conjunctivae pink, no scleral icterus. Ears and nose externally normal. Pharynx normal. NECK: No JVD. No carotid bruit, no thyromegaly, no adenopathy. CHEST: Clear to auscultation bilaterally. HEART: S1 and S2 normal. Edema ABDOMEN: Soft, nontender. Normal bowel sounds. MUSCULOSKELETAL: No gross joint deformity or swelling. NEURO: Cranial nerves intact. Grossly intact. No asymmetric findings. SKIN: No rashes, petechiae, concerning changes PSYCHIATRIC: Mood euthymic. DISPOSITION: Home with family. Time spent on discharge 37 minutes. Status at Discharge Functional status at discharge: independent ambulation Overall status at discharge: patient is progressing back to baseline Time Spent with Patient Time attestation: Total time spent providing and/or coordinating discharge services: Time spent: Greater than 30 minutes Exam Const: Vital Signs, click to edit/add: Vital Signs - 24 hr 09/07/23 19:23 09/07/23 20:05 09/07/23 21:23 Temperature 97.9 F 97.9 F Pulse Rate [Left P ulse Oximeter] 93 Respiratory Rate 18 Blood Pressure [Le ft Arm] 139/95 H Blood Pressure [Ri ght Arm] Pulse Oximetry 96 96 Oxygen Delivery Me thod Room Air Oxygen Flow Rate 09/07/23 21:25 09/07/23 22:33 09/07/23 22:35 Temperature 97.9 F 98.3 F Pulse Rate [Left P ulse Oximeter] 79 79 Respiratory Rate 16 16 Blood Pressure [Le ft Arm] 147/82 H Blood Pressure [Ri ght Arm] Pulse Oximetry 96 Oxygen Delivery Me thod Room Air Oxygen Flow Rate 09/07/23 22:36 09/08/23 03:36 09/08/23 04:34 Temperature 99 F 99 F Pulse Rate [Left P ulse Oximeter] 97 Respiratory Rate 18 18 Blood Pressure [Le ft Arm] Blood Pressure [Ri ght Arm] 163/87 H Pulse Oximetry 96 93 Oxygen Delivery Me thod Room Air Room Air Oxygen Flow Rate 09/08/23 08:01 09/08/23 08:01 09/08/23 08:01 Temperature 101.4 F H Pulse Rate [Left P ulse Oximeter] 96 96 Respiratory Rate 16 16 16 Blood Pressure [Le ft Arm] Blood Pressure [Ri ght Arm] 142/78 H Pulse Oximetry 92 92 Oxygen Delivery Me thod Room Air Room Air Oxygen Flow Rate 0 09/08/23 08:14 09/08/23 09:33 09/08/23 11:04 Temperature 101.3 F H 99.3 F 98.6 F Pulse Rate [Left P ulse Oximeter] 81 Respiratory Rate 20 Blood Pressure [Le ft Arm] Blood Pressure [Ri ght Arm] 129/68 Pulse Oximetry 95 Oxygen Delivery Me thod Room Air Oxygen Flow Rate DS: Data Data Completed and Pending Labs on day of discharge: Labs from last 24 hours 09/06/23 06:12 T3 62 L Preliminary micro results at discharge 09/04/23 20:25 Blood Culture - Preliminary Blood NO GROWTH AFTER 72 HOURS 09/04/23 20:01 Blood Culture - Preliminary Blood NO GROWTH AFTER 72 HOURS Discharge Plan Discharge Disposition: Home, Self-Care Date of Admission: 09/04/23 22:49 Attending Provider on Discharge: Stella Durand Primary Care Provider: Aury Estevez Condition: Improved Anticipated Discharge Date/Time: 09/08/23 11:01 Discharge Medications: New levofloxacin 500 mg Tablet 500 mg PO Q24H Qty: 6 0RF Rx Instructions: This will complete a total of 10 days of treatment. Lactobacillus acidophilus 0.5 mg (100 million cell) Tablet 1,000 mmu cells PO TIDWM Qty: 90 0RF prednisone 20 mg Tablet 20 mg PO DAILYWM Qty: 6 0RF Rx Instructions: take 1 tablet (20mg) 09/09-09/12, then take 1/2 tablet for four days, 09/13- 09/16, then take the 5 mg dose for four days. prednisone 5 mg tablet 5 mg PO DAILY Qty: 4 0RF Rx Instructions: take daily for four days after the 20mg bottle Continued cholecalciferol (vitamin D3) 50 mcg (2,000 unit) capsule 2,000 unit PO DAILY Rx Instructions: MWF during the summer, daily during the winter. acetaminophen 500 mg tablet 1,000 mg PO Q6H PRN Rx Instructions: NO MORE THAN 4000 MG/DAY cyanocobalamin (vitamin B-12) 1,000 mcg tablet 1,000 mcg PO QWEEK ascorbic acid (vitamin C) 1,000 mg tablet 1 g PO DAILY One Daily Multi-Vit w-Mineral 4.5 mg iron tablet 1 tab PO DAILY glucosamine chondroi 2 tab PO DAILY Vitron-C 65 mg iron- 125 mg tablet,delayed release (DR/EC) 1 tab PO QHS Qty: 90 0RF estradiol 1 mg tablet 1 mg PO QDAY 30 Days Qty: 30 12RF omeprazole 20 mg capsule,delayed release(DR/EC) 20 mg PO QDAY Qty: 90 0RF Discontinued estradiol 0.5 mg tablet 0.5 mg PO Q72H Rx Instructions: Using every 3 days Discharge Orders: Discharge Order (Routine); Ordered 09/08/23 Ordered By: Stella Durand Patient Education: Prednisone (By mouth), Levofloxacin (By mouth), Probiotic (By mouth), Legionnaires Disease (GEN) Additional Instructions: 1. Contagious/quarantine period is thru Saturday the 2. Use the aerobika flutter device several times a day 3. Each day should improve; if you would like you can check your blood oxygen level intermittently. It should be higher than 88%. If you find it lower, be sure you adjust the fitting on your finger and use the aerobika several times and see what the number does. Proceed to the ED if less than 88% Your antibiotics will be for six more days (Levaquin 500mg daily). This is a total of 10 days. Your prednisone will be on a taper. 20 mg for four days, 10 mg for four days, 5 mg for four days I sent a probiotic to your pharmacy; you can use this one or any recommendation they have for an OTC brand. You can stop these the day of your last antibiotic. 4. Send your [place] physician a portal message updating them on your admission. Let them know your hospitalist pushed the images to their system. Activity Level: Activity as Tolerated Discharge Diet: Regular Follow Up Appointments: Aury Estevez MD [Primary Care Provider] - 09/17/23 2:30 pm ([facility] for follow-up.) Forms: Pushpay Info Instructions Discharge Comments: please push all images to [facility] for her followup.
== END 2023-09-08 15:07 | disposition home or self-care (01) | DRG 177 ==
LOC: ED 20:26 → MEDSURG 22:49
PROVIDERS: Family Medicine; Admitting Provider Family Medicine; Emergency Provider Emergency Medicine Emergency Medical Services; PCP Family Medicine; Visit Provider Family Medicine
DX: A48.1 Legionnaires' disease (principal); J96.01 Acute respiratory failure with hypoxia; U07.1 COVID-19; S22.41XA Multiple fractures of ribs, right side, initial encounter for closed fracture; R07.81 Pleurodynia; Z90.89 Acquired absence of other organs; R00.0 Tachycardia, unspecified; M85.80 Other specified disorders of bone density and structure, unspecified site; M81.0 Age-related osteoporosis without current pathological fracture
CPT/HCPCS: 36415; 71045; 71275; 80048; 80053; 81001; 82803; 83605; 83735; 83880; 84145; 84439; 84443; 84480; 84484; 85025; 85027; 85379; 86140; 87040; 87081; 87426; 87449; 87631; 87899; 93005; 94640; 94664; 94761; 99284; 99285; A9270; J0456; J0692; J0696; J1650; J2930; J7030; J7050; J7512; J7626; Q9967

== ENCOUNTER 2023-09-14 20:02 | Emergency (ER) | payer MEDICARE, SELFPAY ==
[2023-09-14 20:07] VITALS: BP 137/79; PULSE 84; RESP 24; TEMP 36.8; O2SAT 92; BMI 22.8
--- NOTE | 2023-09-14 20:19 | ED_ITS ---
HPI - General Adult General Chief complaint: Shortness of Breath/Dyspnea Stated complaint: shortness of breath, mouth is very sore Time Seen by Provider: 09/14/23 20:18 History of Present Illness HPI narrative: pt complaint of short of breath. Low O2 sats at home. worried about having th tony. Triage sats, 88% after walking, 92% after sitting in triage. Pt reports fever at home, has taken Tylenol and ibuprofen at home. 73-year-old woman presenting to the emergency department with concern of shortness of breath. Was discharged nearly week ago from this facility diagnosis of Legionella pneumonia. Discharged on Levaquin having been weaned off oxygen. Sats upon discharge look to have been 92%. She is now reporting return of fever. Taken acetaminophen ibuprofen. Worried also about having thrush. She has been checking morning temperatures. On the had a temperature of 101?. Subsequent 2 days upper 99. She then today had a temperature measured of 102.3. She has been monitor oxygen saturations and since discharge has been desatting into the low 70s even 71% with any exertion. And then to need some time to recover. 88% on arrival here after ambulating in and 92% triage. She is just scared that she has not gotten any better. In that regard things have not changed. Today was her last dose of levofloxacin. She is continuing on a steroid taper. Sounds like it was unclear whether not also had COVID in addition to legionnaires. Still sore also in left chest. She does not have a history of asthma she says. Softer stools; no diarrhea. She is taking a stool softener. Now she is having pain in the back of her mouth/throat was worried that she might have thrush. Not so much that hurts to swallow although admittedly a little sore at the left side of her neck. Related Data Home Medications Medication Instructions Recorded Confirmed acetaminophen 500 mg tablet 1,000 mg PO Q6H PRN 03/14/22 09/05/23 ascorbic acid (vitamin C) 1,000 mg 1 g PO DAILY 03/14/22 09/05/23 tablet cholecalciferol (vitamin D3) 50 2,000 unit PO DAILY 03/14/22 09/05/23 mcg (2,000 unit) capsule cyanocobalamin (vitamin B-12) 1,000 mcg PO QWEEK 03/14/22 09/05/23 1,000 mcg tablet multivitamin with minerals-ferrous 1 tab PO DAILY 03/14/22 09/05/23 sulfate 4.5 mg iron tablet (One Daily Multivitamins with Minerals) glucosamine chondroi 2 tab PO DAILY 01/01/23 09/05/23 Previous Rx's Medication Instructions Recorded iron,carbonyl 65 mg-vitamin C 125 1 tab PO QHS #90 tabs 05/08/23 mg tablet,delayed release (Vitron-C) estradiol 1 mg tablet 1 mg PO QDAY 1 month #30 tabs 06/25/23 omeprazole 20 mg capsule,delayed 20 mg PO QDAY #90 caps 08/22/23 release Lactobacillus acidophilus 0.5 mg 1,000 mmu cells PO TIDWM #90 tabs 09/08/23 (100 million cell) tablet levofloxacin 500 mg tablet 500 mg PO Q24H #6 tabs 09/08/23 prednisone 20 mg tablet 20 mg PO DAILYWM #6 tabs 09/08/23 prednisone 5 mg tablet 5 mg PO DAILY #4 tabs 09/08/23 Magic Mouthwash 10 ml PO QID PRN #120 mL 09/14/23 (Lidocaine/Benadryl/Maalox) 120 mL suspension albuterol sulfate 90 mcg/actuation 2 puff inhalation QID PRN #6.7 09/14/23 aerosol inhaler grams Allergies Allergy/AdvReac Type Severity Reaction Status Date / Time penicillin V Allergy Mild Rash Verified 09/04/23 22:48 Sulfa (Sulfonamide Allergy Mild Verified 09/04/23 22:48 Antibiotics) Review of Systems Status of ROS: Reports: 6 or more systems reviewed and unremarkable except as noted in History and below [facility] Medical 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) Hot flashes due to menopause ?N95.1 - Menopausal and female climacteric states (ICD-10) Osteoporosis ?M81.0 - Age-related osteoporosis without current pathological fracture (ICD- 10) Osteopenia (2018) ?M85.80 - Other specified disorders of bone density and structure, unspecified site (ICD-10) Left shoulder pain ?M25.512 - Pain in left shoulder (ICD-10) History of in vitro fertilization ?Z98.890 - Other specified postprocedural states (ICD-10) History of fracture of wrist (08/2017) ?Z87.81 - Personal history of (healed) traumatic fracture (ICD-10) Surgical History 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) ?Z90.89 - Acquired absence of other organs (ICD-10) History of total abdominal hysterectomy and bilateral salpingo-oophorectomy (2002) ?Z90.710 - Acquired absence of both cervix and uterus (ICD-10) ?Z90.722 - Acquired absence of ovaries, bilateral (ICD-10) ?Z90.79 - Acquired absence of other genital organ(s) (ICD-10) History of surgery on wrist (~2017) ?Z98.890 - Other specified postprocedural states (ICD-10) History of colonoscopy (2017) ?Z98.890 - Other specified postprocedural states (ICD-10) History of bilateral cataract extraction (2017) ?Z98.41 - Cataract extraction status, right eye (ICD-10) ?Z98.42 - Cataract extraction status, left eye (ICD-10) Family History Father Bladder cancer, Onset Age: 60 High blood pressure Paternal Grandfather Coronary artery disease Mother Ovarian cancer, Onset Age: 65 Sister Thyroid disease Social History Narrative: exercises regularly- 3-4/week gym, weights, cardio non-smoker rarely consumes alcohol lives in lives with 25 yo adopted Aspergers son Her sister Rea Purcell from [place] is healthcare power of deputy prosecuting attorney. Code status is full What is your current living situation?: I presently have a place to live Problems where you live: no known problems Problems where you live details: N/A In the past 12 months, utilities in danger of being shut off: no In past 12 months, lack of transportation kept you from medical appts, meetings, work, or getting things needed for daily living: no In the past 12 mos, have been you worried that your food would run out before you had money to buy more?: never true In the past 12 mos, the food you bought just didn't last and you didn't have money to buy more?: never true Highest level of school completed/degree received: Master's degree Smoking Status: Never smoker How often do you have a drink containing alcohol: never How often do you have six or more drinks on one occasion: Never AUDIT-C Alcohol total score: 0 Non-prescribed substance use: denies use Caffeine: Yes (Occasional coffee) How often does anyone, including family, friends and others, physically hurt you : never How often does anyone, including family, friends and others, insult or talk down to you: never How often does anyone, including family, friends and others, threaten you with harm: never How often does anyone, including family, friends and others, scream or curse at you: never Little interest or pleasure in doing things: not at all Feeling down, depressed, or hopeless: not at all service: No Exam Narrative: Exam Narrative: Very pleasant. Increasingly breathless as we talk. She is wearing a mask. Does appear anxious. Skin is warm and dry. Oropharynx without significant inflammatory changes. Some mucopurulence up along the left upper buccal surface. There also to erosions that might be related to dentition at the back corners of the mouth. Adjacent ulcers though as well. I do not see actual thrush. I do not hear any stridor. Lungs without wheeze. Good air movement throughout. Bibasilar crepitus. Heart is in regular rate and rhythm. Abdomen is soft. Extremities are well perfused without edema. Skin is not warm actually little clammy. Const: Vital Signs, click to edit/add: Vital Signs - 24 hr 09/14/23 20:07 Temperature 98.2 F Pulse Rate [Left P ulse Oximeter] 84 Respiratory Rate 24 Blood Pressure [Ri ght Upper Arm] 137/79 Pulse Oximetry 92 Oxygen Delivery Me thod Room Air Documenting provider has reviewed patient's vital signs: yes Course Vital Signs Vital signs: Initial Vital Signs Temperature 98.2 F 09/14/23 20:07 Temperature Source Temporal Artery Scan 09/14/23 20:07 Pulse Rate 84 09/14/23 20:07 Pulse Rhythm Regular 09/14/23 20:07 Respiratory Rate 24 09/14/23 20:07 Blood Pressure 137/79 09/14/23 20:07 Blood Pressure Mean 98 09/14/23 20:07 Blood Pressure Position Sitting 09/14/23 20:07 Pulse Oximetry 92 09/14/23 20:07 Oxygen Delivery Method Room Air 09/14/23 20:07 Vital Signs Temperature 98.2 F 09/14/23 20:07 Pulse Rate 84 09/14/23 20:07 Respiratory Rate 24 09/14/23 20:07 Blood Pressure 137/79 09/14/23 20:07 Pulse Oximetry 92 09/14/23 20:07 Oxygen Delivery Method Room Air 09/14/23 20:07 Temperature 98.2 F 09/14/23 20:07 Pulse Rate 91 09/14/23 22:45 Respiratory Rate 24 09/14/23 20:07 Blood Pressure 137/79 09/14/23 20:07 Pulse Oximetry 91 09/14/23 22:45 Oxygen Delivery Method Room Air 09/14/23 20:07 Medications Administered Medications: Discontinued Medications Generic Name Dose Route Start Last Admin Trade Name Beto PRN Reason Stop Dose Admin Lorazepam 0.5 mg 09/14/23 20:41 09/14/23 20:30 Lorazepam 2 Mg/Ml Inj IVP 09/14/23 20:42 0.5 mg ONCE ONE Administration Medical Decision Making MDM Narrative Medical decision making narrative: At this point will try to look for recurrence of disease. Compare imaging. Seems to have some traumatic and possibly other stomatitis. She does note she wears a mouth guard due to teeth grinding at night. Monitor on oximetry. Would also like to treat what I perceive a some degree of anxiety and see if this helps some of the symptoms that she is feeling. Nursing confirms later they observed some suspected nervous chewing of her cheeks during prior time here. Requested low-dose Ativan. I have reordered antigen testing for COVID as well as Legionella. In review with our hospitalist, according to CDC duration of positive antigen test specifically related to Legionella, sounds as though may be positive for few weeks. I suppose this is helpful if it is negative. Labs are reassuring. White count is no longer elevated. However COVID testing remains positive. Urinalysis thankfully is negative for strep pneumo and Legionella antigen. I suppose this would indicate absence of active disease. Chest x-ray by my read looks quite similar to prior. I had discussed with Ms. Phillips that it was unlikely to look much different unless clearly worse. Radiology over-read as below Indication: Pneumonia. Technique: Chest 2 views. Comparison: September 07, 2023. Findings/Impression: Cardiovascular and mediastinum: Heart size and vasculature are normal in caliber and appearance. Bilateral lower lobe pneumonia is not significantly changed. Remainder of the lungs and pleural spaces are clear. No pneumothorax. Lungs and pleural spaces: Lungs are clear. No sign of infiltrate or mass. No sign of pleural effusion. No pneumothorax. Bones and soft tissues: No significant findings. Remained vitally well during time in the emergency department. Still desaturates to low 70s with ambulation. At rest oximetry on room air is 92-93%. On reassessment also was more relaxed. Seems more reassured. See patient discharge plan Medical Records Medical records reviewed: Yes I reviewed the patient's medical records Lab Data Lab results reviewed: Yes I reviewed the patient's lab results Labs: Lab Results 09/14/23 09/14/23 Range/Units 20:47 22:16 WBC 8.05 (4.50-11.00) K/uL RBC 4.34 (4.00-5.20) m/uL Hgb 12.5 (12.0-16.0) gm/dL Hct 38.3 (33.0-51.0) % MCV 88 (80-100) fL MCH 29 (26-34) pg MCHC 33 (32-36) gm/dL RDW Coeff of [place] 14.2 (11.5-15.5) % Plt Count 438 (140-440) K/uL Neut % (Auto) 89.6 H (42.0-72.0) % Lymph % (Auto) 4.8 L (20-44) % [place] % (Auto) 5.3 (0.0-11.0) % Eos % (Auto) 0.0 (0.0-7.0) % Baso % (Auto) 0.1 (0.0-3.0) % Neut # (Auto) 7.20 H (1.7-7.0) K/uL Lymph # (Auto) 0.40 L (0.90-2.90) K/uL [place] # (Auto) 0.40 (0.00-0.90) K/UL Eos # (Auto) 0.00 (0.00-0.50) K/uL Baso # (Auto) 0.01 (0.00-0.30) K/uL Abs Immat Gran (auto) 0.02 (0.00-0.30) K/uL Imm/Tot Granulo (auto) 0.2 % VBG pH 7.422 (7.32-7.43) VBG pCO2 48 (40-50) mmHG VBG pO2 23.9 L (25-47) mmHG VBG HCO3 31 H (21-28) mmol/L Sodium 135 (135-149) mmol/L Potassium 4.1 (3.6-5.1) mmol/L Chloride 96 (96-114) mmol/L Carbon Dioxide 30 (20-32) mmol/L Anion Gap 9 (7-15) mEq/L BUN 16 (7-30) mg/dL Creatinine 0.5 (0.5-1.5) mg/dL Estimated Creat Clear 52.05 Estimated GFR 100 ml/min Glucose 129 H (60-115) mg/dL Lactate 0.9 (0.5-1.9) mmol/L Calcium 9.2 (8.4-10.6) mg/dL Total Bilirubin 0.4 (0.1-1.5) mg/dL Direct Bilirubin 0.0 (0.0-0.5) mg/dL AST 44 H (12-35) U/L ALT 38 H (4-35) U/L Alkaline Phosphatase 87 (40-150) U/L C-Reactive Protein 8.4 H (0.5-1.0) mg/dL Total Protein 6.6 (6.0-8.3) g/dL Albumin 4.1 (3.3-5.0) g/dL Urine Color Yellow (Yellow) Urine Appearance Clear (Clear) Urine pH 7.0 (5.0-8.5) Ur Specific [place] 1.010 (1.000-1.030) Urine Protein Negative (Negative) Urine Glucose (UA) Negative (Negative) Urine Ketones Negative (Negative) Urine Blood Trace-lysed A (Negative) Urine Nitrite Negative (Negative) Urine Bilirubin Negative (Negative) Urine Urobilinogen 0.2 (0.2-1.0) Ur Leukocyte Esterase Negative (Negative) Urine RBC 0-2 (0-2) Urine WBC 0-2 (0-5) Ur Squamous Epith Cells None (None-Few) Urine Bacteria None (None) Urine L. pneumophilia Ag L. pneumo Negative (Negative) Urine Strep pneumoniae Ag S. pneumo Negative (Negative) SARS-CoV-2 (PCR) POSITIVE SARS-CoV-2 A (Negative) Influenza Type A (PCR) Negative PCR FLU A (Negative) Influenza Type B (PCR) Negative PCR FLU B (Negative) RSV (PCR) Negative PCR RSV (Negative) SARS-CoV-2 Ag (Rapid) POSITIVE A (Negative) Discharge Plan Discharge Clinical Impression: Anxiety, Physical deconditioning, Hypoxia, Traumatic ulcer of oral mucosa, Pneumonia Patient Disposition: Home w/ Parent or Adult Condition: Improved Additional Instructions: It seems like you will need to take it easy a little while longer. At least try to do regular stretching including upper back. See handout. Stay well-hydrated. I am happy to hear you have an appointment with your primary care provider early this coming week. You might need some assistance in rehabilitation from a pulmonary perspective. Today your white count is much improved from last time we checked. Oxygenation is a little bit better. Return for persistent increase in shortness of breath even at rest, increasing weakness, worsening chest pain. Prescriptions: New Magic Mouthwash (Lidocaine/Benadryl/Maalox) 120 mL suspension 10 ml PO QID PRNQty: 120 1RF Rx Instructions: Lidocaine Viscous 2 % mucosal solution 40 mL; Maalox 200 mg-200 mg-20 mg/5 mL oral suspension 40 mL; Benadryl 12.5 mg/5 mL oral elixir 40 mL; Per 120 mL SWISH AND SPIT. MAY COMPOUND IF FIRST PRODUCT IS NOT AVAILABLE. albuterol sulfate 90 mcg/actuation HFA aerosol inhaler 2 puff inhalation QID PRNQty: 6.7 1RF No Action cholecalciferol (vitamin D3) 50 mcg (2,000 unit) capsule 2,000 unit PO DAILY Rx Instructions: MWF during the summer, daily during the winter. acetaminophen 500 mg tablet 1,000 mg PO Q6H PRN Rx Instructions: NO MORE THAN 4000 MG/DAY cyanocobalamin (vitamin B-12) 1,000 mcg tablet 1,000 mcg PO QWEEK ascorbic acid (vitamin C) 1,000 mg tablet 1 g PO DAILY One Daily Multi-Vit w-Mineral 4.5 mg iron tablet 1 tab PO DAILY glucosamine chondroi 2 tab PO DAILY Vitron-C 65 mg iron- 125 mg tablet,delayed release (DR/EC) 1 tab PO QHS Qty: 90 0RF levofloxacin 500 mg Tablet 500 mg PO Q24H Qty: 6 0RF Rx Instructions: This will complete a total of 10 days of treatment. Lactobacillus acidophilus 0.5 mg (100 million cell) Tablet 1,000 mmu cells PO TIDWM Qty: 90 0RF prednisone 20 mg Tablet 20 mg PO DAILYWM Qty: 6 0RF Rx Instructions: take 1 tablet (20mg) 09/09-09/12, then take 1/2 tablet for four days, 09/13- 09/16, then take the 5 mg dose for four days. prednisone 5 mg tablet 5 mg PO DAILY Qty: 4 0RF Rx Instructions: take daily for four days after the 20mg bottle estradiol 1 mg tablet 1 mg PO QDAY 30 Days Qty: 30 12RF omeprazole 20 mg capsule,delayed release(DR/EC) 20 mg PO QDAY Qty: 90 0RF Follow Up/Referrals: Aury Estevez MD [Primary Care Provider] - Stand Alone Forms: ePatientFinder Info Instructions
[2023-09-14] MEDS: LORazepam 2 MG/ML inj 0.5 MG IVP (20:30)
[2023-09-14 20:40] VITALS: O2SAT 93
--- NOTE | 2023-09-14 20:43 | CRLHL7_ITS ---
For Patients: As a result of the Century Cures Act, medical imaging exams and procedure reports are released immediately into your electronic medical record. You may view this report before your referring provider. If you have questions, please contact your health care provider. Indication: Pneumonia. Technique: Chest 2 views. Comparison: September 07, 2023. Findings/Impression: Cardiovascular and mediastinum: Heart size and vasculature are normal in caliber and appearance. Bilateral lower lobe pneumonia is not significantly changed. Remainder of the lungs and pleural spaces are clear. No pneumothorax. Lungs and pleural spaces: Lungs are clear. No sign of infiltrate or mass. No sign of pleural effusion. No pneumothorax. Bones and soft tissues: No significant findings. Dictated by Isra Khan MD @ 09/14/2023 9:41:25 PM (Electronically Signed)
--- OUTSIDE RECORDS SUMMARY | 2023-09-14 20:51 | XMS_ITS | Clinical Summary ---
Author Name Unknown Organization [facility] Address [address] [place] [address] Care Team Providers Care Harvest Worker Fruit Name Role Phone Elsewhere, Pcp Primary Care Provider Unavailabl e Source Comments Patient records contain information from all sites at [facility]. For routine questions regarding patient records, call [phone] during business hours, M-F 8:00 AM - 5:00 PM Central Time. Record requests for emergency care only can be directed to [phone] at any time.[facility] Allergies Active Allergy Reactions Criticality Noted Date [...] by mouth 3 (three) times a week. Ohbiid-Hnrswhvbb-Kn iday 0 03/14/2022 Active B complex-vitamins (BALANCE [...] Overview: Added automatically from request for surgery [id number] Encounters Date Type Department Care Team Description 07/08/2023 Orders Only Division of Thoracic Surgery in [place], [place] [address] [place] [phone] Susan Jarrett R.N. Thymoma (Primary Dx) from [...] often do you attend chur ch or restorationism services? Never 06/04/2022 Do you belong to any clubs o r organizations such as uatsdin groups, unions, fraternal or athletic groups, or [...] care, and heating? Not very hard 06/04/2022 [facility] - Occupational [...] place to sleep or slept in a mcc (including now)? No 06/04/2022 Nutrition Answer Date [...] Master's degree (e.g., MA, MS, Milly, MEd, TRAINING EXECUTIVE, MADELYN) 06/04/2022 Sex and Gender Information Value Date Recorded Sex Assigned at Female 06/04/2022 4:58 PM CDT Gender Identity Female 06/04/2022 4:58 PM CDT Sexual Orientation Straight 06/04/2022 4: 58 PM CDT Last Filed Vital Signs Vital Sign Reading Time Taken Comments Blood Pressure 125/53 08/27/2022 10:15 AM ASSOCIATE PROFESSOR PHYSICIAN Pulse 82 08/27/2022 10:15 AM ASSOCIATE PROFESSOR PHYSICIAN Temperature 36.8 ??C (98.2 ??F) 08/27/2022 10:[address] Respiratory Rate 16 08/27/2022 10:15 AM ASSOCIATE PROFESSOR PHYSICIAN Oxygen Saturation 98% 08/27/2022 10:15 AM ASSOCIATE PROFESSOR PHYSICIAN Inhaled Oxygen Concentration - - Weight 67.6 kg (149 lb 0.5 oz) 08/26/2022 9:15 A M ASSOCIATE PROFESSOR PHYSICIAN Height 173.9 cm (5' 8.47) 08/22/2022 7:06 AM CS T Body Mass Index 22.35 08/22/2022 7:06 AM ASSOCIATE PROFESSOR PHYSICIAN Plan of Treatment Upcoming Encounters Date Type Department Care Team (Late st Contact Info) Description 11/11/2023 10:40 AM CDT Appointment Department of Laboratory Medicine and Pathology, [facility], in [place], [place] [address] [place] [phone] Radha Keen APRN, C.N.P., M.S.N. [address] [place] [phone] 11/11/2023 11:15 AM CDT Appointment Department of Radiology, [facility] in [place], [place] [address] [place] [phone] Radha Keen APRN, C.N.P., M.S.N. [address] [place] [phone] 11/11/2023 1:00 PM CDT Office Visit Division of Thoracic Surgery in [place], [place] [address] [place] [phone] Radha Keen APRN, Sandip.N.P., M.S.N. [address] [place] [phone] Health Maintenance Due Date Last Done Comments [...] 02/03/2019, 01/03/2018 Influenza Vaccine Completed 06/28/2023, , 06/25/2022, Additional history exists COVID-19 Vaccine Completed 07/23/2023, 06/2023, 08/07/2022, Additional history exists Medical Devices Implanted Type Area Project Management Instructor Device Identifier Shelf Expiration Date Model / Serial / Lot Clp Hrzn Ti 6 Clp Lg Orng - [id number] Implanted:Qty: 1 on 08/22/2022 by Rosaura Claudio M.D., Ph.D. at [facility] Hardware e.g. pins/screws/r ods [employer] [id number] 04/16/2027 [id number] / / [id number] Ocular Lens Ocular Lens Eye Orthopedic Other Orthopedic Other Wrist Procedures Procedure Name Priority Date/Time Associated Diagnosis Comments OUTSIDE DX CHEST Routine 09/07/2023 12:3 5 PM ASSOCIATE PROFESSOR PHYSICIAN OUTSIDE CT BODY Routine 09/04/2023 11:10 PM ASSOCIATE PROFESSOR PHYSICIAN OUTSIDE DX CHEST Routine 09/04/2023 8:35 PM ASSOCIATE PROFESSOR PHYSICIAN from Last 3 Months Results * XR CHEST 1V PORTABLE-Outside Chest Xray (09/07/2023 12:35 PM ASSOCIATE PROFESSOR PHYSICIAN) Only the most recent of2 resultswithin the time period is included. Narrative [facility] - 09/08/2023 12:00 PM ASSOCIATE PROFESSOR PHYSICIAN This order has been created and auto-finalized to support the import of outside images. If available, original interpretation can be found on the Media Tab in Chart Review, in Document Viewer, or as an image in QREADS. If a re-interpretation or overread is required please follow defined workflow. ?? Provider Not In System IMG DIAGNOSTIC IM AGING PROCEDURES [facility]IMN NA * CT Angio Chest PE Protocol-Outside CT Body (09/04/2023 11:10 PM ASSOCIATE PROFESSOR PHYSICIAN) Narrative II - 09/08/2023 12:09 PM ASSOCIATE PROFESSOR PHYSICIAN This order has been created and auto-finalized to support the import of outside images. If available, original interpretation can be found on the Media Tab in Chart Review, in Document Viewer, or as an image in QREADS. If a re-interpretation or overread is required please follow defined workflow. ?? Provider Not In System IMG CT PROCEDURES [facility] NA from Last 3 Months Advance Directives For more information, please contact: [phone] Documents on File Type Date Recorded Patient Circulating Process Inspector Expl anation Advance Directives 08/22/2022 9:15 AM Rea Phillips HCPOA/ADVOCATE/AGENT/R EPRESENTATIVE/SURROGAT E Latest Code Status on File Code Status Date Activated Date Inactivated Comments Full Code 08/22/2022 3:36 PM 08/27/2022 2:15 PM Question Answer Comments Full Code: Not Discussed Due to: Patient not available Healthcare Agents on File Name Relationship Healthcare Agent Relationship Communication Rea Sousa Sister Health Care Agent [email or web address] Abraham Jacqueline Leavitt Health Care Agent [email or web address] Alex Leavitt First Altern ate Health Care Agent Care Teams Harvest Worker Fruit Relationship Specialty Start Date End Date Elsewhere, Pcp PCP - General Family Medicine 01/03/18
--- OUTSIDE RECORDS SUMMARY | 2023-09-14 20:52 | XMS_ITS | Encounter Summary ---
Author Name Unknown Organization [facility] Address [address] [place] [address] Care Team Providers Care Label Drier Name Role Phone Elsewhere, Pcp Primary Care Provider Unavailabl e Encounter Details Date Type Department Care Team (Late st Contact Info) Description 10/03/2022 Clinical Communication Division of Thoracic Surgery in [place], [place] [address] [place] [phone] Rosaura Claudio M.D., Ph.D. [address] [place] [address] Social History Tobacco Use Types Packs/Day Years [...] often do you attend chur ch or baptist services? Never 06/04/2022 Do you belong to any clubs o r organizations such as hoahaoism groups, unions, fraGlobal Velocity or athletic groups, or school groups? No [...] care, and heating? Not very hard 06/04/2022 [facility] of Occupat ional Health - Occupational Stress [...] Master's degree (e.g., MA, MS, Milly, MEd, LEAD SYSTEMS ENGINEER, MADELYN) 06/04/2022 Sex and Gender Information Value Date Recorded Sex Assigned at Female 06/04/2022 4:58 PM CDT Gender Identity Female 06/04/2022 4:58 PM CDT Sexual Orientation Straight 06/04/2022 4: 58 PM CDT documented as of this encounter Miscellaneous Notes * Telephone Encounter - Radha Keen APRN, C.N.P. - 10/05/2022 1:34 PM CST Left another message. RMATION SYSTEMS SPECIALIST * Telephone Encounter - Radha Keen APRN, C.N.P. - 10/04/2022 9:46 AM CST Left message RMATION SYSTEMS SPECIALIST documented in this encounter Plan of Treatment Upcoming Encounters Date Type Department Care Team (Late st Contact Info) Description 11/11/2023 10:40 AM CDT Appointment Department of Laboratory Medicine and Pathology, [place], [place] [address] [place] [phone] Radha Keen APRN, C.N.P., M.S.N. [address] [place] [phone] 11/11/2023 11:15 AM CDT Appointment Department of Radiology, [facility] in [place], [place] [address] [place] [phone] Radha Keen APRN, Sandip.N.P., M.S.N. [address] [place] [phone] 11/11/2023 1:00 PM CDT Office Visit Division of Thoracic Surgery in [place], [place] [address] [place] [phone] Radha Keen APRN, C.N.P., M.S.N. [address] [place] [phone] documented as of this encounter Visit Diagnoses Not on filedocumented in this encounter Care Teams Label Drier Relationship Specialty Start Date End Date Elsewhere, Pcp PCP - General Family Medicine 01/03/18 documented as of this encounter
--- OUTSIDE RECORDS SUMMARY | 2023-09-14 20:52 | XMS_ITS | Encounter Summary ---
Author Name Unknown Organization [facility] Address [address] [place] [address] Care Team Providers Care Wastewater Supervisor Name Role Phone Elsewhere, Pcp Primary Care Provider Unavailabl e Reason for Visit * Reason Onset Date Comments Pre-visit Intake 10/12/2022 Encounter Details Date Type Department Care Team (Latest Contact Info) Description 10/12/2022 11:30 AM CONSTRUCTION EQUIPMENT TECHNICIAN Clinical Communication Virtual Review in [place], [place] 200 [place], [place] [phone] Pre-visit Intake Social History Tobacco Use Types [...] How often do you attend chur or sabianist services? Never 06/04/2022 Do you belong to any clubs o r organizations such as yazdanism groups, unions, fraternal or athletic groups, or [...] care, and heating? Not very hard 06/04/2022 [facility] - Occupational Stress Questionnaire [...] or slept in a correction (including now)? No 06/04/2022 Nutrition Answer Date [...] Master's degree (e.g., MA, MS, Milly, MEd, DIABETES CLINICAL MANAGER, MADELYN) 06/04/2022 Sex and Gender Information Value Date Recorded Sex Assigned at Female 06/04/2022 4:58 PM CDT Gender Identity Female 06/04/2022 4:58 PM CDT Sexual Orientation Straight 06/04/2022 4: 58 PM CDT documented as of this encounter Plan of Treatment Upcoming Encounters Date Type Department Care Team (Late st Contact Info) Description 11/11/2023 10:40 AM CDT Appointment Department of Laboratory Medicine and Pathology, [facility], in [place], [place] [address] [place] [address] Radha Keen APRN, C.N.P., M.S.N. [address] [place] [phone] 11/11/2023 11:15 AM CDT Appointment Department of Radiology, [facility], in [place], [place] [address] [place] [phone] Radha Keen APRN, C.N.P., M.S.N. [address] [place] [phone] 11/11/2023 1:00 PM CDT Office Visit Division of Thoracic Surgery in [place], [place] [address] [place] [phone] Radha Keen APRN, C.NLuz Maria, M.S.N. [address] [place] [phone] documented as of this encounter Visit Diagnoses Not on filedocumented in this encounter Care Teams Wastewater Supervisor Relationship Specialty Start Date End Date Elsewhere, Pcp PCP - General Family Medicine 01/03/18 documented as of this encounter
--- OUTSIDE RECORDS SUMMARY | 2023-09-14 20:52 | XMS_ITS | Encounter Summary ---
Author Name Unknown Organization [facility] Address [address] [place] [address] Care Team Providers Care Center Punch Operator Name Role Phone Elsewhere, Pcp Primary Care Provider Unavailabl e Encounter Details Date Type Department Care Team (Latest Contact Info) Description 04/18/2023 Clinical Communication Department of Cardiovascular Surgery in [place], [place] [address] [place] [phone] Rosaura Claudio M.D., Ph.D. [address] [place] [phone] Social History Tobacco Use Types Packs/Day Years [...] How often do you attend chur or zoroastrianism services? Never 06/04/2022 Do you belong to any clubs o r organizations such as synagogue groups, unions, fraternal or athletic groups, or [...] care, and heating? Not very hard 06/04/2022 [facility] [place] of Occupat ional Health - Occupational Stress [...] place to sleep or slept in a care home (including now)? No 06/04/2022 Nutrition Answer [...] Master's degree (e.g., MA, MS, Milly, MEd, INTERNAL AUDIT SENIOR MANAGER, MADELYN) 06/04/2022 Sex and Gender Information [...] Appointment Department of Laboratory Medicine and Pathology, [facility] in [place], [place] [address] [place] [phone] Radha Keen APRN, C.N.P., M.S.N. [address] [place] [phone] 11/11/2023 11:15 AM CDT Appointment Department of Radiology, [facility] in [place], [place] [address] [place] [phone] Radha Keen APRN, C.N.P., M.S.N. [address] [place] [phone] 11/11/2023 1:00 PM CDT Office Visit Division of Thoracic Surgery in [place], [place] [address] [place] [phone] Radha Keen APRN, C.N.P., M.S.N. [address] [place] [phone] documented as of this encounter Visit Diagnoses Not on filedocumented in this encounter Care Teams Center Punch Operator Relationship Specialty Start Date End Date Elsewhere, Pcp PCP - General Family Medicine 01/03/18 documented as of this encounter
--- OUTSIDE RECORDS SUMMARY | 2023-09-14 20:52 | XMS_ITS | Encounter Summary ---
Author Name Unknown Organization [facility] Address [address] [place] [address] Care Team Providers Care Pattern Changer And Repairer Name Role Phone Elsewhere, Pcp Primary Care Provider Unavailabl e Encounter Details Date Type Department Care Team (Late st Contact Info) Description 10/26/2022 Clinical Communication Division of Thoracic Surgery in [place], [place] [address] [place] [address] Susan Jarrett, RYesikaN. Social History Tobacco Use [...] How often do you attend chur or rastafarian services? Never 06/04/2022 Do you [...] or slept in a usp (including now)? No 06/04/2022 Nutrition Answer Date [...] Master's degree (e.g., MA, MS, Milly, MEd, COUNTER SALES PERSON, MADELYN) 06/04/2022 Sex and Gender Information Value Date Recorded Sex Assigned at Female 06/04/2022 4:58 PM CDT Gender Identity Female 06/04/2022 4:58 PM CDT Sexual Orientation Straight 06/04/2022 4: 58 PM CDT documented as of this encounter Miscellaneous Notes * Addendum Note - Suly Mansfield APRN, C.N.P. - 10/26/2022 10:09 AM WOOD MILLER Addended by: SULY MANSFIELD on: 10/26/2022 10:09 AM Modules accepted: Orders MILLER * Telephone Encounter - Susan Jarrett R.N. - 10/26/2022 9:43 AM WOOD MILLER PLAN The following information was provided: Patient [...] following references were used: nursing clinical judgement MILLER documented in this encounter Plan of Treatment Upcoming Encounters Date Type Department Care Team (Late st Contact Info) Description 11/11/2023 10:40 AM CDT Appointment Department of Laboratory Medicine and Pathology, [facility], in [place], [place] [address] [place] [phone] Suly Mansfield APRN, Sandip.N.Avery., M.S.N. [address] [place] [phone] 11/11/2023 11:15 AM CDT Appointment Department of Radiology, [facility], in [place], [place] [address] [place] [address] Suly Mansfield APRN, C.N.P., M.S.N. [address] [place] [phone] 11/11/2023 1:00 PM CDT Office Visit Division of Thoracic Surgery in [place], [place] [address] [place] [phone] Suly Mansfield APRN, C.N.P., M.S.N. [address] [place] [phone] documented as of this encounter Visit Diagnoses Not on filedocumented in this encounter Care Teams Pattern Changer And Repairer Relationship Specialty Start Date End Date Elsewhere, Pcp PCP - General Family Medicine 01/03/18 documented as of this encounter
--- OUTSIDE RECORDS SUMMARY | 2023-09-14 20:52 | XMS_ITS | Referral Summary ---
Author Name Unknown Organization [facility] Address [address] [place] [address] Care Team Providers Care Lubricating Engineer Name Role Phone Elsewhere, Pcp Primary Care Provider Unavailabl e Source Comments Patient records contain information from all sites at [facility]. For routine questions regarding patient records, call [phone] during business hours, M-F 8:00 AM - 5:00 PM Central Time. Record requests for emergency care only can be directed to [phone] at any time.[facility] Encounters Date Type Department Care Team Description 07/08/2023 Orders Only Division of Thoracic Surgery in [place], [place] [address] [place] [address] Susan Jarrett R.N. Thymoma (Primary Dx) from [...] by mouth 3 (three) times a week. [id number]-[id number] iday 0 03/14/2022 Active B complex-vitamins (BALANCE [...] Overview: Added automatically from request for surgery [id number] Immunizations Name Administration Dates Next Due PCV13 [...] care, and heating? Not very hard 06/04/2022 [facility] of Occupat ional Health - Occupational Stress [...] place to sleep or slept in a intermediate (including now)? No 06/04/2022 Nutrition Answer Date [...] Master's degree (e.g., MA, MS, Milly, MEd, TOBACCO STRIPPING MACHINE OPERATOR, MADELYN) 06/04/2022 Sex and Gender Information Value Date Recorded Sex Assigned at Female 06/04/2022 4:58 PM CDT Gender Identity Female 06/04/2022 4:58 PM CDT Sexual Orientation Straight 06/04/2022 4: 58 PM CDT Last Filed Vital Signs Vital Sign Reading Time Taken Comments Blood Pressure 125/53 08/27/2022 10:15 AM CAN FILLER Pulse 82 08/27/2022 10:15 AM CAN FILLER Temperature 36.8 ??C (98.2 ??F) 08/27/2022 10:[address] Respiratory Rate 16 08/27/2022 10:15 AM CAN FILLER Oxygen Saturation 98% 08/27/2022 10:15 AM CAN FILLER Inhaled Oxygen Concentration - - Weight 67.6 kg (149 lb 0.5 oz) 08/26/2022 9:15 A M CAN FILLER Height 173.9 cm (5' 8.47) 08/22/2022 7:06 AM CS T Body Mass Index 22.35 08/22/2022 7:06 AM CAN FILLER Plan of Treatment Upcoming Encounters Date Type Department Care Team (Late st Contact Info) Description 11/11/2023 10:40 AM CDT Appointment Department of Laboratory Medicine and Pathology, [facility], in [place], [place] [address] [place] [address] Radha Keen APRN, C.N.P., M.S.N. [address] [place] [phone] 11/11/2023 11:15 AM CDT Appointment Department of Radiology, [facility], in [place], [place] [address] [place] [phone] Radha Keen APRN, C.N.P., M.S.N. [address] [place] [phone] 11/11/2023 1:00 PM CDT Office Visit Division of Thoracic Surgery in [place], [place] [address] [place] [phone] Radha Keen APRN, C.N.P., M.S.N. [address] [place] [phone] Medical Devices Implanted Type Area Boat Carpenter Mechanic Device Identifier Shelf Expiration Date Model / Serial / Lot Clp Hrzn Ti 6 Clp Lg Orng - [id number] Implanted:Qty: 1 on 08/22/2022 by Rosarua Claudio M.D., Ph.D. at [facility] [place] Hardware e.g. pins/screws/r ods [employer] [id number] 04/16/2027 [id number] / / [id number] Ocular Lens Ocular Lens Eye Orthopedic Other Orthopedic Other Wrist Procedures Procedure Name Priority Date/Time Associated Diagnosis Comments OUTSIDE DX CHEST Routine 09/07/2023 12:3 5 PM CAN FILLER OUTSIDE CT BODY Routine 09/04/2023 11:10 PM CAN FILLER OUTSIDE DX CHEST Routine 09/04/2023 8:35 PM CAN FILLER from Last 3 Months Results * XR CHEST 1V PORTABLE-Outside Chest Xray (09/07/2023 12:35 PM CAN FILLER) Only the most recent of2 resultswithin the time period is included. Narrative [facility] - 09/08/2023 12:00 PM CAN FILLER This order has been created and auto-finalized to support the import of outside images. If available, original interpretation can be found on the Media Tab in Chart Review, in Document Viewer, or as an image in QREADS. If a re-interpretation or overread is required please follow defined workflow. ?? Provider Not In System IMG DIAGNOSTIC IM AGING PROCEDURES Performing Organization Address [facility] de Phone Number [facility] NA * CT Angio Chest PE Protocol-Outside CT Body (09/04/2023 11:10 PM CAN FILLER) Narrative [facility] - 09/08/2023 12:09 PM CAN FILLER This order has been created and auto-finalized to support the import of outside images. If available, original interpretation can be found on the Media Tab in Chart Review, in Document Viewer, or as an image in QREADS. If a re-interpretation or overread is required please follow defined workflow. ?? Provider Not In System IMG CT PROCEDURES Performing Organization Address [facility] de Phone Number [facility] NA from Last 3 Months Advance Directives For more information, please contact: [phone] Documents on File Type Date Recorded Patient Transonic Engineer Expl anation Advance Directives 08/22/2022 9:15 AM Rea Phillips HCPOA/ADVOCATE/AGENT/R EPRESENTATIVE/SURROGAT E Latest Code Status on File Code Status Date Activated Date Inactivated Comments Full Code 08/22/2022 3:36 PM 08/27/2022 2:15 PM Question Answer Comments Full Code: Not Discussed Due to: Patient not available Healthcare Agents on File Name Relationship Healthcare Agent Relationship Communication Rea Duran Health Care Agent [phone] (Home) [email or web address] Abraham Leavitt Health Care Agent [email or web address] Alex Irvin Jacqueline Leavitt First Altern ate Health Care Agent Care Teams Lubricating Engineer Relationship Specialty Start Date End Date Elsewhere, Pcp PCP - General Family Medicine 01/03/18
--- OUTSIDE RECORDS SUMMARY | 2023-09-14 20:52 | XMS_ITS | Encounter Summary ---
Author Name Unknown Organization [facility] Address [address] [place] [address] Care Team Providers Care Supervisor Vine Fruit Farming Name Role Phone Elsewhere, Pcp Primary Care Provider Unavailabl e Encounter Details Date Type Department Care Team (Late st Contact Info) Description 09/20/2022 Orders Only Division of Thoracic Surgery in [place], [place] [address] [place] [phone] Mookie Jaimes III, P.AYesika-Angela [address] [place] [address] Social History Tobacco Use Types Packs/Day Years [...] 06/04/2022 How often do you attend chur [employer] or anabaptism services? Never 06/04/2022 Do you belong to [...] care, and heating? Not very hard 06/04/2022 [facility] of Occupat ional Health - Occupational Stress [...] or slept in a long-term (including now)? No 06/04/2022 Nutrition Answer Date [...] Master's degree (e.g., MA, MS, Milly, MEd, HOME TEACHING GRADES 7 AND 8 TEACHER, MADELYN) 06/04/2022 Sex and Gender Information Value [...] and Pathology, [facility], in [place], [place] [address] [place] [address] Radha Keen APRN, C.N.P., M.S.N. [address] [place] [phone] 11/11/2023 11:15 AM CDT Appointment Department of Radiology, [facility], in [place], [place] [address] [place] [phone] Radha Keen APRN, C.NCasandra., M.S.N. [address] [place] [phone] 11/11/2023 1:00 PM CDT Office Visit Division of Thoracic Surgery in [place], [place] [address] [place] [phone] Radha Keen APRN, Sandip.N.P., M.S.N. [address] [place] [phone] documented as of this encounter Visit Diagnoses Not on filedocumented in this encounter Care Teams Supervisor Vine Fruit Farming Relationship Specialty Start Date End Date Elsewhere, Pcp PCP - General Family Medicine 01/03/18 documented as of this encounter
--- OUTSIDE RECORDS SUMMARY | 2023-09-14 20:52 | XMS_ITS | Encounter Summary ---
Author Name Unknown Organization [facility] Address [address] [place] [address] Care Team Providers Care Instructional Paraprofessional Name Role Phone Elsewhere, Pcp Primary Care Provider Unavailabl e Reason for Visit * Reason Comments Med Refill Encounter Details Date Type Department Care Team (Late st Contact Info) Description 10/26/2022 Refill Division of Thoracic Surgery in [place], [place] [address] [place] [phone] Radha Keen APRN, C.N.P., M.S.N. [address] [place] [phone] Med Refill Social History Tobacco Use Types [...] How often do you attend chur or rastafari services? Never 06/04/2022 Do you belong to any clubs o r organizations such as orthodox groups, unions, fraternal or athletic groups, or [...] care, and heating? Not very hard 06/04/2022 [facility] [place] [facility] - Occupational Stress Questionnaire [...] place to sleep or slept in a skilled nursing (including now)? No 06/04/2022 Nutrition Answer Date [...] Master's degree (e.g., MA, MS, Milly, MEd, ROTARY ADJUSTER, MADELYN) 06/04/2022 Sex and Gender Information Value Date Recorded Sex Assigned at Female 06/04/2022 4:58 PM CDT Gender Identity Female 06/04/2022 4:58 PM CDT Sexual Orientation Straight 06/04/2022 4: 58 PM CDT documented as of this encounter Plan of Treatment Upcoming Encounters Date Type Department Care Team (Late st Contact Info) Description 11/11/2023 10:40 AM CDT Appointment Department of Laboratory Medicine and Pathology, [facility] in [place], [place] [address] [place] [phone] Radha Keen APRN, C.NLuz Maria, M.S.N. [address] [place] [phone] 11/11/2023 11:15 AM CDT Appointment Department of Radiology, [facility] in [place], [place] [address] [place] [phone] Radha Keen APRN, C.NLuz Maria, M.S.N. [address] [place] [phone] 11/11/2023 1:00 PM CDT Office Visit Division of Thoracic Surgery in [place], [place] [address] [place] [phone] Radha Keen APRN, C.NCasandra., M.S.N. [address] [place] [phone] documented as of this encounter Visit Diagnoses Not on filedocumented in this encounter Care Teams Instructional Paraprofessional Relationship Specialty Start Date End Date Elsewhere, Pcp PCP - General Family Medicine 01/03/18 documented as of this encounter
--- OUTSIDE RECORDS SUMMARY | 2023-09-14 20:52 | XMS_ITS | Encounter Summary ---
Author Name Unknown Organization [facility] Address [address] [place] [address] Care Team Providers Care Leather Tanner Name Role Phone Elsewhere, Pcp Primary Care Provider Unavailabl e Reason for Referral * Outpatient (Routine) - Authorized Specialty Diagnoses / Procedures Referred By Joe t Referred To Contact Thoracic Surgery Radha Keen APRN, C.N.PYesika, M.S.N. [address] [place] [phone] [facility] Referral ID Status Reason Start Date Expiration Date V isits Requested Visits Authorized [id number] Authorized 07/08/2023 07/07/2026 1 1 Scheduling Instructions With Radha Keen NP after CT scan E BUILDER * MRI/CAT/PET Scan (Routine) - Authorized Specialty Diagnoses / Procedures Referred By Contac t Referred To Contact Radiology Diagnoses Thymoma Procedures CT Chest with IV Contrast Radha Keen APRN, C.N.PYesika, M.S.N. [address] [place] [phone] [place] Referral ID Status Reason Start Date Expiration Date V isits Requested Visits Authorized [id number] Authorized 07/08/2023 07/07/2024 1 1 E BUILDER Encounter Details Date Type Department Care Team (Late st Contact Info) Description 07/08/2023 Orders Only Division of Thoracic Surgery in [place], [place] [address] [place] [phone] Susan Jarrett RNazia Thymoma (Primary Dx) Social History Tobacco Use [...] often do you attend chur ch or yazdanism services? Never 06/04/2022 Do you belong to [...] care, and heating? Not very hard 06/04/2022 [facility] of Occupat ional Health - Occupational Stress [...] place to sleep or slept in a snf (including now)? No 06/04/2022 Nutrition Answer Date [...] Master's degree (e.g., DICK, MS, Milly, MEd, PROCESS CONTROL MANAGER, MADELYN) 06/04/2022 Sex and Gender Information [...] Appointment Department of Laboratory Medicine and Pathology, [place], [place] [address] [place] [phone] Radha Keen APRN, C.N.P., M.S.N. [address] [place] [phone] 11/11/2023 11:15 AM CDT Appointment Department of Radiology, [place], [place] [address] [place] [phone] Radha Keen APRN, C.N.P., M.S.N. [address] [place] [phone] 11/11/2023 1:00 PM CDT Office Visit Division of Thoracic Surgery in [place], [place] 200 [place] [phone] Radha Keen APRN, C.N.P., M.S.N. [address] [place] [phone] Scheduled Orders Name Type Priority Associated Diagnoses Orde r Schedule Creatinine with Estimated GFR Lab Routine Thymoma Expected: 09/18/2023 (Approximate), Expires: 10/08/2024 CT Chest with IV Contrast Imaging RAD - Routine (most inpatients and all outpatients) Thymoma Expected: 11/11/2023 (Approximate), Expires: 07/08/2024 Scheduled Referrals Name Type Priority Associated Diagnoses Orde r Schedule Thoracic Surgery office visit (clinic) Outpatient Referral Routine Expected: 09/19/2023 (Approximate), Expires: 10/08/2024 documented as of this encounter Visit Diagnoses Diagnosis Thymoma- Primary documented in this encounter Care Teams Leather Tanner Relationship Specialty Start Date End Date Elsewhere, Pcp PCP - General Family Medicine 01/03/18 documented as of this encounter
--- OUTSIDE RECORDS SUMMARY | 2023-09-14 20:52 | XMS_ITS | Encounter Summary ---
Author Name Unknown Organization [facility] Address [address] [place] [address] Care Team Providers Care Equity Analyst Name Role Phone Elsewhere, Pcp Primary Care Provider Unavailabl e Reason for Referral * MRI/CAT/PET Scan (Routine) - Closed Specialty Diagnoses / Procedures Referred By Joe allison Referred To Contact Radiology Diagnoses Mass Mediastinal Procedures CT Chest with IV Contrast Abril Nash P.A.-C. 200 [place] [address] [facility] Referral ID Status Reason Start Date Expiration Date Visits Re quested Visits Authorized [id number] Closed 10/30/2022 10/30/2023 1 1 Reason for Visit * MRI/CAT/PET Scan (Routine) - Closed Specialty Diagnoses / Procedures Referred By Joe allison Referred To Contact Radiology Diagnoses Mass Mediastinal Procedures CT Chest with IV Contrast Abril Nash P.A.-C. [address] [place] [address] [facility] Referral ID Status Reason Start Date Expiration Date Visits Re quested Visits Authorized [id number] Closed 10/30/2022 10/30/2023 1 1 Encounter Details Date Type Department Care Team (Latest Contact Info) Description 05/02/2023 10:21 AM CDT - 05/02/2023 11:59 PM CDT Hospital Encounter Department of Radiology, [facility], in [place], [place] [address] [place] [address] Abril Nash P.A.-C. [address] [place] [address] Mass Mediastinal Discharge Disposition: Home or Self [...] often do you attend chur ch or lutheran services? Never 06/04/2022 Do you belong to any clubs o r organizations such as bahai groups, unions, fraternal or athletic groups, [...] care, and heating? Not very hard 06/04/2022 [facility] [place] of Occupat ional Health - Occupational Stress [...] Master's degree (e.g., MA, MS, Milly, MEd, NEURO INTENSIVIST PHYSICIAN, MADELYN) 06/04/2022 Sex and Gender Information Value [...] by mouth 3 (three) times a week. [id number] 0 03/14/2022 documented as of this encounter Plan of Treatment Upcoming Encounters Date Type Department Care Team (Late st Contact Info) Description 11/11/2023 10:40 AM CDT Appointment Department of Laboratory Medicine and Pathology, [facility] in [place], [place] [address] [place] [address] Radha Keen APRN, C.N.P., M.S.N. [address] [place] [phone] 11/11/2023 11:15 AM CDT Appointment Department of Radiology, [facility], in [place], [place] [address] [place] [address] Radha Keen APRN, C.N.P., M.S.N. [address] [place] [phone] 11/11/2023 1:00 PM CDT Office Visit Division of Thoracic Surgery in [place], [place] [address] [place] [address] Radha Keen APRN, C.NCasandra., M.S.N. [address] [place] [phone] documented as of this encounter Procedures Procedure [...] lower lobe solid noncalcified pulmonary nodule on /546. Unchanged 3 mm left lower lobe groundglass pulmonary nodule laterally on 3/466 and 4 mm lateral right lower lobe groundglass nodule on 3/440. Numerous additional sub-3 mm noncalcified micronodules in both lungs, for example on left upper lobe /107, 109 which are similar to the prior. [...] both lungs, for example on left upper lobe3/107, 109 which are similar to the prior. [...] mL documented in this encounter Care Teams Equity Analyst Relationship Specialty Start Date End Date Elsewhere, Pcp PCP - General Family Medicine 01/03/18 documented as of this encounter
--- OUTSIDE RECORDS SUMMARY | 2023-09-14 20:52 | XMS_ITS | Encounter Summary ---
Author Name Unknown Organization [facility] Address [address] [place] [address] Care Team Providers Care Mortgage Field Inspector Name Role Phone Elsewhere, Pcp Primary Care Provider Unavailabl e Reason for Visit * Reason Onset Date Comments Pre-visit Intake 05/01/2023 Encounter Details Date Type Department Care Team (Latest Contact Info) Description 05/01/2023 12:00 PM CDT Clinical Communication Virtual Review in [place], [place] 200 [place] [address] Pre-visit Intake Social History Tobacco Use Types [...] How often do you attend chur or scientology services? Never 06/04/2022 Do you belong to any clubs o r organizations such as cheondoism groups, unions, fraternal or athletic groups, or [...] Master's degree (e.g., MA, MS, Milly, MEd, FOOD ANALYST, MADELYN) 06/04/2022 Sex and Gender Information Value Date Recorded Sex Assigned at Female 06/04/2022 4:58 PM CDT Gender Identity Female 06/04/2022 4:58 PM CDT Sexual Orientation Straight 06/04/2022 4: 58 PM CDT documented as of this encounter Plan of Treatment Upcoming Encounters Date Type Department Care Team (Late st Contact Info) Description 11/11/2023 10:40 AM CDT Appointment Department of Laboratory Medicine and Pathology, [facility], in [place], [place] [address] [place] [address] Radha Keen APRN, C.N.P., M.S.N. [address] [place] [phone] 11/11/2023 11:15 AM CDT Appointment Department of Radiology, [facility], in [place], [place] [address] [place] [phone] Radha Keen APRN, C.N.P., M.S.N. [address] [place] [phone] 11/11/2023 1:00 PM CDT Office Visit Division of Thoracic Surgery in [place], [place] [address] [place] [phone] Radha Keen APRN, C.NLuz Maria, M.S.N. [address] [place] [phone] documented as of this encounter Visit Diagnoses Not on filedocumented in this encounter Care Teams Mortgage Field Inspector Relationship Specialty Start Date End Date Elsewhere, Pcp PCP - General Family Medicine 01/03/18 documented as of this encounter
--- OUTSIDE RECORDS SUMMARY | 2023-09-14 20:52 | XMS_ITS | Encounter Summary ---
Author Name Unknown Organization [facility] Address [address] [place] [address] Care Team Providers Care Deep Tissue Massage Therapist Name Role Phone Elsewhere, Pcp Primary Care Provider Unavailabl e Reason for Visit * Outpatient (Routine) - Closed Specialty Diagnoses / Procedures Referred By Joe allison Referred To Contact Thoracic Surgery Abril Nash P.A.-C. [address] [place] [phone] [facility] Referral ID Status Reason Start Date Expiration Date Visits Re quested Visits Authorized [id number] Closed 10/30/2022 10/29/2025 1 1 Encounter Details Date Type Department Care Team (Late st Contact Info) Description 05/02/2023 1:00 PM CDT Office Visit Division of Thoracic Surgery in [place], [place] [address] [place] [phone] Radha Keen APRN, C.N.P., M.S.N. [address] [place] [phone] Thymoma (Primary Dx) Social History Tobacco Use [...] often do you attend chur ch or confucianism services? Never 06/04/2022 Do you belong to any clubs o r organizations such as lutheran groups, unions, fraternal or athletic groups, or [...] care, and heating? Not very hard 06/04/2022 [facility] [place] of Occupat ional Health - Occupational Stress [...] Master's degree (e.g., MA, MS, Milly, MEd, CREDIT RISK OFFICER, MADELYN) 06/04/2022 Sex and Gender Information Value [...] of Laboratory Medicine and Pathology, [facility] in [place], [place] [address] [place] [phone] Radha Keen APRN, C.N.P., M.S.N. [address] [place] [phone] 11/11/2023 11:15 AM CDT Appointment Department of Radiology, [place], [place] [address] [place] [phone] Radha Keen APRN, C.N.P., M.S.N. [address] [place] [phone] 11/11/2023 1:00 PM CDT Office Visit Division of Thoracic Surgery in [place], [place] [address] [place] [address] Radha Keen APRN, C.N.P., M.S.N. [address] [place] [address] documented as of this encounter Visit Diagnoses Diagnosis Thymoma- Primary documented in this encounter Care Teams Deep Tissue Massage Therapist Relationship Specialty Start Date End Date Elsewhere, Pcp PCP - General Family Medicine 01/03/18 documented as of this encounter
--- OUTSIDE RECORDS SUMMARY | 2023-09-14 20:52 | XMS_ITS | Encounter Summary ---
Author Name Unknown Organization [facility] Address [address] [place] [address] Care Team Providers Care Seismograph Recorder Name Role Phone Elsewhere, Pcp Primary Care Provider Unavailabl e Encounter Details Date Type Department Care Team (Latest Contact Info) Description 05/02/2023 8:50 AM CDT - 05/02/2023 10:20 AM CDT Hospital Encounter Department of Laboratory Medicine and Pathology, [facility], in [place], [place] [address] [place] [address] Abril Nash P.A.-C. [address] [place] [address] Mass Mediastinal Discharge Disposition: Home or Self [...] How often do you attend chur or amish services? Never 06/04/2022 Do you belong to any clubs o r organizations such as jew groups, unions, fraternal or athletic groups, or [...] care, and heating? Not very hard 06/04/2022 [facility] [place] of Occupat ional Health - Occupational Stress [...] Master's degree (e.g., MA, MS, Milly, MEd, MATERIAL HANDLING TECHNICIAN, MADELYN) 06/04/2022 Sex and Gender Information [...] by mouth 3 (three) times a week. [id number] 0 03/14/2022 documented as of this encounter Plan of Treatment Upcoming Encounters Date Type Department Care Team (Late st Contact Info) Description 11/11/2023 10:40 AM CDT Appointment Department of Laboratory Medicine and Pathology, [place], [place] [address] [place] [phone] Radha Keen APRN, C.N.P., M.S.N. [address] [place] [phone] 11/11/2023 11:15 AM CDT Appointment Department of Radiology, [facility] in [place], [place] [address] [place] [phone] Radha Keen APRN, Sandip.N.P., M.S.N. [address] [place] [phone] 11/11/2023 1:00 PM CDT Office Visit Division of Thoracic Surgery in [place], [place] [address] [place] [phone] Radha Keen APRN, C.N.P., M.S.N. [address] [place] [phone] documented as of this encounter Procedures Procedure [...] Abril Nash P.A.-C. LAB BLOOD ADD- ON [facility] [address] [place] [address], [facility] DTL [facility] [address] [place] [address] documented in this encounter Visit Diagnoses Diagnosis Mass Mediastinal documented in this encounter Care Teams Seismograph Recorder Relationship Specialty Start Date End Date Elsewhere, Pcp PCP - General Family Medicine 01/03/18 documented as of this encounter
--- OUTSIDE RECORDS SUMMARY | 2023-09-14 20:52 | XMS_ITS | Encounter Summary ---
Author Name Unknown Organization [facility] Address [address] [place] [address] Care Team Providers Care Flow Specialist Name Role Phone Elsewhere, Pcp Primary Care Provider Unavailabl e Reason for Referral * Outpatient (Routine) - Closed Specialty Diagnoses / Procedures Referred By Joe allison Referred To Contact Thoracic Surgery Abril Nash P.A.-C. 200 [place] [address] [facility] Referral ID Status Reason Start Date Expiration Date Visits Re quested Visits Authorized [id number] Closed 10/30/2022 10/29/2025 1 1 UNITY DEVELOPMENT DIRECTOR * MRI/CAT/PET Scan (Routine) - Closed Specialty Diagnoses / Procedures Referred By Joe allison Referred To Contact Radiology Diagnoses Mass Mediastinal Procedures CT Chest with IV Contrast Abril Nash P.A.-C. [address] [place] [phone] [facility] Referral ID Status Reason Start Date Expiration Date Visits Re quested Visits Authorized [id number] Closed 10/30/2022 10/30/2023 1 1 UNITY DEVELOPMENT DIRECTOR Reason for Visit * Outpatient (Routine) - Closed Specialty Diagnoses / Procedures Referred By Joe t Referred To Contact Video Medicine Diagnoses Mass Mediastinal Delaney Wade M.D. [facility] Referral ID Status Reason Start Date Expiration Date Visits Re quested Visits Authorized [id number] Closed 08/27/2022 08/27/2023 1 1 Encounter Details Date Type Department Care Team (Late st Contact Info) Description 10/15/2022 11:00 AM COMMUNITY DEVELOPMENT DIRECTOR Telemedicine Division of Thoracic Surgery in [place], [place] [address] [place] [phone] Abril Nash P.A.-C. [address] [place] [address] Mass Mediastinal Social History Tobacco Use Types [...] often do you attend chur ch or druze services? Never 06/04/2022 Do you belong to any clubs o r organizations such as baptism groups, unions, fraternal or athletic groups, or [...] care, and heating? Not very hard 06/04/2022 [facility] of Occupat ional Health - Occupational Stress [...] or slept in a fpc (including now)? No 06/04/2022 Nutrition Answer Date [...] Master's degree (e.g., MA, MS, Milly, MEd, FILM SORTER, MADELYN) 06/04/2022 Sex and Gender Information Value [...] it was necessary. Postoperative visit no charge. UNITY DEVELOPMENT DIRECTOR documented in this encounter Plan of Treatment Upcoming Encounters Date Type Department Care Team (Late st Contact Info) Description 11/11/2023 10:40 AM CDT Appointment Department of Laboratory Medicine and Pathology, [facility] in [place], [place] [address] [place] [phone] Radha Keen APRN, Sandip.NYesikaP., M.S.N. [address] [place] [phone] 11/11/2023 11:15 AM CDT Appointment Department of Radiology, [facility] in [place], [place] [address] [place] [phone] Radha Keen APRN, AngelaNYesikaP., M.S.N. [address] [place] [phone] 11/11/2023 1:00 PM CDT Office Visit Division of Thoracic Surgery in [place], [place] [address] [place] [phone] Radha Keen APRN, C.NYesikaPYesika, M.S.N. [address] [place] [address] Scheduled Referrals Name Type Priority Associated Diagnoses [...] aorta on 310, anterolateral pleural surface of /310, overlying the posterior right hemidiaphragm inferiorly on [...] Unchanged 9 mm left adrenal nodule on 3/627 and similar somewhat ill-defined thickening of the [...] ascending aorta on 310,anterolateral pleural surface of /310, overlying the posterior right hemidiaphragm inferiorly on [...] on 340 has decreased in size from 10mm previously. A 7 mm right infrahilar lymph node on 375 previously measured 5 mm. Additionalscattered unchanged subcentimeter [...] medial limb of the left adrenal gland on9. The visualized upper abdomen is otherwise unremarkable. [...] mildly increased in size. Abril Nash P.A.-C. [facility] CT PROCEDU RES * Creatinine with Estimated GFR (05/02/2023 9:09 AM CDT) Creatinine 0.79 0.59 - 1.04 mg/dL 05/02/2023 10:02 AM CDT DTL Estimated GFR (eGFR) 80 >=60 mL/min/BSA 05/02/2023 10:02 AM CDT DTL Comment: Estimated GFR calculated using the 2020 CKD_EPI creatinine equation. Blood (Blood, Venous) 05/02/2023 9:09 AM CDT 05/02/2023 9:44 AM CDT Abril Nash P.A.-C. LAB BLOOD ADD- ON [facility] [place] 200 [place] [address], [facility] DTL [facility] 200 [place] [address] documented in this encounter Visit Diagnoses Diagnosis Mass Mediastinal Mass Mediastinal documented in this encounter Care Teams Flow Specialist Relationship Specialty Start Date End Date Elsewhere, Pcp PCP - General Family Medicine 01/03/18 documented as of this encounter
--- OUTSIDE RECORDS SUMMARY | 2023-09-14 20:52 | XMS_ITS | Encounter Summary ---
Author Name Unknown Organization [facility] Address [address] [place] [address] Care Team Providers Care Bookkeeping Clerks Supervisor Name Role Phone Elsewhere, Pcp Primary Care Provider Unavailabl e Reason for Visit * Reason Onset Date Comments medication refill 10/22/2022 Encounter Details Date Type Department Care Team (Latest Contact Info) Description 10/22/2022 Clinical Communication Department of Cardiovascular Surgery in [place], [place] [address] [place] [phone] Rosaura Claudio M.D., Ph.D. [address] [place] [phone] medication refill Social History Tobacco Use Types [...] How often do you attend chur or quaker services? Never 06/04/2022 Do you belong to any clubs o r organizations such as methodist groups, unions, fraternal or athletic groups, or [...] care, and heating? Not very hard 06/04/2022 [facility] [place] of Occupat ional Health - Occupational Stress [...] place to sleep or slept in a longterm (including now)? No 06/04/2022 Nutrition Answer Date [...] Master's degree (e.g., MA, MS, Milly, MEd, HOG SCALDER, MADELYN) 06/04/2022 Sex and Gender Information Value [...] will not go through. Sent portal message. RACT SEARCHER * Telephone Encounter - Arlette Khan - 10/22/2022 3:15 PM CST Patient is requesting Lyrica refill sent to [facility] in [place]. RACT SEARCHER documented in this encounter Plan of Treatment Upcoming Encounters Date Type Department Care Team (Late st Contact Info) Description 11/11/2023 10:40 AM CDT Appointment Department of Laboratory Medicine and Pathology, [facility] in [place], [place] [address] [place] [phone] Radha Keen APRN, C.N.P., M.S.N. [address] [place] [phone] 11/11/2023 11:15 AM CDT Appointment Department of Radiology, [facility] in [place], [place] [address] [place] [phone] Radha Keen APRN, Sandip.N.P., M.S.N. [address] [place] [phone] 11/11/2023 1:00 PM CDT Office Visit Division of Thoracic Surgery in [place], [place] [address] [place] [phone] Radha Keen APRN, C.N.P., M.S.N. [address] [place] [phone] documented as of this encounter Visit Diagnoses Not on filedocumented in this encounter Care Teams Bookkeeping Clerks Supervisor Relationship Specialty Start Date End Date Elsewhere, Pcp PCP - General Family Medicine 01/03/18 documented as of this encounter
--- OUTSIDE RECORDS SUMMARY | 2023-09-14 20:52 | XMS_ITS ---
Author Name Unknown Organization [facility] Address [address] [place] [address] Care Team Providers Care Coal Trimmer Name Role Phone Unavailable Unavailable Unavailable Surgery Details Not on file Complications Check Surgery Details section. Procedure Estimated Blood Loss Check Surgery Details section. Procedure Findings Check Surgery Details section. Procedure Specimens Taken Check Surgery Details section.
--- OUTSIDE RECORDS SUMMARY | 2023-09-14 20:53 | XMS_ITS | Data Portability ---
Author Name Unknown Address [address] [place] [address] Phone [phone] Organization [place] [facility] [place] [facility] Address [facility] [address] [place] [address] Care Team Providers Care Welding Robot Operator Name Role Phone BRUCE FORREST Primary Care Provider FLORA KEMP Referring Provider [phone] NIKO CRISOSTOMO Primary Care Provider Assessment No assessment recorded. Plan of Treatment Reminders Order Date Submit Date Provider Last Modified By Organization Details Last Modified Time Details Appointments None recorded. Lab None recorded. Referral None recorded. Procedures None recorded. Surgeries None recorded. Imaging None recorded. Medication Orders triamcinolo ne acetonide 0.1 % dental paste [address] [facility] [address] [facility], [facility] [address], [address], 15:33:29 dexamethaso ne 0.5 mg/5 mL oral elixir 2022 023 [facility] [address] [facility] [employer], [address] [facility] [place], [address], 15:33:28 Patient TargetsNo targets recorded. Patient Instructions Encounter Date Encounter Id Patient Instructions Last Modified By Organization Details Last Modified Time 01/16/2023 [id number] canker sore: car e instructions jbarss Not [...] subsides. I also recommended she see a Dog Track Kennel Manager for an evaluation. She knows to reach [...] Time procedure on lung completed [facility] 01/16/2023 14:30:06 Imaging Results None recorded. Procedure Notes None recorded. Medical Equipment None Reported. Allergies Allergen ID Allergen Name Allergen Category Reaction Reaction Severity Criticality Documentation Date Start Date Code Code System Note Provider Name and Address Organization Details Recorded Time 86129 Medicinal product containin g penicilli n and acting as antibacte rial agent (product) medicatio n Not available Not available Not available 01/16/2023 06667 05 SNOMED NEDA [facility] 14:38:42 76655 Substance with sulfonami de structure and antibacte rial mechanism of action (substanc e) medicatio n Not available Not available Not available 01/16/2023 22533 8003 SNOMED Rea Pace audrey [facility] 14:38:49 Medications [...] 118 mm[Hg] 63 mm[Hg] Rea venturaNEDA - [facility] 01/16/2023 14:37:47 Social History Question Answer Notes LastModified by Organizat ion Details LastModified Time Tobacco Smoking Status Never Smoker Rea ventura [facility] 01/16/2023 14:41:43 [...] N Premenstrual syndrome (PMS) N MRSA N Emphysema N Head Trauma/Injury N Irritable bowel syndrome N Glaucoma N Lung Disease N COPD N Depression Y Hypothyroidism N Pneumonia Y Pacemaker N Orthopedic Problems N [...] Meningitis N Pancreatic disease N Heart Attack ([place]) N Stomach Ulcers N Back pain Y [...] Encounter Start Date Encounter Closed Date Diagnosis/Indication [id number] Helena Villalta DDS [address] [place] [address] 01/16/2023 14:17:38 01/16/2023 15:33:21 Aphthous ulcer of [...] AFTER 19 (MEDICARE REPLACEMENT/ ADVANTAGE - HMO) [id number] Alexia Phillips [id number] Alexia Phillips Notes Date Note Type Note [...] jul 2023. Helena Villalta DDS [address] [facility] [address], [place], [address], [facility] 01/16/2023 22:21:14 OBGyn Episode No OBEpisode recorded.
--- OUTSIDE RECORDS SUMMARY | 2023-09-14 20:53 | XMS_ITS | Clinical Summary ---
Author Name Unknown Organization [email or web address] [employer] [facility] Address [place], [place] [address] Care Team Providers Care Optical Store Manager Name Role Phone Chitra Bruno MD Primary [...] Department Care Team Description 07/31/2023 Lab Requisition [facility] [phone] Aury Estevez MD from Last 3 Months [...] Comments Blood Pressure 118/78 09/28/2010 2:38 PM FERMENTING CELLARS SUPERVISOR Pulse 71 09/28/2010 2:38 PM FERMENTING CELLARS SUPERVISOR Temperature - - Respiratory Rate - - Oxygen Saturation - - Inhaled Oxygen Concentration - - Weight 85.2 kg (187 lb 12.8 oz) 09/28/2010 2:38 PM FERMENTING CELLARS SUPERVISOR Height 174 cm (5' 8.5) 09/05/2010 3:52 PM FERMENTING CELLARS SUPERVISOR Body Mass Index 28.14 09/05/2010 3:52 PM FERMENTING CELLARS SUPERVISOR Plan of Treatment Health Maintenance Due [...] TRACKING EVENT Routine 07/31/2023 11 :30 AM FERMENTING CELLARS SUPERVISOR PATH BREAST CORE BIOPSY Routine 07/31/2023 11:30 AM FERMENTING CELLARS SUPERVISOR from Last 3 Months Results * LAB TRACKING EVENT (07/31/2023 11:30 AM FERMENTING CELLARS SUPERVISOR) Other (Other) Client Collect / Unknown 07/31/2023 11:30 AM FERMENTING CELLARS SUPERVISOR 07/31/2023 8:50 PM FERMENTING CELLARS SUPERVISOR Aury Estevez MD LAB BILL ONLY [facility] [address] [place] [address], * PATH BREAST CORE BIOPSY (07/31/2023 11:30 AM FERMENTING CELLARS SUPERVISOR) Case Report Pathology Report ?Case: [id number] ? Authorizing Provider: ??Aury Estevez MD ??Collected: ? 07/31/2023 1130 ? Ordering Location: ? [facility] ?Received: ?07/31/20232055 ? Pathologist: ? Dale Helton MD ? Specimen: ?Right Breast Core Ultrasound Biopsy ? 08/01/2023 10:26 AM FERMENTING CELLARS SUPERVISOR [facility] Final Diagnosis A) RIGHT BREAST, 9:00, 1 CM FROM NIPPLE, ULTRASOUND-GUID ED CORE BIOPSY: 1. Nodular densely fibrous breast stroma and dilated ducts 2. Negative for atypia and malignancy 08/01/2023 10:26 AM FERMENTING CELLARS SUPERVISOR [facility] Comment A) This is an image-guided breast biopsy. The pathologic findings should be correlated with radiologic and clinical findings prior to treatment decisions. Case seen in consultation with Dr. Andres. 08/01/2023 10:[address] [facility] Clinical Information RIGHT breast lobulated, indistinct, hypoechoic, solid mass at 9:00, 1 cm from the nipple measuring 2.4 cm 08/01/2023 10:[address] [facility] Gross Description A) Label: Patient's name [...] 72 hours. TLF 07/31/2023 08/01/2023 10:[address] [facility] Microscopic Description The final diagnosis is based on microscopic examination of appropriate sections of all specimens. A) The presence of blue ink is confirmed on tissue sections. 08/01/2023 10:[address] [facility] Additional Information Interpreted at [facility] - [address] [facility] [address], [place] [address] 08/01/2023 10:[address] [facility] Other (Right Breast Core Ultrasound Biopsy) 07/31/2023 11:30 AM FERMENTING CELLARS SUPERVISOR 07/31/2023 8:56 PM FERMENTING CELLARS SUPERVISOR Aury Estevez MD PATHOLOGY/CYTOLO GY [facility] [address] [place] [address], from Last 3 Months Care Teams Optical Store Manager Relationship Specialty Start Date End Date Chitra Bruno MD [address] [place] [address] PCP - General Family Practice 08/29/10
--- OUTSIDE RECORDS SUMMARY | 2023-09-14 20:53 | XMS_ITS | Encounter Summary ---
Author Name Unknown Organization [facility] Address [address] [place] [address] Care Team Providers Care Anatomic Pathology Manager Name Role Phone Elsewhere, Pcp Primary Care Provider Unavailabl e Reason for Visit * Reason Comments Med Refill Encounter Details Date Type Department Care Team (Late st Contact Info) Description 09/20/2022 Clinical Communication Division of Thoracic Surgery in [place], [place] [address] [place] [phone] Rosaura Claudio M.D., Ph.D. [address] [place] [address] Med Refill Social History Tobacco Use Types [...] How often do you attend chur or church services? Never 06/04/2022 Do you belong to any clubs o r organizations such as evangelical groups, unions, fraternal or athletic groups, or [...] care, and heating? Not very hard 06/04/2022 [facility] Occupat ional Health - Occupational Stress [...] Master's degree (e.g., MA, MS, Milly, MEd, PROGRESSIVE CARE MANAGER, MADELYN) 06/04/2022 Sex and Gender Information [...] pharmacy and portal message sent to patient. MAN * Addendum Note - Suly Mansfield APRN, C.N.P. - 09/24/2022 4:50 PM YARN MAN Addended by: SULY MANSFIELD on: 09/24/2022 04:50 PM Modules accepted: Orders MAN * Telephone Encounter - Arlette Khan - 09/24/2022 3:03 PM CST Pat called back and is interested in trying gabapentin but she has some ?s and would like to talk with you. MAN * Telephone Encounter - Suly Mansfield APRN, [...] the pain clinic for consideration of injection. MAN * Telephone Encounter - BillNickierios Mcnair - 09/20/2022 4:04 PM CST Patient is still having breakthrough pain alternating Tylenol and ibuprofen every 6 hours. She is wanting to discuss pain issues, what she can do to lessen the pain, and also requesting some pain medication. MAN documented in this encounter Plan of Treatment Upcoming Encounters Date Type Department Care Team (Late st Contact Info) Description 11/11/2023 10:40 AM CDT Appointment Department of Laboratory Medicine and Pathology, [facility] in [place], [place] [address] [place] [phone] Suly Mansfield APRN, C.N.P., M.S.N. [address] [place] [phone] 11/11/2023 11:15 AM CDT Appointment Department of Radiology, [facility] in [place], [place] [address] [place] [phone] Suly Mansfield APRN, Sandip.N.P., M.S.N. [address] [place] [phone] 11/11/2023 1:00 PM CDT Office Visit Division of Thoracic Surgery in [place], [place] [address] [place] [phone] Suly Mansfield APRN, C.N.P., M.S.N. [address] [place] [phone] documented as of this encounter Visit Diagnoses Not on filedocumented in this encounter Care Teams Anatomic Pathology Manager Relationship Specialty Start Date End Date Elsewhere, Pcp PCP - General Family Medicine 01/03/18 documented as of this encounter
[2023-09-14 21:01] LABS: HCO3 VBG 31 mmol/L (21-28); PCO2 VBG 48 mmHG (40-50); PO2 VBG 23.9 mmHG (25-47); pH VBG 7.422 (7.32-7.43)
[2023-09-14 21:03] LABS: Basophils Absolute Auto 0.01 K/uL (0.00-0.30); Basophils Percent Auto 0.1 % (0.0-3.0); Hematocrit 38.3 % (33.0-51.0); Hemoglobin* 12.5 gm/dL (12.0-16.0); Immature Granulocytes Abs Auto 0.02 K/uL (0.00-0.30); Immature Granulocytes Pct Auto 0.2 %; Lymphocytes Percent Auto 4.8 % (20-44); Mean Corpuscular HGB Conc 33 gm/dL (32-36); Mean Corpuscular Hemoglobin 29 pg (26-34); Mean Corpuscular Volume 88 fL (80-100); Monocytes Percent Auto 5.3 % (0.0-11.0); Neutrophils Percent Auto 89.6 % (42.0-72.0); Platelet Count* 438 K/uL (140-440); RDW Coefficient of Variation % 14.2 % (11.5-15.5); Red Blood Count 4.34 m/uL (4.00-5.20); White Blood Count* 8.05 K/uL (4.50-11.00)
[2023-09-14 21:13] LABS: Slide Review Reflex No
[2023-09-14 21:15] LABS: Lactate* 0.9 mmol/L (0.5-1.9)
[2023-09-14 21:24] LABS: SARS Antigen* POSITIVE (Negative)
[2023-09-14 21:30] LABS: Albumin* 4.1 g/dL (3.3-5.0); Chloride* 96 mmol/L (96-114)
[2023-09-14 21:31] LABS: Potassium* 4.1 mmol/L (3.6-5.1); Sodium* 135 mmol/L (135-149)
[2023-09-14 21:33] LABS: Anion Gap 9 mEq/L (7-15); Aspartate Amino Transferase* 44 U/L (12-35); Bilirubin Total* 0.4 mg/dL (0.1-1.5); Carbon Dioxide* 30 mmol/L (20-32); Creatinine* 0.5 mg/dL (0.5-1.5); Est. Creatinine Clearance* 52.05; Estimated Glomerular Filt Rate 100 ml/min; Total Protein* 6.6 g/dL (6.0-8.3)
[2023-09-14 21:34] LABS: Alanine Aminotransferase* 38 U/L (4-35); Alkaline Phosphatase* 87 U/L (40-150); Blood Urea Nitrogen* 16 mg/dL (7-30); Calcium* 9.2 mg/dL (8.4-10.6); Glucose* 129 mg/dL (60-115)
[2023-09-14 21:36] LABS: C Reactive Protein* 8.4 mg/dL (0.5-1.0)
[2023-09-14 21:49] LABS: PCR FLU A Negative PCR FLU A (Negative); PCR FLU B Negative PCR FLU B (Negative); PCR RSV Negative PCR RSV (Negative); SARS PCR* POSITIVE SARS-CoV-2 (Negative)
[2023-09-14 21:52] VITALS: O2SAT 93
[2023-09-14 22:26] LABS: Appearance Urine Clear (Clear); Bilirubin Urine Negative (Negative); Blood Urine Trace-lysed (Negative); Color Urine Yellow (Yellow); Glucose Urine Negative (Negative); Ketones Urine Negative (Negative); Leukocyte Esterase Urine Negative (Negative); Nitrite Urine Negative (Negative); Protein Urine Negative (Negative); Urobilinogen Urine 0.2 (0.2-1.0)
[2023-09-14 22:29] VITALS: O2SAT 93
[2023-09-14 22:30] VITALS: O2SAT 91
[2023-09-14 22:37] LABS: RBC Urine 0-2 (0-2); WBC Urine 0-2 (0-5)
[2023-09-14 22:39] LABS: Legionella pneumo Ag Urine L. pneumo Negative (Negative); S pneumo Ag Urine S. pneumo Negative (Negative)
[2023-09-14 22:45] VITALS: PULSE 91; O2SAT 91
== END 2023-09-15 00:19 | disposition home or self-care (01) ==
PROVIDERS: Emergency Provider Family Medicine; PCP Family Medicine
DX: J18.9 Pneumonia, unspecified organism (principal); R09.02 Hypoxemia; R53.81 Other malaise; K12.1 Other forms of stomatitis; F41.9 Anxiety disorder, unspecified
CPT/HCPCS: 36415; 71046; 80048; 80076; 81001; 82803; 83605; 85025; 86140; 87040; 87426; 87449; 87631; 87899; 94761; 96374; 99284; 99285; J2060

== ENCOUNTER 2023-09-17 15:12 | Inpatient (IN) | payer MEDICARE, SELFPAY ==
[2023-09-17] VITALS (23 sets, daily range): BP systolic 115–168; BP diastolic 57–73; PULSE 81–110; RESP 18; TEMP 37.6–38.1; O2SAT 91–99; BMI 22.0
--- NOTE | 2023-09-17 16:57 | CRLHL7_ITS ---
For Patients: As a result of the Century Cures Act, medical imaging exams and procedure reports are released immediately into your electronic medical record. You may view this report before your referring provider. If you have questions, please contact your health care provider. INDICATION: Hypoxia. TECHNIQUE: CT chest PE was acquired with 95 cc Isovue 370 IV contrast. COMPARISON: September 04, 2023. FINDINGS: Heart and vasculature: Contrast opacification of the pulmonary arterial tree is adequate. No sign of pulmonary embolism. Heart size is normal. Thoracic aorta and pulmonary artery are normal in caliber. Lungs and pleura: Worsening multifocal basilar predominant ground-glass consolidations. No pleural effusions, pleural thickening, or pneumothorax. Lymph nodes/mediastinum: No mediastinal, hilar, or axillary adenopathy. Chest wall: No masses. Upper abdomen: No acute or significant findings. Bones: Unremarkable for age. IMPRESSION: No pulmonary embolism. Worsening multifocal pneumonia. Please note that all CT scans at this facility use dose modulation, iterative reconstruction, and/or weight-based dosing when appropriate to reduce radiation dose to as low as reasonably achievable. Dictated by Vineet Ellsworth MD @ 09/17/2023 6:02:49 PM (Electronically Signed)
--- NOTE | 2023-09-17 17:00 | ED_ITS ---
HPI - SOB/Dyspnea General Chief Complaint: Shortness of Breath/Dyspnea Stated Complaint: Shortness of breath Time Seen by Provider: 09/17/23 16:32 History of Present Illness HPI Narrative: This 73-year-old female went in to clinic today and was sent here because of hypoxia. There was no testing or workup that was done in the clinic. The patient has been fighting infection for the past 4-6 weeks. 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 The patient comes in today and is noted to have hypoxia with oximetry at 88-89% at rest and down to 70% with getting up to the bathroom. She also has a fever at 100.6? F. The patient states she feels okay to go home if she only had oxygen. She does not report any chest pain. Related Data Home Medications Medication Instructions Recorded Confirmed acetaminophen 500 mg tablet 1,000 mg PO Q6H PRN 03/14/22 09/17/23 ascorbic acid (vitamin C) 1,000 mg 1 g PO DAILY 03/14/22 09/17/23 tablet cholecalciferol (vitamin D3) 50 2,000 unit PO DAILY 03/14/22 09/17/23 mcg (2,000 unit) capsule cyanocobalamin (vitamin B-12) 1,000 mcg PO QWEEK 03/14/22 09/17/23 1,000 mcg tablet multivitamin with minerals-ferrous 1 tab PO DAILY 03/14/22 09/17/23 sulfate 4.5 mg iron tablet (One Daily Multivitamins with Minerals) glucosamine chondroi 2 tab PO DAILY 01/01/23 09/17/23 Previous Rx's Medication Instructions Recorded iron,carbonyl 65 mg-vitamin C 125 1 tab PO QHS #90 tabs 05/08/23 mg tablet,delayed release (Vitron-C) estradiol 1 mg tablet 1 mg PO QDAY 1 month #30 tabs 06/25/23 omeprazole 20 mg capsule,delayed 20 mg PO QDAY #90 caps 08/22/23 release Lactobacillus acidophilus 0.5 mg 1,000 mmu cells PO TIDWM #90 tabs 09/08/23 (100 million cell) tablet prednisone 5 mg tablet 5 mg PO DAILY #4 tabs 09/08/23 Magic Mouthwash 10 ml PO QID PRN #120 mL 09/14/23 (Lidocaine/Benadryl/Maalox) 120 mL suspension albuterol sulfate 90 mcg/actuation 2 puff inhalation QID PRN #6.7 09/14/23 aerosol inhaler grams Allergies Allergy/AdvReac Type Severity Reaction Status Date / Time penicillin V Allergy Mild Rash Verified 09/17/23 17:31 Sulfa (Sulfonamide Allergy Mild Verified 09/17/23 17:31 Antibiotics) Review of Systems Status of ROS: Reports: 10 or more systems reviewed and unremarkable except as noted in History and below Narrative: Constitutional: No weight gain or loss. Eyes: No discharge. No vision changes. HENT: No sore throat, no ear pain. She has nasal congestion. Cardiovascular: No chest pain, no palpitations. Respiratory: Shortness of breath at rest and with activity. Gastrointestinal: No abdominal pain, no vomiting, no diarrhea. Genitourinary: No dysuria, no hematuria. Musculoskeletal: Normal range of motion. Skin: No rashes, no pruritis. Neurological: No dizziness, weakness, sensory change, speech change. Endo/Heme/Allergies: No bruising or bleeding. No polydipsia. Pysch: no suicidality, no anxiety, no insomnia. All other systems reviewed and are negative. 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) Hot flashes due to menopause ?N95.1 - Menopausal and female climacteric states (ICD-10) Osteoporosis ?M81.0 - Age-related osteoporosis without current pathological fracture (ICD- 10) Osteopenia (2018) ?M85.80 - Other specified disorders of bone density and structure, unspecified site (ICD-10) Left shoulder pain ?M25.512 - Pain in left shoulder (ICD-10) History of in vitro fertilization ?Z98.890 - Other specified postprocedural states (ICD-10) History of fracture of wrist (08/2017) ?Z87.81 - Personal history of (healed) traumatic fracture (ICD-10) Surgical History 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) ?Z90.89 - Acquired absence of other organs (ICD-10) History of total abdominal hysterectomy and bilateral salpingo-oophorectomy (2002) ?Z90.710 - Acquired absence of both cervix and uterus (ICD-10) ?Z90.722 - Acquired absence of ovaries, bilateral (ICD-10) ?Z90.79 - Acquired absence of other genital organ(s) (ICD-10) History of surgery on wrist (~2017) ?Z98.890 - Other specified postprocedural states (ICD-10) History of colonoscopy (2018) ?Z98.890 - Other specified postprocedural states (ICD-10) History of bilateral cataract extraction (2018) ?Z98.41 - Cataract extraction status, right eye (ICD-10) ?Z98.42 - Cataract extraction status, left eye (ICD-10) Family History Ovarian cancer Mother, Onset Age: 65 Bladder cancer Father, Onset Age: 60 Coronary artery disease Paternal Grandfather High blood pressure Father Thyroid disease Sister Social History Narrative: exercises regularly- 3-4/week gym, weights, cardio non-smoker rarely consumes alcohol lives in lives with 25 yo adopted Aspergers son Her sister Rea Purcell from [place] is healthcare power of real estate associate attorney. Code status is full What is your current living situation?: I presently have a place to live Problems where you live: no known problems Problems where you live details: N/A In the past 12 months, utilities in danger of being shut off: no In past 12 months, lack of transportation kept you from medical appts, meetings, work, or getting things needed for daily living: no In the past 12 mos, have been you worried that your food would run out before you had money to buy more?: never true In the past 12 mos, the food you bought just didn't last and you didn't have money to buy more?: never true Highest level of school completed/degree received: Master's degree Smoking Status: Never smoker Do you use any of these nicotine containing products: None Second hand tobacco smoke exposure: No How often do you have a drink containing alcohol: never How often do you have six or more drinks on one occasion: Never AUDIT-C Alcohol total score: 0 Non-prescribed substance use: denies use Caffeine: Yes (Occasional coffee) How often does anyone, including family, friends and others, physically hurt you : never How often does anyone, including family, friends and others, insult or talk down to you: never How often does anyone, including family, friends and others, threaten you with harm: never How often does anyone, including family, friends and others, scream or curse at you: never Little interest or pleasure in doing things: not at all Feeling down, depressed, or hopeless: not at all service: No Exam Narrative: Exam Narrative: Constitutional: Well-developed, well-nourished, no acute distress. HEENT: Normocephalic, atraumatic. Neck: Normal range of motion. Nontender. Supple. Heart: Regular. No murmurs. Borderline tachycardia.Intact distal pulses. Lungs: Clear to auscultation. Tachypnea. No use of accessory muscles for breathing. No chest discomfort. No wheezes, rhonchi, or rales. Abdomen: Normal bowel sounds. Nontender. No rebound tenderness. Genitalia: Deferred. Back: No midline tenderness. Normal range of motion. Extremities: Normal range of motion. No injury. Skin: Intact. No rash. Warm. No erythema or pallor. Neurologic: No altered sensation. No weakness. Alert and oriented. Psychiatric: No suicidality. No anxiety or depression. No insomnia. Nursing notes and vitals signs are reviewed. Const: Vital Signs, click to edit/add: Vital Signs - 24 hr 09/17/23 15:21 09/17/23 17:36 09/17/23 18:00 Temperature 100.6 F H Pulse Rate 110 H 93 Pulse Rate [Right Pulse Oximeter] 100 Respiratory Rate 18 Blood Pressure 168/72 H Blood Pressure [Ri ght Upper Arm] 161/73 H Pulse Oximetry 91 92 98 Oxygen Delivery Me thod Room Air Nasal Cannula Oxygen Flow Rate 2 09/17/23 18:05 09/17/23 18:06 09/17/23 19:00 Temperature Pulse Rate 93 92 98 Pulse Rate [Right Pulse Oximeter] Respiratory Rate Blood Pressure Blood Pressure [Ri ght Upper Arm] Pulse Oximetry 97 96 92 Oxygen Delivery Me thod Oxygen Flow Rate 09/17/23 19:03 09/17/23 19:04 09/17/23 19:30 Temperature 99.6 F Pulse Rate 95 95 89 Pulse Rate [Right Pulse Oximeter] Respiratory Rate Blood Pressure 117/57 L Blood Pressure [Ri ght Upper Arm] Pulse Oximetry 96 94 96 Oxygen Delivery Me thod Nasal Cannula Nasal Cannula Oxygen Flow Rate 2 2 09/17/23 19:31 09/17/23 20:00 09/17/23 20:01 Temperature Pulse Rate 88 87 86 Pulse Rate [Right Pulse Oximeter] Respiratory Rate Blood Pressure 120/58 L 115/62 Blood Pressure [Ri ght Upper Arm] Pulse Oximetry 96 96 96 Oxygen Delivery Me thod Nasal Cannula Nasal Cannula Nasal Cannula Oxygen Flow Rate 2 2 2 09/17/23 20:02 09/17/23 20:30 09/17/23 20:35 Temperature Pulse Rate 86 88 85 Pulse Rate [Right Pulse Oximeter] Respiratory Rate Blood Pressure Blood Pressure [Ri ght Upper Arm] Pulse Oximetry 96 95 96 Oxygen Delivery Me thod Nasal Cannula Nasal Cannula Nasal Cannula Oxygen Flow Rate 2 2 2 09/17/23 21:00 09/17/23 21:36 09/17/23 22:00 Temperature Pulse Rate 83 83 84 Pulse Rate [Right Pulse Oximeter] Respiratory Rate Blood Pressure Blood Pressure [Ri ght Upper Arm] Pulse Oximetry 98 96 99 Oxygen Delivery Me thod Nasal Cannula Nasal Cannula Nasal Cannula Oxygen Flow Rate 2 2 2 09/17/23 22:04 09/17/23 22:35 09/17/23 23:17 Temperature Pulse Rate 83 81 83 Pulse Rate [Right Pulse Oximeter] Respiratory Rate Blood Pressure Blood Pressure [Ri ght Upper Arm] Pulse Oximetry 98 97 99 Oxygen Delivery Me thod Nasal Cannula Nasal Cannula Nasal Cannula Oxygen Flow Rate 2 2 2 09/17/23 23:43 09/17/23 23:44 Temperature Pulse Rate 81 Pulse Rate [Right Pulse Oximeter] Respiratory Rate Blood Pressure 139/61 Blood Pressure [Ri ght Upper Arm] Pulse Oximetry 96 Oxygen Delivery Me thod Nasal Cannula Nasal Cannula Oxygen Flow Rate 2 2 Course Vital Signs Vital signs: Initial Vital Signs Temperature 100.6 F H 09/17/23 15:21 Temperature Source Temporal Artery Scan 09/17/23 15:21 Pulse Rate 100 09/17/23 15:21 Respiratory Rate 18 09/17/23 15:21 Blood Pressure 161/73 H 09/17/23 15:21 Blood Pressure Mean 102 09/17/23 15:21 Blood Pressure Position Sitting 09/17/23 15:21 Pulse Oximetry 91 09/17/23 15:21 Oxygen Delivery Method Room Air 09/17/23 15:21 Vital Signs Temperature 100.6 F H 09/17/23 15:21 Pulse Rate 100 09/17/23 15:21 Respiratory Rate 18 09/17/23 15:21 Blood Pressure 161/73 H 09/17/23 15:21 Pulse Oximetry 91 09/17/23 15:21 Oxygen Delivery Method Room Air 09/17/23 15:21 Temperature 99.6 F 09/17/23 19:03 Pulse Rate 81 09/17/23 23:43 Respiratory Rate 18 09/17/23 15:21 Blood Pressure 139/61 09/17/23 23:44 Pulse Oximetry 96 09/17/23 23:43 Oxygen Delivery Method Nasal Cannula 09/17/23 23:44 Oxygen Flow Rate 2 09/17/23 23:44 Medications Administered Medications: Discontinued Medications Generic Name Dose Route Start Last Admin Trade Name Beto PRN Reason Stop Dose Admin Acetaminophen 1,000 mg 09/17/23 17:30 09/17/23 17:43 Acetaminophen 500 Mg Tablet PO 09/17/23 17:31 1,000 mg ONCE ONE Administration Acetaminophen 1,000 mg 09/17/23 22:01 09/17/23 22:26 Acetaminophen 500 Mg Tablet PO 09/17/23 22:02 1,000 mg ONCE ONE Administration Docusate Sodium 200 mg 09/17/23 22:02 09/17/23 22:31 Docusate Sodium 100 Mg Capsule PO 09/17/23 22:03 200 mg ONCE ONE Administration MDM - SOB/Dyspnea MDM Narrative Medical decision making narrative: This patient comes in with fever and hypoxia. She just finished Levaquin a couple days ago and symptoms have worsened since then. She went to clinic and was sent here for further evaluation and treatment. An IV was established and labs are acquired. CT imaging with IV contrast is obtained and is negative for pulmonary embolism but shows worsening pneumonia. The patient has oximetry at 88 89% on room air and with 2 L nasal cannula oxygen she is maintaining sufficient oximetry at around 95%. She got up to the bathroom and desaturated to 70%. The patient did receive Tylenol for a fever. She was positive for COVID last week and the antigen test was done today which returns positive. Her C reactive protein is elevated at 8.2. Her lactate level returns normal at 1.2. I spoke with the hospitalist retail seasonal specialist, Dr. Hernandez, who stated that she felt that we could not be of further diagnostic or treatment assistance for her here and recommended that she go elsewhere for services of a overlock sewing machine operator or infectious disease. Attempts were made to transfer her to all surrounding hospitals and none had beds available. She is on a waiting list at [facility] and her preference is to go to [place]. [place] is been on divert today but we were instructed to call back 1st thing in the morning. Care for this patient is transferred to Dr. Rdz. Lab Data Labs: Lab Results 09/17/23 09/17/23 09/17/23 Range/Units 16:55 16:55 17:10 WBC 10.08 (4.50-11.00) K/uL RBC 4.33 (4.00-5.20) m/uL Hgb 12.4 (12.0-16.0) gm/dL Hct 38.2 (33.0-51.0) % MCV 88 (80-100) fL MCH 29 (26-34) pg MCHC 33 (32-36) gm/dL RDW Coeff of Mariana 14.4 (11.5-15.5) % Plt Count 417 (140-440) K/uL Neut % (Auto) 89.8 H (42.0-72.0) % Lymph % (Auto) 3.6 L (20-44) % Isabella % (Auto) 6.3 (0.0-11.0) % Eos % (Auto) 0.0 (0.0-7.0) % Baso % (Auto) 0.1 (0.0-3.0) % Neut # (Auto) 9.10 H (1.7-7.0) K/uL Lymph # (Auto) 0.40 L (0.90-2.90) K/uL Isabella # (Auto) 0.60 (0.00-0.90) K/UL Eos # (Auto) 0.00 (0.00-0.50) K/uL Baso # (Auto) 0.01 (0.00-0.30) K/uL Abs Immat Gran (auto) 0.02 (0.00-0.30) K/uL Imm/Tot Granulo (auto) 0.2 % D-Dimer Quant (PE/DVT) 1.32 H (0.00-0.50) ug/ml Sodium 132 L (135-149) mmol/L Potassium 4.2 (3.6-5.1) mmol/L Chloride 95 L (96-114) mmol/L Carbon Dioxide 28 (20-32) mmol/L Anion Gap 9 (7-15) mEq/L BUN 12 (7-30) mg/dL Creatinine 0.5 (0.5-1.5) mg/dL Estimated Creat Clear 52.05 Estimated GFR 100 ml/min Glucose 117 H (60-115) mg/dL Lactate 1.2 (0.5-1.9) mmol/L Calcium 9.2 (8.4-10.6) mg/dL C-Reactive Protein 8.2 H (0.5-1.0) mg/dL NT-Pro-B Natriuret Pep 167 Cancelled pg/mL SARS-CoV-2 Ag (Rapid) POSITIVE A (Negative) Imaging Data CT scan - chest: Radiologist's impression: No pulmonary embolism. Worsening multifocal pneumonia. ECG Data Attestation: I personally reviewed and interpreted this ECG as follows: Interpretation: Sinus tachycardia. Rate is 105 beats per minute. There are no specific ST or T-wave abnormalities. Discharge Plan Discharge Clinical Impression: Pneumonia Prescriptions: No Action cholecalciferol (vitamin D3) 50 mcg (2,000 unit) capsule 2,000 unit PO DAILY Rx Instructions: MWF during the summer, daily during the winter. acetaminophen 500 mg tablet 1,000 mg PO Q6H PRN Rx Instructions: NO MORE THAN 4000 MG/DAY cyanocobalamin (vitamin B-12) 1,000 mcg tablet 1,000 mcg PO QWEEK ascorbic acid (vitamin C) 1,000 mg tablet 1 g PO DAILY One Daily Multi-Vit w-Mineral 4.5 mg iron tablet 1 tab PO DAILY glucosamine chondroi 2 tab PO DAILY Vitron-C 65 mg iron- 125 mg tablet,delayed release (DR/EC) 1 tab PO QHS Qty: 90 0RF Lactobacillus acidophilus 0.5 mg (100 million cell) Tablet 1,000 mmu cells PO TIDWM Qty: 90 0RF prednisone 5 mg tablet 5 mg PO DAILY Qty: 4 0RF Rx Instructions: take daily for four days after the 20mg bottle Magic Mouthwash (Lidocaine/Benadryl/Maalox) 120 mL suspension 10 ml PO QID PRNQty: 120 1RF Rx Instructions: Lidocaine Viscous 2 % mucosal solution 40 mL; Maalox 200 mg-200 mg-20 mg/5 mL oral suspension 40 mL; Benadryl 12.5 mg/5 mL oral elixir 40 mL; Per 120 mL SWISH AND SPIT. MAY COMPOUND IF FIRST PRODUCT IS NOT AVAILABLE. albuterol sulfate 90 mcg/actuation HFA aerosol inhaler 2 puff inhalation QID PRNQty: 6.7 1RF estradiol 1 mg tablet 1 mg PO QDAY 30 Days Qty: 30 12RF omeprazole 20 mg capsule,delayed release(DR/EC) 20 mg PO QDAY Qty: 90 0RF Follow Up/Referrals: Aury Estevez MD [Primary Care Provider] -
[2023-09-17 17:08] LABS: Lactate* 1.2 mmol/L (0.5-1.9)
--- OUTSIDE RECORDS SUMMARY | 2023-09-17 17:17 | XMS_ITS | Encounter Summary ---
Author Name Unknown Organization [facility] Address [address] [place] [address] Care Team Providers Care Art Educator Name Role Phone Elsewhere, Pcp Primary Care Provider Unavailabl e Reason for Referral * MRI/CAT/PET Scan (Routine) - Closed Specialty Diagnoses / Procedures Referred By Joe allison Referred To Contact Radiology Diagnoses Mass Mediastinal Procedures CT Chest with IV Contrast Abril Nash P.A.-C. [address] [place] [phone] [facility] Referral ID Status Reason Start Date Expiration Date Visits Re quested Visits Authorized [id number] Closed 10/30/2022 10/30/2023 1 1 Reason for Visit * MRI/CAT/PET Scan (Routine) - Closed Specialty Diagnoses / Procedures Referred By Joe allison Referred To Contact Radiology Diagnoses Mass Mediastinal Procedures CT Chest with IV Contrast Abril Nash P.A.-C. [address] [place] [phone] [facility] Referral ID Status Reason Start Date Expiration Date Visits Re quested Visits Authorized [id number] Closed 10/30/2022 10/30/2023 1 1 Encounter Details Date Type Department Care Team (Latest Contact Info) Description 05/02/2023 10:21 AM CDT - 05/02/2023 11:59 PM CDT Hospital Encounter Department of Radiology, [facility], in [place], [place] [address] [place] [address] Abril Nash P.A.-C. [address] [place] [address] Mass Mediastinal Discharge Disposition: Home or Self [...] often do you attend chur ch or alevism services? Never 06/04/2022 Do you belong to any clubs o r organizations such as roman catholic groups, unions, fraternal or athletic groups, [...] care, and heating? Not very hard 06/04/2022 [facility] [place] of Occupat ional Health - Occupational Stress [...] Master's degree (e.g., MA, MS, Milly, MEd, WET SILK HANGER, MADELYN) 06/04/2022 Sex and Gender Information Value [...] by mouth 3 (three) times a week. Nzhram-Ufdtuuzfs-Srgkhp 0 03/14/2022 documented as of this encounter Plan of Treatment Upcoming Encounters Date Type Department Care Team (Late st Contact Info) Description 11/11/2023 10:40 AM CDT Appointment Department of Laboratory Medicine and Pathology, [facility] in [place], [place] [address] [place] [address] Radha Keen APRN, C.N.P., M.S.N. [address] [place] [phone] 11/11/2023 11:15 AM CDT Appointment Department of Radiology, [facility], in [place], [place] [address] [place] [address] Radha Keen APRN, C.N.P., M.S.N. [address] [place] [phone] 11/11/2023 1:00 PM CDT Office Visit Division of Thoracic Surgery in [place], [place] [address] [place] [address] Radha Keen APRN, C.NCasandra., M.S.N. [address] [place] [phone] documented as of this encounter Procedures Procedure [...] mL documented in this encounter Care Teams Art Educator Relationship Specialty Start Date End Date Elsewhere, Pcp PCP - General Family Medicine 01/03/18 documented as of this encounter
--- OUTSIDE RECORDS SUMMARY | 2023-09-17 17:17 | XMS_ITS | Encounter Summary ---
Author Name Unknown Organization [facility] Address [address] [place] [address] Care Team Providers Care Hot Billet Shear Operator Name Role Phone Elsewhere, Pcp Primary Care Provider Unavailabl e Reason for Referral * Outpatient (Routine) - Authorized Specialty Diagnoses / Procedures Referred By Joe t Referred To Contact Thoracic Surgery Radha Keen APRN, C.N.PYesika, M.S.N. [address] [place] [phone] [facility] Referral ID Status Reason Start Date Expiration Date V isits Requested Visits Authorized [id number] Authorized 07/08/2023 07/07/2026 1 1 Scheduling Instructions With Radha Keen NP after CT scan SERVICE MECHANIC * MRI/CAT/PET Scan (Routine) - Authorized Specialty Diagnoses / Procedures Referred By Contac t Referred To Contact Radiology Diagnoses Thymoma Procedures CT Chest with IV Contrast Radha Keen APRN, C.N.PYesika, M.S.N. [address] [place] [phone] [facility] Referral ID Status Reason Start Date Expiration Date V isits Requested Visits Authorized [id number] Authorized 07/08/2023 07/07/2024 1 1 SERVICE MECHANIC Encounter Details Date Type Department Care Team (Late st Contact Info) Description 07/08/2023 Orders Only Division of Thoracic Surgery in [place], [place] [address] [place] [phone] Susan Jarrett RNazia Thymoma (Primary Dx) Social [...] often do you attend chur ch or buddhist services? Never 06/04/2022 Do you belong to [...] care, and heating? Not very hard 06/04/2022 [facility] [place] of Occupat ional Health - Occupational Stress [...] place to sleep or slept in a penitentiary (including now)? No 06/04/2022 Nutrition Answer Date [...] Master's degree (e.g., DICK, MS, Milly, MEd, REPRODUCTION SPECIALIST, MADELYN) 06/04/2022 Sex and Gender Information [...] Appointment Department of Laboratory Medicine and Pathology, [place], [place] [address] [place] [phone] Radha Keen APRN, C.N.P., M.S.N. [address] [place] [phone] 11/11/2023 11:15 AM CDT Appointment Department of Radiology, [place], [place] [address] [place] [phone] Radha Keen APRN, C.N.P., M.S.N. [address] [place] [phone] 11/11/2023 1:00 PM CDT Office Visit Division of Thoracic Surgery in [place], [place] 200 [place] [address] Radha Keen APRN, C.N.P., M.S.N. [address] [place] [phone] Scheduled Orders Name Type Priority Associated Diagnoses [...] Primary documented in this encounter Care Teams Hot Billet Shear Operator Relationship Specialty Start Date End Date Elsewhere, Pcp PCP - General Family Medicine 01/03/18 documented as of this encounter
--- OUTSIDE RECORDS SUMMARY | 2023-09-17 17:17 | XMS_ITS ---
Author Name Unknown Organization [facility] Address [address] [place] [address] Care Team Providers Care Commercial Floor Covering Installer Name Role Phone Unavailable Unavailable Unavailable Surgery Details Not on file Complications Check Surgery Details section. Procedure Estimated Blood Loss Check Surgery Details section. Procedure Findings Check Surgery Details section. Procedure Specimens Taken Check Surgery Details section.
--- OUTSIDE RECORDS SUMMARY | 2023-09-17 17:17 | XMS_ITS | Encounter Summary ---
Author Name Unknown Organization [facility] Address [address] [place] [address] Care Team Providers Care Tierce Filler Name Role Phone Elsewhere, Pcp Primary Care Provider Unavailabl e Reason for Visit * Reason Comments Med Refill Encounter Details Date Type Department Care Team (Late st Contact Info) Description 10/26/2022 Refill Division of Thoracic Surgery in [place], [place] [address] [place] [phone] Radha Keen APRN, C.N.P., M.S.N. [address] [place] [phone] Med Refill Social History Tobacco Use Types [...] How often do you attend chur or worship services? Never 06/04/2022 Do you belong to any clubs o r organizations such as rastafarian groups, unions, fraternal or athletic groups, or [...] care, and heating? Not very hard 06/04/2022 [facility] - [facility]ational Stress Questionnaire [...] Master's degree (e.g., MA, MS, Milly, MEd, NONPROFIT FINANCIAL CONTROLLER, MADELYN) 06/04/2022 Sex and Gender Information Value Date Recorded Sex Assigned at Female 06/04/2022 4:58 PM CDT Gender Identity Female 06/04/2022 4:58 PM CDT Sexual Orientation Straight 06/04/2022 4: 58 PM CDT documented as of this encounter Plan of Treatment Upcoming Encounters Date Type Department Care Team (Late st Contact Info) Description 11/11/2023 10:40 AM CDT Appointment Department of Laboratory Medicine and Pathology, [facility] in [place], [place] [address] [place] [phone] Radha Keen APRN, C.NLuz Maria, M.S.N. [address] [place] [phone] 11/11/2023 11:15 AM CDT Appointment Department of Radiology, [facility] in [place], [place] [address] [place] [address] Radha Keen APRN, C.NLuz Maria, M.S.N. [address] [place] [phone] 11/11/2023 1:00 PM CDT Office Visit Division of Thoracic Surgery in [place], [place] [address] [place] [phone] Radha Keen APRN, C.NCasandra., M.S.N. [address] [place] [phone] documented as of this encounter Visit Diagnoses Not on filedocumented in this encounter Care Teams Tierce Filler Relationship Specialty Start Date End Date Elsewhere, Pcp PCP - General Family Medicine 01/03/18 documented as of this encounter
--- OUTSIDE RECORDS SUMMARY | 2023-09-17 17:17 | XMS_ITS | Encounter Summary ---
Author Name Unknown Organization [facility] Address [address] [place] [address] Care Team Providers Care Cloth Picker Name Role Phone Elsewhere, Pcp Primary Care Provider Unavailabl e Reason for Visit * Outpatient (Routine) - Closed Specialty Diagnoses / Procedures Referred By Joe allison Referred To Contact Thoracic Surgery Abril Nash P.A.-C. [address] [place] [phone] [facility] Referral ID Status Reason Start Date Expiration Date Visits Re quested Visits Authorized [id number] Closed 10/30/2022 10/29/2025 1 1 Encounter Details Date Type Department Care Team (Late st Contact Info) Description 05/02/2023 1:00 PM CDT Office Visit Division of Thoracic Surgery in [place], [place] [address] [place] [phone] Radha Keen APRN, C.N.P., M.S.N. [address] [place] [phone] Thymoma (Primary Dx) Social History Tobacco Use [...] often do you attend chur ch or advent services? Never 06/04/2022 Do you belong to any clubs o r organizations such as baptist groups, unions, fraternal or athletic groups, or [...] care, and heating? Not very hard 06/04/2022 [facility] of Occupat ional Health - Occupational Stress [...] Master's degree (e.g., MA, MS, Milly, MEd, FACULTY PHYSICIAN, MADELYN) 06/04/2022 Sex and Gender Information [...] Appointment Department of Laboratory Medicine and Pathology, [facility] in [place], [place] [address] [place] [phone] Radha Keen APRN, C.N.P., M.S.N. [address] [place] [phone] 11/11/2023 11:15 AM CDT Appointment Department of Radiology, [place], [place] [address] [place] [phone] Radha Keen APRN, C.N.P., M.S.N. [address] [place] [phone] 11/11/2023 1:00 PM CDT Office Visit Division of Thoracic Surgery in [place], [place] [address] [place] [phone] Radha Kene APRN, C.N.P., M.S.N. [address] [place] [phone] documented as of this encounter Visit Diagnoses Diagnosis Thymoma- Primary documented in this encounter Care Teams Cloth Picker Relationship Specialty Start Date End Date Elsewhere, Pcp PCP - General Family Medicine 01/03/18 documented as of this encounter
--- OUTSIDE RECORDS SUMMARY | 2023-09-17 17:17 | XMS_ITS | Encounter Summary ---
Author Name Unknown Organization [facility] Address [address] [place] [address] Care Team Providers Care Research Assistant Professor Name Role Phone Elsewhere, Pcp Primary Care Provider Unavailabl e Reason for Visit * Reason Onset Date Comments Pre-visit Intake 05/01/2023 Encounter Details Date Type Department Care Team (Latest Contact Info) Description 05/01/2023 12:00 PM CDT Clinical Communication Virtual Review in [place], [place] 200 [place] [address] Pre-visit Intake Social History Tobacco Use Types [...] How often do you attend chur or advent services? Never 06/04/2022 Do you belong to any clubs o r organizations such as jainism groups, unions, fraternal or athletic groups, or [...] care, and heating? Not very hard 06/04/2022 [facility] of Occupat ional Health - Occupational [...] slept in a long term (including now)? No 06/04/2022 Nutrition Answer Date [...] degree (e.g., MA, MS, Milly, MEd, MEDICAL PRACTICE ASSISTANT, MADELYN) 06/04/2022 Sex and Gender Information [...] Appointment Department of Laboratory Medicine and Pathology, [facility], in [place], [place] [address] [place] [phone] Radha Keen APRN, C.N.P., M.S.N. [address] [place] [phone] 11/11/2023 11:15 AM CDT Appointment Department of Radiology, [facility], in [place], [place] [address] [place] [phone] Radha Keen APRN, C.N.P., M.S.N. [address] [place] [phone] 11/11/2023 1:00 PM CDT Office Visit Division of Thoracic Surgery in [place], [place] [address] [place] [phone] Radha Keen APRN, C.NLuz Maria, M.S.N. [address] [place] [phone] documented as of this encounter Visit Diagnoses Not on filedocumented in this encounter Care Teams Research Assistant Professor Relationship Specialty Start Date End Date Elsewhere, Pcp PCP - General Family Medicine 01/03/18 documented as of this encounter
--- OUTSIDE RECORDS SUMMARY | 2023-09-17 17:17 | XMS_ITS | Encounter Summary ---
Author Name Unknown Organization [facility] Address [address] [place] [address] Care Team Providers Care Redevelopment Manager Name Role Phone Elsewhere, Pcp Primary Care Provider Unavailabl e Encounter Details Date Type Department Care Team (Latest Contact Info) Description 05/02/2023 8:50 AM CDT - 05/02/2023 10:20 AM CDT Hospital Encounter Department of Laboratory Medicine and Pathology, [facility], in [place], [place] [address] [place] [address] Abril Nash P.A.-C. [address] [place] [phone] Mass Mediastinal Discharge Disposition: Home or Self [...] How often do you attend chur or gnosticist services? Never 06/04/2022 Do you belong to [...] care, and heating? Not very hard 06/04/2022 [facility] [place] of Occupat ional Health - Occupational Stress [...] Master's degree (e.g., MA, MS, Milly, MEd, CROSSBAR FRAME WIRER, MADELYN) 06/04/2022 Sex and Gender Information Value [...] by mouth 3 (three) times a week. Mtpxsj-Lpgxxeouz-Qmhuqj 0 03/14/2022 documented as of this encounter Plan of Treatment Upcoming Encounters Date Type Department Care Team (Late st Contact Info) Description 11/11/2023 10:40 AM CDT Appointment Department of Laboratory Medicine and Pathology, [place], [place] [address] [place] [phone] Radha Keen APRN, C.N.P., M.S.N. [address] [place] [phone] 11/11/2023 11:15 AM CDT Appointment Department of Radiology, [facility] in [place], [place] [address] [place] [phone] Radha Keen APRN, Sandip.N.P., M.S.N. [address] [place] [phone] 11/11/2023 1:00 PM CDT Office Visit Division of Thoracic Surgery in [place], [place] [address] [place] [phone] Radha Keen APRN, C.N.P., M.S.N. [address] [place] [phone] documented as of this encounter Procedures Procedure [...] Abril Nash P.A.-C. LAB BLOOD ADD- ON [facility] [address] [place] [address], [facility] D[facility] [address] [place] [address] documented in this encounter Visit Diagnoses Diagnosis Mass Mediastinal documented in this encounter Care Teams Redevelopment Manager Relationship Specialty Start Date End Date Elsewhere, Pcp PCP - General Family Medicine 01/03/18 documented as of this encounter
--- OUTSIDE RECORDS SUMMARY | 2023-09-17 17:17 | XMS_ITS | Clinical Summary ---
Author Name Unknown Organization [facility] Address [address] [place] [address] Care Team Providers Care Hand Rug Cleaner Name Role Phone Elsewhere, Pcp Primary Care Provider Unavailabl e Source Comments Patient records contain information from all sites at [facility]. For routine questions regarding patient records, call [phone] during business hours, M-F 8:00 AM - 5:00 PM Central Time. Record requests for emergency care only can be directed to [phone] at any time.[facility] Allergies Active Allergy Reactions Criticality Noted [...] by mouth 3 (three) times a week. Iddfpf-Qgubmgfuh-Xf iday 0 03/14/2022 Active B complex-vitamins (BALANCE [...] Overview: Added automatically from request for surgery [id number] Encounters Date Type Department Care Team Description 07/08/2023 Orders Only Division of Thoracic Surgery in [place], [place] [address] [place] [phone] Susan Jarrett R.N. Thymoma (Primary Dx) from [...] often do you attend chur ch or jew services? Never 06/04/2022 Do you belong to [...] care, and heating? Not very hard 06/04/2022 [facility] of Occupat ional Health - Occupational [...] slept in a nursing home (including now)? No 06/04/2022 Nutrition Answer [...] Master's degree (e.g., MA, MS, Milly, MEd, ENGINEERING AID, MADELYN) 06/04/2022 Sex and Gender Information Value Date Recorded Sex Assigned at Female 06/04/2022 4:58 PM CDT Gender Identity Female 06/04/2022 4:58 PM CDT Sexual Orientation Straight 06/04/2022 4: 58 PM CDT Last Filed Vital Signs Vital Sign Reading Time Taken Comments Blood Pressure 125/53 08/27/2022 10:15 AM HOSPITAL ATTENDANT Pulse 82 08/27/2022 10:15 AM HOSPITAL ATTENDANT Temperature 36.8 ??C (98.2 ??F) 08/27/2022 10:[address] Respiratory Rate 16 08/27/2022 10:15 AM HOSPITAL ATTENDANT Oxygen Saturation 98% 08/27/2022 10:15 AM HOSPITAL ATTENDANT Inhaled Oxygen Concentration - - Weight 67.6 kg (149 lb 0.5 oz) 08/26/2022 9:15 A M HOSPITAL ATTENDANT Height 173.9 cm (5' 8.47) 08/22/2022 7:06 AM CS T Body Mass Index 22.35 08/22/2022 7:06 AM HOSPITAL ATTENDANT Plan of Treatment Upcoming Encounters Date Type Department Care Team (Late st Contact Info) Description 11/11/2023 10:40 AM CDT Appointment Department of Laboratory Medicine and Pathology, [facility], in [place], [place] [address] [place] [phone] Radha Keen APRN, C.N.P., M.S.N. [address] [place] [phone] 11/11/2023 11:15 AM CDT Appointment Department of Radiology, [facility] in [place], [place] [address] [place] [phone] Radha Keen APRN, C.N.P., M.S.N. [address] [place] [phone] 11/11/2023 1:00 PM CDT Office Visit Division of Thoracic Surgery in [place], [place] [address] [place] [phone] Radha Keen APRN, Sandip.N.P., M.S.N. [address] [place] [phone] Health Maintenance Due Date Last Done Comments [...] history exists Medical Devices Implanted Type Area Assistant Product Manager Device Identifier Shelf Expiration Date Model / Serial / Lot Clp Hrzn Ti 6 Clp Lg Orng - [id number] Implanted:Qty: 1 on 08/22/2022 by Rosaura Claudio M.D., Ph.D. at [facility] Hard[facility] e.g. pins/screws/r ods [employer] [id number] 04/16/2027 [id number] / / [id number] Ocular Lens Ocular Lens Eye Orthopedic Other Orthopedic Other Wrist Procedures Procedure Name Priority Date/Time Associated Diagnosis Comments OUTSIDE DX CHEST Routine 09/07/2023 12:3 5 PM HOSPITAL ATTENDANT OUTSIDE CT BODY Routine 09/04/2023 11:10 PM HOSPITAL ATTENDANT OUTSIDE DX CHEST Routine 09/04/2023 8:35 PM HOSPITAL ATTENDANT from Last 3 Months Results * XR CHEST 1V PORTABLE-Outside Chest Xray (09/07/2023 12:35 PM HOSPITAL ATTENDANT) Only the most recent of2 resultswithin the time period is included. Narrative IIMS - 09/08/2023 12:00 PM HOSPITAL ATTENDANT This order has been created and auto-finalized to support the import of outside images. If available, original interpretation can be found on the Media Tab in Chart Review, in Document Viewer, or as an image in QREADS. If a re-interpretation or overread is required please follow defined workflow. ?? Provider Not In System IMG DIAGNOSTIC IM AGING PROCEDURES IIAR NA * CT Angio Chest PE Protocol-Outside CT Body (09/04/2023 11:10 PM HOSPITAL ATTENDANT) Narrative II - 09/08/2023 12:09 PM HOSPITAL ATTENDANT This order has been created and auto-finalized [...] Advance Directives For more information, please contact: [phone] Documents on File Type Date Recorded Patient Fish Straightener Expl anation Advance Directives 08/22/2022 9:15 AM Rea Phillips HCPOA/ADVOCATE/AGENT/R EPRESENTATIVE/SURROGAT E Latest Code Status on File Code Status Date Activated Date Inactivated Comments Full Code 08/22/2022 3:36 PM 08/27/2022 2:15 PM Question Answer Comments Full Code: Not Discussed Due to: Patient not available Healthcare Agents on File Name Relationship Healthcare Agent Relationship Communication Rea Sousa Sister Health Care Agent [email or web address] Abraham Jacqueline Leavitt Health Care Agent [email or web address] Alex Leavitt First Altern ate Health Care Agent Care Teams Hand Rug Cleaner Relationship Specialty Start Date End Date Elsewhere, Pcp PCP - General Family Medicine 01/03/18
--- OUTSIDE RECORDS SUMMARY | 2023-09-17 17:17 | XMS_ITS | Encounter Summary ---
Author Name Unknown Organization [facility] Address [address] [place] [address] Care Team Providers Care It Infrastructure Specialist Name Role Phone Elsewhere, Pcp Primary Care Provider Unavailabl e Reason for Visit * Reason Onset Date Comments medication refill 10/22/2022 Encounter Details Date Type Department Care Team (Latest Contact Info) Description 10/22/2022 Clinical Communication Department of Cardiovascular Surgery in [place], [place] [address] [place] [phone] Rosaura Claudio M.D., Ph.D. [address] [place] [phone] medication refill Social History Tobacco Use Types [...] any clubs o r organizations such as restoration groups, unions, fraternal or athletic groups, or [...] care, and heating? Not very hard 06/04/2022 [facility] [place] of Occupat ional Health - Occupational Stress [...] Master's degree (e.g., MA, MS, Milly, MEd, CLAY PROCESSING FACTORY WORKER, MADELYN) 06/04/2022 Sex and Gender Information Value [...] will not go through. Sent portal message. ING MACHINE ATTENDANT * Telephone Encounter - Arlette Khan - 10/22/2022 3:15 PM CST Patient is requesting Lyrica refill sent to [facility] in [place]. ING MACHINE ATTENDANT documented in this encounter Plan of Treatment Upcoming Encounters Date Type Department Care Team (Late st Contact Info) Description 11/11/2023 10:40 AM CDT Appointment Department of Laboratory Medicine and Pathology, [facility] in [place], [place] [address] [place] [phone] Radha Keen APRN, C.N.P., M.S.N. [address] [place] [phone] 11/11/2023 11:15 AM CDT Appointment Department of Radiology, [facility] in [place], [place] [address] [place] [phone] Radha Keen APRN, Sandip.N.P., M.S.N. [address] [place] [phone] 11/11/2023 1:00 PM CDT Office Visit Division of Thoracic Surgery in [place], [place] [address] [place] [phone] Radha Keen APRN, C.N.P., M.S.N. [address] [place] [phone] documented as of this encounter Visit Diagnoses Not on filedocumented in this encounter Care Teams It Infrastructure Specialist Relationship Specialty Start Date End Date Elsewhere, Pcp PCP - General Family Medicine 01/03/18 documented as of this encounter
--- OUTSIDE RECORDS SUMMARY | 2023-09-17 17:17 | XMS_ITS | Referral Summary ---
Author Name Unknown Organization [facility] Address [address] [place] [address] Care Team Providers Care Knowledge Analyst Name Role Phone Elsewhere, Pcp Primary Care Provider Unavailabl e Source Comments Patient records contain information from all sites at [facility]. For routine questions regarding patient records, call [phone] during business hours, M-F 8:00 AM - 5:00 PM Central Time. Record requests for emergency care only can be directed to [phone] at any time.[facility] Encounters Date Type Department Care Team Description 07/08/2023 Orders Only Division of Thoracic Surgery in [place], [place] [address] [place] [address] Susan Jarrett R.N. Thymoma (Primary Dx) from [...] by mouth 3 (three) times a week. Vbzsvb-[id number] iday 0 03/14/2022 Active B complex-vitamins (BALANCE [...] Overview: Added automatically from request for surgery [id number] Immunizations Name Administration Dates Next Due PCV13 [...] How often do you attend chur or lutheran services? Never 06/04/2022 Do you belong to any clubs o r organizations such as voodoo groups, unions, fraternal or athletic groups, or [...] care, and heating? 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 [employer]ANERS Pulse 82 08/27/2022 10:15 AM [employer] Temperature 36.8 ??C (98.2 ??F) 08/27/2022 10:[address] Respiratory Rate 16 08/27/2022 10:15 AM SUPER[employer] Oxygen Saturation 98% 08/27/2022 10:15 AM [employer] Inhaled Oxygen Concentration - - Weight 67.6 kg (149 lb 0.5 oz) 08/26/2022 9:15 A M [employer] Height 173.9 cm (5' 8.47) 08/22/2022 7:06 AM CS T Body Mass Index 22.35 08/22/2022 7:06 AM SUPER[employer] Plan of Treatment Upcoming Encounters Date Type Department Care Team (Late st Contact Info) Description 11/11/2023 10:40 AM CDT Appointment Department of Laboratory Medicine [facility], [facility], in [place], [place] [address] [place] [address] Radha Keen APRN, C.N.P., M.S.N. [address] [place] [phone] 11/11/2023 11:15 AM CDT Appointment Department of Radiology, [facility], in [place], [place] [address] [place] [phone] Radha Keen APRN, C.N.P., M.S.N. [address] [place] [phone] 11/11/2023 1:00 PM CDT Office Visit Division of Thoracic Surgery in [place], [place] [address] [place] [phone] Radha Keen APRN, C.N.P., M.S.N. [address] [place] [phone] Medical Devices Implanted Type Area Computed Tomography Technologist Device Identifier Shelf Expiration Date Model / Serial / Lot Clp Hrzn Ti 6 Clp Lg Orng - [id number] Implanted:Qty: 1 on 08/22/2022 by Rosaura Claudio M.D., Ph.D. at [facility] Hardware e.g. pins/screws/r ods Xolve [id number] 04/16/2027 [id number] / / [id number] Ocular Lens Ocular Lens Eye Orthopedic Other Orthopedic Other Wrist Procedures Procedure Name Priority Date/Time Associated Diagnosis Comments OUTSIDE DX CHEST Routine 09/07/2023 12:3 5 PM [employer] OUTSIDE CT BODY Routine 09/04/2023 11:10 PM [employer] OUTSIDE DX CHEST Routine 09/04/2023 8:35 PM [employer] from Last 3 Months Results * XR CHEST 1V PORTABLE-Outside Chest Xray (09/07/2023 12:35 PM [employer]) Only the most recent of2 resultswithin the time period is included. Narrative [facility] - 09/08/2023 12:00 PM [employer] This order has been created and auto-finalized to support the import of outside images. If available, original interpretation can be found on the Media Tab in Chart Review, in Document Viewer, or as an image in QREADS. If a re-interpretation or overread is required please follow defined workflow. ?? Provider Not In System IMG DIAGNOSTIC IM AGING PROCEDURES Performing Organization Address [facility] de Phone Number IIMS NA * CT Angio Chest PE Protocol-Outside CT Body (09/04/2023 11:10 PM [employer]) Narrative [facility] - 09/08/2023 12:09 PM [employer] This order has been created and auto-finalized to support the import of outside images. If available, original interpretation can be found on the Media Tab in Chart Review, in Document Viewer, or as an image in QREADS. If a re-interpretation or overread is required please follow defined workflow. ?? Provider Not In System IMG CT PROCEDURES Performing Organization Address [facility] de Phone Number IIMS NA from Last 3 Months Advance Directives For more information, please contact: [phone] Documents on File Type Date Recorded Patient Ribber Expl anation Advance Directives 08/22/2022 9:15 AM Rea Phillips HCPOA/ADVOCATE/AGENT/R EPRESENTATIVE/SURROGAT E Latest Code Status on File Code Status Date Activated Date Inactivated Comments Full Code 08/22/2022 3:36 PM 08/27/2022 2:15 PM Question Answer Comments Full Code: Not Discussed Due to: Patient not available Healthcare Agents on File Name Relationship Healthcare Agent Relationship Communication Rea Duran Health Care Agent [phone] (Home) [email or web address] Abraham Leavitt Health Care Agent [email or web address] Alex Irvin Jacqueline Leavitt First Altern ate Health Care Agent Care Teams Knowledge Analyst Relationship Specialty Start Date End Date Elsewhere, Pcp PCP - General Family Medicine 01/03/18
--- OUTSIDE RECORDS SUMMARY | 2023-09-17 17:17 | XMS_ITS | Encounter Summary ---
Author Name Unknown Organization [facility] Address [address] [place] [address] Care Team Providers Care Electronic Console Display Operator Name Role Phone Elsewhere, Pcp Primary Care Provider Unavailabl e Encounter Details Date Type Department Care Team (Latest Contact Info) Description 04/18/2023 Clinical Communication Department of Cardiovascular Surgery in [place], [place] [address] [place] [phone] Rosaura Claudio M.D., Ph.D. [address] [place] [phone] Social History Tobacco Use Types Packs/Day Years [...] any clubs o r organizations such as sabianism groups, unions, fraternal or athletic groups, or [...] care, and heating? Not very hard 06/04/2022 [facility] of Occupat ional Health - Occupational Stress [...] Master's degree (e.g., MA, MS, Milly, MEd, VISUAL MERCHANDISING MANAGER, MADELYN) 06/04/2022 Sex and Gender Information [...] of Laboratory Medicine and Pathology, [facility] in [place], [place] [address] [place] [address] Radha Keen APRN, C.N.P., M.S.N. [address] [place] [phone] 11/11/2023 11:15 AM CDT Appointment Department of Radiology, [facility] in [place], [place] [address] [place] [address] Radha Keen APRN, C.N.P., M.S.N. [address] [place] [phone] 11/11/2023 1:00 PM CDT Office Visit Division of Thoracic Surgery in [place], [place] [address] [place] [phone] Radha Keen APRN, C.N.P., M.S.N. [address] [place] [phone] documented as of this encounter Visit Diagnoses Not on filedocumented in this encounter Care Teams Electronic Console Display Operator Relationship Specialty Start Date End Date Elsewhere, Pcp PCP - General Family Medicine 01/03/18 documented as of this encounter
--- OUTSIDE RECORDS SUMMARY | 2023-09-17 17:17 | XMS_ITS | Encounter Summary ---
Author Name Unknown Organization [facility] Address [address] [place] [address] Care Team Providers Care Pricing Analyst Name Role Phone Elsewhere, Pcp Primary Care Provider Unavailabl e Encounter Details Date Type Department Care Team (Late st Contact Info) Description 10/26/2022 Clinical Communication Division of Thoracic Surgery in [place], [place] [address] [place] [address] Susan Jarrett, RYesikaN. Social History Tobacco Use [...] How often do you attend chur or sabianism services? Never 06/04/2022 Do you belong to [...] care, and heating? Not very hard 06/04/2022 [facility] of Occupat ional Health - [...] Master's degree (e.g., MA, MS, Milly, MEd, CONVENTION MANAGER, MADELYN) 06/04/2022 Sex and Gender Information Value Date Recorded Sex Assigned at Female 06/04/2022 4:58 PM CDT Gender Identity Female 06/04/2022 4:58 PM CDT Sexual Orientation Straight 06/04/2022 4: 58 PM CDT documented as of this encounter Miscellaneous Notes * Addendum Note - Suly Mansfield APRN, C.N.P. - 10/26/2022 10:09 AM PUG MILL OPERATOR HELPER Addended by: SULY MANSFIELD on: 10/26/2022 10:09 AM Modules accepted: Orders MILL OPERATOR HELPER * Telephone Encounter - Susan Jarrett R.N. - 10/26/2022 9:43 AM PUG MILL OPERATOR HELPER PLAN The following information was provided: Patient [...] following references were used: nursing clinical judgement MILL OPERATOR HELPER documented in this encounter Plan of Treatment Upcoming Encounters Date Type Department Care Team (Late st Contact Info) Description 11/11/2023 10:40 AM CDT Appointment Department of Laboratory Medicine and Pathology, [facility], in [place], [place] [address] [place] [phone] Suly Mansfield APRN, Sandip.N.Avery., M.S.N. [address] [place] [phone] 11/11/2023 11:15 AM CDT Appointment Department of Radiology, [facility], in [place], [place] [address] [place] [address] Suly Mansfield APRN, C.N.P., M.S.N. [address] [place] [phone] 11/11/2023 1:00 PM CDT Office Visit Division of Thoracic Surgery in [place], [place] [address] [place] [address] Suly Mansfield APRN, C.N.P., M.S.N. [address] [place] [phone] documented as of this encounter Visit Diagnoses Not on filedocumented in this encounter Care Teams Pricing Analyst Relationship Specialty Start Date End Date Elsewhere, Pcp PCP - General Family Medicine 01/03/18 documented as of this encounter
--- OUTSIDE RECORDS SUMMARY | 2023-09-17 17:18 | XMS_ITS | Encounter Summary ---
Author Name Unknown Organization [facility] Address [address] [place] [address] Care Team Providers Care Scientific Research Manager Name Role Phone Elsewhere, Pcp Primary Care Provider Unavailabl e Encounter Details Date Type Department Care Team (Late st Contact Info) Description 10/03/2022 Clinical Communication Division of Thoracic Surgery in [place], [place] [address] [place] [phone] Rosaura Claudio M.D., Ph.D. [address] [place] [address] Social History Tobacco Use Types Packs/Day Years [...] r organizations such as buddhism groups, unions, fraividence or athletic groups, or school groups? No [...] and heating? Not very hard 06/04/2022 [facility] [place] of Occupat ional Health - Occupational Stress [...] Master's degree (e.g., MA, MS, Milly, MEd, FRENCH POLISHER, MADELYN) 06/04/2022 Sex and Gender Information Value Date Recorded Sex Assigned at Female 06/04/2022 4:58 PM CDT Gender Identity Female 06/04/2022 4:58 PM CDT Sexual Orientation Straight 06/04/2022 4: 58 PM CDT documented as of this encounter Miscellaneous Notes * Telephone Encounter - Radha Keen APRN, C.N.P. - 10/05/2022 1:34 PM CST Left another message. PAINTER * Telephone Encounter - Radha Keen APRN, C.N.P. - 10/04/2022 9:46 AM CST Left message PAINTER documented in this encounter Plan of Treatment Upcoming Encounters Date Type Department Care Team (Late st Contact Info) Description 11/11/2023 10:40 AM CDT Appointment Department of Laboratory Medicine and Pathology, [place], [place] [address] [place] [phone] Radha Keen APRN, C.N.P., M.S.N. [address] [place] [phone] 11/11/2023 11:15 AM CDT Appointment Department of Radiology, [facility] in [place], [place] [address] [place] [phone] Radha Keen APRN, Sandip.N.P., M.S.N. [address] [place] [phone] 11/11/2023 1:00 PM CDT Office Visit Division of Thoracic Surgery in [place], [place] [address] [place] [phone] Radha Keen APRN, C.N.P., M.S.N. [address] [place] [phone] documented as of this encounter Visit Diagnoses Not on filedocumented in this encounter Care Teams Scientific Research Manager Relationship Specialty Start Date End Date Elsewhere, Pcp PCP - General Family Medicine 01/03/18 documented as of this encounter
--- OUTSIDE RECORDS SUMMARY | 2023-09-17 17:18 | XMS_ITS | Encounter Summary ---
Author Name Unknown Organization [facility] Address [address] [place] [phone] Care Team Providers Care Gasoline Truck Operator Name Role Phone Elsewhere, Pcp Primary Care Provider Unavailabl e Reason for Visit * Reason Onset Date Comments Pre-visit Intake 10/12/2022 Encounter Details Date Type Department Care Team (Latest Contact Info) Description 10/12/2022 11:30 AM CUTTER OPERATOR TILE Clinical Communication Virtual Review in [place], [place] 200 [place], [place] [phone] Pre-visit Intake Social History Tobacco Use Types [...] care, and heating? Not very hard 06/04/2022 [facility] - [facility]ational Stress Questionnaire [...] Master's degree (e.g., MA, MS, Milly, MEd, GINSENG FARMER, MADELYN) 06/04/2022 Sex and Gender Information Value Date Recorded Sex Assigned at Female 06/04/2022 4:58 PM CDT Gender Identity Female 06/04/2022 4:58 PM CDT Sexual Orientation Straight 06/04/2022 4: 58 PM CDT documented as of this encounter Plan of Treatment Upcoming Encounters Date Type Department Care Team (Late st Contact Info) Description 11/11/2023 10:40 AM CDT Appointment Department of Laboratory Medicine and Pathology, [facility], in [place], [place] [address] [place] [address] Radha Keen APRN, C.N.P., M.S.N. [address] [place] [phone] 11/11/2023 11:15 AM CDT Appointment Department of Radiology, [facility], in [place], [place] [address] [place] [phone] Radha Keen APRN, C.N.P., M.S.N. [address] [place] [phone] 11/11/2023 1:00 PM CDT Office Visit Division of Thoracic Surgery in [place], [place] [address] [place] [phone] Radha Keen APRN, C.NLuz Maria, M.S.N. [address] [place] [phone] documented as of this encounter Visit Diagnoses Not on filedocumented in this encounter Care Teams Gasoline Truck Operator Relationship Specialty Start Date End Date Elsewhere, Pcp PCP - General Family Medicine 01/03/18 documented as of this encounter
--- OUTSIDE RECORDS SUMMARY | 2023-09-17 17:18 | XMS_ITS | Encounter Summary ---
Author Name Unknown Organization [facility] Address [address] [place] [address] Care Team Providers Care Bill Checker Name Role Phone Elsewhere, Pcp Primary Care Provider Unavailabl e Reason for Referral * Outpatient (Routine) - Closed Specialty Diagnoses / Procedures Referred By Joe allison Referred To Contact Thoracic Surgery Abril Nash P.A.-C. 200 [place] [address] [facility] Referral ID Status Reason Start Date Expiration Date Visits Re quested Visits Authorized [id number] Closed 10/30/2022 10/29/2025 1 1 FRAME TENDER * MRI/CAT/PET Scan (Routine) - Closed Specialty Diagnoses / Procedures Referred By Joe allison Referred To Contact Radiology Diagnoses Mass Mediastinal Procedures CT Chest with IV Contrast Abril Nash P.A.-C. [address] [place] [phone] [facility] Referral ID Status Reason Start Date Expiration Date Visits Re quested Visits Authorized [id number] Closed 10/30/2022 10/30/2023 1 1 FRAME TENDER Reason for Visit * Outpatient (Routine) - Closed Specialty Diagnoses / Procedures Referred By Joe t Referred To Contact Video Medicine Diagnoses Mass Mediastinal Delaney Wade M.D. [facility] Referral ID Status Reason Start Date Expiration Date Visits Re quested Visits Authorized [id number] Closed 08/27/2022 08/27/2023 1 1 Encounter Details Date Type Department Care Team (Late st Contact Info) Description 10/15/2022 11:00 AM FLY FRAME TENDER Telemedicine Division of Thoracic Surgery in [place], [place] [address] [place] [phone] Abril Nash P.A.-C. [address] [place] [phone] Mass Mediastinal Social History Tobacco Use Types [...] often do you attend chur ch or sikh services? Never 06/04/2022 Do you belong to [...] care, and heating? Not very hard 06/04/2022 [facility] of Occupat ional Health - Occupational Stress [...] or slept in a alf (including now)? No 06/04/2022 Nutrition Answer Date [...] degree (e.g., MA, MS, Milly, MEd, SAP PPM CONSULTANT, MADELYN) 06/04/2022 Sex and Gender Information Value [...] it was necessary. Postoperative visit no charge. FRAME TENDER documented in this encounter Plan of Treatment Upcoming Encounters Date Type Department Care Team (Late st Contact Info) Description 11/11/2023 10:40 AM CDT Appointment Department of Laboratory Medicine and Pathology, [facility] in [place], [place] [address] [place] [phone] Radha Keen APRN, Sandip.NYesikaP., M.S.N. [address] [place] [phone] 11/11/2023 11:15 AM CDT Appointment Department of Radiology, [facility] in [place], [place] [address] [place] [phone] Radha Keen APRN, AngelaNYesikaP., M.S.N. [address] [place] [phone] 11/11/2023 1:00 PM CDT Office Visit Division of Thoracic Surgery in [place], [place] [address] [place] [phone] Radha Keen APRN, C.NYesikaPYesika, M.S.N. [address] [place] [phone] Scheduled Referrals Name Type Priority Associated Diagnoses [...] mildly increased in size. Abril Nash P.A.-C. [facility] CT PROCEDU RES * Creatinine with Estimated GFR (05/02/2023 9:09 AM CDT) Creatinine 0.79 0.59 - 1.04 mg/dL 05/02/2023 10:02 AM CDT DTL Estimated GFR (eGFR) 80 >=60 mL/min/BSA 05/02/2023 10:02 AM CDT DTL Comment: Estimated GFR calculated using the 2020 CKD_EPI creatinine equation. Blood (Blood, Venous) 05/02/2023 9:09 AM CDT 05/02/2023 9:44 AM CDT Abril Nash P.A.-C. LAB BLOOD ADD- ON [facility] [address] [place] [address], [facility] DTL [facility] 200 [place] [address] documented in this encounter Visit Diagnoses Diagnosis Mass Mediastinal Mass Mediastinal documented in this encounter Care Teams Bill Checker Relationship Specialty Start Date End Date Elsewhere, Pcp PCP - General Family Medicine 01/03/18 documented as of this encounter
--- OUTSIDE RECORDS SUMMARY | 2023-09-17 17:18 | XMS_ITS | Encounter Summary ---
Author Name Unknown Organization [facility] Address [address] [place] [address] Care Team Providers Care Occupational Therapy Specialist Name Role Phone Elsewhere, Pcp Primary Care Provider Unavailabl e Encounter Details Date Type Department Care Team (Late st Contact Info) Description 09/20/2022 Orders Only Division of Thoracic Surgery in [place], [place] [address] [place] [phone] Mookie Jaimes III, P.AYesika-Angela [address] [place] [address] Social History Tobacco Use Types Packs/Day Years [...] 06/04/2022 How often do you attend chur [place] or hinduism services? Never 06/04/2022 Do you belong to [...] care, and heating? Not very hard 06/04/2022 [facility] of Occupat ional Health - Occupational Stress [...] Master's degree (e.g., MA, MS, Milly, MEd, DOOR MACHINE OPERATOR, MADELYN) 06/04/2022 Sex and Gender [...] Appointment Department of Laboratory Medicine and Pathology, [facility], in [place], [place] [address] [place] [address] Radha Keen APRN, C.N.P., M.S.N. [address] [place] [phone] 11/11/2023 11:15 AM CDT Appointment Department of Radiology, [facility], in [place], [place] [address] [place] [phone] Radha Keen APRN, C.NCasandra., M.S.N. [address] [place] [phone] 11/11/2023 1:00 PM CDT Office Visit Division of Thoracic Surgery in [place], [place] [address] [place] [address] Radha Keen APRN, Sandip.N.P., M.S.N. [address] [place] [phone] documented as of this encounter Visit Diagnoses Not on filedocumented in this encounter Care Teams Occupational Therapy Specialist Relationship Specialty Start Date End Date Elsewhere, Pcp PCP - General Family Medicine 01/03/18 documented as of this encounter
--- OUTSIDE RECORDS SUMMARY | 2023-09-17 17:18 | XMS_ITS | Clinical Summary ---
Author Name Unknown Organization [employer] [facility] Address [place], [place] [address] Care Team Providers Care Plastic Extruding Machine Operator Name Role Phone Chitra Bruno MD Primary [...] Department Care Team Description 07/31/2023 Lab Requisition [facility] [phone] Aury Estevez MD from Last 3 Months [...] Comments Blood Pressure 118/78 09/28/2010 2:38 PM [employer] Pulse 71 09/28/2010 2:38 PM [employer] Temperature - - Respiratory Rate - - Oxygen Saturation - - Inhaled Oxygen Concentration - - Weight 85.2 kg (187 lb 12.8 oz) 09/28/2010 2:38 PM [employer] Height 174 cm (5' 8.5) 09/05/2010 3:52 PM [employer] Body Mass Index 28.14 09/05/2010 3:52 PM [employer] WORK[employer] Plan of Treatment Health Maintenance Due Date [...] TRACKING EVENT Routine 07/31/2023 11 :30 AM [employer] PATH BREAST CORE BIOPSY Routine 07/31/2023 11:30 AM [employer] from Last 3 Months Results * LAB TRACKING EVENT (07/31/2023 11:30 AM [employer] WORK[employer]) Other (Other) Client Collect / Unknown 07/31/2023 11:30 AM [employer]ER 07/31/2023 8:50 PM [employer] Aury Estevez MD LAB BILL ONLY [facility] [address] [place] [address], * PATH BREAST CORE BIOPSY (07/31/2023 11:30 AM [employer] WORKER) Case Report Pathology Report ?Case: [id number] ? Authorizing Provider: ??Aury Estevez MD ??Collected: ? 07/31/2023 1130 ? Ordering Location: ? [facility] ?Received: ?07/31/20232055 ? Pathologist: ? Dale Helton MD ? Specimen: ?Right Breast Core Ultrasound Biopsy ? 08/01/2023 10:26 AM [employer] WORK[employer] [facility] Final Diagnosis A) RIGHT BREAST, 9:00, 1 CM FROM NIPPLE, ULTRASOUND-GUID ED CORE BIOPSY: 1. Nodular densely fibrous breast stroma and dilated ducts 2. Negative for atypia and malignancy 08/01/2023 10:26 AM [employer] WORK[employer] [facility] Comment A) This is an image-guided breast biopsy. The pathologic findings should be correlated with radiologic and clinical findings prior to treatment decisions. Case seen in consultation with Dr. Andres. 08/01/2023 10:26 AM [facility] Clinical Information RIGHT breast lobulated, indistinct, hypoechoic, solid mass at 9:00, 1 cm from the nipple measuring 2.4 cm 08/01/2023 10:26 AM [facility] Gross Description A) Label: Patient's [...] 72 hours. TLF 07/31/2023 08/01/2023 10:26 AM [facility] Microscopic Description The final diagnosis is based on microscopic examination of appropriate sections of all specimens. A) The presence of blue ink is confirmed on tissue sections. 08/01/2023 10:26 AM [facility] Additional Information Interpreted at [facility] - [address] [facility] [address] [address] 08/01/2023 10:26 AM [facility] Other (Right Breast Core Ultrasound Biopsy) 07/31/2023 11:30 AM [employer] WORKER 07/31/2023 8:56 PM [employer] WORKER Aury Estevez MD PATHOLOGY/CYTOLO [facility] [address] [place] [address], from Last 3 Months Care Teams Plastic Extruding Machine Operator Relationship Specialty Start Date End Date Chitra Bruno MD [address] [place] [address] PCP - General Family Practice 08/29/10
--- OUTSIDE RECORDS SUMMARY | 2023-09-17 17:18 | XMS_ITS | Encounter Summary ---
Author Name Unknown Organization [facility] Address [address] [place] [address] Care Team Providers Care Human Resource Analyst Name Role Phone Elsewhere, Pcp Primary Care Provider Unavailabl e Reason for Visit * Reason Comments Med Refill Encounter Details Date Type Department Care Team (Late st Contact Info) Description 09/20/2022 Clinical Communication Division of Thoracic Surgery in [place], [place] [address] [place] [phone] Rosaura Claudio M.D., Ph.D. [address] [place] [phone] Med Refill Social History Tobacco Use Types [...] How often do you attend chur or pentecostal services? Never 06/04/2022 Do you belong to [...] and heating? Not very hard 06/04/2022 [facility] Occup[facility] ional [facility] - Occupational Stress [...] or slept in a half-way (including now)? No 06/04/2022 Nutrition Answer Date [...] Master's degree (e.g., MA, MS, Milly, MEd, EPIC ANALYST, MADELYN) 06/04/2022 Sex and Gender Information [...] pharmacy and portal message sent to patient. OND ASSORTER * Addendum Note - Suly Mansfeild APRN, C.N.P. - 09/24/2022 4:50 PM DIAMOND ASSORTER Addended by: SULY MANSFIELD on: 09/24/2022 04:50 PM Modules accepted: Orders OND ASSORTER * Telephone Encounter - Arlette Khan - 09/24/2022 3:03 PM CST Pat called back and is interested in trying gabapentin but she has some ?s and would like to talk with you. OND ASSORTER * Telephone Encounter - Suly Mansfield APRN, [...] the pain clinic for consideration of injection. OND ASSORTER * Telephone Encounter - BillNickierios Mcnair - 09/20/2022 4:04 PM CST Patient is still having breakthrough pain alternating Tylenol and ibuprofen every 6 hours. She is wanting to discuss pain issues, what she can do to lessen the pain, and also requesting some pain medication. OND ASSORTER documented in this encounter Plan of Treatment Upcoming Encounters Date Type Department Care Team (Late st Contact Info) Description 11/11/2023 10:40 AM CDT Appointment Department of Laboratory Medicine and Pathology, [facility] in [place], [place] [address] [place] [phone] Suly Mansfield APRN, C.N.P., M.S.N. [address] [place] [phone] 11/11/2023 11:15 AM CDT Appointment Department of Radiology, [facility] in [place], [place] [address] [place] [phone] Suly Mansfield APRN, aSndip.N.P., M.S.N. [address] [place] [phone] 11/11/2023 1:00 PM CDT Office Visit Division of Thoracic Surgery in [place], [place] [address] [place] [phone] Suly Mansfield APRN, C.N.P., M.S.N. [address] [place] [phone] documented as of this encounter Visit Diagnoses Not on filedocumented in this encounter Care Teams Human Resource Analyst Relationship Specialty Start Date End Date Elsewhere, Pcp PCP - General Family Medicine 01/03/18 documented as of this encounter
[2023-09-17 17:39] LABS: SARS Antigen* POSITIVE (Negative)
[2023-09-17] MEDS: ACETAMINOPHEN 500 MG TABLET 1000 MG PO ×2 (17:43→22:26)
[2023-09-17 17:44] LABS: D Dimer Quantitative* 1.32 ug/ml (0.00-0.50)
[2023-09-17 18:07] LABS: Chloride* 95 mmol/L (96-114)
[2023-09-17 18:08] LABS: Sodium* 132 mmol/L (135-149)
[2023-09-17 18:10] LABS: Creatinine* 0.5 mg/dL (0.5-1.5); Est. Creatinine Clearance* 52.05; Estimated Glomerular Filt Rate 100 ml/min
[2023-09-17 18:11] LABS: Anion Gap 9 mEq/L (7-15); Blood Urea Nitrogen* 12 mg/dL (7-30); Calcium* 9.2 mg/dL (8.4-10.6); Carbon Dioxide* 28 mmol/L (20-32); Glucose* 117 mg/dL (60-115)
[2023-09-17 18:14] LABS: C Reactive Protein* 8.2 mg/dL (0.5-1.0)
[2023-09-17 18:27] LABS: NT Pro B Type NatriureticPept* 167 pg/mL
[2023-09-17 19:16] LABS: Potassium* 4.2 mmol/L (3.6-5.1)
[2023-09-17 19:23] LABS: Basophils Absolute Auto 0.01 K/uL (0.00-0.30); Basophils Percent Auto 0.1 % (0.0-3.0); Hematocrit 38.2 % (33.0-51.0); Hemoglobin* 12.4 gm/dL (12.0-16.0); Immature Granulocytes Abs Auto 0.02 K/uL (0.00-0.30); Immature Granulocytes Pct Auto 0.2 %; Lymphocytes Percent Auto 3.6 % (20-44); Mean Corpuscular HGB Conc 33 gm/dL (32-36); Mean Corpuscular Hemoglobin 29 pg (26-34); Mean Corpuscular Volume 88 fL (80-100); Monocytes Percent Auto 6.3 % (0.0-11.0); Neutrophils Percent Auto 89.8 % (42.0-72.0); Platelet Count* 417 K/uL (140-440); RDW Coefficient of Variation % 14.4 % (11.5-15.5); Red Blood Count 4.33 m/uL (4.00-5.20); White Blood Count* 10.08 K/uL (4.50-11.00)
[2023-09-17 19:26] LABS: Slide Review Reflex No
--- NOTE | 2023-09-17 20:26 | ED.NURSE ---
[place] on divert, pt waitlisted at [facility] (wait of 8-12 hours). Pt updated. Pt eating dinner in room, denies further needs or questions.
--- NOTE | 2023-09-17 21:53 | ED.NURSE ---
Pt's meds that she will need: 2300: -Ibuprofen or tylenol -Estradiol (pt brought with and okayed by MD to take) -Docusate sodium (pt brought with and okayed by MD to take) 09/18/23 at 0900: -Tylenol 1000 mg -Omeprazole 40 mg 1430: -Prednisone 5 mg
[2023-09-17] MEDS: DOCUSATE SODIUM 100 MG CAPSULE 200 MG PO (22:31)
--- NOTE | 2023-09-17 22:31 | ED.NURSE ---
Pt states she does not have docusate sodium as she previously thought, so asks to receive it from hospital. MD updated. Pt also states her car ([employer]) is parked in clinic parking lot. Pt to update va underwriter on if family is able to come and slat pickler keys. Security updated.
[2023-09-18] VITALS (26 sets, daily range): BP systolic 111–143; BP diastolic 58–71; PULSE 77–93; RESP 18–24; TEMP 36.4–37.4; O2SAT 90–98; BMI 21.6
[2023-09-18] MEDS: LORazepam 2 MG/ML inj 0.5 MG IVP (01:10)
[2023-09-18 02:39] LABS: Legionella pneumo Ag Urine L. pneumo Negative (Negative); S pneumo Ag Urine S. pneumo Negative (Negative)
--- NOTE | 2023-09-18 02:49 | CRLHL7_ITS ---
For Patients: As a result of the Cures Act, medical imaging exams and procedure reports are released immediately into your electronic medical record. You may view this report before your referring provider. If you have questions, please contact your health care provider. INDICATION: Pneumonia, cough TECHNIQUE: Chest radiograph 1 view COMPARISON: 09/14/2023 FINDINGS: Mediastinum: Previous median sternotomy and coronary artery bypass grafting (CABG) noted. The heart silhouette is normal in size and morphology. Lung: Patchy bibasilar airspace infiltrates and ground-glass opacities are noted without interval change. No sign of pleural effusion seen. No pneumothorax is identified. Bone and Soft tissue: Unremarkable for age. IMPRESSION: 1. Patchy bibasilar airspace infiltrates and ground-glass opacities are noted without interval change. Dictated by Woo Sparks MD @ 09/18/2023 3:21:58 AM Dictated by: Woo Sparks MD @ 09/18/2023 03:22:02 (Electronically Signed)
[2023-09-18] MEDS: levoFLOXacin 750 MG TABLET PO (02:56)
[2023-09-18] MEDS: ALBUTEROL SULFATE 2.5 MG/3 ML VIAL.NEB NEB (02:56)
--- NOTE | 2023-09-18 03:19 | ED.NURSE ---
neb and attempt at sputum collection, no success.
--- NOTE | 2023-09-18 03:35 | ED.NURSE ---
pt 79% room air with ambulation to bathroom and back, returned to bed and 1L nc applied, pt returned to 94% within 1 minute post ambulation. pt states her breathing feels better than it did when she first arrived
[2023-09-18] MEDS: ACETAMINOPHEN 500 MG TABLET 1000 MG PO (07:15)
[2023-09-18] MEDS: OMEPRAZOLE 20 MG CAPSULE DR 40 MG PO (07:15)
--- NOTE | 2023-09-18 08:10 | ED.NURSE ---
Report to SADA Solorzano MS. Patient accepted to [facility]
[2023-09-18] MEDS: LACTOBACILLUS ACIDOPHILUS 1 TABLET 1 TAB PO ×2 (12:23→19:03)
[2023-09-18] MEDS: AZITHROMYCIN 250 MG TABLET 500 MG PO (12:23)
[2023-09-18] MEDS: CEFEPIME HCL 2 GM in 0.9 % SODIUM CHLORIDE Mini-bag 100 ML IVPB ×2 (12:27→15:48)
--- NOTE | 2023-09-18 13:13 | P.IMHP_ITS ---
Hospitalist- H&P: HPI History of Present Illness Date Seen: 09/18/23 Chief complaint: sent from clinic to swap tank Narrative: Alexia Phillips is a 73 year old female admitted to the hospital with worsening pneumonia. Patient initially became ill at the beginning of July 2023. She had fever cough and dyspnea On August 03 she had a positive COVID test. After few days her fever went away but she continued to have cough and dyspnea. On August 15 she was seen in clinic and prescribed doxycycline for 10 days. She reports no improvement from that. On September 04 she presented to the emergency room and was admitted for bilateral pneumonia. Chest CT at that time showed no pulmonary embolism. She had diffuse patchy ground-glass opacities throughout the lower lobes and to a lesser degree the upper lobes and right middle lobe. She had a positive PCR test for COVID and a negative test for influenza and RSV. MRSA nasal swab was negative. Legionella antigen test was positive. Pneumococcal antigen test was negative. She was treated with cefepime and azithromycin. She was started on IV Solu-Medrol and then discharged on prednisone taper starting at 20 mg and Levaquin on September 08 she was not on oxygen at that time. She received a total of a 10 day course of Levaquin completed on September 14, 4 days ago. She had weaned down to prednisone 5 mg daily as of yesterday. She came back to the emergency room on September 14 reporting recurrence of fevers and hypoxia with any activity. Her her O2 sats at home drop into the 70s with activity. She was discharged home and came back to the emergency room on September 17. She continues to have fevers most days for the last few days. She is not coughing up significant sputum. There is no blood in her sputum. She is not having chest pain. No abdominal pain. She does have sores in her mouth that are making it difficult to eat. No bowel or bladder problems. No rash. 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) Hot flashes due to menopause ?N95.1 - Menopausal and female climacteric states (ICD-10) Osteoporosis ?M81.0 - Age-related osteoporosis without current pathological fracture (ICD- 10) Osteopenia (2018) ?M85.80 - Other specified disorders of bone density and structure, unspecified site (ICD-10) Left shoulder pain ?M25.512 - Pain in left shoulder (ICD-10) History of in vitro fertilization ?Z98.890 - Other specified postprocedural states (ICD-10) History of fracture of wrist (08/2017) ?Z87.81 - Personal history of (healed) traumatic fracture (ICD-10) Surgical History 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) ?Z90.89 - Acquired absence of other organs (ICD-10) History of total abdominal hysterectomy and bilateral salpingo-oophorectomy (2002) ?Z90.710 - Acquired absence of both cervix and uterus (ICD-10) ?Z90.722 - Acquired absence of ovaries, bilateral (ICD-10) ?Z90.79 - Acquired absence of other genital organ(s) (ICD-10) History of surgery on wrist (~2017) ?Z98.890 - Other specified postprocedural states (ICD-10) History of colonoscopy (2017) ?Z98.890 - Other specified postprocedural states (ICD-10) History of bilateral cataract extraction (2017) ?Z98.41 - Cataract extraction status, right eye (ICD-10) ?Z98.42 - Cataract extraction status, left eye (ICD-10) Family History Father Bladder cancer, Onset Age: 60 High blood pressure Paternal Grandfather Coronary artery disease Mother Ovarian cancer, Onset Age: 65 Sister Thyroid disease Social History Narrative: exercises regularly- 3-4/week gym, weights, cardio non-smoker rarely consumes alcohol lives in lives with 25 yo adopted Aspergers son Her sister Rea Purcell from [place] is healthcare power of health care attorney. Code status is full What is your current living situation?: I presently have a place to live Problems where you live: no known problems Problems where you live details: No known problems In the past 12 months, utilities in danger of being shut off: no In past 12 months, lack of transportation kept you from medical appts, meetings, work, or getting things needed for daily living: no In the past 12 mos, have been you worried that your food would run out before you had money to buy more?: never true In the past 12 mos, the food you bought just didn't last and you didn't have money to buy more?: never true Highest level of school completed/degree received: Master's degree Smoking Status: Never smoker Do you use any of these nicotine containing products: None Second hand tobacco smoke exposure: No How often do you have a drink containing alcohol: never How often do you have six or more drinks on one occasion: Never AUDIT-C Alcohol total score: 0 Non-prescribed substance use: denies use Caffeine: Yes (Occasional coffee) How often does anyone, including family, friends and others, physically hurt you : never How often does anyone, including family, friends and others, insult or talk down to you: never How often does anyone, including family, friends and others, threaten you with harm: never How often does anyone, including family, friends and others, scream or curse at you: never Little interest or pleasure in doing things: not at all Feeling down, depressed, or hopeless: not at all service: No Meds Home Medications and Allergies Home Medications Medication Instructions Recorded Confirmed Type acetaminophen 500 mg tablet 1,000 mg PO Q6H PRN 03/14/22 09/18/23 History ascorbic acid (vitamin C) 1,000 mg 1 g PO DAILY 03/14/22 09/18/23 History tablet cholecalciferol (vitamin D3) 50 2,000 unit PO DAILY 03/14/22 09/18/23 History mcg (2,000 unit) capsule cyanocobalamin (vitamin B-12) 1,000 mcg PO QWEEK 03/14/22 09/18/23 History 1,000 mcg tablet multivitamin with minerals-ferrous 1 tab PO DAILY 03/14/22 09/18/23 History sulfate 4.5 mg iron tablet (One Daily Multivitamins with Minerals) estradiol 0.5 mg tablet 0.5 mg PO DAILY 09/18/23 09/18/23 History glucosamine-chondroitin 500 mg-400 2 tab PO DAILY 09/18/23 09/18/23 History mg tablet (Cosamin DS) omeprazole 20 mg capsule,delayed 20 mg PO DAILY 09/18/23 09/18/23 History release prednisone 5 mg tablet 5 mg PO DAILY 09/18/23 09/18/23 History Allergies Allergy/AdvReac Type Severity Reaction Status Date / Time penicillin V Allergy Mild Rash Verified 09/17/23 17:31 Sulfa (Sulfonamide Allergy Mild Verified 09/17/23 17:31 Antibiotics) Exam Narrative: Exam Narrative: She is alert and appears in no obvious distress. Eyes normal. Oropharynx with scattered oral mucosal ulcers. Neck is supple without mass or adenopathy. No stridor. Respirations with bibasilar crackles and somewhat diminished breath sounds at lung bases. No wheezing. Cardiovascular: S1, S2, regular rate and rhythm. No murmur gallop or rub. Abdomen: Bowel sounds active. Abdomen is soft without tenderness or mass. Extremities without significant edema. No rash Const: Vital Signs, click to edit/add: Vital Signs - 24 hr 09/17/23 15:21 09/17/23 17:36 09/17/23 18:00 Temperature 100.6 F H Pulse Rate 110 H 93 Pulse Rate [Pulse Oximeter] Pulse Rate [Right Pulse Oximeter] 100 Respiratory Rate 18 Blood Pressure 168/72 H Blood Pressure [Ri ght Arm] Blood Pressure [Ri ght Upper Arm] 161/73 H Pulse Oximetry 91 92 98 Oxygen Delivery Me thod Room Air Nasal Cannula Oxygen Flow Rate 2 09/17/23 18:05 09/17/23 18:06 09/17/23 19:00 Temperature Pulse Rate 93 92 98 Pulse Rate [Pulse Oximeter] Pulse Rate [Right Pulse Oximeter] Respiratory Rate Blood Pressure Blood Pressure [Ri ght Arm] Blood Pressure [Ri ght Upper Arm] Pulse Oximetry 97 96 92 Oxygen Delivery Me thod Oxygen Flow Rate 09/17/23 19:03 09/17/23 19:04 09/17/23 19:30 Temperature 99.6 F Pulse Rate 95 95 89 Pulse Rate [Pulse Oximeter] Pulse Rate [Right Pulse Oximeter] Respiratory Rate Blood Pressure 117/57 L Blood Pressure [Ri ght Arm] Blood Pressure [Ri ght Upper Arm] Pulse Oximetry 96 94 96 Oxygen Delivery Me thod Nasal Cannula Nasal Cannula Oxygen Flow Rate 2 2 09/17/23 19:31 09/17/23 20:00 09/17/23 20:01 Temperature Pulse Rate 88 87 86 Pulse Rate [Pulse Oximeter] Pulse Rate [Right Pulse Oximeter] Respiratory Rate Blood Pressure 120/58 L 115/62 Blood Pressure [Ri ght Arm] Blood Pressure [Ri ght Upper Arm] Pulse Oximetry 96 96 96 Oxygen Delivery Me thod Nasal Cannula Nasal Cannula Nasal Cannula Oxygen Flow Rate 2 2 2 09/17/23 20:02 09/17/23 20:30 09/17/23 20:35 Temperature Pulse Rate 86 88 85 Pulse Rate [Pulse Oximeter] Pulse Rate [Right Pulse Oximeter] Respiratory Rate Blood Pressure Blood Pressure [Ri ght Arm] Blood Pressure [Ri ght Upper Arm] Pulse Oximetry 96 95 96 Oxygen Delivery Me thod Nasal Cannula Nasal Cannula Nasal Cannula Oxygen Flow Rate 2 2 2 09/17/23 21:00 09/17/23 21:36 09/17/23 22:00 Temperature Pulse Rate 83 83 84 Pulse Rate [Pulse Oximeter] Pulse Rate [Right Pulse Oximeter] Respiratory Rate Blood Pressure Blood Pressure [Ri ght Arm] Blood Pressure [Ri ght Upper Arm] Pulse Oximetry 98 96 99 Oxygen Delivery Me thod Nasal Cannula Nasal Cannula Nasal Cannula Oxygen Flow Rate 2 2 2 09/17/23 22:04 09/17/23 22:35 09/17/23 23:17 Temperature Pulse Rate 83 81 83 Pulse Rate [Pulse Oximeter] Pulse Rate [Right Pulse Oximeter] Respiratory Rate Blood Pressure Blood Pressure [Ri ght Arm] Blood Pressure [Ri ght Upper Arm] Pulse Oximetry 98 97 99 Oxygen Delivery Me thod Nasal Cannula Nasal Cannula Nasal Cannula Oxygen Flow Rate 2 2 2 09/17/23 23:43 09/17/23 23:44 09/18/23 00:00 Temperature Pulse Rate 81 82 Pulse Rate [Pulse Oximeter] Pulse Rate [Right Pulse Oximeter] Respiratory Rate Blood Pressure 139/61 Blood Pressure [Ri ght Arm] Blood Pressure [Ri ght Upper Arm] Pulse Oximetry 96 97 Oxygen Delivery Me thod Nasal Cannula Nasal Cannula Nasal Cannula Oxygen Flow Rate 2 2 09/18/23 00:30 09/18/23 00:57 09/18/23 00:59 Temperature Pulse Rate 82 86 Pulse Rate [Pulse Oximeter] Pulse Rate [Right Pulse Oximeter] Respiratory Rate Blood Pressure 143/68 H Blood Pressure [Ri ght Arm] Blood Pressure [Ri ght Upper Arm] Pulse Oximetry 97 97 96 Oxygen Delivery Me thod Nasal Cannula Nasal Cannula Nasal Cannula Oxygen Flow Rate 2 1 1 09/18/23 01:00 09/18/23 01:30 09/18/23 02:00 Temperature Pulse Rate 83 80 79 Pulse Rate [Pulse Oximeter] Pulse Rate [Right Pulse Oximeter] Respiratory Rate Blood Pressure Blood Pressure [Ri ght Arm] Blood Pressure [Ri ght Upper Arm] Pulse Oximetry 95 95 96 Oxygen Delivery Me thod Nasal Cannula Nasal Cannula Nasal Cannula Oxygen Flow Rate 1 1 1 09/18/23 02:30 09/18/23 03:00 09/18/23 04:00 Temperature Pulse Rate 77 78 82 Pulse Rate [Pulse Oximeter] Pulse Rate [Right Pulse Oximeter] Respiratory Rate Blood Pressure Blood Pressure [Ri ght Arm] Blood Pressure [Ri ght Upper Arm] Pulse Oximetry 94 93 96 Oxygen Delivery Me thod Nasal Cannula Room Air Oxygen Flow Rate 1 09/18/23 04:30 09/18/23 05:00 09/18/23 05:30 Temperature Pulse Rate 80 81 82 Pulse Rate [Pulse Oximeter] Pulse Rate [Right Pulse Oximeter] Respiratory Rate Blood Pressure Blood Pressure [Ri ght Arm] Blood Pressure [Ri ght Upper Arm] Pulse Oximetry 98 96 96 Oxygen Delivery Me thod Nasal Cannula Nasal Cannula Nasal Cannula Oxygen Flow Rate 1 1 1 09/18/23 05:45 09/18/23 05:46 09/18/23 06:00 Temperature Pulse Rate 81 87 81 Pulse Rate [Pulse Oximeter] Pulse Rate [Right Pulse Oximeter] Respiratory Rate 18 Blood Pressure 122/71 Blood Pressure [Ri ght Arm] Blood Pressure [Ri ght Upper Arm] Pulse Oximetry 96 91 94 Oxygen Delivery Me thod Nasal Cannula Nasal Cannula Nasal Cannula Oxygen Flow Rate 1 09/18/23 06:30 09/18/23 07:00 09/18/23 07:30 Temperature Pulse Rate 84 81 88 Pulse Rate [Pulse Oximeter] Pulse Rate [Right Pulse Oximeter] Respiratory Rate Blood Pressure Blood Pressure [Ri ght Arm] Blood Pressure [Ri ght Upper Arm] Pulse Oximetry 95 96 90 Oxygen Delivery Me thod Nasal Cannula Nasal Cannula Nasal Cannula Oxygen Flow Rate 09/18/23 08:00 09/18/23 09:32 09/18/23 09:32 Temperature 97.6 F Pulse Rate 85 Pulse Rate [Pulse Oximeter] 86 Pulse Rate [Right Pulse Oximeter] Respiratory Rate 20 20 Blood Pressure Blood Pressure [Ri ght Arm] 111/64 Blood Pressure [Ri ght Upper Arm] Pulse Oximetry 96 94 94 Oxygen Delivery Me thod Nasal Cannula Nasal Cannula Nasal Cannula Oxygen Flow Rate 1 1 09/18/23 11:08 Temperature 98.9 F Pulse Rate Pulse Rate [Pulse Oximeter] 78 Pulse Rate [Right Pulse Oximeter] Respiratory Rate 24 Blood Pressure Blood Pressure [Ri ght Arm] 126/65 Blood Pressure [Ri ght Upper Arm] Pulse Oximetry 93 Oxygen Delivery Me thod Nasal Cannula Oxygen Flow Rate 1 Documenting provider has reviewed patient's vital signs: yes Hospitalist - H&P: Result Labs Labs: Short CBC 09/17/23 Range/Units 16:55 WBC 10.08 (4.50-11.00) K/uL Hgb 12.4 (12.0-16.0) gm/dL Hct 38.2 (33.0-51.0) % Plt Count 417 (140-440) K/uL BMP 09/17/23 16:55 Sodium 132 L Potassium 4.2 Chloride 95 L Carbon Dioxide 28 BUN 12 Creatinine 0.5 Glucose 117 H Calcium 9.[address] scan - chest: Radiologist's impression: INDICATION: Hypoxia. TECHNIQUE: CT chest PE was acquired with 95 cc Isovue 370 IV contrast. COMPARISON: September 04, 2023. FINDINGS: Heart and vasculature: Contrast opacification of the pulmonary arterial tree is adequate. No sign of pulmonary embolism. Heart size is normal. Thoracic aorta and pulmonary artery are normal in caliber. Lungs and pleura: Worsening multifocal basilar predominant ground-glass consolidations. No pleural effusions, pleural thickening, or pneumothorax. Lymph nodes/mediastinum: No mediastinal, hilar, or axillary adenopathy. Chest wall: No masses. Upper abdomen: No acute or significant findings. Bones: Unremarkable for age. IMPRESSION: No pulmonary embolism. Worsening multifocal pneumonia. Please note that all CT scans at this facility use dose modulation, iterative reconstruction, and/or weight-based dosing when appropriate to reduce radiation dose to as low as reasonably achievable. Dictated by Vineet Ellsworth MD @ 09/17/2023 6:02:49 PM Assessment and Plan Assessment and plan (1) Pneumonia: Problem comment: Getting worse despite relatively aggressive evaluation and treatment over the past month. Discussed with Infectious Disease consult. Will treat with a Zithromax in, vancomycin pending MRSA swab and cefepime. Obtain testing for Aspergillus and other fungal infections. Patient would likely benefit from bronchoscopy to evaluate Status: Acute (2) Hypoxia: Problem comment: Due to pneumonia Status: Acute (3) Legionella pneumonia: Problem comment: Total does is 10 days of antibiotics, Levaquin 500 mg q.day at discharge Prednisone continued taper at discharge Status: Acute (4) COVID-19: Problem comment: Symptomatic with a positive PCR since early July. Antigen still positive - cross reactive? Status: Acute (5) Oral ulcer: Problem comment: Magic mouthwash and monitor Status: Acute Plan Admit for broad-spectrum antibiotic treatment and ongoing evaluation for causes of pneumonia. Attempts to transfer patient last night were unsuccessful. Continue to work on transfer for specialty care, Infectious Disease? Pulmonology? Bronchoscopy. Total time spent today is 90 minutes, 60 minutes in coordination of care and discussing with patient other providers management of progressive pneumonia Infectious disease consult Katerin Ruiz MD
--- NOTE | 2023-09-18 13:30 | RESP.RT ---
Pt seen for oxygen needs and possible sputum (seen 3 times in attempt). Pt is short of breath on 2L. Difficult time completing sentences. RR increases with conversation, to 28 from 16. SPO2 92-96% BBS diminished, Coarse. Aerobika done on multiple visits to see if sputum could be produced. PT has a strong dry [employer] cough. Could try again in early AM, sputum production/obtaining a sample can be more successful. Attempt to do before breakfast, so sample is not contaminated with food particles.
--- NOTE | 2023-09-18 14:06 | PC.NURSE ---
When assisting with administration of antibiotic dose, luer lock noted to have become disconnected from left AC IV site. Pt was receiving IV cefepime at the time. Approximately 100cc of fluid noted on the floor next to the patient's bed, which accounted for the 100 cc dose of cefepime. Ananya, primary RN notified. Discussed with Sia, pharmacist and Dr. Hakwins. IV in left AC removed, new IV started in right wrist. Left AC previous IV site is without redness, drainage, swelling. Plan for patient to receive her scheduled IV vancomycin dose and then give dose of cefepime. Patient also updated.
[2023-09-18] MEDS: SENNOSIDES/DOCUSATE TABLET PO (14:43)
[2023-09-18] MEDS: ACETAMINOPHEN 325 MG TABLET 650 MG PO ×2 (14:43→21:34)
--- NOTE | 2023-09-18 15:11 | W.PM.INFDCN ---
Consultation Information Consultation Information Date of Consult: 09/18/23 Requesting Physician: Master Hawkins Reason for Consult: worsening pneumonia Consultation Statement: This patient recommendation is based on a telemedicine consult request which was completed asynchronously through chart review and information provided by the primary physician. The patient was not seen or examined today. The evaluation is consultative in nature and all patient care and treatment decisions can either be accepted or rejected by the patient's primary hospital-based treating physician using their own independent medical judgment for their patient. Safety Professional contact information: Please call [facility] call center [phone] HPI - Infectious Disease History of Present Illness History of Present Illness: 73 yo F with history of thoracotomy for removal of thymoma? at [facility], COVID-19 diagnosed on 08/03/23, recent treatment for Legionella pneumonia who presented on 09/17 with hypoxia, fevers. At the time of her COVID-19 diagnosis, she had fever, cough, dyspnea, fatigue, malaise. The fever resolved after ~4 days. Her other symptoms persisted. On 08/15, she was seen by her PCP and started on doxycycline. Her symptoms persisted despite the doxycycline. At the end of July, she was seen in the ED for rib pain due to persistent cough, and since then she had recurrence of the fever with worsening dyspnea. She was admitted to [place] from 09/04-09/08 with fever, hypoxia, and CTA chest showing diffuse patchy GGO throughout lower lobes and to a lesser degree the upper lobes and RML. Her COVID-19 test remained positive at that time (both PCR and antigen). She was started on cefepime and azithromycin. Urine Strep Ag neg. Urine Legionella Ag positive. MRSA nares negative. ID was consulted. Her antibiotics were switched to levofloxacin 750 mg daily to complete a 7 day course of treatment for CAP as well as possible Legionella. It appears the pt was discharged on 09/08 on levofloxacin 500 mg PO q24h to complete a 10 day course (finished ~09/13-09/14). She was also given 4 doses of solumedrol, then transitioned to a prednisone taper (20 mg 09/09-09/12, 10 mg 09/13-09/16, 5 mg 09/17-09/20). Per discussion with hospitalist, pt began feeling worse again after finishing the levofloxacin course. She had presented to the ED on 09/14 reporting shortness of breath, hypoxia, recurrence of fever. Per ED notes, she had a fever on 09/11 to 101, then again on 09/14 to 102.3. She reported desaturating into the low 70s with exertion. Labs showed no leukocytosis. CXR showed bilateral lower lobe pneumonia not significantly changed. She was discharged from the ED. Pt saw her PCP on 09/17 and was sent back to the ED due to hypoxia to 81-87%. On presentation, pt was febrile to 100.6, tachypneic, requiring 2 L NC. CTA chest showed no PE, and worsening multifocal basilar predominant ground glass consolidations. Pt reported she is not coughing up significant sputum, denied hemoptysis, chest pain. Also reports sores in her mouth that are making it difficult for her to eat. Pt was given a dose of levofloxacin. ID was consulted. Pt's antibiotics were switched to vanc, cefepime, azithromycin. Primary team has attempted to transfer the pt, without any success thus far. 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) Hot flashes due to menopause ?N95.1 - Menopausal and female climacteric states (ICD-10) Osteoporosis ?M81.0 - Age-related osteoporosis without current pathological fracture (ICD-10) Osteopenia (2017) ?M85.80 - Other specified disorders of bone density and structure, unspecified site (ICD-10) Left shoulder pain ?M25.512 - Pain in left shoulder (ICD-10) History of in vitro fertilization ?Z98.890 - Other specified postprocedural states (ICD-10) History of fracture of wrist (08/2017) ?Z87.81 - Personal history of (healed) traumatic fracture (ICD-10) Surgical History 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) ?Z90.89 - Acquired absence of other organs (ICD-10) History of total abdominal hysterectomy and bilateral salpingo-oophorectomy (2002) ?Z90.710 - Acquired absence of both cervix and uterus (ICD-10) ?Z90.722 - Acquired absence of ovaries, bilateral (ICD-10) ?Z90.79 - Acquired absence of other genital organ(s) (ICD-10) History of surgery on wrist (~2018) ?Z98.890 - Other specified postprocedural states (ICD-10) History of colonoscopy (2018) ?Z98.890 - Other specified postprocedural states (ICD-10) History of bilateral cataract extraction (2018) ?Z98.41 - Cataract extraction status, right eye (ICD-10) ?Z98.42 - Cataract extraction status, left eye (ICD-10) Family History Father Bladder cancer, Onset Age: 60 High blood pressure Paternal Grandfather Coronary artery disease Mother Ovarian cancer, Onset Age: 65 Sister Thyroid disease Social History Narrative: exercises regularly- 3-4/week gym, weights, cardio non-smoker rarely consumes alcohol lives in lives with 25 yo adopted Aspergers son Her sister Rea Purcell from [place] is healthcare 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 Code status is full What is your current living situation?: I presently have a place to live Problems where you live: no known problems Problems where you live details: No known problems In the past 12 months, utilities in danger of being shut off: no In past 12 months, lack of transportation kept you from medical appts, meetings, work, or getting things needed for daily living: no In the past 12 mos, have been you worried that your food would run out before you had money to buy more?: never true In the past 12 mos, the food you bought just didn't last and you didn't have money to buy more?: never true Highest level of school completed/degree received: Master's degree Smoking Status: Never smoker Do you use any of these nicotine containing products: None Second hand tobacco smoke exposure: No How often do you have a drink containing alcohol: never How often do you have six or more drinks on one occasion: Never AUDIT-C Alcohol total score: 0 Non-prescribed substance use: denies use Caffeine: Yes (Occasional coffee) How often does anyone, including family, friends and others, physically hurt you: never How often does anyone, including family, friends and others, insult or talk down to you: never How often does anyone, including family, friends and others, threaten you with harm: never How often does anyone, including family, friends and others, scream or curse at you: never Little interest or pleasure in doing things: not at all Feeling down, depressed, or hopeless: not at all service: No Home Medications and Allergies Home Medications and Allergies Inpatient Medications: Active Medications Generic Name Dose Route Start Last Admin Trade Name Beto PRN Reason Stop Dose Admin Acetaminophen 650 mg 09/18/23 09:41 Acetaminophen 325 Mg Tablet PO Q4H PRN Azithromycin 500 mg 09/18/23 12:00 09/18/23 12:23 Azithromycin 250 Mg Tablet PO 500 mg Q24H [facility] Administration Enoxaparin Sodium 40 mg 09/18/23 21:00 Enoxaparin 40 Mg/0.4 Ml Inj SUBCUT HS [facility] Estradiol 0.5 mg 09/19/23 09:00 Estradiol 1 Mg Tablet PO DAILY [facility] Cefepime HCl 2 gm/ Sodium 100 mls @ 200 mls/hr 09/18/23 12:00 09/18/23 12:27 Chloride IVPB 200 mls/hr Q12H [facility] Administration Vancomycin HCl 1,000 mg/ 260 mls @ 260 mls/hr 09/19/23 12:30 Sodium Chloride IVPB Q24H [facility] Protocol Lactobacillus Acidophilus 1 tab 09/18/23 12:00 09/18/23 12:23 Lactobacillus Acidophilus 1 Tablet PO 1 tab TIDWM [facility] Administration Lidocaine/Diphenhydr/Alum/Mg/Simeth 5 ml 09/18/23 09:41 Diphen/Lido/Alum/Mag/Simeth 5 Ml Suspension MUCOUS MEM QID PRN Melatonin 3 mg 09/18/23 09:41 Melatonin 3 Mg Tablet PO HS PRN Multivitamins/Minerals 1 tab 09/19/23 09:00 Multivitamin/Minerals 1 Tablet PO DAILY [facility] Omeprazole 20 mg 09/19/23 07:00 Omeprazole [address] PO DAILY@0700 [facility] Ondansetron HCl 4 mg 09/18/23 09:41 Ondansetron 2 Mg/Ml Inj IVP Q4H PRN Nausea Prednisone 5 mg 09/18/23 15:05 Prednisone 5 Mg Tablet PO 01/25/24 09:01 DAILY MIGUEL Senna/Docusate Sodium 1 - 2 tab 09/18/23 09:41 Sennosides/Docusate Tablet PO BID PRN Sodium Chloride 5 ml 09/18/23 21:00 Sodium Chloride 0.9 % (Flush) 10 Ml Syringe IVF BID MIGUEL Discontinued Medications Generic Name Dose Route Start Last Admin Trade Name Beto PRN Reason Stop Dose Admin Acetaminophen 1,000 mg 09/17/23 17:30 09/17/23 17:43 Acetaminophen 500 Mg Tablet PO 09/17/23 17:31 1,000 mg ONCE ONE Administration Acetaminophen Confirm 09/17/23 17:32 Acetaminophen 500 Mg Tablet Administered 09/17/23 17:33 Dose 1,000 mg .ROUTE .STK-MED ONE Acetaminophen 1,000 mg 09/17/23 22:01 09/17/23 22:26 Acetaminophen 500 Mg Tablet PO 09/17/23 22:02 1,000 mg ONCE ONE Administration Acetaminophen 1,000 mg 09/18/23 07:26 09/18/23 07:15 Acetaminophen 500 Mg Tablet PO 09/18/23 07:27 1,000 mg ONCE ONE Administration Albuterol 2.5 mg 09/18/23 02:51 09/18/23 02:56 Albuterol Sulfate 2.5 Mg/3 Ml Vial.Neb NEB 2.5 mg ONCE PRN Administration Cough Albuterol Confirm 09/18/23 02:57 Albuterol Sulfate 2.5 Mg/3 Ml Vial.Neb Administered 09/18/23 02:58 Dose 2.5 mg NEB .STK-MED ONE Docusate Sodium 200 mg 09/17/23 22:02 09/17/23 22:31 Docusate Sodium 100 Mg Capsule PO 09/17/23 22:03 200 mg ONCE ONE Administration Vancomycin HCl 1,250 mg/ 262.5 mls @ 175 mls/hr 09/18/23 12:30 09/18/23 13:41 Sodium Chloride IVPB 09/18/23 13:59 175 mls/hr ONCE ONE Administration Protocol Iopamidol 95 ml 09/17/23 17:31 Iopamidol IV 09/17/23 17:32 .STK-MED ONE Levofloxacin 750 mg 09/18/23 02:40 09/18/23 02:56 Levofloxacin 750 Mg Tablet PO 09/18/23 02:41 750 mg ONCE ONE Administration Levofloxacin Confirm 09/18/23 02:42 Levofloxacin 500 Mg Tablet Administered 09/18/23 02:43 Dose 500 mg .ROUTE .STK-MED ONE Lorazepam 0.5 mg 09/18/23 00:57 09/18/23 01:10 Lorazepam 2 Mg/Ml Inj IVP 09/18/23 00:58 0.5 mg ONCE ONE Administration Lorazepam Confirm 09/18/23 01:02 Lorazepam 2 Mg/Ml Inj Administered 09/18/23 01:03 Dose 2 mg .ROUTE .STK-MED ONE Omeprazole Confirm 09/18/23 07:11 Omeprazole [address] Administered 09/18/23 07:12 Dose 20 mg .ROUTE .STK-MED ONE Omeprazole Confirm 09/18/23 07:18 Omeprazole [address] Administered 09/18/23 07:19 Dose 20 mg .ROUTE .STK-MED ONE Omeprazole 40 mg 09/18/23 07:26 09/18/23 07:15 Omeprazole [address] PO 09/18/23 07:27 40 mg ONCE ONE Administration Allergies Allergy/AdvReac Type Severity Reaction Status Date / Time penicillin V Allergy Mild Rash Verified 09/17/23 17:31 Sulfa (Sulfonamide Allergy Mild Verified 09/17/23 17:31 Antibiotics) Objective - Infectious Disease Objective Vital Signs: Vital Signs - 24 hr 09/17/23 15:21 09/17/23 17:36 09/17/23 18:00 Temperature 100.6 F H Pulse Rate 110 H 93 Pulse Rate [Pulse Oximeter] Pulse Rate [Right Pulse Oximeter] 100 Respiratory Rate 18 Blood Pressure 168/72 H Blood Pressure [Right Arm] Blood Pressure [Right Upper Arm] 161/73 H Pulse Oximetry 91 92 98 Oxygen Delivery Method Room Air Nasal Cannula Oxygen Flow Rate 2 09/17/23 18:05 09/17/23 18:06 09/17/23 19:00 Temperature Pulse Rate 93 92 98 Pulse Rate [Pulse Oximeter] Pulse Rate [Right Pulse Oximeter] Respiratory Rate Blood Pressure Blood Pressure [Right Arm] Blood Pressure [Right Upper Arm] Pulse Oximetry 97 96 92 Oxygen Delivery Method Oxygen Flow Rate 09/17/23 19:03 09/17/23 19:04 09/17/23 19:30 Temperature 99.6 F Pulse Rate 95 95 89 Pulse Rate [Pulse Oximeter] Pulse Rate [Right Pulse Oximeter] Respiratory Rate Blood Pressure 117/57 L Blood Pressure [Right Arm] Blood Pressure [Right Upper Arm] Pulse Oximetry 96 94 96 Oxygen Delivery Method Nasal Cannula Nasal Cannula Oxygen Flow Rate 2 2 09/17/23 19:31 09/17/23 20:00 09/17/23 20:01 Temperature Pulse Rate 88 87 86 Pulse Rate [Pulse Oximeter] Pulse Rate [Right Pulse Oximeter] Respiratory Rate Blood Pressure 120/58 L 115/62 Blood Pressure [Right Arm] Blood Pressure [Right Upper Arm] Pulse Oximetry 96 96 96 Oxygen Delivery Method Nasal Cannula Nasal Cannula Nasal Cannula Oxygen Flow Rate 2 2 2 09/17/23 20:02 09/17/23 20:30 09/17/23 20:35 Temperature Pulse Rate 86 88 85 Pulse Rate [Pulse Oximeter] Pulse Rate [Right Pulse Oximeter] Respiratory Rate Blood Pressure Blood Pressure [Right Arm] Blood Pressure [Right Upper Arm] Pulse Oximetry 96 95 96 Oxygen Delivery Method Nasal Cannula Nasal Cannula Nasal Cannula Oxygen Flow Rate 2 2 2 09/17/23 21:00 09/17/23 21:36 09/17/23 22:00 Temperature Pulse Rate 83 83 84 Pulse Rate [Pulse Oximeter] Pulse Rate [Right Pulse Oximeter] Respiratory Rate Blood Pressure Blood Pressure [Right Arm] Blood Pressure [Right Upper Arm] Pulse Oximetry 98 96 99 Oxygen Delivery Method Nasal Cannula Nasal Cannula Nasal Cannula Oxygen Flow Rate 2 2 2 09/17/23 22:04 09/17/23 22:35 09/17/23 23:17 Temperature Pulse Rate 83 81 83 Pulse Rate [Pulse Oximeter] Pulse Rate [Right Pulse Oximeter] Respiratory Rate Blood Pressure Blood Pressure [Right Arm] Blood Pressure [Right Upper Arm] Pulse Oximetry 98 97 99 Oxygen Delivery Method Nasal Cannula Nasal Cannula Nasal Cannula Oxygen Flow Rate 2 2 2 09/17/23 23:43 09/17/23 23:44 09/18/23 00:00 Temperature Pulse Rate 81 82 Pulse Rate [Pulse Oximeter] Pulse Rate [Right Pulse Oximeter] Respiratory Rate Blood Pressure 139/61 Blood Pressure [Right Arm] Blood Pressure [Right Upper Arm] Pulse Oximetry 96 97 Oxygen Delivery Method Nasal Cannula Nasal Cannula Nasal Cannula Oxygen Flow Rate 2 2 09/18/23 00:30 09/18/23 00:57 09/18/23 00:59 Temperature Pulse Rate 82 86 Pulse Rate [Pulse Oximeter] Pulse Rate [Right Pulse Oximeter] Respiratory Rate Blood Pressure 143/68 H Blood Pressure [Right Arm] Blood Pressure [Right Upper Arm] Pulse Oximetry 97 97 96 Oxygen Delivery Method Nasal Cannula Nasal Cannula Nasal Cannula Oxygen Flow Rate 2 1 1 09/18/23 01:00 09/18/23 01:30 09/18/23 02:00 Temperature Pulse Rate 83 80 79 Pulse Rate [Pulse Oximeter] Pulse Rate [Right Pulse Oximeter] Respiratory Rate Blood Pressure Blood Pressure [Right Arm] Blood Pressure [Right Upper Arm] Pulse Oximetry 95 95 96 Oxygen Delivery Method Nasal Cannula Nasal Cannula Nasal Cannula Oxygen Flow Rate 1 1 1 09/18/23 02:30 09/18/23 03:00 09/18/23 04:00 Temperature Pulse Rate 77 78 82 Pulse Rate [Pulse Oximeter] Pulse Rate [Right Pulse Oximeter] Respiratory Rate Blood Pressure Blood Pressure [Right Arm] Blood Pressure [Right Upper Arm] Pulse Oximetry 94 93 96 Oxygen Delivery Method Nasal Cannula Room Air Oxygen Flow Rate 1 09/18/23 04:30 09/18/23 05:00 09/18/23 05:30 Temperature Pulse Rate 80 81 82 Pulse Rate [Pulse Oximeter] Pulse Rate [Right Pulse Oximeter] Respiratory Rate Blood Pressure Blood Pressure [Right Arm] Blood Pressure [Right Upper Arm] Pulse Oximetry 98 96 96 Oxygen Delivery Method Nasal Cannula Nasal Cannula Nasal Cannula Oxygen Flow Rate 1 1 1 09/18/23 05:45 09/18/23 05:46 09/18/23 06:00 Temperature Pulse Rate 81 87 81 Pulse Rate [Pulse Oximeter] Pulse Rate [Right Pulse Oximeter] Respiratory Rate 18 Blood Pressure 122/71 Blood Pressure [Right Arm] Blood Pressure [Right Upper Arm] Pulse Oximetry 96 91 94 Oxygen Delivery Method Nasal Cannula Nasal Cannula Nasal Cannula Oxygen Flow Rate 1 09/18/23 06:30 09/18/23 07:00 09/18/23 07:30 Temperature Pulse Rate 84 81 88 Pulse Rate [Pulse Oximeter] Pulse Rate [Right Pulse Oximeter] Respiratory Rate Blood Pressure Blood Pressure [Right Arm] Blood Pressure [Right Upper Arm] Pulse Oximetry 95 96 90 Oxygen Delivery Method Nasal Cannula Nasal Cannula Nasal Cannula Oxygen Flow Rate 09/18/23 08:00 09/18/23 09:32 09/18/23 09:32 Temperature 97.6 F Pulse Rate 85 Pulse Rate [Pulse Oximeter] 86 Pulse Rate [Right Pulse Oximeter] Respiratory Rate 20 20 Blood Pressure Blood Pressure [Right Arm] 111/64 Blood Pressure [Right Upper Arm] Pulse Oximetry 96 94 94 Oxygen Delivery Method Nasal Cannula Nasal Cannula Nasal Cannula Oxygen Flow Rate 1 1 09/18/23 11:08 Temperature 98.9 F Pulse Rate Pulse Rate [Pulse Oximeter] 78 Pulse Rate [Right Pulse Oximeter] Respiratory Rate 24 Blood Pressure Blood Pressure [Right Arm] 126/65 Blood Pressure [Right Upper Arm] Pulse Oximetry 93 Oxygen Delivery Method Nasal Cannula Oxygen Flow Rate 1 Narrative: Patient was not seen or examined. Results - Infectious Disease Results Labs: 09/17/23 17:10 Blood Blood Culture - Pending 09/17/23 16:57 Blood Blood Culture - Pending Laboratory Tests 09/18/23 09/17/23 09/17/23 Range/Units 02:15 17:10 16:55 WBC (4.50-11.00) K/uL RBC (4.00-5.20) m/uL Hgb (12.0-16.0) gm/dL Hct (33.0-51.0) % MCV (80-100) fL MCH (26-34) pg MCHC (32-36) gm/dL RDW Coeff of [place] (11.5-15.5) % Plt Count (140-440) K/uL Neut % (Auto) (42.0-72.0) % Lymph % (Auto) (20-44) % [place] % (Auto) (0.0-11.0) % Eos % (Auto) (0.0-7.0) % Baso % (Auto) (0.0-3.0) % Neut # (Auto) (1.7-7.0) K/uL Lymph # (Auto) (0.90-2.90) K/uL [place] # (Auto) (0.00-0.90) K/UL Eos # (Auto) (0.00-0.50) K/uL Baso # (Auto) (0.00-0.30) K/uL Abs Immat Gran (auto) (0.00-0.30) K/uL Imm/Tot Granulo (auto) % D-Dimer Quant (PE/DVT) (0.00-0.50) ug/ml Sodium (135-149) mmol/L Potassium (3.6-5.1) mmol/L Chloride (96-114) mmol/L Carbon Dioxide (20-32) mmol/L Anion Gap (7-15) mEq/L BUN (7-30) mg/dL Creatinine (0.5-1.5) mg/dL Estimated Creat Clear Estimated GFR ml/min Glucose (60-115) mg/dL Lactate (0.5-1.9) mmol/L Calcium (8.4-10.6) mg/dL C-Reactive Protein (0.5-1.0) mg/dL NT-Pro-B Natriuret Pep Cancelled pg/mL Urine L. pneumophilia Ag L. pneumo Negative (Negative) Urine Strep pneumoniae Ag S. pneumo Negative (Negative) SARS-CoV-2 Ag (Rapid) POSITIVE A (Negative) 09/17/23 Range/Units 16:55 WBC 10.08 (4.50-11.00) K/uL RBC 4.33 (4.00-5.20) m/uL Hgb 12.4 (12.0-16.0) gm/dL Hct 38.2 (33.0-51.0) % MCV 88 (80-100) fL MCH 29 (26-34) pg MCHC 33 (32-36) gm/dL RDW Coeff of [place] 14.4 (11.5-15.5) % Plt Count 417 (140-440) K/uL Neut % (Auto) 89.8 H (42.0-72.0) % Lymph % (Auto) 3.6 L (20-44) % [place] % (Auto) 6.3 (0.0-11.0) % Eos % (Auto) 0.0 (0.0-7.0) % Baso % (Auto) 0.1 (0.0-3.0) % Neut # (Auto) 9.10 H (1.7-7.0) K/uL Lymph # (Auto) 0.40 L (0.90-2.90) K/uL [place] # (Auto) 0.60 (0.00-0.90) K/UL Eos # (Auto) 0.00 (0.00-0.50) K/uL Baso # (Auto) 0.01 (0.00-0.30) K/uL Abs Immat Gran (auto) 0.02 (0.00-0.30) K/uL Imm/Tot Granulo (auto) 0.2 % D-Dimer Quant (PE/DVT) 1.32 H (0.00-0.50) ug/ml Sodium 132 L (135-149) mmol/L Potassium 4.2 (3.6-5.1) mmol/L Chloride 95 L (96-114) mmol/L Carbon Dioxide 28 (20-32) mmol/L Anion Gap 9 (7-15) mEq/L BUN 12 (7-30) mg/dL Creatinine 0.5 (0.5-1.5) mg/dL Estimated Creat Clear 52.05 Estimated GFR 100 ml/min Glucose 117 H (60-115) mg/dL Lactate 1.2 (0.5-1.9) mmol/L Calcium 9.2 (8.4-10.6) mg/dL C-Reactive Protein 8.2 H (0.5-1.0) mg/dL NT-Pro-B Natriuret Pep 167 pg/mL Urine L. pneumophilia Ag (Negative) Urine Strep pneumoniae Ag (Negative) SARS-CoV-2 Ag (Rapid) (Negative) Impression & Recommendations Recommendations Impression & Recommendations: 73 yo F with history of thoracotomy for removal of thymoma? at [facility], COVID-19 diagnosed on 08/03/23, recent treatment for Legionella pneumonia who presented on 09/17 with persistent hypoxia, fevers. At the time of her COVID-19 diagnosis, she had fever, cough, dyspnea, fatigue, malaise. The fever resolved after ~4 days. Her other symptoms persisted. On 08/15, she was started on doxycycline by her PCP without improvement. She had recurrence of the fever with worsening dyspnea. She was admitted to [place] from 09/04-09/08 with fever, hypoxia, and CTA chest showing diffuse patchy GGO throughout lower lobes and to a lesser degree the upper lobes and RML. Her COVID-19 test remained positive at that time (both PCR and antigen). She was started on cefepime and azithromycin. Urine Legionella Ag positive. ID was consulted and recommended levofloxacin 750 mg daily to complete a 7 day course of treatment for CAP as well as possible Legionella. It appears the pt was discharged on 09/08 on levofloxacin 500 mg PO q24h to complete a 10 day course (finished ~09/13-09/14). She was also given 4 doses of solumedrol, then transitioned to a prednisone taper (20 mg 09/09-09/12, 10 mg 09/13-09/16, 5 mg 09/17-09/20). Per discussion with hospitalist, pt began feeling worse again after finishing the levofloxacin course. She had presented to the ED on 09/14 reporting shortness of breath, hypoxia, recurrence of fever. Pt had a fever on 09/11 to 101, then again on 09/14 to 102.3. She reported desaturating into the low 70s with exertion. Labs showed no leukocytosis. CXR showed bilateral lower lobe pneumonia not significantly changed. She was discharged from the ED. Pt then saw her PCP on 09/17 and was sent back to the ED due to hypoxia to 81-87%. On presentation, pt was febrile to 100.6, tachypneic, requiring 2 L NC. CTA chest showed no PE, and worsening multifocal basilar predominant ground glass consolidations. Pt reported she is not coughing up significant sputum, denied hemoptysis, chest pain. Also reports sores in her mouth that are making it difficult for her to eat. Pt was given a dose of levofloxacin. ID was consulted. Pt's antibiotics were switched to vanc, cefepime, azithromycin. Primary team has attempted to transfer the pt, without any success thus far. Micro: 09/18 Urine Legionella Ag: neg 09/18 Urine Strep Ag: neg 09/17 BCx x2: pending 09/17 Rapid COVID-19 Ag: positive 09/14 Urine Legionella Ag: neg 09/14 Urine Strep Ag: neg 09/14 COVID-19 positive, flu/RSV negative 09/14 Rapid COVID-19 Ag: positive 09/14 BCx x2: NGTD 09/05 MRSA nares: neg 09/04 Urine Legionella Ag: positive 09/04 Urine Strep Ag: neg 09/04 BCx x2: NG 09/04 COVID-19 positive, flu/RSV negative 09/04 Rapid COVID-19 Ag: positive Abx: Vanc 09/18 - Cefepime 09/18 - Azithro 09/18 - Levofloxacin 09/18 Problems: #Acute hypoxic respiratory failuare #Pneumonia #Recent possible Legionella pneumonia #COVID-19 (08/03/23) #Antibiotic allergies: penicillin (Rash), sulfa (unknown) Discussion: Pt with initial COVID-19 infection in early July with initial improvement, but subsequent recurrence of fevers, hypoxia that did not resolved with doxycycline in late July, levofloxacin x 10 days through 09/13 for possible Legionella pneumonia (of note, underdosed). She does not have a history of immunosuppression--did have recent steroid course, but was not a prolonged high dose that would predispose her to PJP pneumonia. Could consider continued Legionella pneumonia (despite negative urine Legionella Ag) in the setting of underdosed levofloxacin, other bacterial pneumonia, viral pneumonia, fungal pneumonia, or non-infectious ARDS [id number]. There are cases of pulmonary Aspergillosis after COVID-19. Recommendations: -Continue vanc, cefepime, azithromycin -Send MRSA nares. If negative, can discontinue vanc -Bacterial and fungal sputum cultures if pt able to make sputum -Send beta D glucan, Aspergillus Ag (aka galactomannan), urine Histo Ag -Can send full respiratory viral panel if available, to evaluate for a non COVID-19/flu/RSV viral infection -Ordered urine histoplasma Ag -Will assess for response to antibiotics. May consider antifungal therapy if no improvement -Consider transfer to hospital that has pulmonology service that can perform bronchoscopy Will continue to follow. Please page the [facility] Call Center ([phone]) with further questions.
[2023-09-18] MEDS: predniSONE 5 MG TABLET PO (15:45)
[2023-09-18] MEDS: ENOXAPARIN 40 MG/0.4 ML INJ SUBCUT (21:33)
[2023-09-18] MEDS: SODIUM CHLORIDE 0.9 % (FLUSH) 10 ML SYRINGE 5 ML IVF (21:33)
[2023-09-19] VITALS (7 sets, daily range): BP systolic 112–134; BP diastolic 62–79; PULSE 79–94; RESP 18–28; TEMP 36.5–39.2; O2SAT 87–97
[2023-09-19] MEDS: CEFEPIME HCL 2 GM in 0.9 % SODIUM CHLORIDE Mini-bag 100 ML IVPB ×2 (03:00→15:27)
[2023-09-19] MEDS: OMEPRAZOLE 20 MG CAPSULE DR PO (06:12)
--- NOTE | 2023-09-19 07:34 | PC.NURSE ---
Shift note [id number]: Pt alert & oriented x 4 and able to make needs known. She is independent with transferring/ambulation in room. Pt on oxygen 1 LPM per NC when at rest and 3 LPM with activity as pt desaturates with movement. Pt continent of bladder. IV to R wrist SL. Pt requested PRN Tylenol for discomfort to this area. IV patent and flushed without issue throughout the shift. Pt continues to await transfer. Pt has been afebrile throughout the shift.
[2023-09-19 07:52] LABS: Hematocrit 33.8 % (33.0-51.0); Immature Granulocytes Abs Auto 0.01 K/uL (0.00-0.30); Immature Granulocytes Pct Auto 0.2 %; Lymphocytes Percent Auto 11.7 % (20-44); Mean Corpuscular HGB Conc 33 gm/dL (32-36); Mean Corpuscular Hemoglobin 29 pg (26-34); Mean Corpuscular Volume 88 fL (80-100); Monocytes Percent Auto 7.7 % (0.0-11.0); Neutrophils Percent Auto 80.4 % (42.0-72.0); Platelet Count* 342 K/uL (140-440); RDW Coefficient of Variation % 14.4 % (11.5-15.5); Red Blood Count 3.85 m/uL (4.00-5.20); White Blood Count* 6.13 K/uL (4.50-11.00)
[2023-09-19 08:00] LABS: Slide Review Reflex No
[2023-09-19 08:07] LABS: Chloride* 97 mmol/L (96-114); Potassium* 4.1 mmol/L (3.6-5.1); Sodium* 133 mmol/L (135-149)
[2023-09-19 08:09] LABS: Creatinine* 0.5 mg/dL (0.5-1.5); Est. Creatinine Clearance* 51.47; Estimated Glomerular Filt Rate 100 ml/min
[2023-09-19 08:10] LABS: Anion Gap 9 mEq/L (7-15); Blood Urea Nitrogen* 12 mg/dL (7-30); Carbon Dioxide* 27 mmol/L (20-32); Glucose* 99 mg/dL (60-115)
[2023-09-19 08:11] LABS: Calcium* 8.7 mg/dL (8.4-10.6)
[2023-09-19] MEDS: ACETAMINOPHEN 325 MG TABLET 650 MG PO ×3 (08:28→22:25)
[2023-09-19] MEDS: predniSONE 5 MG TABLET PO (08:28)
[2023-09-19] MEDS: MULTIVITAMIN/MINERALS 1 TABLET 1 TAB PO (08:28)
[2023-09-19] MEDS: LACTOBACILLUS ACIDOPHILUS 1 TABLET 1 TAB PO ×3 (08:28→18:21)
[2023-09-19] MEDS: SODIUM CHLORIDE 0.9 % (FLUSH) 10 ML SYRINGE 5 ML IVF ×2 (08:29→20:13)
[2023-09-19 09:41] LABS: C Reactive Protein* 12.3 mg/dL (0.5-1.0)
--- NOTE | 2023-09-19 12:14 | P.IMPN_ITS ---
Progress Note: A&P Assessment and plan (1) Pneumonia: Problem details: Getting worse despite relatively aggressive evaluation and treatment over the past month. Discussed with Infectious Disease consult. Will treat with Zithromax, vancomycin pending MRSA swab and cefepime. Obtain testing for Aspergillus and other fungal infections. Patient would likely benefit from bronchoscopy to evaluate. Currently unable to transferred due to lack of bed availability in the region Status: Acute (2) Hypoxia: Problem details: Due to pneumonia. Stable on nasal cannula oxygen Status: Acute (3) Legionella pneumonia: Problem details: Total doses of 10 days of antibiotics, Levaquin 500 mg q.day at discharge. Now on Zithromax Prednisone continued taper at discharge. Status: Acute (4) COVID-19: Problem details: Symptomatic with a positive PCR since early July. Antigen still positive - cross reactive? Status: Acute (5) Oral ulcer: Problem details: Magic mouthwash and monitor Status: Acute Plan Continue in hospital for antibiotics, oxygen supplementation, ongoing attempts to transfer for higher level of care including bronchoscopy and Infectious Disease consult. Time Spent With Patient Total time spent: Total time spent today is 55 minutes, 35 minutes in coordination of care and discussing with patient and other providers transfer and management of pneumonia Subjective Date Seen: 09/19/23 Interval history: Alexia Phillips is a 73 year old female admitted to the hospital with worsening pneumonia. Patient initially became ill at the beginning of July 2023. She had fever cough and dyspnea On August 03 she had a positive COVID test. After few days her fever went away but she continued to have cough and dyspnea. On August 15 she was seen in clinic and prescribed doxycycline for 10 days. She reports no improvement from that. On September 04 she presented to the emergency room and was admitted for bilateral pneumonia. Chest CT at that time showed no pulmonary embolism. She had diffuse patchy ground-glass opacities throughout the lower lobes and to a lesser degree the upper lobes and right middle lobe. She had a positive PCR test for COVID and a negative test for influenza and RSV. MRSA nasal swab was negative. Legionella antigen test was positive. Pneumococcal antigen test was negative. She was treated with cefepime and azithromycin. She was started on IV Solu-Medrol and then discharged on prednisone taper starting at 20 mg and Levaquin on September 08 she was not on oxygen at that time. She received a total of a 10 day course of Levaquin completed on September 14, 4 days ago. She had weaned down to prednisone 5 mg daily as of yesterday. She came back to the emergency room on September 14 reporting recurrence of fevers and hypoxia with any activity. Her her O2 sats at home drop into the 70s with activity. She was discharged home and came back to the emergency room on September 17. She continues to have fevers most days for the last few days. She is not coughing up significant sputum. There is no blood in her sputum. She is not having chest pain. No abdominal pain. She does have sores in her mouth that are making it difficult to eat. No bowel or bladder problems. No rash. Overnight she reports feeling about the same. She feels much better on oxygen but still gets very dyspneic with any activity such as walking to the bathroom. She has a dry nonproductive cough. She has a fever again this morning as has been typical for her at home. Attempts to transfer the patient remained unsuccessful due to no available beds at tertiary care facilities in the region. Exam Narrative: Exam Narrative: She is alert and appears in no distress sitting with supplemental oxygen. Oropharynx still with ulcers bilaterally including apparently ulcers at the opening of Stensen's ducts in her oral mucosa. Neck is supple without adenopathy. Respirations with few basilar crackles. Fair air exchange all lung wood. No wheezing. Cardiovascular: S1, S2, regular rate and rhythm. Abdomen is soft without tenderness or mass. Extremities without edema. Skin is without rash. Const: Vital Signs, click to edit/add: Vital Signs - 24 hr 09/18/23 15:00 09/18/23 15:00 09/18/23 15:00 Temperature 99.3 F Pulse Rate [Pulse Oximeter] 93 93 Respiratory Rate 20 20 20 Blood Pressure [Le ft Arm] Blood Pressure [Ri ght Arm] 117/65 Pulse Oximetry 92 92 Oxygen Delivery Me thod Nasal Cannula Nasal Cannula Oxygen Flow Rate 1 1 09/18/23 19:35 09/18/23 23:00 09/18/23 23:45 Temperature 99.3 F Pulse Rate [Pulse Oximeter] 91 91 Respiratory Rate 20 20 20 Blood Pressure [Le ft Arm] 128/58 L Blood Pressure [Ri ght Arm] Pulse Oximetry 92 94 Oxygen Delivery Me thod Nasal Cannula Nasal Cannula Oxygen Flow Rate 1 1 09/18/23 23:45 09/19/23 03:06 09/19/23 08:28 Temperature 98.3 F 98.6 F 102.6 F H Pulse Rate [Pulse Oximeter] 91 89 Respiratory Rate 20 18 Blood Pressure [Le ft Arm] 116/61 134/67 Blood Pressure [Ri ght Arm] Pulse Oximetry 94 96 Oxygen Delivery Me thod Nasal Cannula Nasal Cannula Oxygen Flow Rate 1 1 Documenting provider has reviewed patient's vital signs: yes Labs Labs: Laboratory Results - last 24 hr 09/19/23 07:43 WBC 6.13 RBC 3.85 L Hgb 11.0 L Hct 33.8 MCV 88 MCH 29 MCHC 33 RDW Coeff of [place] 14.4 Plt Count 342 Neut % (Auto) 80.4 H Lymph % (Auto) 11.7 L [place] % (Auto) 7.7 Eos % (Auto) 0.0 Baso % (Auto) 0.0 Neut # (Auto) 4.90 Lymph # (Auto) 0.70 L [place] # (Auto) 0.50 Eos # (Auto) 0.00 Baso # (Auto) 0.00 Abs Immat Gran (auto) 0.01 Imm/Tot Granulo (auto) 0.2 Sodium 133 L Potassium 4.1 Chloride 97 Carbon Dioxide 27 Anion Gap 9 BUN 12 Creatinine 0.5 Estimated Creat Clear 51.47 Estimated GFR 100 Glucose 99 Calcium 8.7 C-Reactive Protein 12.3 H
[2023-09-19] MEDS: AZITHROMYCIN 250 MG TABLET 500 MG PO (12:42)
[2023-09-19] MEDS: estradioL 1 MG TABLET 0.5 MG PO (14:41)
--- NOTE | 2023-09-19 15:41 | PC.NURSE ---
TEMP THIS AM OF 102.6 WHICH RESOLVED AFTER TYLENOL. SOB WITH EXERTION. O2 SATS THIS AM 87%1L RA WHEN RETURNING FROM BATHROOM. PATIENT INSTRUCTED TO CALL STAFF WHEN UP TO BATHROOM TO INCREASE O2 FOR ACTIVITY. UP AD GELA IN ROOM. INTERMITTENT NON-PRODUCTIVE COUGH. PATIENT GIVEN SALINE NEB PER DR. VANG REQUEST TO ATTEMPT TO INDUCE SPUTUM. SALINE NEB ADMINISTERED BU PATIENT ABLE TO PRODUCE ANY SPUTUM WITH COUGHING. DENIES PAIN OR N/V. PATIENT DID HAVE 2 BM'S TODAY.
[2023-09-19] MEDS: SENNOSIDES/DOCUSATE TABLET PO (18:21)
--- NOTE | 2023-09-19 19:00 | PC.NURSE ---
Nursing Care Hours: [id number] Pt this shift calm but appears slightly anxious. VSS on 1L. Fine crackles to RLL, left lobe diminished. Diaphoretic, gown and linens changed. Discussed the effort of breathing, and requiring extra fluids and calories. U/o marco antonio but clear. C/o headache, treated with acetaminophen. IV running ABX, then saline locked. Declined mouth wash until after oral cares HS.
[2023-09-19] MEDS: ENOXAPARIN 40 MG/0.4 ML INJ SUBCUT (20:13)
[2023-09-19] MEDS: DIPHEN/LIDO/ALUM/MAG/SIMETH 5 ML SUSPENSION MUCOUS MEM (20:14)
--- NOTE | 2023-09-19 20:27 | PC.NURSE ---
Call placed to [facility] by Dr. Durand, no beds available today, will assess again tomorrow. [facility] [place] [place] called [facility] and patient is currently still on waitlist as no bed availability.
--- NOTE | 2023-09-19 21:47 | PC.NURSE ---
[facility] called to check in, no beds at this time but they will keep patient on list and will update again in about 8 hours.
[2023-09-20] VITALS (8 sets, daily range): BP systolic 114–146; BP diastolic 52–84; PULSE 81–107; RESP 20–26; TEMP 36.6–38.6; O2SAT 92–97
[2023-09-20] MEDS: CEFEPIME HCL 2 GM in 0.9 % SODIUM CHLORIDE Mini-bag 100 ML IVPB ×2 (02:38→14:28)
[2023-09-20] MEDS: OMEPRAZOLE 20 MG CAPSULE DR PO (06:12)
[2023-09-20] MEDS: ACETAMINOPHEN 325 MG TABLET 650 MG PO ×3 (06:31→23:00)
[2023-09-20 06:44] LABS: Hematocrit 31.6 % (33.0-51.0); Hemoglobin* 10.4 gm/dL (12.0-16.0); Immature Granulocytes Abs Auto 0.01 K/uL (0.00-0.30); Immature Granulocytes Pct Auto 0.2 %; Lymphocytes Percent Auto 11.6 % (20-44); Mean Corpuscular HGB Conc 33 gm/dL (32-36); Mean Corpuscular Hemoglobin 29 pg (26-34); Mean Corpuscular Volume 88 fL (80-100); Monocytes Percent Auto 8.1 % (0.0-11.0); Neutrophils Percent Auto 80.1 % (42.0-72.0); Platelet Count* 339 K/uL (140-440); RDW Coefficient of Variation % 14.4 % (11.5-15.5); Red Blood Count 3.58 m/uL (4.00-5.20); White Blood Count* 5.54 K/uL (4.50-11.00)
[2023-09-20 06:48] LABS: Slide Review Reflex No
[2023-09-20 06:56] LABS: Chloride* 98 mmol/L (96-114); Potassium* 4.1 mmol/L (3.6-5.1); Sodium* 134 mmol/L (135-149)
[2023-09-20 06:59] LABS: Anion Gap 7 mEq/L (7-15); Blood Urea Nitrogen* 13 mg/dL (7-30); Carbon Dioxide* 29 mmol/L (20-32); Creatinine* 0.5 mg/dL (0.5-1.5); Est. Creatinine Clearance* 50.99; Estimated Glomerular Filt Rate 100 ml/min; Glucose* 96 mg/dL (60-115)
--- NOTE | 2023-09-20 06:59 | PC.NURSE ---
19-07: pleasant and cooperative. Dry nonproductive cough. Titrated O2 to RA at 2240, O2 sats >88% at rest. Pt did desat to 83% after ambulation, did rebound quickly with rest. Pt woke around 0300 with her clothes damp, stated this has been happening frequently over the last couple of weeks, fresh linens & grown provided. Pt woke around 0600 & was having a difficult time keeping O2 sats up & was coughing frequently, placed 0.5L O2 via NC to keep O2 sats >88%. Pt stated she felt warm this am, oral temp 99.6 - prn Tylenol given.
[2023-09-20 07:00] LABS: Calcium* 8.5 mg/dL (8.4-10.6)
[2023-09-20] MEDS: LACTOBACILLUS ACIDOPHILUS 1 TABLET 1 TAB PO ×2 (09:16→17:16)
[2023-09-20] MEDS: MULTIVITAMIN/MINERALS 1 TABLET 1 TAB PO (09:16)
[2023-09-20] MEDS: SODIUM CHLORIDE 0.9 % (FLUSH) 10 ML SYRINGE 5 ML IVF ×2 (09:18→23:01)
--- NOTE | 2023-09-20 11:02 | PM.IMPN1 ---
Progress Note: A&P Assessment and plan (1) Pneumonia: Problem details: Getting worse despite relatively aggressive evaluation and treatment over the past month. Discussed with Infectious Disease consult. Will treat with Zithromax, vancomycin pending MRSA swab and cefepime. Obtain testing for Aspergillus and other fungal infections. Patient would likely benefit from bronchoscopy to evaluate. Currently unable to transferred due to lack of bed availability in the region. Status: Acute (2) Hypoxia: Problem details: Due to pneumonia. Stable on nasal cannula oxygen Status: Acute (3) Legionella pneumonia: Problem details: Total doses of 10 days of antibiotics, Levaquin 500 mg q.day at discharge. Now on Zithromax Status: Acute (4) COVID-19: Problem details: Symptomatic with a positive PCR since early July. Chest CT appearance similar to that of severe COVID pneumonia from 2 or 3 years ago. Status: Acute (5) Oral ulcer: Problem details: Magic mouthwash and monitor Status: Acute Plan Continue in-hospital for management of hypoxic respiratory failure and pneumonia. Because she still having fevers I am inclined to continue cefepime and Zithromax. Vancomycin discontinued because MRSA nasal swab is negative again. Time Spent With Patient Total time spent: Total time spent today is 40 minutes, 30 minutes in coordination of care and discussing with patient other providers ongoing evaluation management and working on transfer. Subjective Date Seen: 09/20/23 Interval history: Alexia Phillips is a 73 year old female admitted to the hospital with worsening pneumonia. Patient initially became ill at the beginning of July 2023. She had fever cough and dyspnea On August 03 she had a positive COVID test. After few days her fever went away but she continued to have cough and dyspnea. On August 15 she was seen in clinic and prescribed doxycycline for 10 days. She reports no improvement from that. On September 04 she presented to the emergency room and was admitted for bilateral pneumonia. Chest CT at that time showed no pulmonary embolism. She had diffuse patchy ground-glass opacities throughout the lower lobes and to a lesser degree the upper lobes and right middle lobe. She had a positive PCR test for COVID and a negative test for influenza and RSV. MRSA nasal swab was negative. Legionella antigen test was positive. Pneumococcal antigen test was negative. She was treated with cefepime and azithromycin. She was started on IV Solu-Medrol and then discharged on prednisone taper starting at 20 mg and Levaquin on September 08. She was not on oxygen at that time. She received a total of a 10 day course of Levaquin completed on September 14, 4 days ago. She had weaned down to prednisone 5 mg daily as of the day September 17. She came back to the emergency room on September 14 reporting recurrence of fevers and hypoxia with any activity. Her her O2 sats at home drop into the 70s with activity. She was discharged home and came back to the emergency room on September 17. She continues to have fevers most days for the last few days. She is not coughing up significant sputum. There is no blood in her sputum. She is not having chest pain. No abdominal pain. She does have sores in her mouth that are making it difficult to eat. No bowel or bladder problems. No rash. Overnight she reports feeling about the same. She feels much better on oxygen but still gets very dyspneic with any activity such as walking to the bathroom. She has a dry nonproductive cough. Unable to produce sputum for culture. She has a fever again this morning as has been typical for her at home. Attempts to transfer the patient remained unsuccessful due to no available beds at tertiary care facilities in the region. Phone consultation with Infectious Disease recommended transfer for inpatient pulmonary and ID evaluation. If patient clinically deteriorates or if evidence on testing for fungal infection consider starting voriconazole. Phone consultation with Pulmonary/Critical Care suggests that this may be primarily COVID with developing COVID pulmonary fibrosis. Also recommending transfer for pulmonary and ID consultation. Exam Narrative: Exam Narrative: She is alert and appears in mild respiratory distress on room air. She has mild increased rate and work of breathing. I do see her after she had just walked to the bathroom and she is dyspneic. Respirations with a few scattered crackles. No wheezing. Fair air exchange all lung wood. Cardiovascular: S1, S2, regular rate and rhythm. Abdomen is soft without tenderness or mass. Extremities without edema. Const: Vital Signs, click to edit/add: Vital Signs - 24 hr 09/19/23 16:09 09/19/23 16:09 09/19/23 16:09 Temperature 98.7 F Pulse Rate [Pulse Oximeter] 79 79 Respiratory Rate 18 28 H 28 H Blood Pressure [Ri ght Arm] 118/64 Pulse Oximetry 94 94 Oxygen Delivery Me thod Nasal Cannula Nasal Cannula Oxygen Flow Rate 1 1 09/19/23 19:00 09/19/23 22:41 09/19/23 22:41 Temperature 98.2 F Pulse Rate [Pulse Oximeter] 80 Respiratory Rate 28 H 26 H Blood Pressure [Ri ght Arm] 127/65 Pulse Oximetry 90 93 Oxygen Delivery Me thod Nasal Cannula Room Air Oxygen Flow Rate 09/19/23 22:41 09/20/23 03:00 09/20/23 06:31 Temperature 97.7 F 98 F 99.6 F Pulse Rate [Pulse Oximeter] 84 85 Respiratory Rate 26 H 26 H Blood Pressure [Ri ght Arm] 132/79 146/84 H Pulse Oximetry 97 92 Oxygen Delivery Me thod Nasal Cannula Room Air Oxygen Flow Rate 1 09/20/23 07:00 09/20/23 07:00 09/20/23 07:00 Temperature 98.3 F Pulse Rate [Pulse Oximeter] 107 H 90 Respiratory Rate 22 26 H 22 Blood Pressure [Ri ght Arm] 125/62 Pulse Oximetry 92 93 Oxygen Delivery Me thod Room Air Room Air Oxygen Flow Rate 1 0.5 Documenting provider has reviewed patient's vital signs: yes Labs Labs: Laboratory Results - last 24 hr 09/20/23 06:08 WBC 5.54 RBC 3.58 L Hgb 10.4 L Hct 31.6 L MCV 88 MCH 29 MCHC 33 RDW Coeff of [place] 14.4 Plt Count 339 Neut % (Auto) 80.1 H Lymph % (Auto) 11.[address] [place] % (Auto) 8.1 Eos % (Auto) 0.0 Baso % (Auto) 0.0 Neut # (Auto) 4.40 Lymph # (Auto) 0.[address] [place] # (Auto) 0.40 Eos # (Auto) 0.00 Baso # (Auto) 0.00 Abs Immat Gran (auto) 0.01 Imm/Tot Granulo (auto) 0.2 Sodium 134 L Potassium 4.1 Chloride 98 Carbon Dioxide 29 Anion Gap 7 BUN 13 Creatinine 0.5 Estimated Creat Clear 50.99 Estimated GFR 100 Glucose 96 Calcium 8.5
--- NOTE | 2023-09-20 13:25 | P.IMPN_ITS ---
Progress Note: A&P Assessment and plan (1) Pneumonia: Problem details: Getting worse despite relatively aggressive evaluation and treatment over the past month. Discussed with Infectious Disease consult. Will treat with Zithromax, vancomycin (discontinued) and cefepime. Obtain testing for As pergillus and other fungal infections. Patient would likely benefit from bronchoscopy to evaluate. Currently unable to transferred due to lack of bed availability in the region 09/21: -fevers past 48 hours -MRSA negative, BC x2 negative, strep pneumo/Legionella negative, UA unremarkable -continue cefepime and azithromycin, vancomycin discontinued. PICC line placed 09/21 -Aspergillus and histoplasmosis pending -Remains on wait list for transfer to [facility]. No bed availability yet at [place] Status: Acute (2) Legionella pneumonia: Problem details: History of 09/04/23 Total doses of 10 days of antibiotics, Levaquin 500 mg q.day at discharge. Now on Zithromax Status: Acute (3) COVID-19: Problem details: Symptomatic with a positive PCR since early July. Chest CT appearance similar to that of severe COVID pneumonia from 2 or 3 years ago. Status: Acute (4) Hypoxia: Problem details: Due to pneumonia. Stable on nasal cannula oxygen, 0.5-1L, at 97-98% Status: Acute (5) Oral ulcer: Problem details: Magic mouthwash and monitor Status: Acute Plan Continue in-hospital for management of hypoxic respiratory failure and pneumon ia. Awaiting transfer for pulmonology and bronchoscopy. [facility] waitlist, no availability at [place] Time Spent With Patient Total time spent: Total time spent caring for the patient today was 45 minutes. This includes time spent for the visit reviewing the chart, time spent during the visit, time spent after the visit and documentation and planning in coordination of care. Subjective Date Seen: 09/21/23 Interval history: Patient remains essentially unchanged. Continues to feel as though it is hard to breathe when talking or ambulating. Saturations remain in the upper 90s. Has had fevers over the last 48 hours, 101.4? last night, with sweats. Denies headache or dizziness. No nausea or vomiting. Tolerating orals. Awaiting transfer for pulmonology and bronchoscopy. Exam Narrative: Exam Narrative: PHYSICAL EXAM General: Pleasant, conversant, NAD HEENT: Normocephalic, atraumatic, sclera white, EOMI, oral mucosa moist Cardiovascular: RRR, S1S2. No pitting edema Pulmonary: Bilateral lungs with decent breath sounds, somewhat coarse. No wheezing. Halting speech, mild dyspnea. Neurological: Alert, answering questions appropriately, cranial nerves intact, no focal findings Extremities: No gross joint deformity or swelling. AROMI. Neurovascularly intact Skin: Warm, dry. Const: Vital Signs, click to edit/add: Vital Signs - 24 hr 09/19/23 16:09 09/19/23 16:09 09/19/23 16:09 Temperature 98.7 F Pulse Rate [Pulse Oximeter] 79 79 Respiratory Rate 18 28 H 28 H Blood Pressure [Ri ght Arm] 118/64 Pulse Oximetry 94 94 Oxygen Delivery Me thod Nasal Cannula Nasal Cannula Oxygen Flow Rate 1 1 09/19/23 19:00 09/19/23 22:41 09/19/23 22:41 Temperature 98.2 F Pulse Rate [Pulse Oximeter] 80 Respiratory Rate 28 H 26 H Blood Pressure [Ri ght Arm] 127/65 Pulse Oximetry 90 93 Oxygen Delivery Me thod Nasal Cannula Room Air Oxygen Flow Rate 09/19/23 22:41 09/20/23 03:00 09/20/23 06:31 Temperature 97.7 F 98 F 99.6 F Pulse Rate [Pulse Oximeter] 84 85 Respiratory Rate 26 H 26 H Blood Pressure [Ri ght Arm] 132/79 146/84 H Pulse Oximetry 97 92 Oxygen Delivery Me thod Nasal Cannula Room Air Oxygen Flow Rate 1 09/20/23 07:00 09/20/23 07:00 09/20/23 07:00 Temperature 98.3 F Pulse Rate [Pulse Oximeter] 107 H 90 Respiratory Rate 22 26 H 22 Blood Pressure [Ri ght Arm] 125/62 Pulse Oximetry 92 93 Oxygen Delivery Me thod Room Air Room Air Oxygen Flow Rate 1 0.5 Labs Labs: Laboratory Results - last 24 hr 09/20/23 06:08 WBC 5.54 RBC 3.58 L Hgb 10.4 L Hct 31.6 L MCV 88 MCH 29 MCHC 33 RDW Coeff of [place] 14.4 Plt Count 339 Neut % (Auto) 80.1 H Lymph % (Auto) 11.6 L [place] % (Auto) 8.1 Eos % (Auto) 0.0 Baso % (Auto) 0.0 Neut # (Auto) 4.40 Lymph # (Auto) 0.60 L [place] # (Auto) 0.40 Eos # (Auto) 0.00 Baso # (Auto) 0.00 Abs Immat Gran (auto) 0.01 Imm/Tot Granulo (auto) 0.2 Sodium 134 L Potassium 4.1 Chloride 98 Carbon Dioxide 29 Anion Gap 7 BUN 13 Creatinine 0.5 Estimated Creat Clear 50.99 Estimated GFR 100 Glucose 96 Calcium 8.5
--- NOTE | 2023-09-20 14:06 | W.PM.IDPRG_ITS ---
Visit Information Visit Information Date: 09/20/23 Visit Information: Patient was not seen. Subjective Subjective Subjective: This patient recommendation is based on a telemedicine consult request which was completed asynchronously through chart review and information provided by the primary physician. The patient was not seen or examined today. The evaluation is consultative in nature and all patient care and treatment decisions can either be accepted or rejected by the patient's primary hospital-based treating physician using their own independent medical judgment for their patient. Home Medications and Allergies Home Medications and Allergies Inpatient Medications: Active Medications Generic Name Dose Route Start Last Admin Trade Name Freq PRN Reason Stop Dose Admin Acetaminophen 650 mg 09/18/23 09:41 09/20/23 06:31 Acetaminophen 325 Mg Tablet PO 650 mg Q4H PRN Administration Azithromycin 500 mg 09/18/23 12:00 09/19/23 12:42 Azithromycin 250 Mg Tablet PO 500 mg Q24H MIGUEL Administration Enoxaparin Sodium 40 mg 09/18/23 21:00 09/19/23 20:13 Enoxaparin 40 Mg/0.4 Ml Inj SUBCUT 40 mg HS MIGUEL Administration Estradiol 0.5 mg 09/19/23 15:00 09/19/23 14:41 Estradiol 1 Mg Tablet PO 0.5 mg DAILY@15 MIGUEL Administration Cefepime HCl 2 gm/ Sodium 100 mls @ 200 mls/hr 09/18/23 12:00 09/20/23 02:38 Chloride IVPB 200 mls/hr Q12H MIGUEL Administration Lactobacillus Acidophilus 1 tab 09/18/23 12:00 09/20/23 09:16 Lactobacillus Acidophilus 1 Tablet PO 1 tab TIDWM MIGUEL Administration Lidocaine/Diphenhydr/Alum/Mg/Simeth 5 ml 09/19/23 12:27 09/19/23 20:14 Diphen/Lido/Alum/Mag/Simeth 5 Ml Suspension MUCOUS MEM 5 ml QID PRN Administration Melatonin 3 mg 09/18/23 09:41 Melatonin 3 Mg Tablet PO HS PRN Multivitamins/Minerals 1 tab 09/19/23 09:00 09/20/23 09:16 Multivitamin/Minerals 1 Tablet PO 1 tab DAILY MIGUEL Administration Omeprazole 20 mg 09/19/23 07:00 09/20/23 06:12 Omeprazole [address] PO 20 mg DAILY@0700 MIGUEL Administration Ondansetron HCl 4 mg 09/18/23 09:41 Ondansetron 2 Mg/Ml Inj IVP Q4H PRN Nausea Senna/Docusate Sodium 1 - 2 tab 09/18/23 09:41 09/19/23 18:21 Sennosides/Docusate Tablet PO 1 tab BID PRN Administration Sodium Chloride 5 ml 09/18/23 21:00 09/20/23 09:18 Sodium Chloride 0.9 % (Flush) 10 Ml Syringe IVF 5 ml BID MIGUEL Administration Discontinued Medications Generic Name Dose Route Start Last Admin Trade Name Freq PRN Reason Stop Dose Admin Acetaminophen 1,000 mg 09/17/23 17:30 09/17/23 17:43 Acetaminophen 500 Mg Tablet PO 09/17/23 17:31 1,000 mg ONCE ONE Administration Acetaminophen Confirm 09/17/23 17:32 Acetaminophen 500 Mg Tablet Administered 09/17/23 17:33 Dose 1,000 mg .ROUTE .STK-MED ONE Acetaminophen 1,000 mg 09/17/23 22:01 09/17/23 22:26 Acetaminophen 500 Mg Tablet PO 09/17/23 22:02 1,000 mg ONCE ONE Administration Acetaminophen 1,000 mg 09/18/23 07:26 09/18/23 07:15 Acetaminophen 500 Mg Tablet PO 09/18/23 07:27 1,000 mg ONCE ONE Administration Albuterol 2.5 mg 09/18/23 02:51 09/18/23 02:56 Albuterol Sulfate 2.5 Mg/3 Ml Vial.Neb NEB 2.5 mg ONCE PRN Administration Cough Albuterol Confirm 09/18/23 02:57 Albuterol Sulfate 2.5 Mg/3 Ml Vial.Neb Administered 09/18/23 02:58 Dose 2.5 mg NEB .STK-MED ONE Docusate Sodium 200 mg 09/17/23 22:02 09/17/23 22:31 Docusate Sodium 100 Mg Capsule PO 09/17/23 22:03 200 mg ONCE ONE Administration Estradiol 0.5 mg 09/19/23 09:00 Estradiol 1 Mg Tablet PO DAILY MIGUEL Vancomycin HCl 1,250 mg/ 262.5 mls @ 175 mls/hr 09/18/23 12:30 09/18/23 16:47 Sodium Chloride IVPB 09/18/23 13:59 Infused ONCE ONE Infusion Protocol Vancomycin HCl 1,000 mg/ 260 mls @ 260 mls/hr 09/19/23 12:30 09/19/23 15:28 Sodium Chloride IVPB Infused Q24H MIGUEL Infusion Protocol Iopamidol 95 ml 09/17/23 17:31 Iopamidol IV 09/17/23 17:32 .STK-MED ONE Levofloxacin 750 mg 09/18/23 02:40 09/18/23 02:56 Levofloxacin 750 Mg Tablet PO 09/18/23 02:41 750 mg ONCE ONE Administration Levofloxacin Confirm 09/18/23 02:42 Levofloxacin 500 Mg Tablet Administered 09/18/23 02:43 Dose 500 mg .ROUTE .STK-MED ONE Lorazepam 0.5 mg 09/18/23 00:57 09/18/23 01:10 Lorazepam 2 Mg/Ml Inj IVP 09/18/23 00:58 0.5 mg ONCE ONE Administration Lorazepam Confirm 09/18/23 01:02 Lorazepam 2 Mg/Ml Inj Administered 09/18/23 01:03 Dose 2 mg .ROUTE .STK-MED ONE Omeprazole Confirm 09/18/23 07:11 Omeprazole [address] Administered 09/18/23 07:12 Dose 20 mg .ROUTE .STK-MED ONE Omeprazole Confirm 09/18/23 07:18 Omeprazole [address] Administered 09/18/23 07:19 Dose 20 mg .ROUTE .STK-MED ONE Omeprazole 40 mg 09/18/23 07:26 09/18/23 07:15 Omeprazole [address] PO 09/18/23 07:27 40 mg ONCE ONE Administration Prednisone 5 mg 09/18/23 15:05 09/19/23 08:28 Prednisone 5 Mg Tablet PO 09/19/23 09:01 5 mg DAILY MIGUEL Administration Allergies Allergy/AdvReac Type Severity Reaction Status Date / Time penicillin V Allergy Mild Rash Verified 09/17/23 17:31 Sulfa (Sulfonamide Allergy Mild Verified 09/17/23 17:31 Antibiotics) Objective - Infectious Disease Objective Vital Signs: Vital Signs - 24 hr 09/19/23 16:09 09/19/23 16:09 09/19/23 16:09 Temperature 98.7 F Pulse Rate [Pulse Oximeter] 79 79 Respiratory Rate 18 28 H 28 H Blood Pressure [Right Arm] 118/64 Pulse Oximetry 94 94 Oxygen Delivery Method Nasal Cannula Nasal Cannula Oxygen Flow Rate 1 1 09/19/23 19:00 09/19/23 22:41 09/19/23 22:41 Temperature 98.2 F Pulse Rate [Pulse Oximeter] 80 Respiratory Rate 28 H 26 H Blood Pressure [Right Arm] 127/65 Pulse Oximetry 90 93 Oxygen Delivery Method Nasal Cannula Room Air Oxygen Flow Rate 09/19/23 22:41 09/20/23 03:00 09/20/23 06:31 Temperature 97.7 F 98 F 99.6 F Pulse Rate [Pulse Oximeter] 84 85 Respiratory Rate 26 H 26 H Blood Pressure [Right Arm] 132/79 146/84 H Pulse Oximetry 97 92 Oxygen Delivery Method Nasal Cannula Room Air Oxygen Flow Rate 1 09/20/23 07:00 09/20/23 07:00 09/20/23 07:00 Temperature 98.3 F Pulse Rate [Pulse Oximeter] 107 H 90 Respiratory Rate 22 26 H 22 Blood Pressure [Right Arm] 125/62 Pulse Oximetry 92 93 Oxygen Delivery Method Room Air Room Air Oxygen Flow Rate 1 0.5 Narrative: Patient was not seen or examined. Results - Infectious Disease Results Labs: 09/17/23 17:10 Blood Blood Culture - Preliminary NO GROWTH AFTER 48 HOURS 09/17/23 16:57 Blood Blood Culture - Preliminary NO GROWTH AFTER 48 HOURS 09/18/23 11:30 Nares MRSA Screen - Final NO GROWTH AFTER 24 HOURS Laboratory Tests 09/20/23 09/19/23 09/18/23 Range/Units 06:08 07:43 17:17 WBC 5.54 6.13 (4.50-11.00) K/uL RBC 3.58 L 3.85 L (4.00-5.20) m/uL Hgb 10.4 L 11.0 L (12.0-16.0) gm/dL Hct 31.6 L 33.8 (33.0-51.0) % MCV 88 88 (80-100) fL MCH 29 29 (26-34) pg MCHC 33 33 (32-36) gm/dL RDW Coeff of [place] 14.4 14.4 (11.5-15.5) % Plt Count 339 342 (140-440) K/uL Neut % (Auto) 80.1 H 80.4 H (42.0-72.0) % Lymph % (Auto) 11.6 L 11.7 L (20-44) % [place] % (Auto) 8.1 7.7 (0.0-11.0) % Eos % (Auto) 0.0 0.0 (0.0-7.0) % Baso % (Auto) 0.0 0.0 (0.0-3.0) % Neut # (Auto) 4.40 4.90 (1.7-7.0) K/uL Lymph # (Auto) 0.60 L 0.70 L (0.90-2.90) K/uL [place] # (Auto) 0.40 0.50 (0.00-0.90) K/UL Eos # (Auto) 0.00 0.00 (0.00-0.50) K/uL Baso # (Auto) 0.00 0.00 (0.00-0.30) K/uL Abs Immat Gran (auto) 0.01 0.01 (0.00-0.30) K/uL Imm/Tot Granulo (auto) 0.2 0.2 % D-Dimer Quant (PE/DVT) (0.00-0.50) ug/ml Sodium 134 L 133 L (135-149) mmol/L Potassium 4.1 4.1 (3.6-5.1) mmol/L Chloride 98 97 (96-114) mmol/L Carbon Dioxide 29 27 (20-32) mmol/L Anion Gap 7 9 (7-15) mEq/L BUN 13 12 (7-30) mg/dL Creatinine 0.5 0.5 (0.5-1.5) mg/dL Estimated Creat Clear 50.99 51.47 Estimated GFR 100 100 ml/min Glucose 96 99 (60-115) mg/dL Lactate (0.5-1.9) mmol/L Calcium 8.5 8.7 (8.4-10.6) mg/dL C-Reactive Protein 12.3 H (0.5-1.0) mg/dL NT-Pro-B Natriuret Pep pg/mL Urine L. pneumophilia Ag (Negative) Urine Strep pneumoniae Ag (Negative) H.Galactomannan Ag Qnt Pending U Histopl Galact Ant Int Pending SARS-CoV-2 Ag (Rapid) (Negative) 09/18/23 09/17/23 09/17/23 Range/Units 02:15 17:10 16:55 WBC (4.50-11.00) K/uL RBC (4.00-5.20) m/uL Hgb (12.0-16.0) gm/dL Hct (33.0-51.0) % MCV (80-100) fL MCH (26-34) pg MCHC (32-36) gm/dL RDW Coeff of [place] (11.5-15.5) % Plt Count (140-440) K/uL Neut % (Auto) (42.0-72.0) % Lymph % (Auto) (20-44) % [place] % (Auto) (0.0-11.0) % Eos % (Auto) (0.0-7.0) % Baso % (Auto) (0.0-3.0) % Neut # (Auto) (1.7-7.0) K/uL Lymph # (Auto) (0.90-2.90) K/uL [place] # (Auto) (0.00-0.90) K/UL Eos # (Auto) (0.00-0.50) K/uL Baso # (Auto) (0.00-0.30) K/uL Abs Immat Gran (auto) (0.00-0.30) K/uL Imm/Tot Granulo (auto) % D-Dimer Quant (PE/DVT) (0.00-0.50) ug/ml Sodium (135-149) mmol/L Potassium (3.6-5.1) mmol/L Chloride (96-114) mmol/L Carbon Dioxide (20-32) mmol/L Anion Gap (7-15) mEq/L BUN (7-30) mg/dL Creatinine (0.5-1.5) mg/dL Estimated Creat Clear Estimated GFR ml/min Glucose (60-115) mg/dL Lactate (0.5-1.9) mmol/L Calcium (8.4-10.6) mg/dL C-Reactive Protein (0.5-1.0) mg/dL NT-Pro-B Natriuret Pep Cancelled pg/mL Urine L. pneumophilia Ag L. pneumo Negative (Negative) Urine Strep pneumoniae Ag S. pneumo Negative (Negative) H.Galactomannan Ag Qnt U Histopl Galact Ant Int SARS-CoV-2 Ag (Rapid) POSITIVE A (Negative) 09/17/23 Range/Units 16:55 WBC 10.08 (4.50-11.00) K/uL RBC 4.33 (4.00-5.20) m/uL Hgb 12.4 (12.0-16.0) gm/dL Hct 38.2 (33.0-51.0) % MCV 88 (80-100) fL MCH 29 (26-34) pg MCHC 33 (32-36) gm/dL RDW Coeff of [place] 14.4 (11.5-15.5) % Plt Count 417 (140-440) K/uL Neut % (Auto) 89.8 H (42.0-72.0) % Lymph % (Auto) 3.6 L (20-44) % [place] % (Auto) 6.3 (0.0-11.0) % Eos % (Auto) 0.0 (0.0-7.0) % Baso % (Auto) 0.1 (0.0-3.0) % Neut # (Auto) 9.10 H (1.7-7.0) K/uL Lymph # (Auto) 0.40 L (0.90-2.90) K/uL [place] # (Auto) 0.60 (0.00-0.90) K/UL Eos # (Auto) 0.00 (0.00-0.50) K/uL Baso # (Auto) 0.01 (0.00-0.30) K/uL Abs Immat Gran (auto) 0.02 (0.00-0.30) K/uL Imm/Tot Granulo (auto) 0.2 % D-Dimer Quant (PE/DVT) 1.32 H (0.00-0.50) ug/ml Sodium 132 L (135-149) mmol/L Potassium 4.2 (3.6-5.1) mmol/L Chloride 95 L (96-114) mmol/L Carbon Dioxide 28 (20-32) mmol/L Anion Gap 9 (7-15) mEq/L BUN 12 (7-30) mg/dL Creatinine 0.5 (0.5-1.5) mg/dL Estimated Creat Clear 52.05 Estimated GFR 100 ml/min Glucose 117 H (60-115) mg/dL Lactate 1.2 (0.5-1.9) mmol/L Calcium 9.2 (8.4-10.6) mg/dL C-Reactive Protein 8.2 H (0.5-1.0) mg/dL NT-Pro-B Natriuret Pep 167 pg/mL Urine L. 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, COVID-19 diagnosed on 08/03/23, recent treatment for Legionella pneumonia who presented on 09/17 with persistent hypoxia, fevers. At the time of her COVID-19 diagnosis, she had fever, cough, dyspnea, fatigue, malaise. The fever resolved after ~4 days. Her other symptoms persisted. On 08/15, she was started on doxycycline by her PCP without improvement. She had recurrence of the fever with worsening dyspnea. She was admitted to [facility] from 09/04-09/08 with fever, hypoxia, and CTA chest showing diffuse patchy GGO throughout lower lobes and to a lesser degree the upper lobes and RML. Her COVID-19 test remained positive at that time (both PCR and antigen). She was started on cefepime and azithromycin. Urine Legionella Ag positive. ID was consulted and recommended levofloxacin 750 mg daily to complete a 7 day course of treatment for CAP as well as possible Legionella. It appears the pt was discharged on 09/08 on levofloxacin 500 mg PO q24h to complete a 10 day course (finished ~09/13-09/14). She was also given 4 doses of solumedrol, then transitioned to a prednisone taper (20 mg 09/09-09/12, 10 mg 09/13-09/16, 5 mg 09/17-09/20). Uncertain whether pt noticed improvement with levofloxacin. She then presented to the ED on 09/14 reporting shortness of breath, hypoxia, recurrence of fever. Pt had a fever on 09/11 to 101, then again on 09/14 to 102.3. She reported desaturating into the low 70s with exertion. Labs showed no leukocytosis. CXR showed bilateral lower lobe pneumonia not significantly changed. She was discharged from the ED. She was discharged from the ED. Pt then saw her PCP on 09/17 and was sent back to the ED due to hypoxia to 81-87%. On presentation, pt was febrile to 100.6, tachypneic, requiring 2 L NC. CTA chest showed no PE, and worsening multifocal basilar predominant ground glass consolidations. Pt reported she is not coughing up significant sputum, denied hemoptysis, chest pain. Also reports sores in her mouth that are making it difficult for her to eat. Pt was given a dose of levofloxacin. ID was consulted. Pt's antibiotics were switched to cefepime, azithromycin. Primary team has attempted to transfer the pt, without any success thus far. Micro: 09/18 Urine Legionella Ag: neg 09/18 Urine Strep Ag: neg 09/18 MRSA nares: neg 09/17 BCx x2: NGTD 09/17 Rapid COVID-19 Ag: positive 09/14 Urine Legionella Ag: neg 09/14 Urine Strep Ag: neg 09/14 COVID-19 positive, flu/RSV negative 09/14 Rapid COVID-19 Ag: positive 09/14 BCx x2: NGTD 09/05 MRSA nares: neg 09/04 Urine Legionella Ag: positive 09/04 Urine Strep Ag: neg 09/04 BCx x2: NG 09/04 COVID-19 positive, flu/RSV negative 09/04 Rapid COVID-19 Ag: positive Abx: Cefepime 09/18 - present Azithro 500 mg 09/18 - present Vanc 09/18 - 09/19 Levofloxacin 09/18 Problems: #Acute hypoxic respiratory failure #Pneumonia #Recent possible Legionella pneumonia #COVID-19 (08/03/23) #Antibiotic allergies: penicillin (Rash), sulfa (unknown) Discussion: Pt with initial COVID-19 infection in early July with initial improvement, but subsequent recurrence of fevers and hypoxia that did not resolve with doxycycline in late July, levofloxacin x 10 days through 09/13 for possible Legionella pneumonia (of note, underdosed). She does not have a history of immunosuppression--did have recent steroid course, but was not a prolonged high dose that would predispose her to PJP pneumonia. Could consider continued Legionella pneumonia (despite negative urine Legionella Ag) in the setting of underdosed levofloxacin, other bacterial pneumonia, viral pneumonia, fungal pneumonia such as COVID-19 associated pulmonary aspergillosis, or non- infectious ARDS [id number]. Pt was last febrile on 125 AM. Currently on 0.5 L NC. Recommendations: -Continue cefepime, azithromycin to complete ~7 day course -Bacterial and fungal sputum cultures if pt able to make sputum -Follow-up beta D glucan, Aspergillus Ag, urine Histo Ag -Can send full respiratory viral panel if available, to evaluate for a non COVID-19/flu/RSV viral infection -Ideally would be able to transfer to hospital that has a pulmonology service that can perform bronchoscopy, has antifungals -Will assess for response to antibiotics. If no improvement, could consider starting voriconazole 300 mg PO q12h x 2 doses (loading dose), followed by 200 mg PO q12h (maintenance dose) to cover empirically for invasive pulmonary aspergillosis. Unfortunately, it does not appear that vori (or other antifungals such as posaconazole, isavuconazole, or amphotericin) is available on formulary, and would therefore have to be ordered for delivery. For now, pt appears stable and afebrile on 0.5 L NC, therefore think it is reasonable to hold on antifungals pending serum fungal markers above, and to increase yield of a bronchoscopy in case the pt is successfully transferred. Will continue to follow. We will not follow by chart review over the weekend, but an ID physician is available over the weekend for telephonic discussion by paging the [facility] ([phone]).
[2023-09-20] MEDS: AZITHROMYCIN 250 MG TABLET 500 MG PO (14:27)
[2023-09-20] MEDS: SENNOSIDES/DOCUSATE TABLET PO ×2 (14:41→23:01)
[2023-09-20] MEDS: estradioL 1 MG TABLET 0.5 MG PO (14:41)
--- NOTE | 2023-09-20 20:05 | PC.NURSE ---
pt moved to room 274 for negative pressure isolation. VS WNL and LS diminished with fine bibasilar crackles. Rates left rib pain 3/10, PRN Tylenol given. Moves independently and still requiring 0.5-1L/O2 via NC to keep SpO2 above 90%. Diligent with aerobika use.
[2023-09-20] MEDS: ENOXAPARIN 40 MG/0.4 ML INJ SUBCUT (23:00)
[2023-09-21 01:15] VITALS: TEMP 36.9
[2023-09-21] MEDS: CEFEPIME HCL 2 GM in 0.9 % SODIUM CHLORIDE Mini-bag 100 ML IVPB ×2 (03:29→14:40)
[2023-09-21 03:40] VITALS: BP 112/73; PULSE 83; RESP 18; TEMP 36.8; O2SAT 94
[2023-09-21] MEDS: OMEPRAZOLE 20 MG CAPSULE DR PO (06:51)
[2023-09-21 07:00] VITALS: BP 136/62; PULSE 95; RESP 18; RESP 20; TEMP 38.6; O2SAT 91; O2SAT 95
[2023-09-21 07:36] LABS: Hematocrit 33.6 % (33.0-51.0); Immature Granulocytes Abs Auto 0.01 K/uL (0.00-0.30); Immature Granulocytes Pct Auto 0.2 %; Lymphocytes Percent Auto 13.1 % (20-44); Mean Corpuscular HGB Conc 33 gm/dL (32-36); Mean Corpuscular Hemoglobin 29 pg (26-34); Mean Corpuscular Volume 89 fL (80-100); Monocytes Percent Auto 10.5 % (0.0-11.0); Neutrophils Percent Auto 76.2 % (42.0-72.0); Platelet Count* 326 K/uL (140-440); RDW Coefficient of Variation % 14.3 % (11.5-15.5); Red Blood Count 3.79 m/uL (4.00-5.20); White Blood Count* 4.75 K/uL (4.50-11.00)
--- NOTE | 2023-09-21 07:44 | PC.NURSE ---
Pt is alert and oriented x3. Pt had 101.4 fever overnight, managed with PRN Tylenol. Pt reports 8/10 pain in abdomen, managed with PRN medications. Pt denies chest, SOB, lightheadedness and dizziness and N/V. Pt titrated down from 1L nasal cannula to room air, O2 stats maintaining between 92-97%. Pt is up ad kip in room. Slept throughout most of night. ?
[2023-09-21 07:45] LABS: Slide Review Reflex No
[2023-09-21 07:46] LABS: Chloride* 97 mmol/L (96-114); Potassium* 3.9 mmol/L (3.6-5.1); Sodium* 134 mmol/L (135-149)
[2023-09-21 07:49] LABS: Anion Gap 7 mEq/L (7-15); Blood Urea Nitrogen* 12 mg/dL (7-30); Carbon Dioxide* 30 mmol/L (20-32); Creatinine* 0.5 mg/dL (0.5-1.5); Est. Creatinine Clearance* 51.13; Estimated Glomerular Filt Rate 100 ml/min; Glucose* 101 mg/dL (60-115)
[2023-09-21 07:50] LABS: Calcium* 8.6 mg/dL (8.4-10.6)
--- NOTE | 2023-09-21 08:00 | CRLHL7_ITS ---
For Patients: As a result of the Century Cures Act, medical imaging exams and procedure reports are released immediately into your electronic medical record. You may view this report before your referring provider. If you have questions, please contact your health care provider. INDICATION: PICC line placement. COMPARISON: Portable AP chest September 18, 2023. TECHNIQUE: Single AP chest. FINDINGS: PICC line extending from the left upper extremity with its tip at the cavoatrial junction. No pneumothorax or pleural effusion. Diffuse patchy infiltrates both lower lobes ;stable in appearance. Status post median sternotomy. IMPRESSION: 1. PICC line at the cavoatrial junction. 2. No pneumothorax or pleural effusion. 3. Bilateral pulmonary infiltrates without any interval change. Dictated by Puneet Newman MD @ 09/21/2023 9:48:17 AM (Electronically Signed)
--- NOTE | 2023-09-21 08:00 | CRLHL7_ITS ---
For Patients: As a result of the Cures Act, medical imaging exams and procedure reports are released immediately into your electronic medical record. You may view this report before your referring provider. If you have questions, please contact your health care provider. Indication: PICC PLACEMENT Technique: Grayscale ultrasound images of the left basilic vein submitted. IMPRESSION: Sonographic guidance for PICC line placement. Dictated by Dale Jordan MD @ 09/23/2023 8:43:20 AM (Electronically Signed)
[2023-09-21] MEDS: ACETAMINOPHEN 325 MG TABLET 650 MG PO (08:19)
[2023-09-21] MEDS: LACTOBACILLUS ACIDOPHILUS 1 TABLET 1 TAB PO ×2 (08:19→12:12)
[2023-09-21] MEDS: MULTIVITAMIN/MINERALS 1 TABLET 1 TAB PO (09:20)
[2023-09-21] MEDS: SODIUM CHLORIDE 0.9 % (FLUSH) 10 ML SYRINGE 5 ML IVF (09:21)
[2023-09-21 11:00] VITALS: BP 112/64; PULSE 83; RESP 20; O2SAT 96
[2023-09-21] MEDS: guaiFENesin 600 MG TAB.ER.12H PO (12:12)
[2023-09-21] MEDS: AZITHROMYCIN 250 MG TABLET 500 MG PO (12:12)
[2023-09-21] MEDS: SENNOSIDES/DOCUSATE TABLET PO (12:50)
--- NOTE | 2023-09-21 14:10 | PM.DS1 ---
DS: Providers Provider Date Seen: 09/21/23 Date of admission: 09/18/23 09:41 Primary care physician: Aury Estevez MD Admitting Clinician: Master Hawkins MD Consults: 09/18/23 09:41 Consult to Infectious Diseases [CONS] Routine Comment: Consulting Provider: Infectious Disease Connect Consult priority: Urgent Has provider been notified: No Call back required?: Yes Attending Physician on discharge: ARIEL Hugo, [facility] Date of Discharge: 09/21/23 DS: Diagnosis Discharge Diagnosis (1) Pneumonia: Status: Acute Problem details: Getting worse despite relatively aggressive evaluation and treatment over the past month. Discussed with Infectious Disease consult. Will treat with Zithromax, vancomycin (discontinued) and cefepime. Obtain testing for Aspergillus and other fungal infections. Patient would likely benefit from bronchoscopy to evaluate. Currently unable to transferred due to lack of bed availability in the region 09/21: -fevers past 48 hours -MRSA negative, BC x2 negative, strep pneumo/Legionella negative, UA unremarkable -continue cefepime and azithromycin, vancomycin discontinued. PICC line placed 09/21 -Aspergillus and histoplasmosis pending -accepted for transfer to [facility], accepting physician Dr. Chicas (2) Hypoxia: Status: Acute Problem details: Due to pneumonia. Stable on nasal cannula oxygen, 0.5-1L, at 97-98% (3) Legionella pneumonia: Status: Acute Problem details: History of 09/04/23 Total doses of 10 days of antibiotics, Levaquin 500 mg q.day at discharge (4) COVID-19: Status: Acute Problem details: Symptomatic with a positive PCR since early July. Chest CT appearance similar to that of severe COVID pneumonia from 2 or 3 years ago. (5) Oral ulcer: Status: Acute Problem details: Magic mouthwash and monitor DS: Summary Hospital Course Hospital Course: [age] year old female past medical history significant for recent Legionella pneumonia, recent COVID, oral ulcer, anxiety was admitted to the medical floor for further management acute hypoxic respiratory failure in setting of recurrent pneumonia. Course of care and details as noted above. Patient is transferred to [facility] for further evaluation, pulmonary workup, bronchoscopy Remainder of chronic medical comorbidities were monitored and managed with home medications. Status at Discharge Overall status at discharge: patient is not back to baseline Time Spent with Patient Time attestation: Total time spent providing and/or coordinating discharge services: Time spent: Greater than 30 minutes Exam Narrative: Exam Narrative: PHYSICAL EXAM General: Pleasant, conversant, NAD Cardiovascular: RRR Pulmonary: No dyspnea Neurological: Alert, answering questions appropriately Skin: Warm, dry. Const: Vital Signs, click to edit/add: Vital Signs - 24 hr 09/20/23 15:00 09/20/23 15:00 09/20/23 15:00 Temperature 99 F Pulse Rate [Pulse Oximeter] 97 92 Respiratory Rate 20 20 20 Blood Pressure [Ri ght Arm] 114/52 L Pulse Oximetry 94 94 Oxygen Delivery Me thod Room Air Room Air Oxygen Flow Rate 1 1 09/20/23 22:57 09/20/23 23:00 09/21/23 01:15 Temperature 101.4 F H 101.4 F H 98.4 F Pulse Rate [Pulse Oximeter] 85 Respiratory Rate 20 Blood Pressure [Ri ght Arm] 127/65 Pulse Oximetry 97 Oxygen Delivery Me thod Nasal Cannula Oxygen Flow Rate 1 09/21/23 03:40 09/21/23 07:00 09/21/23 07:00 Temperature 98.3 F Pulse Rate [Pulse Oximeter] 83 Respiratory Rate 18 18 Blood Pressure [Ri ght Arm] 112/73 Pulse Oximetry 94 91 91 Oxygen Delivery Me thod Nasal Cannula Room Air Oxygen Flow Rate 0.5 09/21/23 07:00 09/21/23 07:00 09/21/23 11:00 Temperature 101.4 F H Pulse Rate [Pulse Oximeter] 95 95 83 Respiratory Rate 20 20 20 Blood Pressure [Ri ght Arm] 136/62 112/64 Pulse Oximetry 95 96 Oxygen Delivery Me thod Room Air Nasal Cannula Oxygen Flow Rate 0.5 DS: Data Data Completed and Pending Completed studies during hospitalization: Procedures Introduction of Other Therapeutic Substance into Respiratory Tract, Via Natural or Artificial Opening (09/04/23) Labs on day of discharge: Labs from last 24 hours 09/21/23 07:15 WBC 4.75 RBC 3.79 L Hgb 11.0 L Hct 33.6 MCV 89 MCH 29 MCHC 33 RDW Coeff of Mariana 14.3 Plt Count 326 Neut % (Auto) 76.2 H Lymph % (Auto) 13.1 L Caswell % (Auto) 10.5 Eos % (Auto) 0.0 Baso % (Auto) 0.0 Neut # (Auto) 3.60 Lymph # (Auto) 0.60 L Caswell # (Auto) 0.50 Eos # (Auto) 0.00 Baso # (Auto) 0.00 Abs Immat Gran (auto) 0.01 Imm/Tot Granulo (auto) 0.2 Sodium 134 L Potassium 3.9 Chloride 97 Carbon Dioxide 30 Anion Gap 7 BUN 12 Creatinine 0.5 Estimated Creat Clear 51.13 Estimated GFR 100 Glucose 101 Calcium 8.6 Preliminary micro results at discharge 09/17/23 17:10 Blood Culture - Preliminary Blood NO GROWTH AFTER 72 HOURS 09/17/23 16:57 Blood Culture - Preliminary Blood NO GROWTH AFTER 72 HOURS Discharge Plan Discharge Disposition: [facility] Date of Admission: 09/18/23 09:41 Attending Physician on Admission: Master Hawkins Attending Provider on Discharge: Mary Sorensen Consulting Providers: Felipa Markham; Sarahi Ventura; Karlene Jonh; Humberto Kendrick; Mumtaz Simmons; Katerin Quach; Dayna Cruz Primary Care Provider: Aury Estevez Condition: Stable Discharge Medications: No Action cholecalciferol (vitamin D3) 50 mcg (2,000 unit) capsule 2,000 unit PO DAILY acetaminophen 500 mg tablet 1,000 mg PO Q6H PRN Rx Instructions: NO MORE THAN 4000 MG/DAY cyanocobalamin (vitamin B-12) 1,000 mcg tablet 1,000 mcg PO QWEEK ascorbic acid (vitamin C) 1,000 mg tablet 1 g PO DAILY One Daily Multi-Vit w-Mineral 4.5 mg iron tablet 1 tab PO DAILY Vitron-C 65 mg iron- 125 mg tablet,delayed release (DR/EC) 1 tab PO QHS Qty: 90 0RF Lactobacillus acidophilus 0.5 mg (100 million cell) Tablet 1,000 mmu cells PO TIDWM Qty: 90 0RF Magic Mouthwash (Lidocaine/Benadryl/Maalox) 120 mL suspension 10 ml PO QID PRNQty: 120 1RF Rx Instructions: Lidocaine Viscous 2 % mucosal solution 40 mL; Maalox 200 mg-200 mg-20 mg/5 mL oral suspension 40 mL; Benadryl 12.5 mg/5 mL oral elixir 40 mL; Per 120 mL SWISH AND SPIT. MAY COMPOUND IF FIRST PRODUCT IS NOT AVAILABLE. albuterol sulfate 90 mcg/actuation HFA aerosol inhaler 2 puff inhalation QID PRNQty: 6.7 1RF glucosamine-chondroitin [Cosamin DS] 500-400 mg tablet 2 tab PO DAILY estradiol 0.5 mg tablet 0.5 mg PO DAILY omeprazole 20 mg capsule,delayed release(DR/EC) 20 mg PO DAILY prednisone 5 mg tablet 5 mg PO DAILY Patient Comments: LAST DOSE 09/20/23 Discharge Orders: Transfer of Care to Other Hospital (ORDER); Ordered 09/21/23 Ordered By: Mary Sorensen Follow Up Appointments: Aury Estevez MD [Primary Care Provider] - Hospital Course: [age] year old female past medical history significant for recent Legionella pneumonia, recent COVID, oral ulcer, anxiety was admitted to the medical floor for further management acute hypoxic respiratory failure in setting of recurrent pneumonia. Course of care and details as noted above. Patient is transferred to [facility] for further evaluation, pulmonary workup, bronchoscopy Remainder of chronic medical comorbidities were monitored and managed with home medications. Oxygen: Yes Oxygen Delivery Method: Nasal Cannula Oxygen Flow Rate: 0.5-1L Urinary Catheter: No Drips/Lines: PICC for abx Services not available here: Pulmonology, bronchoscopy
[2023-09-21] MEDS: estradioL 1 MG TABLET 0.5 MG PO (14:41)
[2023-09-21 15:00] VITALS: BP 130/77; PULSE 88; PULSE 91; RESP 20; TEMP 37.4; O2SAT 94; O2SAT 95; O2SAT 98
--- NOTE | 2023-09-21 16:24 | PC.NURSE ---
Shift Note: VSS, pt weaned to RA with SpO2 94-98%. Rates left rib pain 3/10, PRN Tylenol given for discomfort. Temps range from 99.1-102.1, pt was intermittently flushed and sweaty despite c/o chills. PICC line placement to left upper arm this morning, site is patent. Moving well independently. Accepted for transfer to [facility], report given. [facility] left with pt for transfer at 1629. [facility] called and updated on transfer status.
[2023-09-22 04:12] LABS: Histoplasma Galactomannan Ag Q Not Detected; Histoplasma Galactomannan Int. Not Detected (Not Detected)
== END 2023-09-21 16:34 | disposition short-term general hospital (02) | DRG 193 ==
LOC: ED 09-18 07:43 → MEDSURG 09-18 08:12
PROVIDERS: Family Medicine; Internal Medicine Infectious Disease; Admitting Provider Family Medicine; Emergency Provider Emergency Medicine Emergency Medical Services; PCP Family Medicine; Visit Provider Family Medicine
DX: J18.9 Pneumonia, unspecified organism (principal); J96.01 Acute respiratory failure with hypoxia; U07.1 COVID-19; A48.1 Legionnaires' disease; K12.1 Other forms of stomatitis; Z87.01 Personal history of pneumonia (recurrent); F41.9 Anxiety disorder, unspecified
CPT/HCPCS: 36415; 36573; 71045; 71275; 80048; 83605; 83880; 85025; 85379; 86140; 87040; 87070; 87081; 87102; 87305; 87385; 87426; 87449; 87631; 87899; 93005; 94640; 94664; 94761; 99284; 99285; A9153; A9270; C1751; J0692; J1650; J2060; J3370; J7050; J7512; Q9967

== ENCOUNTER 2023-09-21 16:00 | Outpatient (CLI) | payer MEDICARE, SELFPAY ==
--- OUTSIDE RECORDS SUMMARY | 2023-09-23 10:09 | XMS_ITS | Encounter Summary ---
Author Name Unknown Organization [facility] Address [address] [place] [address] Care Team Providers Care Test Desk Supervisor Name Role Phone Elsewhere, Pcp Primary Care Provider Unavailabl e Encounter Details Date Type Department Care Team (Late st Contact Info) Description 09/18/2023 Clinical Communication Division of Thoracic Surgery in [place], [place] [address] [place] [phone] Rosaura Claudio M.D., Ph.D. [address] [place] [address] Social History Tobacco Use Types Packs/Day Years [...] How often do you attend chur or latter-day services? Never 06/04/2022 Do you belong to any clubs o r organizations such as sikhism groups, unions, fraternal or athletic groups, or [...] care, and heating? Not very hard 06/04/2022 [facility] [place] of Occupat ional Health - Occupational Stress [...] Master's degree (e.g., MA, MS, Milly, MEd, FREIGHT ASSOCIATE, MADELYN) 06/04/2022 Sex and Gender Information Value [...] and Pathology, [facility] in [place], [place] [address] [place] [phone] Radha Keen APRN, C.N.P., M.S.N. [address] [place] [phone] 11/11/2023 11:15 AM CDT Appointment Department of Radiology, [facility] in [place], [place] [address] [place] [phone] Radha Keen APRN, C.N.P., M.S.N. [address] [place] [phone] 11/11/2023 1:00 PM CDT Office Visit Division of Thoracic Surgery in [place], [place] [address] [place] [phone] Radha Keen APRN, C.N.P., M.S.N. [address] [place] [phone] documented as of this encounter Visit Diagnoses Not on filedocumented in this encounter Care Teams Test Desk Supervisor Relationship Specialty Start Date End Date Elsewhere, Pcp PCP - General Family Medicine 01/03/18 documented as of this encounter
--- OUTSIDE RECORDS SUMMARY | 2023-09-23 10:09 | XMS_ITS ---
Author Name Unknown Organization [facility] Address [address] [place] [address] Care Team Providers Care Machine Operator Slitter Technician Name Role Phone Unavailable Unavailable Unavailable Surgery Details Not on file Complications Check Surgery Details section. Procedure Estimated Blood Loss Check Surgery Details section. Procedure Findings Check Surgery Details section. Procedure Specimens Taken Check Surgery Details section.
--- OUTSIDE RECORDS SUMMARY | 2023-09-23 10:09 | XMS_ITS | Encounter Summary ---
Author Name Unknown Organization [facility] Address [address] [place] [id number] Care Team Providers Care Ager Tender Name Role Phone Elsewhere, Pcp Primary Care Provider Unavailabl e Reason for Visit * Reason Onset Date Comments Pre-visit Intake 05/01/2023 Encounter Details Date Type Department Care Team (Latest Contact Info) Description 05/01/2023 12:00 PM CDT Clinical Communication Virtual Review in [place], [place] 200 [place] [address] Pre-visit Intake Social History Tobacco Use Types [...] How often do you attend chur or mandaeism services? Never 06/04/2022 Do you belong to [...] care, and heating? Not very hard 06/04/2022 [facility] of Occupat ional Health - Occupational Stress [...] Master's degree (e.g., MA, MS, Milly, MEd, RESTAURANT GREETER, MADELYN) 06/04/2022 Sex and Gender Information Value [...] of Laboratory Medicine and Pathology, [facility], in [place], [place] [address] [place] [address] Radha Keen APRN, C.N.P., M.S.N. [address] [place] [phone] 11/11/2023 11:15 AM CDT Appointment Department of Radiology, [facility], in [place], [place] [address] [place] [phone] Radha Keen APRN, C.N.P., M.S.N. [address] [place] [phone] 11/11/2023 1:00 PM CDT Office Visit Division of Thoracic Surgery in [place], [place] [address] [place] [phone] Radha Keen APRN, C.NLuz Maria, M.S.N. [address] [place] [phone] documented as of this encounter Visit Diagnoses Not on filedocumented in this encounter Care Teams Ager Tender Relationship Specialty Start Date End Date Elsewhere, Pcp PCP - General Family Medicine 01/03/18 documented as of this encounter
--- OUTSIDE RECORDS SUMMARY | 2023-09-23 10:09 | XMS_ITS | Encounter Summary ---
Author Name Unknown Organization [facility] Address [address] [place] [address] Care Team Providers Care Theatre Arts Professor Name Role Phone Elsewhere, Pcp Primary Care Provider Unavailabl e Reason for Visit * Reason Comments Med Refill Encounter Details Date Type Department Care Team (Late st Contact Info) Description 10/26/2022 Refill Division of Thoracic Surgery in [place], [place] [address] [place] [phone] Radha Keen APRN, C.N.P., M.S.N. [address] [place] [phone] Med Refill Social History Tobacco Use Types [...] How often do you attend chur or orthodoxy services? Never 06/04/2022 Do you belong to any clubs o r organizations such as mormon groups, unions, fraternal or athletic groups, or [...] care, and heating? Not very hard 06/04/2022 [facility] - [facility]ational Stress Questionnaire [...] Master's degree (e.g., MA, MS, Milly, MEd, SOCIAL WORK PROGRAM COORDINATOR, MADELYN) 06/04/2022 Sex and Gender Information Value Date Recorded Sex Assigned at Female 06/04/2022 4:58 PM CDT Gender Identity Female 06/04/2022 4:58 PM CDT Sexual Orientation Straight 06/04/2022 4: 58 PM CDT documented as of this encounter Plan of Treatment Upcoming Encounters Date Type Department Care Team (Late st Contact Info) Description 11/11/2023 10:40 AM CDT Appointment Department of Laboratory Medicine and Pathology, [facility] in [place], [place] [address] [place] [phone] Radha Keen APRN, C.NLuz Maria, M.S.N. [address] [place] [phone] 11/11/2023 11:15 AM CDT Appointment Department of Radiology, [facility] in [place], [place] [address] [place] [address] Radha Keen APRN, C.NLuz Maria, M.S.N. [address] [place] [phone] 11/11/2023 1:00 PM CDT Office Visit Division of Thoracic Surgery in [place], [place] [address] [place] [phone] Radha Keen APRN, C.NCasandra., M.S.N. [address] [place] [phone] documented as of this encounter Visit Diagnoses Not on filedocumented in this encounter Care Teams Theatre Arts Professor Relationship Specialty Start Date End Date Elsewhere, Pcp PCP - General Family Medicine 01/03/18 documented as of this encounter
--- OUTSIDE RECORDS SUMMARY | 2023-09-23 10:09 | XMS_ITS | Referral Summary ---
Author Name Unknown Organization [facility] Address [address] [place] [address] Care Team Providers Care Head Custodian Name Role Phone Elsewhere, Pcp Primary Care Provider Unavailabl e Source Comments Patient records contain information from all sites at [facility]. For routine questions regarding patient records, call [phone] during business hours, M-F 8:00 AM - 5:00 PM Central Time. Record requests for emergency care only can be directed to [phone] at any time.[facility] Encounters Date Type Department Care Team Description 09/18/2023 Clinical Communication Division of Thoracic Surgery in [place], [place] [address] [place] [phone] Rosaura Claudio M.D., Ph.D. 07/08/2023 Orders Only Division of Thoracic Surgery in [place], [place] [address] [place] [phone] Susan Jarrett RDontrell. 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 [id number] iday 0 03/14/2022 Active B complex-vitamins (BALANCE [...] Overview: Added automatically from request for surgery [id number] Immunizations Name Administration Dates Next Due PCV13 [...] declined 06/04/2022 How often do you attend [facility] or congregation services? Never 06/04/2022 Do you belong to [...] and heating? Not very hard 06/04/2022 [facility] of Occupat ional Health - Occupational [...] place to sleep or slept in a chcf (including now)? No 06/04/2022 Nutrition Answer Date [...] Master's degree (e.g., MA, MS, Milly, MEd, INCLUSION PARAEDUCATOR, MADELYN) 06/04/2022 Sex and Gender Information Value Date Recorded Sex Assigned at Female 06/04/2022 4:58 PM CDT Gender Identity Female 06/04/2022 4:58 PM CDT Sexual Orientation Straight 06/04/2022 4: 58 PM CDT Last Filed Vital Signs Vital Sign Reading Time Taken Comments Blood Pressure 125/53 08/27/2022 10:15 AM EVENT SALES REPRESENTATIVE Pulse 82 08/27/2022 10:15 AM EVENT SALES REPRESENTATIVE Temperature 36.8 ??C (98.2 ??F) 08/27/2022 10:[address] Respiratory Rate 16 08/27/2022 10:15 AM EVENT SALES REPRESENTATIVE Oxygen Saturation 98% 08/27/2022 10:15 AM EVENT SALES REPRESENTATIVE Inhaled Oxygen Concentration - - Weight 67.6 kg (149 lb 0.5 oz) 08/26/2022 9:15 A M EVENT SALES REPRESENTATIVE Height 173.9 cm (5' 8.47) 08/22/2022 7:06 AM CS T Body Mass Index 22.35 08/22/2022 7:06 AM EVENT SALES REPRESENTATIVE Plan of Treatment Upcoming Encounters Date Type Department Care Team (Late st Contact Info) Description 11/11/2023 10:40 AM CDT Appointment Department of Laboratory Medicine and Pathology, [facility] in [place], [place] [address] [place] [phone] Radha Keen APRN, C.NLuz Maria, M.S.N. [address] [place] [phone] 11/11/2023 11:15 AM CDT Appointment Department of Radiology, [place], [place] [address] [place] [phone] Radha Keen APRN, C.N.P., M.S.N. [address] [place] [phone] 11/11/2023 1:00 PM CDT Office Visit Division of Thoracic Surgery in [place], [place] [address] [place] [phone] Radha Keen APRN, C.N.P., M.S.N. [address] [place] [phone] Medical Devices Implanted Type Area Mirror Painter Device Identifier Shelf Expiration Date Model / Serial / Lot Clp Hrzn Ti 6 Clp Lg Orng - [id number] Implanted:Qty: 1 on 08/22/2022 by Rosaura Claudio M.D., Ph.D. at [facility] Hardware e.g. pins/screws/r ods [employer] [id number] 04/16/2027 [id number] / / [id number] Ocular Lens Ocular Lens Eye Orthopedic Other Orthopedic Other Wrist Procedures Procedure Name Priority Date/Time Associated Diagnosis Comments OUTSIDE DX CHEST Routine 09/18/2023 3:05 AM EVENT SALES REPRESENTATIVE OUTSIDE CT BODY Routine 09/17/2023 5:30 PM EVENT SALES REPRESENTATIVE OUTSIDE DX CHEST Routine 09/14/2023 9:10 PM EVENT SALES REPRESENTATIVE OUTSIDE DX CHEST Routine 09/07/2023 12:3 5 PM EVENT SALES REPRESENTATIVE OUTSIDE CT BODY Routine 09/04/2023 11:10 PM EVENT SALES REPRESENTATIVE OUTSIDE DX CHEST Routine 09/04/2023 8:35 PM EVENT SALES REPRESENTATIVE from Last 3 Months Results * XR CHEST 1V-Outside Chest Xray (09/18/2023 3:05 AM EVENT SALES REPRESENTATIVE) Only the most recent of4 resultswithin the time period is included. Narrative IIMS - 09/19/2023 2:52 PM EVENT SALES REPRESENTATIVE This order has been created and auto-finalized to support the import of outside images. If available, original interpretation can be found on the Media Tab in Chart Review, in Document Viewer, or as an image in QREADS. If a re-interpretation or overread is required please follow defined workflow. ?? Provider Not In System IMG DIAGNOSTIC IM AGING PROCEDURES Performing Organization Address [facility] Co de Phone Number IIMS NA * CT Angio Chest PE Protocol-Outside CT Body (09/17/2023 5:30 PM EVENT SALES REPRESENTATIVE) Only the most recent of2 resultswithin the time period is included. Narrative IIMS - 09/19/2023 3:01 PM EVENT SALES REPRESENTATIVE This order has been created and auto-finalized to support the import of outside images. If available, original interpretation can be found on the Media Tab in Chart Review, in Document Viewer, or as an image in QREADS. If a re-interpretation or overread is required please follow defined workflow. ?? Provider Not In System IMG CT PROCEDURES Performing Organization Address [facility] Co de Phone Number IIMS NA from Last 3 Months Advance Directives For more information, please contact: [phone] Documents on File Type Date Recorded Patient Automatic Profile Sander Operator Expl anation Advance Directives 08/22/2022 9:15 AM Rea Scooby PhillipsRolskyla Albaro Jacqueline HCPOA/ADVOCATE/AGENT/R EPRESENTATIVE/SURROGAT E Latest Code Status on File Code Status Date Activated Date Inactivated Comments Full Code 08/22/2022 3:36 PM 08/27/2022 2:15 PM Question Answer Comments Full Code: Not Discussed Due to: Patient not available Healthcare Agents on File Name Relationship Healthcare Agent Relationship Communication Rea Sousa Sister Health Care Agent [email or web address] Abraham Jacqueline Brothlisa Health Care Agent [email or web address] Alex Albaro Phillips Brother First Altern ate Health Care Agent Care Teams Head Custodian Relationship Specialty Start Date End Date Elsewhere, Pcp PCP - General Family Medicine 01/03/18
--- OUTSIDE RECORDS SUMMARY | 2023-09-23 10:09 | XMS_ITS | Clinical Summary ---
Author Name Unknown Organization [facility] Address [address] [place] [address] Care Team Providers Care Rating Specialist Name Role Phone Elsewhere, Pcp Primary Care Provider Unavailabl e Source Comments Patient records contain information from all sites at [facility]. For routine questions regarding patient records, call [phone] during business hours, M-F 8:00 AM - 5:00 PM Central Time. Record requests for emergency care only can be directed to [phone] at any time.[facility] Allergies Active Allergy Reactions Criticality Noted Date [...] by mouth 3 (three) times a week. Qjpuuq-Tvodxyfrg-Yn iday 0 03/14/2022 Active B complex-vitamins (BALANCE [...] Overview: Added automatically from request for surgery [id number] Encounters Date Type Department Care Team Description 09/18/2023 Clinical Communication Division of Thoracic Surgery in [place], [place] [address] [place] [address] Rosaura Claudio M.D., Ph.D. 07/08/2023 Orders Only Division of Thoracic Surgery in [place], [place] [address] [place] [address] Susan Jarrett R.N. Thymoma (Primary Dx) from [...] care, and heating? Not very hard 06/04/2022 [facility] of Occupat ional Health - Occupational [...] Master's degree (e.g., MA, MS, Milly, MEd, RECREATION PROGRAMMER, MADELYN) 06/04/2022 Sex and Gender Information Value Date Recorded Sex Assigned at Female 06/04/2022 4:58 PM CDT Gender Identity Female 06/04/2022 4:58 PM CDT Sexual Orientation Straight 06/04/2022 4: 58 PM CDT Last Filed Vital Signs Vital Sign Reading Time Taken Comments Blood Pressure 125/53 08/27/2022 10:15 AM CLAY ARTIST Pulse 82 08/27/2022 10:15 AM CLAY ARTIST Temperature 36.8 ??C (98.2 ??F) 08/27/2022 10:[address] Respiratory Rate 16 08/27/2022 10:15 AM CLAY ARTIST Oxygen Saturation 98% 08/27/2022 10:15 AM CLAY ARTIST Inhaled Oxygen Concentration - - Weight 67.6 kg (149 lb 0.5 oz) 08/26/2022 9:15 A M CLAY ARTIST Height 173.9 cm (5' 8.47) 08/22/2022 7:06 AM CS T Body Mass Index 22.35 08/22/2022 7:06 AM CLAY ARTIST Plan of Treatment Upcoming Encounters Date Type Department Care Team (Late st Contact Info) Description 11/11/2023 10:40 AM CDT Appointment Department of Laboratory Medicine and Pathology, [facility] in [place], [place] [address] [place] [phone] Radha Keen APRN, C.N.P., M.S.N. [address] [place] [phone] 11/11/2023 11:15 AM CDT Appointment Department of Radiology, [place], [place] [address] [place] [phone] Radha Keen APRN, Sandip.N.P., M.S.N. [address] [place] [phone] 11/11/2023 1:00 PM CDT Office Visit Division of Thoracic Surgery in [place], [place] [address] [place] [phone] Radha Keen APRN, C.N.P., M.S.N. [address] [place] [phone] Health Maintenance Due Date Last Done Comments [...] history exists Medical Devices Implanted Type Area Plumbing Assembler Device Identifier Shelf Expiration Date Model / Serial / Lot Clp Hrzn Ti 6 Clp Lg Orng - [id number] Implanted:Qty: 1 on 08/22/2022 by Rosaura Claudio M.D., Ph.D. at [facility] Hardware e.g. pins/screws/r ods Bilims [id number] 04/16/2027 [id number] / / [id number] Ocular Lens Ocular Lens Eye Orthopedic Other Orthopedic Other Wrist Procedures Procedure Name Priority Date/Time Associated Diagnosis Comments OUTSIDE DX CHEST Routine 09/18/2023 3:05 AM CLAY ARTIST OUTSIDE CT BODY Routine 09/17/2023 5:30 PM CLAY ARTIST OUTSIDE DX CHEST Routine 09/14/2023 9:10 PM CLAY ARTIST OUTSIDE DX CHEST Routine 09/07/2023 12:3 5 PM CLAY ARTIST OUTSIDE CT BODY Routine 09/04/2023 11:10 PM CLAY ARTIST OUTSIDE DX CHEST Routine 09/04/2023 8:35 PM CLAY ARTIST from Last 3 Months Results * XR CHEST 1V-Outside Chest Xray (09/18/2023 3:05 AM CLAY ARTIST) Only the most recent of4 resultswithin the time period is included. Narrative [facility] - 09/19/2023 2:52 PM CLAY ARTIST This order has been created and auto-finalized to support the import of outside images. If available, original interpretation can be found on the Media Tab in Chart Review, in Document Viewer, or as an image in QREADS. If a re-interpretation or overread is required please follow defined workflow. ?? Provider Not In System IMG DIAGNOSTIC IM AGING PROCEDURES Performing Organization Address [facility] Co de Phone Number IIMS NA * CT Angio Chest PE Protocol-Outside CT Body (09/17/2023 5:30 PM CLAY ARTIST) Only the most recent of2 resultswithin the time period is included. Narrative [facility] - 09/19/2023 3:01 PM CLAY ARTIST This order has been created and auto-finalized to support the import of outside images. If available, original interpretation can be found on the Media Tab in Chart Review, in Document Viewer, or as an image in QREADS. If a re-interpretation or overread is required please follow defined workflow. ?? Provider Not In System IMG CT PROCEDURES Performing Organization Address [facility] de Phone Number IIMS NA from Last 3 Months Advance Directives For more information, please contact: [phone] Documents on File Type Date Recorded Patient Product Distribution Specialist Expl anation Advance Directives 08/22/2022 9:15 AM Rea Phillips HCPOA/ADVOCATE/AGENT/R EPRESENTATIVE/SURROGAT E Latest Code Status on File Code Status Date Activated Date Inactivated Comments Full Code 08/22/2022 3:36 PM 08/27/2022 2:15 PM Question Answer Comments Full Code: Not Discussed Due to: Patient not available Healthcare Agents on File Name Relationship Healthcare Agent Relationship Communication Rea Duran Health Care Agent [email or web address] Abraham Jacqueline Leavitt Health Care Agent [email or web address] Alex Irvin Jacqueline Leavitt First Altern [facility] Health Care Agent Care Teams Rating Specialist Relationship Specialty Start Date End Date Elsewhere, Pcp PCP - General Family Medicine 01/03/18
--- OUTSIDE RECORDS SUMMARY | 2023-09-23 10:09 | XMS_ITS | Encounter Summary ---
Author Name Unknown Organization [facility] Address [address] [place] [address] Care Team Providers Care Primary Health Care Nurse Name Role Phone Elsewhere, Pcp Primary Care Provider Unavailabl e Reason for Referral * Outpatient (Routine) - Authorized Specialty Diagnoses / Procedures Referred By Joe t Referred To Contact Thoracic Surgery Radha Keen APRN, C.N.PYesika, M.S.N. [address] [place] [phone] [facility] Referral ID Status Reason Start Date Expiration Date V isits Requested Visits Authorized [id number] Authorized 07/08/2023 07/07/2026 1 1 Scheduling Instructions With Radha Keen NP after CT scan LE BEVELER * MRI/CAT/PET Scan (Routine) - Authorized Specialty Diagnoses / Procedures Referred By Contac t Referred To Contact Radiology Diagnoses Thymoma Procedures CT Chest with IV Contrast Radha Keen APRN, C.N.PYesika, M.S.N. [address] [place] [phone] [place] [facility] Referral ID Status Reason Start Date Expiration Date V isits Requested Visits Authorized [id number] Authorized 07/08/2023 07/07/2024 1 1 LE BEVELER Encounter Details Date Type Department Care Team (Late st Contact Info) Description 07/08/2023 Orders Only Division of Thoracic Surgery in [place], [place] [address] [place] [phone] Susan Jarrett RNazia Thymoma (Primary Dx) Social [...] often do you attend chur ch or protestant services? Never 06/04/2022 Do you belong to any clubs o r organizations such as restorationism groups, unions, fraternal or athletic groups, [...] and heating? Not very hard 06/04/[address] [facility] [place] of Occupat ional Health - Occupational Stress [...] or slept in a mcfp (including now)? No 06/04/2022 Nutrition Answer Date [...] Master's degree (e.g., DICK, MS, Milly, MEd, FISHER CRAB, MADELYN) 06/04/2022 Sex and Gender Information Value Date Recorded Sex Assigned at Female 06/04/2022 4:58 PM CDT Gender Identity Female 06/04/2022 4:58 PM CDT Sexual Orientation Straight 06/04/2022 4: 58 PM CDT documented as of this encounter Plan of Treatment Upcoming Encounters Date Type Department Care Team (Late st Contact Info) Description 11/11/2023 10:40 AM CDT Appointment Department of Laboratory Medicine and Pathology, [place], [place] [address] [place] [phone] Radha Keen APRN, C.N.P., M.S.N. [address] [place] [phone] 11/11/2023 11:15 AM CDT Appointment Department of Radiology, [place], [place] [address] [place] [phone] Radha Keen APRN, C.N.P., M.S.N. [address] [place] [phone] 11/11/2023 1:00 PM CDT Office Visit Division of Thoracic Surgery in [place], [place] 200 [place] [phone] Radha Keen APRN, C.N.P., M.S.N. [address] [place] [address] Scheduled Orders Name Type Priority Associated Diagnoses [...] Primary documented in this encounter Care Teams Primary Health Care Nurse Relationship Specialty Start Date End Date Elsewhere, Pcp PCP - General Family Medicine 01/03/18 documented as of this encounter
--- OUTSIDE RECORDS SUMMARY | 2023-09-23 10:09 | XMS_ITS | Encounter Summary ---
Author Name Unknown Organization [facility] Address [address] [place] [address] Care Team Providers Care Lining Caser Name Role Phone Elsewhere, Pcp Primary Care Provider Unavailabl e Encounter Details Date Type Department Care Team (Latest Contact Info) Description 05/02/2023 8:50 AM CDT - 05/02/2023 10:20 AM CDT Hospital Encounter Department of Laboratory Medicine and Pathology, [facility], in [place], [place] [address] [place] [address] Abril Nash P.A.-C. [address] [place] [phone] Mass Mediastinal Discharge Disposition: Home or Self [...] How often do you attend chur or restoration services? Never 06/04/2022 Do you belong to [...] care, and heating? Not very hard 06/04/2022 [facility] of Occupat ional Health - Occupational Stress [...] Master's degree (e.g., MA, MS, Milly, MEd, SALES EXHIBITOR, MADELYN) 06/04/2022 Sex and Gender Information Value [...] by mouth 3 (three) times a week. Scimbd-Xyixjsikg-Brhcjf 0 03/14/2022 documented as of this encounter Plan of Treatment Upcoming Encounters Date Type Department Care Team (Late st Contact Info) Description 11/11/2023 10:40 AM CDT Appointment Department of Laboratory Medicine and Pathology, [place], [place] [address] [place] [phone] Radha Keen APRN, C.N.P., M.S.N. [address] [place] [phone] 11/11/2023 11:15 AM CDT Appointment Department of Rad[facility], [facility] [place], [place] [address] [place] [phone] Radha Keen APRN, Sandip.N.P., M.S.N. [address] [place] [phone] 11/11/2023 1:00 PM CDT Office Visit Division of Thoracic Surgery in [place], [place] [address] [place] [phone] Radha Keen APRN, C.N.P., M.S.N. [address] [place] [phone] documented as of this encounter Procedures Procedure [...] Abril Nash P.A.-C. LAB BLOOD ADD- ON [facility] [address] [place] [address], [facility] DTL [facility] [address] [place] [address] documented in this encounter Visit Diagnoses Diagnosis Mass Mediastinal documented in this encounter Care Teams Lining Caser Relationship Specialty Start Date End Date Elsewhere, Pcp PCP - General Family Medicine 01/03/18 documented as of this encounter
--- OUTSIDE RECORDS SUMMARY | 2023-09-23 10:09 | XMS_ITS | Encounter Summary ---
Author Name Unknown Organization [facility] Address [address] [place] [address] Care Team Providers Care Sales And Customer Relations Rep Name Role Phone Elsewhere, Pcp Primary Care Provider Unavailabl e Encounter Details Date Type Department Care Team (Latest Contact Info) Description 04/18/2023 Clinical Communication Department of Cardiovascular Surgery in [place], [place] [address] [place] [phone] Rosaura Claudio M.D., Ph.D. [address] [place] [phone] Social History Tobacco Use Types Packs/Day Years [...] How often do you attend chur or muslim services? Never 06/04/2022 Do you belong to [...] care, and heating? Not very hard 06/04/2022 [facility] [place] of Occupat ional Health - Occupational Stress [...] Master's degree (e.g., MA, MS, Milly, MEd, ASSEMBLER GARMENT FORM, MADELYN) 06/04/2022 Sex and Gender Information Value Date Recorded Sex Assigned at Female 06/04/2022 4:58 PM CDT Gender Identity Female 06/04/2022 4:58 PM CDT Sexual Orientation Straight 06/04/2022 4: 58 PM CDT documented as of this encounter Plan of Treatment Upcoming Encounters Date Type Department Care Team (Late st Contact Info) Description 11/11/2023 10:40 AM CDT Appointment Department of Laboratory Medicine and Pathology, [facility] in [place], [place] [address] [place] [phone] Radha Keen APRN, C.N.P., M.S.N. [address] [place] [phone] 11/11/2023 11:15 AM CDT Appointment Department of Radiology, [facility] in [place], [place] [address] [place] [address] Radha Keen APRN, C.N.P., M.S.N. [address] [place] [phone] 11/11/2023 1:00 PM CDT Office Visit Division of Thoracic Surgery in [place], [place] [address] [place] [phone] Radha Keen APRN, C.N.P., M.S.N. [address] [place] [phone] documented as of this encounter Visit Diagnoses Not on filedocumented in this encounter Care Teams Sales And Customer Relations Rep Relationship Specialty Start Date End Date Elsewhere, Pcp PCP - General Family Medicine 01/03/18 documented as of this encounter
--- OUTSIDE RECORDS SUMMARY | 2023-09-23 10:09 | XMS_ITS | Encounter Summary ---
Author Name Unknown Organization [facility] Address [address] [place] [address] Care Team Providers Care Dental Chairside Assistant Name Role Phone Elsewhere, Pcp Primary Care Provider Unavailabl e Reason for Referral * MRI/CAT/PET Scan (Routine) - Closed Specialty Diagnoses / Procedures Referred By Joe allison Referred To Contact Radiology Diagnoses Mass Mediastinal Procedures CT Chest with IV Contrast Abril Nash P.A.-C. [address] [place] [address] [facility] Referral ID Status Reason Start Date Expiration Date Visits Re quested Visits Authorized [id number] Closed 10/30/2022 10/30/2023 1 1 Reason for Visit * MRI/CAT/PET Scan (Routine) - Closed Specialty Diagnoses / Procedures Referred By Joe allison Referred To Contact Radiology Diagnoses Mass Mediastinal Procedures CT Chest with IV Contrast Abril Nash P.A.-C. [address] [place] [address] [place] [facility] Referral ID Status Reason Start Date Expiration Date Visits Re quested Visits Authorized [id number] Closed 10/30/2022 10/30/2023 1 1 Encounter Details Date Type Department Care Team (Latest Contact Info) Description 05/02/2023 10:21 AM CDT - 05/02/2023 11:59 PM CDT Hospital Encounter Department of Radiology, [facility], in [place], [place] [address] [place] [address] Abril Nash P.A.-C. [address] [place] [address] Mass Mediastinal Discharge Disposition: Home or Self [...] any clubs o r organizations such as confucianist groups, unions, fraternal or athletic groups, [...] care, and heating? Not very hard 06/04/2022 [facility] [place] of Occupat ional Health - Occupational Stress [...] Master's degree (e.g., MA, MS, Milly, MEd, WORKFORCE STAFFING ADVISOR, MADELYN) 06/04/2022 Sex and Gender Information [...] by mouth 3 (three) times a week. Simfbi-Wmiqvdkim-Sdlrej 0 03/14/2022 documented as of this encounter Plan of Treatment Upcoming Encounters Date Type Department Care Team (Late st Contact Info) Description 11/11/2023 10:40 AM CDT Appointment Department of Laboratory Medicine and Pathology, [facility] in [place], [place] 200 [place] [address] Radha Keen APRN, C.N.P., M.S.N. [address] [place] [phone] 11/11/2023 11:15 AM CDT Appointment Department of Radiology, [facility], in [place], [place] [address] [place] [address] Radha Keen APRN, C.N.P., M.S.N. [address] [place] [phone] 11/11/2023 1:00 PM CDT Office Visit Division of Thoracic Surgery in [place], [place] [address] [place] [address] Radha Keen APRN, C.NCasandra., M.S.N. [address] [place] [phone] documented as of this encounter Procedures Procedure [...] mL documented in this encounter Care Teams Dental Chairside Assistant Relationship Specialty Start Date End Date Elsewhere, Pcp PCP - General Family Medicine 01/03/18 documented as of this encounter
--- OUTSIDE RECORDS SUMMARY | 2023-09-23 10:09 | XMS_ITS | Encounter Summary ---
Author Name Unknown Organization [facility] Address [address] [place] [address] Care Team Providers Care Business Management Manager Name Role Phone Elsewhere, Pcp Primary Care Provider Unavailabl e Reason for Visit * Outpatient (Routine) - Closed Specialty Diagnoses / Procedures Referred By Joe allison Referred To Contact Thoracic Surgery Abril Nash P.A.-C. [address] [place] [phone] [facility] Referral ID Status Reason Start Date Expiration Date Visits Re quested Visits Authorized [id number] Closed 10/30/2022 10/29/2025 1 1 Encounter Details Date Type Department Care Team (Late st Contact Info) Description 05/02/2023 1:00 PM CDT Office Visit Division of Thoracic Surgery in [place], [place] [address] [place] [phone] Radha Keen APRN, C.N.P., M.S.N. [address] [place] [phone] Thymoma (Primary Dx) Social History Tobacco Use [...] often do you attend chur ch or restoration services? Never 06/04/2022 Do you belong to any clubs o r organizations such as nondenominational groups, unions, fraternal or athletic groups, or [...] care, and heating? Not very hard 06/04/2022 [facility] [place] of Occupat ional Health - Occupational Stress [...] Master's degree (e.g., MA, MS, Milly, MEd, SHAKE FEEDER, MADELYN) 06/04/2022 Sex and Gender Information Value [...] Appointment Department of Laboratory Medicine and Pathology, [facility] in [place], [place] [address] [place] [phone] Radha Keen APRN, C.N.P., M.S.N. [address] [place] [phone] 11/11/2023 11:15 AM CDT Appointment Department of Radiology, [place], [place] [address] [place] [phone] Radha Keen APRN, C.N.P., M.S.N. [address] [place] [phone] 11/11/2023 1:00 PM CDT Office Visit Division of Thoracic Surgery in [place], [place] [address] [place] [address] Radha Keen APRN, C.N.P., M.S.N. [address] [place] [phone] documented as of this encounter Visit Diagnoses Diagnosis Thymoma- Primary documented in this encounter Care Teams Business Management Manager Relationship Specialty Start Date End Date Elsewhere, Pcp PCP - General Family Medicine 01/03/18 documented as of this encounter
--- OUTSIDE RECORDS SUMMARY | 2023-09-23 10:09 | XMS_ITS | Encounter Summary ---
Author Name Unknown Organization [facility] Address [address] [place] [address] Care Team Providers Care Clinical Trials Assistant Name Role Phone Elsewhere, Pcp Primary Care Provider Unavailabl e Encounter Details Date Type Department Care Team (Late st Contact Info) Description 10/26/2022 Clinical Communication Division of Thoracic Surgery in [place], [place] [address] [place] [address] Susan Jarrett, RYesikaN. Social History Tobacco Use [...] How often do you attend chur or mu-ism services? Never 06/04/2022 Do you belong to any clubs o r organizations such as adventist groups, unions, fraternal or athletic groups, or [...] care, and heating? Not very hard 06/04/2022 [facility] of Occupat ional Health - Occupational Stress [...] Master's degree (e.g., MA, MS, Milly, MEd, PHYSICAL CHEMISTRY TEACHER, MADELYN) 06/04/2022 Sex and Gender Information Value Date Recorded Sex Assigned at Female 06/04/2022 4:58 PM CDT Gender Identity Female 06/04/2022 4:58 PM CDT Sexual Orientation Straight 06/04/2022 4: 58 PM CDT documented as of this encounter Miscellaneous Notes * Addendum Note - Suly Mansfield APRN, C.N.P. - 10/26/2022 10:09 AM STEEL FITTER Addended by: SULY MANSFIELD on: 10/26/2022 10:09 AM Modules accepted: Orders L FITTER * Telephone Encounter - Susan Jarrett R.N. - 10/26/2022 9:43 AM STEEL FITTER PLAN The following information was provided: Patient [...] following references were used: nursing clinical judgement L FITTER documented in this encounter Plan of Treatment Upcoming Encounters Date Type Department Care Team (Late st Contact Info) Description 11/11/2023 10:40 AM CDT Appointment Department of Laboratory Medicine and Pathology, [facility], in [place], [place] [address] [place] [phone] Suly Mansfield APRN, Sandip.N.Avery., M.S.N. [address] [place] [phone] 11/11/2023 11:15 AM CDT Appointment Department of Radiology, [facility], in [place], [place] [address] [place] [address] Suly Mansfield APRN, C.N.P., M.S.N. [address] [place] [phone] 11/11/2023 1:00 PM CDT Office Visit Division of Thoracic Surgery in [place], [place] [address] [place] [address] Suly Mansfield APRN, C.N.P., M.S.N. [address] [place] [phone] documented as of this encounter Visit Diagnoses Not on filedocumented in this encounter Care Teams Clinical Trials Assistant Relationship Specialty Start Date End Date Elsewhere, Pcp PCP - General Family Medicine 01/03/18 documented as of this encounter
--- OUTSIDE RECORDS SUMMARY | 2023-09-23 10:10 | XMS_ITS | Encounter Summary ---
Author Name Unknown Organization [facility] Address [address] [place] [address] Care Team Providers Care Laceworker Name Role Phone Elsewhere, Pcp Primary Care Provider Unavailabl e Reason for Visit * Reason Onset Date Comments medication refill 10/22/2022 Encounter Details Date Type Department Care Team (Latest Contact Info) Description 10/22/2022 Clinical Communication Department of Cardiovascular Surgery in [place], [place] [address] [place] [phone] Rosaura Claudio M.D., Ph.D. [address] [place] [phone] medication refill Social History Tobacco Use Types [...] How often do you attend chur or voodoo services? Never 06/04/2022 Do you belong to [...] Not very hard 06/04/2022 [facility] [place] of Occupat ional Health - Occupational Stress [...] Master's degree (e.g., MA, MS, Milly, MEd, FOAM DISPENSER, MADELYN) 06/04/2022 Sex and Gender Information Value [...] will not go through. Sent portal message. CIATE GENETICS PROFESSOR * Telephone Encounter - Arlette Khan - 10/22/2022 3:15 PM CST Patient is requesting Lyrica refill sent to [facility] in [place]. CIATE GENETICS PROFESSOR documented in this encounter Plan of Treatment Upcoming Encounters Date Type Department Care Team (Late st Contact Info) Description 11/11/2023 10:40 AM CDT Appointment Department of Laboratory Medicine and Pathology, [facility] in [place], [place] [address] [place] [phone] Radha Keen APRN, C.N.P., M.S.N. [address] [place] [phone] 11/11/2023 11:15 AM CDT Appointment Department of Radiology, [facility] in [place], [place] [address] [place] [phone] Radha Keen APRN, Sandip.N.P., M.S.N. [address] [place] [phone] 11/11/2023 1:00 PM CDT Office Visit Division of Thoracic Surgery in [place], [place] [address] [place] [phone] Radha Keen APRN, C.N.P., M.S.N. [address] [place] [phone] documented as of this encounter Visit Diagnoses Not on filedocumented in this encounter Care Teams Laceworker Relationship Specialty Start Date End Date Elsewhere, Pcp PCP - General Family Medicine 01/03/18 documented as of this encounter
--- OUTSIDE RECORDS SUMMARY | 2023-09-23 10:10 | XMS_ITS | Encounter Summary ---
Author Name Unknown Organization [facility] Address [address] [place] [address] Care Team Providers Care Narcotics And Vice Detective Name Role Phone Elsewhere, Pcp Primary Care Provider Unavailabl e Encounter Details Date Type Department Care Team (Late st Contact Info) Description 10/03/2022 Clinical Communication Division of Thoracic Surgery in [place], [place] [address] [place] [phone] Rosaura Claudio M.D., Ph.D. [address] [place] [phone] Social History Tobacco Use Types Packs/Day Years [...] often do you attend chur ch or temple services? Never 06/04/2022 Do you belong to any clubs o r organizations such as anabaptist groups, unions, [employer] or athletic groups, or school groups? No [...] and heating? Not very hard 06/04/2022 [facility] [place] of Occupat ional Health - Occupational Stress [...] Master's degree (e.g., MA, MS, Milly, MEd, CROP FARM HELPER, MADELYN) 06/04/2022 Sex and Gender Information Value Date Recorded Sex Assigned at Female 06/04/2022 4:58 PM CDT Gender Identity Female 06/04/2022 4:58 PM CDT Sexual Orientation Straight 06/04/2022 4: 58 PM CDT documented as of this encounter Miscellaneous Notes * Telephone Encounter - Radha Keen APRN, C.N.P. - 10/05/2022 1:34 PM CST Left another message. SCIENTIST * Telephone Encounter - Radha Keen APRN, C.N.P. - 10/04/2022 9:46 AM CST Left message SCIENTIST documented in this encounter Plan of Treatment Upcoming Encounters Date Type Department Care Team (Late st Contact Info) Description 11/11/2023 10:40 AM CDT Appointment Department of Laboratory Medicine and Pathology, [place], [place] [address] [place] [phone] Radha Keen APRN, C.N.P., M.S.N. [address] [place] [phone] 11/11/2023 11:15 AM CDT Appointment Department of Radiology, [facility] in [place], [place] [address] [place] [phone] Radha Keen APRN, Sandip.N.P., M.S.N. [address] [place] [phone] 11/11/2023 1:00 PM CDT Office Visit Division of Thoracic Surgery in [place], [place] [address] [place] [phone] Radha Keen APRN, C.N.P., M.S.N. [address] [place] [phone] documented as of this encounter Visit Diagnoses Not on filedocumented in this encounter Care Teams Narcotics And Vice Detective Relationship Specialty Start Date End Date Elsewhere, Pcp PCP - General Family Medicine 01/03/18 documented as of this encounter
--- OUTSIDE RECORDS SUMMARY | 2023-09-23 10:10 | XMS_ITS | Encounter Summary ---
Author Name Unknown Organization [facility] Address [address] [place] [address] Care Team Providers Care Treating Engineer Name Role Phone Elsewhere, Pcp Primary Care Provider Unavailabl e Encounter Details Date Type Department Care Team (Late st Contact Info) Description 09/20/2022 Orders Only Division of Thoracic Surgery in [place], [place] [address] [place] [phone] Mookie Jaimes III, P.AYesika-Angela [address] [place] [phone] Social History Tobacco Use Types Packs/Day Years [...] 06/04/2022 How often do you attend chur [employer] or protestant services? Never 06/04/2022 Do you belong to any clubs o r organizations such as jain groups, unions, fraternal or athletic groups, or [...] care, and heating? Not very hard 06/04/2022 [facility] [place] of Occupat ional Health - Occupational Stress [...] Master's degree (e.g., MA, MS, Milly, MEd, AUTO WASHER, MADELYN) 06/04/2022 Sex and Gender Information Value Date Recorded Sex Assigned at Female 06/04/2022 4:58 PM CDT Gender Identity Female 06/04/2022 4:58 PM CDT Sexual Orientation Straight 06/04/2022 4: 58 PM CDT documented as of this encounter Plan of Treatment Upcoming Encounters Date Type Department Care Team (Late st Contact Info) Description 11/11/2023 10:40 AM CDT Appointment Department of Laboratory Medicine and Pathology, [facility], in [place], [place] [address] [place] [phone] Radha Keen APRN, C.N.P., M.S.N. [address] [place] [phone] 11/11/2023 11:15 AM CDT Appointment Department of Radiology, [facility], in [place], [place] [address] [place] [address] Radha Keen APRN, C.NCasandra., M.S.N. [address] [place] [phone] 11/11/2023 1:00 PM CDT Office Visit Division of Thoracic Surgery in [place], [place] [address] [place] [phone] Radha Keen APRN, Sandip.N.P., M.S.N. [address] [place] [phone] documented as of this encounter Visit Diagnoses Not on filedocumented in this encounter Care Teams Treating Engineer Relationship Specialty Start Date End Date Elsewhere, Pcp PCP - General Family Medicine 01/03/18 documented as of this encounter
--- OUTSIDE RECORDS SUMMARY | 2023-09-23 10:10 | XMS_ITS | Encounter Summary ---
Author Name Unknown Organization [facility] Address [address] [place] [address] Care Team Providers Care Central Processing Technician Name Role Phone Elsewhere, Pcp Primary Care Provider Unavailabl e Reason for Visit * Reason Onset Date Comments Pre-visit Intake 10/12/2022 Encounter Details Date Type Department Care Team (Latest Contact Info) Description 10/12/2022 11:30 AM APPLICATIONS SUPPORT ENGINEER Clinical Communication Virtual Review in [place], [place] 200 [place], [place] [phone] Pre-visit Intake Social History Tobacco Use Types [...] How often do you attend chur or temple services? Never 06/04/2022 Do you belong to any clubs o r organizations such as oriental orthodox groups, unions, fraternal or athletic groups, [...] care, and heating? Not very hard 06/04/2022 [facility] - Occupational Stress Questionnaire [...] Master's degree (e.g., MA, MS, Milly, MEd, OFFICE AUTOMATION TECHNICIAN, MADELYN) 06/04/2022 Sex and Gender Information [...] Appointment Department of Laboratory Medicine and Pathology, [facility], in [place], [place] [address] [place] [phone] Radha Keen APRN, C.N.P., M.S.N. [address] [place] [phone] 11/11/2023 11:15 AM CDT Appointment Department of Radiology, [facility], in [place], [place] [address] [place] [phone] Radha Keen APRN, C.N.P., M.S.N. [address] [place] [phone] 11/11/2023 1:00 PM CDT Office Visit Division of Thoracic Surgery in [place], [place] [address] [place] [phone] Radha Keen APRN, C.NLuz Maria, M.S.N. [address] [place] [phone] documented as of this encounter Visit Diagnoses Not on filedocumented in this encounter Care Teams Central Processing Technician Relationship Specialty Start Date End Date Elsewhere, Pcp PCP - General Family Medicine 01/03/18 documented as of this encounter
--- OUTSIDE RECORDS SUMMARY | 2023-09-23 10:10 | XMS_ITS | Encounter Summary ---
Author Name Unknown Organization [facility] Address [address] [place] [address] Care Team Providers Care Sludge Filtration Operator Name Role Phone Elsewhere, Pcp Primary Care Provider Unavailabl e Reason for Visit * Reason Comments Med Refill Encounter Details Date Type Department Care Team (Late st Contact Info) Description 09/20/2022 Clinical Communication Division of Thoracic Surgery in [place], [place] [address] [place] [phone] Rosaura Claudio M.D., Ph.D. [address] [place] [phone] Med Refill Social History Tobacco Use Types [...] How often do you attend chur or orthodox services? Never 06/04/2022 Do you belong to any clubs o r organizations such as protestant groups, unions, fraternal or athletic groups, or [...] Not very hard 06/04/2022 [facility] [place] of Occupat ional Health - Occupational Stress [...] Master's degree (e.g., MA, MS, Milly, MEd, GEAR TECHNICIAN, MADELYN) 06/04/2022 Sex and Gender Information [...] pharmacy and portal message sent to patient. ITY ASSURANCE SPECIALIST * Addendum Note - Suly Mansfield APRN, C.N.P. - 09/24/2022 4:50 PM QUALITY ASSURANCE SPECIALIST Addended by: SULY MANSFIELD on: 09/24/2022 04:50 PM Modules accepted: Orders ITY ASSURANCE SPECIALIST * Telephone Encounter - Arlette Khan - 09/24/2022 3:03 PM CST Pat called back and is interested in trying gabapentin but she has some ?s and would like to talk with you. ITY ASSURANCE SPECIALIST * Telephone Encounter - Suly Mansfield APRN, [...] the pain clinic for consideration of injection. ITY ASSURANCE SPECIALIST * Telephone Encounter - BillNickierios Mcnair - 09/20/2022 4:04 PM CST Patient is still having breakthrough pain alternating Tylenol and ibuprofen every 6 hours. She is wanting to discuss pain issues, what she can do to lessen the pain, and also requesting some pain medication. ITY ASSURANCE SPECIALIST documented in this encounter Plan of Treatment Upcoming Encounters Date Type Department Care Team (Late st Contact Info) Description 11/11/2023 10:40 AM CDT Appointment Department of Laboratory Medicine and Pathology, [facility] in [place], [place] [address] [place] [phone] Suly Mansfield APRN, C.N.P., M.S.N. [address] [place] [phone] 11/11/2023 11:15 AM CDT Appointment Department of Radiology, [facility] in [place], [place] [address] [place] [phone] Suly Mansfield APRN, Sandip.N.P., M.S.N. [address] [place] [phone] 11/11/2023 1:00 PM CDT Office Visit Division of Thoracic Surgery in [place], [place] [address] [place] [phone] Suly Mansfield APRN, C.N.P., M.S.N. [address] [place] [phone] documented as of this encounter Visit Diagnoses Not on filedocumented in this encounter Care Teams Sludge Filtration Operator Relationship Specialty Start Date End Date Elsewhere, Pcp PCP - General Family Medicine 01/03/18 documented as of this encounter
--- OUTSIDE RECORDS SUMMARY | 2023-09-23 10:10 | XMS_ITS | Encounter Summary ---
Author Name Unknown Organization [facility] Address [address] [place] [address] Care Team Providers Care Quality Control Tech Name Role Phone Elsewhere, Pcp Primary Care Provider Unavailabl e Reason for Referral * Outpatient (Routine) - Closed Specialty Diagnoses / Procedures Referred By Joe allison Referred To Contact Thoracic Surgery Abril Nash P.A.-C. 200 [place] [phone] [facility] Referral ID Status Reason Start Date Expiration Date Visits Re quested Visits Authorized [id number] Closed 10/30/2022 10/29/2025 1 1 CROWN POUNCER * MRI/CAT/PET Scan (Routine) - Closed Specialty Diagnoses / Procedures Referred By Joe allison Referred To Contact Radiology Diagnoses Mass Mediastinal Procedures CT Chest with IV Contrast Abril Nash P.A.-C. [address] [place] [phone] [facility] Referral ID Status Reason Start Date Expiration Date Visits Re quested Visits Authorized [id number] Closed 10/30/2022 10/30/2023 1 1 CROWN POUNCER Reason for Visit * Outpatient (Routine) - Closed Specialty Diagnoses / Procedures Referred By Joe t Referred To Contact Video Medicine Diagnoses Mass Mediastinal Delaney Wade M.D. [facility] Referral ID Status Reason Start Date Expiration Date Visits Re quested Visits Authorized [id number] Closed 08/27/2022 08/27/2023 1 1 Encounter Details Date Type Department Care Team (Late st Contact Info) Description 10/15/2022 11:00 AM HAND CROWN POUNCER Telemedicine Division of Thoracic Surgery in [place], [place] [address] [place] [phone] Abril Nash P.A.-C. [address] [place] [phone] Mass Mediastinal Social History Tobacco Use Types [...] often do you attend chur ch or hindu services? Never 06/04/2022 Do you belong to [...] care, and heating? Not very hard 06/04/2022 [facility] of Occupat ional Health - Occupational Stress [...] Master's degree (e.g., MA, MS, Milly, MEd, TANK INSULATOR RUBBER, MADELYN) 06/04/2022 Sex and Gender Information Value Date Recorded Sex Assigned at Female 06/04/2022 4:58 PM CDT Gender Identity Female 06/04/2022 4:58 PM CDT Sexual Orientation Straight 06/04/2022 4: 58 PM CDT documented as of this encounter Progress Notes * Abril Nash P.A.-C. - 10/15/2022 11:00 AM CST SUBJECTIVE Alexia Pihllips is a 72 y.o. female who presents [...] it was necessary. Postoperative visit no charge. CROWN POUNCER documented in this encounter Plan of Treatment Upcoming Encounters Date Type Department Care Team (Late st Contact Info) Description 11/11/2023 10:40 AM CDT Appointment Department of Laboratory Medicine and Pathology, [facility] in [place], [place] [address] [place] [phone] Radha Keen APRN, Sandip.NYesikaP., M.S.N. [address] [place] [phone] 11/11/2023 11:15 AM CDT Appointment Department of Radiology, [facility] in [place], [place] [address] [place] [phone] Radha Keen APRN, AngelaNYesikaP., M.S.N. [address] [place] [phone] 11/11/2023 1:00 PM CDT Office Visit Division of Thoracic Surgery in [place], [place] [address] [place] [phone] Radha Keen APRN, C.NYesikaPYesika, M.S.N. [address] [place] [phone] Scheduled Referrals Name Type Priority Associated Diagnoses [...] mildly increased in size. Abril Nash P.A.-C. [facility] PROCEDU RES * Creatinine with Estimated GFR (05/02/2023 9:09 AM CDT) Creatinine 0.79 0.59 - 1.04 mg/dL 05/02/2023 10:02 AM CDT DTL Estimated GFR (eGFR) 80 >=60 mL/min/BSA 05/02/2023 10:02 AM CDT DTL Comment: Estimated GFR calculated using the 2020 CKD_EPI creatinine equation. Blood (Blood, Venous) 05/02/2023 9:09 AM CDT 05/02/2023 9:44 AM CDT Abril Nash P.A.-C. LAB BLOOD ADD- ON [facility] [place] 200 [place] [address], [facility] DTL [facility] 200 [place] [address] documented in this encounter Visit Diagnoses Diagnosis Mass Mediastinal Mass Mediastinal documented in this encounter Care Teams Quality Control Tech Relationship Specialty Start Date End Date Elsewhere, Pcp PCP - General Family Medicine 01/03/18 documented as of this encounter
--- OUTSIDE RECORDS SUMMARY | 2023-09-23 10:10 | XMS_ITS | Data Portability ---
Author Name Unknown Address [address] [place] [address] Phone [phone] Organization [facility] Address [facility] [address] [place] [address] Care Team Providers Care Assistant Professor Of Psychology Name Role Phone BRUCE FORREST Primary Care Provider [phone] FLORA KEMP Referring Provider NIKO CRISOSTOMO Primary Care Provider Assessment No assessment recorded. Plan of Treatment Reminders Order Date Submit Date Provider Last Modified By Organization Details Last Modified Time Details Appointments None recorded. Lab None recorded. Referral None recorded. Procedures None recorded. Surgeries None recorded. Imaging None recorded. Medication Orders triamcinolo ne acetonide 0.1 % dental paste 2022 023 [facility] [id number] [facility] [employer], [facility], [address], 15:33:29 dexamethaso ne 0.5 mg/5 mL oral elixir 2022 023 [facility] [id number] [facility] [employer], [address] [facility] [place], [address], 15:33:28 Patient TargetsNo targets recorded. Patient Instructions Encounter Date Encounter Id Patient Instructions Last Modified By Organization Details Last Modified Time 01/16/2023 [id number] canker sore: car e instructions jbarss Not [...] subsides. I also recommended she see a Access Developer for an evaluation. She knows to reach [...] Time procedure on lung completed [facility] 01/16/2023 14:30:06 Imaging Results None recorded. Procedure Notes None recorded. Medical Equipment None Reported. Allergies Allergen ID Allergen Name Allergen Category Reaction Reaction Severity Criticality Documentation Date Start Date Code Code System Note Provider Name and Address Organization Details Recorded Time 71280 Medicinal product containin g penicilli n and acting as antibacte rial agent (product) medicatio n Not available Not available Not available 01/16/2023 80520 05 SNOMED [facility] 14:38:42 14276 Substance with sulfonami de structure and antibacte rial mechanism of action (substanc e) medicatio n Not available Not available Not available 01/16/2023 53887 8003 SNOMED Rea Pace audrey [facility] [...] 118 mm[Hg] 63 mm[Hg] Rea venturaNEDA - [facility] 01/16/2023 14:37:47 Social History Question Answer Notes LastModified by Organizat ion Details LastModified Time Tobacco Smoking Status Never Smoker Rea ventura [facility] 01/16/2023 14:41:43 [...] Meningitis N Pancreatic disease N Heart Attack (OK) N Stomach Ulcers N Back pain Y [...] Encounter Start Date Encounter Closed Date Diagnosis/Indication [id number] Helena Villalta DDS [address] [place] [address] 01/16/2023 14:17:38 01/16/2023 15:33:21 Aphthous ulcer of [...] AFTER 19 (MEDICARE REPLACEMENT/ ADVANTAGE - HMO) [id number] Alexia Phillips [id number] Alexia Phillips Notes Date Note Type Note [...] last jul 2023. Helena Villalta DDS [address] [facility] [address], [place], [address], [facility] 01/16/2023 22:21:14 OBGyn Episode No OBEpisode recorded.
--- OUTSIDE RECORDS SUMMARY | 2023-09-23 10:10 | XMS_ITS | Clinical Summary ---
Author Name Unknown Organization [employer] [facility] Address [place], [place] [address] Care Team Providers Care Machine Assembler Name Role Phone Chitra Bruno MD Primary Care Provider Allergies Active Allergy Reactions Criticality Noted Date Comments Penicillins 09/05/2010 Sulfa (Sulfonamide Antibiotics) 08/26 Medications Medication Sig Dispensed Refills Start Date End Date Status estrogens conj synthetic (CENESTIN) 0.9 mg tablet Take 1 tablet by mouth once daily. 0 09/05/2010 4 Discontinued(O ther - add note to specify (E-cancel not sent)) FLUoxetine (PROZAC) 10 mg capsule Take 1 capsule by mouth every morning. 0 09/05/2010 4 Discontinued(O ther - add note to specify (E-cancel not sent)) alendronate (FOSAMAX) 70 mg tabletIndication s:Osteoporosis Take 1 tablet by mouth once a week in the morning. Take on empty stomach with full glass of water. Do not lie down for 1 hr. 12 tablet 3 09/28/2010 4 Discontinued(O ther - add note to specify (E-cancel not sent)) albuterol HFA (PRO-AIR; VENTOLIN; PROVENTIL) 90 mcg/actuation inhaler Inhale 2 Puffs by mouth 4 times daily if needed for Shortness Of Breath or Wheezing. 0 Suspended estradioL (ESTRACE) 0.5 mg tablet Take 0.5 mg by mouth once daily. 0 Suspended omeprazole (PRILOSEC) 20 mg Delayed-Release capsule Take 20 mg by mouth once daily before a meal. 0 Suspended multivitamin (MVI) tablet Take 1 Tablet by mouth once daily. 0 Suspended ascorbic acid, vitamin C, (Vitamin C) 1,000 mg tablet Take 1,000 mg by mouth once daily. 0 Suspended cholecalciferol, Vitamin D3, (Vitamin D-3) 2,000 unit tablet Take 2,000 units by mouth once daily. 0 Suspended glucosamine-gabi droitin, 500-400mg, (COSAMIN DS) 500-400 mg tablet Take 1 Tablet by mouth three times daily. 0 Suspended zinc sulfate 50 mg zinc (220 mg) capsule Take 220 mg by mouth. every 3 days 0 Suspended Active Problems Problem Noted Date Diagnosed Date Pneumonia due to COVID-19 virus 09/21/2023 Osteopenia 09/05/2010 Encounters Date Type Department Care Team Description 09/21/2023 5:27 PM RAW STOCK MACHINE LOADER - Present Hospital Encounter [facility] [address] [place] [address] Doctors([facility]), [facility] Tre Leggett MD [place], Vidu Bala, MBBS 09/21/2023 Travel 07/31/2023 Lab Requisition [facility] [phone] Aury Estevez MD from Last 3 Months [...] of Communication with Friends and Fami ly 0 09/21/2023 Financial Resource Strain Answer Date R ecorded Difficulty of Paying Living Expenses 3 09/21/2023 Difficulty of Paying Living Expenses Not on file 09/21/2023 Food Insecurity Answer Date Recorded Worried About Running Out of Food in the Last Ye ar 1 09/21/2023 Transportation Needs Answer Date Record ed Lack of Transportation (Medical) 1 09/21/2023 Housing Stability Answer Date Recorded Unable to Pay for Housing in the Last Year 1 09/21/2023 Sex and Gender Information Value Date Recorded Sex Assigned at Not on file Gender Identity Not on file Sexual Orientation Not on file Obstetrics History Last Filed Vital Signs Vital Sign Reading Time Taken Comments Blood Pressure 140/61 09/22/2023 8:19 PM RAW STOCK MACHINE LOADER Pulse 81 09/23/2023 9:02 AM RAW STOCK MACHINE LOADER Temperature 36.8 ??C (98.3 ??F) 09/22/2023 8:19 PM CS T Respiratory Rate 20 09/22/2023 8:19 PM RAW STOCK MACHINE LOADER Oxygen Saturation 98% 09/23/2023 9:02 AM RAW STOCK MACHINE LOADER Inhaled Oxygen Concentration - - Weight 63 kg (139 lb) 09/21/2023 5:30 PM RAW STOCK MACHINE LOADER Height 172.7 cm (5' 8) 09/21/2023 6:36 PM RAW STOCK MACHINE LOADER Body Mass Index 21.13 09/21/2023 5:30 PM RAW STOCK MACHINE LOADER Plan of Treatment Health Maintenance Due Date Last Done Comments Depression screening for age 12+ 1964 BMI (ht and wt on same day) for age 18+ 1970 Hepatitis C screening for ag e 18-79 1970 Colonoscopy through age 75 1997 Lipids for age 45-75 1997 Zoster (shingles) series for age 50+ (1 of 2) 2002 Mammogram for age 45-75 09/21/2011 09/21/2010, 09/05 DEXA/DXA scan for age 65+ 2017 09/12/2010 Pneumococcal series for age 65+ (1 of 1 - PCV) 2017 Tetanus booster 09/05/2020 09/05/2010 Influenza for age 65+ 04/26/2023 09/05/2010 Tdap Completed 09/05/2010 COVID-19 vaccine series Completed 07/23/20, 03/05/2023, 08/07/2022, Additional history exists Procedures The patient is currently admitted. The information in this section might not be complete until the patient is discharged. Procedure Name Priority Date/Time Associated Diagnosis Comments SCAN-CARDIAC STRIP 09/23/2023 7: 45 AM RAW STOCK MACHINE LOADER POTASSIUM Early AM 09/23/2023 6:37 AM RAW STOCK MACHINE LOADER MAGNESIUM Early AM 09/23/2023 6:37 AM RAW STOCK MACHINE LOADER SCAN-CARDIAC STRIP 09/22/2023 8: 26 PM RAW STOCK MACHINE LOADER SCAN-CARDIAC STRIP 09/22/2023 6: 36 PM RAW STOCK MACHINE LOADER LD,TOTAL Today 09/22/2023 6:15 PM RAW STOCK MACHINE LOADER CT CHEST WO Routine 09/22/2023 2:07 PM RAW STOCK MACHINE LOADER SCAN-CARDIAC STRIP 09/22/2023 10 :50 AM RAW STOCK MACHINE LOADER BASIC METABOLIC PANEL EDER 09/22/2023 9:58 AM RAW STOCK MACHINE LOADER CBC WITH AUTO DIFFERENTIAL Timed 09/22/2023 9:57 AM RAW STOCK MACHINE LOADER CBC WITH AUTO DIFFERENTIAL Timed 09/22/2023 9:57 AM RAW STOCK MACHINE LOADER PROCALCITONIN Timed 09/22/2023 9:57 AM RAW STOCK MACHINE LOADER POTASSIUM Timed 09/22/2023 8:04 AM RAW STOCK MACHINE LOADER MAGNESIUM Timed 09/22/2023 8:04 AM RAW STOCK MACHINE LOADER SCAN-CARDIAC STRIP 09/22/2023 1: 10 AM RAW STOCK MACHINE LOADER SCAN-CARDIAC STRIP 09/21/2023 7: 04 PM RAW STOCK MACHINE LOADER LAB TRACKING EVENT Routine 07/31/2023 11 :30 AM RAW STOCK MACHINE LOADER PATH BREAST CORE BIOPSY Routine 07/31/2023 11:30 AM RAW STOCK MACHINE LOADER from Last 3 Months Results * SCAN-CARDIAC STRIP (09/23/2023 7:45 AM RAW STOCK MACHINE LOADER) Scanner OTHER * (ABNORMAL) POTASSIUM (09/23/2023 6:37 AM RAW STOCK MACHINE LOADER) Only the most recent of2 resultswithin the time period is included. POTASSIUM 3.3(L) 3.5 - 5.1 mmol/L 09/23/2023 7:21 AM RAW STOCK MACHINE LOADER [facility] Blood BLOOD SPECIMEN / Unknown Butterfly / Unknown 09/23/2023 6:37 AM RAW STOCK MACHINE LOADER 09/23/2023 6:57 AM RAW STOCK MACHINE LOADER Elida Sol [facility] CHEMISTRY [facility] INTERNAL ZIP [phone] [place] [address] * MAGNESIUM (09/23/2023 6:37 AM RAW STOCK MACHINE LOADER) Only the most recent of2 resultswithin the time period is included. Pathologist [facility] MAGNESIUM 2.2 1.6 - 2.4 mg/dL 09/23/2023 7:21 AM RAW STOCK MACHINE LOADER [facility] Blood BLOOD SPECIMEN / Unknown Butterfly / Unknown 09/23/2023 6:37 AM RAW STOCK MACHINE LOADER 09/23/2023 6:57 AM RAW STOCK MACHINE LOADER Elida FRYE CHEMISTRY [facility] INTERNAL ZIP [phone] [place] [id number] * SCAN-CARDIAC STRIP (09/22/2023 8:26 PM RAW STOCK MACHINE LOADER) Scanner OTHER * SCAN-CARDIAC STRIP (09/22/2023 6:36 PM RAW STOCK MACHINE LOADER) Scanner OTHER * (ABNORMAL) LD,TOTAL (09/22/2023 6:15 PM RAW STOCK MACHINE LOADER) Pathologist [facility] LD,TOTAL 253(H) 135 - 214 IU/L 09/22/2023 6:54 PM RAW STOCK MACHINE LOADER [facility] Blood BLOOD SPECIMEN / Unknown Butterfly / Unknown 09/22/2023 6:15 PM RAW STOCK MACHINE LOADER 09/22/2023 6:19 PM RAW STOCK MACHINE LOADER Theresa Moreno MD CHEMISTRY [facility] INTERNAL ZIP [phone] [place] [address] * CT CHEST WO (09/22/2023 2:07 PM RAW STOCK MACHINE LOADER) Anatomical Region Laterality Modality CHEST, THORAX, HEART Computed To mography 09/22/2023 2:07 PM RAW STOCK MACHINE LOADER Impressions 09/22/2023 5:07 PM RAW STOCK MACHINE LOADER 1. ??Bilateral groundglass opacities with some areas of superimposed consolidation. Appearance is consistent with COVID 19 pneumonia. Narrative 09/22/2023 5:07 PM RAW STOCK MACHINE LOADER For Patients: As a result of the Cures Act, medical imaging exams and procedure reports are released immediately into your electronic medical record. You may view this report before your referring provider. If you have questions, please contact your health care provider. EXAM: CT CHEST WO LOCATION: [facility] DATE: 09/22/2023 INDICATION: Pneumonia, complication suspected, xray done COMPARISON: None. TECHNIQUE: CT chest without IV contrast. Multiplanar reformats were obtained. Dose reduction techniques were used. CONTRAST: None. FINDINGS: LUNGS AND PLEURA: Multifocal bilateral peripheral predominant groundglass opacities with concurrent septal thickening. Additional superimposed consolidative opacities in the lower lungs. Bilateral bronchiectasis. No pleural effusion or pneumothorax. MEDIASTINUM/AXILLAE: Sternotomy. Normal heart size. No pericardial effusion. Normal caliber thoracic aorta. No pathologically enlarged thoracic lymph nodes. Mediastinal clips compatible with thymoma resection. CORONARY ARTERY CALCIFICATION: None. UPPER ABDOMEN: Left renal cysts do not require dedicated follow-up. MUSCULOSKELETAL: Subacute fractures of multiple right-sided ribs. Old left rib fractures. Procedure Note Ko Kelly MD - 09/22/2023 For Patients: As a result of the Cures Act, medical imagingexams and procedure reports are released immediately into your electronicmedical record. You may view this report before your referring provider.If you have questions, please contact your health care provider. EXAM: CT CHEST WO LOCATION: [facility] DATE: 09/22/2023 INDICATION: Pneumonia, complication suspected, xray done COMPARISON: None. TECHNIQUE: CT chest without IV contrast. Multiplanar reformats wereobtained. Dose reduction techniques were used. CONTRAST: None. FINDINGS: LUNGS AND PLEURA: Multifocal bilateral peripheral predominant groundglassopacities with concurrent septal thickening. Additional superimposedconsolidative opacities in the lower lungs. Bilateral bronchiectasis. Nopleural effusion or pneumothorax. MEDIASTINUM/AXILLAE: Sternotomy. Normal heart size. No pericardialeffusion. Normal caliber thoracic aorta. No pathologically enlargedthoracic lymph nodes. Mediastinal clips compatible with thymomaresection. CORONARY ARTERY CALCIFICATION: None. UPPER ABDOMEN: Left renal cysts do not require dedicated follow-up. MUSCULOSKELETAL: Subacute fractures of multiple right-sided ribs. Old leftrib fractures. IMPRESSION: 1. Bilateral groundglass opacities with some areas of superimposedconsolidation. Appearance is consistent with COVID [address] * SCAN-CARDIAC STRIP (09/22/2023 10:50 AM RAW STOCK MACHINE LOADER) Scanner OTHER * (ABNORMAL) BASIC METABOLIC PANEL (09/22/2023 9:58 AM RAW STOCK MACHINE LOADER) SODIUM 136 136 - 145 mmol/L 09/22/2023 10:45 AM [facility] POTASSIUM 3.9 3.5 - 5.1 mmol/L 09/22/2023 10:45 AM [facility] CHLORIDE 100 98 - 107 mmol/L 09/22/2023 10:45 AM [facility] CO2,TOTAL 23 22 - 29 mmol/L 09/22/2023 10:45 AM [facility] ANION GAP 13 5 - 18 09/22/2023 10:45 AM [facility] GLUCOSE 148(H) 70 - 99 mg/dL 09/22/2023 10:45 AM [facility] CALCIUM 8.9 8.8 - 10.2 mg/dL 09/22/2023 10:45 AM [facility] BUN 10 8 - 23 mg/dL 09/22/2023 10:45 AM [facility] CREATININE 0.48(L) 0.50 - 0.90 mg/dL 09/22/2023 10:45 AM [facility] BUN/CREAT RATIO 21(H) 10 - 20 10:45 AM [facility] eGFR >90 >90 mL/min/1.7 3m2 09/22/2023 10:45 AM [facility] Comment:As of 2021, eG FR is calculated by the CKD-EPI creatinine equation without race adjustment. ??eGFR can be influenced by muscle mass, exercise, and diet. ??The reported eGFR is an estimation only and is only applicable if the renal function is stable. Blood BLOOD SPECIMEN / Unknown Butterfly / Unknown 09/22/2023 9:58 AM RAW STOCK MACHINE LOADER 09/22/2023 10:23 AM RAW STOCK MACHINE LOADER Elida Sol [facility] CHEMISTRY [facility] INTERNAL ZIP [phone] [place] [address] * (ABNORMAL) CBC WITH AUTO DIFFERENTIAL (09/22/2023 9:57 AM RAW STOCK MACHINE LOADER) WHITE BLOOD COUNT 6.2 4.5 - 11.0 thou/cu mm 09/22/2023 10:32 AM [facility] RED BLOOD COUNT 3.57(L) 4.00 - 5.20 mil/cu mm 09/22/2023 10:32 AM [facility] HEMOGLOBIN 10.4(L) 12.0 - 16.0 g/dL 09/22/2023 10:32 AM [facility] HEMATOCRIT 31.0(L) 33.0 - 51.0 % 09/22/2023 10:32 AM [facility] MCV 87 80 - 100 fL 09/22/2023 10:32 AM [facility] MCH 29.1 26.0 - 34.0 pg 09/22/2023 10:32 AM [facility] MCHC 33.5 32.0 - 36.0 g/dL 09/22/2023 10:32 AM [facility] RDW 14.1 11.5 - 15.5 % 09/22/2023 10:32 AM [facility] PLATELET COUNT 295 140 - 440 thou/cu mm 09/22/2023 10:32 AM [facility] MPV 9.6 6.5 - 11.0 fL 09/22/2023 10:32 AM [facility] NRBC 0.0 % 09/22/2023 10:32 AM [facility] ABS NRBC 0.0 thou /cu mm 09/22/2023 10:32 AM [facility] % NEUT 80.9 % 09/22/2023 10:32 AM [facility] % LYMPH 10.6 % 09/22/2023 10:32 AM [facility] % MONO 8.0 % 09/22/2023 10:32 AM [facility] % EOS 0.0 % 09/22/2023 10:32 AM [facility] % BASO 0.0 % 09/22/2023 10:32 AM [facility] % IMMATURE GRAN (METAS,MYELOS,SD OS) 0.5 % 09/22/2023 10:32 AM [facility] ABSOLUTE NEUTROPHILS 5.0 1.7 - 7.0 thou/cu mm 09/22/2023 10:32 AM [facility] ABSOLUTE LYMPHOCYTES 0.7(L) 0.9 - 2.9 thou/cu mm 09/22/2023 10:32 AM [facility] ABSOLUTE MONOCYTES 0.5 <0.9 thou/cu mm 09/22/2023 10:32 AM [facility] ABSOLUTE EOSINOPHILS 0.0 <0.5 thou/cu mm 09/22/2023 10:32 AM [facility] ABSOLUTE BASOPHILS 0.0 <0.3 thou/cu mm 09/22/2023 10:32 AM [facility] ABSOLUTE IMMATURE GRANULOCYTES(MET ,MYELOS,PROS) 0.0 <0.3 thou/cu mm 09/22/2023 10:32 AM [facility] Blood BLOOD SPECIMEN / Unknown Butterfly / Unknown 09/22/2023 9:57 AM RAW STOCK MACHINE LOADER 09/22/2023 10:23 AM RAW STOCK MACHINE LOADER Elida FRYE HEMATOLOGY [facility] [place] ZIP [phone] [place] [address] * PROCALCITONIN (09/22/2023 9:57 AM RAW STOCK MACHINE LOADER) PROCALCITONIN 0.14 ng/ml 09/22/2023 11:01 AM RAW STOCK MACHINE LOADER [facility] Blood BLOOD SPECIMEN / Unknown Butterfly / Unknown 09/22/2023 9:57 AM RAW STOCK MACHINE LOADER 09/22/2023 10:23 AM RAW STOCK MACHINE LOADER Narrative [facility] - 09/22/2023 11:01 AM RAW STOCK MACHINE LOADER Procalcitonin for initial assessment of Lower Respiratory Tract Infection: Results Interpretation <0.10 ng/mL Antibiotic therapy strongly discoraged. ??Indicates absent of bacterial infection. * 0.10 - 0.25 ng/mL Antibiotic therapy discouraged. ??Bacterial infection unlikely. * 0.26 - 0.50 ng/mL Antibiotic therapy encouraged. ??Bacterial infection possible. >0.50 ng/mL Antibiotic therapy strongly encouraged. ??Suggestive of presence of bacterial infection. *Antibiotic therapy should be considered regardless of PCT result if the patient is clinically unstable, is at high risk for adverse outcome, has strong evidence of bacterial pathogen, or the clinical context indicates antibiotic therapy is warranted. ??If antibiotics are withheld, reassess if symptoms persist/worsen and/or repeat PCT measurement within 6-24 hours. ? In order to assess treatment success and to support a decision to discontinue antibiotic therapy, follow up samples should be tested once every 1-2 days, based upon physician discretion taking into account patient's evolution and progress. Procalcitonin for initial assessment of severe sepsis risk: Results Interpretation <0.5 ng/ml A PCT level below 0.5 ng/ml on the first day of ICU admission is associated with a low risk for progression to severe sepsis and/or septic shock. > 2.0 ng/mL A PCT level above 2.0 ng/mL on the first day of ICU admission is associated with a high risk for progression to severe sepsis and/or septic shock. Note: Concentrations < 0.5 ng/mL do not exclude an infection, on account of localized infections (without systemic signs) which can be associated with such low concentrations, or a systemic infection in its initial stages(< 6 hours). Furthermore, increased procalcitonin can occur without infection. PCT concentrations between 0.5 and 2.0 ng/mL should be interpreted taking into account the patient's history. It is recommended to retest PCT within 6-24 hours if any concentrations < 2 ng/mL are obtained. Elida Sol [facility] SEND OUTS Performing Organization Address City/[facility] Co de Phone Number [facility] INTERNAL ZIP [phone] [place] [address] * SCAN-CARDIAC STRIP (09/22/2023 1:10 AM RAW STOCK MACHINE LOADER) Scanner OTHER * SCAN-CARDIAC STRIP (09/21/2023 7:04 PM RAW STOCK MACHINE LOADER) Scanner OTHER * LAB TRACKING EVENT (07/31/2023 11:30 AM RAW STOCK MACHINE LOADER) Other (Other) Client Collect / Unknown 07/31/2023 11:30 AM RAW STOCK MACHINE LOADER 07/31/2023 8:50 PM RAW STOCK MACHINE LOADER Aury Estevez MD LAB BILL ONLY Performing Organization Address City/[facility] Co de Phone Number [facility] [address] * PATH BREAST CORE BIOPSY (07/31/2023 11:30 AM RAW STOCK MACHINE LOADER) Case Report Pathology Report ?Case: [id number] ? Authorizing Provider: ??Aury Estevez MD ??Collected: ? 07/31/2023 1130 ? Ordering Location: ? [facility] ?Received: ?07/31/2023 2056 ? Pathologist: ? Dale Helton MD ? Specimen: ?Right Breast Core Ultrasound Biopsy ? 08/01/2023 10:26 AM [facility] LAB[facility]AT[facility] ENTRAL LABORATORY Final Diagnosis A) RIGHT BREAST, 9:00, 1 CM FROM NIPPLE, ULTRASOUND-GUID ED CORE BIOPSY: 1. Nodular densely fibrous breast stroma and dilated ducts 2. Negative for atypia and malignancy 08/01/2023 10:26 AM [facility] LAB[facility]ATORY Comment A) This is an image-guided breast biopsy. The pathologic findings should be correlated with radiologic and clinical findings prior to treatment decisions. Case seen in consultation with Dr. Andres. 08/01/2023 10:26 AM [facility] LAB[facility] Clinical Information RIGHT breast lobulated, indistinct, hypoechoic, solid mass at 9:00, 1 cm from the nipple measuring 2.4 cm 08/01/2023 10:26 AM [facility]-C ENTRAL LABORATORY Gross Description A) Label: Patient's name [...] 72 hours. TLF 07/31/2023 08/01/2023 10:26 AM [facility]AL LABORATORY Microscopic Description The final diagnosis is based on microscopic examination of appropriate sections of all specimens. A) The presence of blue ink is confirmed on tissue sections. 08/01/2023 10:26 AM RAW STOCK MACHINE LOADER [facility] Additional Information Interpreted at [facility] - [address] [facility] [address], [place] [address] 08/01/2023 10:26 AM RAW STOCK MACHINE LOADER [facility] Other (Right Breast Core Ultrasound Biopsy) 07/31/2023 11:30 AM RAW STOCK MACHINE LOADER 07/31/2023 8:56 PM RAW STOCK MACHINE LOADER Aury Estevez MD PATHOLOGY/[facility] [address] [place] [address], [place] from Last 3 Months Advance Directives Latest Code Status on File Code Status Date Activated Date Inactivated Comments Full Code 09/21/2023 5:55 PM Question Answer Comments Code Status Discussion: Reviewed Preferences Care Teams Machine Assembler Relationship Specialty Start Date End Date [place] [address] PCP - General Family Practice 08/29/10
== END 2023-09-21 16:01 | disposition home or self-care (01) ==
LOC: AMB 09-23 10:00
PROVIDERS: PCP Family Medicine; Visit Provider Emergency Medicine
DX: R06.09 Other forms of dyspnea (principal)
CPT/HCPCS: A0425; A0428

== ENCOUNTER 2023-10-02 21:04 | Emergency (ER) | payer MEDICARE, SELFPAY ==
[2023-10-02 21:26] VITALS: BP 144/81; PULSE 84; RESP 12; TEMP 36.3; O2SAT 95; BMI 22.0
--- OUTSIDE RECORDS SUMMARY | 2023-10-02 22:26 | XMS_ITS | Encounter Summary ---
Author Name Unknown Organization [facility] Address [address] [place] [address] Care Team Providers Care Chainstitch Pants Outseamer Name Role Phone Elsewhere, Pcp Primary Care Provider Unavailabl e Reason for Referral * MRI/CAT/PET Scan (Routine) - Closed Specialty Diagnoses / Procedures Referred By Joe allison Referred To Contact Radiology Diagnoses Mass Mediastinal Procedures CT Chest with IV Contrast Abril Nash P.A.-C. [address] [place] [address] [facility] Referral ID Status Reason Start Date Expiration Date Visits Re quested Visits Authorized [id number] Closed 10/30/2022 10/30/2023 1 1 Reason for Visit * MRI/CAT/PET Scan (Routine) - Closed Specialty Diagnoses / Procedures Referred By Joe allison Referred To Contact Radiology Diagnoses Mass Mediastinal Procedures CT Chest with IV Contrast Abril Nash P.A.-C. [address] [place] [address] [facility] Referral ID Status Reason Start Date Expiration Date Visits Re quested Visits Authorized [id number] Closed 10/30/2022 10/30/2023 1 1 Encounter Details Date Type Department Care Team (Latest Contact Info) Description 05/02/2023 10:21 AM CDT - 05/02/2023 11:59 PM CDT Hospital Encounter Department of Radiology, [facility], in [place], [place] [address] [place] [address] Abril Nash P.A.-C. [address] [place] [address] Mass Mediastinal Discharge Disposition: Home or Self [...] any clubs o r organizations such as religious groups, unions, fraternal or athletic groups, or [...] care, and heating? Not very hard 06/04/2022 [facility] [place] [facility] - Occupational Stress [...] Master's degree (e.g., MA, MS, Milly, MEd, DSP ENGINEER, MADELYN) 06/04/2022 Sex and Gender Information [...] by mouth 3 (three) times a week. [id number] 03/14/2022 documented as of this encounter Plan of Treatment Upcoming Encounters Date Type Department Care Team (Late st Contact Info) Description 11/11/2023 10:40 AM CDT Appointment Department of Laboratory Medicine and Pathology, [facility] in [place], [place] [address] [place] [address] Radha Keen APRN, C.N.P., M.S.N. [address] [place] [phone] 11/11/2023 11:15 AM CDT Appointment Department of Radiology, [facility], in [place], [place] [address] [place] [address] Radha Keen APRN, C.N.P., M.S.N. [address] [place] [phone] 11/11/2023 1:00 PM CDT Office Visit Division of Thoracic Surgery in [place], [place] [address] [place] [address] Radha Keen APRN, C.NCasandra., M.S.N. [address] [place] [phone] documented as of this encounter Procedures Procedure [...] mL documented in this encounter Care Teams Chainstitch Pants Outseamer Relationship Specialty Start Date End Date Elsewhere, Pcp PCP - General Family Medicine 01/03/18 documented as of this encounter
--- OUTSIDE RECORDS SUMMARY | 2023-10-02 22:26 | XMS_ITS | Encounter Summary ---
Author Name Unknown Organization [facility] Address [address] [place] [address] Care Team Providers Care Passport Support Manager Name Role Phone Elsewhere, Pcp Primary Care Provider Unavailabl e Encounter Details Date Type Department Care Team (Latest Contact Info) Description 05/02/2023 8:50 AM CDT - 05/02/2023 10:20 AM CDT Hospital Encounter Department of Laboratory Medicine and Pathology, [facility], in [place], [place] [address] [place] [address] Abril Nash P.A.-C. [address] [place] [address] Mass Mediastinal Discharge Disposition: Home or Self [...] How often do you attend chur or tenriism services? Never 06/04/2022 Do you belong to [...] and heating? Not very hard 06/04/2022 [facility] [place] of Occupat ional Health - Occupational Stress [...] Master's degree (e.g., MA, MS, Milly, MEd, ARTIFICIAL STONE SETTER, AMDELYN) 06/04/2022 Sex and Gender Information Value Date [...] by mouth 3 (three) times a week. Atydop-Hhprhfljg-Ezpbqf 0 03/14/2022 documented as of this encounter Plan of Treatment Upcoming Encounters Date Type Department Care Team (Late st Contact Info) Description 11/11/2023 10:40 AM CDT Appointment Department of Laboratory Medicine and Pathology, [place], [place] [address] [place] [phone] Radha Keen APRN, C.N.P., M.S.N. [address] [place] [phone] 11/11/2023 11:15 AM CDT Appointment Department of Radiology, [facility] in [place], [place] [address] [place] [phone] Radha Keen APRN, Sandip.N.P., M.S.N. [address] [place] [phone] 11/11/2023 1:00 PM CDT Office Visit Division of Thoracic Surgery in [place], [place] [address] [place] [phone] Radha Keen APRN, C.N.P., M.S.N. [address] [place] [phone] documented as of this encounter Procedures Procedure [...] Abril Nash P.A.-C. LAB BLOOD ADD- ON [facility] [address] [place] [address], [facility] [address] [place] [address] documented in this encounter Visit Diagnoses Diagnosis Mass Mediastinal documented in this encounter Care Teams Passport Support Manager Relationship Specialty Start Date End Date Elsewhere, Pcp PCP - General Family Medicine 01/03/18 documented as of this encounter
--- OUTSIDE RECORDS SUMMARY | 2023-10-02 22:26 | XMS_ITS | Encounter Summary ---
Author Name Unknown Organization [facility] Address [address] [place] [address] Care Team Providers Care Police Academy Program Coordinator Name Role Phone Elsewhere, Pcp Primary Care Provider Unavailabl e Reason for Visit * Reason Onset Date Comments Pre-visit Intake 05/01/2023 Encounter Details Date Type Department Care Team (Latest Contact Info) Description 05/01/2023 12:00 PM CDT Clinical Communication Virtual Review in [place], [place] 200 [place] [address] Pre-visit Intake Social History Tobacco Use Types [...] How often do you attend chur or gnosticism services? Never 06/04/2022 Do you belong to [...] care, and heating? Not very hard 06/04/2022 [facility] of Occupat ional Health - [...] Master's degree (e.g., MA, MS, Milly, MEd, MANAGER LVN, MADELYN) 06/04/2022 Sex and Gender Information Value [...] Department of Laboratory Medicine and Pathology, [facility], in [place], [place] [address] [place] [address] Radha Keen APRN, C.N.P., M.S.N. [address] [place] [phone] 11/11/2023 11:15 AM CDT Appointment Department of Radiology, [facility], in [place], [place] [address] [place] [phone] Radha Keen APRN, C.N.P., M.S.N. [address] [place] [phone] 11/11/2023 1:00 PM CDT Office Visit Division of Thoracic Surgery in [place], [place] [address] [place] [phone] Radha Keen APRN, C.NLuz Maria, M.S.N. [address] [place] [phone] documented as of this encounter Visit Diagnoses Not on filedocumented in this encounter Care Teams Police [employer] Program Coordinator Relationship Specialty Start Date End Date Elsewhere, Pcp PCP - General Family Medicine 01/03/18 documented as of this encounter
--- OUTSIDE RECORDS SUMMARY | 2023-10-02 22:26 | XMS_ITS | Referral Summary ---
Author Name Unknown Organization [facility] Address [address] [place] [address] Care Team Providers Care Mental Health Program Specialist Name Role Phone Elsewhere, Pcp Primary Care Provider Unavailabl e Source Comments Patient records contain information from all sites at [facility]. For routine questions regarding patient records, call [phone] during business hours, M-F 8:00 AM - 5:00 PM Central Time. Record requests for emergency care only can be directed to [phone] at any time.[facility] Encounters Date Type Department Care Team Description 09/18/2023 Clinical Communication Division of Thoracic Surgery in [place], [place] [address] [place] [phone] Rosaura Claudio M.D., Ph.D. 07/08/2023 Orders Only Division of Thoracic Surgery in [place], [place] [address] [place] [phone] Susan Jarrett RDontrell. Thymoma (Primary Dx) from [...] by mouth 3 (three) times a week. Mtjdok-Ojmjshycd-Ge iday 0 03/14/2022 Active B complex-vitamins (BALANCE [...] Overview: Added automatically from request for surgery [id number] Immunizations Name Administration Dates Next Due PCV13 [...] declined 06/04/2022 How often do you attend [facility] or latter day services? Never 06/04/2022 Do you belong to any clubs o r organizations such as caodaism groups, unions, fraternal or athletic groups, or [...] and heating? Not very hard 06/04/2022 [facility] of Occupat ional Health - Occupational [...] Master's degree (e.g., MA, MS, Milly, MEd, DIE DRAWING CHECKER, MADELYN) 06/04/2022 Sex and Gender Information Value Date Recorded Sex Assigned at Female 06/04/2022 4:58 PM CDT Gender Identity Female 06/04/2022 4:58 PM CDT Sexual Orientation Straight 06/04/2022 4: 58 PM CDT Last Filed Vital Signs Vital Sign Reading Time Taken Comments Blood Pressure 125/53 08/27/2022 10:15 AM TOBACCO CONDITIONER Pulse 82 08/27/2022 10:15 AM TOBACCO CONDITIONER Temperature 36.8 ??C (98.2 ??F) 08/27/2022 10:[address] Respiratory Rate 16 08/27/2022 10:15 AM TOBACCO CONDITIONER Oxygen Saturation 98% 08/27/2022 10:15 AM TOBACCO CONDITIONER Inhaled Oxygen Concentration - - Weight 67.6 kg (149 lb 0.5 oz) 08/26/2022 9:15 A M TOBACCO CONDITIONER Height 173.9 cm (5' 8.47) 08/22/2022 7:06 AM CS T Body Mass Index 22.35 08/22/2022 7:06 AM TOBACCO CONDITIONER Plan of Treatment Upcoming Encounters Date Type Department Care Team (Late st Contact Info) Description 11/11/2023 10:40 AM CDT Appointment Department of Laboratory Medicine and Pathology, [facility] in [place], [place] [address] [place] [address] Radha Keen APRN, C.NLuz Maria, M.S.N. [address] [place] [phone] 11/11/2023 11:15 AM CDT Appointment Department of Radiology, [place], [place] [address] [place] [phone] Radha Keen APRN, C.N.P., M.S.N. [address] [place] [phone] 11/11/2023 1:00 PM CDT Office Visit Division of Thoracic Surgery in [place], [place] [address] [place] [phone] Radha Keen APRN, C.N.P., M.S.N. [address] [place] [phone] Medical Devices Implanted Type Area Senior Court Office Assistant Device Identifier Shelf Expiration Date Model / Serial / Lot Clp Hrzn Ti 6 Clp Lg Orng - [id number] Implanted:Qty: 1 on 08/22/2022 by Rosaura Claudio M.D., Ph.D. at [facility] Hardware e.g. pins/screws/r ods [employer] [id number] 04/16/2027 [id number] / / [id number] Ocular Lens Ocular Lens Eye Orthopedic Other Orthopedic Other Wrist Procedures Procedure Name Priority Date/Time Associated Diagnosis Comments OUTSIDE DX CHEST Routine 09/18/2023 3:05 AM TOBACCO CONDITIONER OUTSIDE CT BODY Routine 09/17/2023 5:30 PM TOBACCO CONDITIONER OUTSIDE DX CHEST Routine 09/14/2023 9:10 PM TOBACCO CONDITIONER OUTSIDE DX CHEST Routine 09/07/2023 12:3 5 PM TOBACCO CONDITIONER OUTSIDE CT BODY Routine 09/04/2023 11:10 PM TOBACCO CONDITIONER OUTSIDE DX CHEST Routine 09/04/2023 8:35 PM TOBACCO CONDITIONER from Last 3 Months Results * XR CHEST 1V-Outside Chest Xray (09/18/2023 3:05 AM TOBACCO CONDITIONER) Only the most recent of4 resultswithin the time period is included. Narrative IIMS - 09/19/2023 2:52 PM TOBACCO CONDITIONER This order has been created and auto-finalized to support the import of outside images. If available, original interpretation can be found on the Media Tab in Chart Review, in Document Viewer, or as an image in QREADS. If a re-interpretation or overread is required please follow defined workflow. ?? Provider Not In System IMG DIAGNOSTIC IM AGING PROCEDURES Performing Organization Address [facility] Co de Phone Number IIMS NA * CT Angio Chest PE Protocol-Outside CT Body (09/17/2023 5:30 PM TOBACCO CONDITIONER) Only the most recent of2 resultswithin the time period is included. Narrative IIMS - 09/19/2023 3:01 PM TOBACCO CONDITIONER This order has been created and auto-finalized to support the import of outside images. If available, original interpretation can be found on the Media Tab in Chart Review, in Document Viewer, or as an image in QREADS. If a re-interpretation or overread is required please follow defined workflow. ?? Provider Not In System IMG CT PROCEDURES Performing Organization Address [facility] Co de Phone Number IIMS NA from Last 3 Months Advance Directives For more information, please contact: [phone] Documents on File Type Date Recorded Patient Electronic Masking System Operator Expl anation Advance Directives 08/22/2022 9:15 [...] Communication Rea Sousa Sister Health Care Agent [email or web address] Abraham Jacqueline Brothlisa Health Care Agent [email or web address] Alex Albaro Phillips Brother First Altern ate Health Care Agent Care Teams Mental Health Program Specialist Relationship Specialty Start Date End Date Elsewhere, Pcp PCP - General Family Medicine 01/03/18
--- OUTSIDE RECORDS SUMMARY | 2023-10-02 22:26 | XMS_ITS ---
Author Name Unknown Organization [facility] Address [address] [place] [address] Care Team Providers Care Fire Hazard Inspector Name Role Phone Unavailable Unavailable Unavailable Surgery Details Not on file Complications Check Surgery Details section. Procedure Estimated Blood Loss Check Surgery Details section. Procedure Findings Check Surgery Details section. Procedure Specimens Taken Check Surgery Details section.
--- OUTSIDE RECORDS SUMMARY | 2023-10-02 22:26 | XMS_ITS | Encounter Summary ---
Author Name Unknown Organization [facility] Address [address] [place] [address] Care Team Providers Care Open Hearth Door Liner Name Role Phone Elsewhere, Pcp Primary Care Provider Unavailabl e Reason for Visit * Reason Onset Date Comments medication refill 10/22/2022 Encounter Details Date Type Department Care Team (Latest Contact Info) Description 10/22/2022 Clinical Communication Department of Cardiovascular Surgery in [place], [place] [address] [place] [phone] Rosaura Claudio M.D., Ph.D. [address] [place] [phone] medication refill Social History Tobacco Use Types [...] care, and heating? Not very hard 06/04/2022 [facility] [place] of Occupat ional Health - Occupational Stress [...] Master's degree (e.g., MA, MS, Milly, MEd, CANDY BUTCHER, MADELYN) 06/04/2022 Sex and Gender Information Value [...] will not go through. Sent portal message. EACH CONSULTANT * Telephone Encounter - Arlette Khan - 10/22/2022 3:15 PM CST Patient is requesting Lyrica refill sent to [facility] in [place]. EACH CONSULTANT documented in this encounter Plan of Treatment Upcoming Encounters Date Type Department Care Team (Late st Contact Info) Description 11/11/2023 10:40 AM CDT Appointment Department of Laboratory Medicine and Pathology, [facility] in [place], [place] [address] [place] [phone] Radha Keen APRN, C.N.P., M.S.N. [address] [place] [phone] 11/11/2023 11:15 AM CDT Appointment Department of Radiology, [facility] in [place], [place] [address] [place] [phone] Radha Keen APRN, Sandip.N.P., M.S.N. [address] [place] [phone] 11/11/2023 1:00 PM CDT Office Visit Division of Thoracic Surgery in [place], [place] [address] [place] [phone] Rdaha Keen APRN, C.N.P., M.S.N. [address] [place] [phone] documented as of this encounter Visit Diagnoses Not on filedocumented in this encounter Care Teams Open Hearth Door Liner Relationship Specialty Start Date End Date Elsewhere, Pcp PCP - General Family Medicine 01/03/18 documented as of this encounter
--- OUTSIDE RECORDS SUMMARY | 2023-10-02 22:26 | XMS_ITS | Encounter Summary ---
Author Name Unknown Organization [facility] Address [address] [place] [address] Care Team Providers Care Return Clerk Name Role Phone Elsewhere, Pcp Primary Care Provider Unavailabl e Encounter Details Date Type Department Care Team (Late st Contact Info) Description 09/18/2023 Clinical Communication Division of Thoracic Surgery in [place], [place] [address] [place] [phone] Rosaura Claudio M.D., Ph.D. [address] [place] [address] Social History Tobacco Use Types Packs/Day Years [...] How often do you attend chur or yazidi services? Never 06/04/2022 Do you belong to [...] care, and heating? Not very hard 06/04/2022 [facility] [place] of Occupat ional Health - Occupational Stress [...] Master's degree (e.g., MA, MS, Milly, MEd, SOFTWARE APPLICATIONS ARCHITECT, MADELYN) 06/04/2022 Sex and Gender Information Value Date Recorded Sex Assigned at Female 06/04/2022 4:58 PM CDT Gender Identity Female 06/04/2022 4:58 PM CDT Sexual Orientation Straight 06/04/2022 4: 58 PM CDT documented as of this encounter Plan of Treatment Upcoming Encounters Date Type Department Care Team (Late st Contact Info) Description 11/11/2023 10:40 AM CDT Appointment Department of Laboratory Medicine and Pathology, [facility] in [place], [place] [address] [place] [address] Radha Keen APRN, C.N.P., M.S.N. [address] [place] [phone] 11/11/2023 11:15 AM CDT Appointment Department of Radiology, [facility] in [place], [place] [address] [place] [phone] Radha Keen APRN, C.N.P., M.S.N. [address] [place] [phone] 11/11/2023 1:00 PM CDT Office Visit Division of Thoracic Surgery in [place], [place] [address] [place] [phone] Radha Keen APRN, C.N.P., M.S.N. [address] [place] [phone] documented as of this encounter Visit Diagnoses Not on filedocumented in this encounter Care Teams Return Clerk Relationship Specialty Start Date End Date Elsewhere, Pcp PCP - General Family Medicine 01/03/18 documented as of this encounter
--- OUTSIDE RECORDS SUMMARY | 2023-10-02 22:26 | XMS_ITS | Encounter Summary ---
Author Name Unknown Organization [facility] Address [address] [place] [address] Care Team Providers Care Silk Top Hat Body Maker Name Role Phone Elsewhere, Pcp Primary Care Provider Unavailabl e Encounter Details Date Type Department Care Team (Late st Contact Info) Description 10/26/2022 Clinical Communication Division of Thoracic Surgery in [place], [place] [address] [place] [address] Susan Jarrett, RYesikaN. Social History Tobacco Use [...] How often do you attend chur or hindu services? Never 06/04/2022 Do you [...] care, and heating? Not very hard 06/04/2022 [facility] of Occupat ional Health - Occupational [...] Master's degree (e.g., MA, MS, Milly, MEd, GRADING CLERK, MADELYN) 06/04/2022 Sex and Gender Information Value Date Recorded Sex Assigned at Female 06/04/2022 4:58 PM CDT Gender Identity Female 06/04/2022 4:58 PM CDT Sexual Orientation Straight 06/04/2022 4: 58 PM CDT documented as of this encounter Miscellaneous Notes * Addendum Note - Suly Mansfield APRN, C.N.P. - 10/26/2022 10:09 AM CHEMICAL PATHOLOGIST Addended by: SULY MANSFIELD on: 10/26/2022 10:09 AM Modules accepted: Orders ICAL PATHOLOGIST * Telephone Encounter - Susan Jarrett R.N. - 10/26/2022 9:43 AM CHEMICAL PATHOLOGIST PLAN The following information was provided: Patient [...] following references were used: nursing clinical judgement ICAL PATHOLOGIST documented in this encounter Plan of Treatment Upcoming Encounters Date Type Department Care Team (Late st Contact Info) Description 11/11/2023 10:40 AM CDT Appointment Department of Laboratory Medicine and Pathology, [facility], in [place], [place] [address] [place] [phone] Suly Mansfield APRN, Sandip.N.Avery., M.S.N. [address] [place] [phone] 11/11/2023 11:15 AM CDT Appointment Department of Radiology, [facility], in [place], [place] [address] [place] [phone] Suly Mansfield APRN, C.N.P., M.S.N. [address] [place] [phone] 11/11/2023 1:00 PM CDT Office Visit Division of Thoracic Surgery in [place], [place] [address] [place] [phone] Suly Mansfield APRN, C.N.P., M.S.N. [address] [place] [phone] documented as of this encounter Visit Diagnoses Not on filedocumented in this encounter Care Teams Silk Top Hat Body Maker Relationship Specialty Start Date End Date Elsewhere, Pcp PCP - General Family Medicine 01/03/18 documented as of this encounter
--- OUTSIDE RECORDS SUMMARY | 2023-10-02 22:26 | XMS_ITS | Encounter Summary ---
Author Name Unknown Organization [facility] Address [address] [place] [address] Care Team Providers Care Brush Maker Machine Name Role Phone Elsewhere, Pcp Primary Care Provider Unavailabl e Reason for Referral * Outpatient (Routine) - Authorized Specialty Diagnoses / Procedures Referred By Joe allison Referred To Contact Thoracic Surgery Radha Keen APRN, C.N.PYesika, M.S.N. [address] [place] [phone] [facility] Referral ID Status Reason Start Date Expiration Date V isits Requested Visits Authorized [id number] Authorized 07/08/2023 07/07/2026 1 1 Scheduling Instructions With Radha Keen NP after CT scan TRONIC DIE MAKER * MRI/CAT/PET Scan (Routine) - Authorized Specialty Diagnoses / Procedures Referred By Contac t Referred To Contact Radiology Diagnoses Thymoma Procedures CT Chest with IV Contrast Radha Keen APRN, C.N.PYesika, M.S.N. [address] [place] [phone] [facility] Referral ID Status Reason Start Date Expiration Date V isits Requested Visits Authorized [id number] Authorized 07/08/2023 07/07/2024 1 1 TRONIC DIE MAKER Encounter Details Date Type Department Care Team (Late st Contact Info) Description 07/08/2023 Orders Only Division of Thoracic Surgery in [place], [place] [address] [place] [phone] Susan Jarrett RNazia Thymoma (Primary Dx) Social [...] often do you attend chur ch or mormonism services? Never 06/04/2022 Do you belong to any clubs o r organizations such as gnosticist groups, unions, fraternal or athletic groups, or [...] care, and heating? Not very hard 06/04/2022 [facility] [place] of Occupat ional Health - Occupational Stress [...] Master's degree (e.g., DICK, MS, Milly, MEd, CLEANER AND TRIMMER, MADEYLN) 06/04/2022 Sex and Gender Information Value Date Recorded Sex Assigned at Female 06/04/2022 4:58 PM CDT Gender Identity Female 06/04/2022 4:58 PM CDT Sexual Orientation Straight 06/04/2022 4: 58 PM CDT documented as of this encounter Plan of Treatment Upcoming Encounters Date Type Department Care Team (Late st Contact Info) Description 11/11/2023 10:40 AM CDT Appointment Department of Laboratory Medicine and Pathology, [place], [place] [address] [place] [phone] Radha Keen APRN, C.N.P., M.S.N. [address] [place] [phone] 11/11/2023 11:15 AM CDT Appointment Department of Radiology, [place], [place] [address] [place] [phone] Radha Keen APRN, C.N.P., M.S.N. [address] [place] [phone] 11/11/2023 1:00 PM CDT Office Visit Division of Thoracic Surgery in [place], [place] 200 [place] [address] Radha Keen APRN, C.N.P., M.S.N. [address] [place] [phone] Scheduled Orders Name Type Priority Associated Diagnoses [...] Primary documented in this encounter Care Teams Brush Maker Machine Relationship Specialty Start Date End Date Elsewhere, Pcp PCP - General Family Medicine 01/03/18 documented as of this encounter
--- OUTSIDE RECORDS SUMMARY | 2023-10-02 22:26 | XMS_ITS | Encounter Summary ---
Author Name Unknown Organization [facility] Address [address] [place] [address] Care Team Providers Care Boring Machine Operator Double End Name Role Phone Elsewhere, Pcp Primary Care Provider Unavailabl e Reason for Visit * Reason Comments Med Refill Encounter Details Date Type Department Care Team (Late st Contact Info) Description 10/26/2022 Refill Division of Thoracic Surgery in [place], [place] [address] [place] [phone] Radha Keen APRN, C.N.P., M.S.N. [address] [place] [phone] Med Refill Social History Tobacco Use Types [...] How often do you attend chur or restorationism services? Never 06/04/2022 Do you [...] and heating? Not very hard 06/04/2022 [facility] [place] [facility] - Occupational Stress Questionnaire [...] a [place] [facility] care facility (including now)? No 06/04/2022 Nutrition Answer Date [...] Master's degree (e.g., MA, MS, Milly, MEd, LITHOPLATE MAKER, MADELYN) 06/04/2022 Sex and Gender Information Value Date Recorded Sex Assigned at Female 06/04/2022 4:58 PM CDT Gender Identity Female 06/04/2022 4:58 PM CDT Sexual Orientation Straight 06/04/2022 4: 58 PM CDT documented as of this encounter Plan of Treatment Upcoming Encounters Date Type Department Care Team (Late st Contact Info) Description 11/11/2023 10:40 AM CDT Appointment Department of Laboratory Medicine and Pathology, [facility] in [place], [place] [address] [place] [phone] Radha Keen APRN, C.NLuz Maria, M.S.N. [address] [place] [phone] 11/11/2023 11:15 AM CDT Appointment Department of Radiology, [facility] in [place], [place] [address] [place] [phone] Radha Keen APRN, C.NLuz Maria, M.S.N. [address] [place] [phone] 11/11/2023 1:00 PM CDT Office Visit Division of Thoracic Surgery in [place], [place] [address] [place] [phone] Radha Keen APRN, C.NCasandra., M.S.N. [address] [place] [phone] documented as of this encounter Visit Diagnoses Not on filedocumented in this encounter Care Teams Boring Machine Operator Double End Relationship Specialty Start Date End Date Elsewhere, Pcp PCP - General Family Medicine 01/03/18 documented as of this encounter
--- OUTSIDE RECORDS SUMMARY | 2023-10-02 22:26 | XMS_ITS | Clinical Summary ---
Author Name Unknown Organization [facility] Address [address] [place] [address] Care Team Providers Care Industrial Gas Fitter Helper Name Role Phone Elsewhere, Pcp Primary Care Provider Unavailabl e Source Comments Patient records contain information from all sites at [facility]. For routine questions regarding patient records, call [phone] during business hours, M-F 8:00 AM - 5:00 PM Central Time. Record requests for emergency care only can be directed to [phone] at any time.[facility] Allergies Active Allergy Reactions Criticality Noted [...] by mouth 3 (three) times a week. Lphsgz-Vujktqmpy-Cm iday 0 03/14/2022 Active B complex-vitamins (BALANCE [...] Overview: Added automatically from request for surgery [id number] Encounters Date Type Department Care Team Description 09/18/2023 Clinical Communication Division of Thoracic Surgery in [place], [place] [address] [place] [phone] Rosaura Claudio M.D., Ph.D. 07/08/2023 Orders Only Division of Thoracic Surgery in [place], [place] [address] [place] [phone] Susan Jarrett R.N. Thymoma (Primary Dx) from [...] often do you attend chur ch or shinto services? Never 06/04/2022 Do you [...] care, and heating? Not very hard 06/04/2022 [facility] ional [facility] - Occupational [...] Master's degree (e.g., MA, MS, Milly, MEd, DEPUTY CLERK OF SUPERIOR COURT, MADELYN) 06/04/2022 Sex and Gender Information Value Date Recorded Sex Assigned at Female 06/04/2022 4:58 PM CDT Gender Identity Female 06/04/2022 4:58 PM CDT Sexual Orientation Straight 06/04/2022 4: 58 PM CDT Last Filed Vital Signs Vital Sign Reading Time Taken Comments Blood Pressure 125/53 08/27/2022 10:15 AM SALES AND LEASING CONSULTANT Pulse 82 08/27/2022 10:15 AM SALES AND LEASING CONSULTANT Temperature 36.8 ??C (98.2 ??F) 08/27/2022 10:[address] Respiratory Rate 16 08/27/2022 10:15 AM SALES AND LEASING CONSULTANT Oxygen Saturation 98% 08/27/2022 10:15 AM SALES AND LEASING CONSULTANT Inhaled Oxygen Concentration - - Weight 67.6 kg (149 lb 0.5 oz) 08/26/2022 9:15 A M SALES AND LEASING CONSULTANT Height 173.9 cm (5' 8.47) 08/22/2022 7:06 AM CS T Body Mass Index 22.35 08/22/2022 7:06 AM SALES AND LEASING CONSULTANT Plan of Treatment Upcoming Encounters Date Type Department Care Team (Late st Contact Info) Description 11/11/2023 10:40 AM CDT Appointment Department of Laboratory Medicine and Pathology, [facility] in [place], [place] [address] [place] [phone] Radha Keen APRN, C.N.P., M.S.N. [address] [place] [phone] 11/11/2023 11:15 AM CDT Appointment Department of Radiology, [place], [place] [address] [place] [phone] Radha Keen APRN, Sandip.N.P., M.S.N. [address] [place] [phone] 11/11/2023 1:00 PM CDT Office Visit Division of Thoracic Surgery in [place], [place] [address] [place] [phone] Radha Keen APRN, C.N.P., M.S.N. [address] [place] [phone] Health Maintenance Due Date Last Done Comments [...] history exists Medical Devices Implanted Type Area Statistical Methods Professor Device Identifier Shelf Expiration Date Model / Serial / Lot Clp Hrzn Ti 6 Clp Lg Orng - [id number] Implanted:Qty: 1 on 08/22/2022 by Rosaura Claudio M.D., Ph.D. at [facility] Hardware e.g. pins/screws/r ods [employer] [id number] 04/16/2027 [id number] / / [id number] Ocular Lens Ocular Lens Eye Orthopedic Other Orthopedic Other Wrist Procedures Procedure Name Priority Date/Time Associated Diagnosis Comments OUTSIDE DX CHEST Routine 09/18/2023 3:05 AM SALES AND LEASING CONSULTANT OUTSIDE CT BODY Routine 09/17/2023 5:30 PM SALES AND LEASING CONSULTANT OUTSIDE DX CHEST Routine 09/14/2023 9:10 PM SALES AND LEASING CONSULTANT OUTSIDE DX CHEST Routine 09/07/2023 12:3 5 PM SALES AND LEASING CONSULTANT OUTSIDE CT BODY Routine 09/04/2023 11:10 PM SALES AND LEASING CONSULTANT OUTSIDE DX CHEST Routine 09/04/2023 8:35 PM SALES AND LEASING CONSULTANT from Last 3 Months Results * XR CHEST 1V-Outside Chest Xray (09/18/2023 3:05 AM SALES AND LEASING CONSULTANT) Only the most recent of4 resultswithin the time period is included. Narrative IIIL - 09/19/2023 2:52 PM SALES AND LEASING CONSULTANT This order has been created and auto-finalized to support the import of outside images. If available, original interpretation can be found on the Media Tab in Chart Review, in Document Viewer, or as an image in QREADS. If a re-interpretation or overread is required please follow defined workflow. ?? Provider Not In System IMG DIAGNOSTIC IM AGING PROCEDURES Performing Organization Address [facility] Co de Phone Number [facility] NA * CT Angio Chest PE Protocol-Outside CT Body (09/17/2023 5:30 PM SALES AND LEASING CONSULTANT) Only the most recent of2 resultswithin the time period is included. Narrative [facility] - 09/19/2023 3:01 PM SALES AND LEASING CONSULTANT This order has been created and auto-finalized to support the import of outside images. If available, original interpretation can be found on the Media Tab in Chart Review, in Document Viewer, or as an image in QREADS. If a re-interpretation or overread is required please follow defined workflow. ?? Provider Not In System IMG CT PROCEDURES Performing Organization Address [facility] de Phone Number [facility] NA from Last 3 Months Advance Directives For more information, please contact: [phone] Documents on File Type Date Recorded Patient Referral Agent Expl anation Advance Directives 08/22/2022 9:15 AM Rea Phillips HCPOA/ADVOCATE/AGENT/R EPRESENTATIVE/SURROGAT E Latest Code Status on File Code Status Date Activated Date Inactivated Comments Full Code 08/22/2022 3:36 PM 08/27/2022 2:15 PM Question Answer Comments Full Code: Not Discussed Due to: Patient not available Healthcare Agents on File Name Relationship Healthcare Agent Relationship Communication Rea Duran Health Care Agent [email or web address] Abraham Jacqueline Leavitt Health Care Agent [email or web address] Alex Irvin Jacqueline Leavitt First Altern [facility] Health Care Agent Care Teams Industrial Gas Fitter Helper Relationship Specialty Start Date End Date Elsewhere, Pcp PCP - General Family Medicine 01/03/18
--- OUTSIDE RECORDS SUMMARY | 2023-10-02 22:26 | XMS_ITS | Encounter Summary ---
Author Name Unknown Organization [facility] Address [address] [place] [address] Care Team Providers Care Ethylbenzene Converter Operator Name Role Phone Elsewhere, Pcp Primary Care Provider Unavailabl e Reason for Visit * Outpatient (Routine) - Closed Specialty Diagnoses / Procedures Referred By Joe allison Referred To Contact Thoracic Surgery Abril Nash P.A.-C. [address] [place] [phone] [facility] Referral ID Status Reason Start Date Expiration Date Visits Re quested Visits Authorized [id number] Closed 10/30/2022 10/29/2025 1 1 Encounter Details Date Type Department Care Team (Late st Contact Info) Description 05/02/2023 1:00 PM CDT Office Visit Division of Thoracic Surgery in [place], [place] [address] [place] [phone] Radha Keen APRN, C.N.P., M.S.N. [address] [place] [phone] Thymoma (Primary Dx) Social History Tobacco Use [...] care, and heating? Not very hard 06/04/2022 [facility] [place] [facility] - Occupational Stress [...] Master's degree (e.g., MA, MS, Milly, MEd, WIND PROJECT MANAGER, MADELYN) 06/04/2022 Sex and Gender Information [...] Appointment Department of Laboratory Medicine and Pathology, [facility] in [place], [place] [address] [place] [phone] Radha Keen APRN, C.N.P., M.S.N. [address] [place] [phone] 11/11/2023 11:15 AM CDT Appointment Department of Radiology, [place], [place] [address] [place] [phone] Radha Keen APRN, C.N.P., M.S.N. [address] [place] [phone] 11/11/2023 1:00 PM CDT Office Visit Division of Thoracic Surgery in [place], [place] [address] [place] [phone] Radha Keen APRN, C.N.P., M.S.N. [address] [place] [phone] documented as of this encounter Visit Diagnoses Diagnosis Thymoma- Primary documented in this encounter Care Teams Ethylbenzene Converter Operator Relationship Specialty Start Date End Date Elsewhere, Pcp PCP - General Family Medicine 01/03/18 documented as of this encounter
--- OUTSIDE RECORDS SUMMARY | 2023-10-02 22:26 | XMS_ITS | Encounter Summary ---
Author Name Unknown Organization [facility] Address [address] [place] [address] Care Team Providers Care Network Solutions Architect Name Role Phone Elsewhere, Pcp Primary Care Provider Unavailabl e Encounter Details Date Type Department Care Team (Latest Contact Info) Description 04/18/2023 Clinical Communication Department of Cardiovascular Surgery in [place], [place] [address] [place] [phone] Rosaura Claudio M.D., Ph.D. [address] [place] [phone] Social History Tobacco Use Types Packs/Day Years [...] How often do you attend chur or moravian services? Never 06/04/2022 Do you belong to any clubs o r organizations such as holiness groups, unions, fraternal or athletic groups, or [...] care, and heating? Not very hard 06/04/2022 [facility] [place] of Occupat ional Health - Occupational Stress [...] Master's degree (e.g., MA, MS, Milly, MEd, KNOT TIER, MADELYN) 06/04/2022 Sex and Gender Information Value Date Recorded Sex Assigned at Female 06/04/2022 4:58 PM CDT Gender Identity Female 06/04/2022 4:58 PM CDT Sexual Orientation Straight 06/04/2022 4: 58 PM CDT documented as of this encounter Plan of Treatment Upcoming Encounters Date Type Department Care Team (Late st Contact Info) Description 11/11/2023 10:40 AM CDT Appointment Department of Laboratory Medicine and Pathology, [facility] in [place], [place] [address] [place] [phone] Radha Keen APRN, C.N.P., M.S.N. [address] [place] [phone] 11/11/2023 11:15 AM CDT Appointment Department of Radiology, [facility] in [place], [place] [address] [place] [phone] Radha Keen APRN, C.N.P., M.S.N. [address] [place] [phone] 11/11/2023 1:00 PM CDT Office Visit Division of Thoracic Surgery in [place], [place] [address] [place] [phone] Radha Keen APRN, C.N.P., M.S.N. [address] [place] [phone] documented as of this encounter Visit Diagnoses Not on filedocumented in this encounter Care Teams Network Solutions Architect Relationship Specialty Start Date End Date Elsewhere, Pcp PCP - General Family Medicine 01/03/18 documented as of this encounter
--- NOTE | 2023-10-02 22:27 | ED.GENADULT ---
HPI - General Adult General Chief complaint: Extremity Pain/Injury, Upper Stated complaint: Picc line site is bleeding Time Seen by Provider: 10/02/23 22:27 History of Present Illness HPI narrative: This patient presented to ER triage with concerns about blood in her dressing after having had her PICC line pulled today. Nurses assessed at triage, change the dressing. She was discharged home from triage and was not seen by an MD. Related Data Home Medications Medication Instructions Recorded Confirmed acetaminophen 500 mg tablet 1,000 mg PO Q6H PRN 03/14/22 09/18/23 ascorbic acid (vitamin C) 1,000 mg 1 g PO DAILY 03/14/22 09/18/23 tablet cholecalciferol (vitamin D3) 50 2,000 unit PO DAILY 03/14/22 09/18/23 mcg (2,000 unit) capsule cyanocobalamin (vitamin B-12) 1,000 mcg PO QWEEK 03/14/22 09/18/23 1,000 mcg tablet multivitamin with minerals-ferrous 1 tab PO DAILY 03/14/22 09/18/23 sulfate 4.5 mg iron tablet (One Daily Multivitamins with Minerals) estradiol 0.5 mg tablet 0.5 mg PO DAILY 09/18/23 09/18/23 glucosamine-chondroitin 500 mg-400 2 tab PO DAILY 09/18/23 09/18/23 mg tablet (Cosamin DS) omeprazole 20 mg capsule,delayed 20 mg PO DAILY 09/18/23 09/18/23 release prednisone 5 mg tablet 5 mg PO DAILY 09/18/23 09/18/23 Previous Rx's Medication Instructions Recorded iron,carbonyl 65 mg-vitamin C 125 1 tab PO QHS #90 tabs 05/08/23 mg tablet,delayed release (Vitron-C) Lactobacillus acidophilus 0.5 mg 1,000 mmu cells PO TIDWM #90 tabs 09/08/23 (100 million cell) tablet Magic Mouthwash 10 ml PO QID PRN #120 mL 09/14/23 (Lidocaine/Benadryl/Maalox) 120 mL suspension albuterol sulfate 90 mcg/actuation 2 puff inhalation QID PRN #6.7 09/14/23 aerosol inhaler grams Allergies Allergy/AdvReac Type Severity Reaction Status Date / Time penicillin V Allergy Mild Rash Verified 10/02/23 21:26 Sulfa (Sulfonamide Allergy Mild Verified 10/02/23 21:26 Antibiotics) PFSH PFSH Medical 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) Hot flashes due to menopause ?N95.1 - Menopausal and female climacteric states (ICD-10) Osteoporosis ?M81.0 - Age-related osteoporosis without current pathological fracture (ICD-10) Osteopenia (2018) ?M85.80 - Other specified disorders of bone density and structure, unspecified site (ICD-10) Left shoulder pain ?M25.512 - Pain in left shoulder (ICD-10) History of in vitro fertilization ?Z98.890 - Other specified postprocedural states (ICD-10) History of fracture of wrist (08/2017) ?Z87.81 - Personal history of (healed) traumatic fracture (ICD-10) Surgical History 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) ?Z90.89 - Acquired absence of other organs (ICD-10) History of total abdominal hysterectomy and bilateral salpingo-oophorectomy (2002) ?Z90.710 - Acquired absence of both cervix and uterus (ICD-10) ?Z90.722 - Acquired absence of ovaries, bilateral (ICD-10) ?Z90.79 - Acquired absence of other genital organ(s) (ICD-10) History of surgery on wrist (~2017) ?Z98.890 - Other specified postprocedural states (ICD-10) History of colonoscopy (2017) ?Z98.890 - Other specified postprocedural states (ICD-10) History of bilateral cataract extraction (2017) ?Z98.41 - Cataract extraction status, right eye (ICD-10) ?Z98.42 - Cataract extraction status, left eye (ICD-10) Family History Father Bladder cancer, Onset Age: 60 High blood pressure Paternal Grandfather Coronary artery disease Mother Ovarian cancer, Onset Age: 65 Sister Thyroid disease Social History Narrative: exercises regularly- 3-4/week gym, weights, cardio non-smoker rarely consumes alcohol lives in lives with 25 yo adopted Aspergers son Her sister Rea Purcell from [place] is healthcare power of admitted attorneys. Code status is full What is your current living situation?: I presently have a place to live Problems where you live: no known problems Problems where you live details: No known problems In the past 12 months, utilities in danger of being shut off: no In past 12 months, lack of transportation kept you from medical appts, meetings, work, or getting things needed for daily living: no In the past 12 mos, have been you worried that your food would run out before you had money to buy more?: never true In the past 12 mos, the food you bought just didn't last and you didn't have money to buy more?: never true Highest level of school completed/degree received: Master's degree Smoking Status: Never smoker Do you use any of these nicotine containing products: None Second hand tobacco smoke exposure: No How often do you have a drink containing alcohol: never How often do you have six or more drinks on one occasion: Never AUDIT-C Alcohol total score: 0 Non-prescribed substance use: denies use Caffeine: Yes (Occasional coffee) How often does anyone, including family, friends and others, physically hurt you: never How often does anyone, including family, friends and others, insult or talk down to you: never How often does anyone, including family, friends and others, threaten you with harm: never How often does anyone, including family, friends and others, scream or curse at you: never Little interest or pleasure in doing things: not at all Feeling down, depressed, or hopeless: not at all service: No Exam Const: Vital Signs, click to edit/add: Vital Signs - 24 hr 10/02/23 21:26 Temperature 97.4 F L Pulse Rate [Pulse Oximeter] 84 Respiratory Rate 12 Blood Pressure [Ri ght Upper Arm] 144/81 H Pulse Oximetry 95 Oxygen Delivery Me thod Room Air Course Vital Signs Vital signs: Initial Vital Signs Temperature 97.4 F L 10/02/23 21:26 Temperature Source Temporal Artery Scan 10/02/23 21:26 Pulse Rate 84 10/02/23 21:26 Respiratory Rate 12 10/02/23 21:26 Blood Pressure 144/81 H 10/02/23 21:26 Blood Pressure Mean 102 10/02/23 21:26 Blood Pressure Position Sitting 10/02/23 21:26 Pulse Oximetry 95 10/02/23 21:26 Oxygen Delivery Method Room Air 10/02/23 21:26 Vital Signs Temperature 97.4 F L 10/02/23 21:26 Pulse Rate 84 10/02/23 21:26 Respiratory Rate 12 10/02/23 21:26 Blood Pressure 144/81 H 10/02/23 21:26 Pulse Oximetry 95 10/02/23 21:26 Oxygen Delivery Method Room Air 10/02/23 21:26 Temperature 97.4 F L 10/02/23 21:26 Pulse Rate 84 10/02/23 21:26 Respiratory Rate 12 10/02/23 21:26 Blood Pressure 144/81 H 10/02/23 21:26 Pulse Oximetry 95 10/02/23 21:26 Oxygen Delivery Method Room Air 10/02/23 21:26 Discharge Plan Discharge Prescriptions: No Action cholecalciferol (vitamin D3) 50 mcg (2,000 unit) capsule 2,000 unit PO DAILY acetaminophen 500 mg tablet 1,000 mg PO Q6H PRN Rx Instructions: NO MORE THAN 4000 MG/DAY cyanocobalamin (vitamin B-12) 1,000 mcg tablet 1,000 mcg PO QWEEK ascorbic acid (vitamin C) 1,000 mg tablet 1 g PO DAILY One Daily Multi-Vit w-Mineral 4.5 mg iron tablet 1 tab PO DAILY Vitron-C 65 mg iron- 125 mg tablet,delayed release (DR/EC) 1 tab PO QHS Qty: 90 0RF Lactobacillus acidophilus 0.5 mg (100 million cell) Tablet 1,000 mmu cells PO TIDWM Qty: 90 0RF Magic Mouthwash (Lidocaine/Benadryl/Maalox) 120 mL suspension 10 ml PO QID PRNQty: 120 1RF Rx Instructions: Lidocaine Viscous 2 % mucosal solution 40 mL; Maalox 200 mg-200 mg-20 mg/5 mL oral suspension 40 mL; Benadryl 12.5 mg/5 mL oral elixir 40 mL; Per 120 mL SWISH AND SPIT. MAY COMPOUND IF FIRST PRODUCT IS NOT AVAILABLE. albuterol sulfate 90 mcg/actuation HFA aerosol inhaler 2 puff inhalation QID PRNQty: 6.7 1RF glucosamine-chondroitin [Cosamin DS] 500-400 mg tablet 2 tab PO DAILY estradiol 0.5 mg tablet 0.5 mg PO DAILY omeprazole 20 mg capsule,delayed release(DR/EC) 20 mg PO DAILY prednisone 5 mg tablet 5 mg PO DAILY Patient Comments: LAST DOSE 09/20/23 Follow Up/Referrals: Aury Estevez MD [Primary Care Provider] -
--- OUTSIDE RECORDS SUMMARY | 2023-10-02 22:27 | XMS_ITS | Encounter Summary ---
Author Name Unknown Organization [facility] Address [address] [place] [address] Care Team Providers Care Executive Administrative Asst Name Role Phone Elsewhere, Pcp Primary Care Provider Unavailabl e Reason for Visit * Reason Onset Date Comments Pre-visit Intake 10/12/2022 Encounter Details Date Type Department Care Team (Latest Contact Info) Description 10/12/2022 11:30 AM SURVEY RESEARCH PROFESSOR Clinical Communication Virtual Review in [place], [place] 200 [place], [place] [phone] Pre-visit Intake Social History Tobacco Use Types [...] How often do you attend chur or methodist services? Never 06/04/2022 Do you belong to [...] care, and heating? Not very hard 06/04/2022 [facility]ational Stress Questionnaire [...] Master's degree (e.g., MA, MS, Milly, MEd, ACCOUNT MANAGER RELIEF, MADELYN) 06/04/2022 Sex and Gender Information Value Date Recorded Sex Assigned at Female 06/04/2022 4:58 PM CDT Gender Identity Female 06/04/2022 4:58 PM CDT Sexual Orientation Straight 06/04/2022 4: 58 PM CDT documented as of this encounter Plan of Treatment Upcoming Encounters Date Type Department Care Team (Late st Contact Info) Description 11/11/2023 10:40 AM CDT Appointment Department of Laboratory Medicine and Pathology, [facility], in [place], [place] [address] [place] [phone] Radha Keen APRN, C.N.P., M.S.N. [address] [place] [phone] 11/11/2023 11:15 AM CDT Appointment Department of Radiology, [facility], in [place], [place] [address] [place] [phone] Radha Keen APRN, C.N.P., M.S.N. [address] [place] [phone] 11/11/2023 1:00 PM CDT Office Visit Division of Thoracic Surgery in [place], [place] [address] [place] [phone] Radha Keen APRN, C.NLuz Maria, M.S.N. [address] [place] [phone] documented as of this encounter Visit Diagnoses Not on filedocumented in this encounter Care Teams Executive Administrative Asst Relationship Specialty Start Date End Date Elsewhere, Pcp PCP - General Family Medicine 01/03/18 documented as of this encounter
--- OUTSIDE RECORDS SUMMARY | 2023-10-02 22:27 | XMS_ITS | Clinical Summary ---
Author Name Unknown Organization [facility] Address [place], [place] [address] Care Team Providers Care Dog Day Care Attendant Name Role Phone Chitra Bruno MD Primary Care Provider Allergies Active Allergy Reactions Criticality Noted Date Comments Penicillins *Unknown 09/05/2010 Tolerated cefepime 09/23/2023, Patient tolerated ceftriaxone 09/23/2023 Sulfa (Sulfonamide Antibiotics) 09/05/2010 Medications Medication Sig Dispensed Refills Start Date End Date Status albuterol HFA (PRO-AIR; VENTOLIN; PROVENTIL) 90 mcg/actuation inhaler Inhale 2 Puffs by mouth 4 times daily if needed for Shortness Of Breath or Wheezing. 0 Active estradioL (ESTRACE) 0.5 mg tablet Take 0.5 mg by mouth once daily. 0 Active omeprazole (PRILOSEC) 20 mg Delayed-Release capsule Take 20 mg by mouth once daily before a meal. 0 Active multivitamin (MVI) tablet Take 1 Tablet by mouth once daily. 0 Active ascorbic acid, vitamin C, (Vitamin C) 1,000 mg tablet Take 1,000 mg by mouth once daily. 0 Active cholecalciferol, Vitamin D3, (Vitamin D-3) 2,000 unit tablet Take 2,000 units by mouth once daily. 0 Active glucosamine-gabi droitin, 500-400mg, (COSAMIN DS) 500-400 mg tablet Take 1 Tablet by mouth three times daily. 0 Active zinc sulfate 50 mg zinc (220 mg) capsule Take 220 mg by mouth. every 3 days 0 Active estrogens conj synthetic (CENESTIN) 0.9 mg tablet Take 1 tablet by mouth once daily. 0 09/05/2010 09/21/2023 Discontinued( Other - add note to specify (E-cancel not sent)) FLUoxetine (PROZAC) 10 mg capsule Take 1 capsule by mouth every morning. 0 09/05/2010 09/21/2023 Discontinued( Other - add note to specify (E-cancel not sent)) alendronate (FOSAMAX) 70 mg tabletIndication s:Osteoporosis Take 1 tablet by mouth once a week in the morning. Take on empty stomach with full glass of water. Do not lie down for 1 hr. 12 tablet 3 09/28/2010 09/21/2023 Discontinued( Other - add note to specify (E-cancel not sent)) Active Problems Problem Noted Date Diagnosed Date Pneumonia due to COVID-19 virus 09/21/2023 Osteopenia 09/05/2010 Encounters Date Type Department Care Team Description 09/21/2023 5:27 PM TELECOMMUNICATIONS CABLE JOINTER - 10/02/2023 7:05 PM [facility] Hospital Encounter [facility] [address] [place] [address] Doctors([facility]), [facility] Oleksandr, MD Sweta Monaco, UDAY Paredes Amber Autumn, MD Yangchen, MD Alina Marin, MD Anum Law, Izabela Fu MD Pneumonia due to COVID-19 virus (Primary Dx) Discharge Disposition: Home Self Care 09/21/2023 Travel 07/31/2023 Lab Requisition [facility] [phone] Aury Estevez MD from Last 3 Months [...] Sign Reading Time Taken Comments Blood Pressure 137/79 10/02/2023 6:30 PM TELECOMMUNICATIONS CABLE JOINTER Pulse 84 10/02/2023 6:30 PM TELECOMMUNICATIONS CABLE JOINTER Temperature 36.7 ??C (98.1 ??F) 10/02/2023 6:30 PM CS T Respiratory Rate 18 10/02/2023 6:30 PM TELECOMMUNICATIONS CABLE JOINTER Oxygen Saturation 95% 10/02/2023 6:30 PM TELECOMMUNICATIONS CABLE JOINTER Inhaled Oxygen Concentration - - Weight 63 kg (139 lb) 09/21/2023 5:30 PM TELECOMMUNICATIONS CABLE JOINTER Height 172.7 cm (5' 8) 09/21/2023 6:36 PM TELECOMMUNICATIONS CABLE JOINTER Body Mass Index 21.13 09/21/2023 5:30 PM TELECOMMUNICATIONS CABLE JOINTER Plan of Treatment Upcoming Encounters Date Type Department Care Team (Late st Contact Info) Description 10/04/2023 11:15 AM TELECOMMUNICATIONS CABLE JOINTER Office Visit [facility] [address] [place] [address] Becky Garg, [address] [place] [address] Health Maintenance Due Date Last Done Comments [...] Tdap Completed 09/05/2010 COVID-19 vaccine series Completed 07/23/20 23, 03/05/2023, 08/07/2022, Additional history exists Procedures Procedure Name Priority Date/Time Associated Diagnosis Comments HEPATIC FUNCTION PANEL Today 4 1:49 PM TELECOMMUNICATIONS CABLE JOINTER HEPATIC FUNCTION PANEL Early AM 6:34 AM TELECOMMUNICATIONS CABLE JOINTER SCAN-CARDIAC STRIP 09/28/2023 4: 29 AM TELECOMMUNICATIONS CABLE JOINTER SCAN-CARDIAC STRIP 09/27/2023 8: 53 AM TELECOMMUNICATIONS CABLE JOINTER SCAN-CARDIAC STRIP 09/26/2023 4: 53 PM TELECOMMUNICATIONS CABLE JOINTER SCAN-CARDIAC STRIP 09/26/2023 10 :24 AM TELECOMMUNICATIONS CABLE JOINTER C-REACTIVE PROTEIN Timed 09/26/2023 6: 15 AM TELECOMMUNICATIONS CABLE JOINTER BASIC METABOLIC PANEL Early AM 09/26/2023 6:15 AM TELECOMMUNICATIONS CABLE JOINTER CBC W PLT NO DIFF Early AM 09/26/2023 6:1 5 AM TELECOMMUNICATIONS CABLE JOINTER SCAN-CARDIAC STRIP 09/26/2023 3: 04 AM TELECOMMUNICATIONS CABLE JOINTER SCAN-CARDIAC STRIP 09/25/2023 11 :22 AM TELECOMMUNICATIONS CABLE JOINTER POTASSIUM Today 09/25/2023 9:02 AM TELECOMMUNICATIONS CABLE JOINTER MAGNESIUM Today 09/25/2023 9:02 AM TELECOMMUNICATIONS CABLE JOINTER SCAN-CARDIAC STRIP 09/25/2023 6: 14 AM TELECOMMUNICATIONS CABLE JOINTER SPUTUM CULTURE, STAIN Today 09/24/2023 7:08 AM TELECOMMUNICATIONS CABLE JOINTER POTASSIUM Early AM 09/24/2023 6:25 AM TELECOMMUNICATIONS CABLE JOINTER FERRITIN Early AM 09/24/2023 6:25 AM TELECOMMUNICATIONS CABLE JOINTER SCAN-CARDIAC STRIP 09/24/2023 2: 41 AM TELECOMMUNICATIONS CABLE JOINTER SCAN-CARDIAC STRIP 09/23/2023 3: 57 PM TELECOMMUNICATIONS CABLE JOINTER HEPATIC FUNCTION PANEL EDER 1:07 PM TELECOMMUNICATIONS CABLE JOINTER C-REACTIVE PROTEIN Timed 09/23/2023 1: 07 PM TELECOMMUNICATIONS CABLE JOINTER COVID 19 ANTIBODY SEROLOGY Today 09/23/2023 9:56 AM TELECOMMUNICATIONS CABLE JOINTER SCAN CORRESP-EKG RESULTS 09/23/2023 8:38 AM TELECOMMUNICATIONS CABLE JOINTER SCAN CORRESP-IMAGING 09/23/2023 8:36 AM TELECOMMUNICATIONS CABLE JOINTER SCAN CORRESP-IMAGING 09/23/2023 8:36 AM TELECOMMUNICATIONS CABLE JOINTER SCAN-CARDIAC STRIP 09/23/2023 7: 45 AM TELECOMMUNICATIONS CABLE JOINTER POTASSIUM Early AM 09/23/2023 6:37 AM TELECOMMUNICATIONS CABLE JOINTER MAGNESIUM Early AM 09/23/2023 6:37 AM TELECOMMUNICATIONS CABLE JOINTER SCAN-CARDIAC STRIP 09/22/2023 8: 26 PM TELECOMMUNICATIONS CABLE JOINTER SCAN-CARDIAC STRIP 09/22/2023 6: 36 PM TELECOMMUNICATIONS CABLE JOINTER LD,TOTAL Today 09/22/2023 6:15 PM TELECOMMUNICATIONS CABLE JOINTER ASPERGILLUS FUMAGATUS IGG Today 09/22/2023 6:15 PM TELECOMMUNICATIONS CABLE JOINTER ASPERGILLUS GALACTOMANNAN AG BAL/BLOOD Today 09/22/2023 6:15 PM [address]UNICATIONS CABLE JOINTER CT CHEST WO Routine 09/22/2023 2:07 PM TELECOMMUNICATIONS CABLE JOINTER SCAN-CARDIAC STRIP 09/22/2023 10 :50 AM TELECOMMUNICATIONS CABLE JOINTER BASIC METABOLIC PANEL EDER 09/22/2023 9:58 AM TELECOMMUNICATIONS CABLE JOINTER CBC WITH AUTO DIFFERENTIAL Timed 09/22/2023 9:57 AM TELECOMMUNICATIONS CABLE JOINTER CBC WITH AUTO DIFFERENTIAL Timed 09/22/2023 9:57 AM TELECOMMUNICATIONS CABLE JOINTER PROCALCITONIN Timed 09/22/2023 9:57 AM TELECOMMUNICATIONS CABLE JOINTER POTASSIUM Timed 09/22/2023 8:04 AM TELECOMMUNICATIONS CABLE JOINTER MAGNESIUM Timed 09/22/2023 8:04 AM TELECOMMUNICATIONS CABLE JOINTER SCAN-CARDIAC STRIP 09/22/2023 1: 10 AM TELECOMMUNICATIONS CABLE JOINTER SCAN-CARDIAC STRIP 09/21/2023 7: 04 PM TELECOMMUNICATIONS CABLE JOINTER LAB TRACKING EVENT Routine 07/31/2023 11 :30 AM TELECOMMUNICATIONS CABLE JOINTER PATH BREAST CORE BIOPSY Routine 07/31/2023 11:30 AM TELECOMMUNICATIONS CABLE JOINTER from Last 3 Months Results * (ABNORMAL) HEPATIC FUNCTION PANEL (09/30/2023 1:49 PM TELECOMMUNICATIONS CABLE JOINTER) Only the most recent of3 resultswithin the time period is included. ALBUMIN 3.9(L) 4.0 - 4.9 g/dL 09/30/2023 2:21 PM [facility] PROTEIN,TOTAL 5.6(L) 6.0 - 8.0 g/dL 09/30/2023 2:21 PM [facility] BILIRUBIN,TOTAL 0.2 0.0 - 1.2 mg/dL 09/30/2023 2:21 PM [facility] BILIRUBIN,DIRECT <0.2 0.0 - 0.3 mg/dL 09/30/2023 2:21 PM [facility] BILIRUBIN,INDIRE CT 09/30/2023 2:21 PM [facility] Comment:Unable to calculate, Direct Bili <0.2 ALK PHOSPHATASE 87 35 - 104 IU/L 09/30/2023 2:21 PM [facility] ALT (SGPT) 47(H) 10 - 35 IU/L 09/30/2023 2:21 PM [facility] AST (SGOT) 21 10 - 35 IU/L 09/30/2023 2:21 PM [facility] Blood BLOOD SPECIMEN / Unknown Venipuncture / Unknown 09/30/2023 1:49 PM TELECOMMUNICATIONS CABLE JOINTER 09/30/2023 1:56 PM TELECOMMUNICATIONS CABLE JOINTER Felipa MUELLER CHEMISTRY [facility] [place] ZIP [phone] [place] [address] * SCAN-CARDIAC STRIP (09/28/2023 4:29 AM TELECOMMUNICATIONS CABLE JOINTER) Scanner OTHER * SCAN-CARDIAC STRIP (09/27/2023 8:53 AM TELECOMMUNICATIONS CABLE JOINTER) Scanner OTHER * SCAN-CARDIAC STRIP (09/26/2023 4:53 PM TELECOMMUNICATIONS CABLE JOINTER) Scanner OTHER * SCAN-CARDIAC STRIP (09/26/2023 10:24 AM TELECOMMUNICATIONS CABLE JOINTER) Scanner OTHER * (ABNORMAL) CBC W PLT NO DIFF (09/26/2023 6:15 AM TELECOMMUNICATIONS CABLE JOINTER) WHITE BLOOD COUNT 4.5 4.5 - 11.0 thou/cu mm 09/26/2023 7:39 AM [facility] RED BLOOD COUNT 3.45(L) 4.00 - 5.20 mil/cu mm 09/26/2023 7:39 AM [facility] HEMOGLOBIN 10.0(L) 12.0 - 16.0 g/dL 09/26/2023 7:39 AM [facility] HEMATOCRIT 29.8(L) 33.0 - 51.0 % 09/26/2023 7:39 AM [facility] MCV 86 80 - 100 fL 09/26/2023 7:39 AM [facility] MCH 29.0 26.0 - 34.0 pg 09/26/2023 7:39 AM [facility] MCHC 33.6 32.0 - 36.0 g/dL 09/26/2023 7:39 AM [facility] RDW 14.1 11.5 - 15.5 % 09/26/2023 7:39 AM [facility] PLATELET COUNT 387 140 - 440 thou/cu mm 09/26/2023 7:39 AM [facility] MPV 9.7 6.5 - 11.0 fL 09/26/2023 7:39 AM TELECOMMUNICATIONS CABLE JOINTER [facility] NRBC 0.0 % 09/26/2023 7:39 AM TELECOMMUNICATIONS CABLE JOINTER [facility] ABS NRBC 0.0 thou /cu mm 09/26/2023 7:39 AM [facility] Blood BLOOD SPECIMEN / Unknown Butterfly / Unknown 09/26/2023 6:15 AM TELECOMMUNICATIONS CABLE JOINTER 09/26/2023 7:14 AM TELECOMMUNICATIONS CABLE JOINTER Lucia Hernadez MD HEMATOLOGY [facility] INTERNAL ZIP [phone] [place], [place] [id number] * (ABNORMAL) C-REACTIVE PROTEIN (09/26/2023 6:15 AM TELECOMMUNICATIONS CABLE JOINTER) Only the most recent of2 resultswithin the time period is included. C-REACTIVE PROTEIN 3.5(H) <0.5 mg/dL 09/26/2023 7:56 AM [facility] Blood BLOOD SPECIMEN / Unknown Butterfly / Unknown 09/26/2023 6:15 AM TELECOMMUNICATIONS CABLE JOINTER 09/26/2023 7:14 AM TELECOMMUNICATIONS CABLE JOINTER Lucia Hernadez MD CHEMISTRY [facility] INTERNAL ZIP [phone] [place] [id number] * (ABNORMAL) BASIC METABOLIC PANEL (09/26/2023 6:15 AM TELECOMMUNICATIONS CABLE JOINTER) Only the most recent of2 resultswithin the time period is included. SODIUM 139 136 - 145 mmol/L 09/26/2023 7:56 AM [facility] POTASSIUM 4.2 3.5 - 5.1 mmol/L 09/26/2023 7:56 AM TELECOMMUNICATIONS CABLE JOINTER [facility] CHLORIDE 102 98 - 107 mmol/L 09/26/2023 7:56 AM [facility] CO2,TOTAL 29 22 - 29 mmol/L 09/26/2023 7:56 AM [facility] ANION GAP 8 5 - 18 09/26/2023 7:56 AM [facility] GLUCOSE 106(H) 70 - 99 mg/dL 09/26/2023 7:56 AM [facility] CALCIUM 9.0 8.8 - 10.2 mg/dL 09/26/2023 7:56 AM [facility] BUN 13 8 - 23 mg/dL 09/26/2023 7:56 AM [facility] CREATININE 0.41(L) 0.50 - 0.90 mg/dL 09/26/2023 7:56 AM [facility] BUN/CREAT RATIO 32(H) 10 - 20 7:56 AM [facility] eGFR >90 >90 mL/min/1.7 3m2 09/26/2023 7:56 AM [facility] Comment:As of 2021, eG FR is calculated by the CKD-EPI creatinine equation without race adjustment. ??eGFR can be influenced by muscle mass, exercise, and diet. ??The reported eGFR is an estimation only and is only applicable if the renal function is stable. Blood BLOOD SPECIMEN / Unknown Butterfly / Unknown 09/26/2023 6:15 AM TELECOMMUNICATIONS CABLE JOINTER 09/26/2023 7:14 AM TELECOMMUNICATIONS CABLE JOINTER Lucia Hernadez MD CHEMISTRY [facility] INTERNAL ZIP [phone] [place], [place] [id number] * SCAN-CARDIAC STRIP (09/26/2023 3:04 AM TELECOMMUNICATIONS CABLE JOINTER) Scanner OTHER * SCAN-CARDIAC STRIP (09/25/2023 11:22 AM TELECOMMUNICATIONS CABLE JOINTER) Scanner OTHER * POTASSIUM (09/25/2023 9:02 AM TELECOMMUNICATIONS CABLE JOINTER) Only the most recent of4 resultswithin the time period is included. POTASSIUM 3.5 3.5 - 5.1 mmol/L 09/25/2023 9:28 AM TELECOMMUNICATIONS CABLE JOINTER [facility] Blood BLOOD SPECIMEN / Unknown Butterfly / Unknown 09/25/2023 9:02 AM TELECOMMUNICATIONS CABLE JOINTER 09/25/2023 9:07 AM TELECOMMUNICATIONS CABLE JOINTER Yesica Shaw RN CHEMISTRY Performing Organization Address [facility]/ZIP Co de Phone Number [facility] INTERNAL ZIP [phone] [place] [phone] * MAGNESIUM (09/25/2023 9:02 AM TELECOMMUNICATIONS CABLE JOINTER) Only the most recent of3 resultswithin the time period is included. MAGNESIUM 2.1 1.6 - 2.4 mg/dL 09/25/2023 9:27 AM TELECOMMUNICATIONS CABLE JOINTER [facility] Blood BLOOD SPECIMEN / Unknown Butterfly / Unknown 09/25/2023 9:02 AM TELECOMMUNICATIONS CABLE JOINTER 09/25/2023 9:07 AM TELECOMMUNICATIONS CABLE JOINTER Yesica Shaw RN CHEMISTRY Performing Organization Address [facility]/ZIP Co de Phone Number [facility] INTERNAL ZIP [phone] [place] [phone] * SCAN-CARDIAC STRIP (09/25/2023 6:14 AM TELECOMMUNICATIONS CABLE JOINTER) Scanner OTHER * SPUTUM CULTURE, STAIN (09/24/2023 7:08 AM TELECOMMUNICATIONS CABLE JOINTER) CULTURE Usual jose 09/28/2023 10:58 AM [facility] GRAM STAIN 1+ PMNs 09/28/2023 10:58 AM TELECOMMUNICATIONS CABLE JOINTER [facility] GRAM STAIN No RBCs 09/28/2023 10:58 AM TELECOMMUNICATIONS CABLE JOINTER [facility] GRAM STAIN 1+ Epithelial cells 09/28/2023 10:58 AM TELECOMMUNICATIONS CABLE JOINTER [facility] GRAM STAIN No organisms seen 09/28/2023 10:58 AM TELECOMMUNICATIONS CABLE JOINTER [facility] GRAM STAIN Gram stain performed by [place] 09/28/2023 10:58 AM TELECOMMUNICATIONS CABLE JOINTER [facility] Sputum SPUTUM SPECIMEN / Unknown Non-Blood / Unknown 09/24/2023 7:08 AM TELECOMMUNICATIONS CABLE JOINTER 09/24/2023 7:20 AM TELECOMMUNICATIONS CABLE JOINTER Tre Leggett MD MICROBIOLOGY [facility] [address] [place] [id number], [facility] INTERNAL ZIP [address] [place] [address] * (ABNORMAL) FERRITIN (09/24/2023 6:25 AM TELECOMMUNICATIONS CABLE JOINTER) FERRITIN 251.0(H) 15.0 - 150.0 ng/mL 09/24/2023 9:40 AM TELECOMMUNICATIONS CABLE JOINTER [facility] Blood BLOOD SPECIMEN / Unknown Butterfly / Unknown 09/24/2023 6:25 AM TELECOMMUNICATIONS CABLE JOINTER 09/24/2023 6:44 AM TELECOMMUNICATIONS CABLE JOINTER Malik JOHNSONBS CHEMISTRY [facility] [address] [place] [address], * SCAN-CARDIAC STRIP (09/24/2023 2:41 AM TELECOMMUNICATIONS CABLE JOINTER) Scanner OTHER * SCAN-CARDIAC STRIP (09/23/2023 3:57 PM TELECOMMUNICATIONS CABLE JOINTER) Scanner OTHER * COVID 19 ANTIBODY SEROLOGY (09/23/2023 9:56 AM TELECOMMUNICATIONS CABLE JOINTER) SARS-COV-2 AB, NUCLEOCAPSID Negative Negative 09/24/2023 9:10 AM TELECOMMUNICATIONS CABLE JOINTER [facility] Comment: This sample does not contain detectable SARS-CoV-2 antibodies. This negative result does not rule out SARS-CoV-2 infection. Correlation with epidemiologic risk factors and other clinical and laboratory findings is recommended. Serologic results should not be used as the sole basis to diagnose or exclude recent SARS-CoV-2 infection. This assay will not detect antibodies induced by the currently available SARS-CoV-2 vaccines. The current vaccines elicit antibodies specific to the viral spike protein. [facility] offers two test codes that detect viral spike-specific antibodies: 716269 SARS-CoV-2 Semi-Quantitative Total Antibody, Navin and [id number] SARS-CoV-2 Antibody, IgG, Navin (Qualitative). Positive results with this SARS-CoV-2 Antibodies, Nucleocapsid assay suggest recent or previous natural infection with SARS-CoV-2. Blood BLOOD SPECIMEN / Unknown Butterfly / Unknown 09/23/2023 9:56 AM TELECOMMUNICATIONS CABLE JOINTER 09/23/2023 10:00 AM TELECOMMUNICATIONS CABLE JOINTER Narrative [facility] ([facility]) - 09/24/2023 9:10 AM TELECOMMUNICATIONS CABLE JOINTER Test(s) [id number] Ab, Nucleocapsid has not been FDA cleared or approved. This test has been authorized by FDA under an Emergency Use Authorization (EUA). This test is only authorized for the duration of the declaration that circumstances exist justifying the authorization of emergency use of in vitro diagnostics for detection and/or diagnosis of COVID-19 under Section 564(b)(1) of the Act, 21 U.S.C. 360bbb-3(b)(1), unless the authorization is terminated or revoked sooner. This test has been authorized only for detecting the presence of antibodies against SARS-CoV-2, not for any other viruses or pathogens. Performed at: ??01 - [address] ??[id number] Automation Manager: Bill Mensah MD, Phone: ??[phone] Marily Naik MD CHEMISTRY [facility] ([facility]) [address] [place] [address], * SCAN CORRESP-EKG RESULTS (09/23/2023 8:38 AM TELECOMMUNICATIONS CABLE JOINTER) Narrative 09/23/2023 8:38 AM TELECOMMUNICATIONS CABLE JOINTER Ordered by an unspecified provider. Other Clinical Staff OTHER * SCAN CORRESP-IMAGING (09/23/2023 8:36 AM TELECOMMUNICATIONS CABLE JOINTER) Only the most recent of2 resultswithin the time period is included. Anatomical Region Laterality Modality Other Narrative 09/23/2023 8:36 AM TELECOMMUNICATIONS CABLE JOINTER Ordered by an unspecified provider. Other Clinical Staff OTHER * SCAN-CARDIAC STRIP (09/23/2023 7:45 AM TELECOMMUNICATIONS CABLE JOINTER) Scanner OTHER * SCAN-CARDIAC STRIP (09/22/2023 8:26 PM TELECOMMUNICATIONS CABLE JOINTER) Scanner OTHER * SCAN-CARDIAC STRIP (09/22/2023 6:36 PM TELECOMMUNICATIONS CABLE JOINTER) Scanner OTHER * ASPERGILLUS GALACTOMANNAN AG BAL/BLOOD (09/22/2023 6:15 PM TELECOMMUNICATIONS CABLE JOINTER) Aspergillus Ag BAL Serum 0.04 0.00 - 0.49 Index 09/27/2023 2:07 AM TELECOMMUNICATIONS CABLE JOINTER [facility] ([facility]) Other BLOOD SPECIMEN / Unknown Non-Blood / Unknown 09/22/2023 6:15 PM TELECOMMUNICATIONS CABLE JOINTER 09/22/2023 6:19 PM TELECOMMUNICATIONS CABLE JOINTER Narrative [facility] ([facility]) - 09/27/2023 2:07 AM TELECOMMUNICATIONS CABLE JOINTER Performed at: ??01 - [facility] [address] ??[id number] Automation Manager: Bill Mensah MD, Phone: ??[phone] Performed at: ??02 - [facility] [address] [place], [place] ??[id number] Automation Manager: Rui Greene [facility], Phone: ??[phone] Theresa Moreno MD SEND OUTS [facility] ([facility]) [address] [place] [id number] * ASPERGILLUS FUMAGATUS IGG (09/22/2023 6:15 PM TELECOMMUNICATIONS CABLE JOINTER) Pathologist [facility] Aspergillus fumagatus IgG <2.0 0.0 - 66.5 mg/L 09/25/2023 4:08 PM TELECOMMUNICATIONS CABLE JOINTER [facility] ([facility]) Blood BLOOD SPECIMEN / Unknown Butterfly / Unknown 09/22/2023 6:15 PM TELECOMMUNICATIONS CABLE JOINTER 09/22/2023 6:19 PM TELECOMMUNICATIONS CABLE JOINTER Narrative [facility] ([facility] - 09/25/2023 4:08 PM TELECOMMUNICATIONS CABLE JOINTER Performed at: ??01 - [address] ??[id number] Automation Manager: Mohsen Arias MD, Phone: ??[phone] Theresa Moreno MD SEND OUTS [facility] ([facility]) [address] [place] [address], * (ABNORMAL) LD,TOTAL (09/22/2023 6:15 PM TELECOMMUNICATIONS CABLE JOINTER) Pathologist [facility] LD,TOTAL 253(H) 135 - 214 IU/L 09/22/2023 6:54 PM TELECOMMUNICATIONS CABLE JOINTER [facility] Blood BLOOD SPECIMEN / Unknown Butterfly / Unknown 09/22/2023 6:15 PM TELECOMMUNICATIONS CABLE JOINTER 09/22/2023 6:19 PM TELECOMMUNICATIONS CABLE JOINTER Theresa Moreno MD CHEMISTRY [facility] INTERNAL ZIP [phone] [place] [address] * CT CHEST WO (09/22/2023 2:07 PM TELECOMMUNICATIONS CABLE JOINTER) Anatomical Region Laterality Modality CHEST, THORAX, HEART Computed To mography 09/22/2023 2:07 PM TELECOMMUNICATIONS CABLE JOINTER Impressions 09/22/2023 5:07 PM TELECOMMUNICATIONS CABLE JOINTER 1. ??Bilateral groundglass opacities with some areas of superimposed consolidation. Appearance is consistent with COVID 19 pneumonia. Narrative 09/22/2023 5:07 PM TELECOMMUNICATIONS CABLE JOINTER For Patients: As a result of the Cures Act, medical imaging exams and procedure reports are released immediately into your electronic medical record. You may view this report before your referring provider. If you have questions, please contact your health care provider. EXAM: CT CHEST WO LOCATION: [facility] DATE: 09/22/2023 INDICATION: Pneumonia, complication suspected, xray [...] care provider. EXAM: CT CHEST WO LOCATION: [facility] DATE: 09/22/2023 INDICATION: Pneumonia, complication suspected, xray [...] consistent with COVID 19 pneumonia. Malik Kaye [facility] CT * SCAN-CARDIAC STRIP (09/22/2023 10:50 AM TELECOMMUNICATIONS CABLE JOINTER) Scanner OTHER * (ABNORMAL) CBC WITH AUTO DIFFERENTIAL (09/22/2023 9:57 AM TELECOMMUNICATIONS CABLE JOINTER) WHITE BLOOD COUNT 6.2 4.5 - 11.0 thou/cu mm 09/22/2023 10:32 AM [facility] RED BLOOD COUNT 3.57(L) 4.00 - 5.20 mil/cu mm 09/22/2023 10:32 AM [facility] HEMOGLOBIN 10.4(L) 12.0 - 16.0 g/dL 09/22/2023 10:32 AM [facility] HEMATOCRIT 31.0(L) 33.0 - 51.0 % 09/22/2023 10:32 AM [facility] MCV 87 80 - 100 fL 09/22/2023 10:32 AM [facility] MCH 29.1 26.0 - 34.0 pg 09/22/2023 10:32 AM [facility] MCHC 33.5 32.0 - 36.0 g/dL 09/22/2023 10:32 AM [facility] RDW 14.1 11.5 - 15.5 % 09/22/2023 10:32 AM [facility] PLATELET COUNT 295 140 - 440 thou/cu mm 09/22/2023 10:32 AM [facility] MPV 9.6 6.5 - 11.0 fL 09/22/2023 10:32 AM [facility] NRBC 0.0 % 09/22/2023 10:32 AM [facility] ABS NRBC 0.0 thou /cu mm 09/22/2023 10:32 AM [facility] % NEUT 80.9 % 09/22/2023 10:32 AM [facility] % LYMPH 10.6 % 09/22/2023 10:32 AM [facility] % MONO 8.0 % 09/22/2023 10:32 AM [facility] [facility] % EOS 0.0 % 09/22/2023 10:32 AM [facility] % BASO 0.0 % 09/22/2023 10:32 AM [facility] % IMMATURE GRAN (METAS,MYELOS,WI OS) 0.5 % 09/22/2023 10:32 AM [facility] ABSOLUTE NEUTROPHILS 5.0 1.7 - 7.0 thou/cu mm 09/22/2023 10:32 AM [facility] ABSOLUTE LYMPHOCYTES 0.7(L) 0.9 - 2.9 thou/cu mm 09/22/2023 10:32 AM [facility] ABSOLUTE MONOCYTES 0.5 <0.9 thou/cu mm 09/22/2023 10:32 AM [facility] ABSOLUTE EOSINOPHILS 0.0 <0.5 thou/cu mm 09/22/2023 10:32 AM [facility] ABSOLUTE BASOPHILS 0.0 <0.3 thou/cu mm 09/22/2023 10:32 AM [facility] ABSOLUTE IMMATURE GRANULOCYTES(MET ,MYELOS,PROS) 0.0 <0.3 thou/cu mm 09/22/2023 10:32 AM [facility] Blood BLOOD SPECIMEN / Unknown Butterfly / Unknown 09/22/2023 9:57 AM TELECOMMUNICATIONS CABLE JOINTER 09/22/2023 10:23 AM [facility] Elida FRYE HEMATOLOGY [facility] [place]NAL ZIP [phone] [place] [address] * PROCALCITONIN (09/22/2023 9:57 AM TELECOMMUNICATIONS CABLE JOINTER) PROCALCITONIN 0.14 ng/ml 09/22/2023 11:01 AM [facility] Blood BLOOD SPECIMEN / Unknown Butterfly / Unknown 09/22/2023 9:57 AM TELECOMMUNICATIONS CABLE JOINTER 09/22/2023 10:23 AM TELECOMMUNICATIONS CABLE JOINTER [facility] - 09/22/2023 11:01 AM TELECOMMUNICATIONS CABLE JOINTER Procalcitonin for initial assessment of Lower Respiratory [...] < 2 ng/mL are obtained. Elida Sol MBBS SEND OUTS [facility] INTERNAL ZIP [address] [place] [address] * SCAN-CARDIAC STRIP (09/22/2023 1:10 AM TELECOMMUNICATIONS CABLE JOINTER) Scanner OTHER * SCAN-CARDIAC STRIP (09/21/2023 7:04 PM TELECOMMUNICATIONS CABLE JOINTER) Scanner OTHER * LAB TRACKING EVENT (07/31/2023 11:30 AM TELECOMMUNICATIONS CABLE JOINTER) Other (Other) Client Collect / Unknown 07/31/2023 11:30 AM TELECOMMUNICATIONS CABLE JOINTER 07/31/2023 8:50 PM TELECOMMUNICATIONS CABLE JOINTER Aury Estevez MD LAB BILL ONLY [facility] 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 Authorizing Provider: ??Aury Estevez MD ??Collected: ? 07/31/2023 1130 ? Ordering Location: ? [facility] ?Received: ?07/31/20232055 ? Pathologist: ? Dale Helton MD ? Specimen: ?Right Breast Core Ultrasound Biopsy ? 08/01/2023 10:26 AM [facility] [employer] LABORATORY-C ENTRAL LABORATORY Final Diagnosis A) RIGHT BREAST, 9:00, 1 CM FROM NIPPLE, ULTRASOUND-GUID ED CORE BIOPSY: 1. Nodular densely fibrous breast stroma and dilated ducts 2. Negative for atypia and malignancy 08/01/2023 10:26 AM [facility] [employer] LABORATORY-C ENTRAL LABORATORY Comment A) This is an image-guided breast biopsy. The pathologic findings should be correlated with radiologic and clinical findings prior to treatment decisions. Case seen in consultation with Dr. Andres. 08/01/2023 10:26 AM [facility] [employer] LABORATORY-C ENTRAL LABORATORY Clinical Information RIGHT breast lobulated, indistinct, hypoechoic, solid mass at 9:00, 1 cm from the nipple measuring 2.4 cm 08/01/2023 10:26 AM [facility] [employer] LABORATORY-C ENTRAL LABORATORY Gross Description A) Label: [...] 72 hours. TLF 07/31/2023 08/01/2023 10:26 AM [facility] [employer] LABORATORY-C ENTRAL LABORATORY Microscopic Description The final diagnosis is based on microscopic examination of appropriate sections of all specimens. A) The presence of blue ink is confirmed on tissue sections. 08/01/2023 10:26 AM TELECOMMUNICATIONS CABLE JOINTER [facility] Additional Information Interpreted at [facility], Central Laboratory - [address] [facility] [address] [facility] [address], [place] [address] 08/01/2023 10:26 AM TELECOMMUNICATIONS CABLE JOINTER [facility] LABORAT[facility]-C ENTRAL LABORATORY Other (Right Breast Core Ultrasound Biopsy) 07/31/2023 11:30 AM TELECOMMUNICATIONS CABLE JOINTER 07/31/2023 8:56 PM TELECOMMUNICATIONS CABLE JOINTER Aury Estevez MD PATHOLOGY/CYTOLO GY [facility] [address] [place] [address], from Last 3 Months Additional Health Concerns Infection Onset Date Last Indicated COVID-19 Comment:+COVID-19 09/18/23 per H&P note dated 09/21/23 Also indicates +COVID-19 06/08/23 * Unclear if this new positive result indicates a new COVID-19 infection. * For evaluation of subsequent COVID+ results, refer to the algorithm on the AKN: Isolation Precaution Recommendations for Patients with History of COVID-19 Infection. * If not deemed to be a new COVID-19 infection per provider, reach out to infection prevention to clear COVID-19 infection flag. 09/23/2023 09/23/2023 Advance Directives Latest Code Status on File Code Status Date Activated Date Inactivated Comments Full Code 09/21/2023 5:55 PM 10/02/2023 9:17 PM Question Answer Comments Code Status Discussion: Reviewed Preferences Care Teams Dog Day Care Attendant Relationship Specialty Start Date End Date Chitra Bruno MD [address] [place] [address] PCP - General Family Practice 08/29/10
--- OUTSIDE RECORDS SUMMARY | 2023-10-02 22:27 | XMS_ITS | Encounter Summary ---
Author Name Unknown Organization [facility] Address [address] [place] [address] Care Team Providers Care Jewelry Manager Name Role Phone Elsewhere, Pcp Primary Care Provider Unavailabl e Encounter Details Date Type Department Care Team (Late st Contact Info) Description 09/20/2022 Orders Only Division of Thoracic Surgery in [place], [place] [address] [place] [phone] Mookie Jaimes III, P.AYesika-Angela [address] [place] [address] Social History Tobacco Use Types Packs/Day Years [...] 06/04/2022 How often do you attend chur Trulia or lutheran services? Never 06/04/2022 Do you belong to any clubs o r organizations such as taoist groups, unions, fraternal or athletic groups, [...] care, and heating? Not very hard 06/04/2022 [facility] of Occupat ional Health - Occupational Stress [...] Master's degree (e.g., MA, MS, Milly, MEd, ELEMENTARY CLASSROOM TEACHER, MADELYN) 06/04/2022 Sex and Gender Information [...] of Laboratory Medicine and Pathology, [facility], in [place], [place] [address] [place] [address] Radha Keen APRN, C.N.P., M.S.N. [address] [place] [phone] 11/11/2023 11:15 AM CDT Appointment Department of Radiology, [facility], in [place], [place] [address] [place] [address] Radha Keen APRN, C.NCasandra., M.S.N. [address] [place] [phone] 11/11/2023 1:00 PM CDT Office Visit Division of Thoracic Surgery in [place], [place] [address] [place] [address] Radha Keen APRN, Sandip.N.P., M.S.N. [address] [place] [phone] documented as of this encounter Visit Diagnoses Not on filedocumented in this encounter Care Teams Jewelry Manager Relationship Specialty Start Date End Date Elsewhere, Pcp PCP - General Family Medicine 01/03/18 documented as of this encounter
--- OUTSIDE RECORDS SUMMARY | 2023-10-02 22:27 | XMS_ITS | Data Portability ---
Author Name Unknown Address [address] [place] [address] Phone [phone] Organization [place] - [facility] [place] Address [facility] [address] [place] [address] Care Team Providers Care Pull Through Hooker Name Role Phone BRUCE FORREST Primary Care Provider FLORA KEMP Referring Provider [phone] NIKO CRISOSTOMO Primary Care Provider Assessment No assessment recorded. Plan of Treatment Reminders Order Date Submit Date Provider Last Modified By Organization Details Last Modified Time Details Appointments None recorded. Lab None recorded. Referral None recorded. Procedures None recorded. Surgeries None recorded. Imaging None recorded. Medication Orders triamcinolo ne acetonide 0.1 % dental paste 2022 023 [facility] [id number] [employer], [facility], [address], 15:33:29 dexamethaso ne 0.5 mg/5 mL oral elixir 2022 023 [facility] [id number] [employer], [address] [facility] [place], [address], 15:33:28 Patient TargetsNo targets recorded. Patient Instructions Encounter Date Encounter Id Patient Instructions Last Modified By Organization Details Last Modified Time 01/16/2023 [id number] canker sore: car e instructions jbarss Not [...] subsides. I also recommended she see a Director Insurance for an evaluation. She knows to reach [...] Time procedure on lung completed [facility] 01/16/2023 14:30:06 Imaging Results None recorded. Procedure Notes None recorded. Medical Equipment None Reported. Allergies Allergen ID Allergen Name Allergen Category Reaction Reaction Severity Criticality Documentation Date Start Date Code Code System Note Provider Name and Address Organization Details Recorded Time 43104 Medicinal product containin g penicilli n and acting as antibacte rial agent (product) medicatio n Not available Not available Not available 01/16/2023 70579 05 SNOMED NEDA [facility] 14:38:42 90917 Substance with sulfonami de structure and antibacte rial mechanism of action (substanc e) medicatio n Not available Not available Not available 01/16/2023 21734 8003 SNOMED Rea Pace [facility] 14:38:49 Medications [...] 118 mm[Hg] 63 mm[Hg] Rea venturaNEDA - [facility] 01/16/2023 14:37:47 Social History Question Answer Notes LastModified by Organizat ion Details LastModified Time Tobacco Smoking Status Never Smoker Rea ventura [facility] 01/16/2023 [...] Head Trauma/Injury N Irritable bowel syndrome N Depression Y COPD N Glaucoma N Lung Disease N Hypothyroidism N Pneumonia Y Pacemaker N Orthopedic Problems N Obstructive Sleep Apnea N Anxiety Disorder N Muscle, Joint, or Bone Problems N Autoimmune disease N Vision or Eye Problems N Arthritis N Serious Illness or Injuries N Acid Reflux (GERD) N Cancer N Stroke N Neck Injury N Eating disorder N Back Injury N High Cholesterol N Neurologic Disorder N History of chemotherapy N Liver Disease N Organ Transplant N Rheumatoid Arthritis N Fibromyalgia N Headaches N Kidney Disease N Allergies/Hayfever N Post traumatic stress disorder (PTSD) N Parkinson's Disease N Migraines N Thyroid Problems N Brain Tumors N Anemia N Multiple Sclerosis N Immune System Disorder N Meningitis N Pancreatic disease N Heart Attack (MD) N Stomach Ulcers N Diabetes N Back pain Y Bleeding Disorder N Seizures/Epilepsy N Sjogren's syndrome N Tuberculosis N AIDS/HIV N Hyperlipidemia N History of radiation therapy N Dementia N Asthma N Physical or sexual abuse N Substance Abuse N Psoriasis N Peripheral Vascular Disease N Reflux/GERD N Mental Problems N Vertigo N Sleep Disorder N GERD/Reflux N Hepatitis N Aneurysm N Neuropathy N Heart Disease N Pulmonary Embolism N Hypertension N Osteoporosis N Gynecological HistoryNo gynecological history recorded. Obstetrics History GPAL:G 0 P 0 0 0 0 Past Encounters Encounter ID Performer Location Encounter Start Date Encounter Closed Date Diagnosis/Indication [id number] Helena Villalta DDS [address] [place] [address] 01/16/2023 14:17:38 01/16/2023 15:33:21 Aphthous ulcer of [...] AFTER 19 (MEDICARE REPLACEMENT/ ADVANTAGE - HMO) [id number] Alexia Phillips [id number] Alexia Phillips Notes Date Note Type Note [...] last jul 2023. Helena Villalta DDS [address] [facility] [address], [place], [address], [facility] 01/16/2023 22:21:14 OBGyn Episode No OBEpisode recorded.
--- OUTSIDE RECORDS SUMMARY | 2023-10-02 22:27 | XMS_ITS | Encounter Summary ---
Author Name Unknown Organization [facility] Address [address] [place] [address] Care Team Providers Care Senior Enterprise Architect Name Role Phone Elsewhere, Pcp Primary Care Provider Unavailabl e Encounter Details Date Type Department Care Team (Late st Contact Info) Description 10/03/2022 Clinical Communication Division of Thoracic Surgery in [place], [place] [address] [place] [phone] Rosaura Claudio M.D., Ph.D. [address] [place] [address] Social History Tobacco Use Types Packs/Day Years [...] often do you attend chur ch or taoist services? Never 06/04/2022 Do you belong to any clubs o r organizations such as sikh groups, unions, fraThink Big [employer] or athletic groups, or school groups? No [...] and heating? Not very hard 06/04/2022 [facility] of Occupat ional Health - Occupational Stress [...] Master's degree (e.g., MA, MS, Milly, MEd, BARREL REAMER, MADELYN) 06/04/2022 Sex and Gender Information Value Date Recorded Sex Assigned at Female 06/04/2022 4:58 PM CDT Gender Identity Female 06/04/2022 4:58 PM CDT Sexual Orientation Straight 06/04/2022 4: 58 PM CDT documented as of this encounter Miscellaneous Notes * Telephone Encounter - Radha Keen APRN, C.N.P. - 10/05/2022 1:34 PM CST Left another message. ER TALLIER * Telephone Encounter - Radha Keen APRN, C.N.P. - 10/04/2022 9:46 AM CST Left message ER TALLIER documented in this encounter Plan of Treatment Upcoming Encounters Date Type Department Care Team (Late st Contact Info) Description 11/11/2023 10:40 AM CDT Appointment Department of Laboratory Medicine and Pathology, [place], [place] [address] [place] [phone] Radha Keen APRN, C.N.P., M.S.N. [address] [place] [phone] 11/11/2023 11:15 AM CDT Appointment Department of Radiology, [facility] in [place], [place] [address] [place] [phone] Radha Keen APRN, Sandip.N.P., M.S.N. [address] [place] [phone] 11/11/2023 1:00 PM CDT Office Visit Division of Thoracic Surgery in [place], [place] [address] [place] [phone] Radha Keen APRN, C.N.P., M.S.N. [address] [place] [phone] documented as of this encounter Visit Diagnoses Not on filedocumented in this encounter Care Teams Senior Enterprise Architect Relationship Specialty Start Date End Date Elsewhere, Pcp PCP - General Family Medicine 01/03/18 documented as of this encounter
--- OUTSIDE RECORDS SUMMARY | 2023-10-02 22:27 | XMS_ITS | Encounter Summary ---
Author Name Unknown Organization [facility] Address [address] [place] [address] Care Team Providers Care Cafe Team Member Name Role Phone Elsewhere, Pcp Primary Care Provider Unavailabl e Reason for Referral * Outpatient (Routine) - Closed Specialty Diagnoses / Procedures Referred By Joe allison Referred To Contact Thoracic Surgery Abril Nash P.A.-C. [address] [place] [address] [facility] Referral ID Status Reason Start Date Expiration Date Visits Re quested Visits Authorized [id number] Closed 10/30/2022 10/29/2025 1 1 ICAL DENTAL TECHNICIAN * MRI/CAT/PET Scan (Routine) - Closed Specialty Diagnoses / Procedures Referred By Joe allison Referred To Contact Radiology Diagnoses Mass Mediastinal Procedures CT Chest with IV Contrast Abril Nash P.A.-C. [address] [place] [phone] [facility] Referral ID Status Reason Start Date Expiration Date Visits Re quested Visits Authorized [id number] Closed 10/30/2022 10/30/2023 1 1 ICAL DENTAL TECHNICIAN Reason for Visit * Outpatient (Routine) - Closed Specialty Diagnoses / Procedures Referred By Joe t Referred To Contact Video Medicine Diagnoses Mass Mediastinal Delaney Wade M.D. [facility] Referral ID Status Reason Start Date Expiration Date Visits Re quested Visits Authorized [id number] Closed 08/27/2022 08/27/2023 1 1 Encounter Details Date Type Department Care Team (Late st Contact Info) Description 10/15/2022 11:00 AM CLINICAL DENTAL TECHNICIAN Telemedicine Division of Thoracic Surgery in [place], [place] [address] [place] [phone] Abril Nash P.A.-C. [address] [place] [address] Mass Mediastinal Social History Tobacco Use Types [...] often do you attend chur ch or denominational services? Never 06/04/2022 Do you [...] hard 06/04/2022 [facility] of Occupat ional Health [...] Master's degree (e.g., MA, MS, Milly, MEd, SOLAR INSTALLATION CREW SUPERVISOR, MADELYN) 06/04/2022 Sex and Gender Information [...] it was necessary. Postoperative visit no charge. ICAL DENTAL TECHNICIAN documented in this encounter Plan of Treatment Upcoming Encounters Date Type Department Care Team (Late st Contact Info) Description 11/11/2023 10:40 AM CDT Appointment Department of Laboratory Medicine and Pathology, [facility] in [place], [place] [address] [place] [phone] Radha Keen APRN, Sandip.NYesikaP., M.S.N. [address] [place] [phone] 11/11/2023 11:15 AM CDT Appointment Department of Radiology, [facility] in [place], [place] [address] [place] [phone] Radha Keen APRN, AngelaNYesikaP., M.S.N. [address] [place] [phone] 11/11/2023 1:00 PM CDT Office Visit Division of Thoracic Surgery in [place], [place] [address] [place] [phone] Radha Keen APRN, C.NYesikaPYesika, M.S.N. [address] [place] [address] Scheduled Referrals Name Type Priority Associated Diagnoses [...] mildly increased in size. Abril Nash P.A.-C. [facility] PROCEDU RES * Creatinine with Estimated GFR (05/02/2023 9:09 AM CDT) Creatinine 0.79 0.59 - 1.04 mg/dL 05/02/2023 10:02 AM CDT DTL Estimated GFR (eGFR) 80 >=60 mL/min/BSA 05/02/2023 10:02 AM CDT DTL Comment: Estimated GFR calculated using the 2020 CKD_EPI creatinine equation. Blood (Blood, Venous) 05/02/2023 9:09 AM CDT 05/02/2023 9:44 AM CDT Abril Nash P.A.-C. LAB BLOOD ADD- ON [facility] 200 [place] [address], [facility] DTL [facility] [address] [place] [address] documented in this encounter Visit Diagnoses Diagnosis Mass Mediastinal Mass Mediastinal documented in this encounter Care Teams Cafe Team Member Relationship Specialty Start Date End Date Elsewhere, Pcp PCP - General Family Medicine 01/03/18 documented as of this encounter
--- NOTE | 2023-10-02 22:29 | ED.NURSE ---
Patient seen by nursing in triage today. She had a PICC line pulled. There was a tegaderm with a small gauze place underneath that was saturated with a small pool of blood. During the hour duration the patient was here, the size of the blood pool remained the same. Patient was receiving daily Lovenox injections while in the hospital, but this will be discontinued as she is now home. Dressing was removed, cleansed area with normal saline, applied vaseline gauze to the area, wrapped with rolled gauze, and then applied Coban to secure in place with slight pressure. Educated patient to return to the ER if this soaks through again although appeared unlikely based on assessment today. She only lives 5 minutes away.
== END 2023-10-02 22:35 | disposition home or self-care (01) ==
PROVIDERS: Emergency Provider Emergency Medicine; PCP Family Medicine
DX: Z48.89 Encounter for other specified surgical aftercare (principal)
CPT/HCPCS: 99281

== ENCOUNTER 2023-10-23 20:53 | Emergency (ER) | payer MEDICARE, SELFPAY ==
[2023-10-23 21:03] VITALS: BP 180/100; PULSE 89; RESP 24; TEMP 36.6; O2SAT 96; BMI 21.3
--- NOTE | 2023-10-23 21:50 | ED_ITS ---
HPI - General Adult General Chief complaint: Unspecified Complaint, Adult Stated complaint: Possible infection on R arm Time Seen by Provider: 10/23/23 21:09 History of Present Illness HPI narrative: This 73-year-old female comes in with concern about an infection starting at an IV site that was discontinued about 5 days ago. She has some bruising in her right arm where the IV was placed and now has developed some erythema with tenderness and warmth just superior to that. 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 She is receiving IVIG and is on 1 tablet of Bactrim daily for the rest of her life. She does not report any fevers. Related Data Home Medications Medication Instructions Recorded Confirmed acetaminophen 500 mg tablet 1,000 mg PO Q6H PRN 03/14/22 10/08/23 ascorbic acid (vitamin C) 1,000 mg 1 g PO DAILY 03/14/22 10/08/23 tablet cholecalciferol (vitamin D3) 50 2,000 unit PO DAILY 03/14/22 10/08/23 mcg (2,000 unit) capsule cyanocobalamin (vitamin B-12) 1,000 mcg PO QWEEK 03/14/22 10/08/23 1,000 mcg tablet multivitamin with minerals-ferrous 1 tab PO DAILY 03/14/22 10/08/23 sulfate 4.5 mg iron tablet (One Daily Multivitamins with Minerals) estradiol 0.5 mg tablet 0.5 mg PO DAILY 09/18/23 10/08/23 glucosamine-chondroitin 500 mg-400 2 tab PO DAILY 09/18/23 10/08/23 mg tablet (Cosamin DS) omeprazole 20 mg capsule,delayed 20 mg PO DAILY 09/18/23 10/08/23 release Previous Rx's Medication Instructions Recorded iron,carbonyl 65 mg-vitamin C 125 1 tab PO QHS #90 tabs 05/08/23 mg tablet,delayed release (Vitron-C) Lactobacillus acidophilus 0.5 mg 1,000 mmu cells PO TIDWM #90 tabs 09/08/23 (100 million cell) tablet Magic Mouthwash 10 ml PO QID PRN oral ulcer #120 10/08/23 (Lidocaine/Benadryl/Maalox) 120 mL mL suspension Allergies Allergy/AdvReac Type Severity Reaction Status Date / Time penicillin V Allergy Mild Rash Verified 10/08/23 13:59 Sulfa (Sulfonamide Allergy Mild Verified 10/08/23 13:59 Antibiotics) Review of Systems Status of ROS: Reports: 10 or more systems reviewed and unremarkable except as noted in History and below Narrative: Constitutional: No fevers, no weight gain or loss. Eyes: No discharge. No vision changes. HENT: No congestion, no sore throat, no ear pain. Cardiovascular: No chest pain, no palpitations. Respiratory: No shortness of breath, no wheezes, no cough. Gastrointestinal: No abdominal pain, no vomiting, no diarrhea. Genitourinary: No dysuria, no hematuria. Musculoskeletal: Normal range of motion. Skin: No rashes, no pruritis. Area of redness around IV site as described above. Neurological: No dizziness, weakness, sensory change, speech change. Endo/Heme/Allergies: No bruising or bleeding. No polydipsia. Pysch: no suicidality, no anxiety, no insomnia. All other systems reviewed and are negative. 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 - Herpesviral infection, unspecified (ICD-10) GERD (gastroesophageal reflux disease) ?K21.9 - Gastro-esophageal reflux disease without esophagitis (ICD-10) MRSA nasal colonization ?Z22.322 - Carrier or suspected carrier of Methicillin resistant Staphylococcus aureus (ICD-10) Good syndrome ?D83.8 - Other common variable immunodeficiencies (ICD-10) Oral ulcer ?K12.1 - Other forms of stomatitis (ICD-10) Pneumonia (~07/2023) ?J18.9 - Pneumonia, unspecified organism (ICD-10) Hypoxia ?R09.02 - Hypoxemia (ICD-10) Physical deconditioning ?R53.81 - Other malaise (ICD-10) Anxiety ?F41.9 - Anxiety disorder, unspecified (ICD-10) Gastric ulcer (04/04/23) ?K25.9 - Gastric ulcer, unspecified as acute or chronic, without hemorrhage or perforation (ICD-10) Anemia, iron deficiency ?D50.9 - Iron deficiency anemia, unspecified (ICD-10) Constipation ?K59.00 - Constipation, unspecified (ICD-10) Depression (11/25/11) ?F32.A - Depression, unspecified (ICD-10) COVID-19 ?U07.1 - COVID-19 (ICD-10) 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-10) Hot flashes due to menopause ?N95.1 - Menopausal and female climacteric states (ICD-10) Osteopenia (2018) ?M85.80 - Other specified disorders of bone density and structure, unspecified site (ICD-10) Surgical History (Updated 10/23/23 @ 12:05 by Angeli Lewis) History of phacoemulsification of cataract of both eyes with intraocular lens implantation ?Z98.41 - Cataract extraction status, right eye (ICD-10) ?Z98.42 - Cataract extraction status, left eye (ICD-10) ?Z96.1 - Presence of intraocular lens (ICD-10) 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) ?Z90.89 - Acquired absence of other organs (ICD-10) History of total abdominal hysterectomy and bilateral salpingo-oophorectomy (2002) ?Z90.710 - Acquired absence of both cervix and uterus (ICD-10) ?Z90.722 - Acquired absence of ovaries, bilateral (ICD-10) ?Z90.79 - Acquired absence of other genital organ(s) (ICD-10) History of surgery on wrist (09/12/17) ?Z98.890 - Other specified postprocedural states (ICD-10) History of colonoscopy (2017) ?Z98.890 - Other specified postprocedural states (ICD-10) Family History (Updated 10/23/23 @ 11:42 by Angeli Lewis) Father Bladder cancer, Onset Age: 60 High blood pressure Paternal Grandfather Coronary artery disease Mother Ovarian cancer, Onset Age: 65 Parkinson's disease Sister Thyroid disease Social History Narrative: exercises regularly- 3-4/week gym, weights, cardio non-smoker rarely consumes alcohol lives in [place] lives with 25 yo adopted Aspergers son Her sister Rea Purcell from [place] is healthcare power of deputy attorney general. Code status is full What is your current living situation?: I presently have a place to live Problems where you live: no known problems Problems where you live details: No known problems In the past 12 months, utilities in danger of being shut off: no In past 12 months, lack of transportation kept you from medical appts, meetings, work, or getting things needed for daily living: no In the past 12 mos, have been you worried that your food would run out before you had money to buy more?: never true In the past 12 mos, the food you bought just didn't last and you didn't have money to buy more?: never true Highest level of school completed/degree received: Master's degree Smoking Status: Never smoker Do you use any of these nicotine containing products: None Second hand tobacco smoke exposure: No How often do you have a drink containing alcohol: never How often do you have six or more drinks on one occasion: Never AUDIT-C Alcohol total score: 0 Non-prescribed substance use: denies use Caffeine: Yes (Occasional coffee) How often does anyone, including family, friends and others, physically hurt you : never How often does anyone, including family, friends and others, insult or talk down to you: never How often does anyone, including family, friends and others, threaten you with harm: never How often does anyone, including family, friends and others, scream or curse at you: never Little interest or pleasure in doing things: not at all Feeling down, depressed, or hopeless: not at all service: No Exam 2 Narrative: Exam Narrative: Constitutional: Well-developed, well-nourished, no acute distress. HEENT: Normocephalic, atraumatic. Neck: Normal range of motion. Nontender. Supple. Heart: Intact distal pulses. Lungs: No chest discomfort. No wheezes, rhonchi, or rales. Abdomen: Nontender. Back: Normal range of motion. Extremities: Normal range of motion. Right forearm has some bruising where the IV was placed and had been removed about 5 days ago. There is some erythema with increased warmth and tenderness just proximal to this area and measuring about 3 x 4 cm. Skin: Intact. No rash. Warm. No erythema or pallor. Neurologic: No altered sensation. No weakness. Alert and oriented. Psychiatric: No suicidality. No anxiety or depression. No insomnia. Nursing notes and vitals signs are reviewed. Const: Vital Signs, click to edit/add: Vital Signs - 24 hr 10/23/23 21:03 Temperature 97.9 F Pulse Rate [Pulse Oximeter] 89 Respiratory Rate 24 Blood Pressure [Ri ght Upper Arm] 180/100 H Pulse Oximetry 96 Oxygen Delivery Me thod Room Air Course Vital Signs Vital signs: Initial Vital Signs Temperature 97.9 F 10/23/23 21:03 Temperature Source Temporal Artery Scan 10/23/23 21:03 Pulse Rate 89 10/23/23 21:03 Respiratory Rate 24 10/23/23 21:03 Blood Pressure 180/100 H 10/23/23 21:03 Blood Pressure Mean 126 H 10/23/23 21:03 Blood Pressure Position Sitting 10/23/23 21:03 Pulse Oximetry 96 10/23/23 21:03 Oxygen Delivery Method Room Air 10/23/23 21:03 Vital Signs Temperature 97.9 F 10/23/23 21:03 Pulse Rate 89 10/23/23 21:03 Respiratory Rate 24 10/23/23 21:03 Blood Pressure 180/100 H 10/23/23 21:03 Pulse Oximetry 96 10/23/23 21:03 Oxygen Delivery Method Room Air 10/23/23 21:03 Temperature 97.9 F 10/23/23 21:03 Pulse Rate 89 10/23/23 21:03 Respiratory Rate 24 10/23/23 21:03 Blood Pressure 180/100 H 10/23/23 21:03 Pulse Oximetry 96 10/23/23 21:03 Oxygen Delivery Method Room Air 10/23/23 21:03 Medical Decision Making [facility] Narrative Medical decision making narrative: 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 She is seeing specialists and receiving medications to boost her immune system. She is taking Bactrim daily for life to prevent pneumonia. She comes in with some erythema in her right forearm that is suspicious for a cellulitis related to recent IV site. The patient has normal vital signs and otherwise feels normal. She is currently taking Bactrim as was already stated. I did provide prescription for Keflex and advised her regarding signs and symptoms that would indicate a need for return and re-evaluation if not improving or worsening. Discharge Plan Discharge Prescriptions: No Action Magic Mouthwash (Lidocaine/Benadryl/Maalox) 120 mL suspension 10 ml PO QID PRN (Reason: oral ulcer) Qty: 120 2RF Rx Instructions: Lidocaine Viscous 2 % mucosal solution 40 mL; Maalox 200 mg-200 mg-20 mg/5 mL oral suspension 40 mL; Benadryl 12.5 mg/5 mL oral elixir 40 mL; Per 120 mL SWISH AND SPIT. MAY COMPOUND IF FIRST PRODUCT IS NOT AVAILABLE. cholecalciferol (vitamin D3) 50 mcg (2,000 unit) capsule 2,000 unit PO DAILY acetaminophen 500 mg tablet 1,000 mg PO Q6H PRN Rx Instructions: NO MORE THAN 4000 MG/DAY cyanocobalamin (vitamin B-12) 1,000 mcg tablet 1,000 mcg PO QWEEK ascorbic acid (vitamin C) 1,000 mg tablet 1 g PO DAILY One Daily Multi-Vit w-Mineral 4.5 mg iron tablet 1 tab PO DAILY Vitron-C 65 mg iron- 125 mg tablet,delayed release (DR/EC) 1 tab PO QHS Qty: 90 0RF Lactobacillus acidophilus 0.5 mg (100 million cell) Tablet 1,000 mmu cells PO TIDWM Qty: 90 0RF glucosamine-chondroitin [Cosamin DS] 500-400 mg tablet 2 tab PO DAILY estradiol 0.5 mg tablet 0.5 mg PO DAILY omeprazole 20 mg capsule,delayed release(DR/EC) 20 mg PO DAILY Follow Up/Referrals: Aury Estevez MD [Primary Care Provider] -
[2023-10-23 22:02] VITALS: BP 168/85; PULSE 78; RESP 24; TEMP 36.6; O2SAT 96
[2023-10-23 22:03] VITALS: BP 168/85; PULSE 78; RESP 24; TEMP 36.6
== END 2023-10-23 22:03 | disposition home or self-care (01) ==
PROVIDERS: Emergency Provider Emergency Medicine Emergency Medical Services; PCP Family Medicine
DX: L53.9 Erythematous condition, unspecified (principal)
CPT/HCPCS: 99283; 99284

== ENCOUNTER 2023-10-27 22:29 | Emergency (ER) | payer MEDICARE, SELFPAY ==
[2023-10-27 22:45] VITALS: BP 154/79; PULSE 77; RESP 20; TEMP 36.1; O2SAT 98
--- NOTE | 2023-10-28 00:20 | ED.GENADULT ---
HPI - General Adult General Chief complaint: Allergic Reaction Stated complaint: Rash Time Seen by Provider: 10/28/23 00:02 Source: patient Mode of arrival: ambulatory Limitations: no limitations History of Present Illness HPI narrative: 73-year-old female with an unfortunate few months of medical complications. She has a recent diagnosis of good syndrome. She had COVID back in July and has been hospitalized 3 times. It sounds as though she had a Legionella pneumonia. She was also evaluated here in the emergency department 5 days ago for swelling of the forearm related to an IV site. Ultimately, she was started on Keflex. Today she noticed are faint rash starting on the forearm. It does not itch. She has not notice it in other areas. No fevers, no swelling of the airway. No swelling of the lips, tongue, itchiness of the throat, diarrhea or severe weakness. No prior history of similar reaction to Keflex but she has had documented penicillin allergy with a rash as well. She still notices some tenderness and slight swelling over the area of IV start on the forearm where the reaction originally started. No other new medications in the last week, she does bring her discharge paperwork from her most recent hospitalization as well. Past medical history complicated as of recent but otherwise in good overall health. Medications reviewed. Accurate as listed with the exception of the fact that she has also been started on Bactrim and Valcyte clear in relation to her suppressed immune system. She is also currently on IVIG treatment. Recent Keflex as stated above. ROS notable for the rash as stated above and the forearm symptoms, otherwise denies times 12 systems. Related Data Home Medications Medication Instructions Recorded Confirmed acetaminophen 500 mg tablet 1,000 mg PO Q6H PRN 03/14/22 10/08/23 ascorbic acid (vitamin C) 1,000 mg 1 g PO DAILY 03/14/22 10/08/23 tablet cholecalciferol (vitamin D3) 50 2,000 unit PO DAILY 03/14/22 10/08/23 mcg (2,000 unit) capsule cyanocobalamin (vitamin B-12) 1,000 mcg PO QWEEK 03/14/22 10/08/23 1,000 mcg tablet multivitamin with minerals-ferrous 1 tab PO DAILY 03/14/22 10/08/23 sulfate 4.5 mg iron tablet (One Daily Multivitamins with Minerals) estradiol 0.5 mg tablet 0.5 mg PO DAILY 09/18/23 10/08/23 glucosamine-chondroitin 500 mg-400 2 tab PO DAILY 09/18/23 10/08/23 mg tablet (Cosamin DS) omeprazole 20 mg capsule,delayed 20 mg PO DAILY 09/18/23 10/08/23 release Previous Rx's Medication Instructions Recorded iron,carbonyl 65 mg-vitamin C 125 1 tab PO QHS #90 tabs 05/08/23 mg tablet,delayed release (Vitron-C) Lactobacillus acidophilus 0.5 mg 1,000 mmu cells PO TIDWM #90 tabs 09/08/23 (100 million cell) tablet Magic Mouthwash 10 ml PO QID PRN oral ulcer #120 10/08/23 (Lidocaine/Benadryl/Maalox) 120 mL mL suspension Allergies Allergy/AdvReac Type Severity Reaction Status Date / Time penicillin V Allergy Mild Rash Verified 10/28/23 00:14 Sulfa (Sulfonamide Allergy Mild Verified 10/28/23 00:14 Antibiotics) cephalexin AdvReac Intermediate Rash Verified 10/28/23 00:14 [facility] Medical History Good syndrome ?D83.8 - Other common variable immunodeficiencies (ICD-10) 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.9 - Herpesviral infection, unspecified (ICD-10) GERD (gastroesophageal reflux disease) ?K21.9 - Gastro-esophageal reflux disease without esophagitis (ICD-10) MRSA nasal colonization ?Z22.322 - Carrier or suspected carrier of Methicillin resistant Staphylococcus aureus (ICD-10) Good syndrome ?D83.8 - Other common variable immunodeficiencies (ICD-10) Oral ulcer ?K12.1 - Other forms of stomatitis (ICD-10) Pneumonia (~07/2023) ?J18.9 - Pneumonia, unspecified organism (ICD-10) Hypoxia ?R09.02 - Hypoxemia (ICD-10) Physical deconditioning ?R53.81 - Other malaise (ICD-10) Anxiety ?F41.9 - Anxiety disorder, unspecified (ICD-10) COVID-19 ?U07.1 - COVID-19 (ICD-10) Gastric ulcer (04/04/23) ?K25.9 - Gastric ulcer, unspecified as acute or chronic, without hemorrhage or perforation (ICD-10) Anemia, iron deficiency ?D50.9 - Iron deficiency anemia, unspecified (ICD-10) Constipation ?K59.00 - Constipation, unspecified (ICD-10) 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-10) Hot flashes due to menopause ?N95.1 - Menopausal and female climacteric states (ICD-10) Osteopenia (2018) ?M85.80 - Other specified disorders of bone density and structure, unspecified site (ICD-10) Depression (07/20/11) ?F32.A - Depression, unspecified (ICD-10) Surgical History History of phacoemulsification of cataract of both eyes with intraocular lens implantation ?Z98.41 - Cataract extraction status, right eye (ICD-10) ?Z98.42 - Cataract extraction status, left eye (ICD-10) ?Z96.1 - Presence of intraocular lens (ICD-10) 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) ?Z90.89 - Acquired absence of other organs (ICD-10) History of total abdominal hysterectomy and bilateral salpingo-oophorectomy (2002) ?Z90.710 - Acquired absence of both cervix and uterus (ICD-10) ?Z90.722 - Acquired absence of ovaries, bilateral (ICD-10) ?Z90.79 - Acquired absence of other genital organ(s) (ICD-10) History of surgery on wrist (09/12/17) ?Z98.890 - Other specified postprocedural states (ICD-10) History of colonoscopy (2017) ?Z98.890 - Other specified postprocedural states (ICD-10) Family History Father Bladder cancer, Onset Age: 60 High blood pressure Paternal Grandfather Coronary artery disease Mother Ovarian cancer, Onset Age: 65 Parkinson's disease Sister Thyroid disease Social History Narrative: exercises regularly- 3-4/week gym, weights, cardio non-smoker rarely consumes alcohol lives [place] lives with 25 yo adopted Aspergers son Her sister Rea Purcell from [place] is healthcare power of corporate associate attorney. Code status is full What is your current living situation?: I presently have a place to live Problems where you live: no known problems Problems where you live details: No known problems In the past 12 months, utilities in danger of being shut off: no In past 12 months, lack of transportation kept you from medical appts, meetings, work, or getting things needed for daily living: no In the past 12 mos, have been you worried that your food would run out before you had money to buy more?: never true In the past 12 mos, the food you bought just didn't last and you didn't have money to buy more?: never true Highest level of school completed/degree received: Master's degree Smoking Status: Never smoker Do you use any of these nicotine containing products: None Second hand tobacco smoke exposure: No How often do you have a drink containing alcohol: never How often do you have six or more drinks on one occasion: Never AUDIT-C Alcohol total score: 0 Non-prescribed substance use: denies use Caffeine: Yes (Occasional coffee) How often does anyone, including family, friends and others, physically hurt you: never How often does anyone, including family, friends and others, insult or talk down to you: never How often does anyone, including family, friends and others, threaten you with harm: never How often does anyone, including family, friends and others, scream or curse at you: never Little interest or pleasure in doing things: not at all Feeling down, depressed, or hopeless: not at all service: No Exam Const: Vital Signs, click to edit/add: Vital Signs - 24 hr 10/27/23 22:45 Temperature 97.0 F L Pulse Rate [Right Pulse Oximeter] 77 Respiratory Rate 20 Blood Pressure [Le ft Upper Arm] 154/79 H Pulse Oximetry 98 Oxygen Delivery Me thod Room Air Documenting provider has reviewed patient's vital signs: yes Common normals: no apparent distress General appearance: cooperative, comfortable and well kempt Other: Excellent historian. HENMT: Common normals: normocephalic Head and scalp: normocephalic Face and sinus: normal facial exam Mouth: oral and palatal mucosa normal, lip normal and tongue normal Throat: posterior oropharynx normal and uvula midline Eye: Common normals: conjunctivae normal General eye: normal appearance of both eyes Conjunctiva: conjunctiva(e) normal Neck & C-Spine: Common normals: full ROM and no lymphadenopathy Resp: Common normals: normal respiratory effort, no use of accessory muscles and clear to auscultation bilaterally Effort & inspection: able to speak in complete sentences Auscultation: clear to auscultation bilaterally Cardio: Common normals: regular rate, regular rhythm, S1 normal heart sound, S2 normal heart sound and no murmurs Rate: regular rate Rhythm: regular rhythm Heart sounds: S1 normal and S2 normal Extremity: Other: 3 cm area of bruising to the right forearm consistent with hematoma from previous IV start. It is mildly swollen and tender to touch with what seems to be more of a hematoma rather than signs of an abscess. It is not fluctuant. It is not warm to the touch or significantly reddened, just bruised. This is compared to the description from last Saturday. Psych: Common normals: thought process normal Appearance: well kempt Attitude: engaged Activity/motor behavior: appropriate eye contact Thought process: normal thought process Insight: insight good Judgement: judgment good Skin: Narrative: Faint, small macular rash covering about 1% total surface area of the right arm in area of question. She had noticed but I do that it is diffusely all across her abdomen, under the breast area and on the chest. It is not on the neck, face, palms. Course Course ED Course: Counseled patient on findings. Most likely consistent with a drug rash related to her Keflex. This is a very typical type of reaction. She did have a 10% chance of this because of her penicillin allergy. Counseled patient to stop the Keflex. But there are no signs of persistent cellulitis. The hematoma and inflammation will need another week or 2 to heal. More antibiotics is more likely to cause harm than help. I do not see any signs of an anaphylactic or type 1 allergic reaction. I do not recommend antihistamine. I think the prednisone will also be more harmful than helpful. Counseled patient that she is not need to do any topical treatment unless she is having itch. She is welcome to apply 1% hydrocortisone cream if needed. The rash will continue to evolve even with stopping the Keflex for a few days. It may take a week or 2 even to completely go away. If there are any signs of swelling of the lips, airway, mouth, itchiness of the throat, difficulty breathing, severe diarrhea or other weakness, she should come back to the emergency department. Counseled on Benadryl right away if she notices any of those symptoms. She verbalizes understanding and agreement. Vital Signs Vital signs: Initial Vital Signs Temperature 97.0 F L 10/27/23 22:45 Temperature Source Temporal Artery Scan 10/27/23 22:45 Pulse Rate 77 10/27/23 22:45 Pulse Rhythm Regular 10/27/23 22:45 Respiratory Rate 20 10/27/23 22:45 Blood Pressure 154/79 H 10/27/23 22:45 Blood Pressure Mean 104 10/27/23 22:45 Blood Pressure Position Semi-Fowlers 10/27/23 22:45 Pulse Oximetry 98 10/27/23 22:45 Oxygen Delivery Method Room Air 10/27/23 22:45 Vital Signs Temperature 97.0 F L 10/27/23 22:45 Pulse Rate 77 10/27/23 22:45 Respiratory Rate 20 10/27/23 22:45 Blood Pressure 154/79 H 10/27/23 22:45 Pulse Oximetry 98 10/27/23 22:45 Oxygen Delivery Method Room Air 10/27/23 22:45 Temperature 97.0 F L 10/27/23 22:45 Pulse Rate 77 10/27/23 22:45 Respiratory Rate 20 10/27/23 22:45 Blood Pressure 154/79 H 10/27/23 22:45 Pulse Oximetry 98 10/27/23 22:45 Oxygen Delivery Method Room Air 10/27/23 22:45 Discharge Plan Discharge Clinical Impression: Adverse drug reaction Patient Disposition: Home, Self-Care Condition: Stable Instructions: Anaphylaxis (ED) Additional Instructions: As we discussed, there are no signs of anaphylactic type allergic reaction. Unfortunately, you do appear to have signs of a milder type of allergy to most likely medication. This is most likely related to Keflex, the antibiotic that you were prescribed last week. Thankfully, there are no signs of persistent bacterial infection in the inflamed area on her forearm. You do not need to continue taking more antibiotics for this. Stop the Keflex at this time. You will continue to get new spots for few days, even up to a week. There is no need to apply treatment to these rash areas. If it is very itchy in you on symptomatic treatment, you may use [id number] hydrocortisone cream or ointment. Antihistamines will not stop the reaction but they may help with itchiness. You do not need to take these unless you are noticing itch. It is incredibly rare for this to turn into a type 1 allergic reaction, which would be consistent with anaphylaxis. If you start noticing severe weakness, severe shortness of breath, swelling of the lips, tongue, mouth or throat, you should come into the emergency department right away. Try to take some Benadryl if this happens if you can. If the rash is not improving in a week, seek re-evaluation. You may continue all of your other medications as prescribed. Activity Level: No Restrictions Discharge Diet: Regular Prescriptions: No Action Magic Mouthwash (Lidocaine/Benadryl/Maalox) 120 mL suspension 10 ml PO QID PRN (Reason: oral ulcer) Qty: 120 2RF Rx Instructions: Lidocaine Viscous 2 % mucosal solution 40 mL; Maalox 200 mg-200 mg-20 mg/5 mL oral suspension 40 mL; Benadryl 12.5 mg/5 mL oral elixir 40 mL; Per 120 mL SWISH AND SPIT. MAY COMPOUND IF FIRST PRODUCT IS NOT AVAILABLE. cholecalciferol (vitamin D3) 50 mcg (2,000 unit) capsule 2,000 unit PO DAILY acetaminophen 500 mg tablet 1,000 mg PO Q6H PRN Rx Instructions: NO MORE THAN 4000 MG/DAY cyanocobalamin (vitamin B-12) 1,000 mcg tablet 1,000 mcg PO QWEEK ascorbic acid (vitamin C) 1,000 mg tablet 1 g PO DAILY One Daily Multi-Vit w-Mineral 4.5 mg iron tablet 1 tab PO DAILY Vitron-C 65 mg iron- 125 mg tablet,delayed release (DR/EC) 1 tab PO QHS Qty: 90 0RF Lactobacillus acidophilus 0.5 mg (100 million cell) Tablet 1,000 mmu cells PO TIDWM Qty: 90 0RF glucosamine-chondroitin [Cosamin DS] 500-400 mg tablet 2 tab PO DAILY estradiol 0.5 mg tablet 0.5 mg PO DAILY omeprazole 20 mg capsule,delayed release(DR/EC) 20 mg PO DAILY Follow Up/Referrals: Aury Estevez MD [Primary Care Provider] - Stand Alone Forms: [employer] Info Instructions
== END 2023-10-28 00:28 | disposition home or self-care (01) ==
LOC: ED 10-28 00:22
PROVIDERS: Emergency Provider Family Medicine; PCP Family Medicine
DX: R21 Rash and other nonspecific skin eruption (principal); T36.1X5A Adverse effect of cephalosporins and other beta-lactam antibiotics, initial encounter
CPT/HCPCS: 99283

== ENCOUNTER 2024-01-23 13:45 | Outpatient (RCR) | payer MEDICARE, SELFPAY ==
--- NOTE | 2023-11-14 15:46 | PT.OPEX ---
PT [facility] Outpatient Eval PT [facility] Outpatient Eval Start: 11/05/23 09:04 Freq: Status: Active Protocol: Document 11/14/23 07:13 MLS (Rec: 11/14/23 15:44 MLS [id number]) E-signed By Janice Manzano DPT Physical Therapy Outpatient Evaluation Insurance Information Recert Due Date 02/11/24 Insurance Name Medicare B,[place] Medical Diagnosis R53.81 Other malaise J18.9 Pneumonia, unspecified organism Treating Diagnosis Deconditioning Referring MD Dr. Estevez Subjective Subjective Patient is a 73 year old female who presents to physical therapy with signs and symptoms consistent with deconditioning. She states that she got covid for the first time on Aug 03. She states that she had a fever and cough and thought she was over it. She went to her physician the next week and started an antibiotic due to possible pneumonia. She states that it didn't get better so she went to the emergency room, where they ran some tests and they put her in the hospital and antibiotics for 4 days. She then went home and got sick again with the same symptoms of coughing and not being able to breathe. She reports that she has been to the ER 7-8 times, with oxygen dropping to 81%. She was put in the hospital a second time for about 5 days and then went to [facility] in [place], where she was diagnosed with covid-pneumonia. She was in an isolation room for ten days there and was treated with dexamethasone. About 5-6 days later, she had a fever, and difficulty breathing so she went [facility], where she was admitted. 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 Her immunoglobulin was down to 109 vs 750-1500. She got out of [facility] on . She states that she was negative for covid on October 31. She was given her fist infusion of IV IG yesterday at a clinic, which she will have to get every month for the rest of her life. She states that she got very deconditioned with being in multiple hospitals over the past 3 months. She states that prior to this, she was at [employer] multiple times per week. She reports that her sleeping has been better since she has been out of the hospital, between 6-8 hours per night. She reports that she had a CT scan , which shows that the covid is improving in her lungs. She will have a CT every 6 months for 2 years and once a year for 5 years. She reports that she does have a treadmill . She reports that she has lost weight, about 10 pounds. Aggravating factors include: any time of exertion, walking fast, stress. 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 Patient would like to return to her exercise routine through physical therapy sessions. Pain Comments Today: 1-2/10 on a 0-10 pain scale with 10 = extreme pain Around rib cage from coughing Current Work Status Retired Objective Other/Pertinent Objective GAIT/FUNCTIONAL MOBILITY Walks without an assistive device 30 second sts: 10 5 time sts: 15 sec Age Bracket Time (sec) 60-69 yo 11.4 / 70-79 yo 12.6 / 80- 89 yo 14.8 TUG 10 sec - 13.5 seconds is cut off for norm 60 ? 69 years 8.1 (7.1 ? 9.0) / 70 ? 79 years 9.2 (8.2 ? 10.2) / 80 ? 99 years 11.3 (10.0 ? 12.7) LLE MMT: Hip flexion: R 4-/5 L 4-/5 Hip abduction: R 4-/5 L 4-/5 Hip extension: R 4-/5 L 4-/5 Knee flexion: R 4/5 L 4/5 Knee extension: R 4/5 L 4/5 TX: Access Code: [email or web address] URL: [email or web address] Date: 11/14/2023 Prepared by: Janice Manzano Exercises - Standing Hip Abduction with Counter Support - 1 x daily - 7 x weekly - 3 sets - 10 reps - Standing March with Counter Support - 1 x daily - 7 x weekly - 3 sets - 10 reps - Standing Hip Extension with Counter Support - 1 x daily - 7 x weekly - 3 sets - 10 reps - Heel Raises with Counter Support - 1 x daily - 7 x weekly - 3 sets - 10 reps - Mini Squat with Counter Support - 1 x daily - 7 x weekly - 3 sets - 10 reps Functional Test Performed & Score 6 min walk test - attempted Able to walk for 4 min - 4 250 foot laps before breathing got quite heavy, started coughing and oxygen dropped to 94% Assessment Assessment/Impression Pt is a 73 year old female who presents with concerns of deconditioning. Patient also has notable objective findings including decreased endurance and decreased strength which are also likely contributing to the problem. Patient is a good candidate for skilled therapy to target deficits described above. Skilled PT intervention is necessary for use of therapeutic exercise manual therapy, neuromuscular re-education, gait training, and therapeutic activity. Functional impairments include difficulty with: standing, walking, ADLS and exercising. See appropriate sections of PT eval for complete list of goals and POC. D/C plan and criteria is for pt to achieve the goals as listed below or until max rehab potential is met. Pt was agreeable with plan of care and goals established. Primary Functional Limitations standing walking exercising ADLs Plan of Care Rehabilitation Potential Good Physical Therapy Goals Within 10-12 weeks: 1.Pt will demonstrate independence in performance of home exercise program with the use of video and/or handouts in order to optimize functional mobility and reduce risk for re-injury. 2.Pt will demonstrate consistent HEP compliance to ensure progress in reaching established goals during course of care. 3.Patient will be able to perform all activities without fall incidence in order to improve functional mobility at home, work and during functional leisure activities. 4.Patient will be able to walk up to one mile without pain. 5.Patient will be able to perform the TUG in 8-9 seconds . 6.Pt will be able to ascend/ descend 1 flight of stairs in order to perform ADLs pain free. 7.Pt will be able to complete the 6 min walk test without stopping secondary to breathlessness to demonstrate functional improvement and progress towards goals Coordination/Communication With Referral Source Treatment Plan/Direct Interventions Joint Mobilization,Manual Therapy,Neuromuscular Re-ed, Therapeutic Activities, Therapeutic Exercises Patient Will Be Discharged From Therapy Independently Progressing Evaluation Billing Untimed Code Treatment Minutes 30 Complexity Low Certification Information Physician Comment/Change : Physician NPI Number #
== END 2024-02-25 09:47 | disposition home or self-care (01) ==
PROVIDERS: PCP Family Medicine; Visit Provider Family Medicine
DX: R53.81 Other malaise (principal); J18.9 Pneumonia, unspecified organism; Z51.89 Encounter for other specified aftercare
CPT/HCPCS: 97110; 97161

== ENCOUNTER 2024-04-06 10:28 | Outpatient (CLI) | payer MEDICARE, SELFPAY ==
--- OUTSIDE RECORDS SUMMARY | 2024-04-10 02:22 | XMS_ITS | Clinical Summary ---
Author Organization [facility] Address [address] [place] [address] Care Team Providers Care Contact Center Analyst Name Role Phone Elsewhere, Pcp Primary Care Provider Unavailabl e Source Comments Patient records contain information from all sites at [facility]. For routine questions regarding patient records, call [phone] during business hours, M-F 8:00 AM - 5:00 PM Central Time. Record requests for emergency care only can be directed to [phone] at any time.[facility] Allergies Active Allergy Reactions Criticality Noted Date Comments Cephalexin Rash High 10/28/2023 ED visit 10/28/23 Penicillin V Rash Low 10/28/2023 Penicillins Rash 09/05/2010 Sulfa (Sulfonamide Antibiotics) Rash Low 08/26 Medications Medication Sig Dispensed Refills Start Date End Date Status estradioL (ESTRACE) 0.5 mg tablet Take 0.75 mg by mouth daily. 03/14/2022 Active multivitamin-mineral s-lutein (CENTURY MATURE) tablet Take 1 tablet by mouth daily. Active calcium-vitamin D3-vitamin K (VIACTIV) 650 mg-12.5 mcg (500 Unit)-40 mcg tablet,chewable per chewable tablet Chew 1 tablet 2 (two) times a day with meals. Active acetaminophen (TYLENOL) 500 mg tablet Take 1-2 tablets (500-1,000 mg total) by mouth every 6 (six) hours as needed (pain). 08/27/2022 Active omeprazole (PriLOSEC) [address] capsule Take 20 mg by mouth every morning before breakfast. 03/27/2023 Active glucosamine-chondroi tin 500-400 mg per tablet Take 2 tablets by mouth daily. Active docusate sodium 100 mg capsule Take 2 tablets (200 mg total) by mouth 2 (two) times a day as needed for constipation. 10/18/2023 Active valACYclovir (VALTREX) 500 mg tablet Take 1 tablet (500 mg total) by mouth 2 (two) times a day. 180 tablet 10/27/2023 Active sulfamethoxazole-tri methoprim (Bactrim DS) 800-160 mg per tabletIndications:Pr ophylaxis, medical Take 1 tablet by mouth daily Indications: Prophylaxis, medical. 90 tablet 10/19/2023 Active lidocaine viscous (XYLOCAINE) 2 % mucosal solution Apply 15 mL to the mouth or throat 4 (four) times a day after meals and bedtime. Swish and spit, do not swallow. 100 mL 2 10/18/2023 Active zinc sulfate (ZINCATE) 220 (50 mg zinc) capsule Take 220 mg by mouth. Active cholecalciferol (VITAMIN D3) 10 mcg (400 Unit) tablet Take 2,000 Units by mouth. 03/14/2022 Active B complex-vitamin C (SUPERPLEX-T) per tablet Take 1 tablet by mouth daily. Active diphenhydrAMINE-lido lori-antacid (Magic Mouthwash) 1:1:1 Take 10 mL by mouth. 10/08/2023 Active sulfamethoxazole-tri methoprim (Bactrim) 400-80 mg per tablet Take 1 tablet by mouth daily. 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 Other Combined Immunodeficiencies (HCC) (Primary Dx); Hypogammaglobulinemia (HCC) Discharge Disposition: Home or Self Care 04/02/2024 12:26 PM CDT - 04/02/2024 11:59 PM CDT Hospital Encounter Department of Laboratory Medicine and Pathology, [facility] in [address] [place] [address] Mehreen Landis M.D. Hypogammaglobulinemia (HCC); Other Combined Immunodeficiencies (HCC) Discharge Disposition: Home or Self Care 03/23/2024 Clinical Communication Division of Allergic Diseases in [place], [place] [address] [place] [phone] Brayan Swain M.D., M.S. Letter for outside providers and Valtrex 03/05/2024 1:15 PM CDT Infusion Department of Infusion Therapy in [address] [place] [address] Mehreen Landis M.D. Hypogammaglobulinemia (HCC) (Primary Dx); Other Combined Immunodeficiencies (HCC) 03/03/2024 Orders Only Division of Pediatric Allergy & Immunology in [place], [place] [address] [place] [phone] Brayan Swain M.D., M.S. 02/24/2024 3:40 PM CDT - 02/24/2024 11:59 PM CDT [facility] [place] [place] [address] [place] [address] Brayan Swain M.D., M.S. Immunodeficiency (HCC) Discharge Disposition: Home or Self Care 02/24/2024 2:30 PM CDT Office Visit Division of Allergic Diseases in [place], [place] [address] [place] [phone] Brayan Swain M.D., M.S. Need Therapy Hormone Replacement (Primary Dx); Immunodeficiency (HCC) 02/20/2024 11:00 AM CDT Clinical Communication Virtual Review in [place], [place] [address] [place] [address] Previsit Preparation 02/06/2024 1:15 PM CDT Infusion Department of Infusion Therapy in [place], [place] [address] [place] [address] Mehreen Landis M.D. Hypogammaglobulinemia (HCC) (Primary Dx); Other Combined Immunodeficiencies (HCC) Discharge Disposition: Home or Self Care 01/10/2024 1:15 PM CDT Infusion Department of Infusion Therapy in [place], [place] [address] [place] [address] Mehreen Landis M.D. Other Combined Immunodeficiencies (HCC) (Primary Dx); Hypogammaglobulinemia (HCC) Discharge Disposition: Home or Self Care 01/10/2024 12:26 PM CDT - 01/10/2024 11:59 PM CDT Hospital Encounter Department of Laboratory Medicine and Pathology, [facility], in [place], [place] [address] [place] [address] Merheen Landis M.D. Hypogammaglobulinemia (HCC); Other Combined Immunodeficiencies (HCC) Discharge Disposition: Home or Self Care from Last 3 Months Immunizations Name Administration [...] drink = 0.6 oz pur e alcohol) [facility] Utilities Answer Date Recorded In the past 12 months has th e electric, gas, oil, or water company threatened to shut off services in your home? No 11/08/2023 Humiliation, Afraid, Rape, and Kick questionnair e Answer Date Recorded Within the last year, have y ou been afraid of your partner or ex-partner? No 10/12/2023 Within the last year, have y ou been humiliated or emotionally abused in other ways by your partner or ex-partner? No Within the last year, have y ou been kicked, hit, slapped, or otherwise physically hurt by your partner or ex-partner? No 10/12/2023 Within the last year, have y ou been raped or forced to have any kind of sexual activity by your partner or ex-partner? No 10/12/2023 Social Connection and Isolation Panel [NHANES] A nswer Date Recorded In a typical week, how many times do you talk on the phone with family, friends, or neighbors? Three times a week 06/04/2022 How often do you get togethe r with friends or relatives? Patient declined 06/04/2022 How often do you attend [facility] or mosque services? Never 06/04/2022 Do you belong to any clubs o r organizations such as yarsanism groups, unions, fraternal or athletic groups, or [...] and heating? Not very hard 06/04/2022 [facility] - [...] exercise (like a brisk walk)? 7 days 11/08/2023 On average, how many minutes do you engage in exercise at this level? 30 min 11/08/2023 Hunger Vital Sign Answer Date Recorded Within the past 12 months, y ou worried that your food would run out before you got the money to buy more. Never true 11/08/19 24 Within the past 12 months, t he food you bought just didn't last and you didn't have money to get more. Never true 11/08/2023 PRAPARE - Transportation Answer Date Re corded In the past 12 months, has l ack of transportation kept you from medical appointments or from getting medications? No 10/24 In the past 12 months, has l ack of transportation kept you from meetings, work, or from getting things needed for daily living? No 11/08/2023 Nutrition Answer Date Recorded On average, how many serving s of fruits and vegetables do you eat per day (serving size is equal to 1 cup or approximately the size of a tennis ball)? 5 or more 11/08/2023 Dental Answer Date Recorded Dental: Regular Dentist Yes 06/04/20 Employment Answer Date Recorded Employment status Retired 11/08/2023 Housing Stability Answer Date Recorded What is your living situation today? I have a [facility] place to live 11/08/2023 Education Answer Date Recorded What is the highest level of school you have completed or the highest degree you have received? 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 05/11/2024 1:00 PM CDT Clinical Communication Virtual Review in [place], [place] [address] [place] [address] 05/13/2024 11:30 AM CDT Appointment Department of Radiology, [facility], in [place], [place] [address] [place] [phone] Radha Keen APRN, C.N.P., M.S.N. [address] [place] [phone] 05/13/2024 2:30 PM CDT Office Visit Division of Thoracic Surgery in [place], [place] [address] [place] [phone] Radha Keen APRN, C.N.P., M.S.N. [address] [place] [phone] 05/28/2024 1:15 PM CDT Infusion Department of Infusion Therapy in [place], [place] [address] [place] [phone] Mehreen Landis M.D. 06/11/2024 1:00 PM CDT Clinical Communication Virtual Review in [place], [place] [address] [place] [address] 06/15/2024 1:30 PM CDT Office Visit Division of Allergic Diseases in [place], [place] [address] [place] [phone] Brayan Swain M.D., M.S. [address] [place] [phone] 06/22/2024 12:30 PM CDT Clinical Communication Virtual Review in [place], [place] [address] [place] [address] 06/23/2024 1:30 PM CDT Comprehensive Visit [facility] in [place], [place] [address] [place] [phone] Ada Day APRN, C.N.P., D.N.P. [address] [place] [phone] 06/25/2024 12:30 PM CDT Appointment Department of Laboratory Medicine and Pathology, [facility], in [place], [place] [address] [place] [phone] Mehreen Landis M.D. 06/25/2024 1:15 PM CDT Infusion Department of Infusion Therapy in [place], [place] [address] [place] [phone] Mehreen Landis M.D. Health Maintenance Due Date Last Done Comments CT Colonography 1952 Cologuard 1950 Colonoscopy 1950 Colorectal Cancer Screening 1952 FIT 1952 Hepatitis C Screening 1950 Mammogram 1952 Zoster Vaccines (1 of 2) 1971 Depression Screening (Annual PHQ-2) 08/26/2023 COVID-19 Vaccine (2022-2 4 season) 2023 07/23/2023, 03/05/2023, 08/07/2022, Additional history exists Influenza Vaccine (#1) 2024 , 06/26/2022, 06/25/2022, Additional history exists Fasting Glucose for Diabetes Screening 02/23/2027 02/24/2024, 10/16/2023, 10/14/2023, Additional history exists DTaP,Tdap,and Td Vaccines (4 - Td or Tdap) 05/07/2033 05/07/2023, 06/23/2012, 09/05/2010 Pneumococcal vaccine (65+ years) Completed 04/08/2020, 02/03/2019, 01/03/2018 Fall Risk Screen (Annual) Completed 04/02/2024 Medical Devices Implanted Type Area Criminal Justice Social Worker Device Identifier Shelf Expiration Date Model / Serial / Lot Wax Bn Nblbl 2.5gr - [id number] Implanted:Qty : 1 on 08/22/2022 by Lázaro Claudio M.D., Ph.D. at [facility] Hardware e.g. pins/screws/r ods [employer] 901 / / Clp Hrzn Ti 6 Clp Lg Orng - [id number] Implanted:Qty : 1 on 08/22/2022 by Lázaro Claudio M.D., Ph.D. at [facility] Hardware e.g. pins/screws/r ods [employer] [id number] 04/16/2027 [id number] / / [id number] Clp Hrzn Ti 24 Clp Md Nima - [id number] Implanted:Qty : 1 on 08/22/2022 by Lázaro Claudio M.D., Ph.D. at [facility] Hardware e.g. pins/screws/r ods [employer] [id number] 04/16/2027 [id number] / / [id number] Clp Hrzn Ti 6 Clp Lg Orng - [id number] Implanted:Qty : 1 on 08/22/2022 by Lázaro Claudio M.D., Ph.D. at [facility] Hardware e.g. pins/screws/r ods [employer] [id number] 04/16/2027 [id number] / / [id number] 65 Clp Hrzn Ti 6 Clp Md Nima - [id number] Implanted:Qty : 1 on 08/22/2022 by Lázaro Claudio M.D., Ph.D. at [facility] Hardware e.g. pins/screws/r ods Right: Chest [employer] [id number] 01/07/2027 [id number] / / [id number] 68 Clp Hrzn Ti 6 Clp Md Nima - [id number] Implanted:Qty : 1 on 08/22/2022 by Lázaro Claudio M.D., Ph.D. at [facility] Hardware e.g. pins/screws/r ods Right: Chest [employer] [id number] 01/07/2027 [id number] / / [id number] Clp Hrzn Ti 6 Clp Lg Orng - [id number] Implanted:Qty : 1 on 08/22/2022 by Lázaro Claudio M.D., Ph.D. at [facility] Hardware e.g. pins/screws/r ods Right: Chest [employer] [id number] 02/19/2027 [id number] / / [id number] Clp Hrzn Ti 6 Clp Nima - [id number] Implanted:Qty : 1 on 08/22/2022 by Lázaro Claudio M.D., Ph.D. at [facility] Hardware e.g. pins/screws/r ods Right: Chest [employer] [id number] 01/07/2027 [id number] / / [id number] 68 Clp Hrzn Ti 6 Clp Nima - [id number] Implanted:Qty : 1 on 08/22/2022 by Lázaro Claudio M.D., Ph.D. at [facility] Hardware e.g. pins/screws/r ods Right: Chest [employer] [id number] 04/09/2027 [id number] / / [id number] 56 Clp Hrzn Ti 24 Clp Nima - [id number] Implanted:Qty : 1 on 08/22/2022 by Lázaro Claudio M.D., Ph.D. at [facility] Hardware e.g. pins/screws/r ods Right: Chest [employer] [id number] 04/16/2027 [id number] / / [id number] 59 Clp Hrzn Ti 24 Clp Nima - [id number] Implanted:Qty : 1 on 08/22/2022 by Lázaro Claudio M.D., Ph.D. at [facility] Hardware e.g. pins/screws/r ods Right: Chest [employer] [id number] 04/16/2027 [id number] / / [id number] Ocular Lens Ocular Lens Eye Orthopedic Other Orthopedic Other Wrist Procedures Procedure Name Priority Date/Time Associated Diagnosis Comments IMMUNOGLOBULIN G (IGG), S Routine 04/02/2024 12:31 PM CDT Hypogammaglobulinemia (HCC) Other Combined Immunodeficiencies (HCC) PULMONARY FUNCTION TESTS Routine 03/31/2024 2:04 PM CDT Immunodeficiency (HCC) 25-HYDROXYVITAMIN D2 AND D3, S Routine 02/24/2024 3:57 PM CDT Immunodeficiency (HCC) QN LYMPHOCYTE SUBSETS: T, B, AND NK, B Routine 02/24/2024 3:57 PM CDT Immunodeficiency (HCC) IMMUNOGLOBULINS (IGG, IGA, AND IGM), S Routine 02/24/2024 3:57 PM CDT Immunodeficiency (HCC) FERRITIN, S Routine 02/24/2024 3:57 PM CDT Immunodeficiency (HCC) CBC WITH DIFFERENTIAL, B Routine 02/24/2024 3:57 PM CDT Immunodeficiency (HCC) COMPREHENSIVE METABOLIC PANEL, S/P Routine 02/24/2024 3:57 PM CDT Immunodeficiency (HCC) IMMUNOGLOBULIN G (IGG), S Routine 01/10/2024 12:35 PM CDT Hypogammaglobulinemia (HCC) Other Combined Immunodeficiencies (HCC) from Last 3 Months Results * (ABNORMAL) Immunoglobulin G (IgG) (04/02/2024 12:31 PM CDT) Only the most recent of2 resultswithin the time period is included. [facility] Immunoglobulin G (IgG), S 711(L) 767 - 1590 mg/dL 04/03/2024 9:51 AM CDT [facility] Blood (Blood, Venous) 04/02/2024 12:31 PM CDT 04/03/2024 6:22 AM CDT Mehreen Landis M.D. LAB BLOOD ADD-ON [facility] [address] [place] [id number] [facility] [address] [place] [id number] * Pulmonary Function Tests (03/31/2024 2:04 PM CDT) [facility] PostFVC 3.33 L 03/31/2024 4:43 PM CDT [facility] PostFEV1 2.66 L 03/31/2024 4:43 PM CDT [facility] FEV1/FVC POST 80.11 % 03/31/2024 4:43 PM CDT [facility] SU[address] FEF 25-75 % POST 2.43 L/s 03/31/2024 4:43 PM CDT [facility] SU[facility] PEF POST 6.56 L/s 03/31/2024 4:43 PM CDT [facility] SU[facility] PIF POST 4.58 L/s 03/31/2024 4:43 PM CDT [facility] SU[facility] FEF 50 % FIF 50 POST 67.79 % 03/31/2024 4:43 PM CDT [facility] SU[facility] FET POST 4.21 sec 03/31/2024 4:43 PM CDT [facility] SU[facility] DLCO 13.43 ml/(min*mm Hg) 03/31/2024 4:43 PM CDT [facility] SU[facility] VA 4.56 L 03/31/2024 4:43 PM CDT [facility] SUITE PulseRest 79.00 1/min 03/31/2024 4:43 PM CDT [facility] SU[facility] X0EdzKzaa 97.00 % 03/31/2024 4:43 PM CDT [facility] SUITE PulseExer 96.00 1/min 03/31/2024 4:43 PM CDT [facility] SU[facility] EXER TIME 3.00 min 03/31/2024 4:43 PM CDT [facility] SU[facility] STEP HEIGHT PRE 9.00 Inch 03/31/2024 4:43 PM CDT [facility] SU[facility] TLC 5.84 L 03/31/2024 4:43 PM CDT [facility] SU[facility] FRCPLETH PROVBASE 4.06 L 03/31/2024 4:43 PM CDT [facility] SU[facility] RV 2.56 L 03/31/2024 4:43 PM CDT [facility] SU[facility] RV % TLC PRE 43.85 % 03/31/2024 4:43 PM CDT [facility] SU[facility] FVC 3.28 L 03/31/2024 4:43 PM CDT [facility] SU[facility] FEV1 2.48 L 03/31/2024 4:43 PM CDT [facility] SU[facility] FEV1/FVC 75.78 % 03/31/2024 4:43 PM CDT [facility] SU[facility] CNY24-87% 1.96 L/s 03/31/2024 4:43 PM CDT [facility] PEF PRE 6.44 L/s 03/31/2024 4:43 PM CDT [facility] PIF PRE 3.86 L/s 03/31/2024 4:43 PM CDT [facility] FEF 50 % FIF 50 PRE 84.44 % 03/31/2024 4:43 PM CDT [facility] FET PRE 6.10 sec 03/31/2024 4:43 PM CDT [facility] SUBSTANCE POST Albuterol 03/31/2024 4:43 PM CDT [facility] 03/31/2024 2:04 PM CDT Impressions [facility] - 03/31/2024 4:43 PM CDT Abnormal. Diffusing capacity unadjusted for hemoglobin is moderately reduced, consistent with anemia, a pulmonary parenchymal, and/or vascular process. Normal spirometry an dlung volumes. There is no immediate bronchodilator response. Oxygen saturation at rest and during exercise is normal. Compared to 06/05/2022, FEV1, FVC, and TLC have increased. Narrative Procedure Note Guille Wick M.D. - 03/31/2024 IMPRESSION: Abnormal. Diffusing capacity unadjusted for hemoglobin is moderatelyreduced, consistent with anemia, a pulmonary parenchymal, and/or vascularprocess. Normal spirometry an dlung volumes. There is no immediatebronchodilator response. Oxygen saturation at rest and during exercise is normal. Compared to 06/05/2022, FEV1, FVC,and TLC have increased. Brayan Swain M.D., M.S. PFT ORDERABLES [facility] NA * (ABNORMAL) Quantitative Lymphocyte Subsets: T, B, and Natural Killer (NK) (02/24/2024 3:57 PM CDT) CD45 Total Lymph Count 0.66(L) 0.82 - 2.84 thou/mcL 02/24/2024 11:19 PM CDT [facility] % CD3 (T Cells) 92(H) 58 - 86 % 11:19 PM CDT [facility] CD3 (T Cells) 610 550 - 2202 cells/mcL 02/24/2024 11:19 PM CDT [facility] % CD4 (T Cells) 43 32 - 64 % 11:19 PM CDT [facility] CD4 (T Cells) 287(L) 365 - 1437 cells/[facility] 02/24/2024 11:19 PM CDT [facility] % CD8 (T Cells) 44(H) 8 - 40 % 11:19 PM CDT [facility] CD8 T Cells 295 80 - 846 cells/[facility] 02/24/2024 11:19 PM CDT [facility] % CD19 (B Cells) 0(L) 3 - 24 % 02/24/20 11:19 PM CDT [facility] CD19 (B Cells) 0(L) 45 - 409 cells/[facility] 02/24/2024 11:19 PM CDT [facility] % CD16+CD56 (NK cells) 8 5 - 28 % 02/24/2024 11:19 PM CDT [facility] CD16+CD56 (NK cells) 53(L) 59 - 513 cells/[facility] 02/24/2024 11:19 PM CDT [facility] 4/8 Ratio 1.0 >=0.9 02/24/2024 11:19 PM CDT [facility] Comment: ----ADDITIONAL INFORMATION---- This test was developed using an analyte specific reagent. Its performance characteristics were determined by [facility] in a manner consistent with CLIA requirements. This test has not been cleared or approved by the U.S. Food and Drug Administration. Blood (Blood, Venous) 02/24/2024 3:57 PM CDT 02/24/2024 5:53 PM CDT Brayan Swain M.D., M.S. LAB BLOOD ADD-ON [facility] [place] [address] [place] [id number] [facility] [address] [place] [address] [place] [address] * 25-Hydroxyvitamin D2 and D3 (02/24/2024 3:57 PM CDT) 25-Hydroxy D2 <4.0 ng/mL 02/26/2024 3:30 PM CDT [facility] 25-Hydroxy D3 78 ng/mL 02/26/2024 3:30 PM CDT [facility] 25-Hydroxy D Total 78 ng/mL 2023 3:30 PM CDT [facility] Comment: Interpretation: 51-80 ng/mL (increased risk of hypercalciuria) ----REFERENCE VALUE---- 25-HYDROXY D TOTAL (D2+D3) Optimum levels in the healthy population are 20-50. ----ADDITIONAL INFORMATION---- This test was developed and its performance characteristics determined by [facility] in a manner consistent with CLIA requirements. This test has not been cleared or approved by the U.S. Food and Drug Administration. Blood (Blood, Venous) 02/24/2024 3:57 PM CDT 02/25/2024 7:28 AM CDT Brayan Swain M.D., M.S. LAB BLOOD ADD-ON [facility] [place] [address] [place] [address] [facility] [address] [place] [place] [place] [address] * (ABNORMAL) CBC with Differential, Blood (02/24/2024 3:57 PM CDT) [facility] Hemoglobin 11.8 11.6 - 15.0 g/dL 02/24/2024 4:22 PM CDT [facility] Hematocrit 36.6 35.5 - 44.9 % 02/24/2024 4:22 PM CDT [facility] Erythrocytes 4.06 3.92 - 5.13 x10(12)/L 02/24/2024 4:22 PM CDT [facility] MCV 90.1 78.2 - 97.9 fL 02/24/2024 4:22 PM CDT [facility] RBC Distrib Width 15.0 12.2 - 16.1 % 02/24/2024 4:22 PM CDT [facility] Platelet Count 209 157 - 371 x10(9)/L 02/24/2024 4:22 PM CDT [facility] Leukocytes 2.5(L) 3.4 - 9.6 x10(9)/L 02/24/2024 4:22 PM CDT [facility] Neutrophils 1.48(L) 1.56 - 6.45 x10(9)/L 02/24/2024 9:[address] [facility] Comment:Rechecked Lymphocytes 0.69(L) 0.95 - 3.07 x10(9)/L 02/24/2024 9:00 PM CDT [facility] Monocytes 0.36 0.26 - 0.81 x10(9)/L 02/24/2024 9:00 PM CDT [facility] Eosinophils <0.03 0.03 - 0.48 x10(9)/L 02/24/2024 9:00 PM CDT [facility] Basophils <0.03 0.01 - 0.08 x10(9)/L 02/24/2024 9:00 PM CDT [facility] Blood (Blood, Venous) 02/24/2024 3:57 PM CDT 02/24/2024 4:17 PM CDT Brayan Swain M.D., M.S. LAB BLOOD ADD-ON [facility] [address] [place] [address], [facility] [address] [place] [address] * (ABNORMAL) Immunoglobulins (IgG, IgA, and IgM) (02/24/2024 3:57 PM CDT) Immunoglobulin A (IgA), S 12(L) 61 - 356 mg/dL 02/25/2024 9:25 AM CDT [facility] Immunoglobulin M (IgM), S <5(L) 37 - 286 mg/dL 02/25/2024 9:25 AM CDT [facility] Immunoglobulin G (IgG), S [phone] - 1590 mg/dL 02/25/2024 8:49 AM CDT [facility] Blood (Blood, Venous) 02/24/2024 3:57 PM CDT 02/25/2024 6:40 AM CDT Brayan Swain M.D., M.S. LAB BLOOD ADD-ON Performing Organization Address City/[facility]/ZIP Co de Phone Number [facility] [address] [place] [address] [facility] [facility] [address] [place] [address] * Ferritin (02/24/2024 3:57 PM CDT) Ferritin, S 21 11 - 328 mcg/L 02/24/2024 4:54 PM CDT DTL Blood (Blood, Venous) 02/24/2024 3:57 PM CDT 02/24/2024 4:31 PM CDT Brayan Swain M.D., M.S. LAB BLOOD ADD-ON Performing Organization Address [facility] Co de Phone Number [facility] [address] [place] [address], [facility] DTL [facility] [address] [place] [address] * (ABNORMAL) Comprehensive Metabolic Panel (02/24/2024 3:57 PM CDT) Potassium, S 4.7 3.6 - 5.2 mmol/L 02/24/2024 4:54 PM CDT DTL Sodium, S 141 135 - 145 mmol/L 02/24/2024 4:54 PM CDT DTL Chloride, S 102 98 - 107 mmol/L 02/24/2024 4:54 PM CDT DTL Bicarbonate, S 30(H) 22 - 29 mmol/L 02/24/2024 4:54 PM CDT DTL Anion Gap 9 7 - 15 02/24/2024 4:54 PM CDT DTL BUN (Blood Urea Nitrogen), S 12 6 - 21 mg/dL 02/24/2024 4:54 PM CDT DTL Creatinine 0.79 0.59 - 1.04 mg/dL 02/24/2024 4:54 PM CDT DTL Estimated GFR (eGFR) 80 >=60 mL/min/BS A 02/24/2024 4:54 PM CDT DTL Comment: Estimated GFR calculated using the 2020 CKD_EPI creatinine equation. Calcium, Total, S 9.5 8.8 - 10.2 mg/dL 02/24/2024 4:54 PM CDT DTL Glucose, S 96 70 - 140 mg/dL 02/24/2024 4:54 PM CDT DTL Protein, Total, S 6.6 6.3 - 7.9 g/dL 02/24/2024 4:54 PM CDT DTL Albumin, S 4.5 3.5 - 5.0 g/dL 02/24/2024 4:54 PM CDT DTL Aspartate Aminotransferase (AST), S 32 8 - 43 U/L 02/24/2024 4:54 PM CDT DTL Alkaline Phosphatase, S 93 35 - 104 U/L 02/24/2024 4:54 PM CDT DTL Alanine Aminotransferase (ALT), S 24 7 - 45 U/L 02/24/2024 4:54 PM CDT DTL Bilirubin, Total, S <0.2 0.0 - 1.2 mg/dL 02/24/2024 4:54 PM CDT DTL Blood (Blood, Venous) 02/24/2024 3:57 PM CDT 02/24/2024 4:31 PM CDT Brayan Swain M.D., M.S. LAB BLOOD ADD-ON [facility] [address] [place] [address], [facility] [address] [place] [address] from Last 3 Months Advance Directives For more information, please contact: [phone] Documents on File Type Date Recorded Patient Distribution Coordinator Expl anation Advance Directives 08/22/2022 9:15 AM Rea Phillips HCPOA/ADVOCATE/AGENT/R EPRESENTATIVE/SURROGAT E * Full Code (Latest Code Status on File) Date Activated Date Inactivated Comments 10/12/2023 2:09 AM 10/18/2023 6:59 PM Question Answer Comments Full Code: Discussed * Full Code Date Activated Date Inactivated Comments 08/22/2022 3:36 PM 08/27/2022 2:15 PM Question Answer Comments Full Code: Not Discussed Due to: Patient not available Healthcare Agents on File Name Relationship Healthcare Agent Relationship Communication Rea Sousa Sister Health Care Agent [phone] (Home) [email or web address] Abraham Jacqueline Leavitt Health Care Agent [email or web address] Alex Albaro Leavitt First Altern ate Health Care Agent Care Teams Contact Center Analyst Relationship Specialty Start Date End Date Elsewhere, Pcp PCP - General 11/07/23
--- OUTSIDE RECORDS SUMMARY | 2024-04-10 02:22 | XMS_ITS | Encounter Summary ---
Author Organization [facility] Address [address] [place] [address] Care Team Providers Care Seafood Clerk Name Role Phone Elsewhere, Pcp Primary Care Provider Unavailabl e Reason for Visit * Episode Based Medications (Routine) - Authorized Specialty Diagnoses / Procedures Referred By Contac t Referred To Contact Diagnoses Hypogammaglobulinemia (HCC) Other Combined Immunodeficiencies (HCC) Procedures [place] GAMMAGARD LIQUID INJ Mehreen Landis M.D. [address] [place] [address] [place] [address] Referral ID Status Reason Start Date Expiration Date V isits Requested Visits Authorized [id number] Authorized 10/17/2023 08/25/2024 12 12 Encounter Details Date Type Department Care Team (Latest Contact Info) Description 04/02/2024 1:15 PM CDT Infusion Department of Infusion Therapy in [place], [place] [address] [place] [phone] Mehreen Landis M.D. Other Combined Immunodeficiencies (HCC) (Primary Dx); Hypogammaglobulinemia (HCC) Discharge Disposition: Home or Self Care Social History Tobacco Use Types Packs/Day Years Used Date Smoking Tobacco: Never Smokeless Tobacco: Never Comments:I have never used t obacco. Alcohol Use Standard Drinks/Week Comments Never 0 (1 standard drink = 0.6 oz pur e alcohol) [facility] Utilities Answer Date Recorded In the [...] declined 06/04/2022 How often do you attend [facility] or islam services? Never 06/04/2022 Do you [...] care, and heating? Not very hard 06/04/2022 [facility] - Occupational [...] Master's degree (e.g., MA, MS, Milly, MEd, BULL FLOAT FINISHER, MADELYN) 06/04/2022 Sex and Gender Information Value [...] 16 04/02/2024 4:46 PM CDT Oxygen Saturation - - Inhaled Oxygen Concentration - - Weight 69.7 kg (153 lb 10.6 oz) 024 12:54 PM CDT Height - - Body Mass Index 23.29 10/17/2023 12:17 PM RIVET STICKER documented in this encounter Plan of Treatment Upcoming Encounters Date Type Department Care Team (Latest Contact Info) Description 04/30/2024 1:00 PM CDT Infusion Department of Infusion Therapy in [address] [place] [address] Mehreen Landis M.D. 05/11/2024 1:00 PM CDT Clinical Communication Virtual Review in [place], [place] 200 [place] [address] 05/13/2024 11:30 AM CDT Appointment Department of Radiology, [facility], in [place], [place] [address] [place] [phone] Radha Keen APRN, C.N.P., M.S.N. [address] [place] [phone] 05/13/2024 2:30 PM CDT Office Visit Division of Thoracic Surgery in [place], [place] [address] [place] [phone] Radha Keen APRN, C.N.P., M.S.N. [address] [place] [phone] 05/28/2024 1:15 PM CDT Infusion Department of Infusion Therapy in [place], [place] [facility] [address] [place] [phone] Mehreen Landis M.D. 06/11/2024 1:00 PM CDT Clinical Communication Virtual Review in [place], [place] 200 [place] [address] 06/15/2024 1:30 PM CDT Office Visit Division of Allergic Diseases in [place], [place] [address] [place] [phone] Brayan Swain M.D., M.S. [address] [place] [phone] 06/22/2024 12:30 PM CDT Clinical Communication Virtual Review in [place], [place] 200 [place] [address] 06/23/2024 1:30 PM CDT Comprehensive Visit [facility] in [place], [place] [address] [place] [phone] Ada Day, CICI, C.N.P., D.N.P. [address] [place] [phone] 06/25/2024 12:30 PM CDT Appointment Department of Laboratory Medicine and Pathology, [facility], in [place], [place] [facility] [address] [place] [phone] Mehreen Landis M.D. 06/25/2024 1:15 PM CDT Infusion Department of Infusion Therapy in [place], [place] [address] [place] [phone] Mehreen Landis M.D. documented as of this encounter Visit Diagnoses Diagnosis Other Combined Immunodeficiencies (HCC)- Primary Hypogammaglobulinemia (HCC) documented in this encounter Administered Medications Inactive Administered Medications - up to 3 most recent administrations Medication Order MAR Action Action Date Dose Rate Site immune globulin (human) 10 % infusion 35 g (Gammagard) 35 g, intravenous, Once, On Christina 04/02/24 at 1315, For 1 dose, Pump programming: Use same weight used in dosing calculation- See Ordered Dose weight above. If no weight indicated: Calculate dose based on [place] Body Weight (IBW). If Actual Body Weight (ABW) < IBW, use ABW. Start infusion at 0.5 mL/kg/hour for 30 minutes. Then increase to 1 mL/kg/hour for 30 minutes. Then increase to 2 mL/kg/hour for 30 minutes. Then increase to 4 mL/kg/hour for 30 minutes. Then may increase to maximum rate of 8 mL/kg/hour as tolerated until infusion complete. Do NOT shake or filter. Hand deliver., Restriction Criteria (Pharmacy will review and approve if criteria met): Meets IVIG administration criteria, Indications: primary immune deficiency disorder Rate/Dose Change 04/02/2024 2:27 PM CDT 128 mL/hr Rate/Dose Change 04/02/2024 1:56 PM CDT 64.2 mL /hr New Bag 04/02/2024 1:24 PM CDT 35 g 32.1 mL/hr sodium chloride 0.9 % injection 3 mL 3 mL, intravenous, As needed, line care, Starting on Christina 04/02/24 at 1332, Prior to and following infusion and between multiple consecutive infusions. Given 04/02/2024 4:48 PM CDT 3 mL Given 04/02/2024 1:23 PM CDT 3 mL Given 04/02/2024 1:15 PM CDT 3 mL documented in this encounter Care Teams Seafood Clerk Relationship Specialty Start Date End Date Elsewhere, Pcp PCP - General 11/07/23 documented as of this encounter
--- OUTSIDE RECORDS SUMMARY | 2024-04-10 02:22 | XMS_ITS | Encounter Summary ---
Author Organization [facility] Address [address] [place] [address] Care Team Providers Care Configuration Manager Name Role Phone Elsewhere, Pcp Primary Care Provider Unavailabl e Reason for Referral * Outpatient (Routine) - Authorized Specialty Diagnoses / Procedures Referred By Contliz t Referred To Contact Allergy and Immunology Brayan Swain M.D., M.S. [address] [place] [address] [facility] Referral ID Status Reason Start Date Expiration Date V isits Requested Visits Authorized [id number] Authorized 03/03/2024 09/02/2025 1 1 Encounter Details Date Type Department Care Team (Late st Contact Info) Description 03/03/2024 Orders Only Division of Pediatric Allergy & Immunology in [place], [place] [address] [place] [phone] Brayan Swain M.D., M.S. 200 [place] [address] Social History Tobacco Use Types Packs/Day Years Used Date Smoking Tobacco: Never Smokeless Tobacco: Never Comments:I have never used t obacco. Alcohol Use Standard Drinks/Week Comments Never 0 (1 standard drink = 0.6 oz pur e alcohol) [facility] Utilities Answer Date Recorded In the past 12 months has e [employer], gas, oil, or water [employer] threatened to shut off services in your [...] 06/04/2022 How often do you attend [facility] or church services? Never 06/04/2022 Do you belong to any clubs o r organizations such as congregation groups, unions, fraternal or athletic groups, or [...] care, and heating? Not very hard 06/04/2022 [facility] - Occupational Stress Questionnaire Answer Date Recorded [...] money to buy more. Never true 11/08/19 Within the past 12 months, t he [...] Master's degree (e.g., MA, MS, Milly, MEd, BODY SHOP SUPERVISOR, MADELYN) 06/04/2022 Sex and Gender Information Value Date Recorded Sex Assigned at Female 06/04/2022 4:58 PM CDT Gender Identity Female 06/04/2022 4:58 PM CDT Sexual Orientation Straight 06/04/2022 4: 58 PM CDT documented as of this encounter Plan of Treatment Upcoming Encounters Date Type Department Care Team (Latest Contact Info) Description 04/30/2024 1:00 PM CDT Infusion Department of Infusion Therapy in [place], [place] [address] [place] [address] Mehreen Landis M.D. 05/11/2024 1:00 PM CDT Clinical Communication Virtual Review in [address] [phone] 05/13/2024 11:30 AM CDT Appointment Department of Radiology, [facility], in [place], [place] [address] [place] [phone] Radha Keen APRN, C.N.P., M.S.N. [address] [place] [phone] 05/13/2024 2:30 PM CDT Office Visit Division of Thoracic Surgery in [place], [place] [address] [place] [phone] Radha Keen APRN, C.N.P., M.S.N. [address] [place] [phone] 05/28/2024 1:15 PM CDT Infusion Department of Infusion Therapy in [place], [place] [address] [place] [address] Mehreen Landis M.D. 06/11/2024 1:00 PM CDT Clinical Communication Virtual Review in [place], [place] 200 [place] [address] 06/15/2024 1:30 PM CDT Office Visit Division of Allergic Diseases in [place], [place] [address] [place] [phone] Brayan Swain M.D., M.S. [address] [place] [phone] 06/22/2024 12:30 PM CDT Clinical Communication Virtual Review in [place], [place] 200 [place] [address] 06/23/2024 1:30 PM CDT Comprehensive Visit [facility] in [place], [place] [address] [place] [phone] Ada Day APRN, C.N.P., D.N.P. [address] [place] [phone] 06/25/2024 12:30 PM CDT Appointment Department of Laboratory Medicine and Pathology, [facility], in [place], [place] [facility] [address] [place] [phone] Mehreen Landis M.D. 06/25/2024 1:15 PM CDT Infusion Department of Infusion Therapy in [address] [place] [phone] Mehreen Landis M.D. Scheduled Referrals Name Type Priority Associated Diagnoses Order Schedule Allergy and Immunology office visit (clinic) Immunodeficiency Outpatient Referral Routine Expected: 06/03/2024, Expires: 06/03/2025 documented as of this encounter Visit Diagnoses Not on filedocumented in this encounter Care Teams Configuration Manager Relationship Specialty Start Date End Date Elsewhere, Pcp PCP - General 11/07/23 documented as of this encounter
--- OUTSIDE RECORDS SUMMARY | 2024-04-10 02:22 | XMS_ITS | Encounter Summary ---
Author Organization [facility] Address [address] [place] [address] Care Team Providers Care Cotton Baler Name Role Phone Elsewhere, Pcp Primary Care Provider Unavailabl e Reason for Visit * Episode Based Medications (Routine) - Authorized Specialty Diagnoses / Procedures Referred By Contac t Referred To Contact Diagnoses Hypogammaglobulinemia (HCC) Other Combined Immunodeficiencies (HCC) Procedures [place] GAMMAGARD LIQUID INJ Mehreen Landis M.D. [address] [place] [address] [place] [phone] Referral ID Status Reason Start Date Expiration Date V isits Requested Visits Authorized [id number] Authorized 10/17/2023 08/25/2024 12 12 Encounter Details Date Type Department Care Team (Latest Contact Info) Description 04/02/2024 12:26 PM CDT - 04/02/2024 11:59 PM CDT Hospital Encounter Department of Laboratory Medicine and Pathology, [facility], in [place], [place] [address] [place] [phone] Mehreen Landis M.D. Hypogammaglobulinemia (HCC); Other Combined Immunodeficiencies (HCC) Discharge Disposition: Home or Self Care Social History Tobacco Use Types Packs/Day Years Used Date Smoking Tobacco: Never Smokeless Tobacco: Never Comments:I have never used t obacco. Alcohol Use Standard Drinks/Week Comments Never 0 (1 standard drink = 0.6 oz pur e alcohol) [facility] Utilities Answer Date Recorded In the past 12 months has e Fwd: Power, [employer], oil, or water [employer] threatened to shut off services in your [...] declined 06/04/2022 How often do you attend [facility] or confucianism services? Never 06/04/2022 Do you [...] care, and heating? Not very hard 06/04/2022 [facility] - Occupational Stress Questionnaire Answer Date Recorded [...] Master's degree (e.g., MA, MS, Milly, MEd, INSURANCE CLAIMS REPRESENTATIVE, MADELYN) 06/04/2022 Sex and Gender Information Value [...] 6 (six) hours as needed (pain). 08/27/2022 B complex-vitamin C (SUPERPLEX-T) per tablet Take 1 tablet by mouth daily. calcium-vitamin D3-vitamin K (VIACTIV) 650 mg-12.5 mcg (500 Unit)-40 mcg tablet,chewable per chewable tablet Chew 1 tablet 2 (two) times a day with meals. cholecalciferol (VITAMIN D3) 10 mcg (400 Unit) tablet Take 2,000 Units by mouth. 03/14/2022 diphenhydrAMINE-lidocain e-antacid (Magic Mouthwash) 1:1:1 Take 10 mL by mouth. 10/08/2023 docusate sodium 100 mg capsule Take 2 tablets (200 mg total) by mouth 2 (two) times a day as needed for constipation. 10/18/2023 estradioL (ESTRACE) 0.5 mg tablet Take 0.75 mg by mouth daily. 03/14/2022 glucosamine-chondroitin 500-400 mg per tablet Take 2 tablets by mouth daily. lidocaine viscous (XYLOCAINE) 2 % mucosal solution Apply 15 mL to the mouth or throat 4 (four) times a day after meals and bedtime. Swish and spit, do not swallow. 100 mL 2 10/18/2023 vgzmdgzxmeac-klyaeqzu-gn tein (CENTURY MATURE) tablet Take 1 tablet by mouth daily. omeprazole (PriLOSEC) [address] capsule Take 20 mg by mouth every morning before breakfast. 03/27/2023 sulfamethoxazole-trimeth oprim (Bactrim DS) 800-160 mg per tabletIndications:Prophy laxis, medical Take 1 tablet by mouth daily Indications: Prophylaxis, medical. 90 tablet 10/19/2023 sulfamethoxazole-trimeth oprim (Bactrim) 400-80 mg per tablet Take 1 tablet by mouth daily. 90 tablet 3 03/03/2024 valACYclovir (VALTREX) 500 mg tablet Take 1 tablet (500 mg total) by mouth 2 (two) times a day. 180 tablet 10/27/2023 zinc sulfate (ZINCATE) 220 (50 mg zinc) capsule Take 220 mg by mouth. documented as of this encounter Plan of Treatment Upcoming Encounters Date Type Department Care Team (Latest Contact Info) Description 04/30/2024 1:00 PM CDT Infusion Department of Infusion Therapy in [place], [place] [address] [place] [address] Mehreen Landis M.D. 05/11/2024 1:00 PM CDT Clinical Communication Virtual Review in [place], [place] 200 [place] [address] 05/13/2024 11:30 AM CDT Appointment Department of Radiology, [facility], in [place], [place] [address] [place] [phone] Radha Keen APRN, C.N.P., M.S.N. [address] [place] [phone] 05/13/2024 2:30 PM CDT Office Visit Division of Thoracic Surgery in [place], [place] [address] [place] [phone] Radha Keen APRN, C.N.P., M.S.N. [address] [place] [phone] 05/28/2024 1:15 PM CDT Infusion Department of Infusion Therapy in [place], [place] [address] [place] [address] Mehreen Landis M.D. 06/11/2024 1:00 PM CDT Clinical Communication Virtual Review in [place], [place] 200 [place] [address] 06/15/2024 1:30 PM CDT Office Visit Division of Allergic Diseases in [place], [place] [address] [place] [phone] Brayan Swain M.D., M.S. [address] [place] [phone] 06/22/2024 12:30 PM CDT Clinical Communication Virtual Review in [place], [place] 200 [place] [phone] 06/23/2024 1:30 PM CDT Comprehensive Visit [facility] in [place], [place] [address] [place] [phone] Ada Day APRN, C.N.P., D.N.P. [address] [place] [phone] 06/25/2024 12:30 PM CDT Appointment Department of Laboratory Medicine and Pathology, [facility], in [place], [place] [facility] [address] [place] [phone] Mehreen Landis M.D. 06/25/2024 1:15 PM CDT Infusion Department of Infusion Therapy in [place], [place] [facility] [address] [place] [phone] Mehreen Landis M.D. documented as of this encounter Procedures Procedure Name Priority Date/Time Associated Diagnosis Comments IMMUNOGLOBULIN G (IGG), S Routine 04/02/2024 12:31 PM CDT Hypogammaglobulinemia (HCC) Other Combined Immunodeficiencies (HCC) documented in this encounter Results * (ABNORMAL) Immunoglobulin G (IgG) (04/02/2024 12:31 PM CDT) Immunoglobulin G (IgG), S 711(L) 767 - 1590 mg/dL 04/03/2024 9:51 AM CDT [facility] Blood (Blood, Venous) 04/02/2024 12:31 PM CDT 04/03/2024 6:22 AM CDT Mehreen Landis M.D. LAB BLOOD ADD-ON [facility] [address] [place] [address] [facility] [address] [place] [place] [address] documented in this encounter Visit Diagnoses Diagnosis Hypogammaglobulinemia (HCC) Other Combined Immunodeficiencies (HCC) documented in this encounter Care Teams Cotton Baler Relationship Specialty Start Date End Date Elsewhere, Pcp PCP - General 11/07/23 documented as of this encounter
--- OUTSIDE RECORDS SUMMARY | 2024-04-10 02:22 | XMS_ITS | Encounter Summary ---
Author Organization [facility] Address [address] [place] [address] Care Team Providers Care Stator Connector Name Role Phone Elsewhere, Pcp Primary Care Provider Unavailabl e Reason for Visit * Reason Onset Date Comments Letter for outside providers and Valtrex 024 Encounter Details Date Type Department Care Team (Latest Contact Info) Description 03/23/2024 Clinical Communication Division of Allergic Diseases in [place], [place] [address] [place] [address] Brayan Swain M.D., M.S. [address] [place] [address] Letter for outside providers and Valtrex Social History Tobacco Use Types Packs/Day Years Used Date Smoking Tobacco: Never Smokeless Tobacco: Never Comments:I have never used t obacco. Alcohol Use Standard Drinks/Week Comments Never 0 (1 standard drink = 0.6 oz pur e alcohol) [facility] Utilities Answer Date Recorded In the past 12 months has [employer], or [employer] threatened to shut off services in your [...] care, and heating? Not very hard 06/04/2022 [facility] [place] of Occupat ional Health - Occupational [...] your living situation today? I have a [facility] place to live 11/08/2023 Education Answer Date Recorded What is the highest level of school you have completed or the highest degree you have received? Master's degree (e.g., MA, MS, Milly, MEd, REST ROOM MATRON, MADELYN) 06/04/2022 Sex and Gender Information Value Date Recorded Sex Assigned at Female 06/04/2022 4:58 PM CDT Gender Identity Female 06/04/2022 4:58 PM CDT Sexual Orientation Straight 06/04/2022 4: 58 PM CDT documented as of this encounter Plan of Treatment Upcoming Encounters Date Type Department Care Team (Latest Contact Info) Description 04/30/2024 1:00 PM CDT Infusion Department of Infusion Therapy in [place], [place] [address] [place] [address] Mehreen Landis M.D. 05/11/2024 1:00 PM CDT Clinical Communication Virtual Review in [place], [place] [address] [place] [address] 05/13/2024 11:30 AM CDT Appointment Department of Radiology, [facility], in [place], [place] [address] [place] [phone] Radha Keen APRN, C.NCasandra., M.S.N. [address] [place] [phone] 05/13/2024 2:30 PM CDT Office Visit Division of Thoracic Surgery in [place], [place] [address] [place] [phone] Radha Keen APRN, C.NCasandra., M.S.N. [address] [place] [phone] 05/28/2024 1:15 PM CDT Infusion Department of Infusion Therapy in [place], [place] [address] [place] [address] Mehreen Landis M.D. 06/11/2024 1:00 PM CDT Clinical Communication Virtual Review in [place], [place] 200 [place] [address] 06/15/2024 1:30 PM CDT Office Visit Division of Allergic Diseases in [place], [place] [address] [place] [phone] Brayan Swain M.D., M.S. [address] [place] [phone] 06/22/2024 12:30 PM CDT Clinical Communication Virtual Review in [place], [place] [address] [place] [address] 06/23/2024 1:30 PM CDT Comprehensive Visit [facility] in [place], [place] [address] [place] [address] Ada Day APRN, AngelaN.P., AliciaN.P. [address] [place] [address] 06/25/2024 12:30 PM CDT Appointment Department of Laboratory Medicine and Pathology, [facility], in [place], [place] [facility] [address] [place] [phone] Mehreen Landis M.D. 06/25/2024 1:15 PM CDT Infusion Department of Infusion Therapy in [place], [place] [facility] [address] [place] [phone] Mehreen Landis M.D. documented as of this encounter Visit Diagnoses Not on filedocumented in this encounter Care Teams Stator Connector Relationship Specialty Start Date End Date Elsewhere, Pcp PCP - General 11/07/23 documented as of this encounter
--- OUTSIDE RECORDS SUMMARY | 2024-04-10 02:22 | XMS_ITS | Referral Summary ---
Author Organization [facility] Address [address] [place] [address] Care Team Providers Care Nursing Clerk Name Role Phone Elsewhere, Pcp Primary Care Provider Unavailabl e Source Comments Patient records contain information from all sites at [facility]. For routine questions regarding patient records, call [phone] during business hours, M-F 8:00 AM - 5:00 PM Central Time. Record requests for emergency care only can be directed to [phone] at any time.[facility] Encounters Date Type Department Care Team Description 04/02/2024 12:26 PM CDT - 04/02/2024 11:59 PM CDT Hospital Encounter Department of Laboratory Medicine and Pathology, [facility], in [place], [place] [facility] [address] [place] [address] Mehreen Landis M.D. Hypogammaglobulinemia (HCC); Other Combined Immunodeficiencies (HCC) Discharge Disposition: Home or Self Care 04/02/2024 1:15 PM CDT Infusion Department of Infusion Therapy in [place], [place] [facility] [address] [place] [address] Mehreen Landis M.D. Other Combined Immunodeficiencies (HCC) (Primary Dx); Hypogammaglobulinemia (HCC) Discharge Disposition: Home or Self Care 03/23/2024 Clinical Communication Division of Allergic Diseases in [place], [place] [address] [place] [phone] Brayan Swain M.D., M.S. Letter for outside providers and Valtrex 03/05/2024 1:15 PM CDT Infusion Department of Infusion Therapy in [place] [address] [place] [address] Mehreen Landis M.D. Hypogammaglobulinemia (HCC) (Primary Dx); Other Combined Immunodeficiencies (HCC) 03/03/2024 Orders Only Division of Pediatric Allergy & Immunology in [place], [place] [address] [place] [phone] Brayan Swain M.D., M.S. 02/24/2024 3:40 PM CDT - 02/24/2024 11:59 PM CDT Hospital Encounter Department of Laboratory Medicine and Pathology, [facility], in [place], [place] [address] [place] [phone] Brayan Swain M.D., M.S. Immunodeficiency (HCC) Discharge Disposition: Home or Self Care 02/24/2024 2:30 PM CDT Office Visit Division of Allergic Diseases in [place], [place] [address] [place] [phone] Brayan Swain M.D., M.S. Need Therapy Hormone Replacement (Primary Dx); Immunodeficiency (HCC) 02/20/2024 11:00 AM CDT Clinical Communication Virtual Review in [place], [place] [address] [place] [address] Previsit Preparation 02/06/2024 1:15 PM CDT Infusion Department of Infusion Therapy in [place] [address] [place] [address] Mehreen Landis M.D. Hypogammaglobulinemia (HCC) (Primary Dx); Other Combined Immunodeficiencies (HCC) Discharge Disposition: Home or Self Care 01/10/2024 12:26 PM CDT - 01/10/2024 11:59 PM CDT Hospital Encounter Department of Laboratory Medicine and Pathology, [facility], in [place], [place] [address] [place] [address] Mehreen Landis M.D. Hypogammaglobulinemia (HCC); Other Combined Immunodeficiencies (HCC) Discharge Disposition: Home or Self Care 01/10/2024 1:15 PM CDT Infusion Department of Infusion Therapy in [place], [place] [address] [place] [address] Mehreen Landis M.D. Other Combined Immunodeficiencies (HCC) (Primary Dx); Hypogammaglobulinemia (HCC) Discharge Disposition: Home or Self Care from Last 3 Months Allergies Active Allergy [...] (07/31/2022): Added automatically from request for surgery [id number] Immunizations Name Administration Dates Next Due PCV13 01/03/2018 Social History Tobacco Use Types Packs/Day Years Used Date Smoking Tobacco: Never Smokeless Tobacco: Never Tobacco Cessation:Counseling Given: Not Answered Comments:I have never used tobacco. Alcohol Use Standard Drinks/Week Comments Never 0 (1 standard drink = 0.6 oz pur e alcohol) [facility] Utilities Answer Date Recorded In the past 12 months has th e [employer], [employer], oil, or water [employer] threatened to shut off services in your [...] often do you attend chur ch or voodoo services? Never 06/04/2022 Do you belong to any clubs o r organizations such as zoroastrianism groups, unions, fraternal or athletic groups, or [...] care, and heating? Not very hard 06/04/2022 [facility] [place] of Occupat ional Health - Occupational [...] your living situation today? I have a [facility] place to live 11/08/2023 Education Answer Date Recorded What is the highest level of school you have completed or the highest degree you have received? Master's degree (e.g., MA, MS, Milly, MEd, MANAGER INVENTORY CONTROL, MADELYN) 06/04/2022 Sex and Gender Information Value [...] CDT Oxygen Saturation 96% 10/18/2023 3:45 PM CAR SALES CONSULTANT Inhaled Oxygen Concentration - - Weight 69.7 kg (153 lb 10.6 oz) 024 12:54 PM CDT Height 173 cm (5' 8.11) 10/17/2023 12: 17 PM CAR SALES CONSULTANT Body Mass Index 23.29 10/17/2023 12:17 PM CAR SALES CONSULTANT Plan of Treatment Upcoming Encounters Date Type Department Care Team (Latest Contact Info) Description 04/30/2024 1:00 PM CDT Infusion Department of Infusion Therapy in [place], [place] [facility] [address] [place] [address] Mehreen Landis M.D. 05/11/2024 1:00 PM CDT Clinical Communication Virtual Review in [place], [place] [address] [place] [address] 05/13/2024 11:30 AM CDT Appointment Department of Radiology, [facility], in [address] [address] Radha Keen APRN, C.N.P., M.S.N. [address] [place] [phone] 05/13/2024 2:30 PM CDT Office Visit Division of Thoracic Surgery in [place], [place] [address] [place] [phone] Radha Keen APRN, C.N.P., M.S.N. [address] [place] [phone] 05/28/2024 1:15 PM CDT Infusion Department of Infusion Therapy in [place], [place] [address] [place] [phone] Mehreen Landis M.D. 06/11/2024 1:00 PM CDT Clinical Communication Virtual Review in [place], [place] [address] [place] [phone] 06/15/2024 1:30 PM CDT Office Visit Division of Allergic Diseases in [place], [place] [address] [place] [phone] Brayan Swain M.D., M.S. [address] [place] [phone] 06/22/2024 12:30 PM CDT Clinical Communication Virtual Review in [place], [place] [address] [place] [phone] 06/23/2024 1:30 PM CDT Comprehensive Visit [facility] in [place], [place] [address] [place] [phone] Ada Day APRN, C.N.P., D.N.P. [address] [place] [phone] 06/25/2024 12:30 PM CDT Appointment Department of Laboratory Medicine and Pathology, [facility], in [place], [place] [address] [place] [address] Mehreen Landis M.D. 06/25/2024 1:15 PM CDT Infusion Department of Infusion Therapy in [place], [place] [address] [place] [phone] Mehreen Landis M.D. Medical Devices Implanted Type Area Feller Operator Device Identifier Shelf Expiration Date Model / Serial / Lot Wax Bn Nblbl 2.5gr - [id number] Implanted:Qty : 1 on 08/22/2022 by Lázaro Claudio M.D., Ph.D. at [facility] Hardware e.g. pins/screws/r ods [employer] 901 / / Clp Hrzn Ti 6 Clp Lg Orng - [id number] Implanted:Qty : 1 on 08/22/2022 by Lázaro Claudio M.D., Ph.D. at [facility] Hardware e.g. pins/screws/r ods [employer] [id number] 04/16/2027 [id number] / / [id number] Clp Hrzn Ti 24 Clp Nima - [id number] Implanted:Qty : 1 on 08/22/2022 by Lázaro Claudio M.D., Ph.D. at [facility] Hardware e.g. pins/screws/r ods [employer] [id number] 04/16/2027 [id number] / / [id number] Clp Hrzn Ti 6 Clp Lg Orng - [id number] Implanted:Qty : 1 on 08/22/2022 by Lázaro Claudio M.D., Ph.D. at [facility] Hardware e.g. pins/screws/r ods [employer] [id number] 04/16/2027 [id number] / / [id number] Clp Hrzn Ti 6 Clp Nima - [id number] Implanted:Qty : 1 on 08/22/2022 by Lázaro Claudio M.D., Ph.D. at [facility] Hardware e.g. pins/screws/r ods Right: Chest [employer] [id number] 01/07/2027 [id number] / / [id number] Clp Hrzn Ti 6 Clp Nima - [id number] Implanted:Qty : 1 on 08/22/2022 by Lázaro Claudio M.D., Ph.D. at [facility] Hardware e.g. pins/screws/r ods Right: Chest [employer] [id number] 01/07/2027 [id number] / / [id number] Clp Hrzn Ti 6 Clp Lg Orng - [id number] Implanted:Qty : 1 on 08/22/2022 by Lázaro Claudio M.D., Ph.D. at [facility] Hardware e.g. pins/screws/r ods Right: Chest [employer] [id number] 02/19/2027 [id number] / / [id number] Clp Hrzn Ti 6 Clp Nima - [id number] Implanted:Qty : 1 on 08/22/2022 by Lázaro Claudio M.D., Ph.D. at [facility] Hardware e.g. pins/screws/r ods Right: Chest [employer] [id number] 01/07/2027 [id number] / / [id number] Clp Hrzn Ti 6 Clp Nima - [id number] Implanted:Qty : 1 on 08/22/2022 by Lázaro Claudio M.D., Ph.D. at [facility] Hardware e.g. pins/screws/r ods Right: Chest [employer] [id number] 04/09/2027 [id number] / / [id number] Clp Hrzn Ti 24 Clp Nima - [id number] Implanted:Qty : 1 on 08/22/2022 by Lázaro Claudio M.D., Ph.D. at [facility] Hardware e.g. pins/screws/r ods Right: Chest [employer] [id number] 04/16/2027 [id number] / / [id number] Clp Hrzn Ti 24 Clp Nima - [id number] Implanted:Qty : 1 on 08/22/2022 by Lázaro Claudio M.D., Ph.D. at [facility] Hardware e.g. pins/screws/r ods Right: Chest [employer] [id number] 04/16/2027 [id number] / / [id number] Ocular Lens Ocular Lens Eye Orthopedic [...] of2 resultswithin the time period is included. Immunoglobulin G (IgG), S 711(L) 767 - 1590 mg/dL 04/03/2024 9:51 AM CDT [facility] Blood (Blood, Venous) 04/02/2024 12:31 PM CDT 04/03/2024 6:22 AM CDT Mehreen Landis M.D. LAB BLOOD ADD-ON [facility] [address] [place] [address] [facility] [address] [place] [address] * Pulmonary Function Tests (03/31/2024 2:04 PM CDT) PostFVC 3.33 L 03/31/2024 4:43 PM CDT [facility] [address] PostFEV1 2.66 L 03/31/2024 4:43 PM CDT [facility] SU[facility] FEV1/FVC POST 80.11 % 03/31/2024 4:43 PM CDT [facility] SU[facility] FEF 25-75 % POST 2.43 L/s 03/31/2024 4:43 PM CDT [facility] [address] PEF POST 6.56 L/s 03/31/2024 4:43 PM CDT [facility] SU[facility] PIF POST 4.58 L/s 03/31/2024 4:43 PM CDT [facility] [address] FEF 50 % FIF 50 POST 67.79 % 03/31/2024 4:43 PM CDT [facility] SU[facility] FET POST 4.21 sec 03/31/2024 4:43 PM CDT [facility] SU[facility] DLCO 13.43 ml/(min*mm Hg) 03/31/2024 4:43 PM CDT [facility] SU[facility] VA 4.56 L 03/31/2024 4:43 PM CDT [facility] SU[facility] PulseRest 79.00 1/min 03/31/2024 4:43 PM CDT [facility] [address] O5OrwXlrc 97.00 % 03/31/2024 4:43 PM CDT [facility] SUITE PulseExer 96.00 1/min 03/31/2024 4:43 PM CDT [facility] SU[facility] EXER TIME 3.00 min 03/31/2024 4:43 PM CDT [facility] SU[facility] STEP HEIGHT PRE 9.00 Inch 03/31/2024 4:43 PM CDT [facility] SU[facility] TLC 5.84 L 03/31/2024 4:43 PM CDT [facility] [address] FRCPLETH PROVBASE 4.06 L 03/31/2024 4:43 PM CDT [facility] SU[facility] RV 2.56 L 03/31/2024 4:43 PM CDT [facility] RV % TLC PRE 43.85 % 03/31/2024 4:43 PM CDT [facility] FVC 3.28 L 03/31/2024 4:43 PM CDT [facility] FEV1 2.48 L 03/31/2024 4:43 PM CDT [facility] FEV1/FVC 75.78 % 03/31/2024 4:43 PM CDT [facility] DTP02-07% 1.96 L/s 03/31/2024 4:43 PM CDT [facility] PEF PRE 6.44 L/s 03/31/2024 4:43 PM CDT [facility] PIF PRE 3.86 L/s 03/31/2024 4:43 PM CDT [facility] FEF 50 % FIF 50 PRE 84.44 % 03/31/2024 4:43 PM CDT [facility] FET PRE 6.10 sec 03/31/2024 4:43 PM CDT [facility] SUBSTANCE POST Albuterol 03/31/2024 4:43 PM CDT [facility] 03/31/2024 2:04 PM CDT Impressions [facility] - 03/31/2024 4:43 PM CDT Abnormal. Diffusing [...] increased. Brayan Swain M.D., M.S. PFT ORDERABLES LUCAN SENTRY [address] * (ABNORMAL) Quantitative Lymphocyte Subsets: T, B, and Natural Killer (NK) (02/24/2024 3:57 PM CDT) CD45 Total Lymph Count 0.66(L) 0.82 - 2.84 thou/[facility] 02/24/2024 11:19 PM CDT [facility] % CD3 (T Cells) 92(H) 58 - 86 % 11:19 PM CDT [facility] CD3 (T Cells) 610 550 - 2202 cells/[facility] 02/24/2024 11:19 PM CDT [facility] % CD4 (T Cells) 43 32 - 64 % 11:19 PM CDT [facility] CD4 (T Cells) 287(L) 365 - 1437 cells/[facility] 02/24/2024 11:19 PM CDT [facility] % CD8 (T Cells) 44(H) 8 - 40 % 11:19 PM CDT [facility] CD8 T Cells 295 80 - 846 cells/[facility] 02/24/2024 11:19 PM CDT [facility] % CD19 (B Cells) 0(L) 3 - 24 % 02/24/20 24 11:19 PM CDT [facility] CD19 (B Cells) 0(L) 45 - 409 cells/mcL 02/24/2024 11:19 PM CDT [facility] % CD16+CD56 (NK cells) 8 5 - 28 % 02/24/2024 11:19 PM CDT [facility] CD16+CD56 (NK cells) 53(L) 59 - 513 cells/mcL 02/24/2024 11:19 PM CDT [facility] 4/8 Ratio 1.0 >=0.9 02/24/2024 11:19 PM CDT [facility] Comment: ----ADDITIONAL INFORMATION---- This test was developed using an analyte specific reagent. Its performance characteristics were determined by [facility] in a manner consistent with CLIA requirements. This test has not been cleared or approved by the U.S. Food and Drug Administration. Blood (Blood, Venous) 02/24/2024 3:57 PM CDT 02/24/2024 5:53 PM CDT Brayan Swain M.D., M.S. LAB BLOOD ADD-ON Performing Organization Address [facility] Co de Phone Number [facility] [address] [place] [address] [facility] [address] [place] [address] [place] [address] * 25-Hydroxyvitamin D2 and D3 (02/24/2024 3:57 PM CDT) 25-Hydroxy D2 <4.0 ng/mL 02/26/2024 3:30 PM CDT [facility] 25-Hydroxy D3 78 ng/mL 02/26/2024 3:30 PM CDT [facility] 25-Hydroxy D Total 78 ng/mL 2023 3:30 PM CDT [facility] Comment: Interpretation: 51-80 ng/mL (increased risk of hypercalciuria) ----REFERENCE VALUE---- 25-HYDROXY D TOTAL (D2+D3) Optimum levels in the healthy population are 20-50. ----ADDITIONAL INFORMATION---- This test was developed and its performance characteristics determined by [facility] in a manner consistent with CLIA requirements. This test has not been cleared or approved by the U.S. Food and Drug Administration. Blood (Blood, Venous) 02/24/2024 3:57 PM CDT 02/25/2024 7:28 AM CDT Brayan Swain M.D., M.S. LAB BLOOD ADD-ON Performing Organization Address [facility] Co de Phone Number [facility] [address] [place] [address] [facility] [address] [place] [address] [place] [address] * (ABNORMAL) CBC with Differential, Blood (02/24/2024 3:57 PM CDT) Hemoglobin 11.8 11.6 - 15.0 g/dL 02/24/2024 [...] - 6.45 x10(9)/L 02/24/2024 9:00 PM CDT [facility] Comment:Rechecked Lymphocytes 0.69(L) 0.95 - 3.07 [...] Brayan Swain M.D., M.S. LAB BLOOD ADD-ON [facility] [address] [place] [address], [facility] DTL [facility] [address] [place] [address] [facility] [address] [place] [address] * (ABNORMAL) Immunoglobulins (IgG, IgA, and IgM) (02/24/2024 3:57 PM CDT) [facility] Immunoglobulin A (IgA), S 12(L) 61 - 356 mg/dL 02/25/2024 9:25 AM CDT [facility] Immunoglobulin M (IgM), S <5(L) 37 - 286 mg/dL 02/25/2024 9:25 AM CDT [facility] Immunoglobulin G (IgG), S 842 767 - 1590 mg/dL 02/25/2024 8:49 AM CDT [facility] Blood (Blood, Venous) 02/24/2024 3:57 PM CDT 02/25/2024 6:40 AM CDT Brayan Swain M.D., M.S. LAB BLOOD ADD-ON Performing Organization Address City/[facility]/ZIP Co de Phone Number [facility] [address] [place] [address] [facility] [address] [place] [address] * Ferritin (02/24/2024 3:57 PM CDT) Ferritin, S 21 11 - 328 mcg/L 02/24/2024 4:54 PM CDT DTL Blood (Blood, Venous) 02/24/2024 3:57 PM CDT 02/24/2024 4:31 PM CDT Brayan Swain M.D., M.S. LAB BLOOD ADD-ON Performing Organization Address City/[facility]/ZIP Co de Phone Number [facility] [address] [place] [address], [facility] DTL [facility] [address] [place] [address] * (ABNORMAL) Comprehensive Metabolic Panel (02/24/2024 3:57 [...] Brayan Swain M.D., M.S. LAB BLOOD ADD-ON [facility] [address] [place] [address], [place] DTL [facility] [address] [place] [address] from Last 3 Months Advance Directives For more information, please contact: [phone] Documents on File Type Date Recorded Patient Topstitcher Zigzag Expl anation Advance Directives 08/22/2022 9:15 AM Rea castroAbraham PhillipsAlex Irvin Jacqueline HCPOA/ADVOCATE/AGENT/R EPRESENTATIVE/SURROGAT E * Full Code (Latest [...] Communication Rea Sousa Sister Health Care Agent [email or web address] Abraham Jacqueline Brother Health Care Agent [email or web address] Alex Albaro Phillips Brother First Altern ate Health Care Agent Care Teams Nursing Clerk Relationship Specialty Start Date End Date Elsewhere, Pcp PCP - General 11/07/23
--- OUTSIDE RECORDS SUMMARY | 2024-04-10 02:22 | XMS_ITS ---
Author Organization [facility] Address [address] [place] [address] Care Team Providers Care Product Control And Logistics Analyst Name Role Phone Unavailable Unavailable Unavailable Surgery Details Not on file Complications Check Surgery Details section. Procedure Estimated Blood Loss Check Surgery Details section. Procedure Findings Check Surgery Details section. Procedure Specimens Taken Check Surgery Details section.
--- OUTSIDE RECORDS SUMMARY | 2024-04-10 02:22 | XMS_ITS | Encounter Summary ---
Author Organization [facility] Address [address] [place] [address] Care Team Providers Care Medical Staff Assistant Name Role Phone Elsewhere, Pcp Primary Care Provider Unavailabl e Encounter Details Date Type Department Care Team (Latest Contact Info) Description 02/24/2024 3:40 PM CDT - 02/24/2024 11:59 PM CDT Hospital Encounter Department of Laboratory Medicine and Pathology, [facility], in [place], [place] [address] [place] [address] Brayan Swain M.D., M.S. [address] [place] [address] Immunodeficiency (HCC) Discharge Disposition: Home or Self Care Social History Tobacco Use Types Packs/Day Years Used Date Smoking Tobacco: Never Smokeless Tobacco: Never Comments:I have never used t obacco. Alcohol Use Standard Drinks/Week Comments Never 0 (1 standard drink = 0.6 oz pur e alcohol) [facility] Utilities Answer Date Recorded In the past 12 months has th e electric, gas, oil, or water [employer] threatened to shut off services in your [...] often do you attend chur ch or jewish services? Never 06/04/2022 Do you belong to any clubs o r organizations such as hoahaoism groups, unions, fraternal or athletic groups, or [...] care, and heating? Not very hard 06/04/2022 [facility] [place] of Occupat ional Health - Occupational Stress [...] your living situation today? I [facility] a [facility] to live 11/08/2023 Education Answer Date Recorded What is the highest level of school you have completed or the highest degree you have received? Master's degree (e.g., MA, MS, Milly, MEd, ALUMINUM MOLDING MACHINE OPERATOR, MADELYN) 06/04/2022 Sex and Gender [...] do not swallow. 100 mL 2 10/18/2023 meaqzxgszqra-ojifkehv-wk tein (CENTURY MATURE) tablet Take 1 tablet by mouth daily. omeprazole (PriLOSEC) [address] capsule Take 20 mg by mouth every morning before breakfast. 03/27/2023 sulfamethoxazole-trimeth oprim (Bactrim DS) 800-160 mg per tabletIndications:Prophy laxis, medical Take 1 tablet by mouth daily Indications: Prophylaxis, medical. 90 tablet 10/19/2023 valACYclovir (VALTREX) 500 mg tablet Take 1 tablet (500 mg total) by mouth 2 (two) times a day. 180 tablet 10/27/2023 zinc sulfate (ZINCATE) 220 (50 mg zinc) capsule Take 220 mg by mouth. documented as of this encounter Plan of Treatment Upcoming Encounters Date Type Department Care Team (Latest Contact Info) Description 04/30/2024 1:00 PM CDT Infusion Department of Infusion Therapy in [address] [place] [address] Mehreen Landis M.D. 05/11/2024 1:00 PM CDT Clinical Communication Virtual Review in [place], [place] [address] [place] [address] 05/13/2024 11:30 AM CDT Appointment Department of Radiology, [facility], in [place], [place] [address] [place] [phone] Radha Keen APRN, C.NLuz Maria, M.S.N. [address] [place] [phone] 05/13/2024 2:30 PM CDT Office Visit Division of Thoracic Surgery in [place], [place] [address] [place] [phone] Radha Keen APRN, C.NCasandra., M.S.N. [address] [place] [phone] 05/28/2024 1:15 PM CDT Infusion Department of Infusion Therapy in [place], [place] [address] [place] [address] Mehreen Landis M.D. 06/11/2024 1:00 PM CDT Clinical Communication Virtual Review in [place], [place] [address] [place] [address] 06/15/2024 1:30 PM CDT Office Visit Division of Allergic Diseases in [place], [place] [address] [place] [phone] Brayan Swain M.D., M.S. [address] [place] [phone] 06/22/2024 12:30 PM CDT Clinical Communication Virtual Review in [place], [place] [address] [place] [address] 06/23/2024 1:30 PM CDT Comprehensive Visit [facility] in [place], [place] [address] [place] [address] Ada Day APRN, C.N.P., D.N.P. [address] [place] [address] 06/25/2024 12:30 PM CDT Appointment Department of Laboratory Medicine and Pathology, [facility], in [place], [place] [address] [place] [phone] Mehreen Landis M.D. 06/25/2024 1:15 PM CDT Infusion Department of Infusion Therapy in [place], [place] [address] [place] [phone] Mehreen Landis M.D. documented as of this encounter Procedures Procedure Name Priority Date/Time Associated Diagnosis Comments QN LYMPHOCYTE SUBSETS: T, B, AND NK, B Routine 02/24/2024 3:57 PM CDT Immunodeficiency (HCC) 25-HYDROXYVITAMIN D2 AND D3, S Routine 02/24/2024 3:57 PM CDT Immunodeficiency (HCC) CBC WITH DIFFERENTIAL, B Routine 02/24/2024 3:57 PM CDT Immunodeficiency (HCC) IMMUNOGLOBULINS (IGG, IGA, AND IGM), S Routine 02/24/2024 3:57 PM CDT Immunodeficiency (HCC) FERRITIN, S Routine 02/24/2024 3:57 PM CDT Immunodeficiency (HCC) COMPREHENSIVE METABOLIC PANEL, S/P Routine 02/24/2024 3:57 PM CDT Immunodeficiency (HCC) documented in this encounter Results * 25-Hydroxyvitamin D2 and D3 (02/24/2024 3:57 PM CDT) 25-Hydroxy D2 <4.0 ng/mL 02/26/2024 3:30 PM CDT [facility] 25-Hydroxy D3 78 ng/mL 02/26/2024 3:30 PM CDT [facility] 25-Hydroxy D Total 78 ng/mL 2023 3:30 PM CDT [facility] Comment: Interpretation: 51-80 ng/mL (increased risk of hypercalciuria) ----REFERENCE VALUE---- 25-HYDROXY D TOTAL (D2+D3) Optimum levels in the healthy population are 20-50. ----ADDITIONAL INFORMATION---- This test was developed and its performance characteristics determined by [facility] in a manner consistent with CLIA requirements. This test has not been cleared or approved by the U.S. Food and Drug Administration. Blood (Blood, Venous) 02/24/2024 3:57 PM CDT 02/25/2024 7:28 AM CDT Brayan Swain M.D., M.S. LAB BLOOD ADD-ON [facility] [address] [place] [address] [facility] [address] [place] [facility] [place] [address] * (ABNORMAL) Quantitative Lymphocyte Subsets: T, B, and Natural Killer (NK) (02/24/2024 3:57 PM CDT) CD45 Total Lymph Count 0.66(L) 0.82 - 2.84 thou/mcL 02/24/2024 11:19 PM CDT [facility] % CD3 (T Cells) 92(H) 58 - 86 % 4 11:19 PM CDT [facility] CD3 (T Cells) 610 550 - 2202 cells/mcL 02/24/2024 11:19 PM CDT [facility] % CD4 (T Cells) 43 32 - 64 % 11:19 PM CDT [facility] CD4 (T Cells) 287(L) 365 - 1437 cells/mcL 02/24/2024 11:19 PM CDT [facility] % CD8 (T Cells) 44(H) 8 - 40 % 4 11:19 PM CDT [facility] CD8 T Cells 295 80 - 846 cells/mcL 02/24/2024 11:19 PM CDT [facility]SC % CD19 [...] reagent. Its performance characteristics were determined by [facility] in a manner consistent with CLIA requirements. This test has not been cleared or approved by the U.S. Food and Drug Administration. Blood (Blood, Venous) 02/24/2024 3:57 PM CDT 02/24/2024 5:53 PM CDT Brayan Swain M.D., M.S. LAB BLOOD ADD-ON [facility] [address] [place] [address] [facility] [address] [place] [address] [place] [address] [place] [address] * (ABNORMAL) Immunoglobulins (IgG, IgA, and IgM) [...] M.S. LAB BLOOD ADD-ON Performing Organization Address City/[facility]/ZIP Co de Phone Number [facility] [address] [place] [address] [facility] [address] [place] [address] * Ferritin (02/24/2024 3:57 PM CDT) [facility] Ferritin, S 21 11 - 328 mcg/L 02/24/2024 4:54 PM CDT DTL Blood (Blood, Venous) 02/24/2024 3:57 PM CDT 02/24/2024 4:31 PM CDT Brayan Swain M.D., M.S. LAB BLOOD ADD-ON Performing Organization Address [facility] Co de Phone Number [facility] [address] [place] [address], [facility] [address] [place] [address] * (ABNORMAL) CBC with Differential, Blood (02/24/2024 3:57 PM CDT) [facility] Hemoglobin 11.8 11.6 - 15.0 g/dL [...] - 6.45 x10(9)/L 02/24/2024 9:00 PM CDT [facility] Comment:Rechecked Lymphocytes 0.69(L) 0.95 - 3.07 x10(9)/L 02/24/2024 9:00 PM CDT DTL Monocytes 0.36 0.26 - 0.81 x10(9)/L 02/24/2024 9:00 PM CDT DTL Eosinophils <0.03 0.03 - 0.48 x10(9)/L 02/24/2024 9:00 PM CDT DTL Basophils <0.03 0.01 - 0.08 x10(9)/L 02/24/2024 9:00 PM CDT DTL Blood (Blood, Venous) 02/24/2024 3:57 PM CDT 02/24/2024 4:17 PM CDT Brayan Swain M.D., M.S. LAB BLOOD ADD-ON [facility] [address] [place] [address], [facility] DTL [facility] [address] 200 [place] [address] * (ABNORMAL) Comprehensive Metabolic Panel (02/24/2024 3:57 PM CDT) [facility] Potassium, S 4.7 3.6 - 5.2 mmol/L [...] Brayan Swain M.D., M.S. LAB BLOOD ADD-ON [facility] [address] [place] [address], [facility] DTL [facility] [address] [place] [address] documented in this encounter Visit Diagnoses Diagnosis Immunodeficiency (HCC) documented in this encounter Care Teams Medical Staff Assistant Relationship Specialty Start Date End Date Elsewhere, Pcp PCP - General 11/07/23 documented as of this encounter
--- OUTSIDE RECORDS SUMMARY | 2024-04-10 02:22 | XMS_ITS | Encounter Summary ---
Author Organization [facility] Address [address] [place] [address] Care Team Providers Care Brick Setter Operator Name Role Phone Elsewhere, Pcp Primary Care Provider Unavailabl e Reason for Visit * Reason Comments Outpatient Infusion * Episode Based Medications (Routine) - Authorized Specialty Diagnoses / Procedures Referred By Contac t Referred To Contact Diagnoses Hypogammaglobulinemia (HCC) Other Combined Immunodeficiencies (HCC) Procedures [place] GAMMAGARD LIQUID INJ Mehreen Landis M.D. [address] [place] [address] [place] [address] Referral ID Status Reason Start Date Expiration Date V isits Requested Visits Authorized [id number] Authorized 10/17/2023 08/25/2024 12 12 Encounter Details Date Type Department Care Team (Latest Contact Info) Description 03/05/2024 1:15 PM CDT Infusion Department of Infusion Therapy in [place], [place] [address] [place] [phone] Mehreen Landis M.D. Hypogammaglobulinemia (HCC) (Primary Dx); Other Combined Immunodeficiencies (HCC) Social History Tobacco Use Types Packs/Day Years Used Date Smoking Tobacco: Never Smokeless Tobacco: Never Tobacco Cessation:Counseling Given: Not Answered Comments:I have never used tobacco. Alcohol Use Standard Drinks/Week Comments Never 0 (1 standard drink = 0.6 oz pur e alcohol) [facility] Utilities Answer Date Recorded In the past 12 months has e [employer], gas, oil, or water company threatened to [...] declined 06/04/2022 How often do you attend [facility] or congregation services? Never 06/04/2022 Do [...] care, and heating? Not very hard 06/04/2022 [facility] - Occupational Stress Questionnaire Answer [...] Master's degree (e.g., MA, MS, Milly, MEd, BRICK MAKER, MADELYN) 06/04/2022 Sex and Gender Information Value Date Recorded Sex Assigned at Female 06/04/2022 4:58 PM CDT Gender Identity Female 06/04/2022 4:58 PM CDT Sexual Orientation Straight 06/04/2022 4: 58 PM CDT documented as of this encounter Last Filed Vital Signs Vital Sign Reading Time Taken Comments Blood Pressure 115/53 03/05/2024 4:52 PM CDT Pulse 67 03/05/2024 4:52 PM CDT Temperature 36.8 ??C (98.2 ??F) 03/05/2024 4:52 PM CD T Respiratory Rate 18 03/05/2024 4:52 PM CDT Oxygen Saturation - - Inhaled Oxygen Concentration - - Weight 69.4 kg (153 lb) 03/05/2024 1:20 PM CDT Height - - Body Mass Index 23.19 10/17/2023 12:17 PM PLACEMENT DIRECTOR documented in this encounter Plan of Treatment Upcoming Encounters Date Type Department Care Team (Latest Contact Info) Description 04/30/2024 1:00 PM CDT Infusion Department of Infusion Therapy in [address] [place] [address] Mehreen Landis M.D. 05/11/2024 1:00 PM CDT Clinical Communication Virtual Review in [place], [place] 200 [place] [address] 05/13/2024 11:30 AM CDT Appointment Department of Radiology, [facility], in [place], [place] [address] [place] [phone] Radha Keen APRN, C.N.P., M.S.N. [address] [place] [phone] 05/13/2024 2:30 PM CDT Office Visit Division of Thoracic Surgery in [place], [place] [address] [place] [phone] Radha Keen APRN, C.N.P., M.S.N. [address] [place] [phone] 05/28/2024 1:15 PM CDT Infusion Department of Infusion Therapy in [place], [place] [address] [address] [place] [phone] Mehreen Landis M.D. 06/11/2024 1:00 PM CDT Clinical Communication Virtual Review in [place], [place] 200 [place] [address] 06/15/2024 1:30 PM CDT Office Visit Division of Allergic Diseases in [place], [place] [address] [place] [phone] Brayan Swain M.D., M.S. [address] [place] [phone] 06/22/2024 12:30 PM CDT Clinical Communication Virtual Review in [place], [place] 200 [place] [address] 06/23/2024 1:30 PM CDT Comprehensive Visit [facility] in [place], [place] [address] [place] [phone] Ada Day, CICI, C.N.P., D.N.P. [address] [place] [phone] 06/25/2024 12:30 PM CDT Appointment Department of Laboratory Medicine and Pathology, [facility], in [place], [place] [address] [address] [place] [phone] Mehreen Landis M.D. 06/25/2024 1:15 PM CDT Infusion Department of Infusion Therapy in [place], [place] [address] [place] [phone] Mehreen Landis M.D. documented as of this encounter Visit Diagnoses Diagnosis Hypogammaglobulinemia (HCC)- Primary Other Combined Immunodeficiencies (HCC) documented in this encounter Administered Medications Inactive Administered Medications - up to 3 most recent administrations Medication Order MAR Action Action Date Dose Rate Site immune globulin (human) 10 % infusion 35 g (Gammagard) 35 g, intravenous, Once, On Christina 03/05/24 at 1345, For 1 dose, Pump programming: Use same weight used in dosing calculation- See Ordered Dose weight above. If no weight indicated: Calculate dose based on [place] Body Weight (IBW). If Actual Body Weight [...] Indications: primary immune deficiency disorder Rate/Dose Change 03/05/2024 2:50 PM CDT 128 mL/hr Rate/Dose Change 03/05/2024 2:13 PM CDT 64.2 mL /hr New Bag 03/05/2024 1:39 PM CDT 35 g 32.1 mL/hr documented in this encounter Care Teams Brick Setter Operator Relationship Specialty Start Date End Date Elsewhere, Pcp PCP - General 11/07/23 documented as of this encounter
--- OUTSIDE RECORDS SUMMARY | 2024-04-10 02:23 | XMS_ITS | Clinical Summary ---
Author Organization [facility] Address [place], [place] [address] Care Team Providers Care Manual Plate Filler Name Role Phone Chitra Bruno MD Primary [...] needed for Shortness Of Breath or Wheezing. Active estradioL (ESTRACE) 0.5 mg tablet Take 0.5 mg by mouth once daily. Active omeprazole (PRILOSEC) 20 mg Delayed-Release capsule Take 20 mg by mouth once daily before a meal. Active multivitamin (MVI) tablet Take 1 Tablet by mouth once daily. Active ascorbic acid, vitamin C, (Vitamin C) 1,000 mg tablet Take 1,000 mg by mouth once daily. Active cholecalciferol, Vitamin D3, (Vitamin D-3) 2,000 unit tablet Take 2,000 units by mouth once daily. Active glucosamine-chondroit in, 500-400mg, (COSAMIN DS) 500-400 mg tablet Take 1 Tablet by mouth three times daily. Active zinc sulfate 50 mg zinc (220 mg) capsule Take 220 mg by mouth. every 3 days Active Active Problems Problem Noted Date Diagnosed Date Pneumonia due to COVID-19 virus 09/21/2023 Osteopenia 09/05/2010 Immunizations Name Administration Dates Next [...] Comments Blood Pressure 137/79 10/02/2023 6:30 PM FLOTATION TENDER Pulse 84 10/02/2023 6:30 PM FLOTATION TENDER Temperature 36.7 ??C (98.1 ??F) 10/02/2023 6:30 PM CS T Respiratory Rate 18 10/02/2023 6:30 PM FLOTATION TENDER Oxygen Saturation 95% 10/02/2023 6:30 PM FLOTATION TENDER Inhaled Oxygen Concentration - - Weight 63 kg (139 lb) 09/21/2023 5:30 PM FLOTATION TENDER Height 172.7 cm (5' 8) 09/21/2023 6:36 PM FLOTATION TENDER Body Mass Index 21.13 09/21/2023 5:30 PM FLOTATION TENDER Plan of Treatment Health Maintenance Due Date [...] - PCV) 2017 Tetanus booster 09/05/2020 09/05/2010 COVID-19 vaccine series (5 - 2022-24 season) 2023 07/23/2023, 03/05/2023, 08/07/2022, Additional history exists Influenza for age 65+ 04/26/2024 09/05/2010 Tdap Completed 09/05/2010 Procedures Procedure Name Priority Date/Time Associated Diagnosis Comments XR FFDM MAMMO UNI ADDL VIEWS LEFT (IA) Routine 09/21/2010 3:23 PM FLOTATION TENDER Abnormal mammogram XR DXA BONE DENSITY 2 SITES AXIAL Routine 09/12/2010 3:26 PM FLOTATION TENDER Osteopenia from Last 3 Months or Most Recently Relevant to Health Maintenance Results * XR FFDM MAMMO UNI ADDL VIEWS LEFT (09/21/2010 3:23 PM FLOTATION TENDER) Anatomical Region Laterality Modality BREASTS, Breast Left Left Mammography Impressions 09/22/2010 8:59 AM FLOTATION TENDER ACR 0 Incomplete: Need Additional Imaging Evaluation and/or Prior Mammograms for Comparison. RECOMMENDATION: ??Left breast ultrasound. Narrative 09/22/2010 8:59 AM FLOTATION TENDER UNILATERAL LEFT BREAST FULL-FIELD DIGITAL MAMMOGRAM - ADDITIONAL VIEWS CLINICAL HISTORY: Abnormal mammogram. COMPARISON: Comparison made to the screening examination of 09/05/2010. FINDINGS: The asymmetric density at the 12:00 position of the left breast is again noted and probably represents asymmetric breast tissue but ultrasound will be performed for further evaluation. No suspicious clustered microcalcifications or architectural distortion is seen. Procedure Note Christian Bettencourt, - 09/22/2010 UNILATERAL LEFT BREAST FULL-FIELD DIGITAL MAMMOGRAM - ADDITIONAL VIEWS CLINICAL HISTORY: Abnormal mammogram. COMPARISON: Comparison made to the screening examination of 09/05/2010. FINDINGS: The asymmetric density at the 12:00 position of the left breastis again noted and probably represents asymmetric breast tissue butultrasound will be performed for further evaluation. No suspiciousclustered microcalcifications or architectural distortion is seen. IMPRESSION: ACR 0 Incomplete: Need Additional Imaging Evaluation and/orPrior Mammograms for Comparison. RECOMMENDATION: Left breast ultrasound. Chitra Bruno MD MAMMO * XR DEXA BONE DENSITY 2 SITES (09/12/2010 3:26 PM FLOTATION TENDER) Anatomical Region Laterality Modality Spine, HIPS, HIPL, HIPR Other Narrative 09/21/2010 11:34 AM FLOTATION TENDER Please see scanned document for results of this study. Procedure Note Dominic Ivette D - 09/21/2010 Please see scanned document for results of this study. Chitra Bruno MD DEXA from Last 3 Months or Most Recently Relevant to Health Maintenance Advance Directives * Full Code (Latest Code Status on File) Date Activated Date Inactivated Comments 09/21/2023 5:55 PM 10/02/2023 9:17 PM Question Answer Comments Code Status Discussion: Reviewed Preferences Care Teams Manual Plate Filler Relationship Specialty Start Date End Date [place] [address] PCP - General Family Practice 08/29/10
--- OUTSIDE RECORDS SUMMARY | 2024-04-10 02:23 | XMS_ITS | Encounter Summary ---
Author Organization [facility] Address [address] [place] [address] Care Team Providers Care Clerical Warehouseman Name Role Phone Elsewhere, Pcp Primary Care Provider Unavailabl e Reason for Visit * Reason Onset Date Comments Previsit Preparation 02/20/2024 Encounter Details Date Type Department Care Team (Latest Contact Info) Description 02/20/2024 11:00 AM CDT Clinical Communication Virtual Review in [place], [place] [address] [place] [address] Previsit Preparation Social History Tobacco Use Types Packs/Day Years Used Date Smoking Tobacco: Never Smokeless Tobacco: Never Tobacco Cessation:Counseling Given: Not Answered Comments:I have never used tobacco. Alcohol Use Standard Drinks/Week Comments Never 0 (1 standard drink = 0.6 oz pur e alcohol) [facility] Utilities Answer Date Recorded In the [...] care, and heating? Not very hard 06/04/2022 [facility] [place] of Occupat ional Health - Occupational Stress [...] your living situation today? I have a [facility] place to live 11/08/2023 Education Answer Date Recorded What is the highest level of school you have completed or the highest degree you have received? Master's degree (e.g., MA, MS, Milly, MEd, BLEND TECHNICIAN, MADELYN) 06/04/2022 Sex and Gender Information Value Date Recorded Sex Assigned at Female 06/04/2022 4:58 PM CDT Gender Identity Female 06/04/2022 4:58 PM CDT Sexual Orientation Straight 06/04/2022 4: 58 PM CDT documented as of this encounter Plan of Treatment Upcoming Encounters Date Type Department Care Team (Latest Contact Info) Description 04/30/2024 1:00 PM CDT Infusion Department of Infusion Therapy in [address] [place] [phone] Mehreen Landis M.D. 05/11/2024 1:00 PM CDT Clinical Communication Virtual Review in [place], [place] 200 [place] [address] 05/13/2024 11:30 AM CDT Appointment Department of Radiology, [facility], in [place], [place] [address] [place] [phone] Radha Keen APRN C.NYesikaP., M.S.N. [address] [place] [phone] 05/13/2024 2:30 PM CDT Office Visit Division of Thoracic Surgery in [place], [place] [address] [place] [phone] Radha Keen APRN, C.NCasandra., M.S.N. [address] [place] [phone] 05/28/2024 1:15 PM CDT Infusion Department of Infusion Therapy in [place], [place] [address] [place] [address] Mehreen Landis M.D. 06/11/2024 1:00 PM CDT Clinical Communication Virtual Review in [address] [phone] 06/15/2024 1:30 PM CDT Office Visit Division of Allergic Diseases in [place], [place] [address] [place] [phone] Brayan Swain M.D., M.S. [address] [place] [phone] 06/22/2024 12:30 PM CDT Clinical Communication Virtual Review in [place], [place] 200 [place] [address] 06/23/2024 1:30 PM CDT Comprehensive Visit [facility] in [place], [place] [address] [place] [phone] Ada Day APRN, C.NCasandra., AliciaN.P. [address] [place] [address] 06/25/2024 12:30 PM CDT Appointment Department of Laboratory Medicine and Pathology, [facility], in [place], [place] [facility] [address] [place] [phone] Mehreen Landis M.D. 06/25/2024 1:15 PM CDT Infusion Department of Infusion Therapy in [place], [place] [facility] [address] [place] [phone] Mehreen Landis M.D. documented as of this encounter Visit Diagnoses Not on filedocumented in this encounter Care Teams Clerical Warehouseman Relationship Specialty Start Date End Date Elsewhere, Pcp PCP - General 11/07/23 documented as of this encounter
--- OUTSIDE RECORDS SUMMARY | 2024-04-10 02:23 | XMS_ITS | Encounter Summary ---
Author Organization [facility] Address [address] [place] [address] Care Team Providers Care Credit Representative Name Role Phone Elsewhere, Pcp Primary Care Provider Unavailabl e Reason for Visit * Episode Based Medications (Routine) - Authorized Specialty Diagnoses / Procedures Referred By Contac t Referred To Contact Diagnoses Hypogammaglobulinemia (HCC) Other Combined Immunodeficiencies (HCC) Procedures PA GAMMAGARD LIQUID INJ Mehreen Landis M.D. Rst [address] [place] [address] [place] [address] Referral ID Status Reason Start Date Expiration Date V isits Requested Visits Authorized [id number] Authorized 10/17/2023 08/25/2024 12 12 Encounter Details Date Type Department Care Team (Latest Contact Info) Description 01/10/2024 12:26 PM CDT - 01/10/2024 11:59 PM CDT Hospital Encounter Department of Laboratory Medicine and Pathology, [facility], in [place], [place] [address] [place] [phone] Mehreen Landis M.D. Hypogammaglobulinemia (HCC); Other Combined Immunodeficiencies (HCC) Discharge Disposition: Home or Self Care Social History Tobacco Use Types Packs/Day Years Used Date Smoking Tobacco: Never Smokeless Tobacco: Never Comments:I have never used t obacco. Alcohol Use Standard Drinks/Week Comments Never 0 (1 standard drink = 0.6 oz pur e alcohol) [facility] Utilities Answer Date Recorded In the past 12 months has e [employer], [employer], oil, or water [employer] threatened to shut off services in [...] declined 06/04/2022 How often do you attend [facility] or judaism services? Never 06/04/2022 Do you belong to any clubs o r organizations such as denominational groups, unions, fraternal or athletic groups, or [...] care, and heating? Not very hard 06/04/2022 [facility] - Occupational Stress Questionnaire Answer Date [...] Master's degree (e.g., MA, MS, Milly, MEd, MAIL HANDLER, MADELYN) 06/04/2022 Sex and Gender Information Value [...] do not swallow. 100 mL 2 10/18/2023 aunmzxztmmqr-btsxxlyh-hg tein ([place] [employer]) tablet Take 1 tablet [...] CDT Infusion Department of Infusion Therapy in [place], [place] [address] [place] [address] Mehreen Landis M.D. 05/11/2024 1:00 PM CDT Clinical Communication Virtual Review in [address] [phone] 05/13/2024 11:30 AM CDT Appointment Department of Radiology, [facility], in [address] [phone] Radha Keen APRN, C.N.P., M.S.N. [address] [place] [phone] 05/13/2024 2:30 PM CDT Office Visit Division of Thoracic Surgery in [place], [place] [address] [place] [phone] Radha Keen APRN, C.N.P., M.S.N. [address] [place] [phone] 05/28/2024 1:15 PM CDT Infusion Department of Infusion Therapy in [place], [place] [address] [place] [address] Mehreen Landis M.D. 06/11/2024 1:00 PM CDT Clinical Communication Virtual Review in [address] [phone] 06/15/2024 1:30 PM CDT Office Visit Division of Allergic Diseases in [place], [place] [address] [place] [phone] Brayan Swain M.D., M.S. [address] [place] [phone] 06/22/2024 12:30 PM CDT Clinical Communication Virtual Review in [place], [place] 200 [place] [phone] 06/23/2024 1:30 PM CDT Comprehensive Visit [facility] in [place], [place] [address] [place] [phone] Ada Day APRN, C.N.P., D.N.P. [address] [place] [phone] 06/25/2024 12:30 PM CDT Appointment Department of Laboratory Medicine and Pathology, [facility], in [place], [place] [address] [facility] [address] [place] [address] Mehreen Landis M.D. 06/25/2024 1:15 PM CDT Infusion Department of Infusion Therapy in [place], [place] [address] [place] [address] Mehreen Landis M.D. documented as of this encounter Procedures Procedure Name Priority Date/Time Associated Diagnosis Comments IMMUNOGLOBULIN G (IGG), S Routine 01/10/2024 12:35 PM CDT Hypogammaglobulinemia (HCC) Other Combined Immunodeficiencies (HCC) documented in this encounter Results * (ABNORMAL) Immunoglobulin G (IgG) (01/10/2024 12:35 PM CDT) Immunoglobulin G (IgG), S 633(L) 767 - 1590 mg/dL 01/13/2024 7:[address] [facility] Blood (Blood, Venous) 01/10/2024 12:35 PM CDT 01/13/2024 6:45 AM CDT Mehreen Landis M.D. LAB BLOOD ADD-ON [facility] [address] [place] [address] [facility] [address] [place] [address] documented in this encounter Visit Diagnoses Diagnosis Hypogammaglobulinemia (HCC) Other Combined Immunodeficiencies (HCC) documented in this encounter Care Teams Credit Representative Relationship Specialty Start Date End Date Elsewhere, Pcp PCP - General 11/07/23 documented as of this encounter
--- OUTSIDE RECORDS SUMMARY | 2024-04-10 02:23 | XMS_ITS | Encounter Summary ---
Author Organization [facility] Address [address] [place] [address] Care Team Providers Care Mechanical Engineering Specialist Name Role Phone Elsewhere, Pcp Primary Care Provider Unavailabl e Reason for Visit * Reason Comments Outpatient Infusion IVIG * Episode Based Medications (Routine) - Authorized Specialty Diagnoses / Procedures Referred By Contac t Referred To Contact Diagnoses Hypogammaglobulinemia (HCC) Other Combined Immunodeficiencies (HCC) Procedures CT GAMMAGARD LIQUID INJ Mehreen Landis M.D. [address] [place] [address] [place] [address] Referral ID Status Reason Start Date Expiration Date V isits Requested Visits Authorized [id number] Authorized 10/17/2023 08/25/2024 12 12 Encounter Details Date Type Department Care Team (Latest Contact Info) Description 01/10/2024 1:15 PM CDT Infusion Department of Infusion Therapy in [place], [place] [address] [place] [phone] Mehreen Landis M.D. Other Combined Immunodeficiencies (HCC) (Primary Dx); Hypogammaglobulinemia (HCC) Discharge Disposition: Home or Self Care Social History Tobacco Use Types Packs/Day Years Used Date Smoking Tobacco: Never Smokeless Tobacco: Never Tobacco Cessation:Counseling Given: Not Answered Comments:I have never used tobacco. Alcohol Use Standard Drinks/Week Comments Never 0 (1 standard drink = 0.6 oz pur e alcohol) [facility] Utilities Answer Date Recorded In the past 12 months has e [employer], gas, oil, or water [employer] threatened to shut off services in your [...] declined 06/04/2022 How often do you attend [facility] or amish services? Never 06/04/2022 Do you [...] Not very hard 06/04/[address] [facility] - Occupational Stress Questionnaire Answer [...] Master's degree (e.g., MA, MS, Milly, MEd, CUSTOM FURRIER, MADELYN) 06/04/2022 Sex and Gender Information Value Date Recorded Sex Assigned at Female 06/04/2022 4:58 PM CDT Gender Identity Female 06/04/2022 4:58 PM CDT Sexual Orientation Straight 06/04/2022 4: 58 PM CDT documented as of this encounter Last Filed Vital Signs Vital Sign Reading Time Taken Comments Blood Pressure 118/62 01/10/2024 4:33 PM CDT Pulse 67 01/10/2024 4:33 PM CDT Temperature 36.6 ??C (97.9 ??F) 01/10/2024 3:31 PM CD T Respiratory Rate 18 01/10/2024 4:33 PM CDT Oxygen Saturation - - Inhaled Oxygen Concentration - - Weight 69 kg (152 lb 1.9 oz) 01/10/2024 1:12 PM CDT Height - - Body Mass Index 23.05 10/17/2023 12:17 PM 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 05/11/2024 1:00 PM CDT Clinical Communication Virtual Review in [place], [place] 200 [place] [address] 05/13/2024 11:30 AM CDT Appointment Department of Radiology, [facility], in [place], [place] [address] [place] [phone] Radha Keen APRN, C.N.P., M.S.N. [address] [place] [phone] 05/13/2024 2:30 PM CDT Office Visit Division of Thoracic Surgery in [place], [place] [address] [place] [phone] Radha Keen APRN, C.N.P., M.S.N. [address] [place] [phone] 05/28/2024 1:15 PM CDT Infusion Department of Infusion Therapy in [place], [place] [address] [place] [phone] Mehreen Landis M.D. 06/11/2024 1:00 PM CDT Clinical Communication Virtual Review in [place], [place] 200 [place] [address] 06/15/2024 1:30 PM CDT Office Visit Division of Allergic Diseases in [place], [place] [address] [place] [phone] Brayan Swain M.D., M.S. [address] [place] [phone] 06/22/2024 12:30 PM CDT Clinical Communication Virtual Review in [place], [place] 200 [place] [address] 06/23/2024 1:30 PM CDT Comprehensive Visit [facility] in [place], [place] [address] [place] [phone] Ada Day APRN, C.N.P., D.N.P. [address] [place] [phone] 06/25/2024 12:30 PM CDT Appointment Department of Laboratory Medicine and Pathology, [facility], in [place], [place] [facility] [address] [place] [phone] Mehreen Landis M.D. 06/25/2024 1:15 PM CDT Infusion Department of Infusion Therapy in [place], [place] [address] [place] [phone] Mehreen Landis M.D. documented as of this encounter Visit Diagnoses Diagnosis Other Combined Immunodeficiencies (HCC)- Primary Hypogammaglobulinemia (HCC) documented in this encounter Administered Medications Inactive Administered Medications - up to 3 most recent administrations Medication Order MAR Action Action Date Dose Rate Site immune globulin (human) 10 % infusion 30 g (GAMMAGARD) 30 g, intravenous, Once, On Sat01/10/24 at 1330, For 1 dose, Pump programming: Use same weight used in dosing calculation- See Ordered Dose weight above. If no weight indicated: Calculate dose based on [place] Body Weight (IBW). If Actual Body Weight [...] approve if criteria met): Meets IVIG administration criteria Rate/Dose Change 01/10/2024 2:28 PM CDT 128 mL/hr Rate/Dose Change 01/10/2024 1:58 PM CDT 63.9 mL /hr New Bag 01/10/2024 1:23 PM CDT 30 g 32 mL/hr sodium chloride 0.9 % injection 3 mL 3 mL, intravenous, As needed, line care, Starting on Sat01/10/24 at 1307, Prior to and following infusion and between multiple consecutive infusions. Given 01/10/2024 4:32 PM CDT 3 mL documented in this encounter Care Teams Mechanical Engineering Specialist Relationship Specialty Start Date End Date Elsewhere, Pcp PCP - General 11/07/23 documented as of this encounter
--- OUTSIDE RECORDS SUMMARY | 2024-04-10 02:23 | XMS_ITS | Data Portability ---
Author Organization [place] [facility] Address [address] [place] [address] [address] [place] [address] Care Team Providers Care Auto Crane Driver Name Role Phone BRUCE FORREST Primary Care Provider FLORA KEMP Referring Provider NIKO CRISOSTOMO Primary Care Provider Assessment No assessment recorded. Plan of Treatment Reminders Order Date Submit Date Provider Last Modified By Organization Details Last Modified Time Details Appointments None recorded. Lab None recorded. Referral None recorded. Procedures None recorded. Surgeries None recorded. Imaging None recorded. Medication Orders triamcinolo ne acetonide 0.1 % dental paste 2022 023 [facility] [id number], [address], 15:33:29 dexamethaso ne 0.5 mg/5 mL oral elixir 2022 023 [facility] [id number] In [employer], [address] [place] [address], [address], 15:33:28 Patient TargetsNo targets recorded. Patient Instructions Encounter Date Encounter Id Patient Instructions Last Modified By Organization Details Last Modified Time 01/16/2023 [id number] canker sore: car e instructions jbarss Not [...] subsides. I also recommended she see a Timber Packer for an evaluation. She knows to reach out to me via the portal if she has any questions or concerns an d if she is able to capture a lesion by photo she will send it to me. jbarss Not available 01/16/2023 22:19:21 Reason for Referral None Reported. Procedures Surgical History Date Name Laterality Status Provider Name and Address Organization Details Recorded Time 2 procedure on lung completed NEDA Holland [facility] [place] [facility] 01/16/2023 14:30:06 Imaging Results None recorded. Procedure Notes None recorded. Medical Equipment None Reported. Allergies Allergen ID Allergen Name Allergen Category Reaction Reaction Severity Criticality Documentation Date Start Date Code Code System Note Provider Name and Address Organization Details Recorded Time 08690 Medicinal product containin g penicilli n and acting as antibacte rial agent (product) medicatio n Not available Not available Not available 01/16/2023 33675 05 SNOMED NEDA Holland [facility] [place] [facility] 3 14:38:42 46877 Substance with sulfonami de structure and antibacte rial mechanism of action (substanc e) medicatio n Not available Not available Not available 01/16/2023 87920 8003 SNOMED NEDA [facility] 3 14:38:49 Medications Name Sig Start Date Stop [...] 73 /min 118 mm[Hg] 63 mm[Hg] Rea Katelynn RED [facility] [place] [facility] 01/16/2023 14:37:47 Social History Question Answer Notes LastModified by Organizat ion Details LastModified Time Tobacco Smoking Status Never Smoker Rea NEDA Riggs [facility] [place] [facility] 01/16/2023 14:41:43 [...] Drugs? No Information not available 01/16/2023 Sex: Unknown Functional Status Question Answer Note LastModified by [...] Head Trauma/Injury N Irritable bowel syndrome N COPD N Depression Y Glaucoma N Lung Disease N Hypothyroidism N [...] Heart Attack ([place]) N Stomach Ulcers N Diabetes N Back [...] Encounter Start Date Encounter Closed Date Diagnosis/Indication Diagnosis SNOMED-CT Code [id number] Helena Villalta DDS [address] [place] [address] 01/16/2023 14:17:38 01/16/2023 15:33:21 Aphthous ulcer of mouth [id number] Health Concerns Section Related Observation LastModified by Organization Detai ls LastModified Time None Recorded Concern Status LastModified by Organization Details LastModified Time None Recorded Advance Directives Directive None Recorded Payers Encounter Date Sequence Insurance Name Policy Number Policy Guevara Covered Member ID Guevara Member ID Guarantor Name 01/16/2023 1 [employer] - DOS ON OR AFTER 19 (MEDICARE REPLACEMENT/ ADVANTAGE - HMO) [id number] 1 Alexia Phillips [id number] Alexia Phillips Notes Date Note Type Note [...] last jul 2023. Helena Villalta DDS [address] [facility] [address], [place], [address], [facility] 01/16/2023 22:21:14 OBGyn Episode No OBEpisode recorded.
--- OUTSIDE RECORDS SUMMARY | 2024-04-10 02:23 | XMS_ITS | Encounter Summary ---
Author Organization [facility] Address [address] [place] [address] Care Team Providers Care Scuba Instructor Name Role Phone Elsewhere, Pcp Primary Care Provider Unavailabl e Reason for Visit * Reason Comments Med Refill Encounter Details Date Type Department Care Team (Late st Contact Info) Description 11/17/2023 Refill Department of Hospital Internal Medicine in [place], [place] [address] [place] [phone] Xochitl Mccabe, PYeskiaA.-C. [address] [place] [phone] Med Refill Social History Tobacco Use Types Packs/Day Years Used Date Smoking Tobacco: Never Smokeless Tobacco: Never Comments:I have never used t obacco. Alcohol Use Standard Drinks/Week Comments Never 0 (1 standard drink = 0.6 oz pur e alcohol) [facility] Utilities Answer Date Recorded In the past 12 months has e electric, gas, oil, or water company [...] How often do you attend [facility] or orthodox services? Never 06/04/2022 Do you [...] care, and heating? Not very hard 06/04/2022 [facility] - Occupational Stress [...] your living situation today? I have a [facility] place to live 11/08/2023 Education Answer Date Recorded What is the highest level of school you have completed or the highest degree you have received? Master's degree (e.g., MA, MS, Milly, MEd, RIPSAWYER, MADELYN) 06/04/2022 Sex and Gender Information Value Date Recorded Sex Assigned at Female 06/04/2022 4:58 PM CDT Gender Identity Female 06/04/2022 4:58 PM CDT Sexual Orientation Straight 06/04/2022 4: 58 PM CDT documented as of this encounter Plan of Treatment Upcoming Encounters Date Type Department Care Team (Latest Contact Info) Description 04/30/2024 1:00 PM CDT Infusion Department of Infusion Therapy in [address] [place] [address] Mehreen Landis M.D. 05/11/2024 1:00 PM CDT Clinical Communication Virtual Review in [place], [place] 200 [place] [address] 05/13/2024 11:30 AM CDT Appointment Department of Radiology, [facility], in [place], [place] [address] [place] [phone] Radha Keen APRN, C.N.P., M.S.N. [address] [place] [phone] 05/13/2024 2:30 PM CDT Office Visit Division of Thoracic Surgery in [place], [place] [address] [place] [phone] Radha Keen APRN, C.N.P., M.S.N. [address] [place] [phone] 05/28/2024 1:15 PM CDT Infusion Department of Infusion Therapy in [place], [place] [address] [place] [address] Mehreen Landis M.D. 06/11/2024 1:00 PM CDT Clinical Communication Virtual Review in [address] [phone] 06/15/2024 1:30 PM CDT Office Visit Division of Allergic Diseases in [place], [place] [address] [place] [phone] Brayan Swain M.D., M.S. [address] [place] [phone] 06/22/2024 12:30 PM CDT Clinical Communication Virtual Review in [address] [phone] 06/23/2024 1:30 PM CDT Comprehensive Visit [facility] in [place], [place] [address] [place] [address] Ada Day APRN, C.N.P., D.N.P. [address] [place] [address] 06/25/2024 12:30 PM CDT Appointment Department of Laboratory Medicine and Pathology, [facility], in [place], [place] [facility] [address] [place] [phone] Mehreen Landis M.D. 06/25/2024 1:15 PM CDT Infusion Department of Infusion Therapy in [address] [place] [phone] Mehreen Landis M.D. documented as of this encounter Visit Diagnoses Not on filedocumented in this encounter Care Teams Scuba Instructor Relationship Specialty Start Date End Date Elsewhere, Pcp PCP - General 11/07/23 documented as of this encounter
--- OUTSIDE RECORDS SUMMARY | 2024-04-10 02:23 | XMS_ITS | Encounter Summary ---
Author Organization [facility] Address [address] [place] [address] Care Team Providers Care Physician Extender Name Role Phone Elsewhere, Pcp Primary Care Provider Unavailabl e Reason for Referral * Outpatient (Routine) - Authorized Specialty Diagnoses / Procedures Referred By Contac t Referred To Contact Women's Health Diagnoses Immunodeficiency (HCC) Need Therapy Hormone Replacement Brayan Swain M.D., M.S. [address] [place] [phone] [facility] Referral ID Status Reason Start Date Expiration Date V isits Requested Visits Authorized [id number] Authorized 02/24/2024 08/25/2025 1 1 Reason for Visit * Outpatient (Routine) - Closed Specialty Diagnoses / Procedures Referred By Contac t Referred To Contact Allergy and Immunology Diagnoses Immunodeficiency (HCC) Xochitl Mccabe PYesikaAManuelCYesika [address] [place] [phone] [facility] Referral ID Status Reason Start Date Expiration Date V isits Requested Visits Authorized [id number] Closed Specialty Services Required 10/18/2023 04/18/2025 1 1 Encounter Details Date Type Department Care Team (Late st Contact Info) Description 02/24/2024 2:30 PM CDT Office Visit Division of Allergic Diseases in [place], [place] [address] [place] [phone] Brayan Swain M.D., M.S. [address] [place] [phone] Need Therapy Hormone Replacement (Primary Dx); Immunodeficiency (HCC) Social History Tobacco Use Types Packs/Day Years Used Date Smoking Tobacco: Never Smokeless Tobacco: Never Comments:I have never used t obacco. Alcohol Use Standard Drinks/Week Comments Never 0 (1 standard drink = 0.6 oz pur e alcohol) [facility] Utilities Answer Date Recorded In the past 12 months has e [employer], gas, oil, or water nuPSYS threatened to shut off services in your [...] often do you attend chur ch or oriental orthodox services? Never 06/04/2022 Do you belong [...] care, and heating? Not very hard 06/04/2022 [facility] of Occupat ional Health - Occupational [...] your living situation today? I have a [facility] place to live 11/08/2023 Education Answer Date Recorded What is the highest level of school you have completed or the highest degree you have received? Master's degree (e.g., MA, MS, Milly, MEd, INTRANET SPECIALIST, MADELYN) 06/04/2022 Sex and Gender Information Value Date Recorded Sex Assigned at Female 06/04/2022 4:58 PM CDT Gender Identity Female 06/04/2022 4:58 PM CDT Sexual Orientation Straight 06/04/2022 4: 58 PM CDT documented as of this encounter Last Filed Vital Signs Vital Sign Reading Time Taken Comments Blood Pressure - - Pulse - - Temperature 35.9 ??C (96.6 ??F) 02/24/2024 2:23 PM CD T Respiratory Rate - - Oxygen Saturation - - Inhaled Oxygen Concentration - - Weight - - Height - - Body Mass Index - - documented in this encounter Consult Notes * Brayan Swain M.D., M.S. 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 Keke is the oldest for 5 siblings and did not have any history of recurrent infections. She did havea history of anxiety and some depression in her young adult life and got when she was about30 years old. She had elementary education as well as masters in counseling. She moved with her to [place] where she tried in vitro fertilization but could not get . Finally, they were able to adopt a 6-week-old . Around this time, her was diagnosed with stage 4 non-Hodgkin's lymphoma. He underwent multiple therapies including stem cell transplantation and [id number]. She underwent extensive therapies and finally moved to [facility] in 2009 to be cl oser to family. 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 More recently, she had COVID pneumonia for 3 months. She was started on IVIG and so far has received four doses at 20 g every 4 weeks. The patient is questioning about optimal management for her thymoma and next steps for improving her pulmonary health. There is no history of urinary tract infections, lymph node infections, bacteremia, or thrush. FAMILY HISTORY Negative for consanguinity. Her father lived up to age 98. Mother at age 88 with history of ovarian cancer and Parkinson's disease. OBJECTIVE PHYSICAL EXAMINATION Deferred. ASSESSMENT / PLAN #1 Good syndrome #2 Hypogammaglobulinemia #3 History of low DLCO #4 Recent history of COVID pneumonia #5 Need for Shingrix vaccination Pat is currently on prophylactic Bactrim as well as Valtrex. I discussed the need to do a Shingrix vaccination. When the patient is getting the Shingrix vaccine she should come off the Valtrex prophylaxis. In addition, I discussed with the patient that based on her testing results we should make a r ecommendation about decreasing the Bactrim prophylaxis from one double-strength every day to one single-strength every day. Her IgG levels have been subtherapeutic. I will optimize her IVIG to 35 grams every 4 weeks. Based on our testing results, I shall make additional recommendations about the COVID vaccination and the need for COVID monoclonal antibody. We had a very lengthy discussion about natural history of thymoma, as well as Good syndrome. ADDENDUM: We shall switch bactrim to SS daily. PATIENT EDUCATION: Ready to learn. No apparent learning barriers were identified. Learning preferences include listening. Explained diagnosis and treatment plan; patient/family expressed understanding of the content. BILLING: Consult level 4. documented in this encounter Plan of Treatment Upcoming Encounters Date Type Department Care Team (Latest Contact Info) Description 04/30/2024 1:00 PM CDT Infusion Department of Infusion Therapy in [place], [place] [address] [place] [phone] Mehreen Landis M.D. 05/11/2024 1:00 PM CDT Clinical Communication Virtual Review in [place], [place] 200 [place] [address] 05/13/2024 11:30 AM CDT Appointment Department of Radiology, [facility], in [place], [place] [address] [place] [phone] Radha Keen APRN, C.NYesikaP., M.S.N. [address] [place] [phone] 05/13/2024 2:30 PM CDT Office Visit Division of Thoracic Surgery in [place], [place] [address] [place] [phone] Radha Keen APRN, C.NCasandra., M.S.N. [address] [place] [phone] 05/28/2024 1:15 PM CDT Infusion Department of Infusion Therapy in [place], [place] [address] [place] [phone] Mehreen Landis M.D. 06/11/2024 1:00 PM CDT Clinical Communication Virtual Review in [place], [place] 200 [place] [phone] 06/15/2024 1:30 PM CDT Office Visit Division of Allergic Diseases in [place], [place] [address] [place] [phone] Brayan Swain M.D., M.S. [address] [place] [phone] 06/22/2024 12:30 PM CDT Clinical Communication Virtual Review in [place], [place] 200 [place] [address] 06/23/2024 1:30 PM CDT Comprehensive Visit Menopause and Women's Sexual Health Clinic in [place], [place] [address] [place] [phone] Ada Day APRN, Sandip.N.P., D.N.P. [address] [place] [phone] 06/25/2024 12:30 PM CDT Appointment Department of Laboratory Medicine and Pathology, [facility], in [place], [place] [address] [place] [address] Mehreen Landis M.D. 06/25/2024 1:15 PM CDT Infusion Department of Infusion Therapy in [place], [place] [address] [place] [address] Mehreen Landis M.D. Scheduled Referrals Name Type Priority Associated Diagnoses Orde r Schedule Women's Health - Menopause consult (clinic) Outpatient Referral Routine Immunodeficiency (HCC) Need Therapy Hormone Replacement Expected: 02/24/2024, Expires: 05/26/2025 documented as of this encounter Results * Pulmonary Function Tests (03/31/2024 2:04 PM CDT) PostFVC 3.33 L 03/31/2024 4:43 PM CDT [facility] PostFEV1 2.66 L 03/31/2024 4:43 PM CDT [facility] FEV1/FVC POST 80.11 % 03/31/2024 4:43 PM CDT [facility] FEF 25-75 % POST 2.43 L/s 03/31/2024 4:43 PM CDT [facility] PEF POST 6.56 L/s 03/31/2024 4:43 PM CDT [facility] PIF POST 4.58 L/s 03/31/2024 4:43 PM CDT [facility] FEF 50 % FIF 50 POST 67.79 % 03/31/2024 4:43 PM CDT [facility] FET POST 4.21 sec 03/31/2024 4:43 PM CDT [facility] DLCO 13.43 ml/(min*mm Hg) 03/31/2024 4:43 PM CDT [facility] VA 4.56 L 03/31/2024 4:43 PM CDT [facility] PulseRest 79.00 1/min 03/31/2024 4:43 PM CDT [facility] [id number] 97.00 % 03/31/2024 4:43 PM CDT [facility] PulseExer 96.00 1/min 03/31/2024 4:43 PM CDT [facility] EXER TIME 3.00 min 03/31/2024 4:43 PM CDT [facility] STEP HEIGHT PRE 9.00 Inch 03/31/2024 4:43 PM CDT [facility] TLC 5.84 L 03/31/2024 4:43 PM CDT [facility] FRCPLETH PROVBASE 4.06 L 03/31/2024 4:43 PM CDT [facility] RV 2.56 L 03/31/2024 4:43 PM CDT [facility] RV % TLC PRE 43.85 % 03/31/2024 4:43 PM CDT [facility] FVC 3.28 L 03/31/2024 4:43 PM CDT [facility] FEV1 2.48 L 03/31/2024 4:43 PM CDT [facility] FEV1/FVC 75.78 % 03/31/2024 4:43 PM CDT [facility] FZA21-32% 1.96 L/s 03/31/2024 4:43 PM CDT [facility] PEF PRE 6.44 L/s 03/31/2024 4:43 PM CDT [facility] PIF PRE 3.86 L/s 03/31/2024 4:43 PM CDT [facility] FEF 50 % FIF 50 PRE 84.44 % 03/31/2024 4:43 PM CDT [facility] FET PRE 6.10 sec 03/31/2024 4:43 PM CDT [facility] SUBSTANCE POST Albuterol 03/31/2024 4:43 PM CDT [facility] 03/31/2024 2:04 PM CDT Impressions [facility] - 03/31/2024 4:43 PM CDT Abnormal. Diffusing [...] increased. Brayan Swain M.D., M.S. PFT ORDERABLES Performing Organization Address [facility] Co de Phone Number [facility] NA * 25-Hydroxyvitamin D2 and D3 (02/24/2024 3:57 PM CDT) Pathologist [facility] 25-Hydroxy D2 <4.0 ng/mL 02/26/2024 3:30 PM CDT [facility] 25-Hydroxy D3 78 ng/mL 02/26/2024 3:30 PM CDT [facility] 25-Hydroxy D Total 78 ng/mL 2023 3:30 PM CDT [facility] Comment: Interpretation: 51-80 ng/mL (increased risk of hypercalciuria) ----REFERENCE VALUE---- 25-HYDROXY D TOTAL (D2+D3) Optimum levels in the healthy population are 20-50. ----ADDITIONAL INFORMATION---- This test was developed and its performance characteristics determined by [facility] in a manner consistent with CLIA requirements. This test has not been cleared or approved by the U.S. Food and Drug Administration. Blood (Blood, Venous) 02/24/2024 3:57 PM CDT 02/25/2024 7:28 AM CDT Brayan Swain M.D., M.S. LAB BLOOD ADD-ON Performing Organization Address City/[facility] Co de Phone Number [facility] [address] [place] [address] [facility] [address] [place] [address] [place] [address] * (ABNORMAL) Quantitative Lymphocyte Subsets: T, B, and Natural Killer (NK) (02/24/2024 3:57 PM CDT) CD45 Total Lymph Count 0.66(L) 0.82 - 2.84 thou/[facility] 02/24/2024 11:19 PM CDT [facility] % CD3 (T Cells) 92(H) 58 - 86 % 11:19 PM CDT [facility] CD3 (T Cells) 610 550 - 2202 cells/[facility] 02/24/2024 11:19 PM CDT [facility] % CD4 (T Cells) 43 32 - 64 % 11:19 PM CDT [facility] CD4 (T Cells) 287(L) 365 - 1437 cells/[facility] 02/24/2024 11:19 PM CDT [facility] % CD8 (T Cells) 44(H) 8 - 40 % 11:19 PM CDT [facility] CD8 T Cells 295 80 - 846 cells/[facility] 02/24/2024 11:19 PM CDT [facility] % CD19 (B Cells) 0(L) 3 - 24 % 02/24/20 24 11:19 PM CDT [facility] CD19 (B Cells) 0(L) 45 - 409 cells/[facility] 02/24/2024 11:19 PM CDT [facility] % CD16+CD56 (NK cells) 8 5 - 28 % 02/24/2024 11:19 PM CDT [facility] CD16+CD56 (NK cells) 53(L) 59 - 513 cells/[facility] 02/24/2024 11:19 PM CDT [facility] 4/8 Ratio 1.0 >=0.9 02/24/2024 11:19 PM CDT [facility] Comment: ----ADDITIONAL INFORMATION---- This test was developed using an analyte specific reagent. Its performance characteristics were determined by [facility] in a manner consistent with CLIA requirements. This test has not been cleared or approved by the U.S. Food and Drug Administration. Blood (Blood, Venous) 02/24/2024 3:57 PM CDT 02/24/2024 5:53 PM CDT Brayan Swain M.D., M.S. LAB BLOOD ADD-ON Performing Organization Address City/[facility]/ZIP Co de Phone Number [facility] [address] [place] [address] [facility] [address] [place] [address] [place] [address] * (ABNORMAL) Immunoglobulins (IgG, IgA, and IgM) [...] M.S. LAB BLOOD ADD-ON Performing Organization Address [facility]/ZIP Co de Phone Number [facility] [address] [place] [address] [facility] [address] [place] [address] * Ferritin (02/24/2024 3:57 PM CDT) Ferritin, S 21 11 - 328 mcg/L 02/24/2024 4:54 PM CDT [facility] Blood (Blood, Venous) 02/24/2024 3:57 PM CDT 02/24/2024 4:31 PM CDT Brayan Swain M.D., M.S. LAB BLOOD ADD-ON [facility] [address] [place], [place] [address] DTL [facility] 200 [place] [address] * (ABNORMAL) CBC with Differential, Blood (02/24/2024 3:57 PM CDT) [facility] Hemoglobin 11.8 11.6 - 15.0 g/dL 02/24/2024 [...] - 6.45 x10(9)/L 02/24/2024 9:00 PM CDT [facility] Comment:Rechecked Lymphocytes 0.69(L) 0.95 - 3.07 [...] Brayan Swain M.D., M.S. LAB BLOOD ADD-ON [facility] [address] [place] [address], [place] DTL [facility] [address] [place] [address] [facility] [address] [place] [address] * (ABNORMAL) Comprehensive Metabolic Panel (02/24/2024 3:57 PM CDT) [facility] Potassium, S 4.7 3.6 - 5.2 mmol/L [...] Brayan Swain M.D., M.S. LAB BLOOD ADD-ON [facility] [address] [place] [address], [facility] [address] [place] [address] documented in this encounter Visit Diagnoses Diagnosis Need Therapy Hormone Replacement- Primary Immunodeficiency (HCC) documented in this encounter Care Teams Physician Extender Relationship Specialty Start Date End Date Elsewhere, Pcp PCP - General 11/07/23 documented as of this encounter
--- OUTSIDE RECORDS SUMMARY | 2024-04-10 02:23 | XMS_ITS | Encounter Summary ---
Author Organization [facility] Address [address] [place] [address] Care Team Providers Care [employer] Worker Name Role Phone Elsewhere, Pcp Primary Care Provider Unavailabl e Reason for Visit * Episode Based Medications (Routine) - Authorized Specialty Diagnoses / Procedures Referred By Contac t Referred To Contact Diagnoses Hypogammaglobulinemia (HCC) Other Combined Immunodeficiencies (HCC) Procedures IN GAMMAGARD LIQUID INJ Mehreen Landis M.D. [address] [place] [address] Referral ID Status Reason Start Date Expiration Date V isits Requested Visits Authorized [id number] Authorized 10/17/2023 08/25/2024 12 12 Encounter Details Date Type Department Care Team (Latest Contact Info) Description 02/06/2024 1:15 PM CDT Infusion Department of Infusion Therapy in [place], [place] [address] [place] [phone] Mehreen Landis M.D. Hypogammaglobulinemia (HCC) (Primary Dx); Other Combined Immunodeficiencies (HCC) Discharge Disposition: Home or Self Care Social History Tobacco Use Types Packs/Day Years Used Date Smoking Tobacco: Never Smokeless Tobacco: Never Tobacco Cessation:Counseling Given: Not Answered Comments:I have never used tobacco. Alcohol Use Standard Drinks/Week Comments Never 0 (1 standard drink = 0.6 oz pur e alcohol) [facility] Utilities Answer Date Recorded In the past 12 months has e [employer], gas, oil, or water company threatened to [...] declined 06/04/2022 How often do you attend [facility] or rastafarian services? Never 06/04/2022 Do you [...] care, and heating? Not very hard 06/04/2022 [facility] [place] of Occupat ional Health - Occupational Stress [...] Date Recorded Dental: Regular Dentist Yes 06/04/20 22 Employment Answer Date Recorded Employment status Retired 11/08/2023 Housing Stability Answer Date Recorded What is your living situation today? I have a [facility] place to live 11/08/2023 Education Answer Date Recorded What is the highest level of school you have completed or the highest degree you have received? Master's degree (e.g., MA, MS, Milly, MEd, [employer], MADELYN) 06/04/2022 Sex and Gender Information Value Date Recorded Sex Assigned at Female 06/04/2022 4:58 PM CDT Gender Identity Female 06/04/2022 4:58 PM CDT Sexual Orientation Straight 06/04/2022 4: 58 PM CDT documented as of this encounter Last Filed Vital Signs Vital Sign Reading Time Taken Comments Blood Pressure 119/54 02/06/2024 4:58 PM CDT Pulse 68 02/06/2024 4:58 PM CDT Temperature 36.4 ??C (97.5 ??F) 02/06/2024 2:51 PM CD T Respiratory Rate 18 02/06/2024 4:58 PM CDT Oxygen Saturation - - Inhaled Oxygen Concentration - - Weight 69 kg (152 lb 1.9 oz) 02/06/2024 1:18 PM CDT Height - - Body Mass Index 23.05 10/17/2023 12:17 PM SENIOR INFORMATION SYSTEMS ARCHITECT documented in this encounter Plan of Treatment Upcoming Encounters Date Type Department Care Team (Latest Contact Info) Description 04/30/2024 1:00 PM CDT Infusion Department of Infusion Therapy in [address] [place] [phone] Mehreen Landis M.D. 05/11/2024 1:00 PM CDT Clinical Communication Virtual Review in [place], [place] 200 [place] [address] 05/13/2024 11:30 AM CDT Appointment Department of Radiology, [facility], in [place], [place] [address] [place] [phone] Radha Keen APRN, C.N.P., M.S.N. [address] [place] [phone] 05/13/2024 2:30 PM CDT Office Visit Division of Thoracic Surgery in [place], [place] [address] [place] [phone] Radha Keen APRN, C.N.P., M.S.N. [address] [place] [phone] 05/28/2024 1:15 PM CDT Infusion Department of Infusion Therapy in [place], [place] [facility] [address] [place] [phone] Mehreen Landis M.D. 06/11/2024 1:00 PM CDT Clinical Communication Virtual Review in [place], [place] [address] [place] [address] 06/15/2024 1:30 PM CDT Office Visit Division of Allergic Diseases in [place], [place] [address] [place] [phone] rBayan Swain M.D., M.S. [address] [place] [phone] 06/22/2024 12:30 PM CDT Clinical Communication Virtual Review in [place], [place] [address] [place] [address] 06/23/2024 1:30 PM CDT Comprehensive Visit Menopause and Women's Sexual Health Clinic in [place], [place] [address] [place] [phone] Ada Day APRN, C.N.P., D.N.P. [address] [place] [phone] 06/25/2024 12:30 PM CDT Appointment Department of Laboratory Medicine and Pathology, [facility], in [place], [place] [facility] [address] [place] [phone] Mehreen Landis M.D. 06/25/2024 1:15 PM CDT Infusion Department of Infusion Therapy in [place], [place] [address] [place] [phone] Mehreen Landis M.D. documented as of this encounter Visit Diagnoses Diagnosis Hypogammaglobulinemia (HCC)- Primary Other Combined Immunodeficiencies (HCC) documented in this encounter Administered Medications Inactive Administered Medications - up to 3 most recent administrations Medication Order MAR Action Action Date Dose Rate Site immune globulin (human) 10 % infusion 30 g (GAMMAGARD) 30 g, intravenous, Once, On Christina 02/06/24 at 1345, For 1 dose, Pump programming: Use same weight used in dosing calculation- See Ordered Dose weight above. If no weight indicated: Calculate dose based on [place] Body Weight (IBW). If Actual Body Weight [...] met): Meets IVIG administration criteria Rate/Dose Change 02/06/2024 2:50 PM CDT 128 mL/hr Rate/Dose Change 02/06/2024 2:20 PM CDT 63.9 mL /hr New Bag 02/06/2024 1:46 PM CDT 30 g 32 mL/hr sodium chloride 0.9 % injection 3 mL 3 mL, intravenous, As needed, line care, Starting on Christina 02/06/24 at 1313, Prior to and following infusion and between multiple consecutive infusions. Given 02/06/2024 4:56 PM CDT 3 mL Given 02/06/2024 1:30 PM CDT 3 mL documented in this encounter Care Teams Emu Farm Worker Relationship Specialty Start Date End Date Elsewhere, Pcp PCP - General 11/07/23 documented as of this encounter
== END 2024-04-06 10:29 | disposition home or self-care (01) ==
LOC: NFLDREF 04-10 02:19
PROVIDERS: PCP Family Medicine; Referring Provider Family Medicine; Visit Provider Family Medicine
DX: E78.5 Hyperlipidemia, unspecified (principal); D83.8 Other common variable immunodeficiencies; D50.9 Iron deficiency anemia, unspecified; M85.80 Other specified disorders of bone density and structure, unspecified site; E53.8 Deficiency of other specified B group vitamins; M81.0 Age-related osteoporosis without current pathological fracture
CPT/HCPCS: 80053; 80061; 82306; 82607; 82728

== ENCOUNTER 2024-05-25 09:57 | Outpatient (CLI) | payer MEDICARE, SELFPAY ==
--- OUTSIDE RECORDS SUMMARY | 2024-05-25 09:59 | XMS_ITS | Encounter Summary ---
Author Organization [facility] Address [address] [place] [address] Care Team Providers Care Maintenance Man Name Role Phone Elsewhere, Pcp Primary Care Provider Unavailabl e Reason for Visit * Reason Onset Date Comments Pre-visit Intake 05/11/2024 Encounter Details Date Type Department Care Team (Latest Contact Info) Description 05/11/2024 1:00 PM CDT Clinical Communication Virtual Review in [place], [place] [address] [place] [address] Pre-visit Intake Social History Tobacco Use Types Packs/Day Years Used Date Smoking Tobacco: Never Smokeless Tobacco: Never Comments:I have never used t obacco. Alcohol Use Standard Drinks/Week Comments Never 0 (1 standard drink = 0.6 oz pur e alcohol) [facility] Utilities Answer Date Recorded In the [...] How often do you attend chur or taoist services? Never 06/04/2022 Do you [...] hard 06/04/2022 [facility] [place] of Occupat ional Health - Occupational Stress [...] your living situation today? [facility] 11/08/2023 Education Answer Date Recorded What is the highest level of school you have completed or the highest degree you have received? Master's degree (e.g., MA, MS, Milly, MEd, OCEANOGRAPHER GEOLOGICAL, MADELYN) 06/04/2022 Sex and Gender Information Value Date Recorded Sex Assigned at Female 06/04/2022 4:58 PM CDT Gender Identity Female 06/04/2022 4:58 PM CDT Sexual Orientation Straight 06/04/2022 4: 58 PM CDT documented as of this encounter Plan of Treatment Upcoming Encounters Date Type Department Care Team (Latest Contact Info) Description 05/28/2024 1:15 PM CDT Infusion Department of Infusion Therapy in [address] [place] [address] Mehreen Landis M.D. 06/04/2024 11:30 AM CDT Clinical Communication Virtual Review in [address] [phone] 06/05/2024 1:00 PM CDT Appointment Department of Radiology, [facility], in [address] [phone] Radha Keen APRN, C.N.P., M.S.N. [address] [place] [phone] 06/05/2024 3:00 PM CDT Office Visit Division of Thoracic Surgery in [place], [place] [address] [place] [phone] Radha Keen APRN, C.NCasandra., M.S.N. [address] [place] [phone] 06/11/2024 1:00 PM CDT Clinical Communication Virtual Review in [address] [phone] 06/15/2024 1:30 PM CDT Office Visit Division of Allergic Diseases in [address] [phone] Brayan Swain M.D., M.S. [address] [place] [phone] 06/22/2024 12:30 PM CDT Clinical Communication Virtual Review in [address] [phone] 06/23/2024 1:30 PM CDT Comprehensive Visit [facility] in [address] [phone] Ada Day APRN, C.N.P., D.N.P. [address] [place] [phone] 06/25/2024 12:30 PM CDT Appointment Department of Laboratory Medicine and Pathology, [facility], in [place], [place] [address] [facility] [place] [address] Mehreen Landis M.D. 06/25/2024 1:15 PM CDT Infusion Department of Infusion Therapy in [place], [place] [address] [place] [address] [place] [address] Mehreen Landis M.D. documented as of this encounter Visit Diagnoses Not on filedocumented in this encounter Care Teams Maintenance Man Relationship Specialty Start Date End Date Elsewhere, Pcp PCP - General 11/07/23 documented as of this encounter
--- OUTSIDE RECORDS SUMMARY | 2024-05-25 09:59 | XMS_ITS | Referral Summary ---
Author Organization [facility] Address [address] [place] [address] Care Team Providers Care Piggyback Clerk Name Role Phone Elsewhere, Pcp Primary Care Provider Unavailabl e Source Comments Patient records contain information from all sites at [facility]. For routine questions regarding patient records, call [phone] during business hours, M-F 8:00 AM - 5:00 PM Central Time. Record requests for emergency care only can be directed to [phone] at any time.[facility] Encounters Date Type Department Care Team Description 05/11/2024 Clinical Communication Division of Thoracic Surgery in [place], [place] [address] [place] [phone] Marilyn Claudio M.D., Ph.D. 05/11/2024 1:00 PM CDT Clinical Communication Virtual Review in [place], [place] 200 [place] [address] Pre-visit Intake 04/30/2024 1:00 PM CDT Infusion Department of Infusion Therapy in [place], [place] [address] [place] [address] Mehreen Landis M.D. Hypogammaglobulinemia (HCC) (Primary Dx); Other Combined Immunodeficiencies (HCC) Discharge Disposition: Home or Self Care 04/02/2024 12:26 PM CDT - 04/02/2024 11:59 PM CDT Hospital Encounter Department of Laboratory Medicine and Pathology, [facility], in [place], [place] [address] [place] [phone] Mehreen Landis M.D. Hypogammaglobulinemia (HCC); Other Combined Immunodeficiencies (HCC) Discharge Disposition: Home or Self Care 04/02/2024 1:15 PM CDT Infusion Department of Infusion Therapy in [place], [place] [address] [place] [address] Mehreen Landis M.D. Other Combined Immunodeficiencies (HCC) (Primary Dx); Hypogammaglobulinemia (HCC) Discharge Disposition: Home or Self Care 03/23/2024 Clinical Communication Division of Allergic Diseases in [place], [place] [address] [place] [phone] Brayan Swain M.D., M.S. Letter for outside providers and Valtrex 03/05/2024 1:15 PM CDT Infusion Department of Infusion Therapy in [address] [address] Mehreen Landis M.D. Hypogammaglobulinemia (HCC) (Primary Dx); Other Combined Immunodeficiencies (HCC) 03/03/2024 Orders Only Division of Pediatric Allergy & Immunology in [place], [place] [address] [place] [phone] Brayan Swain M.D., M.S. 02/24/2024 3:40 PM CDT - 02/24/2024 11:59 PM CDT [facility] [place] [place] [address] [place] [phone] Brayan Swain M.D., M.S. Immunodeficiency (HCC) Discharge Disposition: Home or Self Care 02/24/2024 2:30 PM CDT Office Visit Division of Allergic Diseases in [place], [place] [address] [place] [address] Brayan Swain M.D., M.S. Need Therapy Hormone Replacement (Primary Dx); Immunodeficiency (HCC) from Last 3 Months Allergies Active Allergy Reactions Criticality Noted Date Comments Cephalexin Rash High 10/28/2023 ED visit 10/28/23 Penicillin V Rash Low 10/28/2023 Penicillins Rash 09/05/2010 Sulfa (Sulfonamide Antibiotics) Rash Low 08/26 Medications Medication Sig Dispensed Refills Start Date End Date Status estradioL (ESTRACE) 0.5 mg tablet Take 0.75 mg by mouth daily. 03/14/2022 Active multivitamin-ore miner blasting als-lutein (CENTURY MATURE) tablet Take 1 tablet by [...] mouth every morning before breakfast. 03/27/2023 Active glucosamine-chondr oitin 500-400 mg per tablet Take 2 tablets by mouth daily. Active docusate sodium 100 mg capsule Take 2 tablets (200 mg total) by mouth 2 (two) times a day as needed for constipation. 10/18/2023 Active valACYclovir (VALTREX) 500 mg tablet Take 1 tablet (500 mg total) by mouth 2 (two) times a day. 180 tablet 10/27/2023 Active sulfamethoxazole-t rimethoprim (Bactrim DS) 800-160 mg per tabletIndications: Prophylaxis, medical Take 1 tablet by mouth daily Indications: Prophylaxis, medical. 90 tablet 10/19/2023 Active Additional Information Patient not taking.Reported on 05/11/2024 lidocaine viscous (XYLOCAINE) 2 % mucosal solution [...] Take 1 tablet by mouth daily. Active diphenhydrAMINE-li docaine-antacid (Magic Mouthwash) 1:1:1 Take 10 mL by mouth as needed. 10/08/2023 Active sulfamethoxazole-t rimethoprim (Bactrim) 400-80 mg per tablet Take 1 tablet by mouth daily. 90 tablet 3 03/03/2024 Active diphenhydrAMINE (BenadryL) 25 mg tablet Take 25 mg by mouth at bedtime as needed for sleep. 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 Alcohol Use Standard Drinks/Week Comments Never 0 (1 standard drink = 0.6 oz pur e alcohol) [facility] Utilities Answer Date Recorded In the past 12 months has e [employer], gas, oil, or water [employer] threatened to shut off services in your [...] often do you attend chur ch or methodist services? Never 06/04/2022 Do you belong to any clubs o r organizations such as christianity groups, unions, fraternal or athletic groups, or [...] very hard 06/04/2022 [facility] of Occupat ional Health - Occupational [...] your living situation today? [facility] 11/08/2023 Education Answer Date Recorded What is the highest level of school you have completed or the highest degree you have received? Master's degree (e.g., MA, MS, Milly, MEd, SOCIAL INSURANCE ADVISER, MADELYN) 06/04/2022 Sex and Gender Information Value Date Recorded Sex Assigned at Female 06/04/2022 4:58 PM CDT Gender Identity Female 06/04/2022 4:58 PM CDT Sexual Orientation Straight 06/04/2022 4: 58 PM CDT Last Filed Vital Signs Vital Sign Reading Time Taken Comments Blood Pressure 110/47 04/30/2024 5:23 PM CDT Pulse 63 04/30/2024 5:23 PM CDT Temperature 36.7 ??C (98.1 ??F) 04/30/2024 5:23 PM CD T Respiratory Rate 18 04/30/2024 5:23 PM CDT Oxygen Saturation 96% 10/18/2023 3:45 PM BIT GATHERER Inhaled Oxygen Concentration - - Weight 69.7 kg (153 lb 10.6 oz) 04/30/2024 1:12 PM CDT Height 173 cm (5' 8.11) 10/17/2023 12: 17 PM BIT GATHERER Body Mass Index 23.29 10/17/2023 12:17 PM BIT GATHERER Plan of Treatment Upcoming Encounters Date Type Department Care Team (Latest Contact Info) Description 05/28/2024 1:15 PM CDT Infusion Department of Infusion Therapy in [place], [place] [address] [place] [address] [place] [address] Mehreen Landis M.D. 06/04/2024 11:30 AM CDT Clinical Communication Virtual Review in [address] [phone] 06/05/2024 1:00 PM CDT Appointment Department of Radiology, [facility], in [address] [phone] Radha Keen APRN, C.N.P., M.S.N. [address] [place] [phone] 06/05/2024 3:00 PM CDT Office Visit Division of Thoracic Surgery in [address] [phone] Radha Keen APRN C.N.P., M.S.N. [address] [place] [phone] 06/11/2024 1:00 PM CDT Clinical Communication Virtual Review in [address] [phone] 06/15/2024 1:30 PM CDT Office Visit Division of Allergic Diseases in [place], [place] [address] [place] [phone] Brayan Swain M.D., M.S. [address] [place] [phone] 06/22/2024 12:30 PM CDT Clinical Communication Virtual Review in [place], [place] [address] [place] [phone] 06/23/2024 1:30 PM CDT Comprehensive Visit [facility] in [place], [place] [address] [place] [phone] Ada Day APRN, C.N.P., D.N.P. [address] [place] [phone] 06/25/2024 12:30 PM CDT Appointment Department of Laboratory Medicine and Pathology, [facility], in [address] [phone] Mehreen Landis M.D. 06/25/2024 1:15 PM CDT Infusion Department of Infusion Therapy in [address] [address] Mehreen Landis M.D. Medical Devices Implanted Type Area Project Reservoir Engineer Device Identifier Shelf Expiration Date Model / Serial / Lot Wax Bn Nblbl 2.5gr - [id number] Implanted:Qty : 1 on 08/22/2022 by Lázaro Claudio M.D., Ph.D. at [facility] Hardware e.g. pins/screws/r ods [employer] 901 / / Clp Hrzn Ti 6 Clp Lg Orng - [id number] Implanted:Qty : 1 on 08/22/2022 by Lázaro Claudio M.D., Ph.D. at [facility] Hardware e.g. pins/screws/r ods [employer] [id number] 04/16/2027 [id number] / / [id number] Clp Hrzn Ti 24 Clp Nima - [id number] Implanted:Qty : 1 on 08/22/2022 by Lázaro Claudio M.D., Ph.D. at [facility] Hardware e.g. pins/screws/r ods [employer] [id number] 04/16/2027 [id number] / / [id number] Clp Hrzn Ti 6 Clp Lg Orng - [id number] Implanted:Qty : 1 on 08/22/2022 by Lázaro Claudio M.D., Ph.D. at [facility] Hardware e.g. pins/screws/r ods [employer] [id number] 04/16/2027 [id number] / / [id number] Clp Hrzn Ti 6 Clp Md Nima - [id number] Implanted:Qty : 1 on 08/22/2022 by Lázaro Claudio M.D., Ph.D. at [facility] Hardware e.g. pins/screws/r ods Right: Chest [employer] [id number] 01/07/2027 [id number] / / [id number] Clp Hrzn Ti 6 Clp Md Nima - [id number] Implanted:Qty : 1 on 08/22/2022 by Lázaro Claudio M.D., Ph.D. at [facility] Hardware e.g. pins/screws/r ods Right: Chest [employer] [id number] 01/07/2027 [id number] / / [id number] Clp Hrzn Ti 6 Clp Lg Orng - [id number] Implanted:Qty : 1 on 08/22/2022 by Lázaro Claudio M.D., Ph.D. at [facility] Hardware e.g. pins/screws/r ods Right: Chest [employer] [id number] 02/19/2027 [id number] / / [id number] Clp Hrzn Ti 6 Clp Md Nima - [id number] Implanted:Qty : 1 on 08/22/2022 by Lázaro Claudio M.D., Ph.D. at [facility] Hardware e.g. pins/screws/r ods Right: Chest [employer] [id number] 01/07/2027 [id number] / / [id number] Clp Hrzn Ti 6 Clp Nima - [id number] Implanted:Qty : 1 on 08/22/2022 by Lázaro Claudio M.D., Ph.D. at [facility] Hardware e.g. pins/screws/r ods Right: Chest [employer] [id number] 04/09/2027 [id number] / / [id number] Clp Hrzn Ti 24 Clp Nima - [id number] Implanted:Qty : 1 on 08/22/2022 by Lázaro Claudio M.D., Ph.D. at [facility] Hardware e.g. pins/screws/r ods Right: Chest [employer] [id number] 04/16/2027 [id number] / / [id number] Clp Hrzn Ti 24 Clp Nima - [id number] Implanted:Qty : 1 on 08/22/2022 by Lázaro Claudio M.D., Ph.D. at [facility] Hardware e.g. pins/screws/r ods Right: Chest [employer] [id number] 04/16/2027 [id number] / / [id number] Ocular Lens Ocular Lens Eye Orthopedic [...] Routine 02/24/2024 3:57 PM CDT Immunodeficiency (HCC) from Last 3 Months Results * (ABNORMAL) Immunoglobulin G (IgG) (04/02/2024 12:31 PM CDT) [facility] Immunoglobulin G (IgG), S 711(L) 767 - 1590 mg/dL 04/03/2024 9:51 AM CDT [facility] Blood (Blood, Venous) 04/02/2024 12:31 PM CDT 04/03/2024 6:22 AM CDT Mehreen Landis M.D. LAB BLOOD ADD-ON Performing Organization Address City/State/[facility] Co de Phone Number [facility] [address] [place] [address] [facility] [address] [place] [address] * Pulmonary Function Tests (03/31/2024 2:04 PM CDT) [facility] PostFVC 3.33 L 03/31/2024 4:43 PM CDT [facility] PostFEV1 2.66 L 03/31/2024 4:43 PM CDT [facility] FEV1/FVC POST 80.11 % 03/31/2024 4:43 PM CDT [facility] FEF 25-75 % POST 2.43 L/s 03/31/2024 4:43 PM CDT [facility] PEF POST 6.56 L/s 03/31/2024 4:43 PM CDT [facility] SUITE PIF POST 4.58 L/s 03/31/2024 4:43 PM CDT [facility] SU[facility] FEF 50 % FIF 50 POST 67.79 % 03/31/2024 4:43 PM CDT [facility] SU[facility] FET POST 4.21 sec 03/31/2024 4:43 PM CDT [facility] SUITE DLCO 13.43 ml/(min*mm Hg) 03/31/2024 4:43 PM CDT [facility] SUITE VA 4.56 L 03/31/2024 4:43 PM CDT [facility] SUITE PulseRest 79.00 1/min 03/31/2024 4:43 PM CDT [facility] SUITE G8OcsMbue 97.00 % 03/31/2024 4:43 PM CDT [facility] SUITE PulseExer 96.00 1/min 03/31/2024 4:43 PM CDT [facility] SUITE EXER TIME 3.00 min 03/31/2024 4:43 PM CDT [facility] SUITE STEP HEIGHT PRE 9.00 Inch 03/31/2024 4:43 PM CDT [facility] SUITE TLC 5.84 L 03/31/2024 4:43 PM CDT [facility] SUITE FRCPLETH PROVBASE 4.06 L 03/31/2024 4:43 PM CDT [facility] SUITE RV 2.56 L 03/31/2024 4:43 PM CDT [facility] SU[facility] RV % TLC PRE 43.85 % 03/31/2024 4:43 PM CDT [facility] SUITE FVC 3.28 L 03/31/2024 4:43 PM CDT [facility] SUITE FEV1 2.48 L 03/31/2024 4:43 PM CDT [facility] SUITE FEV1/FVC 75.78 % 03/31/2024 4:43 PM CDT [facility] SU[facility] KLA91-98% 1.96 L/s 03/31/2024 4:43 PM CDT [facility] SU[facility] PEF PRE 6.44 L/s 03/31/2024 4:43 PM CDT [facility] SU[facility] PIF PRE 3.86 L/s 03/31/2024 4:43 PM CDT [facility] SU[facility] FEF 50 % FIF 50 PRE 84.44 % 03/31/2024 4:43 PM CDT [facility] FET PRE 6.10 sec 03/31/2024 4:43 PM CDT [facility] SUBSTANCE POST Albuterol 03/31/2024 4:43 PM CDT [facility] 03/31/2024 2:04 PM CDT Impressions [facility] - 03/31/2024 4:43 PM CDT Abnormal. Diffusing [...] increased. Brayan Swain M.D., M.S. PFT ORDERABLES [facility] NA * (ABNORMAL) Quantitative Lymphocyte Subsets: T, [...] reagent. Its performance characteristics were determined by [facility] in a manner consistent with CLIA requirements. This test has not been cleared or approved by the U.S. Food and Drug Administration. Blood (Blood, Venous) 02/24/2024 3:57 PM CDT 02/24/2024 5:53 PM CDT Brayan Swain M.D., M.S. LAB BLOOD ADD-ON [facility] [address] [place] [address] [facility] [address] [place] [address] [place] [address] * 25-Hydroxyvitamin D2 and D3 (02/24/2024 3:57 [...] developed and its performance characteristics determined by [facility] in a manner consistent with CLIA requirements. This test has not been cleared or approved by the U.S. Food and Drug Administration. Blood (Blood, Venous) 02/24/2024 3:57 PM CDT 02/25/2024 7:28 AM CDT Brayan Swain M.D., M.S. LAB BLOOD ADD-ON [facility] [address] [place] [address] [facility] [address] [place] [address] [place] [address] * (ABNORMAL) CBC with Differential, Blood (02/24/2024 3:57 PM CDT) [facility] Hemoglobin 11.8 11.6 - 15.0 g/dL [...] M.S. LAB BLOOD ADD-ON Performing Organization Address City/[facility]/ZIP Co de Phone Number [facility] [address] [place] [address], [facility] DTL [facility] [address] [place] [address] [facility] [address] [place] [address] * (ABNORMAL) Immunoglobulins (IgG, IgA, and IgM) (02/24/2024 3:57 PM CDT) [facility] Immunoglobulin A (IgA), S 12(L) 61 - 356 mg/dL 02/25/2024 9:25 AM CDT [facility] Immunoglobulin M (IgM), S <5(L) 37 - 286 mg/dL 02/25/2024 9:25 AM CDT [facility] Immunoglobulin G (IgG), S 842 767 - 1590 mg/dL 02/25/2024 8:49 AM CDT [facility] Blood (Blood, Venous) 02/24/2024 3:57 PM CDT 02/25/2024 6:40 AM CDT Brayan Swain M.D., M.S. LAB BLOOD ADD-ON [facility] [address] [place] [address] [facility] [address] [place] [address] * Ferritin (02/24/2024 3:57 PM CDT) Pathologist [facility] Ferritin, S 21 11 - 328 mcg/L 02/24/2024 4:54 PM CDT [facility] Blood (Blood, Venous) 02/24/2024 3:57 PM CDT 02/24/2024 4:31 PM CDT Brayan Swain M.D., M.S. LAB BLOOD ADD-ON [facility] [address] [place] [address], [facility] [address] [place] [address] * (ABNORMAL) Comprehensive Metabolic Panel (02/24/2024 3:57 PM CDT) Pathologist [facility] Potassium, S 4.7 3.6 - [...] Brayan Swain M.D., M.S. 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 Alex Irvin Jacqueline Leavitt [facility] Health Care Agent Care Teams Piggyback Clerk Relationship Specialty Start Date End Date Elsewhere, Pcp PCP - General 11/07/23
--- OUTSIDE RECORDS SUMMARY | 2024-05-25 09:59 | XMS_ITS | Clinical Summary ---
Author Organization [facility] Address [address] [place] [address] Care Team Providers Care Band Sawmill Operator Name Role Phone Elsewhere, Pcp Primary Care Provider Unavailabl e Source Comments Patient records contain information from all sites at [facility]. For routine questions regarding patient records, call [phone] during business hours, M-F 8:00 AM - 5:00 PM Central Time. Record requests for emergency care only can be directed to [phone] at any time.[facility] Allergies Active Allergy Reactions Criticality Noted Date Comments Cephalexin Rash High 10/28/2023 ED visit 10/28/23 Penicillin V Rash Low 10/28/2023 Penicillins Rash 09/05/2010 Sulfa (Sulfonamide Antibiotics) Rash Low 08/26 Medications Medication Sig Dispensed Refills Start Date End Date Status estradioL (ESTRACE) 0.5 mg tablet Take 0.75 mg by mouth daily. 03/14/2022 Active multivitamin-re examiner als-lutein (CENTURY MATURE) tablet Take 1 tablet [...] (07/31/2022): Added automatically from request for surgery [id number] Encounters Date Type Department Care Team Description 05/11/2024 1:00 PM CDT Clinical Communication Virtual Review in [place], [place] [address] [place] [address] Pre-visit Intake 05/11/2024 Clinical Communication Division of Thoracic Surgery in [place], [place] [address] [place] [address] Marilyn Claudio M.D., Ph.D. 04/30/2024 1:00 PM CDT Infusion Department of Infusion Therapy in [place], [place] [address] [place] [address] Mehreen Landis M.D. Hypogammaglobulinemia (HCC) (Primary Dx); Other Combined Immunodeficiencies (HCC) Discharge Disposition: Home or Self Care 04/02/2024 1:15 PM CDT Infusion Department of Infusion Therapy in [place], [place] [address] [place] [address] Mehreen Landis M.D. Other Combined Immunodeficiencies (HCC) (Primary Dx); Hypogammaglobulinemia (HCC) Discharge Disposition: Home or Self Care 04/02/2024 12:26 PM CDT - 04/02/2024 11:59 PM CDT Hospital Encounter Department of Laboratory Medicine and Pathology, [facility], in [place], [place] [address] [place] [address] Mehreen Landis M.D. Hypogammaglobulinemia (HCC); Other Combined Immunodeficiencies (HCC) Discharge Disposition: Home or Self Care 03/23/2024 Clinical Communication Division of Allergic Diseases in [place], [place] [address] [place] [address] Brayan Swain M.D., M.S. Letter for outside providers and Valtrex 03/05/2024 1:15 PM CDT Infusion Department of Infusion Therapy in [place], [place] [address] [address] Mehreen Landis M.D. Hypogammaglobulinemia (HCC) (Primary Dx); Other Combined Immunodeficiencies (HCC) 03/03/2024 Orders Only Division of Pediatric Allergy & Immunology in [place], [place] [address] [place] [address] Brayan Swain M.D., M.S. 02/24/2024 3:40 PM CDT - 02/24/2024 11:59 PM CDT Hospital Encounter Department of Laboratory Medicine and Pathology, [facility] in [place], [place] [address] [place] [address] Brayan Swain M.D., M.S. Immunodeficiency (HCC) Discharge Disposition: Home or Self Care 02/24/2024 2:30 PM CDT Office Visit Division of Allergic Diseases in [place], [place] [address] [place] [address] Brayan Swain M.D., M.S. Need Therapy Hormone Replacement (Primary Dx); Immunodeficiency (HCC) from Last 3 Months Immunizations Name Administration [...] drink = 0.6 oz pur e alcohol) [facility] Utilities Answer Date Recorded In the past 12 months has th e [employer], gas, oil, or water [employer] threatened to shut off services in your [...] often do you attend chur ch or yazidism services? Never 06/04/2022 Do you belong to any clubs o r organizations such as yarsani groups, unions, fraternal or athletic groups, or [...] care, and heating? Not very hard 06/04/2022 [facility] [place] of Occupat ional Health - Occupational Stress [...] your living situation today? I have a [facility] place to live 11/08/2023 Education Answer Date Recorded What is the highest level of school you have completed or the highest degree you have received? Master's degree (e.g., MA, MS, Milly, MEd, TELEGRAPH OFFICE MANAGER, MADELYN) 06/04/2022 Sex and Gender Information [...] CDT Oxygen Saturation 96% 10/18/2023 3:45 PM HEMATOLOGY SPECIALIST Inhaled Oxygen Concentration - - Weight 69.7 kg (153 lb 10.6 oz) 04/30/2024 1:12 PM CDT Height 173 cm (5' 8.11) 10/17/2023 12: 17 PM HEMATOLOGY SPECIALIST Body Mass Index 23.29 10/17/2023 12:17 PM HEMATOLOGY SPECIALIST Plan of Treatment Upcoming Encounters Date Type Department Care Team (Latest Contact Info) Description 05/28/2024 1:15 PM CDT Infusion Department of Infusion Therapy in [address] [address] Mehreen Landis M.D. 06/04/2024 11:30 AM CDT Clinical Communication Virtual Review in [address] [phone] 06/05/2024 1:00 PM CDT Appointment Department of Radiology, [facility], in [address] [address] Radha Keen APRN, C.N.P., M.S.N. [address] [place] [phone] 06/05/2024 3:00 PM CDT Office Visit Division of Thoracic Surgery in [place], [place] [address] [place] [phone] Radha Keen APRN, C.N.P., M.S.N. [address] [place] [phone] 06/11/2024 1:00 PM CDT Clinical Communication Virtual Review in [address] [phone] 06/15/2024 1:30 PM CDT Office Visit Division of Allergic Diseases in [place], [place] [address] [place] [phone] Brayan Swain M.D., M.S. [address] [place] [phone] 06/22/2024 12:30 PM CDT Clinical Communication Virtual Review in [place], [place] [address] [place] [phone] 06/23/2024 1:30 PM CDT Comprehensive Visit Menopause and [facility] in [place], [place] [address] [place] [phone] Ada Day APRN, C.N.P., D.N.P. [address] [place] [phone] 06/25/2024 12:30 PM CDT Appointment Department of Laboratory Medicine and Pathology, [facility], in [place], [place] [address] [facility] [phone] Mehreen Landis M.D. 06/25/2024 1:15 PM CDT Infusion Department of Infusion Therapy in [place], [place] [address] [facility] [address] Mehreen Landis M.D. Health Maintenance Due Date Last Done Comments CT Colonography 1952 Cologuard 1952 Colonoscopy 1952 Colorectal Cancer Screening 1952 FIT 1952 Hepatitis C Screening 1952 Mammogram 1952 Zoster Vaccines (1 of 2) 1971 Depression Screening (Annual PHQ-2) 08/26/2023 COVID-19 Vaccine (2023-2 5 season) 2024 03/05/2023, 08/07/2022, 03/27/2022, Additional history exists Influenza Vaccine (#1) 2024 3, 06/26/2022, 06/25/2022, Additional history exists Fasting Glucose for Diabetes Screening 02/23/2027 02/24/2024, 10/16/2023, 10/14/2023, Additional history exists DTaP,Tdap,and Td Vaccines (4 - Td or Tdap) 05/07/2033 05/07/2023, 06/23/2012, 09/05/2010 Pneumococcal vaccine (65+ years) Completed 04/08/2020, 02/03/2019, 01/03/2018 Fall Risk Screen (Annual) Completed 04/30/2024 Medical Devices Implanted Type Area Dental Appliance Repairer Device Identifier Shelf Expiration Date Model / Serial / Lot Wax Bn Nblbl 2.5gr - [id number] Implanted:Qty : 1 on 08/22/2022 by Lázaro Claudio M.D., Ph.D. at [facility] Hardware e.g. pins/screws/r ods [employer] 901 / / Clp Hrzn Ti 6 Clp Lg Orng - [id number] Implanted:Qty : 1 on 08/22/2022 by Lázaro Claudio M.D., Ph.D. at [facility] Hardware e.g. pins/screws/r ods [employer] [id number] 04/16/2027 [id number] / / [id number] Clp Hrzn Ti 24 Clp Md Nima - [id number] Implanted:Qty : 1 on 08/22/2022 by Lázaro Claudio M.D., Ph.D. at [facility] Hardware e.g. pins/screws/r ods [employer] [id number] 04/16/2027 [id number] / / [id number] Clp Hrzn Ti 6 Clp Lg Orng - [id number] Implanted:Qty : 1 on 08/22/2022 by Lázaro Claudio M.D., Ph.D. at [facility] Hardware e.g. pins/screws/r ods [employer] [id number] 04/16/2027 [id number] / / [id number] Clp Hrzn Ti 6 Clp Md Nima - [id number] Implanted:Qty : 1 on 08/22/2022 by Lázaro Claudio M.D., Ph.D. at [facility] Hardware e.g. pins/screws/r ods Right: Chest [employer] [id number] 01/07/2027 [id number] / / [id number] Clp Hrzn Ti 6 Clp Md Nima - [id number] Implanted:Qty : 1 on 08/22/2022 by Lázaro Claudio M.D., Ph.D. at [facility] Hardware e.g. pins/screws/r ods Right: Chest [employer] [id number] 01/07/2027 / / [id number] Clp Hrzn Ti 6 Clp Lg Orng - [id number] Implanted:Qty : 1 on 08/22/2022 by Lázaro Claudio M.D., Ph.D. at [facility] Hardware e.g. pins/screws/r ods Right: Chest [employer] [id number] 02/19/2027 / / [id number] Clp Hrzn Ti 6 Clp Md Nima - [id number] Implanted:Qty : 1 on 08/22/2022 by Lázaro Claudio M.D., Ph.D. at [facility] Hardware e.g. pins/screws/r ods Right: Chest [employer] [id number] 01/07/2027 [id number] / / [id number] Clp Hrzn Ti 6 Clp Md Nima - [id number] Implanted:Qty : 1 on 08/22/2022 by Lázaro Claudio M.D., Ph.D. at [facility] Hardware e.g. pins/screws/r ods Right: Chest [employer] [id number] 04/09/2027 [id number] / / [id number] Clp Hrzn Ti 24 Clp Nima - [id number] Implanted:Qty : 1 on 08/22/2022 by Lázaro Claudio M.D., Ph.D. at [facility] Hardware e.g. pins/screws/r ods Right: Chest [employer] [id number] 04/16/2027 [id number] / / [id number] Clp Hrzn Ti 24 Clp Nima - [id number] Implanted:Qty : 1 on 08/22/2022 by Lázaro Claudio M.D., Ph.D. at [facility] Hardware e.g. pins/screws/r ods Right: Chest [employer] [id number] 04/16/2027 [id number] / / [id number] Ocular Lens Ocular Lens Eye Orthopedic [...] Immunoglobulin G (IgG) (04/02/2024 12:31 PM CDT) [facility] Immunoglobulin G (IgG), S 711(L) 767 - 1590 mg/dL 04/03/2024 9:51 AM CDT [facility] Blood (Blood, Venous) 04/02/2024 12:31 PM CDT 04/03/2024 6:22 AM CDT Mehreen Landis M.D. LAB BLOOD ADD-ON [facility] [address] [place] [address] [facility] [address] [place] [address] * Pulmonary Function Tests (03/31/2024 2:04 PM CDT) [facility] PostFVC 3.33 L 03/31/2024 4:43 PM CDT [facility] PostFEV1 2.66 L 03/31/2024 4:43 PM CDT [facility] FEV1/FVC POST 80.11 % 03/31/2024 4:43 PM CDT [facility] FEF 25-75 % POST 2.43 L/s 03/31/2024 4:43 PM CDT [facility] PEF POST 6.56 L/s 03/31/2024 4:43 PM CDT [facility] PIF POST 4.58 L/s 03/31/2024 4:43 PM CDT [facility] FEF 50 % FIF 50 POST 67.79 % 03/31/2024 4:43 PM CDT [facility] FET POST 4.21 sec 03/31/2024 4:43 PM CDT [facility] DLCO 13.43 ml/(min*mm Hg) 03/31/2024 4:43 PM CDT [facility] VA 4.56 L 03/31/2024 4:43 PM CDT [facility] PulseRest 79.00 1/min 03/31/2024 4:43 PM CDT [facility] Y2IhhTvlv 97.00 % 03/31/2024 4:43 PM CDT [facility] PulseExer 96.00 1/min 03/31/2024 4:43 PM CDT [facility] EXER TIME 3.00 min 03/31/2024 4:43 PM CDT [facility] STEP HEIGHT PRE 9.00 Inch 03/31/2024 4:43 PM CDT [facility] TLC 5.84 L 03/31/2024 4:43 PM CDT [facility] FRCPLETH PROVBASE 4.06 L 03/31/2024 4:43 PM CDT [facility] RV 2.56 L 03/31/2024 4:43 PM CDT [facility] RV % TLC PRE 43.85 % 03/31/2024 4:43 PM CDT [facility] FVC 3.28 L 03/31/2024 4:43 PM CDT [facility] FEV1 2.48 L 03/31/2024 4:43 PM CDT [facility] FEV1/FVC 75.78 % 03/31/2024 4:43 PM CDT [facility] VWN01-99% 1.96 L/s 03/31/2024 4:43 PM CDT [facility] PEF PRE 6.44 L/s 03/31/2024 4:43 PM CDT [facility] PIF PRE 3.86 L/s 03/31/2024 4:43 PM CDT [facility] FEF 50 % FIF 50 PRE 84.44 % 03/31/2024 4:43 PM CDT [facility] FET PRE 6.10 sec 03/31/2024 4:43 PM CDT [facility] SUBSTANCE POST Albuterol 03/31/2024 4:43 PM CDT [facility] 03/31/2024 2:04 PM CDT Impressions [facility] - 03/31/2024 4:43 PM CDT [...] increased. Brayan Swain M.D., M.S. PFT ORDERABLES [facility] NA * (ABNORMAL) Quantitative Lymphocyte Subsets: T, B, and Natural Killer (NK) (02/24/2024 3:57 PM CDT) CD45 Total Lymph Count 0.66(L) 0.82 - 2.84 thou/[facility] 02/24/2024 11:19 PM CDT SDSC % CD3 (T Cells) 92(H) 58 - 86 % 11:19 PM CDT SDSC CD3 (T Cells) 610 550 - 2202 cells/[facility] 02/24/2024 11:19 PM CDT SDSC % CD4 (T Cells) 43 32 - 64 % 11:19 PM CDT SDSC CD4 (T Cells) 287(L) 365 - 1437 cells/mcL 02/24/2024 11:19 PM CDT SDSC % CD8 (T Cells) 44(H) 8 - 40 % 4 11:19 PM CDT SDSC CD8 T Cells 295 80 - 846 cells/[facility] 02/24/2024 11:19 PM CDT SDSC % CD19 [...] reagent. Its performance characteristics were determined by [facility] in a manner consistent with CLIA requirements. This test has not been cleared or approved by the U.S. Food and Drug Administration. Blood (Blood, Venous) 02/24/2024 3:57 PM CDT 02/24/2024 5:53 PM CDT Brayan Swain M.D. M.S. LAB BLOOD ADD-ON [facility] [address] [place] [address] [facility] [address] [place] [address] [place] [address] * 25-Hydroxyvitamin D2 and D3 (02/24/2024 3:57 PM CDT) [facility] 25-Hydroxy D2 <4.0 ng/mL 02/26/2024 3:30 PM CDT SDS 25-Hydroxy D3 78 ng/mL 02/26/2024 3:30 PM CDT SDS 25-Hydroxy D Total 78 ng/mL 2023 3:30 PM CDT [facility] Comment: Interpretation: 51-80 ng/mL (increased risk of hypercalciuria) ----REFERENCE VALUE---- 25-HYDROXY D TOTAL (D2+D3) Optimum levels in the healthy population are 20-50. ----ADDITIONAL INFORMATION---- This test was developed and its performance characteristics determined by [facility] in a manner consistent with CLIA requirements. This test has not been cleared or approved by the U.S. Food and Drug Administration. Blood (Blood, Venous) 02/24/2024 3:57 PM CDT 02/25/2024 7:28 AM CDT Brayan Swain M.D., M.S. LAB BLOOD ADD-ON [facility] [address] [place] [address] [facility] [address] [place] [address] [place] [address] * (ABNORMAL) CBC with Differential, Blood (02/24/2024 [...] - 6.45 x10(9)/L 02/24/2024 9:00 PM CDT [facility] Comment:Rechecked Lymphocytes 0.69(L) 0.95 - 3.07 x10(9)/L 02/24/2024 9:00 PM CDT DTL Monocytes 0.36 0.26 - 0.81 x10(9)/L 02/24/2024 9:00 PM CDT DTL Eosinophils <0.03 0.03 - 0.48 x10(9)/L 02/24/2024 9:00 PM CDT DTL Basophils <0.03 0.01 - 0.08 x10(9)/L 02/24/2024 9:00 PM CDT D[facility] Blood (Blood, Venous) 02/24/2024 3:57 PM CDT 02/24/2024 4:17 PM CDT Brayan Swain M.D., M.S. LAB BLOOD ADD-ON [facility] [address] [place] [address], [facility] DTL [facility] [address] [place] [address] DHPM [facility] [address] [place] [address] * (ABNORMAL) Immunoglobulins (IgG, IgA, and IgM) (02/24/2024 3:57 PM CDT) Immunoglobulin A (IgA), S 12(L) 61 - 356 mg/dL 02/25/2024 9:25 AM CDT [facility] Immunoglobulin M (IgM), S <5(L) 37 - 286 mg/dL 02/25/2024 9:25 AM CDT SDS Immunoglobulin G (IgG), S 842 767 - 1590 mg/dL 02/25/2024 8:49 AM CDT [facility] Blood (Blood, Venous) 02/24/2024 3:57 PM CDT 02/25/2024 6:40 AM CDT Brayan Swain M.D., M.S. LAB BLOOD ADD-ON [facility] [address] [place] [address] [facility] [address] [place] [address] * Ferritin (02/24/2024 3:57 PM CDT) Ferritin, S 21 11 - 328 mcg/L 02/24/2024 4:54 PM CDT DTL Blood (Blood, Venous) 02/24/2024 3:57 PM CDT 02/24/2024 4:31 PM CDT Brayan Swain M.D., M.S. LAB BLOOD ADD-ON [facility] [address] [place] [address], [place] DTL [facility] [address] [place] [address] * (ABNORMAL) Comprehensive Metabolic Panel (02/24/2024 3:57 [...] Brayan Swain M.D., M.S. LAB BLOOD ADD-ON [facility] [address] [place] [address], [place] DTL [facility] [address] [place] [address] from Last 3 Months Advance Directives For more information, please contact: [phone] Documents on File Type Date Recorded Patient Loader Helper Sorting Yard Expl anation Advance Directives 08/22/2022 9:15 AM Rea PhillipsRolskyla Phillips HCPOA/ADVOCATE/AGENT/R EPRESENTATIVE/SURROGAT E * Full Code [...] Communication Rea Sousa Sister Health Care Agent [email or web address] Abraham Phillips Brother Health Care Agent [email or web address] Alex Hillsstrom [facility] Agent Care Teams Band Sawmill Operator Relationship Specialty Start Date End Date Elsewhere, Pcp PCP - General 11/07/23
--- OUTSIDE RECORDS SUMMARY | 2024-05-25 09:59 | XMS_ITS ---
Author Organization [facility] Address [address] [place] [address] Care Team Providers Care Correctional Counselor/Case Manager Name Role Phone Unavailable Unavailable Unavailable Surgery Details Not on file Complications Check Surgery Details section. Procedure Estimated Blood Loss Check Surgery Details section. Procedure Findings Check Surgery Details section. Procedure Specimens Taken Check Surgery Details section.
--- OUTSIDE RECORDS SUMMARY | 2024-05-25 09:59 | XMS_ITS | Encounter Summary ---
Author Organization [facility] Address [address] [place] [address] Care Team Providers Care Production Line Operator Name Role Phone Elsewhere, Pcp Primary Care Provider Unavailabl e Encounter Details Date Type Department Care Team (Late st Contact Info) Description 05/11/2024 Clinical Communication Division of Thoracic Surgery in [place], [place] [address] [place] [phone] Rosaura Claudio M.D., Ph.D. [address] [place] [address] Social History Tobacco Use Types Packs/Day Years Used Date Smoking Tobacco: Never Smokeless Tobacco: Never Comments:I have never used t obacco. Alcohol Use Standard Drinks/Week Comments Never 0 (1 standard drink = 0.6 oz pur e alcohol) [facility] Utilities Answer Date Recorded In [...] declined 06/04/2022 How often do you attend [facility] or gnosticist services? Never 06/04/2022 Do you [...] care, and heating? Not very hard 06/04/2022 [facility] [place] of Occupat ional Health - Occupational Stress [...] your living situation today? I have a [facility] place to live 11/08/2023 Education Answer Date Recorded What is the highest level of school you have completed or the highest degree you have received? Master's degree (e.g., MA, MS, Milly, MEd, [employer], MADELYN) 06/04/2022 Sex and Gender Information Value Date Recorded Sex Assigned at Female 06/04/2022 4:58 PM CDT Gender Identity Female 06/04/2022 4:58 PM CDT Sexual Orientation Straight 06/04/2022 4: 58 PM CDT documented as of this encounter Plan of Treatment Upcoming Encounters Date Type Department Care Team (Latest Contact Info) Description 05/28/2024 1:15 PM CDT Infusion Department of Infusion Therapy in [address] [place] [address] Mehreen Landis M.D. 06/04/2024 11:30 AM CDT Clinical Communication Virtual Review in [place], [place] 200 [place] [phone] 06/05/2024 1:00 PM CDT Appointment Department of Radiology, [facility], in [place], [place] [address] [place] [phone] Radha Keen APRN C.NYesikaP., M.S.N. [address] [place] [phone] 06/05/2024 3:00 PM CDT Office Visit Division of Thoracic Surgery in [place], [place] [address] [place] [phone] Radha Keen APRN, C.N.P., M.S.N. [address] [place] [phone] 06/11/2024 1:00 PM CDT Clinical Communication Virtual Review in [place], [place] 200 [place] [phone] 06/15/2024 1:30 PM CDT Office Visit Division of Allergic Diseases in [place], [place] [address] [place] [phone] Brayan Swain M.D., M.S. [address] [place] [phone] 06/22/2024 12:30 PM CDT Clinical Communication Virtual Review in [place], [place] 200 [place] [phone] 06/23/2024 1:30 PM CDT Comprehensive Visit [facility] in [place], [place] [address] [place] [phone] Ada Day APRN, C.N.P., D.N.P. [address] [place] [phone] 06/25/2024 12:30 PM CDT Appointment Department of Laboratory Medicine and Pathology, [facility], in [place], [place] [address] [place] [phone] Mehreen Landis M.D. 06/25/2024 1:15 PM CDT Infusion Department of Infusion Therapy in [address] [address] Mehreen Landis M.D. documented as of this encounter Visit Diagnoses Not on filedocumented in this encounter Care Teams Production Line Operator Relationship Specialty Start Date End Date Elsewhere, Pcp PCP - General 11/07/23 documented as of this encounter
--- OUTSIDE RECORDS SUMMARY | 2024-05-25 10:00 | XMS_ITS | Encounter Summary ---
Author Organization [facility] Address [address] [place] [address] Care Team Providers Care Referral Management Liaison Name Role Phone Elsewhere, Pcp Primary Care Provider Unavailabl e Reason for Referral * Outpatient (Routine) - Authorized Specialty Diagnoses / Procedures Referred By Contliz t Referred To Contact Allergy and Immunology Brayan Swain M.D., M.S. [address] [place] [address] [facility] Referral ID Status Reason Start Date Expiration Date V isits Requested Visits Authorized [id number] Authorized 03/03/2024 09/02/2025 1 1 Encounter Details Date Type Department Care Team (Late st Contact Info) Description 03/03/2024 Orders Only Division of Pediatric Allergy & Immunology in [place], [place] [address] [place] [phone] Brayan Swain M.D., M.S. [address] [place] [address] Social History Tobacco Use Types Packs/Day Years Used Date Smoking Tobacco: Never Smokeless Tobacco: Never Comments:I have never used t obacco. Alcohol Use Standard Drinks/Week Comments Never 0 (1 standard drink = 0.6 oz pur e alcohol) [facility] Utilities Answer Date Recorded In the past 12 months has e [email or web address], gas, oil, or water [employer] threatened to shut off services in your [...] declined 06/04/2022 How often do you attend [facility] or samaritan services? Never 06/04/2022 Do you belong to any clubs o r organizations such as presybeterian groups, unions, fraternal or athletic groups, or [...] care, and heating? Not very hard 06/04/2022 [facility] - Occupational Stress Questionnaire Answer Date [...] Master's degree (e.g., MA, MS, Milly, MEd, TRANSPORT PILOT, MADELYN) 06/04/2022 Sex and Gender Information Value Date Recorded Sex Assigned at Female 06/04/2022 4:58 PM CDT Gender Identity Female 06/04/2022 4:58 PM CDT Sexual Orientation Straight 06/04/2022 4: 58 PM CDT documented as of this encounter Plan of Treatment Upcoming Encounters Date Type Department Care Team (Latest Contact Info) Description 05/28/2024 1:15 PM CDT Infusion Department of Infusion Therapy in [place], [place] [address] [facility] [address] Mehreen Landis M.D. 06/04/2024 11:30 AM CDT Clinical Communication Virtual Review in [address] [phone] 06/05/2024 1:00 PM CDT Appointment Department of Radiology, [facility], in [address] [phone] Radha Keen APRN, C.N.P., M.S.N. [address] [place] [phone] 06/05/2024 3:00 PM CDT Office Visit Division of Thoracic Surgery in [address] [phone] Radha Keen APRN C.N.P., M.S.N. [address] [place] [phone] 06/11/2024 1:00 PM CDT Clinical Communication Virtual Review in [address] [phone] 06/15/2024 1:30 PM CDT Office Visit Division of Allergic Diseases in [place], [place] [address] [place] [phone] Brayan Swain M.D., M.S. [address] [place] [phone] 06/22/2024 12:30 PM CDT Clinical Communication Virtual Review in [place], [place] 200 [place] [address] 06/23/2024 1:30 PM CDT Comprehensive Visit [facility] in [place], [place] [address] [place] [phone] Ada Day APRN, C.N.P., D.N.P. [address] [place] [phone] 06/25/2024 12:30 PM CDT Appointment Department of Laboratory Medicine and Pathology, [facility], in [place], [place] [address] [place] [phone] Mehreen Landis M.D. 06/25/2024 1:15 PM CDT Infusion Department of Infusion Therapy in [place], [place] [address] [place] [phone] Mehreen Landis M.D. Scheduled Referrals Name Type Priority Associated Diagnoses Order Schedule Allergy and Immunology office visit (clinic) Immunodeficiency Outpatient Referral Routine Expected: 06/03/2024, Expires: 06/03/2025 documented as of this encounter Visit Diagnoses Not on filedocumented in this encounter Care Teams Referral Management Liaison Relationship Specialty Start Date End Date Elsewhere, Pcp PCP - General 11/07/23 documented as of this encounter
--- OUTSIDE RECORDS SUMMARY | 2024-05-25 10:00 | XMS_ITS | Encounter Summary ---
Author Organization [facility] Address [address] [place] [address] Care Team Providers Care Wood Heel Flap Trimmer Name Role Phone Elsewhere, Pcp Primary Care Provider Unavailabl e Encounter Details Date Type Department Care Team (Latest Contact Info) Description 02/24/2024 3:40 PM CDT - 02/24/2024 11:59 PM CDT Hospital Encounter Department of Laboratory Medicine and Pathology, [facility], in [place], [place] [address] [place] [address] Brayan Swain M.D., M.S. [address] [place] [address] Immunodeficiency (HCC) Discharge Disposition: Home or Self Care Social History Tobacco Use Types Packs/Day Years Used Date Smoking Tobacco: Never Smokeless Tobacco: Never Comments:I have never used t obacco. Alcohol Use Standard Drinks/Week Comments Never 0 (1 standard drink = 0.6 oz pur e alcohol) [facility] Utilities Answer Date Recorded In the past 12 months has th e electric, gas, oil, or water [employer] threatened to shut off services in your [...] care, and heating? Not very hard 06/04/2022 [employer] [place] of Occupat ional Health - Occupational Stress [...] your living situation today? I have a [facility] place to live 11/08/2023 Education Answer Date Recorded What is the highest level of school you have completed or the highest degree you have received? Master's degree (e.g., MA, MS, Milly, MEd, PLAIN GOODS HEMMER, MADELYN) 06/04/2022 Sex and Gender Information Value [...] 10 mL by mouth as needed. 10/08/2023 docusate sodium 100 mg capsule Take [...] do not swallow. 100 mL 2 10/18/2023 meivwbtoaujz-rhjwwjrx-yu tein (CENTURY MATURE) tablet Take 1 tablet [...] CDT Infusion Department of Infusion Therapy in [address] [place] [address] Mehreen Landis M.D. 06/04/2024 11:30 AM CDT Clinical Communication Virtual Review in [address] [phone] 06/05/2024 1:00 PM CDT Appointment Department of Radiology, [facility], in [place], [place] [address] [place] [phone] Radha Keen APRN, C.NYesikaP., M.S.N. [address] [place] [phone] 06/05/2024 3:00 PM CDT Office Visit Division of Thoracic Surgery in [place], [place] [address] [place] [phone] Radha Keen APRN, C.N.P., M.S.N. [address] [place] [phone] 06/11/2024 1:00 PM CDT Clinical Communication Virtual Review in [address] [phone] 06/15/2024 1:30 PM CDT Office Visit Division of Allergic Diseases in [address] [phone] Brayan Swain M.D., M.S. [address] [place] [phone] 06/22/2024 12:30 PM CDT Clinical Communication Virtual Review in [address] [phone] 06/23/2024 1:30 PM CDT Comprehensive Visit Menopause and [facility] Sexual [facility] Clinic in [place], [place] [address] [place] [phone] Ada Day APRN, C.N.P., D.N.P. [address] [place] [phone] 06/25/2024 12:30 PM CDT Appointment Department of Laboratory Medicine and Pathology, [facility], in [place], [place] [address] [facility] [place] [phone] Mehreen Landis M.D. 06/25/2024 1:15 PM CDT Infusion Department of Infusion Therapy in [place], [place] [address] [place] [address] [place] [address] Mehreen Landis M.D. documented as of this [...] developed and its performance characteristics determined by [facility] in a manner consistent with CLIA requirements. This test has not been cleared or approved by the U.S. Food and Drug Administration. Blood (Blood, Venous) 02/24/2024 3:57 PM CDT 02/25/2024 7:28 AM CDT Brayan Swain M.D., M.S. LAB BLOOD ADD-ON [facility] [address] [place] [address] [facility] [address] [place] [address] [place] [address] * (ABNORMAL) Quantitative Lymphocyte Subsets: T, B, and Natural Killer (NK) (02/24/2024 3:57 PM CDT) CD45 Total Lymph Count 0.66(L) 0.82 - 2.84 thou/mcL 02/24/2024 11:19 PM CDT [facility] % CD3 (T Cells) 92(H) 58 - 86 % 11:19 PM CDT [facility] CD3 (T Cells) 610 550 - 2202 cells/[facility] 02/24/2024 11:19 PM CDT [facility] [...] CD19 (B Cells) 0(L) 45 - 409 cells/[facility] 02/24/2024 11:19 PM CDT [facility] % CD16+CD56 (NK cells) 8 5 - 28 % 02/24/2024 11:19 PM CDT [facility] CD16+CD56 (NK cells) 53(L) 59 - 513 cells/mcL 02/24/2024 11:19 PM CDT [facility] 4/8 Ratio 1.0 >=0.9 02/24/2024 11:19 PM CDT [facility] Comment: ----ADDITIONAL INFORMATION---- This test was developed using an analyte specific reagent. Its performance characteristics were determined by [facility] in a manner consistent with CLIA requirements. This test has not been cleared or approved by the U.S. Food and Drug Administration. Blood (Blood, Venous) 02/24/2024 3:57 PM CDT 02/24/2024 5:53 PM CDT Brayan Swain M.D., M.S. LAB BLOOD ADD-ON Performing Organization Address [facility] de Phone Number [facility] [address] [place] [address] [facility] [address] [place] [address] [place] [address] * (ABNORMAL) Immunoglobulins (IgG, IgA, and IgM) (02/24/2024 3:57 PM CDT) Pathologist [facility] Immunoglobulin A (IgA), S 12(L) 61 - 356 mg/dL 02/25/2024 9:25 AM CDT [facility] Immunoglobulin M (IgM), S <5(L) 37 - 286 mg/dL 02/25/2024 9:25 AM CDT [facility] Immunoglobulin G (IgG), S 842 767 - 1590 mg/dL 02/25/2024 8:49 AM CDT [facility] Blood (Blood, Venous) 02/24/2024 3:57 PM CDT 02/25/2024 6:40 AM CDT Brayan Swain M.D., M.S. LAB BLOOD ADD-ON Performing Organization Address [facility] Co de Phone Number [facility] [address] [place] [address] [facility] [place] [address] [place] [address] * Ferritin (02/24/2024 3:57 PM CDT) [facility] Ferritin, S 21 11 - 328 mcg/L 02/24/2024 4:54 PM CDT DTL Blood (Blood, Venous) 02/24/2024 3:57 PM CDT 02/24/2024 4:31 PM CDT Brayan Swain M.D., M.S. LAB BLOOD ADD-ON [facility] [address] [place] [address], [facility] [address] [place] [address] * (ABNORMAL) CBC with Differential, Blood (02/24/2024 3:57 PM CDT) [facility] Hemoglobin 11.8 11.6 - 15.0 [...] - 6.45 x10(9)/L 02/24/2024 9:00 PM CDT [facility] Comment:Rechecked Lymphocytes 0.69(L) 0.95 - 3.07 [...] Brayan Swain M.D., M.S. LAB BLOOD ADD-ON [facility] 200 [place] [address], [facility] DTL [facility] 200 [place] [address] [facility] 200 [place] [address] * (ABNORMAL) Comprehensive Metabolic Panel (02/24/2024 3:57 PM CDT) [facility] Potassium, S 4.7 3.6 - [...] Brayan Swain M.D., M.S. LAB BLOOD ADD-ON [facility] [address] [place] [address], [facility] D[facility] [address] [place] [address] documented in this encounter Visit Diagnoses Diagnosis Immunodeficiency (HCC) documented in this encounter Care Teams Wood Heel Flap Trimmer Relationship Specialty Start Date End Date Elsewhere, Pcp PCP - General 11/07/23 documented as of this encounter
--- OUTSIDE RECORDS SUMMARY | 2024-05-25 10:00 | XMS_ITS | Encounter Summary ---
Author Organization [facility] Address [address] [place] [address] Care Team Providers Care Client Success Manager Name Role Phone Elsewhere, Pcp Primary Care Provider Unavailabl e Reason for Visit * Reason Onset Date Comments Previsit Preparation 02/20/2024 Encounter Details Date Type Department Care Team (Latest Contact Info) Description 02/20/2024 11:00 AM CDT Clinical Communication Virtual Review in [place], [place] [address] [place] [address] Previsit Preparation Social History Tobacco Use Types Packs/Day Years Used Date Smoking Tobacco: Never Smokeless Tobacco: Never Tobacco Cessation:Counseling Given: Not Answered Comments:I have never used tobacco. Alcohol Use Standard Drinks/Week Comments Never 0 (1 standard drink = 0.6 oz pur e alcohol) [facility] Utilities Answer Date Recorded In the [...] often do you attend chur ch or samaritan services? Never 06/04/2022 Do you [...] Not very hard 06/04/2022 [facility] [place] of Occupat ional Health - Occupational Stress [...] your living situation today? I have a [facility] place to live 11/08/2023 Education Answer Date Recorded What is the highest level of school you have completed or the highest degree you have received? Master's degree (e.g., MA, MS, Milly, MEd, WOOL HANKER, MADELYN) 06/04/2022 Sex and Gender Information Value Date Recorded Sex Assigned at Female 06/04/2022 4:58 PM CDT Gender Identity Female 06/04/2022 4:58 PM CDT Sexual Orientation Straight 06/04/2022 4: 58 PM CDT documented as of this encounter Plan of Treatment Upcoming Encounters Date Type Department Care Team (Latest Contact Info) Description 05/28/2024 1:15 PM CDT Infusion Department of Infusion Therapy in [address] [place] [address] Mehreen Landis M.D. 06/04/2024 11:30 AM CDT Clinical Communication Virtual Review in [place], [place] 200 [place] [address] 06/05/2024 1:00 PM CDT Appointment Department of Radiology, [facility], in [place], [place] [address] [place] [phone] Radha Keen APRN, C.N.P., M.S.N. [address] [place] [phone] 06/05/2024 3:00 PM CDT Office Visit Division of Thoracic Surgery in [place], [place] [address] [place] [phone] Radha Keen APRN, C.N.P., M.S.N. [address] [place] [phone] 06/11/2024 1:00 PM CDT Clinical Communication Virtual Review in [address] [phone] 06/15/2024 1:30 PM CDT Office Visit Division of Allergic Diseases in [address] [phone] Brayan Swain M.D., M.S. [address] [place] [phone] 06/22/2024 12:30 PM CDT Clinical Communication Virtual Review in [address] [phone] 06/23/2024 1:30 PM CDT Comprehensive Visit [facility] in [address] [phone] Ada Day APRN, Sandip.N.P., D.N.P. [address] [place] [phone] 06/25/2024 12:30 PM CDT Appointment Department of Laboratory Medicine and Pathology, [facility], in [place], [place] [address] [facility] [place] [phone] Mehreen Landis M.D. 06/25/2024 1:15 PM CDT Infusion Department of Infusion Therapy in [place], [place] [address] [place] [address] Mehreen Landis M.D. documented as of this encounter Visit Diagnoses Not on filedocumented in this encounter Care Teams Client Success Manager Relationship Specialty Start Date End Date Elsewhere, Pcp PCP - General 11/07/23 documented as of this encounter
--- OUTSIDE RECORDS SUMMARY | 2024-05-25 10:00 | XMS_ITS | Encounter Summary ---
Author Organization [facility] Address [address] [place] [address] Care Team Providers Care Inspection Clerk Name Role Phone Elsewhere, Pcp Primary Care Provider Unavailabl e Reason for Visit * Episode Based Medications (Routine) - Authorized Specialty Diagnoses / Procedures Referred By Contac t Referred To Contact Diagnoses Hypogammaglobulinemia (HCC) Other Combined Immunodeficiencies (HCC) Procedures NE GAMMAGARD LIQUID INJ Mehreen Landis M.D. Rst Sheree Nancy [address] [place] [phone] Referral ID Status Reason Start Date Expiration Date V isits Requested Visits Authorized [id number] Authorized 10/17/2023 08/25/2024 12 12 Encounter Details Date Type Department Care Team (Latest Contact Info) Description 04/30/2024 1:00 PM CDT Infusion Department of Infusion Therapy in [place], [place] [address] [facility] [address] [address] [place], [place] [phone] Mehreen Landis M.D. Hypogammaglobulinemia (HCC) (Primary Dx); [...] In the past 12 months has e [employer], gas, oil, or water company threatened to [...] declined 06/04/2022 How often do you attend [facility] or taoism services? Never 06/04/2022 Do you belong to any clubs o r organizations such as advent groups, unions, fraternal or athletic groups, or [...] care, and heating? Not very hard 06/04/2022 [facility] [place] of Occupat ional [facility] - Occupational Stress Questionnaire Answer [...] Master's degree (e.g., MA, MS, Milly, MEd, AERONAUTICAL ENGINEERING OFFICER, MADELYN) 06/04/2022 Sex and Gender Information [...] 18 04/30/2024 5:23 PM CDT Oxygen Saturation - - Inhaled Oxygen Concentration - - Weight 69.7 kg (153 lb 10.6 oz) 04/30/2024 1:12 PM CDT Height - - Body Mass Index 23.29 10/17/2023 12:17 PM TELEPHONE WORKER documented in this encounter Plan of Treatment Upcoming Encounters Date Type Department Care Team (Latest Contact Info) Description 05/28/2024 1:15 PM CDT Infusion Department of Infusion Therapy in [address] [address] Mehreen Landis M.D. 06/04/2024 11:30 AM CDT Clinical Communication Virtual Review in [place], [place] 200 [place] [address] 06/05/2024 1:00 PM CDT Appointment Department of Radiology, [facility], in [address] [phone] Radha Keen APRN, C.N.P., M.S.N. [address] [place] [phone] 06/05/2024 3:00 PM CDT Office Visit Division of Thoracic Surgery in [address] [phone] Radha Keen APRN, C.N.P., M.S.N. [address] [place] [phone] 06/11/2024 1:00 PM CDT Clinical Communication Virtual Review in [place], [place] 200 [place] [address] 06/15/2024 1:30 PM CDT Office Visit Division of Allergic Diseases in [place], [place] [address] [place] [phone] Brayan Swain M.D., M.S. [address] [place] [phone] 06/22/2024 12:30 PM CDT Clinical Communication Virtual Review in [place], [place] 200 [place] [address] 06/23/2024 1:30 PM CDT Comprehensive Visit [facility] in [place], [place] [address] [place] [phone] Ada Day, CICI, C.N.P., D.N.P. [address] [place] [phone] 06/25/2024 12:30 PM CDT Appointment Department of Laboratory Medicine and Pathology, [facility], in [address] [phone] Mehreen Landis M.D. 06/25/2024 1:15 PM CDT Infusion Department of Infusion Therapy in [address] [address] Mehreen Landis M.D. documented as of this encounter Visit Diagnoses Diagnosis Hypogammaglobulinemia (HCC)- Primary Other Combined Immunodeficiencies (HCC) documented in this encounter Administered Medications Inactive Administered Medications - up to 3 most recent administrations Medication Order MAR Action Action Date Dose Rate Site immune globulin (human) 10 % infusion 35 g (Gammagard) 35 g, intravenous, Once, On Christina 04/30/24 at 1345, For 1 dose, Pump programming: Use same weight used in dosing calculation- See Ordered Dose weight above. If no weight indicated: Calculate dose based on [place] Body Weight (IBW). If Actual Body Weight [...] Indications: primary immune deficiency disorder Rate/Dose Change 04/30/2024 2:52 PM CDT 128 mL/hr Rate/Dose Change 04/30/2024 2:20 PM CDT 64.2 mL /hr New Bag 04/30/2024 1:44 PM CDT 35 g 32.1 mL/hr sodium chloride 0.9 % injection 3 mL 3 mL, intravenous, As needed, line care, Starting on Christina 04/30/24 at 1306, Prior to and following infusion and between multiple consecutive infusions. Given 04/30/2024 5:21 PM CDT 3 mL documented in this encounter Care Teams Inspection Clerk Relationship Specialty Start Date End Date Elsewhere, Pcp PCP - General 11/07/23 documented as of this encounter
--- OUTSIDE RECORDS SUMMARY | 2024-05-25 10:00 | XMS_ITS | Encounter Summary ---
Author Organization [facility] Address [address] [place] [address] Care Team Providers Care Forensic Locksmith Name Role Phone Elsewhere, Pcp Primary Care Provider Unavailabl e Reason for Visit * Reason Comments Med Refill Encounter Details Date Type Department Care Team (Late st Contact Info) Description 11/17/2023 Refill Department of Hospital Internal Medicine in [place], [place] [address] [place] [phone] Xochitl Mccabe, PYesikaA.-C. [address] [place] [phone] Med Refill Social History Tobacco Use Types Packs/Day Years Used Date Smoking Tobacco: Never Smokeless Tobacco: Never Comments:I have never used t obacco. Alcohol Use Standard Drinks/Week Comments Never 0 (1 standard drink = 0.6 oz pur e alcohol) [facility] Utilities Answer Date Recorded In [...] declined 06/04/2022 [facility] or [facility] services? Never 06/04/2022 Do you belong to any clubs o r organizations such as anabaptism groups, unions, fraternal or athletic groups, or [...] care, and heating? Not very hard 06/04/2022 [facility] [place] of Occupat ional Health - Occupational Stress [...] your living situation today? I have a [facility] place to live 11/08/2023 Education Answer Date Recorded What is the highest level of school you have completed or the highest degree you have received? Master's degree (e.g., MA, MS, Milly, MEd, RECORDS SPECIALIST, MADELYN) 06/04/2022 Sex and Gender Information Value Date Recorded Sex Assigned at Female 06/04/2022 4:58 PM CDT Gender Identity Female 06/04/2022 4:58 PM CDT Sexual Orientation Straight 06/04/2022 4: 58 PM CDT documented as of this encounter Plan of Treatment Upcoming Encounters Date Type Department Care Team (Latest Contact Info) Description 05/28/2024 1:15 PM CDT Infusion Department of Infusion Therapy in [address] [place] [address] Mehreen Landis M.D. 06/04/2024 11:30 AM CDT Clinical Communication Virtual Review in [address] [phone] 06/05/2024 1:00 PM CDT Appointment Department of Radiology, [facility], in [place], [place] [address] [place] [phone] Radha Keen APRN, C.NCasandra., M.S.N. [address] [place] [phone] 06/05/2024 3:00 PM CDT Office Visit Division of Thoracic Surgery in [address] [phone] Radha Keen APRN, C.N.P., M.S.N. [address] [place] [phone] 06/11/2024 1:00 PM CDT Clinical Communication Virtual Review in [address] [phone] 06/15/2024 1:30 PM CDT Office Visit Division of Allergic Diseases in [address] [address] Brayan Swain M.D., M.S. [address] [place] [phone] 06/22/2024 12:30 PM CDT Clinical Communication Virtual Review in [address] [phone] 06/23/2024 1:30 PM CDT Comprehensive Visit [facility] in [address] [phone] Ada Day APRN C.N.P., D.N.P. [address] [place] [phone] 06/25/2024 12:30 PM CDT Appointment Department of Laboratory Medicine and Pathology, [facility], in [place], [place] [address] [place] [phone] Mehreen Landis M.D. 06/25/2024 1:15 PM CDT Infusion Department of Infusion Therapy in [address] [address] Mehreen Landis M.D. documented as of this encounter Visit Diagnoses Not on filedocumented in this encounter Care Teams Forensic Locksmith Relationship Specialty Start Date End Date Elsewhere, Pcp PCP - General 11/07/23 documented as of this encounter
--- OUTSIDE RECORDS SUMMARY | 2024-05-25 10:00 | XMS_ITS | Clinical Summary ---
Author Organization [facility] Address [place], [place] [address] Care Team Providers Care Photo Cartographer Name Role Phone Chitra Bruno MD Primary [...] Comments Blood Pressure 137/79 10/02/2023 6:30 PM GRINDER MILL OPERATOR Pulse 84 10/02/2023 6:30 PM GRINDER MILL OPERATOR Temperature 36.7 ??C (98.1 ??F) 10/02/2023 6:30 PM CS T Respiratory Rate 18 10/02/2023 6:30 PM GRINDER MILL OPERATOR Oxygen Saturation 95% 10/02/2023 6:30 PM GRINDER MILL OPERATOR Inhaled Oxygen Concentration - - Weight 63 kg (139 lb) 09/21/2023 5:30 PM GRINDER MILL OPERATOR Height 172.7 cm (5' 8) 09/21/2023 6:36 PM GRINDER MILL OPERATOR Body Mass Index 21.13 09/21/2023 5:30 PM GRINDER MILL OPERATOR Plan of Treatment Health Maintenance Due Date [...] Tetanus booster 09/05/2020 09/05/2010 COVID-19 vaccine series ( season) 2024 07/23/2023, 03/05/2023, 08/07/2022, Additional history exists Influenza for age 65+ 04/26/2024 09/05/2010 Tdap Completed 09/05/2010 Procedures Procedure Name Priority Date/Time Associated Diagnosis Comments XR FFDM MAMMO UNI ADDL VIEWS LEFT (IA) Routine 09/21/2010 3:23 PM GRINDER MILL OPERATOR Abnormal mammogram XR DXA BONE DENSITY 2 SITES AXIAL Routine 09/12/2010 3:26 PM GRINDER MILL OPERATOR Osteopenia from Last 3 Months or Most Recently Relevant to Health Maintenance Results * XR FFDM MAMMO UNI ADDL VIEWS LEFT (09/21/2010 3:23 PM GRINDER MILL OPERATOR) Anatomical Region Laterality Modality BREASTS, Breast Left Left Mammography Impressions 09/22/2010 8:59 AM GRINDER MILL OPERATOR ACR 0 Incomplete: Need Additional Imaging Evaluation and/or Prior Mammograms for Comparison. RECOMMENDATION: ??Left breast ultrasound. Narrative 09/22/2010 8:59 AM GRINDER MILL OPERATOR UNILATERAL LEFT BREAST FULL-FIELD DIGITAL MAMMOGRAM - ADDITIONAL VIEWS CLINICAL HISTORY: Abnormal mammogram. COMPARISON: Comparison made to the screening examination of 09/05/2010. FINDINGS: The asymmetric density at the 12:00 position of the left breast is again noted and probably represents asymmetric breast tissue but ultrasound will be performed for further evaluation. No suspicious clustered microcalcifications or architectural distortion is seen. Procedure Note Christian Bettencourt DO - 09/22/2010 UNILATERAL LEFT BREAST FULL-FIELD DIGITAL [...] BONE DENSITY 2 SITES (09/12/2010 3:26 PM GRINDER MILL OPERATOR) Anatomical Region Laterality Modality Spine, HIPS, HIPL, HIPR Other Narrative 09/21/2010 11:34 AM GRINDER MILL OPERATOR Please see scanned document for results of this study. Procedure Note Ivette Alfaro D - 09/21/2010 Please see scanned document for results of this study. Chitra Bruno MD DEXA from Last 3 Months or Most Recently Relevant to Health Maintenance Advance Directives * Full Code (Latest Code Status on File) Date Activated Date Inactivated Comments 09/21/2023 5:55 PM 10/02/2023 9:17 PM Question Answer Comments Code Status Discussion: Reviewed Preferences Care Teams Photo Cartographer Relationship Specialty Start Date End Date [place] [address] [address] PCP - General Family Practice 08/29/10
--- OUTSIDE RECORDS SUMMARY | 2024-05-25 10:00 | XMS_ITS | Encounter Summary ---
Author Organization [facility] Address [address] [place] [address] Care Team Providers Care Paint Laboratory Technician Name Role Phone Elsewhere, Pcp Primary Care Provider Unavailabl e Reason for Visit * Reason Comments Outpatient Infusion * Episode Based Medications (Routine) - Authorized Specialty Diagnoses / Procedures Referred By Contac t Referred To Contact Diagnoses Hypogammaglobulinemia (HCC) Other Combined Immunodeficiencies (HCC) Procedures [place] GAMMAGARD LIQUID INJ Mehreen Landis M.D. Rst [place] [address] [place] [address] Referral ID Status Reason Start Date Expiration Date V isits Requested Visits Authorized [id number] Authorized 10/17/2023 08/25/2024 12 12 Encounter Details Date Type Department Care Team (Latest Contact Info) Description 03/05/2024 1:15 PM CDT Infusion Department of Infusion Therapy in [place], [place] [address] [place] [place] [address] Mehreen Landis M.D. Hypogammaglobulinemia (HCC) (Primary Dx); Other Combined Immunodeficiencies (HCC) Social History Tobacco Use Types Packs/Day Years Used Date Smoking Tobacco: Never Smokeless Tobacco: Never Tobacco Cessation:Counseling Given: Not Answered Comments:I have never used tobacco. Alcohol Use Standard Drinks/Week Comments Never 0 (1 standard drink = 0.6 oz pur e alcohol) [facility] Utilities Answer Date Recorded In [...] declined 06/04/2022 How often do you attend [facility] center or buddhist services? Never 06/04/2022 Do you [...] care, and heating? Not very hard 06/04/2022 [facility]at ional [facility] - [...] Master's degree (e.g., MA, MS, Milly, MEd, DRAPERY OPERATOR, MADELYN) 06/04/2022 Sex and Gender Information [...] Body Mass Index 23.19 10/17/2023 12:17 PM CHIEF CONTROLLER TOWER documented in this encounter Plan of Treatment Upcoming Encounters Date Type Department Care Team (Latest Contact Info) Description 05/28/2024 1:15 PM CDT Infusion Department of Infusion Therapy in [address] [address] Mehreen Lnadis M.D. 06/04/2024 11:30 AM CDT Clinical Communication Virtual Review in [address] [phone] 06/05/2024 1:00 PM CDT Appointment Department of Radiology, [facility], in [address] [phone] Radha Keen APRN, C.N.P., M.S.N. [address] [place] [phone] 06/05/2024 3:00 PM CDT Office Visit Division of Thoracic Surgery in [address] [phone] Radha Keen APRN C.N.P., M.S.N. [address] [place] [phone] 06/11/2024 1:00 PM CDT Clinical Communication Virtual Review in [place], [place] 200 [place] [phone] 06/15/2024 1:30 PM CDT Office Visit Division of Allergic Diseases in [place], [place] [address] [place] [phone] Brayan Swain M.D., M.S. [address] [place] [phone] 06/22/2024 12:30 PM CDT Clinical Communication Virtual Review in [place], [place] 200 [place] [phone] 06/23/2024 1:30 PM CDT Comprehensive Visit Menopause and [facility] Sexual [facility] Clinic in [place], [place] [address] [place] [phone] Ada Day APRN, C.N.P., D.N.P. [address] [place] [phone] 06/25/2024 12:30 PM CDT Appointment Department of Laboratory Medicine and Pathology, [facility], in [address] [phone] Mehreen Landis M.D. 06/25/2024 1:15 PM CDT Infusion Department of Infusion Therapy in [address] [address] Mehreen Landis M.D. documented as of this [...] no weight indicated: Calculate dose based on [place] Body Weight (IBW). If Actual Body Weight [...] mL/hr documented in this encounter Care Teams Paint Laboratory Technician Relationship Specialty Start Date End Date Elsewhere, Pcp PCP - General 11/07/23 documented as of this encounter
--- OUTSIDE RECORDS SUMMARY | 2024-05-25 10:00 | XMS_ITS | Encounter Summary ---
Author Organization [facility] Address [address] [place] [address] Care Team Providers Care Bail Bond Agent Name Role Phone Elsewhere, Pcp Primary Care Provider Unavailabl e Reason for Referral * Outpatient (Routine) - Authorized Specialty Diagnoses / Procedures Referred By Contac t Referred To Contact Women's Health Diagnoses Immunodeficiency (HCC) Need Therapy Hormone Replacement Brayan Swain M.D., M.S. [address] [place] [phone] [facility] Referral ID Status Reason Start Date Expiration Date V isits Requested Visits Authorized [id number] Authorized 02/24/2024 08/25/2025 1 1 Reason for Visit * Outpatient (Routine) - Closed Specialty Diagnoses / Procedures Referred By Contac t Referred To Contact Allergy and Immunology Diagnoses Immunodeficiency (HCC) Xochitl Mccabe PYesikaAManuelCYesika [address] [place] [phone] [facility] Referral ID Status Reason Start Date Expiration Date V isits Requested Visits Authorized [id number] Closed Specialty Services Required 10/18/2023 04/18/2025 1 1 Encounter Details Date Type Department Care Team (Late st Contact Info) Description 02/24/2024 2:30 PM CDT Office Visit Division of Allergic Diseases in [place], [place] [address] [place] [phone] Brayan Swain M.D., M.S. [address] [place] [phone] Need Therapy Hormone Replacement (Primary Dx); Immunodeficiency (HCC) Social History Tobacco Use Types Packs/Day Years Used Date Smoking Tobacco: Never Smokeless Tobacco: Never Comments:I have never used t obacco. Alcohol Use Standard Drinks/Week Comments Never 0 (1 standard drink = 0.6 oz pur e alcohol) [facility] Utilities Answer Date Recorded In the past 12 months has e [place], gas, oil, or water [employer] threatened to shut off services in your [...] often do you attend chur ch or faith services? Never 06/04/2022 Do you belong to [...] hard 06/04/2022 [facility] of Occupat ional Health - Occupational [...] your living situation today? I have a [facility] place to live 11/08/2023 Education Answer Date Recorded What is the highest level of school you have completed or the highest degree you have received? Master's degree (e.g., MA, MS, Milly, MEd, CIRCUS ROUSTABOUT, MADELYN) 06/04/2022 Sex and Gender Information Value [...] in counseling. She moved with her to [place] where she tried in vitro fertilization but could not get . Finally, they were able to adopt a 6-week-old infant. Around this time, her was diagnosed with stage 4 non-Hodgkin's lymphoma. He underwent multiple therapies including stem cell transplantation and [id number]. She underwent extensive therapies and finally moved to [facility] in 2009 to be cl oser to [...] CDT Infusion Department of Infusion Therapy in [address] [place] [address] Mehreen Landis M.D. 06/04/2024 11:30 AM CDT Clinical Communication Virtual Review in [place], [place] 200 [place] [phone] 06/05/2024 1:00 PM CDT Appointment Department of Radiology, [facility], in [place], [place] [address] [place] [phone] Radha Keen APRN, C.N.P., M.S.N. [address] [place] [phone] 06/05/2024 3:00 PM CDT Office Visit Division of Thoracic Surgery in [place], [place] [address] [place] [phone] Radha Keen APRN, C.N.P., M.S.N. [address] [place] [phone] 06/11/2024 1:00 PM CDT Clinical Communication Virtual Review in [address] [phone] 06/15/2024 1:30 PM CDT Office Visit Division of Allergic Diseases in [address] [phone] Brayan Swain M.D., M.S. [address] [place] [phone] 06/22/2024 12:30 PM CDT Clinical Communication Virtual Review in [address] [phone] 06/23/2024 1:30 PM CDT Comprehensive Visit Menopause and [facility] Clinic in [address] [phone] Ada Day APRN, C.N.P., D.N.P. [address] [place] [phone] 06/25/2024 12:30 PM CDT Appointment Department of Laboratory Medicine and Pathology, [facility], in [place], [place] [address] [place] [phone] Mehreen Landis M.D. 06/25/2024 1:15 PM CDT Infusion Department of Infusion Therapy in [place], [place] [address] [place] [address] [place] [address] Mehreen Landis M.D. Scheduled Referrals Name Type Priority Associated Diagnoses Orde r Schedule Women's Health - Menopause consult (clinic) Outpatient Referral Routine Immunodeficiency (HCC) Need Therapy Hormone Replacement Expected: 02/24/2024, Expires: 05/26/2025 documented as of this encounter Results * Pulmonary Function Tests (03/31/2024 2:04 PM CDT) PostFVC 3.33 L 03/31/2024 4:43 PM CDT [facility] PostFEV1 2.66 L 03/31/2024 4:43 PM CDT [facility] FEV1/FVC POST 80.11 % 03/31/2024 4:43 PM CDT [facility] FEF 25-75 % POST 2.43 L/s 03/31/2024 4:43 PM CDT [facility] PEF POST 6.56 L/s 03/31/2024 4:43 PM CDT [facility] PIF POST 4.58 L/s 03/31/2024 4:43 PM CDT [facility] FEF 50 % FIF 50 POST 67.79 % 03/31/2024 4:43 PM CDT [facility] FET POST 4.21 sec 03/31/2024 4:43 PM CDT [facility] DLCO 13.43 ml/(min*mm Hg) 03/31/2024 4:43 PM CDT [facility] VA 4.56 L 03/31/2024 4:43 PM CDT [facility] PulseRest 79.00 1/min 03/31/2024 4:43 PM CDT [facility] D6PymNjva 97.00 % 03/31/2024 4:43 PM CDT [facility] PulseExer 96.00 1/min 03/31/2024 4:43 PM CDT [facility] EXER TIME 3.00 min 03/31/2024 4:43 PM CDT [facility] STEP HEIGHT PRE 9.00 Inch 03/31/2024 4:43 PM CDT [facility] TLC 5.84 L 03/31/2024 4:43 PM CDT [facility] FRCPLETH PROVBASE 4.06 L 03/31/2024 4:43 PM CDT [facility] RV 2.56 L 03/31/2024 4:43 PM CDT [facility] RV % TLC PRE 43.85 % 03/31/2024 4:43 PM CDT [facility] FVC 3.28 L 03/31/2024 4:43 PM CDT [facility] FEV1 2.48 L 03/31/2024 4:43 PM CDT [facility] FEV1/FVC 75.78 % 03/31/2024 4:43 PM CDT [facility] MFU54-03% 1.96 L/s 03/31/2024 4:43 PM CDT [facility] PEF PRE 6.44 L/s 03/31/2024 4:43 PM CDT [facility] PIF PRE 3.86 L/s 03/31/2024 4:43 PM CDT [facility] FEF 50 % FIF 50 PRE 84.44 % 03/31/2024 4:43 PM CDT [facility] FET PRE 6.10 sec 03/31/2024 4:43 PM CDT [facility] SUBSTANCE POST Albuterol 03/31/2024 4:43 PM CDT [facility] 03/31/2024 2:04 PM CDT Impressions [facility] - 03/31/2024 4:43 PM CDT Abnormal. [...] increased. Brayan Swain M.D., M.S. PFT ORDERABLES [facility] [address] * 25-Hydroxyvitamin D2 and D3 (02/24/2024 3:57 PM CDT) [facility] 25-Hydroxy D2 <4.0 ng/mL 02/26/2024 3:30 PM CDT [facility] 25-Hydroxy D3 78 ng/mL 02/26/2024 3:30 PM CDT [facility] 25-Hydroxy D Total 78 ng/mL 2023 3:30 PM CDT [facility] Comment: Interpretation: 51-80 ng/mL (increased risk of hypercalciuria) ----REFERENCE VALUE---- 25-HYDROXY D TOTAL (D2+D3) Optimum levels in the healthy population are 20-50. ----ADDITIONAL INFORMATION---- This test was developed and its performance characteristics determined by [facility] in a manner consistent with CLIA requirements. This test has not been cleared or approved by the U.S. Food and Drug Administration. Blood (Blood, Venous) 02/24/2024 3:57 PM CDT 02/25/2024 7:28 AM CDT Brayan Swain M.D., M.S. LAB BLOOD ADD-ON [facility] [address] [place] [address] [facility] [address] [place] [address] [place] [address] * (ABNORMAL) Quantitative Lymphocyte Subsets: T, B, and Natural Killer (NK) (02/24/2024 3:57 PM CDT) CD45 Total Lymph Count 0.66(L) 0.82 - 2.84 thou/[facility] 02/24/2024 11:19 PM CDT [facility] % [...] Its performance characteristics were determined by [facility] in a manner consistent with CLIA requirements. This test has not been cleared or approved by the U.S. Food and Drug Administration. Blood (Blood, Venous) 02/24/2024 3:57 PM CDT 02/24/2024 5:53 PM CDT Brayan Swain M.D., M.S. LAB BLOOD ADD-ON [facility] [address] [place] [address] [facility] [address] [place] [address] [place] [address] * (ABNORMAL) Immunoglobulins (IgG, IgA, and IgM) (02/24/2024 3:57 PM CDT) Immunoglobulin A (IgA), S 12(L) 61 - 356 mg/dL 02/25/2024 9:25 AM CDT [facility] Immunoglobulin M (IgM), S <5(L) 37 - 286 mg/dL 02/25/2024 9:25 AM CDT [facility] Immunoglobulin G (IgG), S 842 767 - 1590 mg/dL 02/25/2024 8:49 AM CDT [facility] Blood (Blood, Venous) 02/24/2024 3:57 PM CDT 02/25/2024 6:40 AM CDT Brayan Swain M.D., M.S. LAB BLOOD ADD-ON Performing Organization Address [facility] Co de Phone Number [facility] [address] [place] [address] [facility] [address] [place] [place] [address] * Ferritin (02/24/2024 3:57 PM CDT) Ferritin, S 21 11 - 328 mcg/L 02/24/2024 4:54 PM CDT DT Blood (Blood, Venous) 02/24/2024 3:57 PM CDT 02/24/2024 4:31 PM CDT Brayan Swain M.D., M.S. LAB BLOOD ADD-ON Performing Organization Address City/[facility]/ZIP Co de Phone Number [facility] [address] [place] [address], [place] DTL [facility] [address] [place] [address] * (ABNORMAL) CBC with Differential, Blood (02/24/2024 3:57 PM CDT) [facility] Hemoglobin 11.8 11.6 - 15.0 g/dL [...] - 6.45 x10(9)/L 02/24/2024 9:00 PM CDT [facility] Comment:Rechecked Lymphocytes 0.69(L) 0.95 - [...] Brayan Swain M.D., M.S. LAB BLOOD ADD-ON [facility] [address] [place] [address], [facility] DTL [facility] [address] [place] [address] [facility] [address] [place] [address] * (ABNORMAL) Comprehensive Metabolic Panel (02/24/2024 3:57 PM CDT) [facility] Potassium, S 4.7 3.6 - 5.2 [...] Brayan Swain M.D., M.S. LAB BLOOD ADD-ON [facility] [address] [place] [address], [facility] [address] [place] [address] documented in this encounter Visit Diagnoses Diagnosis Need Therapy Hormone Replacement- Primary Immunodeficiency (HCC) documented in this encounter Care Teams Bail Bond Agent Relationship Specialty Start Date End Date Elsewhere, Pcp PCP - General 11/07/23 documented as of this encounter
--- OUTSIDE RECORDS SUMMARY | 2024-05-25 10:00 | XMS_ITS | Encounter Summary ---
Author Organization [facility] Address [address] [place] [address] Care Team Providers Care Insurance Verify Rep Name Role Phone Elsewhere, Pcp Primary Care Provider Unavailabl e Reason for Visit * Episode Based Medications (Routine) - Authorized Specialty Diagnoses / Procedures Referred By Contac t Referred To Contact Diagnoses Hypogammaglobulinemia (HCC) Other Combined Immunodeficiencies (HCC) Procedures [place] GAMMAGARD LIQUID INJ Mehreen Landis M.D. Rst Sheree [place] [address] [place] [phone] Referral ID Status Reason Start Date Expiration Date V isits Requested Visits Authorized [id number] Authorized 10/17/2023 08/25/2024 12 12 Encounter Details Date Type Department Care Team (Latest Contact Info) Description 04/02/2024 1:15 PM CDT Infusion Department of Infusion Therapy in [place], [place] [address] [facility] [address] [place], [place] [phone] Mehreen Landis M.D. Other Combined Immunodeficiencies (HCC) (Primary Dx); Hypogammaglobulinemia (HCC) Discharge Disposition: Home or Self Care Social History Tobacco Use Types Packs/Day Years Used Date Smoking Tobacco: Never Smokeless Tobacco: Never Comments:I have never used t obacco. Alcohol Use Standard Drinks/Week Comments Never 0 (1 standard drink = 0.6 oz pur e alcohol) [facility] Utilities Answer Date Recorded In the [...] declined 06/04/2022 How often do you attend [facility] or anglican services? Never 06/04/2022 Do you [...] you are drinking? Patient does not drink 10/10/202 2 Q3: How often do you have si x or more drinks on one occasion? Never 06/04/2022 Overall Financial Resource Strain (CARDIA) Answe r Date Recorded How hard is it for you to pa y for the very basics like food, housing, medical care, and heating? Not very hard 06/04/2022 [facility] of Occupat ional Health - Occupational Stress [...] Master's degree (e.g., MA, MS, Milly, MEd, REELER OPERATOR, MADELYN) 06/04/2022 Sex and Gender Information [...] Body Mass Index 23.29 10/17/2023 12:17 PM RADIOLOGIC TECHNOLOGY INSTRUCTOR documented in this encounter Plan of Treatment Upcoming Encounters Date Type Department Care Team (Latest Contact Info) Description 05/28/2024 1:15 PM CDT Infusion Department of Infusion Therapy in [address] [address] Mehreen Landis M.D. 06/04/2024 11:30 AM CDT Clinical Communication Virtual Review in [address] [phone] 06/05/2024 1:00 PM CDT Appointment Department of Radiology, [facility], in [address] [phone] Radha Keen APRN, C.N.P., M.S.N. [address] [place] [phone] 06/05/2024 3:00 PM CDT Office Visit Division of Thoracic Surgery in [address] [phone] Radha Keen APRN C.N.P., M.S.N. [address] [place] [phone] 06/11/2024 1:00 PM CDT Clinical Communication Virtual Review in [place], [place] 200 [place] [phone] 06/15/2024 1:30 PM CDT Office Visit Division of Allergic Diseases in [place], [place] [address] [place] [phone] Brayan Swain M.D., M.S. [address] [place] [phone] 06/22/2024 12:30 PM CDT Clinical Communication Virtual Review in [place], [place] 200 [place] [phone] 06/23/2024 1:30 PM CDT Comprehensive Visit [facility] in [place], [place] [address] [place] [phone] Ada Day APRN, C.N.P., D.N.P. [address] [place] [phone] 06/25/2024 12:30 PM CDT Appointment Department of Laboratory Medicine and Pathology, [facility], in [address] [phone] Mehreen Landis M.D. 06/25/2024 1:15 PM CDT Infusion Department of Infusion Therapy in [address] [address] Mehreen Landis M.D. documented as of this [...] no weight indicated: Calculate dose based on [place] Body Weight (IBW). If Actual Body Weight [...] mL documented in this encounter Care Teams Insurance Verify Rep Relationship Specialty Start Date End Date Elsewhere, Pcp PCP - General 11/07/23 documented as of this encounter
--- OUTSIDE RECORDS SUMMARY | 2024-05-25 10:00 | XMS_ITS | Encounter Summary ---
Author Organization [facility] Address [address] [place] [address] Care Team Providers Care Shoe Packer Name Role Phone Elsewhere, Pcp Primary Care Provider Unavailabl e Reason for Visit * Reason Onset Date Comments Letter for outside providers and Valtrex 024 Encounter Details Date Type Department Care Team (Latest Contact Info) Description 03/23/2024 Clinical Communication Division of Allergic Diseases in [place], [place] [address] [place] [address] Brayan Swain M.D., M.S. [address] [place] [phone] Letter for outside providers and [employer]alt[employer] Social History Tobacco Use Types Packs/Day Years Used Date Smoking Tobacco: Never Smokeless Tobacco: Never Comments:I have never used t obacco. Alcohol Use Standard Drinks/Week Comments Never 0 (1 standard drink = 0.6 oz pur e alcohol) [facility] Utilities Answer Date Recorded In the past 12 months has [employer], [employer], or [employer] threatened to shut off services in your [...] and heating? Not very hard 06/04/2022 [facility] - Occupational Stress [...] your living situation today? [facility] 11/08/2023 Education Answer Date Recorded What is the highest level of school you have completed or the highest degree you have received? Master's degree (e.g., MA, MS, Milly, MEd, THREAD PULLING MACHINE ATTENDANT, MADELYN) 06/04/2022 Sex and Gender Information Value Date Recorded Sex Assigned at Female 06/04/2022 4:58 PM CDT Gender Identity Female 06/04/2022 4:58 PM CDT Sexual Orientation Straight 06/04/2022 4: 58 PM CDT documented as of this encounter Plan of Treatment Upcoming Encounters Date Type Department Care Team (Latest Contact Info) Description 05/28/2024 1:15 PM CDT Infusion Department of Infusion Therapy in [place], [place] [address] [facility] [place] [address] Mehreen Landis M.D. 06/04/2024 11:30 AM CDT Clinical Communication Virtual Review in [place], [place] 200 [place] [phone] 06/05/2024 1:00 PM CDT Appointment Department of Radiology, [facility], in [place], [place] [address] [place] [phone] Radha Keen APRN, C.N.P., M.S.N. [address] [place] [phone] 06/05/2024 3:00 PM CDT Office Visit Division of Thoracic Surgery in [address] [phone] Radha Keen APRN, Sandip.N.P., M.S.N. [address] [place] [phone] 06/11/2024 1:00 PM CDT Clinical Communication Virtual Review in [address] [phone] 06/15/2024 1:30 PM CDT Office Visit Division of Allergic Diseases in [place], [place] [address] [place] [phone] Brayan Swain M.D., M.S. [address] [place] [phone] 06/22/2024 12:30 PM CDT Clinical Communication Virtual Review in [address] [phone] 06/23/2024 1:30 PM CDT Comprehensive Visit [facility] in [place], [place] [address] [place] [phone] Ada Day APRN, C.N.P., AliciaN.P. [address] [place] [address] 06/25/2024 12:30 PM CDT Appointment Department of Laboratory Medicine and Pathology, [facility], in [address] [phone] Mehreen Landis M.D. 06/25/2024 1:15 PM CDT Infusion Department of Infusion Therapy in [address] [address] Mehreen Landis M.D. documented as of this encounter Visit Diagnoses Not on filedocumented in this encounter Care Teams Shoe Packer Relationship Specialty Start Date End Date Elsewhere, Pcp PCP - General 11/07/23 documented as of this encounter
--- OUTSIDE RECORDS SUMMARY | 2024-05-25 10:00 | XMS_ITS | Encounter Summary ---
Author Organization [facility] Address [address] [place] [address] Care Team Providers Care Floor Supervisor Name Role Phone Elsewhere, Pcp Primary Care Provider Unavailabl e Reason for Visit * Episode Based Medications (Routine) - Authorized Specialty Diagnoses / Procedures Referred By Contac t Referred To Contact Diagnoses Hypogammaglobulinemia (HCC) Other Combined Immunodeficiencies (HCC) Procedures OR GAMMAGARD LIQUID INJ Mehreen Landis M.D. Rst Ali Nancy [address] [place] [address] Referral ID Status Reason Start Date Expiration Date V isits Requested Visits Authorized [id number] Authorized 10/17/2023 08/25/2024 12 12 Encounter Details Date Type Department Care Team (Latest Contact Info) Description 04/02/2024 12:26 PM CDT - 04/02/2024 11:59 PM CDT Hospital Encounter Department of Laboratory Medicine and Pathology, [facility], in [place], [place] [address] [place] [address] Mehreen Landis M.D. Hypogammaglobulinemia (HCC); Other Combined Immunodeficiencies (HCC) Discharge Disposition: Home or Self Care Social History Tobacco Use Types Packs/Day Years Used Date Smoking Tobacco: Never Smokeless Tobacco: Never Comments:I have never used t obacco. Alcohol Use Standard Drinks/Week Comments Never 0 (1 standard drink = 0.6 oz pur e alcohol) [facility] Utilities Answer Date Recorded In the past 12 months has e [employer], [employer], [employer], or water [employer] threatened to shut off services in your [...] How often do you attend [facility] or protestant services? Never 06/04/2022 Do you [...] hard 06/04/2022 [facility] - [facility]ational Stress Questionnaire Answer [...] Master's degree (e.g., MA, MS, Milly, MEd, MORTGAGE ACCOUNTING CLERK, MADELYN) 06/04/2022 Sex and Gender Information [...] do not swallow. 100 mL 2 10/18/2023 vydtcizxtppc-opbceisk-fl tein (CENTURY MATURE) tablet Take 1 tablet [...] CDT Infusion Department of Infusion Therapy in [place], [place] [address] [place] [address] Mehreen Landis M.D. 06/04/2024 11:30 AM CDT Clinical Communication Virtual Review in [address] [phone] 06/05/2024 1:00 PM CDT Appointment Department of Radiology, [facility], in [place], [place] [address] [place] [phone] Radha Keen APRN, C.N.P., M.S.N. [address] [place] [phone] 06/05/2024 3:00 PM CDT Office Visit Division of Thoracic Surgery in [address] [phone] Radha Keen APRN C.N.P., M.S.N. [address] [place] [phone] 06/11/2024 1:00 PM CDT Clinical Communication Virtual Review in [address] [phone] 06/15/2024 1:30 PM CDT Office Visit Division of Allergic Diseases in [place], [place] [address] [place] [phone] Brayan Swain M.D., M.S. [address] [place] [phone] 06/22/2024 12:30 PM CDT Clinical Communication Virtual Review in [place], [place] [address] [place] [phone] 06/23/2024 1:30 PM CDT Comprehensive Visit [facility] in [place], [place] [address] [place] [address] Ada Day APRN, C.N.P., D.N.P. [address] [place] [address] 06/25/2024 12:30 PM CDT Appointment Department of Laboratory Medicine and Pathology, [facility], in [place], [place] [address] [place] [phone] Mehreen Landis M.D. 06/25/2024 1:15 PM CDT Infusion Department of Infusion Therapy in [place], [place] [address] [place] [address] Mehreen Landis M.D. documented as of this encounter Procedures Procedure Name Priority Date/Time Associated Diagnosis Comments IMMUNOGLOBULIN G (IGG), S Routine 04/02/2024 12:31 PM CDT Hypogammaglobulinemia (HCC) Other Combined Immunodeficiencies (HCC) documented in this encounter Results * (ABNORMAL) Immunoglobulin G (IgG) (04/02/2024 12:31 PM CDT) Immunoglobulin G (IgG), S 711(L) 767 - 1590 mg/dL 04/03/2024 9:51 AM CDT [facility] Blood (Blood, Venous) 04/02/2024 12:31 PM CDT 04/03/2024 6:22 AM CDT Mehreen Landis M.D. LAB BLOOD ADD-ON [facility] [address] [place] [address] [facility] [address] [place] [address] documented in this encounter Visit Diagnoses Diagnosis Hypogammaglobulinemia (HCC) Other Combined Immunodeficiencies (HCC) documented in this encounter Care Teams Floor Supervisor Relationship Specialty Start Date End Date Elsewhere, Pcp PCP - General 11/07/23 documented as of this encounter
--- OUTSIDE RECORDS SUMMARY | 2024-05-25 10:00 | XMS_ITS | Data Portability ---
Author Organization [facility] Address [address] [place] [address] [address] [place] [address] Care Team Providers Care Sales Lead Generator Name Role Phone BRUCE FORREST Primary Care Provider FLORA KEMP Referring Provider [phone] NIKO CRISOSTOMO Primary Care Provider Assessment No assessment recorded. Plan of Treatment Reminders Order Date Submit Date Provider Last Modified By Organization Details Last Modified Time Details Appointments None recorded. Lab None recorded. Referral None recorded. Procedures None recorded. Surgeries None recorded. Imaging None recorded. Medication Orders triamcinolo ne acetonide 0.1 % dental paste 2022 023 [facility] [address], [address], 15:33:29 dexamethaso ne 0.5 mg/5 mL oral elixir 2022 023 [facility] [address] In [employer], [address] [place] [address], [address], 15:33:28 Patient TargetsNo targets recorded. Patient Instructions Encounter Date Encounter Id Patient Instructions Last Modified By Organization Details Last Modified Time 01/16/2023 [id number] canker sore: car e instructions jbarss Not [...] subsides. I also recommended she see a Agency Trainer for an evaluation. She knows to reach [...] Details Recorded Time procedure on lung completed Rea Pace [facility] 01/16/2023 14:30:06 Imaging Results None recorded. Procedure Notes None recorded. Medical Equipment None Reported. Allergies Allergen ID Allergen Name Allergen Category Reaction Reaction Severity Criticality Documentation Date Start Date Code Code System Note Provider Name and Address Organization Details Recorded Time 77599 Medicinal product containin g penicilli n and acting as antibacte rial agent (product) medicatio n Not available Not available Not available 01/16/2023 49718 05 SNOMED Rea ventura [facility] 3 14:38:42 11379 Substance with sulfonami de structure and antibacte rial mechanism of action (substanc e) medicatio n Not available Not available Not available 01/16/2023 60983 8003 SNOMED NEDA [facility] 3 14:38:49 [...] 73 /min 118 mm[Hg] 63 mm[Hg] [facility] 01/16/2023 14:37:47 Social History Question Answer Notes LastModified by Organizat ion Details LastModified Time Tobacco Smoking Status Never Smoker NEDA [facility] 01/16/2023 14:41:43 [...] Age of this Age Resolved Age Notes LastModified by Organization Details LastModified Time Father No current problems or disability [email or web address] Not available 12/25 14:41:02 Mother No current problems or disability [email or web address] Not available 12/25 14:41:02 Medical History Condition Response Coronary Artery Disease N Other N Gout N Chronic fatigue syndrome N Hyperthyroidism N Premenstrual syndrome (PMS) N MRSA N Head Trauma/Injury N Emphysema N Irritable bowel syndrome N Hypothyroidism N Lung Disease N Glaucoma N COPD N Depression Y Pneumonia Y Pacemaker N [...] Meningitis N Pancreatic disease N Heart Attack ([place]) N Stomach Ulcers N Diabetes N Back [...] Encounter Closed Date Diagnosis/Indication Diagnosis SNOMED-CT Code Diagnosis ICD10 Code [id number] Helena Villalta DDS [address] [place] [address] 01/16/2023 14:17:38 01/16/2023 15:33:21 Aphthous ulcer of mouth 424941308 K12.0 Health Concerns Section Related Observation LastModified by Organization Detai ls LastModified Time None Recorded Concern Status LastModified by Organization Details LastModified Time None Recorded Advance Directives Directive None Recorded Payers Encounter Date Sequence Insurance Name Policy Number Policy Guevara Covered Member ID Guevara Member ID Guarantor Name 01/16/2023 1 [employer] - DOS ON OR AFTER 19 (MEDICARE REPLACEMENT/ ADVANTAGE - HMO) [id number] Alexia Phillips [id number] Alexia Jacqueline Notes Date Note Type Note Provider Name [...] last jul 2023. Helena Villalta DDS [address] [address], [place], [address], [facility] 01/16/2023 22:21:14 OBGyn Episode No OBEpisode recorded.
--- NOTE | 2024-05-25 11:03 | W.ANESCHARGE ---
Anesthesia Charges Start Date/Time Anesthesia Start Date: 05/25/24 Anesthesia Start Time: 10:40 Stop Date/Time Anesthesia Stop Date: 05/25/24 Anesthesia Stop Time: 11:01
--- NOTE | 2024-05-25 11:08 | W.ANESCHARGE ---
Anesthesia Charges Start Date/Time Anesthesia Start Date: 05/25/24 Anesthesia Start Time: 10:40 Stop Date/Time Anesthesia Stop Date: 05/25/24 Anesthesia Stop Time: 11:01 Summary Extremes of Age - Over 70 or under 1: MDA
== END 2024-05-25 09:58 | disposition home or self-care (01) ==
LOC: OP CLINIC 09:57
PROVIDERS: PCP Family Medicine; Visit Provider Internal Medicine
DX: K28.9 Gastrojejunal ulcer, unspecified as acute or chronic, without hemorrhage or perforation (principal)
CPT/HCPCS: 00731; 43235; 99100; J2704

== ENCOUNTER 2024-07-07 14:42 | Outpatient (CLI) | payer MEDICARE, SELFPAY ==
--- OUTSIDE RECORDS SUMMARY | 2024-07-07 14:47 | XMS_ITS | Clinical Summary ---
Author Organization [facility] Address [address] [place] [address] Care Team Providers Care Office Clin Asst Name Role Phone Elsewhere, Pcp Primary Care Provider Unavailabl e Source Comments Patient records contain information from all sites at [facility]. For routine questions regarding patient records, call [phone] during business hours, M-F 8:00 AM - 5:00 PM Central Time. Record requests for emergency care only can be directed to [phone] at any time.[facility] Allergies Active Allergy Reactions Criticality Noted Date Comments Cephalexin Rash High 10/28/2023 ED visit 10/28/23 Penicillin V Rash Low 10/28/2023 Penicillins Rash Medium 09/05/2010 Sulfa (Sulfonamide Antibiotics) Rash Low 08/26 Medications * This document contains information received from the source organization and may not represent a complete record from that organization. estradioL (ESTRACE) 0.5 mg tablet Take 0.75 mg by mouth daily. 2 Active multivitamin-mi nerals-lutein (CENTURY MATURE) tablet Take 1 tablet by mouth daily. Active calcium-vitamin D3-vitamin K (VIACTIV) 650 mg-12.5 mcg (500 Unit)-40 mcg tablet,chewable per chewable tablet Chew 1 tablet 2 (two) times a day with meals. Active acetaminophen (TYLENOL) 500 mg tablet Take 1-2 tablets (500-1,000 mg total) by mouth every 6 (six) hours as needed (pain). 3 Active omeprazole (PriLOSEC) [address] capsule Take 10 mg by mouth daily. 06/22/24-Curre ntly tapering off this medication. 4 Active docusate sodium 100 mg capsule Take 2 tablets (200 mg total) by mouth 2 (two) times a day as needed for constipation. 4 Active valACYclovir (VALTREX) 500 mg tablet Take 1 tablet (500 mg total) by mouth 2 (two) times a day. 180 tablet 4 Active lidocaine viscous (XYLOCAINE) 2 % mucosal solution Apply 15 mL to the mouth or throat 4 (four) times a day after meals and bedtime. Swish and spit, do not swallow. 100 mL 2 4 Active B complex-vitamin C (SUPERPLEX-T) per tablet Take 1 tablet by mouth 2 (two) times a week. Mon & Wed Active diphenhydrAMINE -lidocaine-anta maryana (Magic Mouthwash) 1:1:1 Take 10 mL by mouth as needed. 4 Active sulfamethoxazol e-trimethoprim (Bactrim) 400-80 mg per tablet Take 1 tablet by mouth daily. 90 tablet 3 4 Active diphenhydrAMINE (BenadryL) 25 mg tablet Take 25 mg by mouth. Prior to infusions as directed Active cholecalciferol (Vitamin D3) 50 mcg (2,000 Unit) capsule Take 50 mcg by mouth daily. Active glucosamine HCl/chondroitin merchant (GLUCOSAMINE-CH ONDROITIN ORAL) Take 2 tablets by mouth daily. 1500 - 1200 Active ZINC SULFATE ORAL Take 220 mg by mouth 2 (two) times a week. 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 06/25/2024 1:15 PM CDT Infusion Department of Infusion Therapy in [address] [address] Mehreen Landis M.D. Hypogammaglobulinemia (HCC) (Primary Dx); Other Combined Immunodeficiencies (HCC) Discharge Disposition: Home or Self Care 06/25/2024 12:16 PM CDT - 06/25/2024 11:59 PM CDT Hospital Encounter Department of Laboratory Medicine and Pathology, [facility], in [address] [phone] Mehreen Landis M.D. Hypogammaglobulinemia (HCC); Other Combined Immunodeficiencies (HCC); Immunodeficiency (HCC); Bronchiectasis (HCC); Burning Mouth Syndrome Discharge Disposition: Home or Self Care 06/23/2024 3:20 PM CDT - 06/23/2024 11:59 PM CDT Hospital Encounter Department of Laboratory Medicine and Pathology, [facility] in [place], [place] [address] [place] [address] Ada Day APRN, C.N.P., D.N.P. Hormone Therapy Status Discharge Disposition: Home or Self Care 06/23/2024 2:45 PM CDT Education [facility] in [place], [place] [address] [place] [phone] Ada Day APRN, C.NCasandra., D.N.P. Jodee Juan R.N. Menopause Surgical 06/23/2024 1:30 PM CDT Comprehensive Visit [facility] in [place], [place] [address] [place] [phone] Ada Day APRN, C.N.P., D.N.P. Menopause Surgical (Primary Dx); Symptoms Vasomotor; Immunodeficiency (HCC); Hormone Therapy Status 06/22/2024 12:30 PM CDT Clinical Communication Virtual Review in [address] [phone] Pre-visit Intake 06/15/2024 1:30 PM CDT Office Visit Division of Allergic Diseases in [place], [place] [address] [place] [phone] Brayan Swain M.D., M.S. Immunodeficiency (HCC) (Primary Dx); Bronchiectasis (HCC); Burning Mouth Syndrome 06/05/2024 3:00 PM CDT Office Visit Division of Thoracic Surgery in [place], [place] [address] [place] [phone] Radha Keen APRN, C.NCasandra., M.S.N. Thymoma (Primary Dx) 06/05/2024 12:52 PM CDT - 06/05/2024 11:59 PM CDT Hospital Encounter Department of Radiology, [facility], in [place], [place] [address] [place] [phone] Radha Keen APRN, C.NYesikaPYesika, M.S.N. Thymoma Discharge Disposition: Home or Self Care 06/04/2024 11:30 AM CDT Clinical Communication Virtual Review in [place], [place] [address] [place] [address] 05/28/2024 1:15 PM CDT Infusion Department of Infusion Therapy in [address] [place] [address] Mehreen Landis M.D. Other Combined Immunodeficiencies (HCC) (Primary Dx); Hypogammaglobulinemia (HCC) 05/11/2024 1:00 PM CDT Clinical Communication Virtual Review in [place], [place] [address] [place] [address] Pre-visit Intake 05/11/2024 Clinical Communication Division of Thoracic Surgery in [place], [place] [address] [place] [address] Lázaro Claudio M.D., Ph.D. 04/30/2024 1:00 PM CDT Infusion Department of Infusion Therapy in [place], [place] [address] [place] [address] Mehreen Landis M.D. Hypogammaglobulinemia (HCC) (Primary Dx); Other Combined Immunodeficiencies (HCC) Discharge Disposition: Home or Self Care from Last 3 Months Immunizations Name Administration Dates Next Due Influenza high dose QV(65 ye ars or older) (PF) 06/09/2021 Influenza, Quadrivalent, Adj uvanted, Preservative Free 06/28/2023,06/25/2022 Influenza, Seasonal, Injectable 09/05/2010 PCV13 04/08/2020,01/03/2018 PPSV23 02/03/2019 SARS-COV-2 (COVID-19) - PFIZ ER (Discontinued)(12 years or older) 07/11/2021,11/26/2020,11/05/2020 Tdap 05/07/2023,06/23/2012,09/05/2010 influenza trivalent high dos e (HD)(PF) 05/13/2019,07/09/2018 influenza trivalent vaccine (6 months and older)(PF) 07/20/2014,06/25/2013,06/23/2012,2010 influenza vaccine QV(FLUBLOK ) (18 years or older) (PF) 06/26/2022 influenza vaccine quad (FLUZONE/FLUARIX) (6 months and older)(PF) 05/26/2019,05/31/2017 Family History Medical History Relation Name Comments Arthritis Brother Abraham knees Sleep apnea Brother Abraham Bladder cancer Father Antonio Coronary artery disease Father Antonio atri al fibrillation Hypertension Father Antonio Other cancer Father Antonio bladder Ovarian cancer Mother Sandra Coronary artery disease Paternal Grandfather Sandra Heart attack Paternal Grandfather Sandra Parkinson disease Paternal Grandfather Sandra Thyroid disease Sister Rea Relation Name Status Comments Brother Abraham Father Antonio Mother Sandra Paternal Grandfather Sandra Sister Rea Social History Tobacco Use Types Packs/Day Years Used Date Smoking Tobacco: Never Passive Smoke Exposure: Never Smokeless Tobacco: Never Tobacco Cessation:Counseling Given: Not Answered Comments:I have never used tobacco. Alcohol Use Standard Drinks/Week Comments Never 0 (1 standard drink = 0.6 oz pur e alcohol) [facility] Utilities Answer Date Recorded In the past 12 months has e [employer], gas, oil, or water [employer] threatened to shut off services in your [...] any clubs o r organizations such as pentecostalism groups, unions, fraternal or athletic groups, [...] care, and heating? Not very hard 06/04/2022 [facility] [place] of Occupat ional Health - Occupational Stress [...] your living situation today? I have a [facility] place to live 11/08/2023 Education Answer Date Recorded What is the highest level of school you have completed or the highest degree you have received? Master's degree (e.g., MA, MS, Milly, MEd, KEY ACCOUNT REPRESENTATIVE, MADELYN) 06/04/2022 Comments No Sex and Gender Information Value Date Recorded Sex Assigned at Female 06/04/2022 4:58 PM CDT Legal Sex Female 2:16 PM CDT Gender Identity Female 06/04/2022 4:58 PM CDT Sexual Orientation Straight 06/04/2022 4: 58 PM CDT Last Filed Vital Signs Vital Sign Reading Time Taken Comments Blood Pressure 119/49 06/25/2024 4:34 PM CDT Pulse 66 06/25/2024 4:34 PM CDT Temperature 36.7 ??C (98.1 ??F) 06/25/2024 4:34 PM CD T Respiratory Rate 16 06/25/2024 4:34 PM CDT Oxygen Saturation 96% 10/18/2023 3:45 PM 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 08/04/2024 4:00 PM FENCE ERECTOR SUPERVISOR Comprehensive Visit Division of Pulmonary Medicine in [place], [place] [address] [place] [phone] Simon Mcnulty M.D., M.P.H. [address] [place] [address] 08/14/2024 1:15 PM FENCE ERECTOR SUPERVISOR Infusion Department of Infusion Therapy in [place], [place] [address] [place] [address] Mehreen Landis M.D. 09/07/2024 1:20 PM FENCE ERECTOR SUPERVISOR Comprehensive Visit Department of Dermatology in [place], [place] [address] [place] [phone] Sanjana Sahu M.D. [address] [place] [phone] Health Maintenance Due Date Last Done Comments CT Colonography 1952 Cologuard 1952 Colonoscopy 1952 Colorectal Cancer Screening 1952 FIT 1952 Hepatitis C Screening 1950 Mammogram 1952 Zoster Vaccines (1 of 2) 1971 RSV vaccine - (32-36 weeks) or 60+ years (1 - Risk 60-74 years 1-dose series) 2012 Depression Screening (Annual PHQ-2) 08/26/2023 COVID-19 Vaccine ( season) 2024 07/23/2023, 03/05/2023, 08/07/2022, Additional history exists Influenza Vaccine (#1) 2024 , 06/26/2022, 06/25/2022, Additional history exists Fasting Glucose for Diabetes Screening 06/25/2027 06/25/2024, 06/25/2024, 02/24/2024, Additional history exists DTaP,Tdap,and Td Vaccines (4 - Td or Tdap) 05/07/2033 05/07/2023, 06/23/2012, 09/05/2010 Pneumococcal vaccine (65+ years) Completed 04/08/2020, 02/03/2019, 01/03/2018 Fall Risk Screen (Annual) Completed 06/25/2024 IPV Vaccines Aged Out No longer eligi ble based on patient's age to complete this topic Medical Devices Implanted Type Area Candles Pourer Device Identifier Shelf Expiration Date Model / Serial / Lot Wax Bn Nblbl 2.5gr - [id number] Implanted:Qty : 1 on 08/22/2022 by Lázaro Claudio M.D., Ph.D. at [facility] Hardware e.g. pins/screws/r ods [employer] 901 / / Clp Hrzn Ti 6 Clp Lg Orng - [id number] Implanted:Qty : 1 on 08/22/2022 by Lázaro Claudio M.D., Ph.D. at [facility] Hardware e.g. pins/screws/r ods [employer] [id number] 04/16/2027 [id number] / / [id number] Clp Hrzn Ti 24 Clp Md Nima - [id number] Implanted:Qty : 1 on 08/22/2022 by Lázaro Claudio M.D., Ph.D. at [facility] Hardware e.g. pins/screws/r ods [employer] [id number] 04/16/2027 [id number] / / [id number] Clp Hrzn Ti 6 Clp Lg Orng - [id number] Implanted:Qty : 1 on 08/22/2022 by Lázaro Claudio M.D., Ph.D. at [facility] Hardware e.g. pins/screws/r ods [employer] [id number] 04/16/2027 [id number] / / [id number] Clp Hrzn Ti 6 Clp Md Nima - [id number] Implanted:Qty : 1 on 08/22/2022 by Lázaro Claudio M.D., Ph.D. at [facility] Hardware e.g. pins/screws/r ods Right: Chest [employer] [id number] 01/07/2027 [id number] / / [id number] Clp Hrzn Ti 6 Clp Md Nima - [id number] Implanted:Qty : 1 on 08/22/2022 by Lázaro Claudio M.D., Ph.D. at [facility] Hardware e.g. pins/screws/r ods Right: Chest [employer] [id number] 01/07/2027 [id number] / / [id number] Clp Hrzn Ti 6 Clp Lg Orng - [id number] Implanted:Qty : 1 on 08/22/2022 by Lázaro Claudio M.D., Ph.D. at [facility] Hardware e.g. pins/screws/r ods Right: Chest [employer] [id number] 02/19/2027 [id number] / / [id number] Clp Hrzn Ti 6 Clp Md Nima - [id number] Implanted:Qty : 1 on 08/22/2022 by Lázaro Claudio M.D., Ph.D. at [facility] Hardware e.g. pins/screws/r ods Right: Chest [employer] [id number] 01/07/2027 [id number] / / [id number] Clp Hrzn Ti 6 Clp Md Nima - [id number] Implanted:Qty : 1 on 08/22/2022 by Lázaro Claudio M.D., Ph.D. at [facility] Hardware e.g. pins/screws/r ods Right: Chest [employer] [id number] 04/09/2027 [id number] / / [id number] Clp Hrzn Ti 24 Clp Md Nima - [id number] Implanted:Qty : 1 on 08/22/2022 by Lázaro Claudio M.D., Ph.D. at [facility] Hardware e.g. pins/screws/r ods Right: Chest [employer] [id number] 04/16/2027 [id number] / / [id number] Clp Hrzn Ti 24 Clp Md Nima - [id number] Implanted:Qty : 1 on 08/22/2022 by Lázaro Claudio M.D., Ph.D. at [facility] Hardware e.g. pins/screws/r ods Right: Chest [employer]flex [facility] [id number] 04/16/2027 [id number] / / [id number] Imaging Marker Imaging Marker Right: Arm Description:Patient thinks s he has an imaging marker in place. Ocular Lens Ocular Lens Bilatera l: Eye Orthopedic Other Orthopedic Other Right: Wrist Description:Titanium Plate i n the right wrist. Procedures Procedure Name Priority Date/Time Associated Diagnosis Comments ZINC, S Routine 06/25/2024 12:28 PM CDT Burning Mouth Syndrome HEMOGLOBIN A1C, B Routine 06/25/2024 12:28 PM CDT Burning Mouth Syndrome CBC WITH DIFFERENTIAL, B Routine 06/25/2024 12:28 PM CDT Immunodeficiency (HCC) Bronchiectasis (HCC) QN LYMPHOCYTE SUBSETS: T, B, AND NK, B Routine 06/25/2024 12:28 PM CDT Immunodeficiency (HCC) C-REACTIVE PROTEIN (CRP), S/P Routine 06/25/2024 12:27 PM CDT Burning Mouth Syndrome SS-B/LA ABS, IGG, S Routine 06/25/2024 12:27 PM CDT Burning Mouth Syndrome SS-A/RO ABS, IGG, S Routine 06/25/2024 12:27 PM CDT Burning Mouth Syndrome THYROID FUNCTION CASCADE, S Routine 06/25/2024 12:27 PM CDT Burning Mouth Syndrome ANTINUCLEAR ABS (DIONNE), S Routine 06/25/2024 12:27 PM CDT Burning Mouth Syndrome VITAMIN B12 ASSAY, S Routine 06/25/2024 12:27 PM CDT Burning Mouth Syndrome FOLATE, S Routine 06/25/2024 12:27 PM CDT Burning Mouth Syndrome MAGNESIUM, S Routine 06/25/2024 12:27 PM CDT Burning Mouth Syndrome THIAMIN (VITAMIN B1), B Routine 06/25/2024 12:27 PM CDT Burning Mouth Syndrome 25-HYDROXYVITAMIN D2 AND D3, S Routine 06/25/2024 12:27 PM CDT Immunodeficiency (HCC) Bronchiectasis (HCC) FERRITIN, S Routine 06/25/2024 12:27 PM CDT Immunodeficiency (HCC) Bronchiectasis (HCC) COMPREHENSIVE METABOLIC PANEL, S/P Routine 06/25/2024 12:27 PM CDT Immunodeficiency (HCC) Bronchiectasis (HCC) IMMUNOGLOBULIN G (IGG), S Routine 06/25/2024 12:27 PM CDT Hypogammaglobulinemia (HCC) Other Combined Immunodeficiencies (HCC) VITAMIN B6 PROF (PLP AND PA), P Routine 06/25/2024 12:26 PM CDT Burning Mouth Syndrome RIBOFLAVIN (VITAMIN B2), P Routine 06/25/2024 12:26 PM CDT Burning Mouth Syndrome ESTRADIOL, S Routine 06/23/2024 3:30 PM CDT Hormone Therapy Status CT CHEST WITH IV CONTRAST RAD - Routine (most inpatients and all outpatients) 06/05/2024 2:02 PM CDT Thymoma from Last 3 Months Results * (ABNORMAL) Quantitative Lymphocyte Subsets: T, B, and Natural Killer (NK) (06/25/2024 12:28 PM CDT) CD45 Total Lymph Count 0.76(L) 0.82 - 2.84 thou/mcL 06/26/2024 11:48 AM CDT [facility] % CD3 (T Cells) 91(H) 58 - 86 % 11:48 AM CDT [facility] CD3 (T Cells) 697 550 - 2202 cells/mcL 06/26/2024 11:48 AM CDT [facility] % CD4 (T Cells) 41 32 - 64 % 11:48 AM CDT [facility] CD4 (T Cells) 311(L) 365 - 1437 cells/mcL 06/26/2024 11:48 AM CDT [facility] % CD8 (T Cells) 49(H) 8 - 40 % 11:48 AM CDT [facility] CD8 T Cells 370 80 - 846 cells/mcL 06/26/2024 11:48 AM CDT [facility] % CD19 (B Cells) 0(L) 3 - 24 % 06/26/20 11:48 AM CDT [facility] CD19 (B Cells) 0(L) 45 - 409 cells/mcL 06/26/2024 11:48 AM CDT [facility] % CD16+CD56 (NK cells) 8 5 - 28 % 06/26/2024 11:48 AM CDT [facility] CD16+CD56 (NK cells) 60 59 - 513 cells/[facility] 06/26/2024 11:48 AM CDT [facility] 4/8 Ratio 0.8(L) >=0.9 06/26/2024 11:48 AM CDT [facility] Comment: ----ADDITIONAL INFORMATION---- This test was developed using an analyte specific reagent. Its performance characteristics were determined by [facility] in a manner consistent with CLIA requirements. This test has not been cleared or approved by the U.S. Food and Drug Administration. Blood (Blood, Venous) 06/25/2024 12:28 PM CDT 06/25/2024 5:29 PM CDT us Brayan Swain M.D., M.S. LAB BLOOD ADD-ON Final R esult [facility] [address] [place] [address] [facility] [address] [place] [address] [place] [address] * Zinc (06/25/2024 12:28 PM CDT) [facility] Signature Zinc, S 76 60 - 106 mcg/dL 06/26/2024 9:20 AM CDT [facility] Comment: ----ADDITIONAL INFORMATION---- This test was developed and its performance characteristics determined by [facility] in a manner consistent with CLIA requirements. This test has not been cleared or approved by the U.S. Food and Drug Administration. Blood (Blood, Venous) 06/25/2024 12:28 PM CDT 06/25/2024 9:35 PM CDT Brayan Swain M.D., M.S. LAB BLOOD NON ADD-ON Fin al Result [facility] [address] [place] [address] [facility] [address] [place] [address] [place] [address] * (ABNORMAL) CBC with Differential, Blood (06/25/2024 12:28 PM CDT) Hemoglobin 11.9 11.6 - 15.0 g/dL 06/25/2024 2:59 PM CDT DTL Hematocrit 37.7 35.5 - 44.9 % 06/25/2024 2:59 PM CDT DTL Erythrocytes 4.25 3.92 - 5.13 x10(12)/L 06/25/2024 2:59 PM CDT DTL MCV 88.7 78.2 - 97.9 fL 06/25/2024 2:59 PM CDT DTL RBC Distrib Width 14.9 12.2 - 16.1 % 06/25/2024 2:59 PM CDT DTL Platelet Count 224 157 - 371 x10(9)/L 06/25/2024 2:59 PM CDT DTL Leukocytes 3.5 3.4 - 9.6 x10(9)/L 06/25/2024 2:59 PM CDT DTL Neutrophils 2.21 1.56 - 6.45 x10(9)/L 06/25/2024 2:59 PM CDT DHPM Lymphocytes 0.86(L) 0.95 - 3.07 x10(9)/L 06/25/2024 2:59 PM CDT DTL Monocytes 0.44 0.26 - 0.81 x10(9)/L 06/25/2024 2:59 PM CDT DTL Eosinophils <0.03 0.03 - 0.48 x10(9)/L 06/25/2024 2:59 PM CDT DTL Basophils <0.03 0.01 - 0.08 x10(9)/L 06/25/2024 2:59 PM CDT DTL Blood (Blood, Venous) 06/25/2024 12:28 PM CDT 06/25/2024 2:34 PM CDT us Brayan Swain M.D., M.S. LAB BLOOD ADD-ON Final R esult Performing Organization Address City/[facility] [place] [address], [place] [address] * (ABNORMAL) Hemoglobin A1c (06/25/2024 12:28 PM CDT) Hemoglobin A1c, B 5.7(H) 4.0 - 5.6 % 06/25/2024 3:08 PM CDT DTL Comment: Hemoglobin A1c values of 5.7-6.4 percent indicate an increased risk for developing diabetes mellitus. In diabetic patients, HbA1c goals should be discussed with healthcare provider. Blood (Blood, Venous) 06/25/2024 12:28 PM CDT 06/25/2024 2:34 PM CDT us Brayan Swain M.D., M.S. LAB BLOOD ADD-ON Final R esult [facility] [address] [place], [place] [id number] [place] [address] [place] [address] * Thyroid Function [place] (06/25/2024 12:27 PM CDT) TSH, Sensitive 2.0 0.3 - 4.2 mIU/L 06/25/2024 3:25 PM CDT DT Blood (Blood, Venous) 06/25/2024 12:27 PM CDT 06/25/2024 2:31 PM CDT us Brayan Swain M.D., M.S. LAB BLOOD ADD-ON Final R esult Performing Organization Address City/[facility]/ZIP Co de Phone Number [facility] [address] [place] [address], [facility] [address] [place] [address] * SS-B/La Antibodies, IgG (06/25/2024 12:27 PM CDT) SS-B/La Ab, IgG, S <0.2 <1.0 (Negative) U 06/25/2024 5:45 PM CDT [facility] Blood (Blood, Venous) 06/25/2024 12:27 PM CDT 06/25/2024 4:52 PM CDT us Brayan Swain M.D., M.S. LAB BLOOD ADD-ON Final R esult [facility] [address] [place] [address] [facility] [address] [place] [address] * SS-A/Ro Antibodies, IgG (06/25/2024 12:27 PM CDT) SS-A/Ro Ab, IgG, S <0.2 <1.0 (Negative) U 06/25/2024 5:45 PM CDT [facility] Blood (Blood, Venous) 06/25/2024 12:27 PM CDT 06/25/2024 4:52 PM CDT us Brayan Swain M.D., M.S. LAB BLOOD ADD-ON Final R esult Performing Organization Address City/[facility]/ZIP Co de Phone Number [facility] [address] [place] [address] [facility] [address] [place] [address] * Thiamine (Vitamin B1), Whole Blood (06/25/2024 12:27 PM CDT) Thiamine (Vitamin B1), WB 139 70 - 180 nmol/L 06/28/2024 9:45 AM [facility] Comment: ----ADDITIONAL INFORMATION---- This test was developed and its performance characteristics determined by [facility] in a manner consistent with CLIA requirements. This test has not been cleared or approved by the U.S. Food and Drug Administration. Blood (Blood, Venous) 06/25/2024 12:27 PM CDT 06/26/2024 8:26 AM CDT Brayan Swain M.D., M.S. LAB BLOOD NON ADD-ON Fin al Result Performing Organization Address City/[facility]/ZIP Co de Phone Number [facility] [address] [place] [address] [facility] [address] [place] [address] [place] [address] * 25-Hydroxyvitamin D2 and D3 (06/25/2024 12:27 PM CDT) 25-Hydroxy D2 <4.0 ng/mL 07/01/2024 11:03 AM [facility] 25-Hydroxy D3 75 ng/mL 07/01/2024 11:03 AM [facility] 25-Hydroxy D Total 75 ng/mL 2023 11:03 AM [facility] Comment: Interpretation: 51-80 ng/mL (increased risk of hypercalciuria) ----REFERENCE VALUE---- 25-HYDROXY D TOTAL (D2+D3) Optimum levels in the healthy population are 20-50. ----ADDITIONAL INFORMATION---- This test was developed and its performance characteristics determined by [facility] in a manner consistent with CLIA requirements. This test has not been cleared or approved by the U.S. Food and Drug Administration. Blood (Blood, Venous) 06/25/2024 12:27 PM CDT 06/26/2024 7:36 AM CDT us Brayan Swain M.D., M.S. LAB BLOOD ADD-ON Final R esult Performing Organization Address City/[facility]/ZIP Co de Phone Number [facility] [address] [place] [address] [facility] [address] [place] [address] [place] [address] * CRP (C-Reactive Protein) (06/25/2024 12:27 PM CDT) C-Reactive Protein (CRP), S 3.8 <5.0 mg/L 06/25/2024 3:25 PM CDT DT Blood (Blood, Venous) 06/25/2024 12:27 PM CDT 06/25/2024 2:31 PM CDT us Brayan Swain M.D., M.S. LAB BLOOD ADD-ON Final R esult Performing Organization Address [facility] de Phone Number [facility] [address] [place] [address], [facility] [address] [place] [address] * DIONNE (Antinuclear Antibodies) (06/25/2024 12:27 PM CDT) Antinuclear Ab, S 0.3 <=1.0 (Negative) U 06/26/2024 12:01 PM CDT [facility] Comment: ----ADDITIONAL INFORMATION---- Method: Enzyme-linked immunoassay using HEp-2 nuclear extract supplemented with purified antigens. Blood (Blood, Venous) 06/25/2024 12:27 PM CDT 06/25/2024 4:54 PM CDT us Brayan Swain M.D., M.S. LAB BLOOD ADD-ON Final R esult Performing Organization Address City/[facility]/ZIP Co de Phone Number [facility] [address] [place] [address] [facility] [address] [place] [address] * Magnesium (06/25/2024 12:27 PM CDT) Pathologist [facility] Magnesium, S 2.1 1.7 - 2.3 mg/dL 06/25/2024 3:25 PM CDT [facility] Blood (Blood, Venous) 06/25/2024 12:27 PM CDT 06/25/2024 2:31 PM CDT Brayan Swain M.D., M.S. LAB BLOOD ADD-ON Final R esult Performing Organization Address [facility]/ZIP Co de Phone Number [facility] [address] [place] [address], [facility] [address] [place] [address] * (ABNORMAL) Immunoglobulin G (IgG) (06/25/2024 12:27 PM CDT) [facility] Immunoglobulin G (IgG), S 753(L) 767 - 1590 mg/dL 06/25/2024 6:36 PM CDT [facility] Blood (Blood, Venous) 06/25/2024 12:27 PM CDT 06/25/2024 4:55 PM CDT Mehreen Landis M.D. LAB BLOOD ADD-ON Final Resul t [facility] [address] [place] [address] [facility] [address] [place] [address] * Folate (06/25/2024 12:27 PM CDT) Pathologist [facility] Folate, S >20.0 >=4.0 mcg/L 06/26/2024 8: 25 AM CDT [facility] Blood (Blood, Venous) 06/25/2024 12:27 PM CDT 06/25/2024 2:31 PM CDT us Brayan Swain M.D., M.S. LAB BLOOD ADD-ON Final R esult Performing Organization Address [facility] Co de Phone Number [facility] [address] [place] [address], [facility] [address] [place] [address] * Ferritin (06/25/2024 12:27 PM CDT) Pathologist [facility] Ferritin, S 15 11 - 328 mcg/L 06/25/2024 3:25 PM CDT [facility] Blood (Blood, Venous) 06/25/2024 12:27 PM CDT 06/25/2024 2:31 PM CDT us Brayan Swain M.D., M.S. LAB BLOOD ADD-ON Final R esult Performing Organization Address [facility] Co de Phone Number [facility] [address] [place] [address], [place] [address] * Vitamin B12 Assay (06/25/2024 12:27 PM CDT) [facility] Vitamin B12 Assay, S 535 180 - 914 ng/L 06/26/2024 8:49 AM CDT [facility] Comment: ----ADDITIONAL INFORMATION---- In patients being evaluated for vitamin B12 deficiency who have intrinsic factor blocking antibodies (IFBA), false elevations of B12 may occur due to IFBA interference thus potentially obscuring a physiological deficiency of B12. If observed B12 concentrations are discordant with clinical presentation, measurement of methylmalonic acid (MMA) should be considered. Blood (Blood, Venous) 06/25/2024 12:27 PM CDT 06/25/2024 2:31 PM CDT us Brayan Swain M.D., M.S. LAB BLOOD ADD-ON Final R esult [facility] [address] [place] [address], [place] DTL [facility] [address] [place] [address] * Comprehensive Metabolic Panel (06/25/2024 12:27 PM CDT) Pathologist [facility] Potassium, S 3.8 3.6 - 5.2 mmol/L 06/25/2024 3:25 PM CDT [facility] Sodium, S 137 135 - 145 mmol/L 06/25/2024 3:25 PM CDT [facility] Chloride, S 99 98 - 107 mmol/L 06/25/2024 3:25 PM CDT [facility] Bicarbonate, S 29 22 - 29 mmol/L 06/25/2024 3:25 PM CDT [facility] Anion Gap 9 7 - 15 06/25/2024 3:25 PM CDT [facility] BUN (Blood Urea Nitrogen), S 9 6 - 21 mg/dL 06/25/2024 3:25 PM CDT [facility] Creatinine 0.76 0.59 - 1.04 mg/dL 06/25/2024 3:25 PM CDT [facility] Estimated GFR (eGFR) 84 >=60 mL/min/BS A 06/25/2024 3:25 PM CDT [facility] Comment: Estimated GFR calculated using the 2020 CKD_EPI creatinine equation. Calcium, Total, S 9.2 8.8 - 10.2 mg/dL 06/25/2024 3:25 PM CDT [facility] Glucose, S 84 70 - 140 mg/dL 06/25/2024 3:25 PM CDT [facility] Protein, Total, S 6.3 6.3 - 7.9 g/dL 06/25/2024 3:25 PM CDT [facility] Albumin, S 4.2 3.5 - 5.0 g/dL 06/25/2024 3:25 PM CDT [facility] Aspartate Aminotransferase (AST), S 29 8 - 43 U/L 06/25/2024 3:25 PM CDT [facility] Alkaline Phosphatase, S 82 35 - 104 U/L 06/25/2024 3:25 PM CDT D[facility] Alanine Aminotransferase (ALT), S 23 7 - 45 U/L 06/25/2024 3:25 PM CDT [facility] Bilirubin, Total, S <0.2 0.0 - 1.2 mg/dL 06/25/2024 3:25 PM CDT [facility] Blood (Blood, Venous) 06/25/2024 12:27 PM CDT 06/25/2024 2:31 PM CDT Brayan Swain M.D., M.S. LAB BLOOD ADD-ON Final R esult Performing Organization Address City/[facility]/ZIP Co de Phone Number [facility] [address] [place] [address], [place] [facility] [address] [place] [address] * Riboflavin (Vitamin B2) (06/25/2024 12:26 PM CDT) Riboflavin (Vitamin B2), P 8 1 - 19 mcg/L 06/26/2024 10:39 PM CDT [facility] Comment: ----ADDITIONAL INFORMATION---- This test was developed and its performance characteristics determined by [facility] in a manner consistent with CLIA requirements. This test has not been cleared or approved by the U.S. Food and Drug Administration. Blood (Blood, Venous) 06/25/2024 12:26 PM CDT 06/26/2024 7:17 AM CDT Brayan Swain M.D., M.S. LAB BLOOD NON ADD-ON Fin al Result [facility] [address] [place] [address] [facility] [address] [place] [address] [place] [address] * Vitamin B6 Profile (PLP and PA) (06/25/2024 12:26 PM CDT) Pyridoxal 5-Phosphate (PLP), P 16 5 - 50 mcg/L 07/01/2024 10:04 AM FENCE ERECTOR SUPERVISOR [facility] Comment: ----ADDITIONAL INFORMATION---- This test was developed and its performance characteristics determined by [facility] in a manner consistent with CLIA requirements. This test has not been cleared or approved by the U.S. Food and Drug Administration. Pyridoxic Acid (PA), P 7 3 - 30 mcg/L 07/01/2024 10:04 AM FENCE ERECTOR SUPERVISOR [facility] Comment: ----ADDITIONAL INFORMATION---- This test was developed and its performance characteristics determined by [facility] in a manner consistent with CLIA requirements. This test has not been cleared or approved by the U.S. Food and Drug Administration. Blood (Blood, Venous) 06/25/2024 12:26 PM CDT 06/26/2024 3:51 PM CDT Brayan Swain M.D., M.S. LAB BLOOD NON ADD-ON Fin al Result Performing Organization Address City/[facility]/ZIP Co de Phone Number [facility] [address] [place] [address] [facility] [address] [place] [address] [place] [address] * Estradiol (06/23/2024 3:30 PM CDT) Pathologist [facility] Estradiol, Mass Spectrometry, S 17 pg/mL 06/26/2024 11:28 AM CDT [facility] Comment: ----REFERENCE VALUE---- Premenopausal: 15-350 (E2 levels vary widely through the menstrual cycle.) Postmenopausal: <10 ----ADDITIONAL INFORMATION---- This test was developed and its performance characteristics determined by [facility] in a manner consistent with CLIA requirements. This test has not been cleared or approved by the U.S. Food and Drug Administration. Blood (Blood, Venous) 06/23/2024 3:30 PM CDT 06/24/2024 7:40 AM CDT Ada Day APRN, C.N.P., D.N.P. LAB BLOOD NON ADD-ON Final Result Performing Organization Address City/[facility]/ZIP Co de Phone Number [facility] [address] [place] [address] [facility] [address] [place] [address] [place] [address] * CT Chest with IV Contrast (06/05/2024 2:02 PM CDT) Anatomical Region Laterality Modality Chest, Thoracic RST LOS, Tho racic ARZ LOS, Thoracic ARZ LOS, Thoracic FLA LOS N/A Computed Tomography, Compute d Tomography 06/05/2024 1:48 PM CDT Impressions 06/05/2024 2:40 PM CDT Improvement/resolution of bilateral consolidation and groundglass opacities which should have been due to infection/inflammation. No recurrent or metastatic disease evident in the chest. Narrative 06/05/2024 2:40 PM CDT EXAM: CT CHEST WITH IV CONTRAST COMPARISON: Exams dating back to 09/17/2023 FINDINGS: Since 11/11/2023 there has been near complete resolution of the bilateral basilar predominant consolidative and groundglass opacities. There is residual reticulation/scarring in both lungs with some associated architectural distortion and traction bronchiectasis. The findings should be due to sequela from previous infection/inflammation. Small nodular opacities in the lungs are otherwise stable including a 9 x 6 mm nodule in the anterior right midlung (series 3 image 376) which may be a focal region of scarring/atelectasis or intrapulmonary lymph node. No new or enlarging nodules in either lung. Sternotomy with postoperative changes in the mediastinum without findings to suggest recurrence in the operative bed. No new mediastinal masses or adenopathy. Old bilateral rib fractures. Mild degenerative and hypertrophic changes in the spine. No definite worrisome osseous lesions Benign-appearing calcification in the right breast. Cholelithiasis. Left renal cysts. The visualized abdomen is otherwise unremarkable. 3D maximum intensity projection (MIP) images were created on a dependent workstation as ordered by the treating provider and reviewed by the radiologist to increase sensitivity for detection of pulmonary nodules. Procedure Note Too Tripathi M.D. - 06/05/2024 EXAM: CT CHEST WITH IV CONTRAST COMPARISON: Exams dating back to 09/17/2023 FINDINGS: Since 11/11/2023 there has been near complete resolution of the bilateralbasilar predominant consolidative and groundglass opacities. There isresidual reticulation/scarring in both lungs with some associatedarchitectural distortion and traction bronchiectasis. The findings should be due to sequela from previousinfection/inflammation. Small nodular opacities in the lungs are otherwise stable including a 9 x6 mm nodule in the anterior right midlung (series 3 image 376) which maybe a focal region of scarring/atelectasis or intrapulmonary lymph node. Nonew or enlarging nodules in either lung. Sternotomy with postoperative changes in the mediastinum without findingsto suggest recurrence in the operative bed. No new mediastinal masses oradenopathy. Old bilateral rib fractures. Mild degenerative and hypertrophic changes inthe spine. No definite worrisome osseous lesions Benign-appearing calcification in the right breast. Cholelithiasis. Leftrenal cysts. The visualized abdomen is otherwise unremarkable. 3D maximum intensity projection (MIP) images were created on a dependentworkstation as ordered by the treating provider and reviewed by theradiologist to increase sensitivity for detection of pulmonary nodules. IMPRESSION: Improvement/resolution of bilateral consolidation and groundglassopacities which should have been due to infection/inflammation. Norecurrent or metastatic disease evident in the chest. Radha Keen APRN C.N.P., M.S.N. IMG CT [place] OCEDURES Final Result from Last [address] [place] [address] [facility] Advance Directives For more information, please contact: [phone] Documents on File Type Date Recorded Patient Soccer Commentator Expl anation Advance Directives 08/22/2022 9:15 AM Rea Gunder sonEric NordstromRolf Albaro Jacqueline HCPOA/ADVOCATE/AGENT/R EPRESENTATIVE/SURROGAT E * Full Code [...] Relationship Communication Rea Duran Health Care Agent [phone] (Home) [email or web address] Jacqueline Leavitt Health Care Agent [email or web address] Alex Albaro Leavitt First Altern ate Health Care Agent Care Teams Office Clin Asst Relationship Specialty Start Date End Date Elsewhere, Pcp PCP - General 11/07/23
--- OUTSIDE RECORDS SUMMARY | 2024-07-07 14:47 | XMS_ITS | Encounter Summary ---
Author Organization [facility] Address [address] [place] [address] Care Team Providers Care Senior Software Manager Name Role Phone Elsewhere, Pcp Primary Care Provider Unavailabl e Encounter Details Date Type Department Care Team (Late st Contact Info) Description 07/06/2024 Orders Only Division of Pediatric Allergy & Immunology in [place], [place] [address] [place] [phone] Brayan Swain M.D., M.S. [address] [place] [address] Social History Tobacco Use Types Packs/Day Years Used Date Smoking Tobacco: Never Passive Smoke Exposure: Never Smokeless Tobacco: Never Comments:I have never used t obacco. Alcohol Use Standard Drinks/Week Comments Never 0 (1 standard drink = 0.6 oz pur e alcohol) [facility] Utilities Answer Date Recorded In the [...] declined 06/04/2022 How often do you attend [facility] or nondenominational services? Never 06/04/2022 Do you belong to [...] care, and heating? Not very hard 06/04/2022 [facility] of Occupat ional Health - Occupational Stress [...] your living situation today? [facility] 11/08/2023 Education Answer Date Recorded What is the highest level of school you have completed or the highest degree you have received? Master's degree (e.g., MA, MS, Milly, MEd, PARKING GARAGE MANAGER, MADELYN) 06/04/2022 Comments No Sex and Gender Information Value Date Recorded Sex Assigned at Female 06/04/2022 4:58 PM CDT Legal Sex Female 2:16 PM CDT Gender Identity Female 06/04/2022 4:58 PM CDT Sexual Orientation Straight 06/04/2022 4: 58 PM CDT documented as of this encounter Plan of Treatment Upcoming Encounters Date Type Department Care Team (Late st Contact Info) Description 07/21/2024 1:15 PM POWER NUT RUNNER OPERATOR Infusion Department of Infusion Therapy in [address] [place] [address] Mehreen aLndis M.D. 08/04/2024 4:00 PM POWER NUT RUNNER OPERATOR Comprehensive Visit Division of Pulmonary Medicine in [place], [place] [address] [place] [address] Simon Mcnulty M.D., M.P.H. [address] [place] [phone] 08/14/2024 1:15 PM POWER NUT RUNNER OPERATOR Infusion Department of Infusion Therapy in [place], [place] [address] [facility] [place] [address] Mehreen Landis M.D. 09/07/2024 1:20 PM POWER NUT RUNNER OPERATOR Comprehensive Visit Department of Dermatology in [place], [place] [address] [place] [phone] Sanjana Sahu M.D. [address] [place] [phone] documented as of this encounter Visit Diagnoses Not on filedocumented in this encounter Care Teams Senior Software Manager Relationship Specialty Start Date End Date Elsewhere, Pcp PCP - General 11/07/23 documented as of this encounter
--- OUTSIDE RECORDS SUMMARY | 2024-07-07 14:47 | XMS_ITS | Encounter Summary ---
Author Organization [facility] Address [address] [place] [address] Care Team Providers Care Network Security Engineer Name Role Phone Elsewhere, Pcp Primary Care Provider Unavailabl e Reason for Visit * Reason Onset Date Comments Pre-visit Intake 06/22/2024 Encounter Details Date Type Department Care Team (Latest Contact Info) Description 06/22/2024 12:30 PM CDT Clinical Communication Virtual Review in [place], [place] 200 [place] [address] Pre-visit Intake Social History Tobacco Use Types Packs/Day Years Used Date Smoking Tobacco: Never Passive Smoke Exposure: Never Smokeless Tobacco: Never Tobacco Cessation:Counseling Given: Not Answered Comments:I have never used tobacco. Alcohol Use Standard Drinks/Week Comments Never 0 (1 standard drink = 0.6 oz pur e alcohol) [facility] Utilities Answer Date Recorded In the [...] How often do you attend chur or congregational services? Never 06/04/2022 Do you belong to [...] care, and heating? Not very hard 06/04/2022 [facility] [place] of Occupat ional Health - Occupational Stress [...] your living situation today? I have a [facility] place to live 11/08/2023 Education Answer Date Recorded What is the highest level of school you have completed or the highest degree you have received? Master's degree (e.g., MA, MS, Milly, MEd, SALES CENTER MANAGER, MADELYN) 06/04/2022 Comments No Sex and [...] st Contact Info) Description 07/21/2024 1:15 PM METAL CUTTER Infusion Department of Infusion Therapy in [address] [place] [address] Mehreen Landis M.D. 08/04/2024 4:00 PM METAL CUTTER Comprehensive Visit Division of Pulmonary Medicine in [place], [place] [address] [place] [address] Simon Mcnulty M.D., M.P.H. [address] [place] [address] 08/14/2024 1:15 PM METAL CUTTER Infusion Department of Infusion Therapy in [place], [place] [address] [facility] [place] [address] Mehreen Landis M.D. 09/07/2024 1:20 PM METAL CUTTER Comprehensive Visit Department of Dermatology in [place], [place] [address] [place] [address] Sanjana Sahu M.D. [address] [place] [address] documented as of this encounter Visit Diagnoses Not on filedocumented in this encounter Care Teams Network Security Engineer Relationship Specialty Start Date End Date Elsewhere, Pcp PCP - General 11/07/23 documented as of this encounter
--- OUTSIDE RECORDS SUMMARY | 2024-07-07 14:47 | XMS_ITS | Encounter Summary ---
Author Organization [facility] Address [address] [place] [address] Care Team Providers Care Appraisal Analyst Name Role Phone Elsewhere, Pcp Primary Care Provider Unavailabl e Reason for Referral * Specialty Diagnoses / Procedures Referred By Contac t Referred To Contact Diagnoses Menopause Surgical Ada Day APRN, C.N.PYesika, D.N.P. [address] [place] [phone] Phone: tel: fax: [facility] Referral ID Status Reason Start Date Expiration Date Visits Re quested Visits Authorized Reason for Visit * Outpatient (Routine) - Closed Specialty Diagnoses / Procedures Referred By Contac t Referred To Contact Women's Health Diagnoses Immunodeficiency (HCC) Need Therapy Hormone Replacement Brayan Swain M.D., M.S. [address] [place] [phone] Phone: tel: fax: [facility] Referral ID Status Reason Start Date Expiration Date Visits Re quested Visits Authorized [id number] Closed 02/24/2024 08/25/2025 1 1 Encounter Details Date Type Department Care Team (Latest Contact Info) Description 06/23/2024 1:30 PM CDT Comprehensive Visit [facility] and [facility] in [place], [place] [address] [place] [phone] Ada Day APRN, C.N.P., D.N.P. [address] [place] [phone] Menopause Surgical (Primary Dx); Symptoms Vasomotor; Immunodeficiency (HCC); Hormone Therapy Status Social History Tobacco Use Types Packs/Day Years Used Date Smoking Tobacco: Never Passive Smoke Exposure: Never Smokeless Tobacco: Never Comments:I have never used t obacco. Alcohol Use Standard Drinks/Week Comments Never 0 (1 standard drink = 0.6 oz pur e alcohol) [facility] Utilities Answer Date Recorded In the past 12 months has e [employer], gas, oil, or water [employer] threatened to shut off services in your [...] often do you attend chur ch or mormon services? Never 06/04/2022 Do you belong to any clubs o r organizations such as mandaeism groups, unions, fraternal or athletic groups, or [...] and heating? Not very hard 06/04/2022 [facility] - Occupational [...] Master's degree (e.g., MA, MS, Milly, MEd, BLOCK CUTTER, MADELYN) 06/04/2022 Comments No Sex and Gender Information Value Date Recorded Sex Assigned at Female 06/04/2022 4:58 PM CDT Legal Sex Female 2:16 PM CDT Gender Identity Female 06/04/2022 4:58 PM CDT Sexual Orientation Straight 06/04/2022 4: 58 PM CDT documented as of this encounter Patient Instructions * Patient Instructions* Ada Day, CICI, C.N.P., D.N.P. - 06/23/2024 1:30 PM CDT Will check estradiol level to see if you have been absorbing the medication from the pill given ongoing hot flashes Recommend tapering off of estrogen therapy slowly. Start with 1 tablet for 2-4 weeks, then half a tablet for 2-4 weeks, then stop If remaining on hormone therapy, would recommend being on transdermal route (topical) to lower riskof clot. Such as an estradiol gel with goal to use lowest effective dose Non-hormonal options for managing hot flashes to consider: Acupuncture, hypnotherapy, or consuming more phytoestrogens (soy such as tofu, edamame, and soy milk) Paxil 10 mg daily or Effexor 37.5 mg daily (also helpful for mood) Oxybutynin 2.5 - 5 mg twice daily (also helpful for overactive bladder syndrome - urinary urgency/frequency) Gabapentin 100-300 mg at bedtime, can increase to 2-3 times per day for control of daytime symptomsbased on tolerance (also can be helpful for joint aches/pains, disturbed sleep, and headaches) Veozah 45 mg daily (requires blood work to look at liver enzymes before starting and then every 3 months for the first year) Stellate ganglion block (typically a last resort as is a more invasive procedure requiring multiplelocal anesthetic injections in neck). Can also consider magnesium glycinate 400-800 mg before bed to help support sleep and potentially reduce night sweats. Look for labels such as SNF, NSF, and LawBite which indicate that third libertarian testing has beendone Monitor for feelings of vaginal dryness or discomfort, or frequent UTI's, as this could indicate need for vaginal estrogen Can use a vaginal moisturizer to help support vulvovaginal tissues documented in this encounter Consult Notes * Ada Day APRN, C.N.P., Stuart.N.P. - 06/23/2024 1:30 PM CDT SUBJECTIVE Referring Provider: Brayan Swain M.D., M.S. Chief Complain/Reason for Visit Ms. Phillips is a 73 y.o. female presenting to discuss hormone therapy management. HPI: Alexia is postmenopausal and last menstrual period was around age 52. 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 She is presentlyon oral estrace 0.75 mg daily. Ms. Phillips reports beginning hormone therapy after her hysterectomy and bilateral oophorectomy around age 53. She has tried tapering off of this on a few occasions and experienced joint aches/pains, depressed mood, and hot flashes. She most recently trialed hormone therapy discontinuation in and was off of this for few months before resuming due to recurrence of symptoms. Interestingly, she presently is on oral Estrace 0.75 mg daily and has 10 to 12 hot flashes per day. She describes these as lasting a couple minutes and being associated with feeling somewhat more emotional and weak. She notes that her primary care provider previously had her taking 1 mg of oral estrogen every other day for a few years and this did not feel very helpful to her. She is unsure of how long she has been having 10 to 12 hot flashes per day. She is interested in tapering off of hormone therapy atthis time. She shares that she did try an estradiol patch at one point but felt that the levels of this were too high initially and did not tolerate it so she resumed to using the pill. She does not presently have concerns related to vaginal dryness. Denies frequent UTIs. Her in 2003 from cancer when their adopted son was 6 years old. She has since moved back home to [place] where she is from. She states that her last mammogram was performed in June of 2023 at her local healthcare facility; I am unable to see these results. She did have a breast biopsy on 07/31/2023 which was benign. She denies personal history of precancerous or cancerous breast lesions. She denies family history ofbreast cancer. She does have family history of ovarian cancer in her mother-she did survive this. She does not have a history of coronary artery disease or event. She does not have a history of VTE. Does not use tobacco products. Review of systems negative except as noted in the HPI. I reviewed the [facility] intake and questionnaire. Medications, allergies, past medical history, social history, and family history have been reviewedand updated. OBJECTIVE General: Well-developed, well-nourished; in no acute distress. Constitutional: She appears well. No distress. Pulmonary/Chest: No respiratory distress. Breathing comfortably. Psychiatric: She has a normal mood and affect. Neuro: Alert, answering questions appropriately, ambulating without difficulty. Estimated body mass index is 23.86 kg/m?? as calculated from the following: Height as of 06/15/24: 169.5 cm. Weight as of 06/15/24: 68.6 kg. ASSESSMENT / PLAN We reviewed the natural course of menopause, typical hormonal and bodily changes, symptoms, and strategies to manage these symptoms including lifestyle modification, acupuncture, and hypnosis. We also reviewed prescription options for management of vasomotor symptoms including hormone therapy,the use of SSRI/SNRI antidepressant medications,gabapentin, oxybutynin, & Veozah. We reviewed the risks, benefits and current recommendations for the use of hormone therapy, including the general principles of starting hormone therapy earlier rather than later in menopause and individualizing therapy based on goals of treatment, risks, benefits and patient preferences. We discussed the available hormone therapy regimens, routes of administration and dosing options as well as the need to review her ongoing need for hormone therapy (if indicated) on an annual basis, in the context of her current state of health and in light of any new information available regarding hormone therapy. She should continue with self-breast awareness and with appropriate breast imaging for cancer screening. We discussed that the use of menopausal hormone therapy is generally thought to be associated with a lower risk of VTE compared to C-OCP. In the Women's Health initiative study, hormone therapy increased VTE risk approximately 2-fold (Hazard ratio 2.06), but was higher in woman with a previous event (HR 3.09) and patients with the presence of factor 5 Leiden (HR 6.7). Furthermore, transdermal estradiol therapy is believed to have a lower thrombotic risk than oral replacement. This was illustrated in a meta analysis (Genna et at. BMJ. 2008;336(2453):7420. Epub 2007January 12) demonstrating no excess risk of a first VTE in patients taking transdermal estrogen (OR 1.2, 95% CI 0.1-1.7), even in those with prothrombotic mutations or high body mass index (BMI). Studies with patient's with a prior VTE history were excluded. We discussed concerns regarding hormone therapy for longer than 10-15 years in terms of stimulationof the breast tissue and effect on the cardiovascular tissues. Both breast cancer and cardiovascular disease become more likely with age and we discussed risks related to breast cancer and cardiovascular disease such as strokes. That being said, it is reasonable to have a risk benefit discussion with the patient, identify patient goals, strategize ways to achieve those goals in the safest way possible, and try to work as a team moving forward. Therefore, if the patient had significant concerns about potentially discontinuing hormone therapy, the next step would be to see if there are any waysthat we can increase the safety of the hormone therapy she is using while continuing to consider inthe future a trial off of hormone therapy altogether. I have identified and discussed with Ms. Phillips a number of ways that we could increase the safety of her hormone regimen: 1. It would be recommended that she switch from oral estradiol to a transdermal delivery form, because there is evidence to suggest that transdermal estrogen is associated with the lower likelihood blood clots. This would mean switching from the oral to a patch or gel 2. Lower estradiol dose with goal for her to be on the lowest effective dose. One option would be to discontinue the hormones altogether and see how she does in terms of the severity of her symptoms. 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 However, this is through the estrogen receptor alpha rather than beta. We reviewed the changes caused by genitourinary syndrome of menopause. We discussed that the tissues of the vaginal canal and introitus are very estrogen sensitive and can therefore become thin and irritated in the postmenopausal setting. Given the proximity of the urethra to the vagina, it too canbecome irritated leading to urinary urgency and frequency. This tissue response to decreased estrogen can also cause irritation and discomfort with intercourse, sometimes even in the setting of lubricant use. Moisturizers, which have been shown on histologic studies to alter the cellular environment and function of vaginal cells, can sometimes provide adequate treatment of vaginal dryness so as to eliminate painful intercourse. In other cases, vaginal estrogen may be used. We discussed the safety of vaginal estrogen, various forms of vaginal estrogen, and general principles of use. After a review of options, we have decided to proceed with the followin. Menopause Surgical (Primary) 2. Symptoms Vasomotor 3. Immunodeficiency (HCC) 4. Hormone Therapy Status She is postmenopausal and having persistent vasomotor symptoms despite use of oral estrogen. This does make me wonder if she has been adequately absorbing the medication from the pills so we will check a baseline estradiol level. If her estradiol level is normal to high, this may suggest that her feelings of warmth might not be menopausal in nature any longer. Conversely, if her estradiol level is low, that would explain her ongoing vasomotor symptoms, but would mean that she should not try alternative forms of systemic estradiol therapy at this time given suspected duration of not receiving estrogen and the concern this poses in relation to the timing hypothesis (elevated risk of stroke). She will trial tapering off of her estrogen therapy at this time by taking one 0.5 mg tablet for 2-4 weeks, then half of a 0.5 mg tablet for 2-4 weeks prior to completely discontinuing. She will monitor for any increase in vasomotor symptoms or development of other new symptoms after tapering off of hormone therapy. If she were to wish to resume hormone therapy based on presence of bothersome vasomotor symptoms (with consideration of her estradiol level as mentioned above), I would recommend being on a transdermal route to lower risk of clot. It sounds as if she would favor an estradiol gel. That being said, we did discuss it is probably in her best interest to taper off of hormone therapyregardless given her age and the duration she has used it. We thoroughly discussed alternative options for managing vasomotor symptoms including the following: Acupuncture, hypnotherapy, or consuming more phytoestrogens (soy such as tofu, edamame, and soy milk) Paxil 10 mg daily or Lexapro 5-10 mg daily (also helpful for mood) Oxybutynin 2.5 - 5 mg twice daily (also helpful for overactive bladder syndrome - urinary urgency/frequency) Gabapentin 100-300 mg at bedtime, can increase to 2-3 times per day for control of daytime symptomsbased on tolerance (also can be helpful for joint aches/pains, disturbed sleep, and headaches) Veozah 45 mg daily (requires blood work to look at liver enzymes before starting and then every 3 months for the first year) Stellate ganglion block (typically a last resort as is a more invasive procedure requiring multiplelocal anesthetic injections in neck). She was also made aware that some see improvement in sleep and night sweats with use of magnesium glycinate supplementation before bed. Lastly, we thoroughly discussed signs/symptoms to monitor for that could indicate development of genitourinary syndrome of menopause after tapering off of estrogentherapy. She was preemptively provided resources regarding vaginal health promotion practices, vaginal moisturizers, and vaginal estrogen if needed in the future. She may follow-up as needed moving forward. She expressed understanding and is comfortable with theplan. I gave her my card and answered all her questions, and she appreciated the consultation. PATIENT EDUCATION Ready to learn, no apparent learning barriers were identified; learning preferences include listening. Explained diagnosis and treatment plan; patient expressed understanding of the content. documented in this encounter Plan of Treatment Upcoming Encounters Date Type Department Care Team (Late st Contact Info) Description 07/21/2024 1:15 PM TEASEL GIG OPERATOR Infusion Department of Infusion Therapy in [place], [place] [address] [facility] [place] [place] [address] Mehreen Landis M.D. 08/04/2024 4:00 PM TEASEL GIG OPERATOR Comprehensive Visit Division of Pulmonary Medicine in [place], [place] [address] [place] [phone] Simon Mcnulty M.D., M.P.H. [address] [place] [phone] 08/14/2024 1:15 PM TEASEL GIG OPERATOR Infusion Department of Infusion Therapy in [place], [place] [address] [place] [address] [place] [address] Mehreen Landis M.D. 09/07/2024 1:20 PM TEASEL GIG OPERATOR Comprehensive Visit Department of Dermatology in [place], [place] [address] [place] [phone] Sanjana Sahu M.D. [address] [place] [phone] Scheduled Referrals Name Type Priority Associated Diagnoses Orde r Schedule Women's Health - Nurse education visit (clinic) Outpatient Referral Routine Menopause Surgical Expected: 06/23/2024, Expires: 09/23/2025 documented as of this encounter Results * Estradiol (06/23/2024 3:30 PM CDT) Estradiol, Mass Spectrometry, S 17 pg/mL 06/26/2024 11:28 AM CDT [facility] Comment: ----REFERENCE VALUE---- Premenopausal: 15-350 (E2 levels vary widely through the menstrual cycle.) Postmenopausal: <10 ----ADDITIONAL INFORMATION---- This test was developed and its performance characteristics determined by [facility] in a manner consistent with CLIA requirements. This test has not been cleared or approved by the U.S. Food and Drug Administration. Blood (Blood, Venous) 06/23/2024 3:30 PM CDT 06/24/2024 7:40 AM CDT us Ada Day APRN C.N.P., D.N.P. LAB BLOOD NON ADD-ON Final Result [facility] [address] [place] [phone] [facility] [address] [place] [address] [place] [phone] documented in this encounter Visit Diagnoses Diagnosis Menopause Surgical- Primary Symptoms Vasomotor Immunodeficiency (HCC) Hormone Therapy Status documented in this encounter Care Teams Appraisal Analyst Relationship Specialty Start Date End Date Elsewhere, Pcp PCP - General 11/07/23 documented as of this encounter
--- OUTSIDE RECORDS SUMMARY | 2024-07-07 14:47 | XMS_ITS | Encounter Summary ---
Author Organization [facility] Address [address] [place] [address] Care Team Providers Care Business Liaison Officer Name Role Phone Elsewhere, Pcp Primary Care Provider Unavailabl e Reason for Referral * Outpatient (Routine) - Authorized Specialty Diagnoses / Procedures Referred By Contac t Referred To Contact Dermatology Diagnoses Burning Mouth Syndrome Brayan Swain M.D., M.S. [address] [place] [phone] Phone: tel: fax: [facility] Referral ID Status Reason Start Date Expiration Date V isits Requested Visits Authorized [id number] Authorized 06/15/2024 12/15/2025 1 1 * Outpatient (Routine) - Authorized Specialty Diagnoses / Procedures Referred By Contac t Referred To Contact Pulmonary Medicine Diagnoses Bronchiectasis (HCC) Brayan Swain M.D., M.S. [address] [place] [phone] Phone: tel: fax: [facility] Referral ID Status Reason Start Date Expiration Date V isits Requested Visits Authorized [id number] Authorized 06/15/2024 12/15/2025 1 1 Reason for Visit * Outpatient (Routine) - Closed Specialty Diagnoses / Procedures Referred By Contac t Referred To Contact Allergy and Immunology Brayan Swain M.D., M.S. [address] [place] [address] Phone: tel: fax: [facility] Referral ID Status Reason Start Date Expiration Date Visits Re quested Visits Authorized [id number] Closed 03/03/2024 09/02/2025 1 1 Encounter Details Date Type Department Care Team (Latest Contact Info) Description 06/15/2024 1:30 PM CDT Office Visit Division of Allergic Diseases in [place], [place] [address] [place] [phone] Brayan Swain M.D., M.S. [address] [place] [phone] Immunodeficiency (HCC) (Primary Dx); Bronchiectasis (HCC); Burning Mouth Syndrome Social History Tobacco Use Types Packs/Day Years Used Date Smoking Tobacco: Never Smokeless Tobacco: Never Tobacco Cessation:Counseling Given: Not Answered Comments:I have never used tobacco. Alcohol Use Standard Drinks/Week Comments Never 0 (1 standard drink = 0.6 oz pur e alcohol) [facility] Utilities Answer Date Recorded In the past 12 months has e electric, gas, oil, or water [employer] threatened to shut off services in your [...] and heating? Not very hard 06/04/2022 [facility] [place] of Occupat ional Health - Occupational Stress [...] your living situation today? I have a [facility] place to live 11/08/2023 Education Answer Date Recorded What is the highest level of school you have completed or the highest degree you have received? Master's degree (e.g., MA, MS, Milly, MEd, HELPER/DRIVER, MADELYN) 06/04/2022 Comments No Sex and Gender Information Value Date Recorded Sex Assigned at Female 06/04/2022 4:58 PM CDT Legal Sex Female 2:16 PM CDT Gender Identity Female 06/04/2022 4:58 PM CDT Sexual Orientation Straight 06/04/2022 4: 58 PM CDT documented as of this encounter Last Filed Vital Signs Vital Sign Reading Time Taken Comments Blood Pressure - - Pulse - - Temperature 35.7 ??C (96.3 ??F) 06/15/2024 1:22 PM CD T Respiratory Rate - - Oxygen Saturation - - Inhaled Oxygen Concentration - - Weight 68.6 kg (151 lb 2 oz) 06/15/2024 1:22 PM CDT Height 169.5 cm (5' 6.73) 06/15/2024 1:22 PM CD T Body Mass Index 23.86 06/15/2024 1:22 PM CDT documented in this encounter Progress Notes * Brayan Swain M.D., M.S. 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 I had last seen Keke in February, please refer to my note dated February. Pat is overall doing well with her dose of IVIG. She is questioning about next steps in her management. 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 In addition,we discussed the need for the following 4 vaccinations: 1. COVID. 2. High-dose influenza. 3. RSV. 4. Shingrix. The patient also has symptoms of burning in her mouth and thinks it may be T- cell reactivation. 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 The patient is now on single strength Bactrim and I am hopeful that her ANC will improve. We will check it along with her other labs later this month. Her pulmonary function testing did show a mild decline in her DLCO. Her CT scan ordered by the thoracic surgeons showed persistent bronchiectasis. I am referring her to my colleagues in Pulmonary Medicine to better address her bronchiectasis issue. Screening labs, including liver and kidney function testing, have been ordered and Pemgarda has been ordered at least 2 weeks following her COVID vaccination. PATIENT EDUCATION: Learning needs assessment was performed. No learning barriers were identified. Explained diagnosis and treatment plan. Patient expressed understanding and was able to teach back. This was billed as E5. The following education has been completed in accordance with the FDA Emergency Use Authorization (EUA) requirements: Informed patient / caregiver that pemivibart is not a current FDA-approved drug authorized for emergency use under this EUA. Informed patient / caregiver of alternatives to receiving pemivibart, and The ?Fact Sheet for Patients, Parents and Caregivers??? was provided to patient / caregiver: https://www.fda.gov/media/655088/download?attachment documented in this encounter Plan of Treatment Upcoming Encounters Date Type Department Care Team (Late st Contact Info) Description 07/21/2024 1:15 PM CUSTOMER SERVICE ANALYST Infusion Department of Infusion Therapy in [address] [address] Mehreen Landis M.D. 08/04/2024 4:00 PM CUSTOMER SERVICE ANALYST Comprehensive Visit Division of Pulmonary Medicine in [place], [place] [address] [place] [phone] Simon Mcnulty M.D., M.P.H. [address] [place] [phone] 08/14/2024 1:15 PM CUSTOMER SERVICE ANALYST Infusion Department of Infusion Therapy in [address] [address] Mehreen Landis M.D. 09/07/2024 1:20 PM CUSTOMER SERVICE ANALYST Comprehensive Visit Department of Dermatology in [place], [place] [address] [place] [phone] Sanjana Sahu M.D. [address] [place] [phone] Scheduled Referrals Name Type Priority Associated Diagnoses Order Schedule Pulmonary Medicine - Mycobacterial and bronchiectasis clinic ([facility]) consult (clinic) Outpatient Referral Routine Bronchiectasis (HCC) Expected: 06/15/2024 (Approximate), Expires: 09/15/2025 Dermatology - Burning mouth syndrome consult (clinic) Outpatient Referral Routine Burning Mouth Syndrome Expected: 06/15/2024, Expires: 09/15/2025 documented as of this encounter Results * Zinc (06/25/2024 12:28 PM CDT) Zinc, S 76 60 - 106 mcg/dL 06/26/2024 9:20 AM CDT [facility] Comment: ----ADDITIONAL INFORMATION---- This test was developed and its performance characteristics determined by [facility] in a manner consistent with CLIA requirements. This test has not been cleared or approved by the U.S. Food and Drug Administration. Blood (Blood, Venous) 06/25/2024 12:28 PM CDT 06/25/2024 9:35 PM CDT us Brayan Swain M.D., M.S. LAB BLOOD NON ADD-ON Fin al Result Performing Organization Address [facility] Co de Phone Number [facility] [address] [place] [address] [facility] [address] [place] [address] [place] [address] * (ABNORMAL) Hemoglobin A1c (06/25/2024 12:28 PM CDT) Pathologist [facility] Hemoglobin A1c, B 5.7(H) 4.0 - 5.6 % 06/25/2024 3:08 PM CDT DT Comment: Hemoglobin A1c values of 5.7-6.4 percent indicate an increased risk for developing diabetes mellitus. In diabetic patients, HbA1c goals should be discussed with healthcare provider. Blood (Blood, Venous) 06/25/2024 12:28 PM CDT 06/25/2024 2:34 PM CDT us Brayan Swain M.D., M.S. LAB BLOOD ADD-ON Final R esult Performing Organization Address City/[facility]/ZIP Co de Phone Number [facility] [address] [place] [address], [place] DTL [facility] [address] [place] [address] * (ABNORMAL) CBC with Differential, Blood (06/25/2024 [...] 12:28 PM CDT 06/25/2024 2:34 PM CDT Brayan Swain M.D., M.S. LAB BLOOD ADD-ON Final R esult [facility] [address] [place] [address], [facility] DTL [facility] [address] [place] [address] DHPM [facility] [address] * (ABNORMAL) Quantitative Lymphocyte Subsets: T, B, and Natural Killer (NK) (06/25/2024 12:28 PM CDT) CD45 Total Lymph Count 0.76(L) 0.82 - 2.84 thou/mcL 06/26/2024 11:48 AM CDT [facility] % CD3 (T Cells) 91(H) 58 - 86 % 11:48 AM CDT [facility] CD3 (T Cells) 697 550 - 2202 cells/[facility] 06/26/2024 11:48 AM CDT [facility] % CD4 [...] Cells) 0(L) 3 - 24 % 06/26/20 24 11:48 AM CDT [facility] CD19 (B Cells) 0(L) 45 - 409 cells/mcL 06/26/2024 11:48 AM CDT [facility] % CD16+CD56 (NK cells) 8 5 - 28 % 06/26/2024 11:48 AM CDT [facility] CD16+CD56 (NK cells) 60 59 - 513 cells/mcL 06/26/2024 11:48 AM CDT [facility] 4/8 Ratio 0.8(L) >=0.9 06/26/2024 11:48 AM CDT [facility] Comment: ----ADDITIONAL INFORMATION---- This test was developed using an analyte specific reagent. Its performance characteristics were determined by [facility] in a manner consistent with CLIA requirements. This test has not been cleared or approved by the U.S. Food and Drug Administration. Blood (Blood, Venous) 06/25/2024 12:28 PM CDT 06/25/2024 5:29 PM CDT us Brayan Swain M.D., M.S. LAB BLOOD ADD-ON Final R esult [facility] [address] [place] [address] [facility] [address] [place] [address] [place] [address] * CRP (C-Reactive Protein) (06/25/2024 12:27 PM CDT) Pathologist [facility] C-Reactive Protein (CRP), S 3.8 <5.0 mg/L 06/25/2024 3:25 PM CDT DT Blood (Blood, Venous) 06/25/2024 12:27 PM CDT 06/25/2024 2:31 PM CDT us Brayan Swain M.D., M.S. LAB BLOOD ADD-ON Final R esult Performing Organization Address City/[facility]/ZIP Co de Phone Number [facility] [address] [place] [address], [facility] [address] [place] [address] * SS-B/La Antibodies, IgG (06/25/2024 12:27 PM CDT) [facility] SS-B/La Ab, IgG, S <0.2 <1.0 (Negative) U 06/25/2024 5:45 PM CDT [facility] Blood (Blood, Venous) 06/25/2024 12:27 PM CDT 06/25/2024 4:52 PM CDT us Brayan Swain M.D., M.S. LAB BLOOD ADD-ON Final R esult [facility] [address] [place] [address] [facility] [address] [place] [address] * SS-A/Ro Antibodies, IgG (06/25/2024 12:27 PM CDT) SS-A/Ro Ab, IgG, S <0.2 <1.0 (Negative) U 06/25/2024 5:45 PM CDT [facility] Blood (Blood, Venous) 06/25/2024 12:27 PM CDT 06/25/2024 4:52 PM CDT Brayan Swain M.D., M.S. LAB BLOOD ADD-ON Final R esult Performing Organization Address [facility] Co de Phone Number [facility] [address] [place] [address] [facility] [address] [place] [address] * Thyroid Function [place] (06/25/2024 12:27 PM CDT) Pathologist [facility] TSH, Sensitive 2.0 0.3 - 4.2 mIU/L 06/25/2024 3:25 PM CDT [facility] Blood (Blood, Venous) 06/25/2024 12:27 PM CDT 06/25/2024 2:31 PM CDT us Brayan Swain M.D., M.S. LAB BLOOD ADD-ON Final R [facility] Performing Organization Address [facility] Co de Phone Number [facility] [address] [place], [place] [phone] [place] [address] [place] [address] * DIONNE (Antinuclear Antibodies) (06/25/2024 12:27 PM CDT) Antinuclear Ab, S 0.3 <=1.0 (Negative) U 06/26/2024 12:01 PM CDT [facility] Comment: ----ADDITIONAL INFORMATION---- Method: Enzyme-linked immunoassay using HEp-2 nuclear extract supplemented with purified antigens. Blood (Blood, Venous) 06/25/2024 12:27 PM CDT 06/25/2024 4:54 PM CDT us Brayan Swain M.D., M.S. LAB BLOOD ADD-ON Final R esult [facility] [address] [place] [address] [facility] [address] [place] [address] * Vitamin B12 Assay (06/25/2024 12:27 PM CDT) Pathologist [facility] Vitamin B12 Assay, S 535 180 [...] M.D., M.S. LAB BLOOD ADD-ON [facility] Performing Organization Address [facility] Co de Phone Number [facility] [address] [place] [address], [facility] [address] [place] [address] * Folate (06/25/2024 12:27 PM CDT) Pathologist [facility] Folate, S >20.0 >=4.0 mcg/L 06/26/2024 8: 25 AM CDT DTL Blood (Blood, Venous) 06/25/2024 12:27 PM CDT 06/25/2024 2:31 PM CDT us Brayan Swain M.D., M.S. LAB BLOOD ADD-ON Final R esult Performing Organization Address City/[facility]/ZIP Co de Phone Number [facility] [address] [place], [place] [address] [address] [place] [address] * Magnesium (06/25/2024 12:27 PM CDT) Magnesium, S 2.1 1.7 - 2.3 mg/dL 06/25/2024 3:25 PM CDT DT Blood (Blood, Venous) 06/25/2024 12:27 PM CDT 06/25/2024 2:31 PM CDT Brayan Swain M.D., M.S. LAB BLOOD ADD-ON Final R esult Performing Organization Address [facility] de Phone Number [facility] [address] [place], [place] [phone] [place] [address] [address] [place] [address] * Thiamine (Vitamin B1), Whole Blood (06/25/2024 12:27 PM CDT) Pathologist [facility] Thiamine (Vitamin B1), WB 139 70 - 180 nmol/L 06/28/2024 9:45 AM [facility] Comment: ----ADDITIONAL INFORMATION---- This test was developed and its performance characteristics determined by [facility] in a manner consistent with CLIA requirements. This test has not been cleared or approved by the U.S. Food and Drug Administration. Blood (Blood, Venous) 06/25/2024 12:27 PM CDT 06/26/2024 8:26 AM CDT Brayan Swain M.D., M.S. LAB BLOOD NON ADD-ON Fin al Result Performing Organization Address City/[facility]/ZIP Co de Phone Number [facility] [address] [place] [address] [facility] [address] [place] [place] [address] * 25-Hydroxyvitamin D2 and D3 (06/25/2024 12:27 PM CDT) 25-Hydroxy D2 <4.0 ng/mL 07/01/2024 11:03 AM CUSTOMER SERVICE ANALYST SDS 25-Hydroxy D3 75 ng/mL 07/01/2024 11:03 AM CUSTOMER SERVICE ANALYST [facility] 25-Hydroxy D Total 75 ng/mL 2023 11:03 AM CUSTOMER SERVICE ANALYST [facility] Comment: Interpretation: 51-80 ng/mL (increased risk of hypercalciuria) ----REFERENCE VALUE---- 25-HYDROXY D TOTAL (D2+D3) Optimum levels in the healthy population are 20-50. ----ADDITIONAL INFORMATION---- This test was developed and its performance characteristics determined by [facility] in a manner consistent with CLIA requirements. This test has not been cleared or approved by the U.S. Food and Drug Administration. Blood (Blood, Venous) 06/25/2024 12:27 PM CDT 06/26/2024 7:36 AM CDT us Brayan Swain M.D., M.S. LAB BLOOD ADD-ON Final R esult Performing Organization Address City/[facility]/ZIP Co de Phone Number [facility] [address] [place] [address] [facility] [address] [place] [address] [place] [address] * Ferritin (06/25/2024 12:27 PM CDT) Ferritin, S 15 11 - 328 mcg/L 06/25/2024 3:25 PM CDT DTL Blood (Blood, Venous) 06/25/2024 12:27 PM CDT 06/25/2024 2:31 PM CDT us Brayan Swain M.D., M.S. LAB BLOOD ADD-ON Final R esult [facility] [address] [place] [address], [facility] DTL [facility] [address] [place] [address] * Comprehensive Metabolic Panel (06/25/2024 12:27 PM CDT) [facility] Potassium, S 3.8 3.6 - 5.2 mmol/L [...] ADD-ON Final R esult Performing Organization Address City/[facility] Co de Phone Number [facility] [address] [place] [address], [place] DTL [facility] [address] [place] [address] * Vitamin B6 Profile (PLP and PA) (06/25/2024 12:26 PM CDT) Pyridoxal 5-Phosphate (PLP), P 16 5 - 50 mcg/L 07/01/2024 10:04 AM [facility] Comment: ----ADDITIONAL INFORMATION---- This test was developed and its performance characteristics determined by [facility] in a manner consistent with CLIA requirements. This test has not been cleared or approved by the U.S. Food and Drug Administration. Pyridoxic Acid (PA), P 7 3 - 30 mcg/L 07/01/2024 10:04 AM [facility] Comment: ----ADDITIONAL INFORMATION---- This test was developed and its performance characteristics determined by [facility] in a manner consistent with CLIA requirements. This test has not been cleared or approved by the U.S. Food and Drug Administration. Blood (Blood, Venous) 06/25/2024 12:26 PM CDT 06/26/2024 3:51 PM CDT Brayan Swain M.D., M.S. LAB BLOOD NON ADD-ON Fin al Result Performing Organization Address City/[facility]/ZIP Co de Phone Number [facility] [address] [place] [address] [facility] [address] [place] [address] [place] [address] * Riboflavin (Vitamin B2) (06/25/2024 12:26 PM CDT) Riboflavin (Vitamin B2), P 8 1 - 19 mcg/L 06/26/2024 10:39 PM CDT [facility] Comment: ----ADDITIONAL INFORMATION---- This test was developed and its performance characteristics determined by [facility] in a manner consistent with CLIA requirements. This test has not been cleared or approved by the U.S. Food and Drug Administration. Blood (Blood, Venous) 06/25/2024 12:26 PM CDT 06/26/2024 7:17 AM CDT Brayan Swain M.D., M.S. LAB BLOOD NON ADD-ON Fin al Result [facility] [address] [place] [address] [facility] [address] [place] [address] [place] [address] documented in this encounter Visit Diagnoses Diagnosis Immunodeficiency (HCC)- Primary Bronchiectasis (HCC) Burning Mouth Syndrome documented in this encounter Care Teams Business Liaison Officer Relationship Specialty Start Date End Date Elsewhere, Pcp PCP - General 11/07/23 documented as of this encounter
--- OUTSIDE RECORDS SUMMARY | 2024-07-07 14:47 | XMS_ITS | Encounter Summary ---
Author Organization [facility] Address [address] [place] [address] Care Team Providers Care Retort Forker Name Role Phone Elsewhere, Pcp Primary Care Provider Unavailabl e Encounter Details Date Type Department Care Team (Latest Contact Info) Description 06/23/2024 3:20 PM CDT - 06/23/2024 11:59 PM CDT Hospital Encounter Department of Laboratory Medicine and Pathology, [facility], in [place], [place] [address] [place] [address] Ada Day APRN, C.N.P., D.N.P. [address] [place] [address] Hormone Therapy Status Discharge Disposition: Home or Self Care Social History Tobacco Use Types Packs/Day Years Used Date Smoking Tobacco: Never Passive Smoke Exposure: Never Smokeless Tobacco: Never Comments:I have never used t obacco. Alcohol Use Standard Drinks/Week Comments Never 0 (1 standard drink = 0.6 oz pur e alcohol) [facility] Utilities Answer Date Recorded In the past 12 months has th e [employer], gas, oil, or water [employer] threatened to shut off services in your [...] often do you attend chur ch or hinduism services? Never 06/04/2022 Do you [...] and heating? Not very hard 06/04/2022 [facility] Occupat ional Health - Occupational Stress [...] your living situation today? I have a [facility] place to live 11/08/2023 Education Answer Date Recorded What is the highest level of school you have completed or the highest degree you have received? Master's degree (e.g., MA, MS, Milly, MEd, POPCORN CANDY MAKER, MADELYN) 06/04/2022 Comments No Sex and Gender Information Value Date Recorded Sex Assigned at Female 06/04/2022 4:58 PM CDT Legal Sex Female 2:16 PM CDT Gender Identity Female 06/04/2022 4:58 PM CDT Sexual Orientation Straight 06/04/2022 4: 58 PM CDT documented as of this encounter Medications at Time of Discharge acetaminophen (TYLENOL) 500 mg tablet Take 1-2 tablets (500-1,000 mg total) by mouth every 6 (six) hours as needed (pain). 08/27/2022 B complex-vitamin C (SUPERPLEX-T) per tablet Take 1 tablet by mouth 2 (two) times a week. Mon & Weds calcium-vitamin D3-vitamin K (VIACTIV) 650 mg-12.5 mcg (500 Unit)-40 mcg tablet,chewable per chewable tablet Chew 1 tablet 2 (two) times a day with meals. cholecalciferol (Vitamin D3) 50 mcg (2,000 Unit) capsule Take 50 mcg by mouth daily. diphenhydrAMINE (BenadryL) 25 mg tablet Take 25 mg by mouth. Prior to infusions as directed diphenhydrAMINE- lidocaine-antaci d (Magic Mouthwash) 1:1:1 Take 10 mL by mouth as needed. 10/08/2023 docusate sodium 100 mg capsule Take 2 tablets (200 mg total) by mouth 2 (two) times a day as needed for constipation. 10/18/2023 estradioL (ESTRACE) 0.5 mg tablet Take 0.75 mg by mouth daily. 03/14/2022 glucosamine HCl/chondroitin merchant (GLUCOSAMINE-CHO NDROITIN ORAL) Take 2 tablets by mouth daily. 1500 - 1200 lidocaine viscous (XYLOCAINE) 2 % mucosal solution Apply 15 mL to the mouth or throat 4 (four) times a day after meals and bedtime. Swish and spit, do not swallow. 100 mL 2 10/18/2023 multivitamin-min erals-lutein (CENTURY MATURE) tablet Take 1 tablet by mouth daily. sulfamethoxazole -trimethoprim (Bactrim) 400-80 mg per tablet Take 1 tablet by mouth daily. 90 tablet 3 03/03/2024 valACYclovir (VALTREX) 500 mg tablet Take 1 tablet (500 mg total) by mouth 2 (two) times a day. 180 tablet 10/27/2023 ZINC SULFATE ORAL Take 220 mg by mouth 2 (two) times a week. documented as of this encounter Plan of Treatment Upcoming Encounters Date Type Department Care Team (Late st Contact Info) Description 07/21/2024 1:15 PM MANAGER LABOR DELIVERY Infusion Department of Infusion Therapy in [place], [place] [address] [place] [address] Mehreen Landis M.D. 08/04/2024 4:00 PM MANAGER LABOR DELIVERY Comprehensive Visit Division of Pulmonary Medicine in [place], [place] [address] [place] [address] Simon Mcnulty M.D., M.P.H. [address] [place] [address] 08/14/2024 1:15 PM MANAGER LABOR DELIVERY Infusion Department of Infusion Therapy in [place], [place] [address] [address] Mehreen Landis M.D. 09/07/2024 1:20 PM MANAGER LABOR DELIVERY Comprehensive Visit Department of Dermatology in [place], [place] [address] [place] [phone] Sanjana Sahu M.D. [address] [place] [phone] documented as of this encounter Procedures Procedure Name Priority Date/Time Associated Diagnosis Comments ESTRADIOL, S Routine 06/23/2024 3:30 PM CDT Hormone Therapy Status documented in this encounter Results * Estradiol (06/23/2024 3:30 PM CDT) Estradiol, Mass Spectrometry, S 17 pg/mL 06/26/2024 11:28 AM CDT [facility] Comment: ----REFERENCE VALUE---- Premenopausal: 15-350 (E2 levels vary widely through the menstrual cycle.) Postmenopausal: <10 ----ADDITIONAL INFORMATION---- This test was developed and its performance characteristics determined by [facility] in a manner consistent with CLIA requirements. This test has not been cleared or approved by the U.S. Food and Drug Administration. Blood (Blood, Venous) 06/23/2024 3:30 PM CDT 06/24/2024 7:40 AM CDT us Angela Verma APRNNCasandra., D.N.P. LAB BLOOD NON ADD-ON Final Result [facility] [address] [place] [address] [facility] [address] [place] [address] [place] [address] documented in this encounter Visit Diagnoses Diagnosis Hormone Therapy Status documented in this encounter Care Teams Retort Forker Relationship Specialty Start Date End Date Elsewhere, Pcp PCP - General 11/07/23 documented as of this encounter
--- OUTSIDE RECORDS SUMMARY | 2024-07-07 14:47 | XMS_ITS ---
Author Organization [facility] Address [address] [place] [address] Care Team Providers Care Sourcing Specialist Name Role Phone Unavailable Unavailable Unavailable Surgery Details Not on file Complications Check Surgery Details section. Procedure Estimated Blood Loss Check Surgery Details section. Procedure Findings Check Surgery Details section. Procedure Specimens Taken Check Surgery Details section.
--- OUTSIDE RECORDS SUMMARY | 2024-07-07 14:47 | XMS_ITS | Encounter Summary ---
Author Organization [facility] Address [address] [place] [address] Care Team Providers Care Director Of Event Management Name Role Phone Elsewhere, Pcp Primary Care Provider Unavailabl e Reason for Visit * Episode Based Medications (Routine) - Authorized Specialty Diagnoses / Procedures Referred By Contac t Referred To Contact Diagnoses Hypogammaglobulinemia (HCC) Other Combined Immunodeficiencies (HCC) Procedures AZ GAMMAGARD LIQUID INJ Mehreen Landis M.D. Division of Allergic Diseases in [place], [place] [address] [place] [address] Phone: tel: fax: Referral ID Status Reason Start Date Expiration Date V isits Requested Visits Authorized [id number] Authorized 10/17/2023 08/25/2024 12 12 Encounter Details Date Type Department Care Team (Latest Contact Info) Description 06/25/2024 12:16 PM CDT - 06/25/2024 11:59 PM CDT Hospital Encounter Department of Laboratory Medicine and Pathology, [facility], in [place], [place] [address] [place] [address] [place] [phone] Mehreen Landis M.D. Hypogammaglobulinemia (HCC); Other Combined Immunodeficiencies (HCC); Immunodeficiency (HCC); Bronchiectasis (HCC); Burning Mouth Syndrome Discharge Disposition: Home or Self Care Social [...] has e electric, gas, oil, or water [employer] threatened to shut off services in your [...] any clubs o r organizations such as congregational groups, unions, fraternal or athletic groups, or [...] care, and heating? Not very hard 06/04/2022 [facility] Occupat ional Health - [...] your living situation today? I have a [facility] place to live 11/08/2023 Education Answer Date Recorded What is the highest level of school you have completed or the highest degree you have received? Master's degree (e.g., MA, MS, Milly, MEd, DUCK BILL OPERATOR, MADELYN) 06/04/2022 Comments No Sex and Gender [...] 2 (two) times a week. Mon & calcium-vitamin D3-vitamin K (VIACTIV) 650 mg-12.5 mcg [...] st Contact Info) Description 07/21/2024 1:15 PM WET PLANT OPERATOR Infusion Department of Infusion Therapy in [place], [place] [address] [address] Mehreen Landis M.D. 08/04/2024 4:00 PM WET PLANT OPERATOR Comprehensive Visit Division of Pulmonary Medicine in [place], [place] [address] [place] [phone] Simon Mcnulty M.D., M.P.H. [address] [place] [phone] 08/14/2024 1:15 PM WET PLANT OPERATOR Infusion Department of Infusion Therapy in [place], [place] [address] [place] [address] Mehreen Landis M.D. 09/07/2024 1:20 PM WET PLANT OPERATOR Comprehensive Visit Department of Dermatology in [place], [place] [address] [place] [phone] Sanjana Sahu M.D. [address] [place] [phone] documented as of this encounter Procedures Procedure Name Priority Date/Time Associated Diagnosis Comments QN LYMPHOCYTE SUBSETS: T, B, AND NK, B Routine 06/25/2024 12:28 PM CDT Immunodeficiency (HCC) ZINC, S Routine 06/25/2024 12:28 PM CDT Burning Mouth Syndrome CBC WITH DIFFERENTIAL, B Routine 06/25/2024 12:28 PM CDT Immunodeficiency (HCC) Bronchiectasis (HCC) HEMOGLOBIN A1C, B Routine 06/25/2024 12:28 PM CDT Burning Mouth Syndrome THYROID FUNCTION [...] 12:27 PM CDT Immunodeficiency (HCC) Bronchiectasis (HCC) C-REACTIVE PROTEIN (CRP), S/P Routine 06/25/2024 12:27 PM CDT Burning Mouth Syndrome ANTINUCLEAR ABS (DIONNE), S Routine 06/25/2024 12:27 PM CDT Burning Mouth Syndrome MAGNESIUM, S Routine 06/25/2024 12:27 PM CDT Burning Mouth Syndrome IMMUNOGLOBULIN G (IGG), S Routine 06/25/2024 12:27 PM CDT Hypogammaglobulinemia (HCC) Other Combined Immunodeficiencies (HCC) FOLATE, S Routine 06/25/2024 12:27 PM CDT Burning Mouth Syndrome FERRITIN, S Routine 06/25/2024 12:27 PM CDT Immunodeficiency (HCC) Bronchiectasis (HCC) VITAMIN B12 ASSAY, S Routine 06/25/2024 12:27 PM CDT Burning Mouth Syndrome COMPREHENSIVE METABOLIC PANEL, S/P Routine 06/25/2024 12:27 PM CDT Immunodeficiency (HCC) Bronchiectasis (HCC) RIBOFLAVIN (VITAMIN B2), P Routine 06/25/2024 12:26 PM CDT Burning Mouth Syndrome VITAMIN B6 PROF (PLP AND PA), P Routine 06/25/2024 12:26 PM CDT Burning Mouth Syndrome documented in this encounter Results * Zinc (06/25/2024 12:28 PM CDT) Zinc, S 76 60 - 106 mcg/dL 06/26/2024 9:20 AM CDT [facility] Comment: ----ADDITIONAL INFORMATION---- This test was developed and its performance characteristics determined by [facility] in a manner consistent with CLIA requirements. This test has not been cleared or approved by the U.S. Food and Drug Administration. Blood (Blood, Venous) 06/25/2024 12:28 PM CDT 06/25/2024 9:35 PM CDT us Brayan Swain M.D., M.S. LAB BLOOD NON ADD-ON Fin al Result [facility] [address] [place] [address] [facility] [address] [place] [address] [place] [address] * (ABNORMAL) Hemoglobin A1c (06/25/2024 12:28 PM [...] M.S. LAB BLOOD ADD-ON Final R esult [facility] [address] [place] [address], [place] DTL [facility] [address] [place] [address] * (ABNORMAL) CBC with Differential, Blood (06/25/2024 12:28 PM CDT) Pathologist [facility] [place] Hemoglobin 11.9 11.6 - 15.0 g/dL 06/25/2024 [...] M.S. LAB BLOOD ADD-ON Final R esult [facility] [address] [place] [address], [place] [facility] [facility] [address] [place] [address] [facility] [address] [place] [address] * (ABNORMAL) Quantitative Lymphocyte Subsets: T, B, [...] Ratio 0.8(L) >=0.9 06/26/2024 11:48 AM CDT [facility] Comment: ----ADDITIONAL INFORMATION---- This test was developed using an analyte specific reagent. Its performance characteristics were determined by [facility] in a manner consistent with CLIA requirements. This test has not been cleared or approved by the U.S. Food and Drug Administration. Blood (Blood, Venous) 06/25/2024 12:28 PM CDT 06/25/2024 5:29 PM CDT Brayan Swain M.D., M.S. LAB BLOOD ADD-ON Final R [facility] Performing Organization Address City/[facility] Co de Phone Number [facility] [address] [place] [address] [facility] [address] [place] [address] [place] [address] * CRP (C-Reactive Protein) (06/25/2024 12:27 PM CDT) Pathologist [facility] C-Reactive Protein (CRP), S 3.8 <5.0 mg/L 06/25/2024 3:25 PM CDT [facility] Blood (Blood, Venous) 06/25/2024 12:27 PM CDT 06/25/2024 2:31 PM CDT Brayan Swain M.D., M.S. LAB BLOOD ADD-ON Final R [facility] Performing Organization Address City/[facility] Co de Phone Number [facility] [address] [place] [address], [facility] [address] [place] [address] * SS-B/La Antibodies, IgG (06/25/2024 12:27 PM CDT) Pathologist [facility] SS-B/La Ab, IgG, S <0.2 <1.0 (Negative) U 06/25/2024 5:45 PM CDT [facility] Blood (Blood, Venous) 06/25/2024 12:27 PM CDT 06/25/2024 4:52 PM CDT us Brayan Swain M.D., M.S. LAB BLOOD ADD-ON Final R esult [facility] [address] [place] [address] [facility] [address] [place] [address] * SS-A/Ro Antibodies, IgG (06/25/2024 12:27 PM CDT) Pathologist [facility] [place] SS-A/Ro Ab, IgG, S <0.2 <1.0 (Negative) U 06/25/2024 5:45 PM CDT [facility] Blood (Blood, Venous) 06/25/2024 12:27 PM CDT 06/25/2024 4:52 PM CDT us Brayan Swain M.D., M.S. LAB BLOOD ADD-ON Final R esult Performing Organization Address City/[facility] Co de Phone Number [facility] [address] [place] [address] [facility] [address] [place] [address] * Thyroid Function [place] (06/25/2024 12:27 PM CDT) [facility] TSH, Sensitive 2.0 0.3 - 4.2 mIU/L 06/25/2024 3:25 PM CDT DT Blood (Blood, Venous) 06/25/2024 12:27 PM CDT 06/25/2024 2:31 PM CDT us Brayan Swain M.D., M.S. LAB BLOOD ADD-ON Final R esult [facility] [address] [place] [address], [place] [facility] [facility] [address] [place] [address] * DIONNE (Antinuclear Antibodies) (06/25/2024 12:27 PM CDT) [facility] Antinuclear Ab, S 0.3 <=1.0 (Negative) U 06/26/2024 12:01 PM CDT [facility] Comment: ----ADDITIONAL INFORMATION---- Method: Enzyme-linked immunoassay using HEp-2 nuclear extract supplemented with purified antigens. Blood (Blood, Venous) 06/25/2024 12:27 PM CDT 06/25/2024 4:54 PM CDT Brayan Swain M.D., M.S. LAB BLOOD ADD-ON Final R esult Performing Organization Address [facility] Co de Phone Number [facility] [address] [place] [address] [facility] [address] [place] [address] * Vitamin B12 Assay (06/25/2024 12:27 PM CDT) [facility] Vitamin B12 Assay, S 535 180 - 914 ng/L 06/26/2024 8:49 AM CDT [facility] Comment: ----ADDITIONAL INFORMATION---- In patients being evaluated [...] ADD-ON Final R esult Performing Organization Address City/[facility] Co de Phone Number [facility] [address] [place] [address], [place] [facility] [facility] [address] [place] [address] * Folate (06/25/2024 12:27 PM CDT) [facility] Folate, S >20.0 >=4.0 mcg/L 06/26/2024 8: 25 AM CDT D[facility] Blood (Blood, Venous) 06/25/2024 12:27 PM CDT 06/25/2024 2:31 PM CDT Brayan Swain M.D., M.S. LAB BLOOD ADD-ON Final R esult Performing Organization Address [facility] de Phone Number [facility] [address] [place] [address] * Magnesium (06/25/2024 12:27 PM CDT) [facility] Magnesium, S 2.1 1.7 - 2.3 mg/dL 06/25/2024 3:25 PM CDT DT Blood (Blood, Venous) 06/25/2024 12:27 PM CDT 06/25/2024 2:31 PM CDT Brayan Swain M.D., M.S. LAB BLOOD ADD-ON Final R [facility] Performing Organization Address [facility] de Phone Number [facility] [address] [place], [place] [phone] [place] [address] [address] [place] [address] * Thiamine (Vitamin B1), Whole Blood (06/25/2024 12:27 PM CDT) [facility] Thiamine (Vitamin B1), WB 139 70 - 180 nmol/L 06/28/2024 9:45 AM [facility] Comment: ----ADDITIONAL INFORMATION---- This test was developed and its performance characteristics determined by [facility] in a manner consistent with CLIA requirements. This test has not been cleared or approved by the U.S. Food and Drug Administration. Blood (Blood, Venous) 06/25/2024 12:27 PM CDT 06/26/2024 8:26 AM CDT Brayan Swain M.D., M.S. LAB BLOOD NON ADD-ON Fin al Result Performing Organization Address City/[facility]/ZIP Co de Phone Number [facility] [address] [place] [address] [facility] [address] [place] [address] [place] [address] * 25-Hydroxyvitamin D2 and D3 (06/25/2024 12:27 PM CDT) 25-Hydroxy D2 <4.0 ng/mL 07/01/2024 11:03 AM WET PLANT OPERATOR [facility] 25-Hydroxy D3 75 ng/mL 07/01/2024 11:03 AM WET PLANT OPERATOR [facility] 25-Hydroxy D Total 75 ng/mL 2023 11:03 AM [facility] Comment: Interpretation: 51-80 ng/mL (increased risk of hypercalciuria) ----REFERENCE VALUE---- 25-HYDROXY D TOTAL (D2+D3) Optimum levels in the healthy population are 20-50. ----ADDITIONAL INFORMATION---- This test was developed and its performance characteristics determined by [facility] in a manner consistent with CLIA requirements. This test has not been cleared or approved by the U.S. Food and Drug Administration. Blood (Blood, Venous) 06/25/2024 12:27 PM CDT 06/26/2024 7:36 AM CDT Brayan Swain M.D., M.S. LAB BLOOD ADD-ON Final R esult Performing Organization Address City/[facility]/ZIP Co de Phone Number [facility] [address] [place] [address] [facility] [address] [place] [address] [place] [address] * Ferritin (06/25/2024 12:27 PM CDT) Ferritin, S 15 11 - 328 mcg/L 06/25/2024 3:25 PM CDT [facility] Blood (Blood, Venous) 06/25/2024 12:27 PM CDT 06/25/2024 2:31 PM CDT Brayan Swain M.D., M.S. LAB BLOOD ADD-ON Final R esult [facility] [address] [place] [address], [place] [facility] [facility] [address] [place] [address] * Comprehensive Metabolic Panel (06/25/2024 12:27 PM CDT) [facility] Potassium, S 3.8 3.6 - 5.2 mmol/L [...] ADD-ON Final R esult Performing Organization Address City/[facility]/ZIP Co de Phone Number [facility] [address] [place] [address], [facility] [address] [place] [address] * (ABNORMAL) Immunoglobulin G (IgG) (06/25/2024 12:27 PM CDT) Immunoglobulin G (IgG), S 753(L) 767 - 1590 mg/dL 06/25/2024 6:36 PM CDT [facility] Blood (Blood, Venous) 06/25/2024 12:27 PM CDT 06/25/2024 4:55 PM CDT Mehreen Landis M.D. LAB BLOOD ADD-ON Final Resul t Performing Organization Address City/[facility] Co de Phone Number [facility] [address] [place] [address] [facility] [address] [place] [address] * Vitamin B6 Profile (PLP and PA) (06/25/2024 12:26 PM CDT) Pyridoxal 5-Phosphate (PLP), P 16 5 - 50 mcg/L 07/01/2024 10:04 AM [facility] Comment: ----ADDITIONAL INFORMATION---- This test was developed and its performance characteristics determined by [facility] in a manner consistent with CLIA requirements. This test has not been cleared or approved by the U.S. Food and Drug Administration. Pyridoxic Acid (PA), P 7 3 - 30 mcg/L 07/01/2024 10:04 AM WET PLANT OPERATOR [facility] Comment: ----ADDITIONAL INFORMATION---- This test was developed and its performance characteristics determined by [facility] in a manner consistent with CLIA requirements. This test has not been cleared or approved by the U.S. Food and Drug Administration. Blood (Blood, Venous) 06/25/2024 12:26 PM CDT 06/26/2024 3:51 PM CDT Brayan Swain M.D., M.S. LAB BLOOD NON ADD-ON Fin al Result Performing Organization Address [facility] Co de Phone Number [facility] [address] [place] [address] [facility] [address] [place] [facility] [place] [address] * Riboflavin (Vitamin B2) (06/25/2024 12:26 PM CDT) Riboflavin (Vitamin B2), P 8 1 - 19 mcg/L 06/26/2024 10:39 PM CDT [facility] Comment: ----ADDITIONAL INFORMATION---- This test was developed and its performance characteristics determined by [facility] in a manner consistent with CLIA requirements. This test has not been cleared or approved by the U.S. Food and Drug Administration. Blood (Blood, Venous) 06/25/2024 12:26 PM CDT 06/26/2024 7:17 AM CDT Brayan Swain M.D., M.S. LAB BLOOD NON ADD-ON Fin al Result Performing Organization Address City/[facility]/ZIP Co de Phone Number [facility] [address] [place] [address] [facility] [address] [place] [address] [place] [address] documented in this encounter Visit Diagnoses Diagnosis Hypogammaglobulinemia (HCC) Other Combined Immunodeficiencies (HCC) Immunodeficiency (HCC) Bronchiectasis (HCC) Burning Mouth Syndrome documented in this encounter Care Teams Director Of Event Management Relationship Specialty Start Date End Date Elsewhere, Pcp PCP - General 11/07/23 documented as of this encounter
--- OUTSIDE RECORDS SUMMARY | 2024-07-07 14:47 | XMS_ITS | Encounter Summary ---
Author Organization [facility] Address [address] [place] [address] Care Team Providers Care Master Cook Name Role Phone Elsewhere, Pcp Primary Care Provider Unavailabl e Encounter Details Date Type Department Care Team (Late st Contact Info) Description 06/23/2024 2:45 PM CDT Education Menopause and [facility] in [place], [place] [address] [place] [phone] Ada Day APRN, C.N.P., D.N.P. [address] [place] [phone] Jodee Juan, Drea [address] [place] [address] [phone] Menopause Surgical Social History Tobacco Use Types Packs/Day Years Used Date Smoking Tobacco: Never Passive Smoke Exposure: Never Smokeless Tobacco: Never Comments:I have never used t obacco. Alcohol Use Standard Drinks/Week Comments Never 0 (1 standard drink = 0.6 oz pur e alcohol) [facility] Utilities Answer Date Recorded In the [...] often do you attend chur ch or christian services? Never 06/04/2022 Do you belong to any clubs o r organizations such as scientology groups, unions, fraternal or athletic groups, or [...] care, and heating? Not very hard 06/04/2022 [facility] [place] of Occupat ional Health - Occupational Stress [...] your living situation today? I have a [facility] place to live 11/08/2023 Education Answer Date Recorded What is the highest level of school you have completed or the highest degree you have received? Master's degree (e.g., MA, MS, Milly, MEd, TEST ANALYST, MADELYN) 06/04/2022 Comments No Sex and Gender Information Value Date Recorded Sex Assigned at Female 06/04/2022 4:58 PM CDT Legal Sex Female 2:16 PM CDT Gender Identity Female 06/04/2022 4:58 PM CDT Sexual Orientation Straight 06/04/2022 4: 58 PM CDT documented as of this encounter Progress Notes * Jodee Juan R.N. - 06/23/2024 2:45 PM CDT SUBJECTIVE REASON FOR VISIT Alexia Phillips seen today for initial patient education Referring provider: Ms. Ada Day, SUSPENDER CUTTER, SUPERVISOR ROLLER PRINTING, DNP ASSESSMENT/PLAN Patient education provided to: patient Teaching methods included: discussion, explanation, and printed material Discussion included: moisturizers, vaginal health, and vaginal estrogen therapy application instructions (but not prescribed). Education materials were given to the patient: yes documented in this encounter Plan of Treatment Upcoming Encounters Date Type Department Care Team (Late st Contact Info) Description 07/21/2024 1:15 PM DIE CAST DIE MAKER Infusion Department of Infusion Therapy in [address] [address] Mehreen Landis M.D. 08/04/2024 4:00 PM DIE CAST DIE MAKER Comprehensive Visit Division of Pulmonary Medicine in [place], [place] [address] [place] [phone] Simon Mcnulty M.D., M.P.H. [address] [place] [phone] 08/14/2024 1:15 PM DIE CAST DIE MAKER Infusion Department of Infusion Therapy in [address] [address] Mehreen Landis M.D. 09/07/2024 1:20 PM DIE CAST DIE MAKER Comprehensive Visit Department of Dermatology in [place], [place] [address] [place] [phone] Sanjana Sahu M.D. [address] [place] [phone] documented as of this encounter Visit Diagnoses Diagnosis Menopause Surgical documented in this encounter Care Teams Master Cook Relationship Specialty Start Date End Date Elsewhere, Pcp PCP - General 11/07/23 documented as of this encounter
--- OUTSIDE RECORDS SUMMARY | 2024-07-07 14:47 | XMS_ITS | Referral Summary ---
Author Organization [facility] Address [address] [place] [address] Care Team Providers Care Pony Cylinder Press Operator Name Role Phone Elsewhere, Pcp Primary Care Provider Unavailabl e Source Comments Patient records contain information from all sites at [facility]. For routine questions regarding patient records, call [phone] during business hours, M-F 8:00 AM - 5:00 PM Central Time. Record requests for emergency care only can be directed to [phone] at any time.[facility] Encounters Date Type Department Care Team Description 07/06/2024 Orders Only Division of Pediatric Allergy & Immunology in [place], [place] [address] [place] [phone] Brayan Swain M.D., M.S. 06/25/2024 12:16 PM CDT - 06/25/2024 11:59 PM CDT Hospital Encounter Department of Laboratory Medicine and Pathology, [facility], in [place], [place] [address] [facility] [place] [place] [phone] Mehreen Landis M.D. Hypogammaglobulinemia (HCC); Other Combined Immunodeficiencies (HCC); Immunodeficiency (HCC); Bronchiectasis (HCC); Burning Mouth Syndrome Discharge Disposition: Home or Self Care 06/25/2024 1:15 PM CDT Infusion Department of Infusion Therapy in [address] [place] [address] Mehreen Landis M.D. Hypogammaglobulinemia (HCC) (Primary Dx); Other Combined Immunodeficiencies (HCC) Discharge Disposition: Home or Self Care 06/23/2024 3:20 PM CDT - 06/23/2024 11:59 PM CDT Hospital Encounter Department of Laboratory Medicine and Pathology, [facility] in [address] [phone] Ada Day APRN, C.N.P., D.N.P. Hormone Therapy Status Discharge Disposition: Home or Self Care 06/23/2024 2:45 PM CDT Education Menopause and [facility] Sexual [facility] Clinic in [address] [phone] Ada Day APRN, C.N.P., D.N.P. Jodee Juan, RDontrell. Menopause Surgical 06/23/2024 1:30 PM CDT Comprehensive Visit [facility]opause and [facility] in [address] [phone] Ada Day APRN, C.N.P., D.N.P. Menopause Surgical (Primary Dx); Symptoms Vasomotor; Immunodeficiency (HCC); Hormone Therapy Status 06/22/2024 12:30 PM CDT Clinical Communication Virtual Review in [address] [phone] Pre-visit Intake 06/15/2024 1:30 PM CDT Office Visit Division of Allergic Diseases in [place] [phone] Brayan Swain M.D., M.S. Immunodeficiency (HCC) (Primary Dx); Bronchiectasis (HCC); Burning Mouth Syndrome 06/05/2024 3:00 PM CDT Office Visit Division of Thoracic Surgery in [place], [place] [address] [place] [phone] Radha Keen APRN, C.N.P., M.S.N. Thymoma (Primary Dx) 06/05/2024 12:52 PM CDT - 06/05/2024 11:59 PM CDT Hospital Encounter Department of Radiology, [facility], in [place], [place] [address] [place] [phone] Radha Keen APRN, C.N.P., M.S.N. Thymoma Discharge Disposition: Home or Self Care 06/04/2024 11:30 AM CDT Clinical Communication Virtual Review in [address] [phone] 05/28/2024 1:15 PM CDT Infusion Department of Infusion Therapy in [address] [place] [address] Mehreen Landis M.D. Other Combined Immunodeficiencies (HCC) (Primary Dx); Hypogammaglobulinemia (HCC) 05/11/2024 Clinical Communication Division of Thoracic Surgery in [address] [phone] Lázaro Claudio M.D., Ph.D. 05/11/2024 1:00 PM CDT Clinical Communication Virtual Review in [address] [phone] Pre-visit Intake 04/30/2024 1:00 PM CDT Infusion Department of Infusion Therapy in [place] [address] [place] [address] Mehreen Landis M.D. Hypogammaglobulinemia (HCC) (Primary Dx); [...] (two) times a week. Mon & Weds Active diphenhydrAMINE -lidocaine-anta maryana (Magic Mouthwash) 1:1:1 [...] (07/31/2022): Added automatically from request for surgery [id number] Immunizations Name Administration Dates Next Due Influenza [...] quad (FLUZONE/FLUARIX) (6 months and older)(PF) 05/26/2019,05/31/2017 Social History Tobacco Use Types Packs/Day Years Used Date Smoking Tobacco: Never Passive Smoke Exposure: Never Smokeless Tobacco: Never Tobacco Cessation:Counseling Given: Not Answered Comments:I have never used tobacco. Alcohol Use Standard Drinks/Week Comments Never 0 (1 standard drink = 0.6 oz pur e alcohol) [facility] Utilities Answer Date Recorded In the [...] How often do you attend chur or oriental orthodox services? Never 06/04/2022 Do [...] care, and heating? Not very hard 06/04/2022 [facility] [place] of Occupat ional Health - Occupational Stress [...] Master's degree (e.g., MA, MS, Milly, MEd, SERGING MACHINE OPERATOR, MADELYN) 06/04/2022 Comments No Sex and [...] CDT Oxygen Saturation 96% 10/18/2023 3:45 PM FINANCIAL ADVISOR Inhaled Oxygen Concentration - - Weight 70.5 kg (155 lb 6.8 oz) 06/25/2024 12:41 PM CDT Height 169.5 cm (5' 6.73) 06/15/2024 1:22 PM CD T Body Mass Index 24.54 06/15/2024 1:22 PM CDT Plan of Treatment Upcoming Encounters Date Type Department Care Team (Late st Contact Info) Description 07/21/2024 1:15 PM FINANCIAL ADVISOR Infusion Department of Infusion Therapy in [address] [address] Mehreen Landis M.D. 08/04/2024 4:00 PM FINANCIAL ADVISOR Comprehensive Visit Division of Pulmonary Medicine in [place], [place] [address] [place] [phone] Simon Mcnulty M.D., M.P.H. [address] [place] [phone] 08/14/2024 1:15 PM FINANCIAL ADVISOR Infusion Department of Infusion Therapy in [address] [address] Mehreen Landis M.D. 09/07/2024 1:20 PM FINANCIAL ADVISOR Comprehensive Visit Department of Dermatology in [place], [place] [address] [place] [phone] Sanjana Sahu M.D. [address] [place] [phone] Medical Devices Implanted Type Area Chip Silo Tender Device Identifier Shelf Expiration Date Model / Serial / Lot Wax Tirso Nblbl 2.5gr - [id number] Implanted:Qty : 1 on 08/22/2022 by Lázaro Claudio M.D., Ph.D. at [facility] Hardware e.g. pins/screws/r ods [employer] 901 / / Clp Hrzn Ti 6 Clp Lg Orng - [id number] Implanted:Qty : 1 on 08/22/2022 by Lázaro Claudio M.D., Ph.D. at [facility] Hardware e.g. pins/screws/r ods [employer] [id number] 04/16/2027 [id number] / / [id number] Clp Hrzn Ti 24 Clp Nima - [id number] Implanted:Qty : 1 on 08/22/2022 by Lázaro Claudio M.D., Ph.D. at [facility] Hardware e.g. pins/screws/r ods [employer] [id number] 04/16/2027 [id number] / / [id number] Clp Hrzn Ti 6 Clp Lg Orng - [id number] Implanted:Qty : 1 on 08/22/2022 by Lázaro Claudio M.D., Ph.D. at [facility] Hardware e.g. pins/screws/r ods [employer] [id number] 04/16/2027 [id number] / / [id number] Clp Hrzn Ti 6 Clp Nima - [id number] Implanted:Qty : 1 on 08/22/2022 by Lázaro Claudio M.D., Ph.D. at [facility] Hardware e.g. pins/screws/r ods Right: Chest [employer] [id number] 01/07/2027 [id number] / / [id number] Clp Hrzn Ti 6 Clp Md Nima - [id number] Implanted:Qty : 1 on 08/22/2022 by Lázaro Claudio M.D., Ph.D. at [facility] Hardware e.g. pins/screws/r ods Right: Chest [employer] [id number] 01/07/2027 [id number] / / [id number] Clp Hrzn Ti 6 Clp Lg Orng - [id number] Implanted:Qty : 1 on 08/22/2022 by Lázaro Claudio M.D., Ph.D. at [facility] Hardware e.g. pins/screws/r ods Right: Chest [employer] [id number] 02/19/2027 [id number] / / [id number] Clp Hrzn Ti 6 Clp Md Nima - [id number] Implanted:Qty : 1 on 08/22/2022 by Lázaro Claudio M.D., Ph.D. at [facility] Hardware e.g. pins/screws/r ods Right: Chest [employer] [id number] 01/07/2027 [id number] / [id number] Clp Hrzn Ti 6 Clp Md Nima - [id number] Implanted:Qty : 1 on 08/22/2022 by Lázaro Claudio M.D., Ph.D. at [facility] Hardware e.g. pins/screws/r ods Right: Chest [employer] [id number] 04/09/2027 [id number] / / [id number] Clp Hrzn Ti 24 Clp Md Nima - [id number] Implanted:Qty : 1 on 08/22/2022 by Lázaro Claudio M.D., Ph.D. at [facility] Hardware e.g. pins/screws/r ods Right: Chest [employer] [id number] 04/16/2027 [id number] / / [id number] Clp Hrzn Ti 24 Clp Nima - [id number] Implanted:Qty : 1 on 08/22/2022 by Lázaro Claudio M.D., Ph.D. at [facility] Hardware e.g. pins/screws/r ods Right: Chest [employer] [id number] 04/16/2027 [id number] / / [id number] Imaging Marker Imaging Marker Right: Arm [...] reagent. Its performance characteristics were determined by [facility] in a manner consistent with CLIA requirements. This test has not been cleared or approved by the U.S. Food and Drug Administration. Blood (Blood, Venous) 06/25/2024 12:28 PM CDT 06/25/2024 5:29 PM CDT Brayan Swain M.D., M.S. LAB BLOOD ADD-ON Final R esult [facility] [place] [address] [place] [address] [facility] [address] [place] [address] [place] [id number] * Zinc (06/25/2024 12:28 PM CDT) Pathologist [facility] [place], S 76 60 - 106 mcg/dL 06/26/2024 9:20 AM CDT [facility] Comment: ----ADDITIONAL INFORMATION---- This test was developed and its performance characteristics determined by [facility] in a manner consistent with CLIA requirements. This test has not been cleared or approved by the U.S. Food and Drug Administration. Blood (Blood, Venous) 06/25/2024 12:28 PM CDT 06/25/2024 9:35 PM CDT Brayan Swain M.D., M.S. LAB BLOOD NON ADD-ON Fin al Result [facility] [address] [place] [address] [facility] [address] [place] [address] [place] [id number] * (ABNORMAL) CBC with Differential, Blood (06/25/2024 12:28 PM CDT) Pathologist [facility] Hemoglobin 11.9 11.6 - 15.0 g/dL 06/25/2024 [...] M.D., M.S. LAB BLOOD ADD-ON Final R Huoshiult Performing Organization Address [facility] de Phone Number [facility] [address] [place] [address], [facility] 200 [place] [address] [facility] 200 [place] [address] * (ABNORMAL) Hemoglobin A1c (06/25/2024 12:28 PM [...] ADD-ON Final R esult Performing Organization Address City/[facility]/ZIP Co de Phone Number [facility] 200 [place], [place] [phone] [place] [address] 200 [place] [address] * Thyroid Function [place] (06/25/2024 12:27 PM CDT) Pathologist [facility] TSH, Sensitive 2.0 0.3 - 4.2 mIU/L 06/25/2024 3:25 PM CDT [facility] Blood (Blood, Venous) 06/25/2024 12:27 PM CDT 06/25/2024 2:31 PM CDT Brayan Swain M.D., M.S. LAB BLOOD ADD-ON Final R esult [facility] 200 [place], [place] [phone] [place] [address] 200 [place] [address] * SS-B/La Antibodies, IgG (06/25/2024 12:27 PM CDT) [facility] SS-B/La Ab, IgG, S <0.2 <1.0 (Negative) U 06/25/2024 5:45 PM CDT [facility] Blood (Blood, Venous) 06/25/2024 12:27 PM CDT 06/25/2024 4:52 PM CDT Brayan Sawin M.D., M.S. LAB BLOOD ADD-ON Final R esult [facility] [address] [place] [address] [facility] [address] [place] [id number] * SS-A/Ro Antibodies, IgG (06/25/2024 12:27 PM CDT) [facility] SS-A/Ro Ab, IgG, S <0.2 <1.0 (Negative) U 06/25/2024 5:45 PM CDT [facility] Blood (Blood, Venous) 06/25/2024 12:27 PM CDT 06/25/2024 4:52 PM CDT Brayan Swain M.D., M.S. LAB BLOOD ADD-ON Final R esult Performing Organization Address [facility]/ZIP Co de Phone Number [facility] [address] [place] [address] [facility] [address] [place] [address] * Thiamine (Vitamin B1), Whole Blood (06/25/2024 12:27 PM CDT) Thiamine (Vitamin B1), WB 139 70 - 180 nmol/L 06/28/2024 9:45 AM [facility] Comment: ----ADDITIONAL INFORMATION---- This test was developed [...] Fin al Result Performing Organization Address [facility]/ZIP Co de Phone Number [facility] [address] [place] [address] [facility] [address] [place] [address] [place] [address] * 25-Hydroxyvitamin D2 and D3 (06/25/2024 12:27 PM CDT) 25-Hydroxy D2 <4.0 ng/mL 07/01/2024 11:03 AM FINANCIAL ADVISOR [facility] 25-Hydroxy D3 75 ng/mL 07/01/2024 11:03 AM FINANCIAL ADVISOR [facility] 25-Hydroxy D Total 75 ng/mL 2023 11:03 AM [facility] Comment: Interpretation: 51-80 ng/mL (increased risk of [...] M.D., M.S. LAB BLOOD ADD-ON Final R [facility] Performing Organization Address [facility] Co de Phone Number [facility] [address] [place] [address] [facility] [address] [place] [address] [place] [address] * CRP (C-Reactive Protein) (06/25/2024 12:27 PM CDT) C-Reactive Protein (CRP), S 3.8 <5.0 mg/L 06/25/2024 3:25 PM CDT [facility] Blood (Blood, Venous) 06/25/2024 12:27 PM CDT 06/25/2024 2:31 PM CDT Brayan Swain M.D., M.S. LAB BLOOD ADD-ON Final R [facility] Performing Organization Address [facility] de Phone Number [facility] 200 [place] [address], [facility] 200 [place] [address] * DIONNE (Antinuclear Antibodies) (06/25/2024 12:27 PM CDT) Antinuclear Ab, S 0.3 <=1.0 (Negative) U 06/26/2024 12:01 PM CDT [facility] Comment: ----ADDITIONAL INFORMATION---- Method: Enzyme-linked immunoassay using HEp-2 nuclear extract supplemented with purified antigens. Blood (Blood, Venous) 06/25/2024 12:27 PM CDT 06/25/2024 4:54 PM CDT us Brayan Swain M.D., M.S. LAB BLOOD ADD-ON Final R esult [facility] [address] [place] [address] [facility] [address] [place] [address] * Magnesium (06/25/2024 12:27 PM CDT) Pathologist [facility] Magnesium, S 2.1 1.7 - 2.3 mg/dL 06/25/2024 3:25 PM CDT [facility] Blood (Blood, Venous) 06/25/2024 12:27 PM CDT 06/25/2024 2:31 PM CDT us Brayan Swain M.D., M.S. LAB BLOOD ADD-ON Final R esult [facility] [address] [place] [address], [facility] [address] [place] [address] * (ABNORMAL) Immunoglobulin G (IgG) (06/25/2024 12:27 PM CDT) Immunoglobulin G (IgG), S 753(L) 767 - 1590 mg/dL 06/25/2024 6:36 PM CDT [facility] Blood (Blood, Venous) 06/25/2024 12:27 PM CDT 06/25/2024 4:55 PM CDT us Mehreen Landis M.D. LAB BLOOD ADD-ON Final Resul t [facility] [address] [place] [address] [facility] [address] [place] [address] * Folate (06/25/2024 12:27 PM CDT) [facility] Folate, S >20.0 >=4.0 mcg/L 06/26/2024 8: 25 AM CDT [facility] Blood (Blood, Venous) 06/25/2024 12:27 PM CDT 06/25/2024 2:31 PM CDT Brayan Swain M.D., M.S. LAB BLOOD ADD-ON Final R esult [facility] 200 [place] [address], [facility] 200 [place] [address] * Ferritin (06/25/2024 12:27 PM CDT) [facility] Ferritin, S 15 11 - 328 mcg/L 06/25/2024 3:25 PM CDT [facility] Blood (Blood, Venous) 06/25/2024 12:27 PM CDT 06/25/2024 2:31 PM CDT Brayan Swain M.D., M.S. LAB BLOOD ADD-ON Final R esult Performing Organization Address City/[facility] Co de Phone Number [facility] [address] [place] [address], [place] [address] * Vitamin B12 Assay (06/25/2024 12:27 PM CDT) [facility] Vitamin B12 Assay, S 535 180 - 914 ng/L 06/26/2024 8:49 AM CDT [facility] Comment: ----ADDITIONAL INFORMATION---- In patients being evaluated [...] M.S. LAB BLOOD ADD-ON Final R esult [facility] [address] [place] [address], [facility] DTL [facility][note 3] [address] [place] [address] * Comprehensive Metabolic Panel (06/25/2024 12:27 PM CDT) [facility] Potassium, S 3.8 3.6 - 5.2 mmol/L [...] Final R esult Performing Organization Address [facility] Co de Phone Number [facility] 200 [place] [address], [facility] [address] [place] [address] * Riboflavin (Vitamin B2) (06/25/2024 12:26 PM CDT) Riboflavin (Vitamin B2), P 8 1 - 19 mcg/L 06/26/2024 10:39 PM CDT [facility] Comment: ----ADDITIONAL INFORMATION---- This test was [...] ADD-ON Fin al Result Performing Organization Address City/[facility]/ZIP Co de Phone Number [facility] [address] [place] [address] [facility] [address] [place] [address] [place] [address] * Vitamin B6 Profile (PLP and PA) (06/25/2024 12:26 PM CDT) Pyridoxal 5-Phosphate (PLP), P 16 5 - 50 mcg/L 07/01/2024 10:04 AM [facility] Comment: ----ADDITIONAL INFORMATION---- This test was developed and its performance characteristics determined by [facility] in a manner consistent with CLIA requirements. This test has not been cleared or approved by the U.S. Food and Drug Administration. Pyridoxic Acid (PA), P 7 3 - 30 mcg/L 07/01/2024 10:04 AM [facility] Comment: ----ADDITIONAL INFORMATION---- This test was developed and its performance characteristics determined by [facility] in a manner consistent with CLIA requirements. This test has not been cleared or approved by the U.S. Food and Drug Administration. Blood (Blood, Venous) 06/25/2024 12:26 PM CDT 06/26/2024 3:51 PM CDT Brayan Swain M.D., M.S. LAB BLOOD NON ADD-ON Fin al Result [facility] [place] [address] [place] [address] [facility] [address] [place] [address] [place] [address] * Estradiol (06/23/2024 3:30 PM CDT) Pathologist [facility] Estradiol, Mass Spectrometry, S 17 pg/mL 06/26/2024 11:28 AM CDT [facility] Comment: ----REFERENCE VALUE---- Premenopausal: 15-350 (E2 [...] PM CDT 06/24/2024 7:40 AM CDT Ada A Shay LABORER/KEY MAN, C.N.P., D.N.P. LAB BLOOD NON ADD-ON Final Result [facility] [address] [place] [address] [facility] [address] [place] [address] [place] [address] * CT Chest with IV Contrast (06/05/2024 [...] Radha Keen APRN C.N.P., M.S.N. 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 Alex Irvin Jacqueline Leavitt First Altern ate Health Care Agent Care Teams Pony Cylinder Press Operator Relationship Specialty Start Date End Date Elsewhere, Pcp PCP - General 11/07/23
--- OUTSIDE RECORDS SUMMARY | 2024-07-07 14:47 | XMS_ITS | Encounter Summary ---
Author Organization [facility] Address [address] [place] [address] Care Team Providers Care Cardiology Physician Name Role Phone Elsewhere, Pcp Primary Care Provider Unavailabl e Reason for Visit * Reason Comments Outpatient Infusion Gammagard * Episode Based Medications (Routine) - Authorized Specialty Diagnoses / Procedures Referred By Contac t Referred To Contact Diagnoses Hypogammaglobulinemia (HCC) Other Combined Immunodeficiencies (HCC) Procedures [place] GAMMAGARD LIQUID INJ Mehreen Landis M.D. Division of Allergic Diseases in [place], [place] [address] [place] [address] Phone: tel: fax: Referral ID Status Reason Start Date Expiration Date V isits Requested Visits Authorized [id number] Authorized 10/17/2023 08/25/2024 12 12 Encounter Details Date Type Department Care Team (Latest Contact Info) Description 06/25/2024 1:15 PM CDT Infusion Department of Infusion Therapy in [place], [place] [address] [facility] [address] [place], [place] [id number] Mehreen Landis M.D. Hypogammaglobulinemia (HCC) (Primary Dx); [...] In the past 12 months has e [employer], gas, oil, or water [employer] threatened to shut off services in your [...] declined 06/04/2022 How often do you attend [facility] or roman catholic services? Never 06/04/2022 Do you belong [...] and heating? Not very hard 06/04/2022 [facility] - Occupational Stress Questionnaire Answer Date Recorded [...] Master's degree (e.g., MA, MS, Milly, MEd, APARTMENT RENTAL AGENT, MADELYN) 06/04/2022 Comments No Sex and Gender [...] 16 06/25/2024 4:34 PM CDT Oxygen Saturation - - Inhaled Oxygen Concentration - - Weight 70.5 kg (155 lb 6.8 oz) 06/25/2024 12:41 PM CDT Height - - Body Mass Index 24.54 06/15/2024 1:22 PM CDT documented in this encounter Plan of Treatment Upcoming Encounters Date Type Department Care Team (Late st Contact Info) Description 07/21/2024 1:15 PM BOX OFFICE MANAGER Infusion Department of Infusion Therapy in [address] [address] Mehreen Landis M.D. 08/04/2024 4:00 PM BOX OFFICE MANAGER Comprehensive Visit Division of Pulmonary Medicine in [place], [place] [address] [place] [phone] Simon Mcnulty M.D., M.P.H. [address] [place] [address] 08/14/2024 1:15 PM BOX OFFICE MANAGER Infusion Department of Infusion Therapy in [address] [address] Mehreen Landis M.D. 09/07/2024 1:20 PM BOX OFFICE MANAGER Comprehensive Visit Department of Dermatology in [place], [place] [address] [place] [address] [phone] Sanjana Sahu M.D. 200 [place] [address] documented as of this encounter Visit Diagnoses Diagnosis Hypogammaglobulinemia (HCC)- Primary Other Combined Immunodeficiencies (HCC) documented in this encounter Administered Medications Inactive Administered Medications - up to 3 most recent administrations Medication Order MAR Action Action Date Dose Rate Site immune globulin (human) 10 % infusion 35 g (Gammagard) 35 g, intravenous, Once, On Christina 06/25/24 at 1300, For 1 dose, Pump programming: Use same weight used in dosing calculation- See Ordered Dose weight above. If no weight indicated: Calculate dose based on [place] Body Weight (IBW). If Actual Body Weight [...] IVIG administration criteria, Indications: primary immune deficiency disorderIndications:primary immune deficiency disorder Rate/Dose Change 06/25/2024 2:08 PM CDT 128 mL/hr Rate/Dose Change 06/25/2024 1:38 PM CDT 64.2 mL /hr New Bag 06/25/2024 1:06 PM CDT 35 g sodium chloride 0.9 % injection 3 mL 3 mL, intravenous, As needed, line care, Starting on Christina 06/25/24 at 1236, Prior to and following infusion and between multiple consecutive infusions.Indications:Hypogammaglobulinemia (HCC) Given 06/25/2024 4:31 PM CDT 3 mL Given 06/25/2024 12:57 PM CDT 3 mL documented in this encounter Care Teams Cardiology Physician Relationship Specialty Start Date End Date Elsewhere, Pcp PCP - General 11/07/23 documented as of this encounter
--- OUTSIDE RECORDS SUMMARY | 2024-07-07 14:48 | XMS_ITS | Encounter Summary ---
Author Organization [facility] Address [address] [place] [address] Care Team Providers Care Nursing Home Assistant Name Role Phone Elsewhere, Pcp Primary Care Provider Unavailabl e Reason for Visit * Episode Based Medications (Routine) - Authorized Specialty Diagnoses / Procedures Referred By Contac t Referred To Contact Diagnoses Hypogammaglobulinemia (HCC) Other Combined Immunodeficiencies (HCC) Procedures [place] GAMMAGARD LIQUID INJ Mehreen Landis M.D. Division of Allergic Diseases in [place], [place] [address] [place] [address] Phone: tel: fax: Referral ID Status Reason Start Date Expiration Date V isits Requested Visits Authorized [id number] Authorized 10/17/2023 08/25/2024 12 12 Encounter Details Date Type Department Care Team (Latest Contact Info) Description 04/30/2024 1:00 PM CDT Infusion Department of Infusion Therapy in [place], [place] [address] [facility] [address] [place], [place] [phone] Dages, Mehreen N, M.D. Hypogammaglobulinemia (HCC) (Primary Dx); Other Combined Immunodeficiencies (HCC) Discharge Disposition: Home or Self Care Social History Tobacco Use Types Packs/Day Years Used Date Smoking Tobacco: Never Smokeless Tobacco: Never Tobacco Cessation:Counseling Given: Not Answered Comments:I have never used tobacco. Alcohol Use Standard Drinks/Week Comments Never 0 (1 standard drink = 0.6 oz pur e alcohol) [facility] Utilities Answer Date Recorded In the past [address] [employer], gas, oil, or water [employer] threatened to shut off services in your [...] declined 06/04/2022 How often do you attend [facility] or moravian services? Never 06/04/2022 Do you [...] care, and heating? Not very hard 06/04/2022 [facility] - Occupational Stress Questionnaire Answer Date [...] Master's degree (e.g., MA, MS, Milly, MEd, REGULATORY ADMINISTRATOR, MADELYN) 06/04/2022 Comments No Sex and Gender [...] Body Mass Index 23.29 10/17/2023 12:17 PM STADIUM MANAGER documented in this encounter Plan of Treatment Upcoming Encounters Date Type Department Care Team (Late st Contact Info) Description 07/21/2024 1:15 PM STADIUM MANAGER Infusion Department of Infusion Therapy in [address] [address] Mehreen Landis M.D. 08/04/2024 4:00 PM STADIUM MANAGER Comprehensive Visit Division of Pulmonary Medicine in [place], [place] [address] [place] [phone] Simon Mcnulty M.D., M.P.H. [address] [place] [phone] 08/14/2024 1:15 PM STADIUM MANAGER Infusion Department of Infusion Therapy in [address] [address] Mehreen Landis M.D. 09/07/2024 1:20 PM STADIUM MANAGER Comprehensive Visit Department of Dermatology in [place], [place] [address] [place] [phone] Sanjana Sahu M.D. [address] [place] [phone] documented as of this encounter Visit Diagnoses [...] no weight indicated: Calculate dose based on [place] Body Weight (IBW). If Actual Body Weight [...] deficiency disorderIndications:primary immune deficiency disorder Rate/Dose Change 04/30/2024 2:52 PM CDT 128 mL/hr Rate/Dose Change 04/30/2024 2:20 PM CDT 64.2 mL /hr New Bag 04/30/2024 1:44 PM CDT 35 g 32.1 mL/hr sodium chloride 0.9 % injection 3 mL 3 mL, intravenous, As needed, line care, Starting on Christina 04/30/24 at 1306, Prior to and following infusion and between multiple consecutive infusions.Indications:Hypogammaglobulinemia (HCC) Given 04/30/2024 5:21 PM CDT 3 mL documented in this encounter Care Teams Nursing Home Assistant Relationship Specialty Start Date End Date Elsewhere, Pcp PCP - General 11/07/23 documented as of this encounter
--- OUTSIDE RECORDS SUMMARY | 2024-07-07 14:48 | XMS_ITS | Encounter Summary ---
Author Organization [facility] Address [address] [place] [address] Care Team Providers Care Warehouse And Receiving Supervisor Name Role Phone Elsewhere, Pcp Primary Care Provider Unavailabl e Encounter Details Date Type Department Care Team (Late st Contact Info) Description 05/11/2024 Clinical Communication Division of Thoracic Surgery in [place], [place] [address] [place] [phone] Rosaura Claudio M.D., Ph.D. [address] [place] [phone] Social History Tobacco Use Types Packs/Day Years Used Date Smoking Tobacco: Never Smokeless Tobacco: Never Comments:I have never used t obacco. Alcohol Use Standard Drinks/Week Comments Never 0 (1 standard drink = 0.6 oz pur e alcohol) [facility] Utilities Answer Date Recorded In [...] declined 06/04/2022 How often do you attend [facility] or sikh services? Never 06/04/2022 Do you belong to any clubs o r organizations such as religion groups, unions, fraternal or athletic groups, or [...] care, and heating? Not very hard 06/04/2022 [facility] [place] of Occupat ional Health - Occupational Stress [...] your living situation today? I have a [facility] place to live 11/08/2023 Education Answer Date Recorded What is the highest level of school you have completed or the highest degree you have received? Master's degree (e.g., MA, MS, Milly, MEd, DYE CAN OPERATOR, MADELYN) 06/04/2022 Comments No Sex and [...] st Contact Info) Description 07/21/2024 1:15 PM PNEUMATIC TUBE REPAIRER Infusion Department of Infusion Therapy in [address] [place] [address] Mehreen Landis M.D. 08/04/2024 4:00 PM PNEUMATIC TUBE REPAIRER Comprehensive Visit Division of Pulmonary Medicine in [place], [place] [address] [place] [phone] Simon Mcnulty M.D., M.P.H. [address] [place] [phone] 08/14/2024 1:15 PM PNEUMATIC TUBE REPAIRER Infusion Department of Infusion Therapy in [place], [place] [address] [place] [address] Mehreen Landis M.D. 09/07/2024 1:20 PM PNEUMATIC TUBE REPAIRER Comprehensive Visit Department of Dermatology in [place], [place] [address] [place] [address] Sanjana Sahu M.D. [address] [place] [phone] documented as of this encounter Visit Diagnoses Not on filedocumented in this encounter Care Teams Warehouse And Receiving Supervisor Relationship Specialty Start Date End Date Elsewhere, Pcp PCP - General 11/07/23 documented as of this encounter
--- OUTSIDE RECORDS SUMMARY | 2024-07-07 14:48 | XMS_ITS | Encounter Summary ---
Author Organization [facility] Address [address] [place] [address] Care Team Providers Care Collaborating Supervising Physician Name Role Phone Elsewhere, Pcp Primary Care Provider Unavailabl e Reason for Referral * MRI/CAT/PET Scan (Routine) - Closed Specialty Diagnoses / Procedures Referred By Joe allison Referred To Contact Radiology Diagnoses Thymoma Procedures CT Chest with IV Contrast CT Chest without IV Contrast Radha Keen APRN, C.N.P., M.S.N. [address] [place] [phone] Phone: tel: fax: [facility] Referral ID Status Reason Start Date Expiration Date Visits Re quested Visits Authorized [id number] Closed 11/11/2023 11/10/2024 1 1 Reason for Visit * MRI/CAT/PET Scan (Routine) - Closed Specialty Diagnoses / Procedures Referred By Contac t Referred To Contact Radiology Diagnoses Thymoma Procedures CT Chest with IV Contrast CT Chest without IV Contrast Radha Keen APRN, C.NCasandra., M.S.N. [address] [place] [phone] Phone: tel: fax: [facility] Referral ID Status Reason Start Date Expiration Date Visits Re quested Visits Authorized [id number] Closed 11/11/2023 11/10/2024 1 1 Encounter Details Date Type Department Care Team (Latest Contact Info) Description 06/05/2024 12:52 PM CDT - 06/05/2024 11:59 PM CDT Hospital Encounter Department of Radiology, [facility], in [place], [place] [address] [place] [address] Radha Keen APRN, C.N.P., M.S.N. [address] [place] [phone] Thymoma Discharge Disposition: Home or Self Care Social History Tobacco Use Types Packs/Day Years Used Date Smoking Tobacco: Never Smokeless Tobacco: Never Comments:I have never used t obacco. Alcohol Use Standard Drinks/Week Comments Never 0 (1 standard drink = 0.6 oz pur e alcohol) [facility] Utilities Answer Date Recorded In the past 12 months has [facility] [employer], gas, oil, or water [employer] threatened to shut off services in your [...] often do you attend chur ch or mosque services? Never 06/04/2022 Do you belong to any clubs o r organizations such as latter-day groups, unions, fraternal or athletic groups, [...] your living situation today? I have a [facility] place to live 11/08/2023 Education Answer Date Recorded What is the highest level of school you have completed or the highest degree you have received? Master's degree (e.g., MA, MS, Milly, MEd, MANAGER GALLERY, MADELYN) 06/04/2022 Comments No Sex and Gender [...] (two) times a week. Mon & Wed calcium-vitamin D3-vitamin K (VIACTIV) 650 mg-12.5 mcg [...] 1 tablet by mouth daily. omeprazole (PriLOSEC) [address] capsule Take 10 mg by mouth daily. 06/22/24-Padma urias tapering off this medication. 06/01/2024 sulfamethoxazole -trimethoprim (Bactrim) 400-80 mg per tablet [...] st Contact Info) Description 07/21/2024 1:15 PM AUTOMOTIVE REFINISHER Infusion Department of Infusion Therapy in [place], [place] [address] [place] [address] [place] [address] Mehreen Landis M.D. 08/04/2024 4:00 PM AUTOMOTIVE REFINISHER Comprehensive Visit Division of Pulmonary Medicine in [place], [place] [address] [place] [address] Simon Mcnulty M.D., M.P.H. [address] [place] [phone] 08/14/2024 1:15 PM AUTOMOTIVE REFINISHER Infusion Department of Infusion Therapy in [place], [place] [address] [place] [address] Mehreen Landis M.D. 09/07/2024 1:20 PM AUTOMOTIVE REFINISHER Comprehensive Visit Department of Dermatology in [place], [place] [address] [place] [address] Sanjana Sahu M.D. [address] [place] [phone] documented as of this encounter Procedures Procedure Name Priority Date/Time Associated Diagnosis Comments CT CHEST WITH IV CONTRAST RAD - Routine (most inpatients and all outpatients) 06/05/2024 2:02 PM CDT Thymoma documented in this encounter Results * CT Chest with IV Contrast (06/05/2024 [...] or metastatic disease evident in the chest. us Radha Keen APRN, C.N.P., M.S.N. IMG CT DE OCEDURES Final Result documented in this encounter Visit Diagnoses Diagnosis Thymoma documented in this encounter Administered Medications Inactive Administered Medications - up to 3 most recent administrations Medication Order MAR Action Action Date Dose Rate Site iopromide 300 mg iodine/mL injection 1-200 mL (Ultravist) 1-200 mL, intravenous, Once in imaging, contrast, Starting on Sat06/05/24 at 1334, For 1 dose, Imaging Protocol Orders, Dose per Radiant Medication Guidelines Given 06/05/2024 1:36 PM CDT 80 mL documented in this encounter Care Teams Collaborating Supervising Physician Relationship Specialty Start Date End Date Elsewhere, Pcp PCP - General 11/07/23 documented as of this encounter
--- OUTSIDE RECORDS SUMMARY | 2024-07-07 14:48 | XMS_ITS | Encounter Summary ---
Author Organization [facility] Address [address] [place] [address] Care Team Providers Care Final Inspector Shuttle Name Role Phone Elsewhere, Pcp Primary Care Provider Unavailabl e Encounter Details Date Type Department Care Team (Latest Contact Info) Description 06/04/2024 11:30 AM CDT Clinical Communication Virtual Review in [place], [place] [address] [place] [phone] Social History Tobacco Use Types Packs/Day Years Used Date Smoking Tobacco: Never Smokeless Tobacco: Never Tobacco Cessation:Counseling Given: Not Answered Comments:I have never used tobacco. Alcohol Use Standard Drinks/Week Comments Never 0 (1 standard drink = 0.6 oz pur e alcohol) [facility] Utilities Answer Date Recorded In [...] How often do you attend chur or catholic services? Never 06/04/2022 Do you [...] care, and heating? Not very hard 06/04/2022 [facility] of Occupat ional Health - Occupational Stress [...] living situation today? I have a [facility] place to live 11/08/2023 Education Answer Date Recorded What is the highest level of school you have completed or the highest degree you have received? Master's degree (e.g., MA, MS, Milly, MEd, AIRCRAFT BODY REPAIRER, MADELYN) 06/04/2022 Comments No Sex and Gender Information Value Date Recorded Sex Assigned at Female 06/04/2022 4:58 PM CDT Legal Sex Female 2:16 PM CDT Gender Identity Female 06/04/2022 4:58 PM CDT Sexual Orientation Straight 06/04/2022 4: 58 PM CDT documented as of this encounter Plan of Treatment Upcoming Encounters Date Type Department Care Team (Late st Contact Info) Description 07/21/2024 1:15 PM DIPPING MACHINE OPERATOR Infusion Department of Infusion Therapy in [place], [place] [address] [place] [address] [place] [address] Mehreen Landis M.D. 08/04/2024 4:00 PM DIPPING MACHINE OPERATOR Comprehensive Visit Division of Pulmonary Medicine in [place], [place] [address] [place] [phone] Simon Mcnulty M.D., M.P.H. [address] [place] [phone] 08/14/2024 1:15 PM DIPPING MACHINE OPERATOR Infusion Department of Infusion Therapy in [place], [place] [address] [facility] [place] [place] [address] Mehreen Landis M.D. 09/07/2024 1:20 PM DIPPING MACHINE OPERATOR Comprehensive Visit Department of Dermatology in [place], [place] [address] [place] [phone] Sanjana Sahu M.D. [address] [place] [phone] documented as of this encounter Visit Diagnoses Not on filedocumented in this encounter Care Teams Final Inspector Shuttle Relationship Specialty Start Date End Date Elsewhere, Pcp PCP - General 11/07/23 documented as of this encounter
--- OUTSIDE RECORDS SUMMARY | 2024-07-07 14:48 | XMS_ITS | Clinical Summary ---
Author Organization [facility] Address [place], [place] [address] Care Team Providers Care Opthalmic Tech Name Role Phone Chitra Bruno MD Primary [...] alcohol) occa Social Connections Answer Date Recorded Do you often feel lonely or isolated from those around you? 0 09/21/2023 Financial Resource Strain Answer Date R ecorded Difficulty of Paying Living Expenses 3 09/21/2023 Difficulty of Paying Living Expenses Not on file 09/21/2023 Food Insecurity Answer Date Recorded Do you worry your food will run out before you are able to buy more? 1 09/21/2023 Transportation Needs Answer Date Record ed Does lack of transportation keep you from medica l appointments? 1 09/21/2023 Does lack of transportation keep you from work, meetings or getting things that you need? 1 09/21/2023 Housing Stability Answer Date Recorded What is your housing situation today? 1 09/21/2023 Sex and Gender Information Value Date Recorded Sex Assigned at Not on file Gender Identity Not on file Sexual Orientation Not on file Obstetrics History Last Filed Vital Signs Vital Sign Reading Time Taken Comments Blood Pressure 137/79 10/02/2023 6:30 PM JAWBONE PULLER Pulse 84 10/02/2023 6:30 PM JAWBONE PULLER Temperature 36.7 ??C (98.1 ??F) 10/02/2023 6:30 PM CS T Respiratory Rate 18 10/02/2023 6:30 PM JAWBONE PULLER Oxygen Saturation 95% 10/02/2023 6:30 PM JAWBONE PULLER Inhaled Oxygen Concentration - - Weight 63 kg (139 lb) 09/21/2023 5:30 PM JAWBONE PULLER Height 172.7 cm (5' 8) 09/21/2023 6:36 PM JAWBONE PULLER Body Mass Index 21.13 09/21/2023 5:30 PM JAWBONE PULLER Plan of Treatment Health Maintenance Due Date [...] VIEWS LEFT (IA) Routine 09/21/2010 3:23 PM JAWBONE PULLER Abnormal mammogram XR DXA BONE DENSITY 2 SITES AXIAL Routine 09/12/2010 3:26 PM JAWBONE PULLER Osteopenia from Last 3 Months or Most Recently Relevant to Health Maintenance Results * XR FFDM MAMMO UNI ADDL VIEWS LEFT (09/21/2010 3:23 PM JAWBONE PULLER) Anatomical Region Laterality Modality BREASTS, Breast Left Left Mammography Impressions 09/22/2010 8:59 AM JAWBONE PULLER ACR 0 Incomplete: Need Additional Imaging Evaluation and/or Prior Mammograms for Comparison. RECOMMENDATION: ??Left breast ultrasound. Narrative 09/22/2010 8:59 AM JAWBONE PULLER UNILATERAL LEFT BREAST FULL-FIELD DIGITAL MAMMOGRAM - [...] BONE DENSITY 2 SITES (09/12/2010 3:26 PM JAWBONE PULLER) Anatomical Region Laterality Modality Spine, HIPS, HIPL, HIPR Other Narrative 09/21/2010 11:34 AM JAWBONE PULLER Please see scanned document for results of this study. Procedure Note Ivette Alfaro - 09/21/2010 Please see scanned document for results of this study. Chitra Bruno MD DEXA from Last 3 Months or Most Recently Relevant to Health Maintenance Advance Directives * Full Code (Latest Code Status on File) Date Activated Date Inactivated Comments 09/21/2023 5:55 PM 10/02/2023 9:17 PM Question Answer Comments Code Status Discussion: Reviewed Preferences Care Teams Opthalmic Tech Relationship Specialty Start Date End Date [place] [phone] PCP - General Family Practice 08/29/10
--- OUTSIDE RECORDS SUMMARY | 2024-07-07 14:48 | XMS_ITS | Encounter Summary ---
Author Organization [facility] Address [address] [place] [address] Care Team Providers Care Pickle Maker Name Role Phone Elsewhere, Pcp Primary Care Provider Unavailabl e Reason for Visit * Reason Comments Outpatient Infusion * Episode Based Medications (Routine) - Authorized Specialty Diagnoses / Procedures Referred By Contliz t Referred To Contact Diagnoses Hypogammaglobulinemia (HCC) Other Combined Immunodeficiencies (HCC) Procedures [place] GAMMAGARD LIQUID INJ Mehreen Landis M.D. Division of Allergic Diseases in [place], [place] [address] [place] [address] Phone: tel: fax: Referral ID Status Reason Start Date Expiration Date V isits Requested Visits Authorized [id number] Authorized 10/17/2023 08/25/2024 12 12 Encounter Details Date Type Department Care Team (Latest Contact Info) Description 05/28/2024 1:15 PM CDT Infusion Department of Infusion Therapy in [place], [place] [address] [place], [place] [phone] Mehreen Landis M.D. Other Combined Immunodeficiencies (HCC) (Primary Dx); Hypogammaglobulinemia (HCC) Social History Tobacco Use Types Packs/Day Years Used Date Smoking Tobacco: Never Smokeless Tobacco: Never Comments:I have never used t obacco. Alcohol Use Standard Drinks/Week Comments Never 0 (1 standard drink = 0.6 oz pur e alcohol) [facility] Utilities Answer Date Recorded In the past 12 months has e [employer], gas, oil, or water [employer] threatened to shut off services in your [...] declined 06/04/2022 How often do you attend [facility] or restorationist services? Never 06/04/2022 Do you belong to [...] care, and heating? Not very hard 06/04/2022 [facility] Occupat ional [facility] - Occupational Stress Questionnaire Answer [...] degree (e.g., MA, MS, Milly, MEd, SALES SUPERINTENDENT, MADELYN) 06/04/2022 Comments No Sex and Gender Information Value Date Recorded Sex Assigned at Female 06/04/2022 4:58 PM CDT Legal Sex Female 2:16 PM CDT Gender Identity Female 06/04/2022 4:58 PM CDT Sexual Orientation Straight 06/04/2022 4: 58 PM CDT documented as of this encounter Last Filed Vital Signs Vital Sign Reading Time Taken Comments Blood Pressure 119/52 05/28/2024 4:41 PM CDT Pulse 67 05/28/2024 4:41 PM CDT Temperature 36.6 ??C (97.9 ??F) 05/28/2024 4:41 PM CD T Respiratory Rate 16 05/28/2024 3:39 PM CDT Oxygen Saturation - - Inhaled Oxygen Concentration - - Weight 70.4 kg (155 lb 3.3 oz) 05/28/2024 1:12 P M CDT Height - - Body Mass Index 23.52 10/17/2023 12:17 PM ENVIRONMENTAL CONSERVATION OFFICER documented in this encounter Plan of Treatment Upcoming Encounters Date Type Department Care Team (Late st Contact Info) Description 07/21/2024 1:15 PM ENVIRONMENTAL CONSERVATION OFFICER Infusion Department of Infusion Therapy in [address] [address] Mehreen Landis M.D. 08/04/2024 4:00 PM ENVIRONMENTAL CONSERVATION OFFICER Comprehensive Visit Division of Pulmonary Medicine in [place], [place] [address] [place] [phone] Simon Mcnulty M.D., M.P.H. [address] [place] [phone] 08/14/2024 1:15 PM ENVIRONMENTAL CONSERVATION OFFICER Infusion Department of Infusion Therapy in [address] [address] Mehreen Landis M.D. 09/07/2024 1:20 PM ENVIRONMENTAL CONSERVATION OFFICER Comprehensive Visit Department of Dermatology in [place], [place] [address] [place] [phone] Sanjana Shau M.D. [address] [place] [phone] documented as of this encounter Visit Diagnoses Diagnosis Other Combined Immunodeficiencies (HCC)- Primary Hypogammaglobulinemia (HCC) documented in this encounter Administered Medications Inactive Administered Medications - up to 3 most recent administrations Medication Order MAR Action Action Date Dose Rate Site immune globulin (human) 10 % infusion 35 g (Gammagard) 35 g, intravenous, Once, On Christina 05/28/24 at 1330, For 1 dose, Pump programming: Use same weight used in dosing calculation- See Ordered Dose weight above. If no weight indicated: Calculate dose based on [place] Body Weight (IBW). If Actual Body Weight [...] deficiency disorderIndications:primary immune deficiency disorder Rate/Dose Change 05/28/2024 2:37 PM CDT 128 mL/hr Rate/Dose Change 05/28/2024 2:06 PM CDT 64.2 mL /hr New Bag 05/28/2024 1:31 PM CDT 35 g 32.1 mL/hr sodium chloride 0.9 % injection 3 mL 3 mL, intravenous, As needed, line care, Starting on Christina 05/28/24 at 1313, Prior to and following infusion and between multiple consecutive infusions.Indications:Hypogammaglobulinemia (HCC) Given 05/28/2024 5:00 PM CDT 3 mL documented in this encounter Care Teams Pickle Maker Relationship Specialty Start Date End Date Elsewhere, Pcp PCP - General 11/07/23 documented as of this encounter
--- OUTSIDE RECORDS SUMMARY | 2024-07-07 14:48 | XMS_ITS | Encounter Summary ---
Author Organization [facility] Address [address] [place] [address] Care Team Providers Care Senior Web Services Developer Name Role Phone Elsewhere, Pcp Primary Care Provider Unavailabl e Reason for Referral * Outpatient (Routine) - Authorized Specialty Diagnoses / Procedures Referred By Contac t Referred To Contact Thoracic Surgery Radha Keen APRN, C.N.P., M.S.N. [address] [place] [phone] Phone: tel: fax: [facility] Referral ID Status Reason Start Date Expiration Date V isits Requested Visits Authorized [id number] Authorized 06/05/2024 12/05/2025 1 1 * MRI/CAT/PET Scan (Routine) - Authorized Specialty Diagnoses / Procedures Referred By Contac t Referred To Contact Radiology Diagnoses Thymoma Procedures CT Chest without IV Contrast Radha Keen APRN, C.NLuz Maria, M.S.N. [address] [place] [phone] Phone: tel: fax: [facility] Referral ID Status Reason Start Date Expiration Date V isits Requested Visits Authorized [id number] Authorized 06/05/2024 06/05/2025 1 1 Reason for Visit * Outpatient (Routine) - Closed Specialty Diagnoses / Procedures Referred By Joe allison Referred To Contact Thoracic Surgery Radha Keen APRN, C.N.P., M.S.N. [address] [place] [phone] Phone: tel: fax: [facility] Referral ID Status Reason Start Date Expiration Date Visits Re quested Visits Authorized [id number] Closed 11/11/2023 05/12/2025 1 1 Encounter Details Date Type Department Care Team (Late st Contact Info) Description 06/05/2024 3:00 PM CDT Office Visit Division of Thoracic Surgery in [place], [place] [address] [place] [phone] Radha Keen APRN, C.NLuz Maria, M.S.N. [address] [place] [phone] Thymoma (Primary Dx) Social History Tobacco Use Types Packs/Day Years Used Date Smoking Tobacco: Never Smokeless Tobacco: Never Comments:I have never used t obacco. Alcohol Use Standard Drinks/Week Comments Never 0 (1 standard drink = 0.6 oz pur e alcohol) [facility] Utilities Answer Date Recorded In the past 12 months has e electric, gas, oil, or water [employer] threatened to shut off services in your [...] How often do you attend chur or episcopalian services? Never 06/04/2022 Do you belong to any clubs o r organizations such as restorationist groups, unions, fraternal or athletic groups, [...] very hard 06/04/2022 [facility] [place] of Occupat ional Health - Occupational Stress [...] your living situation today? I have a [facility] place to live 11/08/2023 Education Answer Date Recorded What is the highest level of school you have completed or the highest degree you have received? Master's degree (e.g., MA, MS, Milly, MEd, MULE DEVELOPER, MADELYN) 06/04/2022 Comments No Sex and Gender Information Value Date Recorded Sex Assigned at Female 06/04/2022 4:58 PM CDT Legal Sex Female 2:16 PM CDT Gender Identity Female 06/04/2022 4:58 PM CDT Sexual Orientation Straight 06/04/2022 4: 58 PM CDT documented as of this encounter Progress Notes * Radha Keen APRN, C.N.P., M.S.N. - 06/05/2024 3:00 PM CDT SUBJECTIVE Alexia Phillips is a 73 y.o. female who presents today for a lung cancer follow up visit. Dr. Claudio took her to the operating room on August 14, 2022 for a aryan clamshell mediastinal mass resection. 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 Margins negative by 1 mm. It was encapsulated without invasion of surrounding tissue. Unfortunately, she contracted COVID in 07/2023 and experienced sequela including pneumonia and persistent shortness of breath. 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 She is otherwise doing well. OBJECTIVE EXAM: CT CHEST WITH IV CONTRAST [...] nodules. IMPRESSION: Improvement/resolution of bilateral consolidation and groundglass opacities which should have been due to infection/inflammation. No recurrent or metastatic disease evident in the chest. ASSESSMENT / PLAN #[address] chest and follow up visit in 6 months. documented in this encounter Plan of Treatment Upcoming Encounters Date Type Department Care Team (Late st Contact Info) Description 07/21/2024 1:15 PM MOBILITY ENGINEER Infusion Department of Infusion Therapy in [place], [place] [address] [place] [address] Mehreen Landis M.D. 08/04/2024 4:00 PM MOBILITY ENGINEER Comprehensive Visit Division of Pulmonary Medicine in [place], [place] [address] [place] [phone] Simon Mcnulty M.D., M.P.H. [address] [place] [phone] 08/14/2024 1:15 PM MOBILITY ENGINEER Infusion Department of Infusion Therapy in [place], [place] [address] [place] [address] Mehreen Landis M.D. 09/07/2024 1:20 PM MOBILITY ENGINEER Comprehensive Visit Department of Dermatology in [place], [place] [address] [place] [phone] Sanjana Sahu M.D. [address] [place] [phone] Scheduled Orders Name Type Priority Associated Diagnoses Orde r Schedule CT Chest without IV Contrast Imaging RAD - Routine (most inpatients and all outpatients) Thymoma Expected: 12/04/2024, Expires: 06/05/2025 Scheduled Referrals Name Type Priority Associated Diagnoses Orde r Schedule Thoracic Surgery office visit (clinic) Outpatient Referral Routine Expected: 12/04/2024, Expires: 09/05/2025 documented as of this encounter Visit Diagnoses Diagnosis Thymoma- Primary documented in this encounter Care Teams Senior Web Services Developer Relationship Specialty Start Date End Date Elsewhere, Pcp PCP - General 11/07/23 documented as of this encounter
--- OUTSIDE RECORDS SUMMARY | 2024-07-07 14:48 | XMS_ITS | Encounter Summary ---
Author Organization [facility] Address [address] [place] [address] Care Team Providers Care Soaker Soda Worker Name Role Phone Elsewhere, Pcp Primary Care Provider Unavailabl e Reason for Visit * Episode Based Medications (Routine) - Authorized Specialty Diagnoses / Procedures Referred By Contac t Referred To Contact Diagnoses Hypogammaglobulinemia (HCC) Other Combined Immunodeficiencies (HCC) Procedures [place] GAMMAGARD LIQUID INJ Mehreen Landis M.D. Division of Allergic Diseases in [place], [place] [address] [place] [address] Phone: tel: fax: Referral ID Status Reason Start Date Expiration Date V isits Requested Visits Authorized [id number] Authorized 10/17/2023 08/25/2024 12 12 Encounter Details Date Type Department Care Team (Latest Contact Info) Description 04/02/2024 1:15 PM CDT Infusion Department of Infusion Therapy in [place], [place] [address] [place], [place] [phone] Dages, Mehreen N, M.D. Other Combined Immunodeficiencies (HCC) (Primary Dx); Hypogammaglobulinemia (HCC) Discharge Disposition: Home or Self Care Social History Tobacco Use Types Packs/Day Years Used Date Smoking Tobacco: Never Smokeless Tobacco: Never Comments:I have never used t obacco. Alcohol Use Standard Drinks/Week Comments Never 0 (1 standard drink = 0.6 oz pur e alcohol) [facility] Utilities Answer Date Recorded In the past 12 months has th e [employer], gas, oil, or water [employer] threatened to shut off services in your [...] declined 06/04/2022 How often do you attend [facility] or tenriism services? Never 06/04/2022 Do you belong to any clubs o r organizations such as hindu groups, unions, fraternal or athletic groups, or [...] care, and heating? Not very hard 06/04/2022 [facility] - Occupational Stress Questionnaire Answer Date Recorded [...] degree (e.g., MA, MS, Milly, MEd, MANAGER MASS, MADELYN) 06/04/2022 Comments No Sex and Gender [...] Body Mass Index 23.29 10/17/2023 12:17 PM PAINT MIXER HAND documented in this encounter Plan of Treatment Upcoming Encounters Date Type Department Care Team (Late st Contact Info) Description 07/21/2024 1:15 PM PAINT MIXER HAND Infusion Department of Infusion Therapy in [address] [address] Mehreen Landis M.D. 08/04/2024 4:00 PM PAINT MIXER HAND Comprehensive Visit Division of Pulmonary Medicine in [place], [place] [address] [place] [phone] Smion Mcnulty M.D., M.P.H. [address] [place] [phone] 08/14/2024 1:15 PM PAINT MIXER HAND Infusion Department of Infusion Therapy in [address] [address] Mehreen Landis M.D. 09/07/2024 1:20 PM PAINT MIXER HAND Comprehensive Visit Department of Dermatology in [place], [place] [address] [place] [phone] Sanjana Sahu M.D. [address] [place] [phone] documented as of this encounter Visit Diagnoses [...] no weight indicated: Calculate dose based on [place] Body Weight (IBW). If Actual Body Weight [...] deficiency disorderIndications:primary immune deficiency disorder Rate/Dose Change 04/02/2024 2:27 PM CDT 128 mL/hr Rate/Dose Change 04/02/2024 1:56 PM CDT 64.2 mL /hr New Bag 04/02/2024 1:24 PM CDT 35 g 32.1 mL/hr sodium chloride 0.9 % injection 3 mL 3 mL, intravenous, As needed, line care, Starting on Christina 04/02/24 at 1332, Prior to and following infusion and between multiple consecutive infusions.Indications:Hypogammaglobulinemia (HCC) Given 04/02/2024 4:48 PM CDT 3 mL Given 04/02/2024 1:23 PM CDT 3 mL Given 04/02/2024 1:15 PM CDT 3 mL documented in this encounter Care Teams Soaker Soda Worker Relationship Specialty Start Date End Date Elsewhere, Pcp PCP - General 11/07/23 documented as of this encounter
--- OUTSIDE RECORDS SUMMARY | 2024-07-07 14:48 | XMS_ITS | Encounter Summary ---
Author Organization [facility] Address [address] [place] [address] Care Team Providers Care Building Construction Supervisor Name Role Phone Elsewhere, Pcp Primary Care Provider Unavailabl e Reason for Visit * Reason Onset Date Comments Letter for outside providers and Valtrex 024 Encounter Details Date Type Department Care Team (Latest Contact Info) Description 03/23/2024 Clinical Communication Division of Allergic Diseases in [place], [place] [address] [place] [phone] Brayan Swain M.D., M.S. [address] [place] [phone] Letter for outside providers and Valtrex Social History Tobacco Use Types Packs/Day Years Used Date Smoking Tobacco: Never Smokeless Tobacco: Never Comments:I have never used t obacco. Alcohol Use Standard Drinks/Week Comments Never 0 (1 standard drink = 0.6 oz pur e alcohol) [facility] Utilities Answer Date Recorded In the past 12 months has [employer], or [employer] threatened to shut off services in your [...] How often do you attend chur or jain services? Never 06/04/2022 Do you belong to [...] care, and heating? Not very hard 06/04/2022 [facility] [place] of Occupat ional Health - Occupational Stress [...] your living situation today? I have a [facility] place to live 11/08/2023 Education Answer Date Recorded What is the highest level of school you have completed or the highest degree you have received? Master's degree (e.g., MA, MS, Milly, MEd, ADULT NEUROPSYCHOLOGIST, MADELYN) 06/04/2022 Comments No Sex and Gender Information Value Date Recorded Sex Assigned at Female 06/04/2022 4:58 PM CDT Legal Sex Female 2:16 PM CDT Gender Identity Female 06/04/2022 4:58 PM CDT Sexual Orientation Straight 06/04/2022 4: 58 PM CDT documented as of this encounter Plan of Treatment Upcoming Encounters Date Type Department Care Team (Late st Contact Info) Description 07/21/2024 1:15 PM HYDRAULIC JACK MECHANIC Infusion Department of Infusion Therapy in [place], [place] [address] [place] [address] Mehreen Landis M.D. 08/04/2024 4:00 PM HYDRAULIC JACK MECHANIC Comprehensive Visit Division of Pulmonary Medicine in [place], [place] [address] [place] [phone] Simon Mcnulty M.D., M.P.H. [address] [place] [phone] 08/14/2024 1:15 PM HYDRAULIC JACK MECHANIC Infusion Department of Infusion Therapy in [place], [place] [address] [place] [address] Mehreen Landis M.D. 09/07/2024 1:20 PM HYDRAULIC JACK MECHANIC Comprehensive Visit Department of Dermatology in [place], [place] [address] [place] [phone] Sanjana Sahu M.D. [address] [place] [phone] documented as of this encounter Visit Diagnoses Not on filedocumented in this encounter Care Teams Building Construction Supervisor Relationship Specialty Start Date End Date Elsewhere, Pcp PCP - General 11/07/23 documented as of this encounter
--- OUTSIDE RECORDS SUMMARY | 2024-07-07 14:48 | XMS_ITS | Encounter Summary ---
Author Organization [facility] Address [address] [place] [address] Care Team Providers Care Parks And Recreation Worker Name Role Phone Elsewhere, Pcp Primary Care Provider Unavailabl e Reason for Visit * Reason Onset Date Comments Pre-visit Intake 05/11/2024 Encounter Details Date Type Department Care Team (Latest Contact Info) Description 05/11/2024 1:00 PM CDT Clinical Communication Virtual Review in [place], [place] [address] [place] [phone] Pre-visit Intake Social History Tobacco Use Types Packs/Day Years Used Date Smoking Tobacco: Never Smokeless Tobacco: Never Comments:I have never used t obacco. Alcohol Use Standard Drinks/Week Comments Never 0 (1 standard drink = 0.6 oz pur e alcohol) [facility] Utilities Answer Date Recorded In [...] How often do you attend chur or spiritism services? Never 06/04/2022 Do you belong to any clubs o r organizations such as spiritism groups, unions, fraternal or athletic groups, or [...] care, and heating? Not very hard 06/04/2022 [facility] [place] of Occupat ional Health - Occupational Stress [...] your living situation today? I have a [facility] place to live 11/08/2023 Education Answer Date Recorded What is the highest level of school you have completed or the highest degree you have received? Master's degree (e.g., MA, MS, Milly, MEd, SPOOL SANDER, MADELYN) 06/04/2022 Comments No Sex and Gender Information Value Date Recorded Sex Assigned at Female 06/04/2022 4:58 PM CDT Legal Sex Female 2:16 PM CDT Gender Identity Female 06/04/2022 4:58 PM CDT Sexual Orientation Straight 06/04/2022 4: 58 PM CDT documented as of this encounter Plan of Treatment Upcoming Encounters Date Type Department Care Team (Late st Contact Info) Description 07/21/2024 1:15 PM NEW ACCOUNTS CLERK Infusion Department of Infusion Therapy in [address] [place] [address] Mehreen Landis M.D. 08/04/2024 4:00 PM NEW ACCOUNTS CLERK Comprehensive Visit Division of Pulmonary Medicine in [place], [place] [address] [place] [phone] Simon Mcnulty M.D., M.P.H. [address] [place] [address] 08/14/2024 1:15 PM NEW ACCOUNTS CLERK Infusion Department of Infusion Therapy in [place], [place] [address] [facility] [place] [address] Mehreen Landis M.D. 09/07/2024 1:20 PM NEW ACCOUNTS CLERK Comprehensive Visit Department of Dermatology in [place], [place] [address] [place] [phone] Sanjana Sahu M.D. [address] [place] [phone] documented as of this encounter Visit Diagnoses Not on filedocumented in this encounter Care Teams Parks And Recreation Worker Relationship Specialty Start Date End Date Elsewhere, Pcp PCP - General 11/07/23 documented as of this encounter
--- OUTSIDE RECORDS SUMMARY | 2024-07-07 14:48 | XMS_ITS | Encounter Summary ---
Author Organization [facility] Address [address] [place] [address] Care Team Providers Care Eeo Officer Name Role Phone Elsewhere, Pcp Primary Care Provider Unavailabl e Reason for Visit * Episode Based Medications (Routine) - Authorized Specialty Diagnoses / Procedures Referred By Contac t Referred To Contact Diagnoses Hypogammaglobulinemia (HCC) Other Combined Immunodeficiencies (HCC) Procedures [facility] GAMMAGARD [facility]QUID [facility]J Mehreen Landis M.D. Division of Allergic Diseases in [place], [place] [address] [place] [address] Phone: tel: fax: Referral ID Status Reason Start Date Expiration Date V isits Requested Visits Authorized [id number] Authorized 10/17/2023 08/25/2024 12 12 Encounter Details Date Type Department Care Team (Latest Contact Info) Description 04/02/2024 12:26 PM CDT - 04/02/2024 11:59 PM CDT Hospital Encounter Department of Laboratory Medicine and Pathology, [facility], in [place], [place] [address] [place] [address] [place] [phone] Mehreen Landis M.D. Hypogammaglobulinemia (HCC); Other Combined Immunodeficiencies (HCC) Discharge Disposition: Home or Self Care Social History Tobacco Use Types Packs/Day Years Used Date Smoking Tobacco: Never Smokeless Tobacco: Never Comments:I have never used t obacco. Alcohol Use Standard Drinks/Week Comments Never 0 (1 standard drink = 0.6 oz pur e alcohol) [facility] Utilities Answer Date Recorded In the past 12 months has e [employer], [employer], oil, or water [employer] threatened to shut off services in your [...] declined 06/04/2022 How often do you attend [facility] or gnosticist services? Never 06/04/2022 Do you belong to any clubs o r organizations such as catholic groups, unions, fraternal or athletic groups, [...] you are drinking? Patient does not drink 2 Q3: How often do you have [...] your living situation today? I have a [facility] to live 11/08/2023 Education Answer Date Recorded What is the highest level of school you have completed or the highest degree you have received? Master's degree (e.g., MA, MS, Milly, MEd, CCO, MADELYN) 06/04/2022 Comments No Sex and Gender [...] 2 (two) times a day with meals. diphenhydrAMINE- lidocaine-antaci d (Magic Mouthwash) 1:1:1 Take 10 mL by mouth as needed. 10/08/2023 docusate sodium 100 mg capsule Take 2 tablets (200 mg total) by mouth 2 (two) times a day as needed for constipation. 10/18/2023 estradioL (ESTRACE) 0.5 mg tablet Take 0.75 mg by mouth daily. 03/14/2022 lidocaine viscous (XYLOCAINE) 2 % mucosal solution Apply 15 mL to the mouth or throat 4 (four) times a day after meals and bedtime. Swish and spit, do not swallow. 100 mL 2 10/18/2023 multivitamin-min erals-lutein (CENTURY MATURE) tablet Take 1 tablet by mouth daily. omeprazole (PriLOSEC) [address] capsule Take 10 mg by mouth daily. 06/22/24-Curre ntly tapering off this medication. 06/01/2024 sulfamethoxazole -trimethoprim (Bactrim) 400-80 mg per tablet Take 1 tablet by mouth daily. 90 tablet 3 03/03/2024 valACYclovir (VALTREX) 500 mg tablet Take 1 tablet (500 mg total) by mouth 2 (two) times a day. 180 tablet 10/27/2023 cholecalciferol (VITAMIN D3) 10 mcg (400 Unit) tablet Take 2,000 Units by mouth. 03/14/2022 06/04/2024 glucosamine-gabi droitin 500-400 mg per tablet Take 2 tablets by mouth daily. 06/04/2024 sulfamethoxazole -trimethoprim (Bactrim DS) 800-160 mg per tabletIndication s:Prophylaxis, medical Take 1 tablet by mouth daily Indications: Prophylaxis, medical. 90 tablet 10/19/2023 06/04/2024 zinc sulfate (ZINCATE) 220 (50 mg zinc) capsule Take 220 mg by mouth. 06/04/2024 documented as of this encounter Plan of Treatment Upcoming Encounters Date Type Department Care Team (Late st Contact Info) Description 07/21/2024 1:15 PM [facility] Infusion Department of Infusion Therapy in [address] [address] Mehreen Landis M.D. 08/04/2024 4:00 PM [facility] Comprehensive Visit Division of Pulmonary Medicine in [place], [place] [address] [place] [phone] Simon Mcnulty M.D., M.P.H. [address] [place] [phone] 08/14/2024 1:15 PM [facility] Infusion Department of Infusion Therapy in [address] [address] Mehreen Landis M.D. 09/07/2024 1:20 PM [facility] Comprehensive Visit Department of Dermatology in [place], [place] [address] [place] [phone] Sanjana Sahu M.D. [address] [place] [phone] documented as of this encounter Procedures Procedure Name Priority Date/Time Associated Diagnosis Comments IMMUNOGLOBULIN G (IGG), S Routine 04/02/2024 12:31 PM CDT Hypogammaglobulinemia (HCC) Other Combined Immunodeficiencies (HCC) documented in this encounter Results * (ABNORMAL) Immunoglobulin G (IgG) (04/02/2024 12:31 PM CDT) Immunoglobulin G (IgG), S 711(L) 767 - 1590 mg/dL 04/03/2024 9:51 AM CDT [facility] Blood (Blood, Venous) 04/02/2024 12:31 PM CDT 04/03/2024 6:22 AM CDT us Mehreen Landis M.D. LAB BLOOD ADD-ON Final Resul t [facility] [address] [place] [address] [facility] [address] [place] [id number] documented in this encounter Visit Diagnoses Diagnosis Hypogammaglobulinemia (HCC) Other Combined Immunodeficiencies (HCC) documented in this encounter Care Teams Eeo Officer Relationship Specialty Start Date End Date Elsewhere, Pcp PCP - General 11/07/23 documented as of this encounter
--- NOTE | 2024-07-07 15:00 | CRLHL7_ITS ---
For Patients: As a result of the Century Cures Act, medical imaging exams and procedure reports are released immediately into your electronic medical record. You may view this report before your referring provider. If you have questions, please contact your health care provider. BILATERAL SCREENING MAMMOGRAM WITH COMPUTER-AIDED DETECTION AND TOMOSYNTHESIS TECHNIQUE: CC and MLO views were obtained. These mammographic images have been obtained using full-field digital technique. These mammographic images were interpreted with the benefit of computer-aided detection. Breast Tomosynthesis was used in this interpretation. COMPARISON FILM: 07/31/23, 07/19/23, 07/05/23. FINDINGS: The breasts are heterogeneously dense, which may obscure small masses. IMPRESSION: There is no radiographic evidence for malignancy. ASSESSMENT: BI-RADS Category 2: Benign RECOMMENDATION: Routine screening mammogram in 1 year. A lay language report of this examination will be provided to the patient. Dale Jordan M.D. Diagnostic Radiologist [email or web address] SP/Dictated by: Dale Jordan MD @ 07/08/2024 9:49:00 AM (Electronically Signed)
== END 2024-07-07 14:43 | disposition home or self-care (01) ==
PROVIDERS: PCP Family Medicine; Visit Provider Family Medicine
DX: Z12.31 Encounter for screening mammogram for malignant neoplasm of breast (principal); R92.333 Mammographic heterogeneous density, bilateral breasts
CPT/HCPCS: 77063; 77067

== ENCOUNTER 2025-04-06 11:08 | Outpatient (CLI) | payer MEDICARE, SELFPAY | END 2025-04-06 11:09 | disposition home or self-care (01) | LOC: NFLDREF 04-09 19:19 | PROVIDERS: PCP Family Medicine; Referring Provider Family Medicine; Visit Provider Family Medicine | DX: D50.0 Iron deficiency anemia secondary to blood loss (chronic) (principal); R53.83 Other fatigue; M85.88 Other specified disorders of bone density and structure, other site; E78.5 Hyperlipidemia, unspecified; M81.0 Age-related osteoporosis without current pathological fracture | CPT/HCPCS: 80053; 80061; 82306; 82607; 82728 ==

== ENCOUNTER 2025-07-12 14:47 | Outpatient (CLI) | payer MEDICARE, SELFPAY ==
--- NOTE | 2025-07-12 15:00 | CRLHL7_ITS ---
For Patients: As a result of the Century Cures Act, medical imaging exams and procedure reports are released immediately into your electronic medical record. You may view this report before your referring provider. If you have questions, please contact your health care provider. INDICATION: BILATERAL SCREENING MAMMOGRAM, ASYMPTOMATIC 74 Y/O FEMALE COMPARISON: 07/07/2024, 07/19/2023, 07/05/2023 TECHNIQUE: Digital mammogram in CC and MLO projections including computer-aided detection (CAD) and tomosynthesis. BREAST COMPOSITION: The breasts are heterogeneously dense, which may obscure small masses. FINDINGS: No suspicious findings. ASSESSMENT: BI-RADS 1 Negative RECOMMENDATION: Annual screening mammogram. A lay language report of this examination will be provided to the patient. Dictated by: Dale Jordan MD @ 07/13/2025 09:53:10 (Electronically Signed)
== END 2025-07-12 14:48 | disposition home or self-care (01) ==
LOC: MAMMO 14:47
PROVIDERS: PCP Family Medicine; Visit Provider Family Medicine
DX: Z12.31 Encounter for screening mammogram for malignant neoplasm of breast (principal); R92.333 Mammographic heterogeneous density, bilateral breasts
CPT/HCPCS: 77063; 77067